=== PATIENT | female | born 1980 | race Caucasian/White ===

== ENCOUNTER 2022-06-14 13:43 | Emergency (ER) | payer OTHER, SELFPAY ==
--- NOTE | 2022-06-14 13:46 | ED.EAR ---
HPI - Ear Problem General Chief complaint: Ear Stated complaint: EARACHE Time Seen by Provider: 06/14/22 13:52 Source: patient and RN notes reviewed Mode of arrival: ambulatory Limitations: no limitations History of Present Illness HPI Narrative: 42-year-old female presents with concern for left ear pressure. She reports mild right ear pressure. She reports she had ear pain, the pain is improving but she still has a lot of pressure. She denies sinus congestion, pain, drainage, cough. She denies drainage from the ear. She denies fever, body aches, chills, sweats. She reports she tried Sudafed without relief Complaint: ear pain Related Data Home Medications Medication Instructions Recorded Confirmed dextroamphetamine-amphetamine ER 40 mg PO AC 06/14/22 06/14/22 20 mg 24hr capsule,extend release dextroamphetamine-amphetamine ER 30 mg PO DIRECTED 06/14/22 06/14/22 30 mg 24hr capsule,extend release Allergies Allergy/AdvReac Type Severity Reaction Status Date / Time No Known Allergies Allergy Verified 06/14/22 13:50 Review of Systems Review of Systems: CONSTITUTIONAL: Denies malaise, chills, sweats, or fever. EYES: Denies visual changes, redness, or discharge. ENT: Denies rhinorrhea, congestion, sinus pain, and sore throat. Reports bilateral ear pressure, worse on the left CARDIOVASCULAR: Denies chest pain, palpitations, or edema. RESPIRATORY: Denies cough. Denies dyspnea. GASTROINTESTINAL: Denies abdominal pain, nausea, vomiting, diarrhea SKIN: Denies rash or itching. MUSCULOSKELETAL: Denies myalgia. NEUROLOGIC: Denies headache. All systems reviewed & are unremarkable except as noted in HPI and below PMFSH Comments At time of signature, agree with nursing past medical, surgical, social and family history. There is no relevant family history pertinent to the presenting complaint Exam Narrative: GENERAL: Well-appearing, well-nourished, and in no acute distress. HEAD: Normocephalic EYES: PERRLA, conjunctivae clear ENT: Nares clear, turbinates edematous, clear discharge. Mucous membranes moist. TM pearly modi with dull light reflex bilaterally; no tragal tenderness. Oropharynx not erythematous without lesions. Tonsils not enlarged and without exudate, no drooling, no hoarseness, no trismus, uvula midline. NECK: Supple. No lymphadenopathy CHEST: Clear to auscultation, breath sounds equal. No wheezing, rhonchi, rales, or stridor. No respiratory distress, speaks in full sentences. HEART: Regular rate and rhythm. No murmur heard. SKIN: Warm, dry, no rash. NEURO: Alert and oriented x3. PSYCH: Normal mood and affect Course Course Emergency Course: Patient is aware of diagnosis, understands and agrees to treatment plan. Anticipatory guidance given. Patient agrees to follow-up as directed and is aware of reasons to seek care at the emergency department. Portions of this record may have been created with voice recognition software Level of Care: Express Care Visit Vital Signs Vital signs: Reviewed. Medical Decision Making MDM Narrative Medical decision making narrative: Differential diagnosis considered: Malhotra virus, strep pharyngitis, allergic rhinitis, upper respiratory tract infection, sinusitis, rhinosinusitis, nasopharyngitis. viral pharyngitis, otitis media, otitis externa, otitis effusion, cerumen impaction, foreign body. Exam findings show no acute concerns or changes; patient is non-toxic appearing and is in no distress. Patient is appropriate for outpatient treatment and follow-up. Critical Care Time Critical Care Time Critical Care Time: No Discharge Plan Discharge Clinical Impression: Fluid level behind tympanic membrane of left ear Patient Disposition: Home, Self-Care Condition: Stable Instructions: Fluid In The Ear (Serous Otitis Media) (ED) Additional Instructions: Take medications as prescribed Recommend antihistamine such as Benadryl at night time and Zyrtec or Allegr
[2022-06-14 13:52] VITALS: BP 111/70; PULSE 93; RESP 16; TEMP 36.4; O2SAT 100
== END 2022-06-14 14:05 | disposition home or self-care (01) ==
PROVIDERS: Emergency Provider Nurse Practitioner
DX: H73.892 Other specified disorders of tympanic membrane, left ear (principal)
CPT/HCPCS: 99213; G0463

== ENCOUNTER 2022-09-06 09:25 | Emergency (ER) | payer OTHER, SELFPAY ==
[2022-09-06 09:32] VITALS: BP 122/76; PULSE 115; RESP 20; TEMP 36.4; O2SAT 100
--- NOTE | 2022-09-06 09:51 | ED.GENADULT ---
HPI - General Adult General Chief complaint: Anxiety Stated complaint: ANXIETY Time Seen by Provider: 09/06/22 09:51 Source: patient Mode of arrival: ambulatory Limitations: no limitations History of Present Illness HPI narrative: 42 yo F presents with c/o feeling down and unable to cope with her everyday stresses . States this first started a few months ago. 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 Today she states she was unable to go to work due to being tearful. States her and kids are a good support systems at home but that she still just does not feel her normal self. Does not feel like eating and is having a hard time sleeping. States that she does not enjoy the things that she use to. Last suffered from depression at the age of 19. Thinks this is episodal and she will be able to get past it but would like to try to medication to help. Appt with her PCP was cancelled Friday due to weather. She denies SI/HI. all systems reviewed and negative except as noted above. Related Data Home Medications Medication Instructions Recorded Confirmed dextroamphetamine-amphetamine ER 40 mg PO AC 06/14/22 09/06/22 20 mg 24hr capsule,extend release dextroamphetamine-amphetamine ER 30 mg PO DIRECTED 06/14/22 09/06/22 30 mg 24hr capsule,extend release Allergies Allergy/AdvReac Type Severity Reaction Status Date / Time No Known Allergies Allergy Verified 09/06/22 09:39 Review of Systems Review of Systems: CONSTITUTIONAL: Denies fever, chills, or sweats. EYES: Denies visual changes, redness, or discharge. ENT: Denies rhinorrhea, congestion, sore throat, or otalgia. CARDIOVASCULAR: Denies chest pain, palpitations, or edema. RESPIRATORY: Denies cough or dyspnea. GASTROINTESTINAL: Denies abdominal pain, nausea, vomiting, or diarrhea. GENITOURINARY: Denies dysuria or hematuria. SKIN: Denies rash or itching. MUSCULOSKELETAL: Denies back pain, joint pain, or myalgia. NEUROLOGIC: Denies headache, numbness, or weakness. PSYCHIATRIC: reports depression All other systems reviewed are negative, except as documented in HPI. PMFSH Comments At time of signature, agree with nursing past medical, surgical, social and family history. There is no relevant family history pertinent to the presenting complaint. Exam Narrative: GENERAL: This is a well-nourished, well-developed patient, in no apparent distress. HEAD: normocephalic, atraumatic. EYES: PERRL. Sclera clear/white. Vision is grossly intact. EARS: External ears normal NOSE: External nose normal NECK: Neck supple, non-tender without lymphadenopathy, masses or thyromegaly. CARDIOVASCULAR: Regular rate and rhythm without murmurs, gallops, or rubs. RESPIRATORY: Clear to auscultation. Breath sounds equal bilaterally. No wheezes, rales, or rhonchi. SKIN: warm, Dry, intact with no suspicious lesions or rash, good texture and turgor. NEURO: awake, alert, and oriented to person, place and time. There were no obvious focal neurologic abnormalities. EXTREMITIES: No joint tenderness, effusion, or edema noted. Course Course Level of Care: Express Care Visit Vital Signs Vital signs: Vital Signs Temperature 36.4 C 09/06/22 09:32 Pulse Rate 115 H 09/06/22 09:32 Respiratory Rate 20 09/06/22 09:32 Blood Pressure 122/76 09/06/22 09:32 Pulse Oximetry 100 09/06/22 09:32 Temperature 36.4 C 09/06/22 09:32 Pulse Rate 115 H 09/06/22 09:32 Respiratory Rate 20 09/06/22 09:32 Blood Pressure 122/76 09/06/22 09:32 Pulse Oximetry 100 09/06/22 09:32 Reviewed Medical Decision Making MDM Narrative Medical decision making narrative: will start patient on prozac. explained to her that she needs to follow up with a PCP TORRIE. Gave her the referral line for [facility] PCPs. Patient is aware of diagnosis, understands and agrees to treatment plan. Anticipatory guidance given. Patient agrees to follow-up as directed and is aware of reas
== END 2022-09-06 10:06 | disposition home or self-care (01) ==
PROVIDERS: Emergency Provider Nurse Practitioner Family
DX: F32.A Depression, unspecified (principal); F90.9 Attention-deficit hyperactivity disorder, unspecified type
CPT/HCPCS: 99213; G0463

== ENCOUNTER 2024-01-26 15:40 | Outpatient (CLI) | payer OTHER, SELFPAY ==
[2024-01-26 15:57] LABS: Basophils Percent Auto 0.6 % (0.2-1.2); Eosinophils Absolute Auto 0.1 K/mm3 (0-0.3); Hematocrit 40.2 % (37.0-47.0); Hemoglobin 12.9 g/dL (12.0-15.0); Immature Granulocyte Absolute 0.01 K/mm3 (0.00-0.031); Immature Granulocyte Percent A 0.2 % (0-0.5); Lymphocytes Absolute Auto 1.14 K/mm3 (0.9-3.2); Lymphocytes Percent Auto 23.3 % (18.3-44.2); Mean Corpuscular HGB Conc 32.1 g/dl (32-36); Mean Corpuscular Hemoglobin 27.9 pg (26-34); Mean Corpuscular Volume 86.8 fl (80-100); Mean Platelet Volume 11.3 fl (7.4-10.4); Monocytes Absolute Auto 0.5 K/mm3 (0.1-0.6); Monocytes Percent Auto 10.2 % (2.6-8.5); Neutrophils Absolute Auto 3.2 K/mm3 (1.3-6.7); Neutrophils Percent Auto 64.7 % (45.5-73.1); Platelet Count Result 195 k/mm3 (150-375); Red Blood Count 4.63 M/mm3 (4.2-5.4); Red Cell Distribution Width 13.5 % (11.5-14.5); White Blood Count 4.9 K/mm3 (4.5-10.0)
[2024-01-26 17:08] LABS: Alanine Aminotransferase 10 U/L (6-35); Albumin Level 4.6 g/dL (3.5-5.1); Alkaline Phosphatase 55 U/L (38-126); Anion Gap 8 mmol/L (4-12); Aspartate Amino Transferase 22 U/L (14-36); Bilirubin,Total 0.5 mg/dL (0.2-1.3); Blood Urea Nitrogen 13 mg/dL (7-17); Carbon Dioxide 25 mmol/L (22-30); Chloride 106 mmol/L (98-107); Estimated Glomerular Filt Rate > 60; Glucose 93 mg/dL (65-110); Lactate Dehydrogenase 163 U/L (120-246); Potassium 3.7 mmol/L (3.4-5.0); Sodium 139 mmol/L (137-145)
[2024-01-26 17:19] LABS: Iron 28 ug/dL (37-170)
[2024-01-26 17:29] LABS: Percent Iron Saturation 6 % (20-50)
[2024-01-26 17:57] LABS: Ferritin 5.17 ng/mL (6.24-137)
[2024-01-26 18:13] LABS: Folic Acid 9.6 ng/mL (2.76->20)
[2024-01-29 03:03] LABS: Immunoglobulin A 96 mg/dL (47-310); TTG IGA AB <1.0 U/mL
[2024-01-29 14:24] LABS: Methylmalonic Acid 90 nmol/L (55-335)
[2024-01-30 13:47] LABS: Soluble Transferrin Receptor 2.02 mg/L (0.76-1.76)
== END 2024-01-26 15:41 | disposition home or self-care (01) ==
PROVIDERS: Nurse Practitioner Family; PCP Family Medicine; Visit Provider Internal Medicine Hematology & Oncology
DX: D50.0 Iron deficiency anemia secondary to blood loss (chronic) (principal)
CPT/HCPCS: 36415; 80053; 82607; 82728; 82746; 82784; 83540; 83550; 83615; 83921; 84238; 85025; 86364

== ENCOUNTER 2024-03-11 06:00 | Day surgery (SDC) | payer OTHER, SELFPAY ==
[2024-03-03 12:21] VITALS: BMI 26.9
[2024-03-04 12:17] VITALS: BMI 26.6
[2024-03-11 06:55] VITALS: BP 102/70; PULSE 67; RESP 15; TEMP 36.6; O2SAT 100
--- NOTE | 2024-03-11 07:31 | WPDHPUPDATE1 ---
History and Physical Update Update Date/Time: 03/11/24 07:31 History and Physical has been reviewed, including an updated exam of the patient. There are NO changes in the patient's condition. Risks, benefits, and alternatives have been discussed and questions answered. Patient agrees to proceed with procedure.
[2024-03-11] MEDS: LACTATED RINGERS 1,000 ML 150 ML IV CONT (08:04)
--- NOTE | 2024-03-11 08:04 | WPDANESEPPF ---
Anes - Initial Pre Proc Eval Procedure: Operation Date: 03/11/24 08:00 Proposed Procedures p Esophagogastroduodenoscopy - Khurram Barcenas MD s Diagnostic Colonoscopy - Khurram Barcenas MD Date/Time: 03/11/24 08:04 Surgeon: Khurram Barcenas MD Pre Op Diagnosis: Iron deficiency anemia. Non-Celiac gluten w/o Patient Data Age: 43 Gender: F Height: 1.57 m Weight: 65.9 kg Last Vital Signs Temp 36.6 C 03/11/24 06:55 Pulse 67 03/11/24 06:55 Resp 15 03/11/24 06:55 BP 102/70 03/11/24 06:55 Pulse Ox 100 03/11/24 06:55 O2 Del Method Room Air 03/11/24 06:55 Allergies Allergy/AdvReac Type Severity Reaction Status Date / Time potassium sorbate AdvReac Intermediate Blister Verified 03/11/24 06:53 gluten AdvReac Abdominal Verified 03/11/24 06:53 Pain Home Medications Medication Instructions Recorded Confirmed Type naproxen sodium 220 mg capsule 220 mg PO BID PRN Pain (Scale 09/22/23 03/11/24 History (Aleve) Score 1-3) tranexamic acid 650 mg tablet 650 mg PO TID 09/22/23 03/11/24 History dextroamphetamine-amphetamine ER 60 mg PO DIRECTED #90 caps 03/10/24 03/11/24 Rx 20 mg 24hr capsule,extend release Patient hx anesthesia problems: none Family hx anesthesia problems: none Results Review: All pre-operative results and documents have been reviewed as part of the pre-operative evaluation. [facility] Past Medical History Medical History Hx of LEEP (loop electrosurgical excision procedure) of cervix complicating 2018 Surgical History Surgical History Hx of tonsillectomy 2000 Social History Social History Smoking status: Never smoker Alcohol intake: current Drinks per week: 2 Substance use: never Substance use type: does not use Lack of Transportation: No Lack of Food: Never True Current Housing: I Have Housing Concerned About Future Housing: No Difficulty Paying Gas/Electric Bills: No Difficulty Paying for Meds: No Currently Unemployed: No Education: Master's Degree or Higher Difficulty w/ Childcare or Family Care: No Living arrangements: with family Occupation/Education: 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 Gender identity (if verbalized by the patient): Female Sexual Orientation (if Verbalized by the Patient): Straight or Heterosexual Spiritual care concerns: No Agree to blood products: Yes Anes - Eval Final PreProcedure Day of Procedure 03/11/24 08:04 Patient weight: overweight Heart: regular rate and rhythm Lungs: clear to auscultation Airway: Mallampati scale class III Neurological: alert and oriented Last oral intake: >/= 8 hours ASA classification: II Emergent: no Anesthetic plan: proceed Anesthesia type and monitoring: general GIVS and standard monitoring Results Review: All pre-operative results and documents have been reviewed as part of the pre-operative evaluation. Informed Consent: The patient's anesthetic plan and its attendant risks and benefits were discussed with the patient/family/POA. Questions were solicited and answers provided to the satisfaction of the patient/family/POA.
[2024-03-11 08:40] VITALS: BP 94/65; PULSE 80; RESP 18; O2SAT 100
[2024-03-11 08:50] VITALS: BP 104/63; PULSE 68; RESP 16; O2SAT 100
--- NOTE | 2024-03-11 08:50 | WPDANESPN ---
Anes - Prog Note Post-Op Date/Time: 03/11/24 08:50 Cardiovascular status: normal Respiratory status: normal Airway patency: baseline Mental status: baseline Post-Op hydration status: normal Vital Signs: Last Vital Signs Temp 36.6 C 03/11/24 06:55 Pulse 80 03/11/24 08:45 Resp 18 03/11/24 08:45 BP 94/65 L 03/11/24 08:45 Pulse Ox 100 03/11/24 08:45 O2 Del Method Room Air 03/11/24 08:45 Pain Score (VAS): 0 I/O: Intake & Output 03/10/24 03/11/24 03/11/24 23:59 07:59 15:59 Intake Total 300 Balance 300 Patient Feedback: Patient satisfied with anesthetic care.
[2024-03-11 09:00] VITALS: BP 100/68; PULSE 63; RESP 16; O2SAT 100
== END 2024-03-11 09:08 | disposition home or self-care (01) ==
PROVIDERS: PCP Family Medicine; Visit Provider Internal Medicine Gastroenterology
PROC: 0DJ08ZZ Inspection of Upper Intestinal Tract, Via Natural or Artificial Opening Endoscopic (ICD-10-PCS; CPT 43235; principal; 2024-03-11 08:00)
PROC: 0DJD8ZZ Inspection of Lower Intestinal Tract, Via Natural or Artificial Opening Endoscopic (ICD-10-PCS; CPT 45378; 2024-03-11 08:00)
DX: Z12.11 Encounter for screening for malignant neoplasm of colon (principal); K64.8 Other hemorrhoids; D50.9 Iron deficiency anemia, unspecified; R19.5 Other fecal abnormalities; R11.0 Nausea
CPT/HCPCS: 45378; 43239

== ENCOUNTER 2024-03-11 07:00 | Outpatient (NON) | payer OTHER, SELFPAY | END 2024-03-11 07:01 | disposition home or self-care (01) | LOC: ANHLAB 03-12 08:20 | PROVIDERS: PCP Family Medicine; Visit Provider Internal Medicine Gastroenterology | DX: R14.0 Abdominal distension (gaseous) (principal) | CPT/HCPCS: 88305 ==

== ENCOUNTER 2024-05-14 13:54 | Outpatient (CLI) | payer OTHER, SELFPAY ==
[2024-05-14 14:20] LABS: Basophils Percent Auto 0.7 % (0.2-1.2); Eosinophils Absolute Auto 0.1 K/mm3 (0-0.3); Eosinophils Percent Auto 0.9 % (0-4.4); Hematocrit 39.6 % (37.0-47.0); Hemoglobin 12.7 g/dL (12.0-15.0); Immature Granulocyte Absolute 0.02 K/mm3 (0.00-0.031); Immature Granulocyte Percent A 0.4 % (0-0.5); Lymphocytes Absolute Auto 1.49 K/mm3 (0.9-3.2); Lymphocytes Percent Auto 26.3 % (18.3-44.2); Mean Corpuscular HGB Conc 32.1 g/dl (32-36); Mean Corpuscular Hemoglobin 27.9 pg (26-34); Mean Platelet Volume 11.1 fl (7.4-10.4); Monocytes Absolute Auto 0.5 K/mm3 (0.1-0.6); Monocytes Percent Auto 9.4 % (2.6-8.5); Neutrophils Absolute Auto 3.5 K/mm3 (1.3-6.7); Neutrophils Percent Auto 62.3 % (45.5-73.1); Platelet Count Result 223 k/mm3 (150-375); Red Blood Count 4.55 M/mm3 (4.2-5.4); Red Cell Distribution Width 12.9 % (11.5-14.5); White Blood Count 5.7 K/mm3 (4.5-10.0)
[2024-05-14 14:50] LABS: Iron 43 ug/dL (37-170)
[2024-05-14 15:01] LABS: Percent Iron Saturation 10 % (20-50)
[2024-05-14 15:07] LABS: Alanine Aminotransferase 11 U/L (6-35); Albumin Level 4.5 g/dL (3.5-5.1); Alkaline Phosphatase 57 U/L (38-126); Anion Gap 6 mmol/L (4-12); Aspartate Amino Transferase 22 U/L (14-36); Bilirubin,Total 0.7 mg/dL (0.2-1.3); Blood Urea Nitrogen 10 mg/dL (7-17); Calcium 9.2 mg/dL (8.4-10.2); Carbon Dioxide 25 mmol/L (22-30); Chloride 103 mmol/L (98-107); Estimated Glomerular Filt Rate > 60; Glucose 105 mg/dL (65-110); Sodium 134 mmol/L (137-145)
[2024-05-14 15:22] LABS: Ferritin 5.93 ng/mL (6.24-137)
[2024-05-14 15:54] LABS: Folic Acid 5.1 ng/mL (2.76->20)
== END 2024-05-14 13:55 | disposition home or self-care (01) ==
LOC: ANHLAB 13:57
PROVIDERS: PCP Family Medicine; Visit Provider Internal Medicine Hematology & Oncology
DX: D50.0 Iron deficiency anemia secondary to blood loss (chronic) (principal)
CPT/HCPCS: 36415; 80053; 82607; 82728; 82746; 83540; 83550; 85025

== ENCOUNTER 2024-07-14 15:28 | Outpatient (CLI) | payer OTHER, SELFPAY ==
[2024-07-14 16:15] LABS: Hematocrit 39.9 % (37.0-47.0); Hemoglobin 12.7 g/dL (12.0-15.0); Mean Corpuscular HGB Conc 31.8 g/dl (32-36); Mean Corpuscular Hemoglobin 28.6 pg (26-34); Mean Corpuscular Volume 89.9 fl (80-100); Mean Platelet Volume 10.9 fl (7.4-10.4); Platelet Count Result 330 k/mm3 (150-375); Red Blood Count 4.44 M/mm3 (4.2-5.4); Red Cell Distribution Width 16.2 % (11.5-14.5)
== END 2024-07-14 15:29 | disposition home or self-care (01) ==
LOC: ANHLAB 15:29
PROVIDERS: PCP Family Medicine; Visit Provider Obstetrics & Gynecology
DX: N93.9 Abnormal uterine and vaginal bleeding, unspecified (principal)
CPT/HCPCS: 36415; 85027

== ENCOUNTER 2024-07-19 00:38 | Day surgery (SDC) | payer OTHER, SELFPAY ==
[2024-07-16 08:15] VITALS: BMI 25.6
--- NOTE | 2024-07-16 08:21 | PC.NURSE ---
Report to the Outpatient Waiting Room, entrance under the green pavilion located off [facility], at time _0700_ on date _[id number]_. Planned Procedure Time: _0900_.? Time changes happen often and if your time is changed the preop area will call you the afternoon before. - You and your visitor will be asked to self-screen and do not enter if you have any COVID symptoms. Please call surgeon if you need to reschedule. - A mask is optional within the hospital at this time. Patients may have clear liquids (water, carbonated beverages, clear teas, apple juice) until 3 hours prior to surgery with a maximum of 20 ounces. - No food from midnight until time of surgery and no smoking. This includes no chewing gum, candy or mints. Take only the following medications with a SIP of water on the morning of surgery: __None__ DO NOT STOP ANY OF YOUR OTHER PRESCRIPTION MEDICATIONS PRIOR TO SURGERY EXCEPT THE FOLLOWING Medications to discontinue per physician ____Patient says she will not take Naproxen until after surgery.___ Please no make-up, nail frisian, hairspray, perfume, deodorant, or body powder the day of surgery.? No jewelry (including any body piercings) or valuables the day of surgery, leave them at home.? Please take a shower or bath the night before, or the morning of, surgery with an antibacterial soap.? Wear comfortable, loose fitting clothing.? - Jewelry must be removed prior to entering the operating room.? Rings and piercings that are not removed may be cut off. - The hospital will not accept responsibility for valuables.? - Please leave all valuables, including medications, at home the day of surgery. If you are going home after surgery, a licensed trackless trolley driver must drive you home.? - NO public transportation without another adult if you receive anesthesia. - We recommend that an adult stay with you for 24 hours following discharge. - We also recommend that you do not drive, make important decision, drink alcoholic beverages, or take any drugs that were not prescribed by your health care provider for at least 24 hours after your discharge time. Follow any additional instructions given to you from your surgeon. Telephone instructions given to _Rosalba_and asked if any additional questions and then verbalized understanding. Patient advised to call surgeon office or pre surgery nurse liaison [phone] if any additional questions.
--- NOTE | 2024-07-19 07:28 | P.HPUP_ITS ---
History and Physical Update Update Date/Time: 07/19/24 07:28 44-year-old female with ultrasound revealing thickened endometrium. Therefore will proceed with hysteroscopy and tissue sampling in the form of D&C. Long- term likely hysterectomy pending results of today's studies. Assessment: 1. Menometrorrhagia 2. Dysmenorrhea 3. Endometrial hypertrophy Plan: 1. Hysteroscopy with D&C History and Physical has been reviewed, including an updated exam of the patient. There are NO changes in the patient's condition. Risks, benefits, and alternatives have been discussed and questions answered. Patient agrees to proceed with procedure.
[2024-07-19 08:00] VITALS: BP 99/48; PULSE 86; RESP 14; TEMP 36.5; O2SAT 100
[2024-07-19] MEDS: LACTATED RINGERS 1,000 ML 30 ML IV CONT (08:00)
[2024-07-19] MEDS: ACETAMINOPHEN 500 MG TABLET 1000 MG PO (08:00)
[2024-07-19 08:04] LABS: BEDSIDEPREGUCG Negative (Negative)
--- NOTE | 2024-07-19 08:13 | P.PNAN_ITS ---
Anes - Initial Pre Proc Eval Procedure: Operation Date: 07/19/24 09:00 Proposed Procedures p Hysteroscopy Dilation and Curettage - Pato Talbert MD Date/Time: 07/19/24 08:13 Surgeon: Pato Talbert MD Pre Op Diagnosis: Abnormal Uterine Bleeding Patient Data Age: 44 Gender: F Height: 1.57 m Weight: 63 kg Last Vital Signs Temp 36.5 C 07/19/24 08:00 Pulse 86 07/19/24 08:00 Resp 14 07/19/24 08:00 BP 99/48 L 07/19/24 08:00 Pulse Ox 100 07/19/24 08:00 O2 Del Method Room Air 07/19/24 08:00 Allergies Allergy/AdvReac Type Severity Reaction Status Date / Time potassium sorbate AdvReac Intermediate Blister Verified 07/19/24 08:04 gluten AdvReac Abdominal Verified 07/19/24 08:04 Pain Home Medications ?Medication ?Instructions ?Recorded ?Confirmed ?Type naproxen sodium 220 mg capsule 220 mg PO BID PRN Pain (Scale 09/22/23 07/16/24 History (Aleve) Score 1-3) dextroamphetamine-amphetamine ER 60 mg (3 x 20 mg) PO DIRECTED 06/24/24 07/16/24 Rx 20 mg 24hr capsule,extend release #90 caps Laboratory Tests 07/19/24 08:00 POC Urine HCG, Qual Negative (Negative) Patient hx anesthesia problems: none Family hx anesthesia problems: none Results Review: All pre-operative results and documents have been reviewed as part of the pre- operative evaluation. [facility] Past Medical History Medical History Iron deficiency anemia, unspecified IBS (irritable bowel syndrome) Irregular periods Hx of LEEP (loop electrosurgical excision procedure) of cervix complicating 2018 Surgical History Surgical History History of endoscopy (~03/2024) H/O colonoscopy (~03/2024) Hx of tonsillectomy 2000 Social History Social History Smoking status: Never smoker Second hand tobacco smoke exposure: No Alcohol intake: current Drinks per week: 2 Substance use: never Substance use type: does not use Do You Feel Safe in your Home?: Yes Lack of Transportation: No Lack of Food: Never True Current Housing: Decline to Answer Concerned About Future Housing: Decline to Answer Difficulty Paying Gas/Electric Bills: Decline to Answer Difficulty Paying for Meds: Decline to Answer Currently Unemployed: Decline to Answer Education: Decline to Answer Difficulty w/ Childcare or Family Care: Decline to Answer Living arrangements: with family Additional living arrangements comments: Occupation/Education: 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 Gender identity (if verbalized by the patient): Female Sexual Orientation (if Verbalized by the Patient): Straight or Heterosexual Spiritual care concerns: No Agree to blood products: Yes Anes - Eval Final PreProcedure Day of Procedure 07/19/24 08:13 Patient weight: normal Heart: regular rate and rhythm Lungs: clear to auscultation Airway: Mallampati scale class 1 Neurological: alert and oriented Last oral intake: >/= 8 hours ASA classification: II Emergent: no Anesthetic plan: proceed Anesthesia type and monitoring: general GIVS and standard monitoring Results Review: All pre-operative results and documents have been reviewed as part of the pre-o perative evaluation. Informed Consent: The patient's anesthetic plan and its attendant risks and benefits were discussed with the patient/family/POA. Questions were solicited and answers provided to the satisfaction of the patient/family/POA.
[2024-07-19 08:54] VITALS: BP 97/65; PULSE 57; RESP 14; O2SAT 100
--- NOTE | 2024-07-19 08:59 | P.OP_ITS ---
Procedure Note - Detailed Date of Procedure 07/19/24 Pre-op Diagnosis 1. Menometrorrhagia 2. Dysmenorrhea 3. Endometrial hypertrophy Post-op Diagnosis Same Procedure Performed 1. Hysteroscopy 2. Dilation and curettage Surgeon Pato Talbert MD Anesthesia MAC Findings No polyps or fibroids were noted, there was significant hypertrophy and tissue removed. Description of Procedure Patient prepped and draped in the usual manner for this procedure. Hysterosco pic exam revealed thickened tissue throughout without specific polyp or fibroid noted. Sharp curetting throughout the cavity revealed a moderate amount of tissue which was sent for pathologic diagnosis. There was no significant bleeding at the end the procedure and the patient was sent to the recovery room in stable condition. Estimated Blood Loss 10 Drains No Packing No Pathology Yes Complications No immediate complications Condition Stable Disposition PACU [facility] Billing Surgery - Charge Forward: Surgery Billing
[2024-07-19 09:03] VITALS: O2SAT 100
[2024-07-19 09:20] VITALS: BP 97/51; PULSE 63; RESP 14; O2SAT 100
[2024-07-19 09:50] VITALS: BP 97/58; PULSE 67; RESP 14
--- OUTSIDE RECORDS SUMMARY | 2024-07-24 09:40 | XMS_ITS | Encounter Summary ---
Author Organization [facility] Address [address] [place] [address] Care Team Providers Care Management Nurse Rn Name Role Phone Tracey Patel MD Primary Care Provider [phone] Encounter Details Date Type Department Care Team (Latest Contact Info) Description 02/22/2021 Travel Social History Tobacco Use Types Packs/Day Years Used Date Smoking Tobacco: Never Smokeless Tobacco: Never Alcohol Use Standard Drinks/Week Comments Yes 0 (1 standard drink = 0.6 oz pur e alcohol) socially Sex and Gender Information Value Date Recorded Sex Assigned at Not on file Gender Identity Not on file Sexual Orientation Not on file COVID-19 Exposure Response Date Recorded In the last month, have you been in contact with someone who was confirmed or suspected to have Coronavirus / COVID-19? No / Unsure 02/22/2021 2:24 PM CDT documented as of this encounter Plan of Treatment Not on file documented as of this encounter Visit Diagnoses Not on filedocumented in this encounter Care Teams Management Nurse Rn Relationship Specialty Start Date End Date Tracey Patel MD PCP - General Family Medicine 06/13/17 documented as of this encounter
--- OUTSIDE RECORDS SUMMARY | 2024-07-24 09:40 | XMS_ITS | Referral Summary ---
Author Organization [facility] Address [address] [place] [address] Care Team Providers Care Branch Office Manager Name Role Phone Tracey Patel MD Primary Care Provider Source Comments [facility],non-owned Affiliates and Associated Physician Practices is amultiple site organization consisting of ambulatory clinics and hospital sitesin [place], [place], [place] and [place]. This disclosure is being madepursuant to the Care Everywhere program and may not contain all information available regarding this patient. Last updated 18.[facility] Allergies No known active allergies Medications * Be aware that medications may not be up to date on this document. Alwaysverify current medications with the patient. Medication Sig Dispensed Refills Start Date End Date Status amphetamine-dextroam phetamine (ADDERALL) 10 MG tablet Take 1 (one) tablet by mouth daily with lunch 30 tablet 03/01/2021 Active amphetamine-dextroam phetamine XR 24hr (ADDERALL XR) 30 MG capsule Take 1 (one) capsule by mouth every morning 30 capsule 03/01/2021 Active Active Problems Problem Noted Date Diagnosed Date Attention deficit hyperactiv ity disorder (ADHD), predominantly inattentive type 04/16/2018 Left breast lump 07/09/2017 Resolved Problems Problem Noted Date Diagnosed Date Resolved Date Cyst of right ovary 06/17/2017 07/09/20 17 Immunizations Name Administration Dates Next Due INFLUENZA VACCINE, QUADR. (F LUZONE; FLULAVAL; FLUARIX; AFLURIA QUADRIVALENT; 6MO+), 0.5 ML (IIV4) 05/19/2020 Social History Tobacco Use Types Packs/Day Years Used Date Smoking Tobacco: Never Smokeless Tobacco: Never Alcohol Use Standard Drinks/Week Comments Yes 0 (1 standard drink = 0.6 oz pur e alcohol) socially Sex and Gender Information Value Date Recorded Sex Assigned at Not on file Gender Identity Not on file Sexual Orientation Not on file Last Filed Vital Signs Vital Sign Reading Time Taken Comments Blood Pressure 115/69 05/19/2020 10:58 AM CDT Pulse 71 05/19/2020 10:58 AM CDT Temperature 36.6 ??C (97.9 ??F) 05/19/2020 10:58 AM C DT Respiratory Rate - - Oxygen Saturation - - Inhaled Oxygen Concentration - - Weight 62.1 kg (137 lb) 05/19/2020 10:58 AM CDT Height 157.5 cm (5' 2 ) 05/19/2020 10:58 AM CDT Body Mass Index 25.06 05/19/2020 10:58 AM CDT Plan of Treatment Not on file Procedures Procedure Name Priority Date/Time Associated Diagnosis Comments MAMMO BILAT DIAGNOSTIC Routine 07/17/2017 10:10 AM HYDRAULIC PRESS OPERATOR Left breast lump PAP IG LB +HPV APTIMA REFLEX 16,18/45 Routine 07/09/2017 3:07 PM HYDRAULIC PRESS OPERATOR Well woman exam with routine gynecological exam Screening for HPV (human papillomavirus) COMPREHENSIVE METABOLIC PANEL Routine 06/17/2017 10:22 AM HYDRAULIC PRESS OPERATOR Annual physical exam LIPID PROFILE W TCHOL/HDL Routine 06/17/2017 10:22 AM HYDRAULIC PRESS OPERATOR Annual physical exam from Last 3 Months or Most Recently Relevant to Health Maintenance Results * MAMMO DIAG DIRECT DIGITAL IMAGE BILA G0202 (07/17/2017 10:10 AM HYDRAULIC PRESS OPERATOR) Anatomical Region Laterality Modality Bilateral Mammography 07/17/2017 11:1 7 AM HYDRAULIC PRESS OPERATOR Narrative 07/17/2017 11:24 AM HYDRAULIC PRESS OPERATOR DIGITAL BILATERAL DIAGNOSTIC MAMMOGRAMS WITH CAD CORRELATION AND 3D TOMOSYNTHESIS PREVIOUS EXAM DATE: None. Baseline. INDICATIONS: Palpable soft tissue fullness superior left breast reported by patient's physician. TECHNIQUE: Standard views right and left breast, MLO and CC with 3-D tomosynthesis and CAD correlation. 90 degree lateral view left breast with 3-D tomosynthesis and CAD correlation. TISSUE DENSITY: Heterogeneously dense. This may lower the sensitivity of mammography. ??Please correlate with clinical exam. FINDINGS: No suspicious mass, architectural distortion or clustered microcalcification identified. Ultrasound examination performed this morning shows two small cysts at the superior left breast. No suspicious solid abnormality. Results were discussed in detail with the patient at the time of the examination. ASSESSMENT: BI-RADS 2 - Benign findings. RECOMMENDATIONS: Screening mammogram age 40. Manage patient on clinical basis. The above findings should be correlated with physical examination. ??A relatively nonspecific study should not preclude additional evaluation if suspicious findings are present clinically. An [employer] Certified Facility. [facility] utilize [employer] as a reminder system to notify patients of their next recommended mammogram. Edited by Jennifer Stockton on 07/17/2017 11:23 AM Joyce Saldivar MD MAMMO ORDERABLES * (ABNORMAL) PAP IG LB +HPV APTIMA REFLEX 16,18/45 (07/09/2017 3:07 PM HYDRAULIC PRESS OPERATOR) Diagnosis (A) [facility] ACCOUNT BILL Comment: EPITHELIAL CELL ABNORMALITY. HIGH-GRADE SQUAMOUS INTRAEPITHELIAL LESION (HGSIL); MODERATE DYSPLASIA IS PRESENT. Human papillomavirus Aptima Positive( A) Negative [facility] ACCOUNT BILL Comment: This test detects fourteen high-risk HPV types (16/18/31/33/35/39/45/ 51/52/56/58/59/66/68) without differentiation. Specimen Adequacy [facility] ACCOUNT BILL Comment: Satisfactory for evaluation. ??Endocervical and/or squamous metaplastic cells (endocervical component) are present. Clinician Provided ICD10 [facility] ACCOUNT BILL Comment: Z01.419 Z11.51 N63.20 Performed by [facility] ACCOUNT BILL Comment:Yasemin Cesar Cytote chnologist (ASCP) Electronically Signed by [facility] ACCOUNT BILL Comment:Zaria Mathew MD, P athologist Comment . [facility] ACCOUNT BILL Pathologist Provided ICD10 [facility] ACCOUNT BILL Comment:R87.613 Note [facility] ACCOUNT BILL Comment: The Pap smear is a screening test designed to aid in the detection of premalignant and malignant conditions of the uterine cervix. ??It is not a diagnostic procedure and should not be used as the sole means of detecting cervical cancer. ??Both false-positive and false-negative reports do occur. ? . IGLBP CPT Code Automation [facility] ACCOUNT BILL Comment: This liquid based ThinPrep(R) pap test was screened with the use of an image guided system. PART OF UTERINE CERVIX / Unknown 07/09/2017 3:07 PM HYDRAULIC PRESS OPERATOR 07/09/2017 Narrative [facility] ACCOUNT BILL - 07/15/2017 5:10 PM HYDRAULIC PRESS OPERATOR Source.............Cervix LMP / Prev Treat...BJW=[id number] No. of containers..01 ThinPrep Vial Resulting Agency Comment [facility] [address] ??Jason AguiarVannesa [id number] Joyce Saldivar MD LAB - PATHOLOGY/CYTO LOGY ORDERABLES [facility] ACCOUNT BILL [address] [place] [address] * LIPID PROFILE W TCHOL/HDL (06/17/2017 10:22 AM HYDRAULIC PRESS OPERATOR) Cholesterol 185 <200 mg/dL [facility] ACCOUNT BILL Triglycerides 39 <150 mg/dL [facility] ACCOUNT BILL HDL Cholesterol 83 >40 mg/dL [facility] ACCOUNT BILL VLDL Calculated 8 <=30 mg/dL [facility] ACCOUNT BILL LDL Calculated 94 <130 mg/dL [facility] ACCOUNT BILL Comment:LDL/HDL RATIO BLOOD (SSM) 1.1 <5.0 Cholesterol/HDL Ratio 2.2 <4.5 [facility] ACCOUNT BILL Comment:FASTING Blood BLOOD SPECIMEN / Unknown 06/17/2017 10:22 AM HYDRAULIC PRESS OPERATOR 06/17/2017 Narrative Resulting Agency Comment [facility] Health [facility] [address] ??[place] [phone] Tracey Patel MD LAB - CHEMISTRY ORDE RABLES [facility] ACCOUNT BILL [address] [place] [address] * (ABNORMAL) COMPREHENSIVE METABOLIC PANEL (06/17/2017 10:22 AM HYDRAULIC PRESS OPERATOR) Glucose 79 74 - 106 mg/dL [facility] ACCOUNT BILL BUN 12 7 - 21 mg/dL [facility] ACCOUNT BILL Creatinine 0.58 0.50 - 1.30 mg/dL [facility] ACCOUNT BILL eGFR by MDRD >60 >60 mL/min/1.7 3m2 [facility] ACCOUNT BILL eGFR by MDRD >60 >60 mL/min/1.7 3m2 [facility] ACCOUNT BILL Sodium 139 136 - 145 mmol/L [facility] ACCOUNT BILL Potassium 4.0 3.5 - 5.1 mmol/L [facility] ACCOUNT BILL Chloride 105 98 - 107 mmol/L [facility] ACCOUNT BILL CO2 26 22 - 31 mmol/L [facility] ACCOUNT BILL Calcium 8.9 8.5 - 10.1 mg/dL [facility] ACCOUNT BILL Protein Total 7.4 6.4 - 8.2 gm/dL [facility] ACCOUNT BILL Albumin 4.4 3.4 - 5.0 gm/dL [facility] ACCOUNT BILL Bilirubin Total 0.7 0.2 - 1.0 mg/dL [facility] ACCOUNT BILL Alkaline Phosphatase 53 38 - 126 U/L [facility] ACCOUNT BILL AST 13 5 - 40 U/L [facility] ACCOUNT BILL ALT 12(L) 13 - 61 U/L [facility] ACCOUNT BILL Comment:FASTING Blood BLOOD SPECIMEN / Unknown 06/17/2017 10:22 AM HYDRAULIC PRESS OPERATOR 06/17/2017 Narrative Resulting Agency Comment [facility] Health [facility] [address] ??[place] [phone] Tracey Patel MD LAB - CHEMISTRY LEXX RAMIREZ [facility] ACCOUNT BILL [address] [place] [address] from Last 3 Months or Most Recently Relevant to Health Maintenance Care Teams Branch Office Manager Relationship Specialty Start Date End Date Tracey Patel MD PCP - General Family Medicine 06/13/17
--- OUTSIDE RECORDS SUMMARY | 2024-07-24 09:40 | XMS_ITS | Encounter Summary ---
Author Organization [facility] Address [address] [place] [address] Care Team Providers Care Deep Submergence Vehicle Operator Name Role Phone Tracey Patel MD Primary Care Provider [phone] Reason for Visit * Reason Onset Date Comments MEDICATION REFILL 06/01/2020 MEDICATION REFILL 08/24/2020 Encounter Details Date Type Department Care Team (Late st Contact Info) Description 06/01/2020 Refill [facility] Medical [facility] - Family Medicine [id number] [place] [address] [phone] Tracey Patel MD [address] [place] [address] [phone] MEDICATION REFILL; MEDICATION REFILL Social History Tobacco Use Types Packs/Day Years [...] have Coronavirus / COVID-19? No / Unsure 05/09/2020 11:22 AM CDT documented as of this encounter Miscellaneous Notes * Telephone Encounter - Tracey Patel MD - 06/01/2020 10:46 AM CDT Let her know the refill was sent in for the 10 mg dose. * Telephone Encounter - Janae Rodriguez - 06/01/2020 9:12 AM CDT Rosalba Jimenez No Known Allergies Requested Prescriptions Pending Prescriptions Disp Refills ??? amphetamine-dextroamphetamine (ADDERALL) 5 MG tablet 30 tablet 0 Sig: Take 1 tablet by mouth daily with lunch Last Refill: 05/19/2020 Last Office Visit: 05/19/2020 documented in this encounter Plan of Treatment Not on file documented as of this encounter Visit Diagnoses Not on filedocumented in this encounter Care Teams Deep Submergence Vehicle Operator Relationship Specialty Start Date End Date Tracey Patel MD PCP - General Family Medicine 06/13/17 documented as of this encounter
--- OUTSIDE RECORDS SUMMARY | 2024-07-24 09:40 | XMS_ITS | Encounter Summary ---
Author Organization [facility] Address [address] [place] [address] Care Team Providers Care Certified Executive Chef Name Role Phone Tracey Patel MD Primary Care Provider [phone] Reason for Visit * Reason Onset Date Comments MEDICATION REFILL 07/03/2020 Encounter Details Date Type Department Care Team (Late st Contact Info) Description 07/03/2020 Refill [facility] Medical [facility] - Family Medicine [id number] [place] [phone] Tracey Patel MD [address] [place] [phone] MEDICATION REFILL Social History Tobacco Use Types Packs/Day Years Used Date Smoking Tobacco: Never Smokeless Tobacco: Never Alcohol Use Standard Drinks/Week Comments Yes 0 (1 standard drink = 0.6 oz pur e alcohol) socially Sex and Gender Information Value Date Recorded Sex Assigned at Not on file Gender Identity Not on file Sexual Orientation Not on file documented as of this encounter Miscellaneous Notes * Telephone Encounter - Tracey Patel MD - 07/03/2020 8:49 PM CST Let her know her refill has been sent in. ALT WORKER * Telephone Encounter - Bere Martinez MA - 07/03/2020 9:42 AM CST Rosalba Jimenez No Known Allergies Requested Prescriptions Pending Prescriptions Disp Refills ??? amphetamine-dextroamphetamine (ADDERALL) 10 MG tablet 30 tablet 0 Sig: Take 1 tablet by mouth daily with lunch ??? amphetamine-dextroamphetamine XR 24hr (ADDERALL XR) 30 MG capsule 30 capsule 0 Sig: Take 1 capsule by mouth every morning Last Refill: 06/01/20 06/06/20 Last Office Visit: 05/19/2020 ALT WORKER documented in this encounter Plan of Treatment Not on file documented as of this encounter Visit Diagnoses Not on filedocumented in this encounter Care Teams Certified Executive Chef Relationship Specialty Start Date End Date Tracey Patel MD PCP - General Family Medicine 06/13/17 documented as of this encounter
--- OUTSIDE RECORDS SUMMARY | 2024-07-24 09:40 | XMS_ITS | Encounter Summary ---
Author Organization [facility] Address [address] [facility] [place] [address] Care Team Providers Care Perfumer Name Role Phone Tracey Patel MD Primary Care Provider [phone] Reason for Visit * Reason Comments Medication Check Encounter Details Date Type Department Care Team (Latest Contact Info) Description 05/19/2020 11:00 AM CDT Office Visit [facility] - Family Medicine [id number] [place] [phone] Tracey Patel MD [address] [place] [phone] Attention deficit hyperactivity disorder (ADHD), predominantly inattentive type (Primary Dx); Right lateral epicondylitis; Need for prophylactic vaccination and inoculation against influenza Social History Tobacco Use Types Packs/Day Years [...] AM CDT documented as of this encounter Last Filed Vital Signs Vital Sign Reading [...] Mass Index 25.06 05/19/2020 10:58 AM CDT documented in this encounter Progress Notes * Bere Martinez MA - 05/19/2020 1:21 PM CDT Patient received 0.5 ml of flu vaccine in the left deltoid * Tracey Patel MD - 05/19/2020 11:21 AM CDT Subjective Rosalba Jimenez is a 40 year old female here for: Follow-up of ADHD. She has been on Adderall for manyyears but feels she needs a higher dose now. 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 She thought it may be due to stress and anxiety as her tension issue started around October atthe time of the pandemic so she waited too long time before requesting a higher dose. Her anxiety level has improved significantly but she is still having difficulty focusing and staying organized. Also, she moved recently and was doing a lot of painting in the new house and now has a little bit of right elbow lateral discomfort. It has improved significantly and she is no longer painting. She just wanted to mention this. She is right-hand dominant. PHYSICAL EXAM: BP 115/69 Pulse 71 Temp 97.9 ??F (36.6 ??C) Ht 1.575 m (5' 2 ) Wt 62.1 kg (137 lb) LMP 06/23/2019 (Approximate) BMI 25.06 kg/m?? Wt Readings from Last 3 Encounters: 05/19/20 62.1 kg (137 lb) 06/28/19 56.9 kg (125 lb 6.4 oz) 02/02/19 56.1 kg (123 lb 9.6 oz) General appearance: alert, cooperative, pleasant, in no acute distress. Psych: Well dressed and groomed, good eye contact. Speech is logical and regular. Good insight and judgement. No evidence of hallucinations or delusions. Not suicidal and contracts for safety. She has only mild discomfort over the right lateral elbow but no swelling or deformity. Strength and sensation are normal. Recent Labs Component Name 06/17/17 1022 OCBLCAXT15BM 22.79* ASSESSMENT: 1. Attention deficit hyperactivity disorder (ADHD), predominantly inattentive type 2. Right lateral epicondylitis 3. Need for prophylactic vaccination and inoculation against influenza Plan Orders Placed This Encounter ??? FLU VACCINE QUAD IIV4 SPLIT PF IM ??? amphetamine-dextroamphetamine (ADDERALL) 5 MG tablet Sig: Take 1 tablet by mouth daily with lunch Dispense: 30 tablet Refill: 0 She will continue Adderall XR 30 mg every morning but will add immediate release Adderall 5 mg around lunchtime. She may increase this to 10 mg after 7 days if needed. She is advised to let me know if symptoms do not improve as expected so that we can adjust the medication further if needed. We discussed doing labs today but she would rather not unless absolutely necessary. Her last labs were 3 years ago and were normal other than low vitamin-D. I stressed the importance of taking a vitamin-D supplement of 1000 IU daily. She is advised to ice her elbow and may take an [id number]-[id number] anti- inflammatory such as Aleve oribuprofen and continue resting and let me know if symptoms do not improve over the next few weeks as expected. She voiced understanding and agreement with plan. She received flu vaccine today. documented in this encounter Plan of Treatment Not on file documented as of this encounter Visit Diagnoses Diagnosis Attention deficit hyperactivity disorder (ADHD), predominantly inattentive type- Primary Right lateral epicondylitis Lateral epicondylitis of elbow Need for prophylactic vaccination and inoculation against influenza documented in this encounter Care Teams Perfumer Relationship Specialty Start Date End Date Tracey Patel MD PCP - General Family Medicine 06/13/17 documented as of this encounter
--- OUTSIDE RECORDS SUMMARY | 2024-07-24 09:40 | XMS_ITS | Encounter Summary ---
Author Organization [facility] Address [facility] [place] [address] Care Team Providers Care Clinical Support Nurse Name Role Phone Tracey Patel MD Primary Care Provider [phone] Reason for Visit * Reason Onset Date Comments MEDICATION REFILL 01/06/2020 Encounter Details Date Type Department Care Team (Late st Contact Info) Description 01/06/2020 Refill [facility] Medical [facility] - Family Medicine [id number] [place] [phone] Tracey Patel MD [address] [place] [phone] MEDICATION REFILL Social History Tobacco Use [...] Telephone Encounter - Tracey Patel MD - 01/06/2020 8:52 AM CDT Let her know the refill has been sent in. * Telephone Encounter - Amanda Casillas - 01/06/2020 8:49 AM CDT Rosalba Jimenez No Known Allergies Requested Prescriptions Pending Prescriptions Disp Refills ??? amphetamine-dextroamphetamine XR 24hr (ADDERALL XR) 30 MG capsule 30 capsule 0 Sig: Take 1 capsule by mouth every morning Last Refill: 12/06/19 Last Office Visit: 06/28/19 documented in this encounter Plan of Treatment Not on file documented as of this encounter Visit Diagnoses Not on filedocumented in this encounter Care Teams Clinical Support Nurse Relationship Specialty Start Date End Date Tracey Patel MD PCP - General Family Medicine 06/13/17 documented as of this encounter
--- OUTSIDE RECORDS SUMMARY | 2024-07-24 09:40 | XMS_ITS | Encounter Summary ---
Author Organization [facility] Address [address] [place] [address] Care Team Providers Care Renal Case Manager Name Role Phone Tracey Patel MD Primary Care Provider [phone] Reason for Visit * Reason Onset Date Comments MEDICATION REFILL 09/29/2020 Encounter Details Date Type Department Care Team (Late st Contact Info) Description 09/29/2020 Refill [facility] - Family Medicine [id number] [place] [phone] Tracey Patel MD [address] [place] [phone] MEDICATION REFILL Social History Tobacco Use [...] encounter Miscellaneous Notes * Telephone Encounter - Arabella Davila - 09/29/2020 2:03 PM CST Patient notified of refill approval. KER STRAIGHTENER * Telephone Encounter - Tracey Patel MD - 09/29/2020 1:22 PM CST Let her know the refill has been sent in. KER STRAIGHTENER * Telephone Encounter - Anusha Hargrove - 09/29/2020 11:14 AM CST Rosalba Jimenez No Known Allergies Requested Prescriptions Pending Prescriptions Disp Refills ??? amphetamine-dextroamphetamine (ADDERALL) 10 MG tablet 30 tablet 0 Sig: Take 1 (one) tablet by mouth daily with lunch ??? amphetamine-dextroamphetamine XR 24hr (ADDERALL XR) 30 MG capsule 30 capsule 0 Sig: Take 1 (one) capsule by mouth every morning Last Refill: 08/30/20 Last Office Visit: 05/19/2020 KER STRAIGHTENER documented in this encounter Plan of Treatment Not on file documented as of this encounter Visit Diagnoses Not on filedocumented in this encounter Care Teams Renal Case Manager Relationship Specialty Start Date End Date Tracey Patel MD PCP - General Family Medicine 06/13/17 documented as of this encounter
--- OUTSIDE RECORDS SUMMARY | 2024-07-24 09:40 | XMS_ITS | Encounter Summary ---
Author Organization [facility] Address [address] [facility] [place] [address] Care Team Providers Care Irrigation Equipment Mechanic Name Role Phone Tracey Patel MD Primary Care Provider [phone] Reason for Visit * Reason Onset Date Comments MEDICATION REFILL 08/02/2020 MEDICATION REFILL 08/24/2020 Encounter Details Date Type Department Care Team (Late st Contact Info) Description 08/02/[address] [facility] Medical [facility] - Family Medicine [id number] [place] [phone] Tracey Patel MD [address] [place] [phone] MEDICATION REFILL; MEDICATION REFILL Social History Tobacco [...] Telephone Encounter - Tracey Patel MD - 08/03/2020 11:57 AM CST Let her know the refill has been sent in. BILITATION CASE COORDINATOR documented in this encounter Plan of Treatment Not on file documented as of this encounter Visit Diagnoses Not on filedocumented in this encounter Care Teams Irrigation Equipment Mechanic Relationship Specialty Start Date End Date Tracey Patel MD PCP - General Family Medicine 06/13/17 documented as of this encounter
--- OUTSIDE RECORDS SUMMARY | 2024-07-24 09:40 | XMS_ITS | Encounter Summary ---
Author Organization [facility] Address [address] [place] [address] [place] [address] Care Team Providers Care Gyroscopic Instrument Mechanic Name Role Phone Tracey Patel MD Primary Care Provider [phone] Reason for Visit * Reason Onset Date Comments MEDICATION REFILL 02/04/2020 Encounter Details Date Type Department Care Team (Late st Contact Info) Description 02/04/2020 Refill [facility] Medical [facility] - Family Medicine [id number] [place] [phone] Tracey Patel MD [address] [place] [phone] MEDICATION REFILL Social History Tobacco Use [...] Telephone Encounter - Tracey Patel MD - 02/08/2020 12:56 PM CDT Let her know the refill has been sent in. * Telephone Encounter - Danna Aguirre - 02/07/2020 9:01 AM CDT Rosalba Jimenez No Known Allergies Requested Prescriptions Pending Prescriptions Disp Refills ??? amphetamine-dextroamphetamine XR 24hr (ADDERALL XR) 30 MG capsule 30 capsule 0 Sig: Take 1 capsule by mouth every morning Last Refill: 01/06/2020 Last Office Visit: 06/28/2019 documented in this encounter Plan of Treatment Not on file documented as of this encounter Visit Diagnoses Not on filedocumented in this encounter Care Teams Gyroscopic Instrument Mechanic Relationship Specialty Start Date End Date Tracey Patel MD PCP - General Family Medicine 06/13/17 documented as of this encounter
--- OUTSIDE RECORDS SUMMARY | 2024-07-24 09:40 | XMS_ITS | Encounter Summary ---
Author Organization [facility] Address [address] [facility] [place] [address] Care Team Providers Care Cardiology Technician Name Role Phone Tracey Patel MD Primary Care Provider [phone] Encounter Details Date Type Department Care Team (Latest Contact Info) Description 05/09/2020 Travel Social History Tobacco Use Types Packs/Day [...] AM CDT documented as of this encounter Plan of Treatment Not on file documented as of this encounter Visit Diagnoses Not on filedocumented in this encounter Care Teams Cardiology Technician Relationship Specialty Start Date End Date Tracey Patel MD PCP - General Family Medicine 06/13/17 documented as of this encounter
--- OUTSIDE RECORDS SUMMARY | 2024-07-24 09:40 | XMS_ITS | Patient Health Summary ---
Author Organization [facility] [employer] Address [address] [place] [address] Care Team Providers Care Oracle Pl Sql Developer Name Role Phone Tracey Patel MD Primary Care Provider [phone] Note from [facility],non-owned Affiliates and Associated Physician Practices is amultiple site organization consisting of ambulatory clinics and hospital sitesin [place], [place], [place] and [place]. This disclosure is being madepursuant to the Care Everywhere program and may not contain all information available regarding this patient. Last updated 18.[facility] [employer] Allergies No known active allergies Medications * Be aware that medications may not be up to date on this document. Alwaysverify current medications with the patient. 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 (FLUZONE; FLULAVAL; FLUARIX; AFLURIA QUADRIVALENT; 6MO+), 0.5 ML (IIV4)(Given 05/19/2020) Social History Tobacco Use Types Packs/Day Years [...] Mass Index 25.06 05/19/2020 10:58 AM CDT Procedures * ALLERGEN FOOD VEGETABLE II PROFILE(Performed 02/02/2019) Performed for Food allergy * US BREAST LEFT LTD(Performed 07/17/2017) Performed for Left breast lump * MAMMO BILAT DIAGNOSTIC(Performed 07/17/2017) Performed for Left breast lump * PAP IG LB +HPV APTIMA REFLEX 16,18/45(Performed 07/09/2017) Performed for Well woman exam with routine gynecological exam, Screening for HPV (human papillomavirus) * US PELVIS W TRANSVAG NON OB(Performed 07/01/2017) Performed for Cyst of right ovary * VITAMIN D 25-HYDROXY(Performed 06/17/2017) Performed for Annual physical exam, Chronic bilateral low back pain without sciatica * TSH(Performed 06/17/2017) Performed for Annual physical exam * LIPID PROFILE W TCHOL/HDL(Performed 06/17/2017) Performed for Annual physical exam * COMPREHENSIVE METABOLIC PANEL(Performed 06/17/2017) Performed for Annual physical exam * CBC W AUTO DIFFERENTIAL(Performed 06/17/2017) Performed for Annual physical exam * RHEUMATOID FACTOR BLOOD QUANTITATIVE(Performed 06/17/2017) Performed for Chronic bilateral low back pain without sciatica, Polyarthralgia * C-REACTIVE PROTEIN(Performed 06/17/2017) Performed for Chronic bilateral low back pain without sciatica, Polyarthralgia * GEO BLOOD SCREEN W/REFLEX TITER(Performed 06/17/2017) Performed for Chronic bilateral low back pain without sciatica, Polyarthralgia * URINALYSIS - POINT OF CARE(Performed 06/17/2017) Performed for Annual physical exam, Chronic bilateral low back pain without sciatica Results * ALLERGEN FOOD VEGETABLE II PROFILE (02/02/2019 3:58 PM CDT) Class Description Blood [facility] INSURANCE BILL Comment: ?Levels of Specific IgE ? Class ??Description of Class ?----- ? < 0.10 ? 0 ? Negative ? 0.10 - ?0.31 ? 0/I ? Equivocal/Low ? 0.32 - ?0.55 ? I ? Low ? 0.56 - ?1.40 ? II ?Moderate ? 1.41 - ?3.90 ? III ? High ? 3.91 - ?? 19.00 ? IV ?Very High ?19.01 - ??100.00 ? V ? Very High ?>100.00 ?Very High Allergen Green Pea <0.10 Class 0 kU/L [facility] INSURANCE BILL Allergen Soybean <0.10 Class 0 kU/L [facility] INSURANCE BILL Allergen Tomato <0.10 Class 0 kU/L [facility] INSURANCE BILL Allergen Carrot <0.10 Class 0 kU/L [facility] INSURANCE BILL Allergen Potato White <0.10 Class 0 kU/L [facility] INSURANCE BILL Allergen Green Cullen <0.10 Class 0 kU/L [facility] INSURANCE BILL Allergen Onion <0.10 Class 0 kU/L [facility] INSURANCE BILL Allergen Kidney Cullen <0.10 Class 0 kU/L [facility] INSURANCE BILL Allergen Pumpkin <0.10 Class 0 kU/L [facility] INSURANCE BILL Blood BLOOD SPECIMEN / Unknown 02/02/2019 3:58 PM CDT 02/02/2019 Narrative [facility] INSURANCE BILL - 02/05/2019 1:06 PM CDT Test(s) [id number] Green Cullen; [id number] Kidney Cullen; [id number] Pumpkin were developed and had performance characteristics determined by [facility]. These tests have not been cleared or approved by the U.S. Food and Drug Administration. The FDA has determined that such clearance or approval is not necessary. These tests are used for clinical purposes. These should not be regarded as investigational or for research. Resulting Agency Comment Lab Testing performed at: [facility] [address] ??[facility] [phone] Tracey Patel MD LAB - SEROLOGY ORDER CARLOS ENRIQUE [facility] INSURANCE BILL [address] [place] [address] * US BREAST LEFT LTD (07/17/2017 10:29 AM CEMETERY LABORER) Anatomical Region Laterality Modality Breast Left Ultrasound 07/17/2017 10:5 2 AM CEMETERY LABORER Narrative 07/17/2017 10:54 AM CEMETERY LABORER Left breast ultrasound Indication for examination: Palpable soft tissue density superior left breast above the nipple reported by patient's physician. Ultrasound examination of the left breast is performed with transverse and longitudinal images with attention to the 12:00 superior aspect of the left breast as directed by the patient. Comparison is made with screening mammogram. There are 2 adjacent small, sonographically simple cyst at the 12:00 superior left breast approximately 7 cm from the nipple. These are in the area of clinical interest as described by the patient. These are not currently palpable to my physical examination. These are therefore of questionable clinical significance. No other cystic or solid soft tissue abnormality is identified in this area. There is relatively prominent fibroglandular parenchymal tissue in this area, extending toward the nipple. No suspicious appearing mass identified sonographically. Results were reviewed in detail with the patient at the time of examination. It should be noted that additional diagnostic measures, including biopsy, should not be delayed if there are clinically suspicious findings. ASSESSMENT: Benign finding, BI-RADS 2 Recommendation: Screening mammogram age 40 Manage patient on clinical basis Joyce Saldivar MD US ORDERABLES * MAMMO DIAG DIRECT DIGITAL IMAGE BILA [id number] (07/17/2017 10:10 AM CEMETERY LABORER) Anatomical Region Laterality Modality Bilateral Mammography 07/17/2017 11:1 7 AM CEMETERY LABORER Narrative 07/17/2017 11:24 AM CEMETERY LABORER DIGITAL BILATERAL DIAGNOSTIC MAMMOGRAMS WITH CAD CORRELATION [...] if suspicious findings are present clinically. An [employer] Certified Facility. [facility] Breast Centers utilize [employer] as a reminder system to notify patients of their next recommended mammogram. Edited by Jennifer Stockton on 07/17/2017 11:23 AM Joyce Saldivar MD MAMMO ORDERABLES * (ABNORMAL) PAP IG LB +HPV APTIMA REFLEX 16,18/45 (07/09/2017 3:07 PM CEMETERY LABORER) Diagnosis (A) [facility] ACCOUNT BILL Comment: EPITHELIAL [...] N63.20 Performed by [facility] ACCOUNT BILL Comment:Yasemin Cesar, Cytote chnologist (ASCP) Electronically Signed by [facility] [...] UTERINE CERVIX / Unknown 07/09/2017 3:07 PM CEMETERY LABORER 07/09/2017 Narrative [facility] ACCOUNT BILL - 07/15/2017 5:10 PM CEMETERY LABORER Source.............Cervix LMP / Prev Treat...HQG=[id number] No. of containers..01 ThinPrep Vial Resulting Agency Comment [facility] [address] [place] ??Jason GONZALEZ [phone] Joyce Saldivar MD LAB - PATHOLOGY/CYTO LOGY ORDERABLES [facility] ACCOUNT [place] [address] [place] [address] * US PELVIS WITH TRANSVAG NON OB (07/01/2017 10:57 AM CEMETERY LABORER) Anatomical Region Laterality Modality Pelvis Ultrasound 07/01/2017 11:0 6 AM CEMETERY LABORER Impressions 07/01/2017 11:12 AM CEMETERY LABORER RIGHT FOLLICLE CYSTS, OTHERWISE UNREMARKABLE. Edited by Jennifer Stockton on 07/01/2017 11:12 AM Narrative 07/01/2017 11:12 AM CEMETERY LABORER ULTRASOUND PELVIS TRANSABDOMINAL ULTRASOUND PELVIS TRANSVAGINAL ULTRASOUND DOPPLER PELVIC OVARIES WITH SPECTRAL ANALYSIS INDICATION: Pelvic pain. FINDINGS: Transabdominal transvaginal ultrasound shows the uterus to measure 8.65 x 3.50 x 4.96 cm. The endometrial canal measures 0.72 cm. Right ovary measures 3.38 x 2.17 x 1.99 cm and left ovary measures 3.18 x 2.09 x 1.77 cm. In the right ovary, follicle cysts are present. There is no free fluid. There is normal color flow and Doppler waveform to both ovaries. Procedure Note Narinder Freire MD - 07/01/2017 ULTRASOUND PELVIS TRANSABDOMINAL ULTRASOUND PELVIS TRANSVAGINAL ULTRASOUND DOPPLER PELVIC OVARIES WITH SPECTRAL ANALYSIS INDICATION: Pelvic pain. FINDINGS: Transabdominal transvaginal ultrasound shows the uterus to measure 8.65 x 3.50 x 4.96 cm. The endometrial canal measures 0.72 cm. Right ovary measures 3.38 x 2.17 x 1.99 cm and left ovary measures 3.18 x 2.09 x 1.77 cm. In the right ovary, follicle cysts are present. There is no free fluid. There is normal color flow and Doppler waveform to both ovaries. IMPRESSION RIGHT FOLLICLE CYSTS, OTHERWISE UNREMARKABLE. Edited by Jennifer Stockton on 07/01/2017 11:12 AM Tracey Patel MD US ORDERABLES * LIPID PROFILE W TCHOL/HDL (06/17/2017 10:22 AM CEMETERY LABORER) Cholesterol 185 <200 mg/dL [facility] ACCOUNT BILL Triglycerides 39 <150 mg/dL [facility] ACCOUNT BILL HDL Cholesterol 83 >40 mg/dL [facility] ACCOUNT BILL VLDL Calculated 8 <=30 mg/dL [facility] ACCOUNT BILL LDL Calculated 94 <130 mg/dL [facility] ACCOUNT BILL Comment:LDL/HDL RATIO BLOOD ([facility]) 1.1 <5.0 Cholesterol/HDL Ratio 2.2 <4.5 [facility] ACCOUNT BILL Comment:FASTING Blood BLOOD SPECIMEN / Unknown 06/17/2017 10:22 AM CEMETERY LABORER 06/17/2017 Narrative Resulting Agency Comment [facility] [id number] ??[facility] [phone] Tracey Patel MD LAB - CHEMISTRY LEXX RAMIREZ [facility] ACCOUNT BILL [address] [place] [address] * (ABNORMAL) VITAMIN D 25-HYDROXY (06/17/2017 10:22 AM CEMETERY LABORER) Pathologist [facility] Vitamin D, 25 Hydroxy 22.79(L) 30 - 100 ng/mL [facility] ACCOUNT BILL Comment: Vitamin D Status: ?Deficiency ? <20 ? ng/mL ?Insufficiency ?? 20-30 ??ng/mL ?Sufficiency ? 30-100 ng/mL ?Toxicity ? >100 ?ng/mL FASTING Blood BLOOD SPECIMEN / Unknown 06/17/2017 10:22 AM CEMETERY LABORER 06/17/2017 Narrative Resulting Agency Comment [facility] [address] [place] [address] ??[facility] [phone] Tracey Patel MD LAB - CHEMISTRY LEXX RAMIREZ [facility] ACCOUNT BILL [address] [place] [address] * (ABNORMAL) CBC W AUTO DIFFERENTIAL (06/17/2017 10:22 AM CEMETERY LABORER) WBC 4.1(L) 4.4 - 10.7 x10E9/L [facility] ACCOUNT BILL RBC 4.69 3.80 - 5.20 x10E12/L [facility] ACCOUNT BILL Hemoglobin 12.0 12.0 - 15.6 gm/dL [facility] ACCOUNT BILL Hematocrit 38.8 35.9 - 45.5 % [facility] ACCOUNT BILL MCV 82.7 80.7 - 98.3 fL [facility] ACCOUNT BILL MCH 25.6(L) 26.7 - 34.0 pg [facility] ACCOUNT BILL MCHC 30.9 30.8 - 35.9 gm/dL [facility] ACCOUNT BILL RDW 15.6(H) 12.1 - 14.9 % [facility] ACCOUNT BILL Platelet Count 213 153 - 416 x10E9/L [facility] ACCOUNT BILL Comment:MPV FL BLOOD (SSM) 1 2.4 fl 9.4-12.9 Granulocytes % 60.9 44.0 - 73.0 % [facility] ACCOUNT BILL Lymphocytes % 26.9 20.0 - 43.0 % [facility] ACCOUNT BILL Monocytes % 9.5 5.0 - 13.0 % [facility] ACCOUNT BILL Eosinophils % 1.2 0.0 - 6.0 % [facility] ACCOUNT BILL Basophils % 1.0 0.0 - 2.0 % [facility] ACCOUNT BILL Granulocytes Absolute 2.51 2.01 - 7.14 x10E9/L [facility] ACCOUNT BILL Lymphocytes Absolute 1.11 1.07 - 3.94 x10E9/L [facility] ACCOUNT BILL Monocytes Absolute 0.39 0.26 - 1.07 x10E9/L [facility] ACCOUNT BILL Eosinophils Absolute 0.05 0 - 0.47 x10E9/L [facility] ACCOUNT BILL Basophils Absolute 0.04 0 - 0.08 x10E9/L [facility] ACCOUNT BILL Immature Granulocytes 0.5 0 - 1 % [facility] ACCOUNT BILL Immature Granulocytes Absolute 0.02 0.00 - 0.06 x10E9/L [facility] ACCOUNT BILL nRBC 0 /100 WBC [facility] ACCOUNT BILL Comment:FASTING Blood BLOOD SPECIMEN / Unknown 06/17/2017 10:22 AM CEMETERY LABORER 06/17/2017 Narrative Resulting Agency Comment [facility] [id number] ??[place] [phone] Tracey Patel MD LAB - HEMATOLOGY ORD ERABLES [facility] ACCOUNT BILL [address] [place] [address] * (ABNORMAL) COMPREHENSIVE METABOLIC PANEL (06/17/2017 10:22 AM CEMETERY LABORER) Glucose 79 74 - 106 mg/dL [facility] [...] BLOOD SPECIMEN / Unknown 06/17/2017 10:22 AM CEMETERY LABORER 06/17/2017 Narrative Resulting Agency Comment [facility] [phone] ??[place] [phone] Tracey Patel MD LAB - CHEMISTRY ORDE RABLES Performing Organization Address City/[facility]/ZIP Co de Phone Number [facility] ACCOUNT BILL [address] [place] [address] * TSH (06/17/2017 10:22 AM CEMETERY LABORER) TSH 2.85 0.358 - 3.740 uIU/mL [facility] ACCOUNT BILL Comment:FASTING Blood BLOOD SPECIMEN / Unknown 06/17/2017 10:22 AM CEMETERY LABORER 06/17/2017 Narrative Resulting Agency Comment [facility] [address] ??[facility] [phone] Tracey Patel MD LAB - CHEMISTRY LEXX RAMIREZ Performing Organization Address [facility] Co de Phone Number [facility] ACCOUNT BILL [address] [place] [address] * RHEUMATOID FACTOR BLOOD QUANTITATIVE (06/17/2017 10:20 AM CEMETERY LABORER) Rheumatoid Factor <10 <15 IU/mL [facility] ACCOUNT BILL Comment:FASTING Blood BLOOD SPECIMEN / Unknown 06/17/2017 10:20 AM CEMETERY LABORER 06/17/2017 Narrative Resulting Agency Comment [address] ??[facility] [phone] Tracey Patel MD LAB - CHEMISTRY LEXX RAMIREZ Performing Organization Address [facility] Co de Phone Number [facility] ACCOUNT BILL [address] [place] [address] * C-REACTIVE PROTEIN (06/17/2017 10:20 AM CEMETERY LABORER) C-Reactive Protein <0.29 <0.30 mg/dL [facility] ACCOUNT BILL Comment:FASTING Blood BLOOD SPECIMEN / Unknown 06/17/2017 10:20 AM CEMETERY LABORER 06/17/2017 Narrative Resulting Agency Comment [facility] [address] ??[facility] [phone] Tracey Patel MD LAB - CHEMISTRY LEXX RAMIREZ [facility] ACCOUNT BILL [address] [place] [address] * GEO BLOOD SCREEN W/REFLEX TITER (06/17/2017 10:20 AM CEMETERY LABORER) GEO Negative Negative [facility] ACCOUNT BILL Comment:FASTING Blood BLOOD SPECIMEN / Unknown 06/17/2017 10:20 AM CEMETERY LABORER 06/17/2017 Narrative Resulting Agency Comment [facility] [address] [place] [address] ??[facility] [phone] Tracey Patel MD LAB - CHEMISTRY LEXX RAMIREZ [facility] ACCOUNT BILL [address] [place] [address] * URINALYSIS - POINT OF CARE (06/17/2017) Clarity UA POCT clear Color UA POCT yellow Leukocyte UA negative Negative Nitrite UA POCT negative Negative Urobilinogen UA 0.2 0.1 - 1.0 Protein UA POCT negative Negative pH UA 6.0 5.0 - 8.0 pH units Blood UA negative Negative Specific [place] UA POCT 1.010 1.002 - 1.030 Ketone UA negative Negative Bilirubin UA POCT negative Negative Glucose UA negative Negative Urine URINE / Unknown 06/17/2017 Tracey Patel MD LAB - POINT OF CARE ORDERABLES Care Teams Oracle Pl Sql Developer Relationship Specialty Start Date End Date Tracey Patel MD PCP - General Family Medicine 06/13/17
--- OUTSIDE RECORDS SUMMARY | 2024-07-24 09:40 | XMS_ITS | Encounter Summary ---
Author Organization [facility] Address [facility] [place] [address] Care Team Providers Care Cut Roll Machine Offbearer Name Role Phone Tracey Patel MD Primary Care Provider Reason for Visit * Reason Onset Date Comments MEDICATION REFILL 04/06/2020 Encounter Details Date Type Department Care Team (Late st Contact Info) Description 04/06/2020 Refill [facility] Medical [facility] - Family Medicine [id number] [place] [phone] Tracey Patel MD [address] [place] [phone] MEDICATION REFILL Social History Tobacco Use [...] Telephone Encounter - Tracey Patel MD - 04/06/2020 1:16 PM CDT Let her know her refill has been sent in. * Telephone Encounter - Amanda Casillas - 04/06/2020 8:39 AM CDT Rosalba Jiemnez No Known Allergies Requested Prescriptions Pending Prescriptions Disp Refills ??? amphetamine-dextroamphetamine XR 24hr (ADDERALL XR) 30 MG capsule 30 capsule 0 Sig: Take 1 capsule by mouth every morning Last Refill: 03/07/20 Last Office Visit: 06/28/19 documented in this encounter Plan of Treatment Not on file documented as of this encounter Visit Diagnoses Not on filedocumented in this encounter Care Teams Cut Roll Machine Offbearer Relationship Specialty Start Date End Date Tracey Patel MD PCP - General Family Medicine 06/13/17 documented as of this encounter
--- OUTSIDE RECORDS SUMMARY | 2024-07-24 09:40 | XMS_ITS | Encounter Summary ---
Author Organization [facility] Address [address] [facility] [place] [address] Care Team Providers Care Cream Hauler Name Role Phone Tracey Patel MD Primary Care Provider [phone] Reason for Visit * Reason Onset Date Comments MEDICATION REFILL 05/03/2020 Encounter Details Date Type Department Care Team (Late st Contact Info) Description 05/03/2020 Refill [facility] Medical [facility] - Family Medicine [id number] [place] [phone] Tracey Patel MD [address] [place] [phone] MEDICATION REFILL Social History Tobacco Use Types [...] encounter Miscellaneous Notes * Telephone Encounter - Anusha Hargrove - 05/09/2020 4:13 PM CDT Patient notified and verbalized understanding. * Telephone Encounter - Tracey Patel MD - 05/09/2020 2:32 PM CDT Sure. Let her know the refill has been sent in for her usual dose. * Telephone Encounter - Cindy Louis - 05/09/2020 11:23 AM CDT Made her appt for 05/19 but she wants to know if she can just get there the refill till her appt * Telephone Encounter - Tracey Patel MD - 05/04/2020 1:13 PM CDT In her [employer] message, she requested a dose increase. I need to see her before we can do this. We can do a video visit if she would like. * Telephone Encounter - Amanda Casillas - 05/03/2020 1:05 PM CDT Rosalba Jimenez No Known Allergies Requested Prescriptions Pending Prescriptions Disp Refills ??? amphetamine-dextroamphetamine XR 24hr (ADDERALL XR) 30 MG capsule 30 capsule 0 Sig: Take 1 capsule by mouth every morning Last Refill: 04/06/20 Last Office Visit: 06/28/19 documented in this encounter Plan of Treatment Not on file documented as of this encounter Visit Diagnoses Not on filedocumented in this encounter Care Teams Cream Hauler Relationship Specialty Start Date End Date Tracey Patel MD PCP - General Family Medicine 06/13/17 documented as of this encounter
--- OUTSIDE RECORDS SUMMARY | 2024-07-24 09:40 | XMS_ITS | Encounter Summary ---
Author Organization [facility] Address [address] [facility] [place] [address] Care Team Providers Care Patient Safety Officer Name Role Phone Tracey Patel MD Primary Care Provider [phone] Reason for Visit * Reason Onset Date Comments MEDICATION REFILL 08/30/2020 Encounter Details Date Type Department Care Team (Late st Contact Info) Description 08/30/2020 Refill [facility] Medical [facility] - Family Medicine [id number] [place] [phone] Tracey Patel MD [address] [place] [phone] MEDICATION REFILL Social History Tobacco Use [...] Telephone Encounter - Tracey Patel MD - 08/30/2020 2:29 PM CST Let her know the refill has been sent in. RAIL HELPER * Telephone Encounter - Silva Khoury - 08/30/2020 2:00 PM CST Rosalba Jimenez No Known Allergies Requested Prescriptions Pending Prescriptions Disp Refills ??? amphetamine-dextroamphetamine (ADDERALL) 10 MG tablet 30 tablet 0 Sig: Take 1 (one) tablet by mouth daily with lunch ??? amphetamine-dextroamphetamine XR 24hr (ADDERALL XR) 30 MG capsule 30 capsule 0 Sig: Take 1 (one) capsule by mouth every morning Last Refill: 08/03/20 Last Office Visit: 05/19/2020 RAIL HELPER documented in this encounter Plan of Treatment Not on file documented as of this encounter Visit Diagnoses Not on filedocumented in this encounter Care Teams Patient Safety Officer Relationship Specialty Start Date End Date Tracey Patel MD PCP - General Family Medicine 06/13/17 documented as of this encounter
--- OUTSIDE RECORDS SUMMARY | 2024-07-24 09:40 | XMS_ITS | Encounter Summary ---
Author Organization [facility] Address [address] [facility] [place] [address] Care Team Providers Care Data Services Developer Name Role Phone Tracey Patel MD Primary Care Provider [phone] Reason for Visit * Reason Onset Date Comments MEDICATION REFILL 06/06/2020 Encounter Details Date Type Department Care Team (Late st Contact Info) Description 06/06/2020 Refill [facility] Medical [facility] - Family Medicine [id number] [place] [phone] Tracey Patel MD [address] [place] [place] [phone] MEDICATION REFILL Social History Tobacco Use Types [...] Telephone Encounter - Tracey Patel MD - 06/06/2020 3:02 PM CST Let her know the refill has been sent in. CTOR OF LITIGATION * Telephone Encounter - Tracey Patel MD - 06/06/2020 12:38 PM CST There is no pharmacy selected. CTOR OF LITIGATION * Telephone Encounter - Anusha Hargrove - 06/06/2020 9:36 AM CST Rosalba Jimenez No Known Allergies Requested Prescriptions Pending Prescriptions Disp Refills ??? amphetamine-dextroamphetamine XR 24hr (ADDERALL XR) 30 MG capsule 30 capsule 0 Sig: Take 1 capsule by mouth every morning Last Refill: 06/01/20 Last Office Visit: 05/19/2020 CTOR OF LITIGATION documented in this encounter Plan of Treatment Not on file documented as of this encounter Visit Diagnoses Not on filedocumented in this encounter Care Teams Data Services Developer Relationship Specialty Start Date End Date Tracey Patel MD PCP - General Family Medicine 06/13/17 documented as of this encounter
--- OUTSIDE RECORDS SUMMARY | 2024-07-24 09:40 | XMS_ITS | Encounter Summary ---
Author Organization [facility] Address [address] [place] [address] Care Team Providers Care Sweet Potato Disintegrator Name Role Phone Tracey Patel MD Primary Care Provider [phone] Reason for Visit * Reason Onset Date Comments Appointment 02/22/2021 Encounter Details Date Type Department Care Team (Late st Contact Info) Description 02/22/2021 Telephone [facility] Medical [facility] - Family Medicine [id number] [place] [phone] Rachel Gutierrez MD [address] [facility] [address] [place] [address] Appointment Social History Tobacco Use Types Packs/Day Years [...] PM CDT documented as of this encounter Miscellaneous Notes * Telephone Encounter - Silva Haider MA - 02/22/2021 2:25 PM CDT Patient scheduled. * Telephone Encounter - Janna Gilmore - 02/22/2021 2:13 PM CDT Who is calling? self If other than self is caller listed on the HIPAA? N/A If caller is anyone other than listed above, where are they calling from? N/A What is the reason for call? Patient calling to schedule new patient appointment with Dr. Rachel Gutierrez. Expected Response from the Clinic? ( ex. Call back, etc..) Please contact patient to schedule appointment. documented in this encounter Plan of Treatment Not on file documented as of this encounter Visit Diagnoses Not on filedocumented in this encounter Care Teams Sweet Potato Disintegrator Relationship Specialty Start Date End Date Tracey Patel MD PCP - General Family Medicine 06/13/17 documented as of this encounter
--- OUTSIDE RECORDS SUMMARY | 2024-07-24 09:40 | XMS_ITS | Encounter Summary ---
Author Organization [facility] Address [address] [place] [address] Care Team Providers Care Side Gluer Name Role Phone Tracey Patel MD Primary Care Provider [phone] Reason for Visit * Reason Onset Date Comments MEDICATION REFILL 03/06/2020 Encounter Details Date Type Department Care Team (Late st Contact Info) Description 03/06/2020 Refill [facility] Medical [facility] - Family Medicine [id number] [place] [phone] Tracey Patel MD [address] [place] [phone] MEDICATION REFILL Social History Tobacco Use [...] Telephone Encounter - Tracey Patel MD - 03/07/2020 9:25 AM CDT Let her know the refill has been sent in. * Telephone Encounter - Janae Rodriguez - 03/07/2020 8:38 AM CDT Rosalba Jimenez No Known Allergies Requested Prescriptions Pending Prescriptions Disp Refills ??? amphetamine-dextroamphetamine XR 24hr (ADDERALL XR) 30 MG capsule 30 capsule 0 Sig: Take 1 capsule by mouth every morning Last Refill: 02/08/2020 Last Office Visit: 06/28/2019 documented in this encounter Plan of Treatment Not on file documented as of this encounter Visit Diagnoses Not on filedocumented in this encounter Care Teams Side Gluer Relationship Specialty Start Date End Date Tracey Patel MD PCP - General Family Medicine 06/13/17 documented as of this encounter
--- OUTSIDE RECORDS SUMMARY | 2024-07-24 09:40 | XMS_ITS | Clinical Summary ---
Author Organization [facility] Address [address] [place] [address] Care Team Providers Care Head Loft Worker Name Role Phone Tracey Patel MD Primary Care Provider [phone] Source Comments [facility],non-owned Affiliates and Associated Physician Practices is amultiple site organization consisting of ambulatory clinics and hospital sitesin [place], [place], [place] and [place]. This disclosure is being madepursuant to the Care Everywhere program and may not contain all information available regarding this patient. Last updated 18.[employer] Allergies No known active allergies Medications * [...] AFLURIA QUADRIVALENT; 6MO+), 0.5 ML (IIV4) 05/19/2020 Family History Medical History Relation Name Comments Cancer - Prostate Father Cancer - Skin, Melanoma Mother Cancer - Skin, Non Melanoma Mother Other Mother had hysterectom y due to menorrhagia Other Sister endometriosis Relation Name Status Comments Father Alive Mother Alive Sister Alive Social History Tobacco Use Types Packs/Day Years [...] 05/19/2020 10:58 AM CDT Plan of Treatment Health Maintenance Due Date Last Done Comments HIV SCREENING 1995 HEPATITIS C SCREENING 03/25/1998 DTAP/TDAP/TD VACCINES (1 - Tdap) 1999 HEPATITIS B VACCINE (1 of 3 - 19+ 3-dose series) 1999 MAMMOGRAM 07/17/2019 07/17/2017 SCREENING FOR DIABETES 06/17/2020 06/17/2017 LIPID TESTING 06/17/2022 06/17/2017 DEPRESSION SCREENING 08/04/2023 PAP with HPV 10/08/2023 10/07/2018 (Done Outside Per Report), 07/09/2017 COVID-19 VACCINE ( - 2023-2 5 season) 2024 INFLUENZA VACCINE (#1) 2024 05/19/2020 ZOSTER VACCINE (1 of 2) 2030 HIB VACCINE Aged Out No longer eligi ble based on patient's age to complete this topic HPV VACCINE Aged Out No longer eligi ble based on patient's age to complete this topic MENINGOCOCCAL VACCINE Aged Out No nolan logan eligible based on patient's age to complete this topic PNEUMOCOCCAL VACCINE Aged Out No long er eligible based on patient's age to complete this topic Procedures Procedure Name Priority Date/Time Associated Diagnosis Comments MAMMO BILAT DIAGNOSTIC Routine 07/17/2017 10:10 AM MACHINIST HELPER Left breast lump PAP IG LB +HPV APTIMA REFLEX 16,18/45 Routine 07/09/2017 3:07 PM MACHINIST HELPER Well woman exam with routine gynecological exam Screening for HPV (human papillomavirus) COMPREHENSIVE METABOLIC PANEL Routine 06/17/2017 10:22 AM MACHINIST HELPER Annual physical exam LIPID PROFILE W TCHOL/HDL Routine 06/17/2017 10:22 AM MACHINIST HELPER Annual physical exam from Last 3 Months or Most Recently Relevant to Health Maintenance Results * MAMMO DIAG DIRECT DIGITAL IMAGE BILA [id number] (07/17/2017 10:10 AM MACHINIST HELPER) Anatomical Region Laterality Modality Bilateral Mammography 07/17/2017 11:1 7 AM MACHINIST HELPER Narrative 07/17/2017 11:24 AM MACHINIST HELPER DIGITAL BILATERAL DIAGNOSTIC MAMMOGRAMS WITH CAD CORRELATION [...] if suspicious findings are present clinically. An [employer] Certified [employer]. [facility] utilize [employer] as a reminder system to notify patients of their next recommended mammogram. Edited by Jennifer Stockton on 07/17/2017 11:23 AM Joyce Saldivar MD MAMMO ORDERABLES * (ABNORMAL) PAP IG LB +HPV APTIMA REFLEX 16,18/45 (07/09/2017 3:07 PM MACHINIST HELPER) Diagnosis (A) [facility] ACCOUNT BILL Comment: EPITHELIAL [...] UTERINE CERVIX / Unknown 07/09/2017 3:07 PM MACHINIST HELPER 07/09/2017 Narrative [facility] ACCOUNT BILL - 07/15/2017 5:10 PM MACHINIST HELPER Source.............Cervix LMP / Prev Treat...[id number]=[id number] No. of containers..01 ThinPrep Vial Resulting Agency Comment [facility] Jason Marcio [facility] ??Jason GONZALEZ [phone] Joyce Saldivar MD LAB - PATHOLOGY/CYTO LOGY ORDERABLES [facility] ACCOUNT BILL [address] [place] [address] * LIPID PROFILE W TCHOL/HDL (06/17/2017 10:22 AM MACHINIST HELPER) Cholesterol 185 <200 mg/dL [facility] ACCOUNT BILL [...] BLOOD SPECIMEN / Unknown 06/17/2017 10:22 AM MACHINIST HELPER 06/17/2017 Narrative Resulting Agency Comment [facility] [place] [address] ??[place] [phone] Tracey Patel MD LAB - CHEMISTRY LEXX RAMIREZ Performing Organization Address [facility] Co de Phone Number [facility] ACCOUNT BILL [address] [place] [address] * (ABNORMAL) COMPREHENSIVE METABOLIC PANEL (06/17/2017 10:22 AM MACHINIST HELPER) Glucose 79 74 - 106 mg/dL [facility] [...] BLOOD SPECIMEN / Unknown 06/17/2017 10:22 AM MACHINIST HELPER 06/17/2017 Narrative Resulting Agency Comment [facility] [address] ??[facility] [phone] Tracey Patel MD LAB - [facility]Y [facility] Organization Address City/State/ZIP Co de Phone Number [facility] ACCOUNT BILL [address] [place] [address] from Last 3 Months or Most Recently Relevant to Health Maintenance Care Teams Head Loft Worker Relationship Specialty Start Date End Date Tracey Patel MD PCP - General Family Medicine 06/13/17
--- OUTSIDE RECORDS SUMMARY | 2024-07-24 09:40 | XMS_ITS | Encounter Summary ---
Author Organization [facility] Address [address] [facility] [place] [address] Care Team Providers Care Cadet Deck Name Role Phone Tracey Patel MD Primary Care Provider [phone] Reason for Visit * Reason Onset Date Comments MEDICATION REFILL 02/22/2021 MEDICATION REFILL 03/05/2021 Encounter Details Date Type Department Care Team (Late st Contact Info) Description 02/22/2021 Refill [facility] Medical [facility] - Family Medicine [address] [place] [phone] Tracey Patel MD [address] [place] [phone] MEDICATION REFILL; MEDICATION REFILL Social History Tobacco [...] encounter Miscellaneous Notes * Telephone Encounter - Luiz De Jesus MD - 03/01/2021 9:54 AM CDT I refilled both for 30 days as previous. I will not fill these medications again, if refills are needed they should be cleared through Dr Gutierrez/Syd. KT * Telephone Encounter - Danna Aguirre - 02/26/2021 9:57 AM CDT Patient said she was trying to find a new pcp. She is scheduled to see Syd on 04/05/2021. Patient said she will also be starting a new job and will need her medication to focus. * Telephone Encounter - Luiz De Jesus MD - 02/22/2021 4:05 PM CDT These have not been filled since October. Ask why he needs a refill at this time, and can the refill wait until he sees a new provider. KT * Telephone Encounter - Kerline Clark - 02/22/2021 2:43 PM CDT Rosalba Jimenez No Known Allergies Requested Prescriptions Pending Prescriptions Disp Refills ??? amphetamine-dextroamphetamine (ADDERALL) 10 MG tablet 30 tablet 0 Sig: Take 1 (one) tablet by mouth daily with lunch ??? amphetamine-dextroamphetamine XR 24hr (ADDERALL XR) 30 MG capsule 30 capsule 0 Sig: Take 1 (one) capsule by mouth every morning Last Refill: 10/31/2020 Last Office Visit: 05/19/2020 * Telephone Encounter - Janna Gilmore - 02/22/2021 2:17 PM CDT Orsalbaverenice Jimenez is in need of Her Requested Prescriptions Pending Prescriptions Disp Refills ??? amphetamine-dextroamphetamine (ADDERALL) 10 MG tablet 30 tablet 0 Sig: Take 1 (one) tablet by mouth daily with lunch ??? amphetamine-dextroamphetamine XR 24hr (ADDERALL XR) 30 MG capsule 30 capsule 0 Sig: Take 1 (one) capsule by mouth every morning Person calling for the refill: Self Last office visit 05/19/20 Next Appointment scheduled: Visit date not found Last Refill for this medication 10/31/20 Does patient have any new allergies since last office visit? No Was the pharmacy verified? Yes If this is a controlled substance was the Last 4 of SSN verified? YES PATIENT IS OUT OF MEDICATION. documented in this encounter Plan of Treatment Not on file documented as of this encounter Visit Diagnoses Not on filedocumented in this encounter Care Teams Cadet Deck Relationship Specialty Start Date End Date Tracey Patel MD PCP - General Family Medicine 06/13/17 documented as of this encounter
--- OUTSIDE RECORDS SUMMARY | 2024-07-24 09:40 | XMS_ITS | Encounter Summary ---
Author Organization [facility] Address [address] [facility] [place] [address] Care Team Providers Care Promotions Director Name Role Phone Tracey Patel MD Primary Care Provider [phone] Reason for Visit * Reason Onset Date Comments MEDICATION REFILL 02/08/2020 Encounter Details Date Type Department Care Team (Late st Contact Info) Description 02/08/2020 Refill [facility] Medical [facility] - Family Medicine [id number] [place] [phone] Tracey Patel MD [address] [place] [phone] MEDICATION REFILL Social History Tobacco Use [...] Patel MD - 02/08/2020 12:56 PM CDT This was already refilled in a different refill encounter. * Telephone Encounter - Amanda Casillas - 02/08/2020 9:09 AM CDT Rosalba Jimenez No Known Allergies Requested Prescriptions Pending Prescriptions Disp Refills ??? amphetamine-dextroamphetamine XR 24hr (ADDERALL XR) 30 MG capsule 30 capsule 0 Sig: Take 1 capsule by mouth every morning Last Refill: 01/06/20 Last Office Visit: 06/28/19 documented in this encounter Plan of Treatment Not on file documented as of this encounter Visit Diagnoses Not on filedocumented in this encounter Care Teams Promotions Director Relationship Specialty Start Date End Date Tracey Patel MD PCP - General Family Medicine 06/13/17 documented as of this encounter
--- OUTSIDE RECORDS SUMMARY | 2024-07-24 09:40 | XMS_ITS | Encounter Summary ---
Author Organization [facility] Address [address] [place] [address] Care Team Providers Care Special Diet Cook Name Role Phone Tracey Patel MD Primary Care Provider Reason for Visit * Reason Onset Date Comments MEDICATION REFILL 10/31/2020 Encounter Details Date Type Department Care Team (Late st Contact Info) Description 10/31/2020 Refill [facility] Medical [facility] - Family Medicine [id number] [place] [phone] Tracey Patel MD [address] [place] [phone] MEDICATION REFILL Social History Tobacco Use Types [...] encounter Miscellaneous Notes * Telephone Encounter - Amanda Casillas - 10/31/2020 10:49 AM CDT Pt notified * Telephone Encounter - Tracey Patel MD - 10/31/2020 10:48 AM CDT Let her know the refill has been sent in. * Telephone Encounter - Amanda Casillas - 10/31/2020 10:29 AM CDT Rosalba Jimenez No Known Allergies Requested Prescriptions Pending Prescriptions Disp Refills ??? amphetamine-dextroamphetamine (ADDERALL) 10 MG tablet 30 tablet 0 Sig: Take 1 (one) tablet by mouth daily with lunch ??? amphetamine-dextroamphetamine XR 24hr (ADDERALL XR) 30 MG capsule 30 capsule 0 Sig: Take 1 (one) capsule by mouth every morning Last Refill: 09/29/20 Last Office Visit: 05/19/2020 documented in this encounter Plan of Treatment Not on file documented as of this encounter Visit Diagnoses Not on filedocumented in this encounter Care Teams Special Diet Cook Relationship Specialty Start Date End Date Tracey Patel MD PCP - General Family Medicine 06/13/17 documented as of this encounter
--- OUTSIDE RECORDS SUMMARY | 2024-07-24 09:41 | XMS_ITS | Encounter Summary ---
Author Organization [facility] Address [address] [place] [address] [place] [address] Care Team Providers Care Gate Watch Name Role Phone Tracey Patel MD Primary Care Provider [phone] Reason for Visit * Reason Onset Date Comments MEDICATION REFILL 10/12/2019 Encounter Details Date Type Department Care Team (Late st Contact Info) Description 10/12/2019 Refill [facility] - Family Medicine [address] [place] [phone] Luiz De Jesus MD [address] [facility] [address] [place] [address] MEDICATION REFILL Social History Tobacco Use Types [...] * Telephone Encounter - Amanda Casillas - 10/12/2019 9:07 AM CDT Rosalba Jimenez No Known Allergies Requested Prescriptions Pending Prescriptions Disp Refills ??? amphetamine-dextroamphetamine XR 24hr (ADDERALL XR) 30 MG capsule 30 capsule 0 Sig: Take 1 capsule by mouth every morning Last Refill: 09/13/19 Last Office Visit: 06/28/19 documented in this encounter Plan of Treatment Not on file documented as of this encounter Visit Diagnoses Not on filedocumented in this encounter Care Teams Gate Watch Relationship Specialty Start Date End Date Tracey Patel MD PCP - General Family Medicine 06/13/17 documented as of this encounter
--- OUTSIDE RECORDS SUMMARY | 2024-07-24 09:41 | XMS_ITS | Encounter Summary ---
Author Organization [facility] Address [address] [facility] [place] [address] Care Team Providers Care Communication Signals Intelligence Name Role Phone Tracey Patel MD Primary Care Provider [phone] Reason for Visit * Reason Comments Lesions Mouth for about a month Mass in mouth for about a month Encounter Details Date Type Department Care Team (Late st Contact Info) Description 02/02/2019 3:30 PM CDT Office Visit [facility] Medical [facility] - Family Medicine [id number] [place] [phone] Tracey Patel MD [address] [place] [phone] Food allergy (Primary Dx); Oral lesion Social History Tobacco Use Types Packs/Day Years Used Date Smoking Tobacco: Never Smokeless Tobacco: Never Alcohol Use Standard Drinks/Week Comments Yes 0 (1 standard drink = 0.6 oz pur e alcohol) socially Sex and Gender Information Value Date Recorded Sex Assigned at Not on file Gender Identity Not on file Sexual Orientation Not on file documented as of this encounter Last Filed Vital Signs Vital Sign Reading Time Taken Comments Blood Pressure 100/64 02/02/2019 3:29 PM CDT Pulse 71 02/02/2019 3:29 PM CDT Temperature 36.7 ??C (98.1 ??F) 02/02/2019 3:29 PM CD T Respiratory Rate - - Oxygen Saturation - - Inhaled Oxygen Concentration - - Weight 56.1 kg (123 lb 9.6 oz) 02/02/2019 3:29 P M CDT Height 157.5 cm (5' 2 ) 02/02/2019 3:29 PM CDT Body Mass Index 22.61 02/02/2019 3:29 PM CDT documented in this encounter Progress Notes * Tracey Patel MD - 02/02/2019 9:46 PM CDT Subjective Rosalba Jimenez is a 38 year old female here for: A one-month history of intermittent burning in her tongue and swelling and sores in her tongue that seem to happen any time she eats tomatoes, potatoes,or peppers. She has never had problems with these foods before. A few times, she had to take Benadryl to help with her symptoms. While checking out the sores in her mouth, she noticed a hard swellingalong her right lower gumline that she is sure was not there before. She last saw her dentist about3 months ago for a routine dental exam that included panoramic x-rays. She denies fever, chills, myalgias, arthralgias, unexplained weight loss. She has no current sores in her tongue because she has been avoiding the problem foods. PHYSICAL EXAM: BP 100/64 Pulse 71 Temp 98.1 ??F (36.7 ??C) Wt 56.1 kg (123 lb 9.6 oz) LMP 01/23/2019 (Exact Date) BMI 22.61 kg/m2 FiO2: Wt Readings from Last 3 Encounters: 02/02/19 56.1 kg (123 lb 9.6 oz) 11/30/18 55 kg (121 lb 3.2 oz) 05/14/18 61.7 kg (136 lb) General appearance: alert, cooperative, pleasant, in no acute distress. ENT exam reveals - ENT exam normal, no neck nodes or sinus tenderness. Oropharyngeal exam - mucous membranes moist, pharynx normal without lesions. She has a firm bony protruberance on her right lower mandible along the lingular surface that is not tender. Neck: without thyromegaly or cervical lymphadenopathy. Heart: regular rhythm, normal S1 and S2, without murmurs, rubs or gallops. Lungs: breath sounds normal and symmetric; no rales or wheezes. Good air movement. Extremities: no clubbing, cyanosis or edema. ASSESSMENT: 1. Food allergy 2. Oral lesion Plan Orders Placed This Encounter ??? ALLERGEN FOOD VEGETABLE II PROFILE ??? AMB REFERRAL TO ALLERGY Standing Status: Future Standing Expiration Date: 02/02/2020 Referral Priority: Routine Referral Type: Evaluate & Treat Referral Reason: Specialty Services Required Referred to Provider: Annette Sheridan MD Requested Specialty: Allergy and Immunology Number of Visits Requested: 1 Will check food allergen profile and send e-mail with results. She is advised to avoid the foods that she has already noticed to trigger her symptoms until we get the test results back and I did advise her to see an bath solution maker as well for consultation. She was given a referral today. She will keep Benadryl on hand to take if needed. I discussed signs of acutely worsening symptoms and when it wouldbe appropriate to go to the emergency room instead. She is advised to make an appointment with her dentist regarding the bony lesion along her gumline and to ask for films to compare with the panoramic films she had about 3 months ago. If this is a new lesion, she will need to see a maxillofacial surgeon. She voiced understanding and agreement with plan. documented in this encounter Plan of Treatment Not on file documented as of this encounter Procedures Procedure Name Priority Date/Time Associated Diagnosis Comments ALLERGEN FOOD VEGETABLE II PROFILE Routine 02/02/2019 3:58 PM CDT Food allergy documented in this encounter Results * ALLERGEN FOOD VEGETABLE II PROFILE [...] BILL - 02/05/2019 1:06 PM CDT Test(s) [id number] Green Cullen; [id number] Kidney Cullen; [id number] Pumpkin were developed and had performance characteristics determined by [facility]. These tests have not been cleared or approved by the U.S. Food and Drug Administration. The FDA has determined that such clearance or approval is not necessary. These tests are used for clinical purposes. These should not be regarded as investigational or for research. Resulting Agency Comment Lab Testing performed at: [address] ??[facility] [id number] Tracey Patel MD LAB - SEROLOGY ORDER [facility] B[facility] [address] [place] [address] documented in this encounter Visit Diagnoses Diagnosis Food allergy- Primary Other adverse food reactions, not elsewhere classified Oral lesion Other and unspecified diseases of the oral soft tissues documented in this encounter Care Teams Communication Signals Intelligence Relationship Specialty Start Date End Date Tracey Patel MD PCP - General Family Medicine 06/13/17 documented as of this encounter
--- OUTSIDE RECORDS SUMMARY | 2024-07-24 09:41 | XMS_ITS | Encounter Summary ---
Author Organization [facility] Address [address] [place] [address] Care Team Providers Care Tractor Drill Operator Name Role Phone Roxanna Acosta MD Primary Care Provider [phone] Encounter Details Date Type Department Care Team (Late Contact Info) Description 03/23/2024 External Device Data [facility] ABSTRACTION Provider, Abstract NO ADDRESS ON FILE Social History Tobacco Use Types Packs/Day Years Used Date Smoking Tobacco: Never Smokeless Tobacco: Never Alcohol Use Standard Drinks/Week Comments Yes 0 (1 standard drink = 0.6 oz pur e alcohol) social Feeling Safe Answer Date Recorded Are you in a relationship wi th someone who hurts you emotionally and/or physically? No 06/16/2023 Food Insecurity Answer Date Recorded Social/Environmental Concerns No concerns Transportation Needs Answer Date Record ed Social/Environmental Concerns No concerns Housing Stability Answer Date Recorded Social/Environmental Concerns No concerns Utility Needs Answer Date Recorded Social/Environmental Concerns No concerns Sex and Gender Information Value Date Recorded Sex Assigned at Not on file Gender Identity Not on file Sexual Orientation Not on file documented as of this encounter Plan of Treatment Upcoming Encounters Date Type Department Care Team ([facility] Contact Info) Description 08/23/2024 11:15 AM THEATRE PROGRAM DIRECTOR Office Visit [facility] Oncology and Hematology - [place] [address] [place] [address] Michele Smith MD [address] [facility] [address] [place] [address] documented as of this encounter Visit Diagnoses Not on filedocumented in this encounter Care Teams Tractor Drill Operator Relationship Specialty Start Date End Date Roxanna Acosta MD PCP - General Family Practice 02/19/12 documented as of this encounter
--- OUTSIDE RECORDS SUMMARY | 2024-07-24 09:41 | XMS_ITS | Encounter Summary ---
Author Organization [facility] Address [address] [place] [address] Care Team Providers Care Electronic System Engineer Name Role Phone Tracey Patel MD Primary Care Provider [phone] Reason for Visit * Reason Comments Physical Encounter Details Date Type Department Care Team (Latest Contact Info) Description 06/28/2019 9:30 AM SUSTAINABILITY SPECIALIST Office Visit [facility] Medical [facility] - Family Medicine [id number] [place] [phone] Tracey Patel MD [address] [place] [phone] Annual physical exam (Primary Dx); Attention deficit hyperactivity disorder (ADHD), predominantly inattentive type Social History Tobacco Use Types Packs/Day Years [...] Sign Reading Time Taken Comments Blood Pressure 116/73 06/28/2019 9:40 AM SUSTAINABILITY SPECIALIST Pulse 108 06/28/2019 9:40 AM SUSTAINABILITY SPECIALIST Temperature 37 ??C (98.6 ??F) 06/28/2019 9:40 AM SUSTAINABILITY SPECIALIST Respiratory Rate - - Oxygen Saturation - - Inhaled Oxygen Concentration - - Weight 56.9 kg (125 lb 6.4 oz) 06/28/2019 9:40 A M SUSTAINABILITY SPECIALIST Height 157.5 cm (5' 2 ) 06/28/2019 9:40 AM SUSTAINABILITY SPECIALIST Body Mass Index 22.94 06/28/2019 9:40 AM SUSTAINABILITY SPECIALIST documented in this encounter Progress Notes * Tracey Patel MD - 06/28/2019 10:00 AM CST SUBJECTIVE: Rosalba Jimenez is a 39 year old female that presents for: Annual physical exam. Patient Active Problem List Diagnosis Date Noted ??? Attention deficit hyperactivity disorder (ADHD), predominantly inattentive type 04/16/2018 Priority: Not Prioritized ??? Left breast lump 07/09/2017 Priority: Not Prioritized There is no immunization history on file for this patient. Outpatient Medications Prior to Visit Medication Sig Dispense Refill ??? amphetamine-dextroamphetamine XR 24hr (ADDERALL XR) 30 MG capsule Take 1 capsule by mouth everymorning 30 capsule 0 ??? ibuprofen (MOTRIN) 600 MG tablet Take 600 mg by mouth every 6 hours as needed No facility-administered medications prior to visit. No past medical history on file. Family History Problem Relation Age of Onset ??? Other Mother had hysterectomy due to menorrhagia ??? Cancer - Skin, Non Melanoma Mother ??? Cancer - Skin, Melanoma Mother ??? Other Sister endometriosis ??? Cancer - Prostate Father Social History Socioeconomic History ??? Marital status: Spouse name: Not on file ??? Number of children: Not on file ??? Years of education: Not on file ??? Highest education level: Not on file Occupational History ??? Not on file Social Needs ??? Financial resource strain: Not on file ??? Food insecurity: Worry: Not on file Inability: Not on file ??? Transportation needs: Medical: Not on file Non-medical: Not on file Tobacco Use ??? Smoking status: Never Smoker ??? Smokeless tobacco: Never Used Substance and Sexual Activity ??? Alcohol use: Yes Comment: socially ??? Drug use: No ??? Sexual activity: Yes Partners: Male control/protection: Natural Family Planning Lifestyle ??? Physical activity: Days per week: Not on file Minutes per session: Not on file ??? Stress: Not on file Relationships ??? Social connections: Talks on phone: Not on file Gets together: Not on file Attends jainism service: Not on file Active member of club or organization: Not on file Attends meetings of clubs or organizations: Not on file Relationship status: Not on file ??? Intimate partner violence: Fear of current or ex partner: Not on file Emotionally abused: Not on file Physically abused: Not on file Forced sexual activity: Not on file Other Topics Concern ??? 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 Cervical LEEP 2018 ??? Tonsillectomy 2001 No Known Allergies REVIEW OF SYSTEMS: Constitutional: No unexplained fever, sweats. Eyes: Vision stable, no discomfort. Ears, nose, mouth, and throat: No mouth dryness, sores, hearing stable, no nasal discharge. Respiratory: No cough, dyspnea, wheezing, pleuritic pain. Cardiovascular: No exertional chest pain, palpitations, edema, claudication. Gastrointestinal: No bleeding, frequent reflux, dysphagia, change in bowels, pain. Genitourinary: No nocturia, dysuria, frequency, bleeding. Skin: No recent rashes, or pruritus. Breast: No masses, pain or nipple discharge. Menses: Regular menses, no abnormal bleeding. She is up to date on [employer] through her retail buyer. Hematologic/lymphatic: No history of anemia. No abnormal bleeding or bruising. Musculoskeletal: No painful joints, myalgia, swelling, weakness. Neurological: Stable gait, no numbness, tingling, syncope, dizziness. We recently increased her dose Adderall slightly and this has worked well for her. She denies any side effects. Behavioral/Psych: No sleep disturbance, memory changes, depression. Endocrine: No fatigue or weight change. ROS negative except as mentioned in ROS or in HPI OBJECTIVE: BP 116/73 Pulse 108 Temp 98.6 ??F (37 ??C) (Oral) Ht 1.575 m (5' 2 ) Wt 56.9 kg (125 lb 6.4 oz) LMP 06/23/2019 (Approximate) BMI 22.94 kg/m?? Wt Readings from Last 3 Encounters: 06/28/19 56.9 kg (125 lb 6.4 oz) 02/02/19 56.1 kg (123 lb 9.6 oz) 11/30/18 55 kg (121 lb 3.2 oz) General Appearance: alert, cooperative, no distress, oriented to person, place, and time, well appearing, thin Mental Status: alert, oriented to person, place, and time, normal mood, behavior, speech, dress, motor activity, and thought processes, affect appropriate to mood HEENT: ENT exam normal, no neck nodes or sinus tenderness. Eyes: LEDY, EOMI, fundi normal Neck: Neck - supple, no significant adenopathy, no thyromegaly. Skin: Normal visualized skin, no acute rashes or lesions Heart: regular rhythm, normal S1 and S2, without murmurs, gallops or rubs Lungs: clear to auscultation, no wheezes, rales or rhonchi, symmetric air entry Abdomen: soft without mass, non-tender, with normal bowel sounds Extremities: no clubbing, cyanosis or edema Neuro: alert, oriented, normal speech, no focal findings or movement disorder noted. Musculoskeletal: Normal no joint tenderness, deformity or swelling. ASSESSMENT: Annual physical exam Attention deficit hyperactivity disorder (ADHD), predominantly inattentive type PLAN: There are no discontinued medications. No orders of the defined types were placed in this encounter. Routine age-appropriate anticipatory guidance was given. She declined flu vaccine and Adacel today. She wants to check with her insurance on coverage and check on the ingredient as she recently found out she is allergic to soy. She was given a package insert on both of these vaccines so that she may check the ingredient list and may return for nurse visit for these vaccines if she decides to have them done. I discussed doing labs but she declined, stating her recently had labs with a physical and there was a lab charge and she does not want to do this. The only thing that was abnormal on her labs 2 years ago was a low vitamin-D level. She was given handout on vitamin-D deficiency and calcium and osteoporosis and advised to increase her dietary intake of calcium and vitamin-D. She is doing well with her current dose of Adderall and will continue this. She will let me know when she needs a refill. Follow up: one year, sooner if needed. She voiced understanding and agreement with plan. AINABILITY SPECIALIST * Anusha Hargrove - 06/28/2019 9:40 AM CST PHQ-2 : Little interest or pleasure in doing things: Not at all Feeling down, depressed, or hopeless: Not at all TOTAL POINT SCORE: 0 PHQ-9: Little interest or pleasure in doing things: Not at all Feeling down, depressed, or hopeless: Not at all AINABILITY SPECIALIST documented in this encounter Plan of Treatment Not on file documented as of this encounter Visit Diagnoses Diagnosis Annual physical exam- Primary Routine general medical examination at a health care facility Attention deficit hyperactivity disorder (ADHD), predominantly inattentive type documented in this encounter Care Teams Electronic System Engineer Relationship Specialty Start Date End Date Tracey Patel MD PCP - General Family Medicine 06/13/17 documented as of this encounter
--- OUTSIDE RECORDS SUMMARY | 2024-07-24 09:41 | XMS_ITS | Encounter Summary ---
Author Organization [facility] Address [address] [place] [address] Care Team Providers Care Physical Security Manager Name Role Phone Tracey Patel MD Primary Care Provider [phone] Reason for Visit * Reason Onset Date Comments Reschedule Appointment 11/20/2017 Encounter Details Date Type Department Care Team (Late st Contact Info) Description 11/20/2017 Telephone [facility] Medical [facility] - WEIGHT CLERK [id number] [place] [phone] Carlyn Morris Reschedule Appointment Social History Tobacco Use Types Packs/Day [...] encounter Miscellaneous Notes * Telephone Encounter - Carlyn Morris - 11/20/2017 4:25 PM CDT Called patient to reschedule canceled appointment for Colposcopy. Patient stated she went back to her old doctor and had procedure Colposcopy done. Informed patient will forward to Dr. Saldivar. documented in this encounter Plan of Treatment Not on file documented as of this encounter Visit Diagnoses Not on filedocumented in this encounter Care Teams Physical Security Manager Relationship Specialty Start Date End Date Tracey Patel MD PCP - General Family Medicine 06/13/17 documented as of this encounter
--- OUTSIDE RECORDS SUMMARY | 2024-07-24 09:41 | XMS_ITS | Encounter Summary ---
Author Organization [facility] Address [address] [facility] [place] [address] Care Team Providers Care Sports Betting Manager Name Role Phone Unavailable Primary Care Provider Unavailabl e Reason for Visit * Reason Onset Date Comments Question 06/12/2017 Encounter Details Date Type Department Care Team (Late st Contact Info) Description 06/12/2017 Telephone [facility] Medical [facility] - Family Medicine [id number] [place] [phone] Tracey Patel MD [address] [place] [phone] Question Social History Tobacco Use Types Packs/Day Years Used Date Smoking Tobacco: Never Assessed Sex and Gender Information Value Date Recorded Sex Assigned at Not on file Gender Identity Not on file Sexual Orientation Not on file documented as of this encounter Miscellaneous Notes * Telephone Encounter - Kathy Díaz MA - 06/12/2017 1:47 PM CLARITY DEVELOPER Patient scheduled. ITY DEVELOPER * Telephone Encounter - Tracey Patel MD - 06/12/2017 1:03 PM CST That's fine. ITY DEVELOPER * Telephone Encounter - Kathy Díaz MA - 06/12/2017 11:30 AM CLARITY DEVELOPER Patient is looking for a new PCP. Patient asking if Dr. Patel would take her as a new patient? Patient has [employer] insurance and her children see Dr. Sanchez. ITY DEVELOPER documented in this encounter Plan of Treatment Not on file documented as of this encounter Visit Diagnoses Not on filedocumented in this encounter
--- OUTSIDE RECORDS SUMMARY | 2024-07-24 09:41 | XMS_ITS | Encounter Summary ---
Author Organization [facility] Address [facility] [place] [address] Care Team Providers Care Bakery Machine Mechanic Name Role Phone Tracey Patel MD Primary Care Provider [phone] Reason for Visit * Reason Comments Congestion head Encounter Details Date Type Department Care Team (Latest Contact Info) Description 11/30/2018 2:30 PM CDT Office Visit [facility] - Family Medicine [id number] [place] [phone] Tracey Patel MD [address] [place] [phone] Acute sinusitis, recurrence not specified, unspecified location (Primary Dx); Attention deficit hyperactivity disorder (ADHD), [...] Sign Reading Time Taken Comments Blood Pressure 101/69 11/30/2018 2:31 PM CDT Pulse 74 11/30/2018 2:31 PM CDT Temperature 36.7 ??C (98.1 ??F) 11/30/2018 2:31 PM CD T Respiratory Rate - - Oxygen Saturation - - Inhaled Oxygen Concentration - - Weight 55 kg (121 lb 3.2 oz) 11/30/2018 2:31 PM CDT Height 157.5 cm (5' 2 ) 11/30/2018 2:31 PM CDT Body Mass Index 22.17 11/30/2018 2:31 PM CDT documented in this encounter Patient Instructions * Patient Instructions* Tracey Patel MD - 11/30/2018 3:16 PM CDT Images from the original note were not included. Sinusitis WHAT YOU NEED TO KNOW: What is sinusitis? Sinusitis is inflammation or infection of your sinuses. It is most often caused by a virus. Acute sinusitis may last up to 12 weeks. Chronic sinusitis lasts longer than 12 weeks. Recurrent sinusitis means you have 4 or more times in 1 year. What increases my risk for sinusitis? ?? Medical conditions, such as an upper respiratory infection, allergies, asthma, or cystic fibrosis ?? Dental infections or procedures, such as gum infections, tooth decay, or a root canal ?? Smoking ?? Abnormal sinus structure, such as nasal growths, swollen tonsils, or a deviated septum ?? A weak immune system, from diseases such as diabetes or HIV What are the signs and symptoms of sinusitis? ?? Fever ?? Pain, pressure, redness, or swelling around the forehead, cheeks, or eyes ?? Thick yellow or green discharge from your nose ?? Tenderness when you touch your face over your sinuses ?? Dry cough that happens mostly at night or when you lie down ?? Headache and face pain that is worse when you lean forward ?? Tooth pain, or pain when you chew How is sinusitis diagnosed? Your healthcare provider will examine you and ask about your symptoms. He or she will check inside your nose using a nasal speculum. This is a small tool used to open yournostrils. A sample of the mucus from your nose may show what germ is causing your infection. How is sinusitis treated? Your symptoms may go away on their own. Your healthcare provider may recommend watchful waiting for up to 10 days before starting antibiotics. You may need any of the following: ?? Acetaminophen decreases pain and fever. It is available without a doctor's order. Ask how much to take and how often to take it. Follow directions. Read the labels of all other medicines you are using to see if they also contain acetaminophen, or ask your doctor or pharmacist. Acetaminophen can cause liver damage if not taken correctly. Do not use more than 4 grams (4,000 milligrams) total of acetaminophen in one day. ?? NSAIDs , such as ibuprofen, help decrease swelling, pain, and fever. This medicine is available with or without a doctor's order. NSAIDs can cause stomach bleeding or kidney problems in certain people. If you take blood thinner medicine, always ask your healthcare provider if NSAIDs are safe foryou. Always read the medicine label and follow directions. ?? Nasal steroid sprays may help decrease inflammation in your nose and sinuses. ?? Decongestants help reduce swelling and drain mucus in the nose and sinuses. They may help you breathe easier. ?? Antihistamines help dry mucus in the nose and relieve sneezing. ?? Antibiotics help treat or prevent a bacterial infection. How can I manage my symptoms? ?? Rinse your sinuses. Use a sinus rinse device to rinse your nasal passages with a saline (salt water) solution or distilled water. Do not use tap water. This will help thin the mucus in your nose and rinse away pollen and dirt. It will also help reduce swelling so you can breathe normally. Ask your healthcare provider how often to do this. ?? Breathe in steam. Heat a bowl of water until you see steam. Lean over the bowl and make a tent over your head with a large towel. Breathe deeply for about 20 minutes. Be careful not to get too close to the steam or burn yourself. Do this 3 times a day. You can also breathe deeply when you take ahot shower. ?? Sleep with your head elevated. Place an extra pillow under your head before you go to sleep to help your sinuses drain. ?? Drink liquids as directed. Ask your healthcare provider how much liquid to drink each day and which liquids are best for you. Liquids will thin the mucus in your nose and help it drain. Avoid drinks that contain alcohol or caffeine. ?? Do not smoke, and avoid secondhand smoke. Nicotine and other chemicals in cigarettes and cigars can make your symptoms worse. Ask your healthcare provider for information if you currently smoke and need help to quit. E-cigarettes or smokeless tobacco still contain nicotine. Talk to your healthcare provider before you use these products. How can I help prevent the spread of germs that cause sinusitis? Wash your hands often with soap and water. Wash your hands after you use the bathroom, change a child's diaper, or sneeze. Wash your hands before you prepare or eat food. When should I seek immediate care? ?? Your eye and eyelid are red, swollen, and painful. ?? You cannot open your eye. ?? You have vision changes, such as double vision. ?? Your eyeball bulges out or you cannot move your eye. ?? You are more sleepy than normal, or you notice changes in your ability to think, move, or talk. ?? You have a stiff neck, a fever, or a bad headache. ?? You have swelling of your forehead or scalp. When should I contact my healthcare provider? ?? Your symptoms do not improve after 3 days. ?? Your symptoms do not go away after 10 days. ?? You have nausea and are vomiting. ?? Your nose is bleeding. ?? You have questions or concerns about your condition or care. CARE AGREEMENT: You have the right to help plan your care. Learn about your health condition and how it may be treated. Discuss treatment options with your healthcare providers to decide what care you want to receive. You always have the right to refuse treatment. The above information is an educational specialist only. It is not intended as medical advice for individual conditions or treatments. Talk to your doctor, nurse or pharmacist before following any medical regimen to see if it is safe and effective for you. ?? Copyright [employer] 2019 Information is for End User's use only and may not be sold, redistributed or otherwise used for commercial purposes. All illustrations and images included in CareNotes?? are the copyrighted property of [employer] or [employer] documented in this encounter Progress Notes * Tracey Patel MD - 11/30/2018 3:11 PM CDT SUBJECTIVE: Rosalba Jimenez is a 38 year old female who complains of congestion, sore throat, myalgias, headache, bilateral sinus pain and chills for about 5 days. She denies a history of productive cough and denies a history of asthma. Patient does not smoke cigarettes. Has tried sudafed and motrin with Some relief. Sick contacts: None known. Also, she wanted to discuss her ADHD. She has been taking Adderall XR 20 mg daily but feels this isno longer as helpful for her as it had been previously. She would like to try a slightly higher dose. She denies any side effects of this medication. She denies anxiety, heart palpitations, decreasedappetite, or insomnia. She works very long hours and feels the medication wears off too quickly. OBJECTIVE: BP 101/69 Pulse 74 Temp 98.1 ??F (36.7 ??C) (Oral) Wt 55 kg (121 lb 3.2 oz) LMP 11/20/2018 BMI 22.17 kg/m2 FiO2: She appears ill but no acute distress, clinically well-hydrated. Psych: Well dressed and groomed, good eye contact. Speech is logical and regular. Good insight and judgement. No evidence of hallucinations or delusions. Not suicidal and contracts for safety. Ears are normal bilaterally, nares are congested with clear drainage. Throat and posterior oropharynx are normal. Neck is supple and nontender. No anterior cervical lymphadenopathy. Sinuses are moderately tender to percussion. Heart is with regular rhythm. Lungs are clear, without wheezes or rales, good air movement. Skin is without acute rash. ASSESSMENT: Acute sinusitis, recurrence not specified, unspecified location Attention deficit hyperactivity disorder (ADHD), predominantly inattentive type PLAN: Symptomatic therapy suggested: push fluids, rest, use vaporizer or mist prn, use acetaminophen, ibuprofen, antihistamine-decongestant of choice, cough suppressant of choice prn, apply heat to sinusesprn and return office visit prn if symptoms persist or worsen. She is given Augmentin and a prednisone taper and instructed to take the entire course of both. Call or return to clinic if these symptoms worsen or fail to improve as anticipated or if any new symptoms arise. We can do a trial of a slightly higher dose of Adderall XR. She is given Adderall XR 25 mg daily but advised not to start the higher dose until she has finished the prednisone. She has enough left ofher previous dose to do this. She is advised to let me know if this does not adequately treat her symptoms. She voiced understanding and agreement with plan. Orders Placed This Encounter ??? amoxicillin-clavulanate (AUGMENTIN) 500-125 MG tablet Sig: Take 1 tablet by mouth 2 times daily with morning and evening meal for 10 days Dispense: 20 tablet Refill: 0 ??? predniSONE (DELTASONE) 20 MG tablet Sig: Take 1 tablet by mouth 2 times daily for 5 days Dispense: 10 tablet Refill: 0 ??? amphetamine-dextroamphetamine XR 24hr (ADDERALL XR) 25 MG capsule Sig: Take 1 capsule by mouth every morning Dispense: 30 capsule Refill: 0 documented in this encounter Plan of Treatment Not on file documented as of this encounter Visit Diagnoses Diagnosis Acute sinusitis, recurrence not specified, unspecified location- Primary Attention deficit hyperactivity disorder (ADHD), predominantly inattentive type documented in this encounter Care Teams Bakery Machine Mechanic Relationship Specialty Start Date End Date Tracey Patel MD PCP - General Family Medicine 06/13/17 documented as of this encounter
--- OUTSIDE RECORDS SUMMARY | 2024-07-24 09:41 | XMS_ITS | Encounter Summary ---
Author Organization [facility] Address [facility] [facility] [place] [address] Care Team Providers Care Fbi Profiler Name Role Phone Tracey Patel MD Primary Care Provider [phone] Reason for Visit * Reason Onset Date Comments MEDICATION REFILL 09/13/2019 Encounter Details Date Type Department Care Team (Late st Contact Info) Description 09/13/2019 Refill [facility] - Family Medicine [id number] [place] [phone] Tracey Patel MD [address] [place] [phone] MEDICATION REFILL Social History Tobacco Use [...] * Telephone Encounter - Amanda Casillas - 09/13/2019 2:59 PM CST Rosalba Jimenez No Known Allergies Requested Prescriptions Pending Prescriptions Disp Refills ??? amphetamine-dextroamphetamine XR 24hr (ADDERALL XR) 30 MG capsule 30 capsule 0 Sig: Take 1 capsule by mouth every morning Last Refill: 08/16/19 Last Office Visit: 06/28/2019 [employer] MARKET[employer] documented in this encounter Plan of Treatment Not on file documented as of this encounter Visit Diagnoses Not on filedocumented in this encounter Care Teams Fbi Profiler Relationship Specialty Start Date End Date Tracey Patel MD PCP - General Family Medicine 06/13/17 documented as of this encounter
--- OUTSIDE RECORDS SUMMARY | 2024-07-24 09:41 | XMS_ITS | Encounter Summary ---
Author Organization [facility] Address [address] [place] [address] Care Team Providers Care Willow Machine Operator Name Role Phone Roxanna Acosta MD Primary Care Provider Encounter Details Date Type Department Care Team (Late Contact Info) Description 02/24/2024 External Device Data STL ABSTRACTION Provider, Abstract [...] Upcoming Encounters Date Type Department Care Team ([facility] Contact Info) Description 08/23/2024 11:15 AM TELEPHONE MESSENGER Office Visit [facility] Oncology and Hematology - [place] [address] [facility] [address] [place] [address] Michele Smith MD [address] [facility] [address] [place] [address] documented as of this encounter Visit Diagnoses Not on filedocumented in this encounter Care Teams Willow Machine Operator Relationship Specialty Start Date End Date Roxanna Acosta MD PCP - General Family Practice 02/19/12 documented as of this encounter
--- OUTSIDE RECORDS SUMMARY | 2024-07-24 09:41 | XMS_ITS | Encounter Summary ---
Author Organization [facility] Address [facility] [facility] [place] [address] Care Team Providers Care Soft Iron Inspector Name Role Phone Tracey Patel MD Primary Care Provider [phone] Reason for Visit * Reason Comments Memorial Adviser Routine Exam Encounter Details Date Type Department Care Team (Latest Contact Info) Description 07/09/2017 2:30 PM WET TRIMMER Office Visit [facility] - PRODUCTION CONTROL EXPERT [id number] [facility] [address] [place] [address] [place] [address] [facility] [address] [place] [address] Well woman exam with routine gynecological exam (Primary Dx); Screening for HPV (human papillomavirus); Left breast lump Social History Tobacco Use Types Packs/Day Years [...] Sign Reading Time Taken Comments Blood Pressure 114/88 07/09/2017 2:44 PM WET TRIMMER Pulse - - Temperature - - Respiratory Rate - - Oxygen Saturation - - Inhaled Oxygen Concentration - - Weight 67 kg (147 lb 12.8 oz) 07/09/2017 2:44 PM WET TRIMMER Height 157.5 cm (5' 2 ) 07/09/2017 2:44 PM WET TRIMMER Body Mass Index 27.03 07/09/2017 2:44 PM WET TRIMMER documented in this encounter Progress Notes * Joyce Saldivar MD - 07/09/2017 2:48 PM CST Well Woman Yearly Exam (Premenopausal) HISTORY: Rosalba Jimenez is a 37 y.o. female, Patient's last menstrual period was 06/19/2017., here fora Well Woman exam. She reports no gynecologic complaints. Denies irregular bleeding, discharge, itching, burning, or pelvic pain. The patient is sexually active. When sexually active, single partner, contraception - natural family planning. The pt does participate in regular exercise, walks and does yoga. Menses: Current bleeding pattern: Regular monthly cycle without intermenstrual spotting. Periods last about 4 days. At the heaviest she has to change tampon every 2 hours. Clots: yes. Takes aleve starting first day of cycle through cycle, to control menstrual cramps. Pap history: Patient's last pap smear was 5 years ago -normal. She denies hx of abnormal pap smears. Breast history: Denies hx of breast biopsy No past medical history on file. Past Surgical History: Procedure Laterality Date ??? Tonsillectomy 2000 Social History Social History ??? Marital status: Spouse name: N/A ??? Number of children: N/A ??? Years of education: N/A Occupational History ??? Not on file. Social History Main Topics ??? Smoking status: Never Smoker ??? Smokeless tobacco: Never Used ??? Alcohol use Yes Comment: socially ??? Drug use: No ??? Sexual activity: Yes Partners: Male control/ protection: Natural Family Planning Other Topics Concern ??? 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 Other Mother had hysterectomy due to menorrhagia ??? Other Sister endometriosis Review of Systems Constitutional: No weight or appetite changes. Eyes: No double vision, dizziness, headache, or visual changes. EENT: No sore throat, coryza, cough, or neck stiffness. CV: No palpitations or chest pain. Able to walk one flight of steps. Respiratory: No shortness of breath. GI: No nausea, vomiting, diarrhea, constipation, hemoptysis, melena, or hematochezia. : No UTIs, frequency, urgency, pain, hematuria, vaginal dryness or vaginal discharge. MS: No weakness, imbalance, or pain. Skin: No rash, changing moles, or bruises. Neuro: No syncope or neurological changes. Psychiatric: No depression or suicidal ideation. No mood changes. Endocrine: No thyroid or diabetes problems. Hematologic: No bruising or bleeding disorders. Lymphatic: No lymph node enlargement. EXAMINATION BP 114/88 Ht 5' 2 Wt 147 lb 12.8 oz BMI 27.03 kg/m2 Body mass index is 27.03 kg/(m^2). NEURO: The patient is oriented x3. NAD. HEENT: Normocephalic, atraumatic. Extraocular muscles are intact. NECK: Supple and symmetrical, without any masses. Thyroid is normal without any masses or enlargement. Trachea is midline. RESP: Lungs are clear to auscultation and percussion, nonlabored CV: Heart with regular rate and rhythm. No murmurs, rubs, clicks, or gallops. BREASTS: Nontender. Notable was a palpable about 2x3cm moble firm mass located 11-12 o'clock on theleft breast about 2 cm above the nipple. No other masses, no discharge. No tissue texture changes or dimpling. The patient is counseled on breast self-exam. SKIN: No rashes, lesions, or ulcers. ABDOMEN: Soft. No masses or tenderness noted. There is no liver or spleen enlargement. No evidence of hernia. BACK: No tenderness, masses, or abnormalities noted. EXT: Nontender, nonedematous, full range of motion. There is no clubbing or cyanosis. LYMPHATIC: No supraclavicular, axillary or inguinal adenopathy. EGBUS: Without any lesions or abnormalities. Normal Bartholin's and Disputanta's. Vagina: Moist, pink rugae without any lesions. Well supported with no evidence of relaxation. Cervix: Enlarged multiparous cervix, without any lesions. A thin prep Pap smear was obtained without any difficulty. Uterus: Small, mobile, nontender. Well supported. Adnexa: Nontender without palpable masses. Urinary: Urethral meatus normal without palpable masses. Urethra without masses or tenderness. No suprapubic tenderness associated with bladder. Rectovaginal: Deferred. Vaginal Atrophy: no Pelvic Relaxation: No significant relaxation Discharge: normal and physiologic Clinical staff present for exam: yes ASSESSMENT ICD-10-CM 1. Well woman exam with routine gynecological exam Z01.419 PAP IG LB +HPV APTIMA REFLEX 16,18/45 2. Screening for HPV (human papillomavirus) Z11.51 PAP IG LB +HPV APTIMA REFLEX 16,18/45 3. Left breast lump N63.20 US BREAST LEFT COMPLETE Patient Active Problem List Diagnosis Date Noted ??? Cyst of right ovary 06/17/2017 Priority: Not Prioritized PLAN Rosalba Jimenez is a 37 y.o. . female, Patient's last menstrual period was 06/19/2017., here for a Well Woman exam 1. Preventative medicine: - Breast exam notable for left breast lump, see below. Normal pelvic exam. - A thin prep pap was performed with HPV co-testing of cervix. - Breast self exam reviewed, patient encouraged to perform monthly. - Routine Annual Mammograms recommended starting age 40. - 1200 mg Calcium and Vitamin D intake discussed daily. Bone health discussed. - Exercise 30-45 minutes three times weekly discussed. - Colonoscopy recommendations for screening starting age 50 was discussed. 2. Left breast lump - Discussed malignant and non malignant causes of breast lumps. We discussed the mobility of the lump is reassuring, I suspect fibrous or fibrocystic changes, however the lump still merits further evaluation. - Left breast u/s ordered for evaluation of lump Orders Placed This Encounter ??? US BREAST LEFT COMPLETE ??? PAP IG LB +HPV APTIMA REFLEX 16,18/45 See orders, medications, patient instructions. Joyce Saldivar MD TRIMMER documented in this encounter Plan of Treatment Not on file documented as of this encounter Procedures Procedure Name Priority Date/Time Associated Diagnosis Comments PAP IG LB +HPV APTIMA REFLEX 16,18/45 Routine 07/09/2017 3:07 PM WET TRIMMER Well woman exam with routine gynecological exam Screening for HPV (human papillomavirus) documented in this encounter Results * (ABNORMAL) PAP IG LB +HPV APTIMA REFLEX 16,18/45 (07/09/2017 3:07 PM WET TRIMMER) Diagnosis (A) [facility] ACCOUNT BILL Comment: EPITHELIAL [...] UTERINE CERVIX / Unknown 07/09/2017 3:07 PM WET TRIMMER 07/09/2017 Narrative [facility] ACCOUNT BILL - 07/15/2017 5:10 PM WET TRIMMER Source.............Cervix LMP / Prev Treat...IDP=[id number] No. of containers..01 ThinPrep Vial Resulting Agency Comment [facility] Jason [address] [place] [address] ??Jason GONZALEZ [id number] Joyce Saldivar MD LAB - PATHOLOGY/CYTO LOGY ORDERABLES [facility] ACCOUNT BILL [address] [address] documented in this encounter Visit Diagnoses Diagnosis Well woman exam with routine gynecological exam- Primary Routine gynecological examination Screening for HPV (human papillomavirus) Special screening examination for human papillomavirus (HPV) Left breast lump Lump or mass in breast documented in this encounter Care Teams Soft Iron Inspector Relationship Specialty Start Date End Date Tracey Patel MD PCP - General Family Medicine 06/13/17 documented as of this encounter
--- OUTSIDE RECORDS SUMMARY | 2024-07-24 09:41 | XMS_ITS | Encounter Summary ---
Author Organization [facility] Address [facility] [facility] [place] [address] Care Team Providers Care Medical Clinic Manager Name Role Phone Tracey Patel MD Primary Care Provider [phone] Reason for Visit * Reason Onset Date Comments MEDICATION REFILL 04/28/2019 Encounter Details Date Type Department Care Team (Late st Contact Info) Description 04/28/2019 Refill [facility] Medical [facility] - Family Medicine [id number] [place] [address] Tracey Patel MD [address] [place] [phone] MEDICATION REFILL Social History Tobacco Use [...] Telephone Encounter - Tracey Patel MD - 04/29/2019 8:49 AM CDT Let her know the refill has been sent in. * Telephone Encounter - Anusha Hargrove - 04/28/2019 3:14 PM CDT Rosalba Jimenez No Known Allergies Requested Prescriptions Pending Prescriptions Disp Refills ??? amphetamine-dextroamphetamine XR 24hr (ADDERALL XR) 25 MG capsule 30 capsule 0 Sig: Take 1 capsule by mouth every morning Last Refill: 03/25/2019 Last Office Visit: 02/02/2019 documented in this encounter Plan of Treatment Not on file documented as of this encounter Visit Diagnoses Not on filedocumented in this encounter Care Teams Medical Clinic Manager Relationship Specialty Start Date End Date Tracey Patel MD PCP - General Family Medicine 06/13/17 documented as of this encounter
--- OUTSIDE RECORDS SUMMARY | 2024-07-24 09:41 | XMS_ITS | Encounter Summary ---
Author Organization [facility] Address [facility] [place] [address] Care Team Providers Care Answering Service Agent Name Role Phone Tracey Patel MD Primary Care Provider [phone] Reason for Referral * Radiology Services (Routine) - Closed Specialty Diagnoses / Procedures Referred By Sana jarquin Referred To Contact Ultrasound Diagnoses Cyst of right ovary Procedures US PELVIS WITH TRANSVAG NON Tracey Coy MD [address] [place] [address] [facility] [address] [address] Referral ID Status Reason Start Date Expiration Date Visits Re quested Visits Authorized [id number] Closed 06/17/2017 12/14/2017 1 1 T MANAGER Reason for Visit * Radiology Services (Routine) - Closed Specialty Diagnoses / Procedures Referred By Contac t Referred To Contact Ultrasound Diagnoses Cyst of right ovary Procedures US PELVIS WITH TRANSVAG NON Tracey Coy MD [address] [place] [address] [facility] [address] [address] Referral ID Status Reason Start Date Expiration Date Visits Re quested Visits Authorized [id number] Closed 06/17/2017 12/14/2017 1 1 Encounter Details Date Type Department Care Team (Latest Contact Info) Description 07/01/2017 9:59 AM GRANT MANAGER - 07/01/2017 11:59 PM GRANT MANAGER Hospital Encounter [facility] - Ultrasound [address] [place] [address] Tracey Patel MD [address] [place] [address] [place] [address] Discharge Disposition: Home or Self Care Social History Tobacco Use Types Packs/Day Years Used Date Smoking Tobacco: Never Smokeless Tobacco: Never Alcohol Use Standard Drinks/Week Comments Yes 0 (1 standard drink = 0.6 oz pur e alcohol) socially Sex and Gender Information Value Date Recorded Sex Assigned at Not on file Gender Identity Not on file Sexual Orientation Not on file documented as of this encounter Medications at Time of Discharge Medication Sig Dispensed Refills Start Date End Date tiZANidine (ZANAFLEX) 4 MG tablet Take 1 tablet by mouth nightly as needed for Muscle Spasms 30 tablet 06/17/2017 05/14/2018 documented as of this encounter Progress Notes * Kathy Díaz MA - 07/01/2017 1:07 PM CST Patient notified and verbalized understanding. T MANAGER * Tracey Patel MD - 07/01/2017 12:28 PM CST Let her know that her ultrasound showed a benign-appearing cyst on her right ovary but was otherwise normal. She should definitely keep the appointment with her OBGYN that she already has scheduled. T MANAGER documented in this encounter Plan of Treatment Not on file documented as of this encounter Procedures Procedure Name Priority Date/Time Associated Diagnosis Comments US PELVIS W TRANSVAG NON OB Routine 07/01/2017 10:57 AM GRANT MANAGER Cyst of right ovary documented in this encounter Results * US PELVIS WITH TRANSVAG NON OB (07/01/2017 10:57 AM GRANT MANAGER) Anatomical Region Laterality Modality Pelvis Ultrasound 07/01/2017 11:0 6 AM GRANT MANAGER Impressions 07/01/2017 11:12 AM GRANT MANAGER RIGHT FOLLICLE CYSTS, OTHERWISE UNREMARKABLE. Edited by Jennifer Stockton on 07/01/2017 11:12 AM Narrative 07/01/2017 11:12 AM GRANT MANAGER ULTRASOUND PELVIS TRANSABDOMINAL ULTRASOUND PELVIS TRANSVAGINAL ULTRASOUND [...] 11:12 AM Tracey Patel MD US ORDERABLES documented in this encounter Visit Diagnoses Diagnosis Cyst of right ovary Other and unspecified ovarian cyst documented in this encounter Care Teams Answering Service Agent Relationship Specialty Start Date End Date Tracey Patel MD PCP - General Family Medicine 06/13/17 documented as of this encounter
--- OUTSIDE RECORDS SUMMARY | 2024-07-24 09:41 | XMS_ITS | Encounter Summary ---
Author Organization [facility] Address [address] [place] [address] Care Team Providers Care Finger Lift Operator Name Role Phone Roxanna Acosta MD Primary Care Provider Encounter Details Date Type Department Care Team (Late Contact Info) Description 04/13/2024 External Device Data STL ABSTRACTION Provider, Abstract [...] Upcoming Encounters Date Type Department Care Team ([facility] Contact Info) Description 08/23/2024 11:15 AM PRINTING BINDERY ASSISTANT Office Visit [facility] Oncology and Hematology - [place] [facility] [address] [place] [address] Michele Smith MD [address] [facility] [address] [place] [address] documented as of this encounter Visit Diagnoses Not on filedocumented in this encounter Care Teams Finger Lift Operator Relationship Specialty Start Date End Date Roxanna Acosta MD PCP - General Family Practice 02/19/12 documented as of this encounter
--- OUTSIDE RECORDS SUMMARY | 2024-07-24 09:41 | XMS_ITS | Encounter Summary ---
Author Organization [facility] Address [address] [facility] [place] [address] Care Team Providers Care Wood Fence Installer Name Role Phone Tracey Patel MD Primary Care Provider [phone] Reason for Visit * Reason Onset Date Comments Question 10/19/2019 Encounter Details Date Type Department Care Team (Late st Contact Info) Description 10/19/2019 Telephone [facility] - Family Medicine [id number] [place] [address] Tracey Patel MD [address] [place] [phone] Question Social History Tobacco Use Types [...] * Telephone Encounter - Amanda Casillas - 10/21/2019 3:55 PM CDT Left message to call office * Telephone Encounter - Kathy Díaz MA - 10/20/2019 3:49 PM CDT Left message for patient to return phone call. * Telephone Encounter - Castro Cullen DO - 10/19/2019 5:18 PM CDT If she is dyspnec, she has the criteria for aguayo If so. She must be seen somewhere, like urgent care. We can't just call in something. Not now. * Telephone Encounter - Anusha Hargrove - 10/19/2019 1:[address] Patel, ?? Last weekend I was sick with a fever, sore throat and headache. This lasted about three days and then I felt pretty good. Friday I felt like I was getting a fever and by the afternoon my temperature was 101.5. On Friday I felt feverish (but only a 99.5 temp). Now today I have a cough (but nothing is coming up), it feels like something is in my throat when I swallow, and I am fatigued. I normally don't ask for antibiotics, but I am wondering if I might need something. I prefer not to go the office, so if you can't determine anything without seeing me, I understand. ?? Thanks, Rosalba Jimenez documented in this encounter Plan of Treatment Not on file documented as of this encounter Visit Diagnoses Not on filedocumented in this encounter Care Teams Wood Fence Installer Relationship Specialty Start Date End Date Tracey Patel MD PCP - General Family Medicine 06/13/17 documented as of this encounter
--- OUTSIDE RECORDS SUMMARY | 2024-07-24 09:41 | XMS_ITS | Encounter Summary ---
Author Organization [facility] Address [address] [place] [address] Care Team Providers Care Balancer Scale Name Role Phone Roxanna Acosta MD Primary Care Provider [phone] Encounter Details Date Type Department Care Team (Late Contact Info) Description 03/24/2024 External Device Data STL ABSTRACTION Provider, Abstract [...] Upcoming Encounters Date Type Department Care Team ([facility] Contact Info) Description 08/23/2024 11:15 AM POURING CRANE OPERATOR Office Visit [facility] Oncology and Hematology - [place] [address] [facility] [address] [place] [address] Michele Smith MD [address] [facility] [address] [place] [address] documented as of this encounter Visit Diagnoses Not on filedocumented in this encounter Care Teams Balancer Scale Relationship Specialty Start Date End Date Roxanna Acosta MD PCP - General Family Practice 02/19/12 documented as of this encounter
--- OUTSIDE RECORDS SUMMARY | 2024-07-24 09:41 | XMS_ITS | Encounter Summary ---
Author Organization [facility] Address [address] [place] [address] Care Team Providers Care Embedded Developer Name Role Phone Roxanna Acosta MD Primary Care Provider [phone] Encounter Details Date Type Department Care Team (Late Contact Info) Description 05/17/2024 Orders Only [facility] Oncology and Hematology - Far[place]ad [address] [facility] [address] [place] [address] Michele Smith MD [address] [facility] [address] [place] [address] Social History Tobacco Use Types Packs/Day Years [...] Upcoming Encounters Date Type Department Care Team (Late Contact Info) Description 08/23/2024 11:15 AM TRANSMISSION SUPERVISOR Office Visit [facility] Oncology and Hematology - [place] [address] [facility] [address] [place] [address] Michele Smith MD [address] [facility] [address] [place] [address] documented as of this encounter Procedures Procedure Name Priority Date/Time Associated Diagnosis Comments COMPREHENSIVE METABOLIC PANEL Routine 05/14/2024 3:41 PM CDT CBC WITH DIFFERENTIAL Routine 05/14/2024 3:23 PM CDT documented in this encounter Results * COMPREHENSIVE METABOLIC PANEL (05/14/2024 3:41 PM CDT) Blood Michele Smith MD CHEMISTRY ORDERABLES * CBC WITH DIFFERENTIAL (05/14/2024 3:23 PM CDT) Blood Michele Smith MD HEMATOLOGY ORDERABLE S documented in this encounter Visit Diagnoses Not on filedocumented in this encounter Care Teams Embedded Developer Relationship Specialty Start Date End Date Roxanna Acosta MD PCP - General Family Practice 02/19/12 documented as of this encounter
--- OUTSIDE RECORDS SUMMARY | 2024-07-24 09:41 | XMS_ITS | Encounter Summary ---
Author Organization [facility] Address [facility] [facility] [place] [address] Care Team Providers Care Field Account Director Name Role Phone Tracey Patel MD Primary Care Provider [phone] Reason for Visit * Reason Onset Date Comments MEDICATION REFILL 11/03/2018 Encounter Details Date Type Department Care Team (Late st Contact Info) Description 11/03/2018 Refill [facility] Medical [facility] - Family Medicine [id number] [place] [phone] Tracey Patel MD [address] [place] [phone] MEDICATION REFILL Social History Tobacco Use [...] Miscellaneous Notes * Telephone Encounter - Tracey Ptael MD - 11/03/2018 10:19 AM CDT Let her know the refill has been sent in. * Telephone Encounter - Anusha Hargrove - 11/03/2018 9:47 AM CDT Rosalba Jimenez No Known Allergies Requested Prescriptions Pending Prescriptions Disp Refills ??? amphetamine-dextroamphetamine XR 24hr (ADDERALL XR) 20 MG capsule 30 capsule 0 Sig: Take 1 capsule by mouth every morning Earliest Fill Date: 11/03/18 Last Refill: 10/06/2018 Last Office Visit: 05/14/2018 * Telephone Encounter - Anusha Hargrove - 11/03/2018 9:18 AM CDTFrom: Rosalba Jimenez To: Tracey Patel MD Sent: 11/03/2018 6:50 AM CDT Subject: Medication Renewal Request Original authorizing provider: MD Rosalba Mckeon would like a refill of the following medications: amphetamine-dextroamphetamine XR 24hr (ADDERALL XR) 20 MG capsule [Tracey Patel MD] Preferred pharmacy: [facility] [address] [address] [phone] [facility] Comment: documented in this encounter Plan of Treatment Not on file documented as of this encounter Visit Diagnoses Not on filedocumented in this encounter Care Teams Field Account Director Relationship Specialty Start Date End Date Tracey Patel MD PCP - General Family Medicine 06/13/17 documented as of this encounter
--- OUTSIDE RECORDS SUMMARY | 2024-07-24 09:41 | XMS_ITS | Encounter Summary ---
Author Organization [facility] Address [address] [place] [address] Care Team Providers Care Hand Fretted Instrument Maker Name Role Phone Tracey Patel MD Primary Care Provider [phone] Reason for Visit * Reason Onset Date Comments MEDICATION REFILL 10/06/2018 Encounter Details Date Type Department Care Team (Late st Contact Info) Description 10/06/2018 Refill [facility] Medical [facility] - Family Medicine [id number] [place] [phone] Tracey Patel MD [address] [place] [phone] MEDICATION REFILL Social History Tobacco Use [...] Telephone Encounter - Tracey Patel MD - 10/06/2018 12:48 PM CST Let her know the refill has been sent in. E ANALYSIS COORDINATOR * Telephone Encounter - Anusha Hargrove - 10/06/2018 12:24 PM CST Rosalba Jimenez No Known Allergies Requested Prescriptions Pending Prescriptions Disp Refills ??? amphetamine-dextroamphetamine XR 24hr (ADDERALL XR) 20 MG capsule 30 capsule 0 Sig: Take 1 capsule by mouth every morning Earliest Fill Date: 10/06/18 Last Refill: 09/03/2018 Last Office Visit: 05/14/2018 E ANALYSIS COORDINATOR * Telephone Encounter - Anusha Hargrove - 10/06/2018 12:23 PM CSTFrom: Rosalba Jimenez To: Tracey Patel MD Sent: 10/06/2018 5:11 AM VALUE ANALYSIS COORDINATOR Subject: Medication Renewal Request Original authorizing provider: MD Rosalba Mckeon would like a refill of the following medications: amphetamine-dextroamphetamine XR 24hr (ADDERALL XR) 20 MG capsule [Tracey Patel MD] Preferred pharmacy: [facility] [id number] [place] [phone] [facility] Comment: E ANALYSIS COORDINATOR documented in this encounter Plan of Treatment Not on file documented as of this encounter Visit Diagnoses Not on filedocumented in this encounter Care Teams Hand Fretted Instrument Maker Relationship Specialty Start Date End Date Tracey Patel MD PCP - General Family Medicine 06/13/17 documented as of this encounter
--- OUTSIDE RECORDS SUMMARY | 2024-07-24 09:41 | XMS_ITS | Encounter Summary ---
Author Organization [facility] Address [address] [place] [address] Care Team Providers Care Coat Joiner Name Role Phone Roxanna Acosta MD Primary [...] Upcoming Encounters Date Type Department Care Team ([facility] Contact Info) Description 08/23/2024 11:15 AM CUSHION SEWER Office Visit [facility] Oncology and Hematology - [address] [facility] [address] [place] [address] Michele Smith MD [address] [facility] [address] [place] [address] documented as of this encounter Visit Diagnoses Not on filedocumented in this encounter Care Teams Coat Joiner Relationship Specialty Start Date End Date Roxanna Acosta MD PCP - General Family Practice 02/19/12 documented as of this encounter
--- OUTSIDE RECORDS SUMMARY | 2024-07-24 09:41 | XMS_ITS | Encounter Summary ---
Author Organization [facility] Address [address] [place] [address] Care Team Providers Care Photoengraving Etcher Name Role Phone Tracey Patel MD Primary Care Provider [phone] Reason for Visit * Reason Onset Date Comments MEDICATION REFILL 03/25/2019 Encounter Details Date Type Department Care Team (Late st Contact Info) Description 03/25/2019 Refill [facility] Medical [facility] - Family Medicine [id number] [place] [phone] Tracey Patel MD [address] [place] [phone] MEDICATION REFILL Social History Tobacco Use [...] * Telephone Encounter - Amanda Casillas - 03/25/2019 11:24 AM CDT Left message informing pt rx sent * Telephone Encounter - Tracey Patel MD - 03/25/2019 11:19 AM CDT Let her know the refill has been sent in. * Telephone Encounter - Kathy Díaz MA - 03/25/2019 8:34 AM CDT Rosalba Jimenez No Known Allergies Requested Prescriptions Pending Prescriptions Disp Refills ??? amphetamine-dextroamphetamine XR 24hr (ADDERALL XR) 25 MG capsule 30 capsule 0 Sig: Take 1 capsule by mouth every morning Last Refill: 02/24/19 Last Office Visit: 02/02/2019 documented in this encounter Plan of Treatment Not on file documented as of this encounter Visit Diagnoses Not on filedocumented in this encounter Care Teams Photoengraving Etcher Relationship Specialty Start Date End Date Tracey Patel MD PCP - General Family Medicine 06/13/17 documented as of this encounter
--- OUTSIDE RECORDS SUMMARY | 2024-07-24 09:41 | XMS_ITS | Encounter Summary ---
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 Message left to return call. If patient returns call please notify: Pap smear returned abnormal with high grade abnormal cells (HGSIL) and positive for the HPV virus. This result means we need to look more closely at the cervix with a procedure called colposcopy and take biopsies of any abnormal areas seen. Patient should take motrin before this visit. Please schedule patient for colposcopy with me. INSULATOR RUBBER documented in this encounter Plan of Treatment Not on file documented as of this encounter Visit Diagnoses Not on filedocumented in this encounter Care Teams Fox Farmer Relationship Specialty Start Date End Date Tracey Patel MD PCP - General Family Medicine 06/13/17 documented as of this encounter
--- OUTSIDE RECORDS SUMMARY | 2024-07-24 09:41 | XMS_ITS | Encounter Summary ---
Author Organization [facility] Address [address] [place] [address] Care Team Providers Care Autopsy Assistant Name Role Phone Camille Costello DO Primary Care Provi roxanne Reason for Visit * Reason Comments Insect Bite Pt complains of the following symptoms R eye pain, drainage, swelling, itchiness, and blurry vision for the past 2 days. Encounter Details Date Type Department Care Team ([facility] st Contact Info) Description 02/28/2024 10:15 AM CDT Office Visit [facility] at [address] [phone] Franc Otero NP [address] [place] [address] [address] [place] [address] Insect bite of right eyelid, initial encounter (Primary Dx); Wasp sting, accidental or unintentional, initial encounter Social History Tobacco Use Types Packs/Day Years Used Date Smoking Tobacco: Never Assessed Comments Unknown Sex and Gender Information Value Date Recorded Sex Assigned at Not on file Legal Sex 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 Gender Identity Not on file Sexual Orientation Not on file documented as of this encounter Last Filed Vital Signs Vital Sign Reading Time Taken Comments Blood Pressure 108/74 02/28/2024 10:14 AM CDT Pulse 63 02/28/2024 10:14 AM CDT Temperature 36.3 ??C (97.4 ??F) 02/28/2024 10:14 AM C DT Respiratory Rate 16 02/28/2024 10:14 AM CDT Oxygen Saturation 100% 02/28/2024 10:14 AM CDT Inhaled Oxygen Concentration - - Weight 67 kg (147 lb 11.2 oz) 02/28/2024 10:14 A M CDT Height 157.5 cm (5' 2 ) 02/28/2024 10:14 AM CDT Body Mass Index 27.01 02/28/2024 10:14 AM CDT documented in this encounter Patient Instructions * Attachments The following attachments cannot be sent through Care Everywhere. * Insect Bite or Sting (AfterCare(R) Instructions(ER/ED)) (Macedonian) documented in this encounter Ordered Prescriptions Prescription Sig Dispense Quantity Refills Last Filled Start Date End Date predniSONE (DELTASONE) 20 mg tabletIndications: Insect bite of right eyelid, initial encounter,Wasp sting, accidental or unintentional, initial encounter Take 2 tablets (40 mg) by mouth daily for 5 days Take with food 10 tablet 02/28/2024 4 documented in this encounter Progress Notes * Franc Otero, SHILPI - 02/28/2024 10:15 AM CDT Images from the original note were not included. Subjective/Objective Patient ID: Rosalba Jimenez is a 43 y.o. female. Chief Complaint Insect Bite (Pt complains of the following symptoms R eye pain, drainage, swelling, itchiness, and blurry vision for the past 2 days. /) Pt [facility] Insect Bite This is a new problem. Episode onset: 2 days ago. The problem occurs daily. The problem has been waxing and waning. Pertinent negatives include no headaches. Nothing aggravates the symptoms. She has tried NSAIDs for the symptoms. The treatment provided mild relief. Review of Systems Eyes: Negative for photophobia, pain, discharge, redness and visual disturbance. Neurological: Negative for headaches. All other systems reviewed and are negative. Physical Exam Vitals and nursing note reviewed. Constitutional: General: She is not in acute distress. Appearance: Normal appearance. Eyes: General: Lids are everted, no foreign bodies appreciated. Vision grossly intact. Gaze aligned appropriately. Extraocular Movements: Extraocular movements intact. Conjunctiva/sclera: Conjunctivae normal. Comments: Minimal edema to right upper eyelid. Patient denies any pain. States she does have itching to right upper eyelid. No erythema. No streaking. No drainage. Cardiovascular: Rate and Rhythm: Normal rate. Pulses: Normal pulses. Pulmonary: Effort: Pulmonary effort is normal. Skin: General: Skin is warm and dry. Capillary Refill: Capillary refill takes less than 2 seconds. Neurological: Mental Status: She is alert and oriented to person, place, and time. Vitals: 02/28/24 1014 BP: 108/74 Pulse: 63 Resp: 16 Temp: 36.3 ??C (97.4 ??F) SpO2: 100% Weight: 67 kg (147 lb 11.2 oz) Height: 157.5 cm (5' 2 ) No results found. No past medical history on file. There is no problem list on file for this patient. Current Outpatient Medications: dextroamphetamine-amphetamine XR (ADDERALL XR) 30 mg 24 hr capsule, Take 1 capsule (30 mg total) bymouth media producer before breakfast, Disp: , Rfl: ibuprofen (ADVIL,MOTRIN) 600 mg tablet, Take 1 tablet (600 mg total) by mouth every 6 (six) hours as needed, Disp: , Rfl: tranexamic acid (LYSTEDA) 650 mg tablet, Take 2 tablets (1,300 mg total) by mouth 3 (three) times aday, Disp: , Rfl: ferrous sulfate ER 324 mg (65 mg iron) EC tablet, Take 1 tablet (324 mg total) by mouth 2 (two) times a day (Patient not taking: Reported on 02/28/2024), Disp: , Rfl: predniSONE (DELTASONE) 20 mg tablet, Take 2 tablets (40 mg) by mouth daily for 5 days Take with food, Disp: 10 tablet, Rfl: 0 Allergies Allergen Reactions Benadryl Decongestant Other (See comments) Feel bad physically and mentally Social History Tobacco Use Smoking status: Not on file Smokeless tobacco: Not on file Substance and Sexual Activity Drug use: Not on file Sexual activity: Not on file Alcohol Use: Not on file No past surgical history on file. Assessment/Plan Diagnoses and all orders for this visit: Insect bite of right eyelid, initial encounter (Primary) - predniSONE (DELTASONE) 20 mg tablet; Take 2 tablets (40 mg) by mouth daily for 5 days Take with food Wasp sting, accidental or unintentional, initial encounter - predniSONE (DELTASONE) 20 mg tablet; Take 2 tablets (40 mg) by mouth daily for 5 days Take with food -patient advised to take Claritin twice daily until symptoms have resolved. Patient states she doesnot like to take Benadryl as she does not like the way it affects her. -monitor for new or worsening symptoms and follow-up as needed -advised patient if symptoms have completely resolved after 3 days of prednisone she may discontinue. But if symptoms remain she may take full 5 days as directed. Patient states understanding and agrees to plan of care. Patient Education: Prednisone Instructions Take this medication with food, preferably breakfast. If taken too late, this medication can cause sleeplessness. Common side effects include increased blood pressure, increased water and sodium retention, increased weight gain, mood changes, and increased blood sugar. Do not take NSAIDS while taking this medication. This includes aspirin, Aleve, Ibuprofen, Naproxen,Midol, Advil, or any medications containing Ibuprofen or aspirin. TAKE ANTACIDS 2 HOURS APART FROM PREDNISONE Go to the ER or call 911 if you experience new onset fevers, personality changes, chest pain, elevated blood pressure >160/90, uncontrollable blood sugars (in diabetics), stomach pain, severe generalized muscle pain, uncontrolled blood pressure, severe headaches, changes in vision, or seizures Risk and possible side effects of prednisone discussed with patient. Pt consents to treatment. Pt. Educated on how to take medication. Insect Bite or Sting WHAT YOU NEED TO KNOW: Most insect bites and stings are not dangerous and go away without treatment. Your symptoms may be mild, or you may develop anaphylaxis. Anaphylaxis is a sudden, life-threatening reaction that needs immediate treatment. Common examples of insects that bite or sting are bees, ticks, mosquitoes, spiders, and ants. Insect bites or stings can lead to diseases such as malaria, West Nile virus, Lyme disease, or [place] Spotted Fever. DISCHARGE INSTRUCTIONS: Call your local emergency number (911 in the ) for signs or symptoms of anaphylaxis, such as trouble breathing, swelling in your mouth or throat, or wheezing. You may also have itching, a rash, hives, or feel like you are going to faint. Return to the emergency department if: You are stung on your tongue or in your throat. A white area forms around the bite. You are sweating badly or have body pain. You think you were bitten or stung by a poisonous insect. Call your doctor if: You have a fever. The area becomes red, warm, tender, and swollen beyond the area of the bite or sting. You have questions or concerns about your condition or care. Medicines: You may need any of the following: Antihistamines decrease itching and rash. Epinephrine is used to treat severe allergic reactions such as anaphylaxis. Take your medicine as directed. Contact your healthcare provider if you think your medicine is not helping or if you have side effects. Tell your provider if you are allergic to any medicine. Keep a list of the medicines, vitamins, and herbs you take. Include the amounts, and when and why you take them. Bring the list or the pill bottles to follow-up visits. Carry your medicine list with you in case of an emergency. Steps to take for signs or symptoms of anaphylaxis: Immediately give 1 shot of epinephrine only into the outer thigh muscle. Leave the shot in place as directed. Your healthcare provider may recommend you leave it in place for up to 10 seconds before you remove it. This helps make sure all of the epinephrine is delivered. Call 911 and go to the emergency department, even if the shot improved symptoms. Do not drive yourself. Bring the used epinephrine shot with you. Safety precautions to take if you are at risk for anaphylaxis: Keep 2 shots of epinephrine with you at all times. You may need a second shot, because epinephrine only works for about 20 minutes and symptoms may return. Your healthcare provider can show you and family members how to give the shot. Check the expiration date every month and replace it before it expires. Create an action plan. Your healthcare provider can help you create a written plan that explains the allergy and an emergency plan to treat a reaction. The plan explains when to give a second epinephrine shot if symptoms return or do not improve after the first. Give copies of the action plan and emergency instructions to family members, work and school staff, and daycare providers. Show them howto give a shot of epinephrine. Carry medical alert identification. Wear medical alert jewelry or carry a card that says you have an insect allergy. Ask your healthcare provider where to get these items. If an insect bites or stings you: Remove the stinger. Scrape the stinger out with your fingernail, edge of a credit card, or a knife blade. Do not squeeze the wound. Gently wash the area with soap and water. Remove the tick. Ticks must be removed as soon as possible so you do not get diseases passed through tick bites. Ask your healthcare provider for more information on tick bites and how to remove ticks. Care for a bite or sting wound: Elevate (raise) the area above the level of your heart, if possible. Prop the area on pillows to keep it raised comfortably. Elevate the area for 10 to 20 minutes each hour or as directed by your healthcare provider. Use compresses. Soak a clean washcloth in cold water, wring it out, and put it on the bite or sting. Use the compress for 10 to 20 minutes each hour or as directed by your healthcare provider. After 24 to 48 hours, change to warm compresses. Apply a paste. Add water to baking soda to make a thick paste. Put the paste on the area for 5 minutes. Rinse gently to remove the paste. Prevent another insect bite or sting: Do not wear bright-colored or flower-print clothing when you plan to spend time outdoors. Do not use hairspray, perfumes, or aftershave. Do not leave food out. Empty any standing water and wash container with soap and water every 2 days. Put screens on all open windows and doors. Put insect repellent that contains DEET on skin that is showing when you go outside. Put insect repellent at the top of your boots, bottom of pant legs, and sleeve cuffs. Wear long sleeves, pants, and shoes. Use citronella candles outdoors to help keep mosquitoes away. Put a tick and flea collar on pets. Disposition Treatment plan including expectations, follow up, and return precautions discussed with patient/parent, verbalizes understanding. Medication dosage, use, and potential adverse reactions discussed with patient/parent. Advised to follow up with PCP if symptoms do not resolve as expected or sooner if condition worsens. Signs/symptoms warranting ER evaluation reviewed. Patient and/or guardian was given an opportunity to ask questions, questions answered. Franc Otero NP This office note has been partially dictated using [employer] software, and as a result portions of the record may have been created with this software. Occasional wrong-word or '[id number]' substitutions may have occurred due to the inherent limitations of voice recognition software. Read the chartcarefully and recognize, using context, where substitutions have occurred. documented in this encounter Plan of Treatment Not on file documented as of this encounter Visit Diagnoses Diagnosis Insect bite of right eyelid, initial encounter- Primary Wasp sting, accidental or unintentional, initial encounter documented in this encounter Historical Medications * This list may reflect changes made after this encounter. tranexamic acid (LYSTEDA) 650 mg tablet Take 2 tablets (1,300 mg total) by mouth 3 (three) times a day 12/08/2023 ibuprofen (ADVIL,MOTRIN) 600 mg tablet Take 1 tablet (600 mg total) by mouth every 6 (six) hours as needed 09/23/2017 ferrous sulfate ER 324 mg (65 mg iron) EC tablet Take 1 tablet (324 mg total) by mouth 2 (two) times a day 01/12/2024 added in this encounter Care Teams Autopsy Assistant Relationship Specialty Start Date End Date Camille Costello DO [address] [place] [id number] PCP - General Family Medicine 09/27/21 documented as of this encounter
--- OUTSIDE RECORDS SUMMARY | 2024-07-24 09:41 | XMS_ITS | Encounter Summary ---
Author Organization [facility] Address [address] [place] [address] Care Team Providers Care Conditioning Coach Name Role Phone Roxanna Acosta MD Primary Care Provider Encounter Details Date Type Department Care Team (Late Contact Info) Description 04/06/2024 External Device Data STL ABSTRACTION Provider, Abstract [...] Upcoming Encounters Date Type Department Care Team ([facility] Contact Info) Description 08/23/2024 11:15 AM DISTRICT REPRESENTATIVE Office Visit [facility] Oncology and Hematology - [address] [facility] [address] [place] [address] Michele Smith MD [address] [facility] [address] [place] [address] documented as of this encounter Visit Diagnoses Not on filedocumented in this encounter Care Teams Conditioning Coach Relationship Specialty Start Date End Date Roxanna Acosta MD PCP - General Family Practice 02/19/12 documented as of this encounter
--- OUTSIDE RECORDS SUMMARY | 2024-07-24 09:41 | XMS_ITS | Encounter Summary ---
Author Organization [facility] Address [address] [address] Care Team Providers Care Dry Color Mixer Name Role Phone Tracey Patel MD Primary Care Provider [phone] Reason for Referral * Radiology Services (Routine) - Closed Specialty Diagnoses / Procedures Referred By Contac t Referred To Contact Ultrasound Diagnoses Cyst of right ovary Procedures US PELVIS WITH TRANSVAG NON OB Tracey Patel MD [address] [place] [address] [facility] [address] [place] [id number] Referral ID Status Reason Start Date Expiration Date Visits Re quested Visits Authorized [id number] Closed 06/17/2017 12/14/2017 1 1 TIONAL PLACEMENT SPECIALIST Reason for Visit * Reason Comments Establish Care Physical Encounter Details Date Type Department Care Team (Latest Contact Info) Description 06/17/2017 9:30 AM VOCATIONAL PLACEMENT SPECIALIST Office Visit [facility] - Family Medicine [address] [place] [phone] Tracey Patel MD [address] [place] [address] Annual physical exam (Primary Dx); Chronic bilateral low back pain without sciatica; Polyarthralgia; Well woman exam with routine gynecological exam; Cyst of right ovary Social History Tobacco Use Types Packs/Day Years [...] Sign Reading Time Taken Comments Blood Pressure 115/73 06/17/2017 9:20 AM VOCATIONAL PLACEMENT SPECIALIST Pulse 84 06/17/2017 9:20 AM VOCATIONAL PLACEMENT SPECIALIST Temperature 36.8 ??C (98.3 ??F) 06/17/2017 9:20 AM CS T Respiratory Rate - - Oxygen Saturation - - Inhaled Oxygen Concentration - - Weight 68.6 kg (151 lb 3.2 oz) 06/17/2017 9:20 A M VOCATIONAL PLACEMENT SPECIALIST Height 157.5 cm (5' 2 ) 06/17/2017 9:20 AM VOCATIONAL PLACEMENT SPECIALIST Body Mass Index 27.65 06/17/2017 9:20 AM VOCATIONAL PLACEMENT SPECIALIST documented in this encounter Progress Notes * Kathy Díaz MA - 06/19/2017 1:27 PM CST Patient notified and verbalized understanding. TIONAL PLACEMENT SPECIALIST * Kathy Díaz MA - 06/19/2017 10:58 AM CST Left message for patient to return phone call. TIONAL PLACEMENT SPECIALIST * Tracey Patel MD - 06/19/2017 10:46 AM CST Let her know that her blood work all looked okay other than that her vitamin-D level is a little low. I recommend she take an [id number]-[id number] supplement of vitamin D3, 2000 IU daily to help boost her levels. Her tests for autoimmune disease were negative. I recommend she get the pelvic ultrasound as soon as possible as I agree with her that her back pain may be of a gynecologic origin. TIONAL PLACEMENT SPECIALIST * Tracey Patel MD - 06/17/2017 9:46 AM CST Images from the original note were not included. SUBJECTIVE: Rosalba Jimenez is a 37 y.o. female that presents for: Establishment of care with me for a physical. She has not seen a doctor in years. Her children see the car trimmer in the office here. Patient Active Problem List Diagnosis Date Noted ??? Cyst of right ovary 06/17/2017 Priority: Not Prioritized There is no immunization history on file for this patient. No outpatient prescriptions prior to visit. No facility-administered medications prior to visit. No past medical history on file. Family History Problem Relation Age of Onset ??? Other Mother had hysterectomy due to menorrhagia ??? Other Sister endometriosis Social History Social History ??? Marital status: [...] Surgical History: Procedure Laterality Date ??? Tonsillectomy 2001 No Known Allergies REVIEW [...] discharge. Menses: Regular menses, no abnormal bleeding. Uses natural family planning, youngest child is 8. Hematologic/lymphatic: No history of anemia. No abnormal bleeding or bruising. Musculoskeletal: No myalgia, swelling, weakness. She has had intermittent low back pain for about 5years, pain free in between episodes, no hx trauma, when pain occurs it is usually at night right before menses but has menses without pain at times. She'll get episodes of pain 9 out of 12 menstrualcycles. Pain is usually starts up to a week before cycle and will stop by the first day of menses. Had tried numerous OTC meds and Rx meds in the past with no relief. A previous PCP had tried PT withno improvement but she was pain free by the time she went to PT. She denies any radiation of pain or paresthesias or weakness. She denies loss of bowel or bladder control or saddle anesthesia with episodes. She denies postcoital bleeding or dyspareunia. She will occasionally get pains in her hips or shoulders but has not been too concerned about these pains. Neurological: Stable gait, no numbness, tingling, syncope, dizziness. Behavioral/Psych: No sleep disturbance, memory changes, depression. Endocrine: No fatigue or weight change. ROS negative except as mentioned in ROS or in HPI She did not recall having any imaging studies about her back but I found in Care Everywhere a lumbar x-ray and pelvic ultrasound from 5 years ago. XR LUMBAR SPINE 4+ VW02/19/2012 [employer]- [facility] and [facility]ASH Result Impression IMPRESSION:? Negative exam of the lumbar spine Result Narrative LUMBAR SPINE, five views HISTORY:?Back Pain FINDINGS:?The lumbar spine is normally aligned without evidence of subluxation.?The vertebral body heights are preserved.?No fractures and no evidence of spondylolysis are identified.? US PELVIS + TRANSVAG NON OB01/16/2012 [employer]- [facility] and [facility] Result Impression IMPRESSION: Complex cystic mass, right ovary. Prominent endometrial thickness is likely related to the stage of menstrual cycle. Result Narrative EXAM: TRANSABDOMINAL AND TRANSVAGINAL PELVIC ULTRASOUND, 01/16/2012 INDICATION: Pelvic pain and urinary frequency. FINDINGS: Transabdominally the uterus is anteverted and appears normal size at 9.9 x 4.3 x 5.8 cm. Endometrial thickness is prominent at 1.2 cm and shows some heterogeneity. Limited views of the ovaries demonstrate a right ovarian cyst at 5.6 cm. Transvaginal pelvic ultrasound shows endometrial thickness at 1.2 cm, without the heterogeneity seen on transabdominal ultrasound. There is no evidence of fluid, mass or polyp. The right ovary is enlarged and demonstrates a large complex cyst. The cyst measures 4.3 cm and shows several faint internal echoes and peripheral nodular tissue. Overall the right ovary measures 5.2 x 4.7 x 5.1 cm. The left ovary is normal. OBJECTIVE: BP 115/73 Pulse 84 Temp 98.3 ??F (Oral) Wt 68.6 kg (151 lb 3.2 oz) LMP 05/19/2017 (Approximate) BMI 27.65 kg/m2 FiO2: Wt Readings from Last 3 Encounters: 06/17/17 68.6 kg (151 lb 3.2 oz) General Appearance: alert, cooperative, no distress, oriented to person, place, and time, well appearing Mental Status: alert, oriented to person, place, [...] focal findings or movement disorder noted. Musculoskeletal: Lumbosacral spine area reveals mild-moderate tenderness and no spasm. Painful and reduced LS ROM noted. Straight leg raise is negative bilaterally. DTR's, motor strength and sensation normal, including heel and toe gait. Peripheral pulses are palpable. Hips and knees have full range of motion without pain. I am unable to reproduce her pain with exam. ASSESSMENT: Annual physical exam - Plan: CBC W AUTO DIFFERENTIAL, COMPREHENSIVE METABOLIC PANEL, LIPID PROFILE W TCHOL/HDL, TSH, VITAMIN D 25-HYDROXY, URINALYSIS - POINT OF CARE Chronic bilateral low back pain without sciatica - Plan: VITAMIN D 25-HYDROXY, URINALYSIS - POINT OF CARE, GEO BLOOD SCREEN W/REFLEX TITER, C-REACTIVE PROTEIN, RHEUMATOID FACTOR BLOOD QUANTITATIVE Polyarthralgia - Plan: GEO BLOOD SCREEN W/REFLEX TITER, C-REACTIVE PROTEIN, RHEUMATOID FACTOR BLOODQUANTITATIVE Well woman exam with routine gynecological exam - Plan: AMB REFERRAL TO OB-WOOD TANK BUILDER Cyst of right ovary - Plan: AMB REFERRAL TO OB-WOOD TANK BUILDER, US PELVIS WITH TRANSVAG NON OB PLAN: There are no discontinued medications. Orders Placed This Encounter ??? US PELVIS WITH TRANSVAG NON OB Standing Status: Future Standing Expiration Date: 06/18/2018 Order Specific Question: Is the patient ? Answer: No Order Specific Question: Exam to be performed? Answer: Per Radiologist protocol ??? CBC W AUTO DIFFERENTIAL ??? COMPREHENSIVE METABOLIC PANEL ??? LIPID PROFILE W TCHOL/HDL ??? TSH ??? VITAMIN D 25-HYDROXY ??? GEO BLOOD SCREEN W/REFLEX TITER ??? C-REACTIVE PROTEIN ??? RHEUMATOID FACTOR BLOOD QUANTITATIVE ??? AMB REFERRAL TO OB-WOOD TANK BUILDER Standing Status: Future Standing Expiration Date: 06/17/2018 Referral Priority: Routine Referral Type: Evaluate Referral Reason: Specialty Services Required Referred to Provider: Monie Yusuf, DO Number of Visits Requested: 1 ??? URINALYSIS - POINT OF CARE ??? tiZANidine (ZANAFLEX) 4 MG tablet Sig: Take 1 tablet by mouth nightly as needed for Muscle Spasms Dispense: 30 tablet Refill: 0 Routine age-appropriate anticipatory guidance was given. She declined flu shot today. She is advised to get a pelvic ultrasound. I saw in her medical records through Care everywhere that she had a complex right ovarian cyst. She did not recall this. She will get a pelvic ultrasound and will follow up with OBGYN. She is due to see OBGYN for well-woman exam regardless. Will check labs today and call with results. Will screen for autoimmune diseases. she denies severe dysmenorrhea but the timing of her back pain with menstrual cycle could be endometriosis or due to ovarian pathology. She is advised to discuss this with her OBGYN. In the meantime,we will do a trial of Zanaflex at night. She can take this as needed. She is cautioned of sedation with this. She may take ovmr-[id number] Tylenol and ibuprofen as well. I would hold off on imaging studies on her back at this time as she has no concerning neurologic symptoms and no history of trauma. Consider MRI of lumbar spine if no gynecologic cause of her back pain is found. Follow up: PRN She voiced understanding and agreement with plan. TIONAL PLACEMENT SPECIALIST * Anusha Hargrove - 06/17/2017 9:20 AM CST PHQ-2 : Little interest or pleasure in doing things: Not at all Feeling down, depressed, or hopeless: Not at all TOTAL POINT SCORE: 0 PHQ-9: Little interest or pleasure in doing things: Not at all Feeling down, depressed, or hopeless: Not at all TIONAL PLACEMENT SPECIALIST documented in this encounter Plan of Treatment Not on file documented as of this encounter Procedures Procedure Name Priority Date/Time Associated Diagnosis Comments LIPID PROFILE W TCHOL/HDL Routine 06/17/2017 10:22 AM VOCATIONAL PLACEMENT SPECIALIST Annual physical exam VITAMIN D 25-HYDROXY Routine 06/17/2017 10:22 AM VOCATIONAL PLACEMENT SPECIALIST Annual physical exam Chronic bilateral low back pain without sciatica CBC W AUTO DIFFERENTIAL Routine 06/17/2017 10:22 AM VOCATIONAL PLACEMENT SPECIALIST Annual physical exam COMPREHENSIVE METABOLIC PANEL Routine 06/17/2017 10:22 AM VOCATIONAL PLACEMENT SPECIALIST Annual physical exam TSH Routine 06/17/2017 10:22 AM VOCATIONAL PLACEMENT SPECIALIST Annual physical exam RHEUMATOID FACTOR BLOOD QUANTITATIVE Routine 06/17/2017 10:20 AM VOCATIONAL PLACEMENT SPECIALIST Chronic bilateral low back pain without sciatica Polyarthralgia C-REACTIVE PROTEIN Routine 06/17/2017 10 :20 AM VOCATIONAL PLACEMENT SPECIALIST Chronic bilateral low back pain without sciatica Polyarthralgia GEO BLOOD SCREEN W/REFLEX TITER Routine 06/17/2017 10:20 AM VOCATIONAL PLACEMENT SPECIALIST Chronic bilateral low back pain without sciatica Polyarthralgia URINALYSIS - POINT OF CARE Routine 06/17/2017 Annual physical exam Chronic bilateral low back pain without sciatica documented in this encounter Results * US PELVIS WITH TRANSVAG NON OB (07/01/2017 10:57 AM VOCATIONAL PLACEMENT SPECIALIST) Anatomical Region Laterality Modality Pelvis Ultrasound 07/01/2017 11:0 6 AM VOCATIONAL PLACEMENT SPECIALIST Impressions 07/01/2017 11:12 AM VOCATIONAL PLACEMENT SPECIALIST RIGHT FOLLICLE CYSTS, OTHERWISE UNREMARKABLE. Edited by Jennifer Stockton on 07/01/2017 11:12 AM Narrative 07/01/2017 11:12 AM VOCATIONAL PLACEMENT SPECIALIST ULTRASOUND PELVIS TRANSABDOMINAL ULTRASOUND PELVIS TRANSVAGINAL ULTRASOUND [...] AM Tracey Patel MD US ORDERABLES * (ABNORMAL) VITAMIN D 25-HYDROXY (06/17/2017 10:22 AM VOCATIONAL PLACEMENT SPECIALIST) Vitamin D, 25 Hydroxy 22.79(L) 30 - 100 ng/mL [facility] ACCOUNT BILL Comment: Vitamin D Status: ?Deficiency ? <20 ? ng/mL ?Insufficiency ?? 20-30 ??ng/mL ?Sufficiency ? 30-100 ng/mL ?Toxicity ? >100 ?ng/mL FASTING Blood BLOOD SPECIMEN / Unknown 06/17/2017 10:22 AM VOCATIONAL PLACEMENT SPECIALIST 06/17/2017 Narrative Resulting Agency Comment [address] ??[facility] [phone] Tracey Patel MD LAB - CHEMISTRY LEXX RAMIREZ Performing Organization Address City/[facility]/ZIP Co de Phone Number [facility] ACCOUNT BILL [address] [place] [address] * TSH (06/17/2017 10:22 AM VOCATIONAL PLACEMENT SPECIALIST) TSH 2.85 0.358 - 3.740 uIU/mL [facility] ACCOUNT BILL Comment:FASTING Blood BLOOD SPECIMEN / Unknown 06/17/2017 10:22 AM VOCATIONAL PLACEMENT SPECIALIST 06/17/2017 Narrative Resulting Agency Comment [facility] [address] ??[facility] [phone] Tracey Patel MD LAB - CHEMISTRY LEXX RAMIREZ Performing Organization Address City/[facility]/ZIP Co de Phone Number [facility] ACCOUNT BILL [address] [place] [address] * LIPID PROFILE W TCHOL/HDL (06/17/2017 10:22 AM VOCATIONAL PLACEMENT SPECIALIST) Cholesterol 185 <200 mg/dL [facility] ACCOUNT BILL Triglycerides 39 <150 mg/dL [facility] ACCOUNT BILL HDL Cholesterol 83 >40 mg/dL [facility] ACCOUNT BILL VLDL Calculated 8 <=30 mg/dL [facility] ACCOUNT BILL LDL Calculated 94 <130 mg/dL [facility] ACCOUNT BILL Comment:LDL/HDL RATIO BLOOD ([facility]) 1.1 <5.0 Cholesterol/HDL Ratio 2.2 <4.5 [facility] ACCOUNT BILL Comment:FASTING Blood BLOOD SPECIMEN / Unknown 06/17/2017 10:22 AM VOCATIONAL PLACEMENT SPECIALIST 06/17/2017 Narrative Resulting Agency Comment [facility] [address] ??[place] [phone] Tracey Patel MD LAB - CHEMISTRY LEXX RAMIREZ [facility] ACCOUNT BILL [address] [place] [address] * (ABNORMAL) COMPREHENSIVE METABOLIC PANEL (06/17/2017 10:22 AM VOCATIONAL PLACEMENT SPECIALIST) Glucose 79 74 - 106 mg/dL [facility] [...] BLOOD SPECIMEN / Unknown 06/17/2017 10:22 AM VOCATIONAL PLACEMENT SPECIALIST 06/17/2017 Narrative Resulting Agency Comment [facility] [address] ??[place] [phone] Tracey Patel MD LAB - CHEMISTRY LEXX RAMIREZ [facility] ACCOUNT BILL [address] [place] [address] * (ABNORMAL) CBC W AUTO DIFFERENTIAL (06/17/2017 10:22 AM VOCATIONAL PLACEMENT SPECIALIST) WBC 4.1(L) 4.4 - 10.7 x10E9/L [facility] [...] BLOOD SPECIMEN / Unknown 06/17/2017 10:22 AM VOCATIONAL PLACEMENT SPECIALIST 06/17/2017 Narrative Resulting Agency Comment [facility] [address] ??[place] [phone] Tracey Patel MD LAB - HEMATOLOGY ORD ERAJANNETTE [facility] ACCOUNT BILL [address] [place] [address] * RHEUMATOID FACTOR BLOOD QUANTITATIVE (06/17/2017 10:20 AM VOCATIONAL PLACEMENT SPECIALIST) Rheumatoid Factor <10 <15 IU/mL [facility] ACCOUNT BILL Comment:FASTING Blood BLOOD SPECIMEN / Unknown 06/17/2017 10:20 AM VOCATIONAL PLACEMENT SPECIALIST 06/17/2017 Narrative Resulting Agency Comment [address] ??[facility] [phone] Tracey Patel MD LAB - CHEMISTRY ORDOly RAMIREZ Performing Organization Address City/[facility]/ZIP Co de Phone Number [facility] ACCOUNT BILL [address] [place] [address] * C-REACTIVE PROTEIN (06/17/2017 10:20 AM VOCATIONAL PLACEMENT SPECIALIST) C-Reactive Protein <0.29 <0.30 mg/dL [facility] ACCOUNT BILL Comment:FASTING Blood BLOOD SPECIMEN / Unknown 06/17/2017 10:20 AM VOCATIONAL PLACEMENT SPECIALIST 06/17/2017 Narrative Resulting Agency Comment [facility] [address] ??[place] [phone] Tracey Patel MD LAB - CHEMISTRY LEXX RAMIREZ [facility] ACCOUNT BILL [address] [place] [address] * GEO BLOOD SCREEN W/REFLEX TITER (06/17/2017 10:20 AM VOCATIONAL PLACEMENT SPECIALIST) GEO Negative Negative [facility] ACCOUNT BILL Comment:FASTING Blood BLOOD SPECIMEN / Unknown 06/17/2017 10:20 AM VOCATIONAL PLACEMENT SPECIALIST 06/17/2017 Narrative Resulting Agency Comment [facility] [address] [facility] ??[facility] [phone] Tracey Patel MD LAB - CHEMISTRY LEXX RAMIREZ [facility] ACCOUNT [place]ILL [place] [address] * URINALYSIS - POINT OF CARE (06/17/2017) Clarity UA POCT clear Color UA POCT yellow Leukocyte UA negative Negative Nitrite UA POCT negative Negative Urobilinogen UA 0.2 0.1 - 1.0 Protein UA POCT negative Negative pH UA 6.0 5.0 - 8.0 pH units Blood UA negative Negative Specific [place] UA POCT 1.010 1.002 - 1.030 Ketone UA negative Negative Bilirubin UA POCT negative Negative Glucose UA negative Negative Urine URINE / Unknown 06/17/2017 Tracey Patel MD LAB - POINT OF CARE ORDERABLES documented in this encounter Visit Diagnoses Diagnosis Annual physical exam- Primary Routine general medical examination at a health care facility Chronic bilateral low back pain without sciatica Polyarthralgia Pain in joint, multiple sites Well woman exam with routine gynecological exam Routine gynecological examination Cyst of right ovary Other and unspecified ovarian cyst Cyst of right ovary Other and unspecified ovarian cyst documented in this encounter Care Teams Dry Color Mixer Relationship Specialty Start Date End Date Tracey Patel MD PCP - General Family Medicine 06/13/17 documented as of this encounter
--- OUTSIDE RECORDS SUMMARY | 2024-07-24 09:41 | XMS_ITS | Encounter Summary ---
Author Organization [facility] Address [address] [place] [address] Care Team Providers Care Compliance Review Officer Name Role Phone Tracey Patel MD Primary Care Provider [phone] Reason for Visit * Reason Onset Date Comments MEDICATION REFILL 05/05/2018 Encounter Details Date Type Department Care Team (Late st Contact Info) Description 05/05/2018 Refill [facility] Medical [facility] - Family Medicine [id number] [place] [phone] Tracey Patel MD [address] [place] [phone] MEDICATION REFILL Social History Tobacco Use Types [...] encounter Miscellaneous Notes * Telephone Encounter - Bere Martinez MA - 05/05/2018 3:57 PM CDT Patient informed * Telephone Encounter - Tracey Patel MD - 05/05/2018 11:15 AM CDT In that case, let her know that the refill has been sent in for the 20 mg dose, so she will take just 1 capsule daily of this dose. * Telephone Encounter - Abena Sanchez - 05/05/2018 9:21 AM CDT Call in from patient stating she has increased the medication to twice a day except on the weekends. Requested Prescriptions Pending Prescriptions Disp Refills ??? amphetamine-dextroamphetamine XR 24hr (ADDERALL XR) 10 MG capsule 30 capsule 0 Sig: Take 1 capsule by mouth every morning May increase to 2 caps daily after 1 week if needed. Last refill: 04/16/2018 Last OV: 04/16/2018 documented in this encounter Plan of Treatment Not on file documented as of this encounter Visit Diagnoses Not on filedocumented in this encounter Care Teams Compliance Review Officer Relationship Specialty Start Date End Date Tracey Patel MD PCP - General Family Medicine 06/13/17 documented as of this encounter
--- OUTSIDE RECORDS SUMMARY | 2024-07-24 09:41 | XMS_ITS | Encounter Summary ---
Author Organization [facility] Address [address] [facility] [place] [address] Care Team Providers Care Cupola Man Name Role Phone Tracey Patel MD Primary Care Provider [phone] Reason for Visit * Reason Onset Date Comments MEDICATION REFILL 01/27/2019 Encounter Details Date Type Department Care Team (Late st Contact Info) Description 01/27/2019 Refill [facility] Medical [facility] - Family Medicine [id number] [place] [phone] [place] [address] [place] [address] MEDICATION REFILL Social History Tobacco Use Types [...] Telephone Encounter - Tracey Patel MD - 01/27/2019 9:55 AM CDT Let her know the refill has been sent in. * Telephone Encounter - Silva Haider MA - 01/27/2019 8:48 AM CDT Rosalba Jimenez No Known Allergies Requested Prescriptions Pending Prescriptions Disp Refills ??? amphetamine-dextroamphetamine XR 24hr (ADDERALL XR) 25 MG capsule 30 capsule 0 Sig: Take 1 capsule by mouth every morning Earliest Fill Date: 01/27/19 Last Refill: 12-29-18 Last Office Visit: 11-30-18 documented in this encounter Plan of Treatment Not on file documented as of this encounter Visit Diagnoses Not on filedocumented in this encounter Care Teams Cupola Man Relationship Specialty Start Date End Date Tracey Patel MD PCP - General Family Medicine 06/13/17 documented as of this encounter
--- OUTSIDE RECORDS SUMMARY | 2024-07-24 09:41 | XMS_ITS | Encounter Summary ---
Author Organization [facility] Address [address] [facility] [place] [address] Care Team Providers Care Cardiology Tech Name Role Phone Tracey Patel MD Primary Care Provider [phone] Encounter Details Date Type Department Care Team (Late st Contact Info) Description 05/06/2019 Patient Message [facility] - Family Medicine [id number] [place] [phone] Tracey Patel MD [address] [place] [phone] referrals Social History Tobacco Use Types Packs/Day Years [...] * Telephone Encounter - Anusha Hargrove - 05/07/2019 8:28 AM CDT Sent patient referral information via my chart, referral information to the Primer Inserting Machine Adjuster [facility] [phone] [facility] [phone]. * Telephone Encounter - Tracey Patel MD - 05/06/2019 4:58 PM CDT There is referral to an instrument and controls technician and a referral to a maxillofacial surgeon on the printer. Please send her the contact information for the specialists. documented in this encounter Plan of Treatment Not on file documented as of this encounter Visit Diagnoses Diagnosis TMJ (temporomandibular joint disorder)- Primary Temporomandibular joint disorders, unspecified Food allergy Other adverse food reactions, not elsewhere classified documented in this encounter Care Teams Cardiology Tech Relationship Specialty Start Date End Date Tracey Patel MD PCP - General Family Medicine 06/13/17 documented as of this encounter
--- OUTSIDE RECORDS SUMMARY | 2024-07-24 09:41 | XMS_ITS | Encounter Summary ---
Author Organization [facility] Address [address] [place] [address] Care Team Providers Care Automotive Fuel Systems Converter Name Role Phone Tracey Patel MD Primary Care Provider [phone] Reason for Visit * Reason Onset Date Comments MEDICATION REFILL 07/16/2019 Encounter Details Date Type Department Care Team (Late st Contact Info) Description 07/16/2019 Refill [facility] Medical [facility] - Family Medicine [id number] [place] [phone] Tracey Patel MD [address] [place] [phone] MEDICATION REFILL Social History Tobacco Use [...] Telephone Encounter - Tracey Patel MD - 07/16/2019 12:51 PM CST Let her know the refill has been sent in. OGEOLOGIST * Telephone Encounter - Amanda Casillas - 07/16/2019 12:13 PM HYDROGEOLOGIST Rosalba Jimenez No Known Allergies Requested Prescriptions Pending Prescriptions Disp Refills ??? amphetamine-dextroamphetamine XR 24hr (ADDERALL XR) 30 MG capsule 30 capsule 0 Sig: Take 1 capsule by mouth every morning Last Refill: 06/11/19 Last Office Visit: 06/28/2019 OGEOLOGIST documented in this encounter Plan of Treatment Not on file documented as of this encounter Visit Diagnoses Not on filedocumented in this encounter Care Teams Automotive Fuel Systems Converter Relationship Specialty Start Date End Date Tracey Patel MD PCP - General Family Medicine 06/13/17 documented as of this encounter
--- OUTSIDE RECORDS SUMMARY | 2024-07-24 09:41 | XMS_ITS | Encounter Summary ---
Author Organization [facility] Address [address] [place] [address] Care Team Providers Care Mig Tig Welder Name Role Phone Roxanna Acosta MD Primary Care Provider Encounter Details Date Type Department Care Team (Late Contact Info) Description 03/16/2024 External Device Data STL ABSTRACTION Provider, Abstract [...] Upcoming Encounters Date Type Department Care Team ([facility] Contact Info) Description 08/23/2024 11:15 AM SLITTER CREASER SLOTTER HELPER Office Visit [facility] Oncology and Hematology - [place] [address] [place] [address] Michele Smith MD [address] [facility] [address] [place] [address] documented as of this encounter Visit Diagnoses Not on filedocumented in this encounter Care Teams Mig Tig Welder Relationship Specialty Start Date End Date Roxanna Acosta MD PCP - General Family Practice 02/19/12 documented as of this encounter
--- OUTSIDE RECORDS SUMMARY | 2024-07-24 09:41 | XMS_ITS | Clinical Summary ---
Author Organization [facility] Address [address] [place] [address] Phone Care Team Providers Care Business Banking Manager Name Role Phone Roxanna Acosta MD Primary Care Provider Allergies Active Allergy Reactions Criticality Noted Date Comments Benadryl Decongestant Other (See Comments) 01/03 Feel bad physically and mentally Medications Medication Sig Dispensed Refills Start Date End Date Status ibuprofen (MOTRIN) 600 mg tablet Take 1 Tablet (600 mg) by mouth every 6 hours as needed for Pain, Mild. 20 Tablet 09/23/2017 Active amphetamine-dextroamp hetamine (ADDERALL XR) 20 mg Extended Release 24 hour capsule Take 20 mg by mouth. 10/06/2018 Active tranexamic acid (LYSTEDA) 650 mg Tablet tablet Take 2 Tablets (1,300 mg) by mouth 3 times daily. 30 Tablet 3 12/08/2023 Active Active Problems Problem Noted Date Diagnosed Date RIN (iron deficiency anemia) 06/19/2023 AUB, anemia- PRBC, iron 06/16/2023 Acute blood loss anemia 06/16/2023 Status post LEEP (loop elect rosurgical excision procedure) of cervix 03/24/2018 HGSIL (high grade squamous i ntraepithelial lesion) on Pap smear of cervix 08/29/2017 S/P tonsillectomy 02/19/2012 Anxiety state, unspecified 11/03/2006 Resolved Problems Problem Noted Date Diagnosed Date Resolved Date Well woman exam with routine gynecological exam 03/05/2010 01/16/2012 Induction, O pos, GBS neg 08/16/2009 Acute serous otitis media 05/01/2006 Cellulitis and abscess of trunk 12/09/2005 01/16/2012 Encounters Date Type Department Care Team Description 05/18/2024 Orders Only [facility] Oncology and Hematology - [address] [place] [address] Michele Smith MD 05/17/2024 10:00 AM CDT Office Visit [facility] Oncology and Hematology - [address] [place] [address] Michele Smith MD Iron deficiency anemia due to chronic blood loss (Primary Dx) 05/17/2024 Orders Only [facility] Oncology and Hematology - [address] [place] [address] Michele Smith MD 05/14/2024 Orders Only [facility] Oncology and Hematology - [address] [place] [address] Michele Smith MD Iron deficiency anemia due to chronic blood loss (Primary Dx) 05/11/2024 External Device Data STL ABSTRACTION Provider, Abstract 04/27/2024 External Device Data STL ABSTRACTION Provider, Abstract from Last 3 Months Immunizations Name Administration Dates Next Due INFLUENZA VACCINE QUADRIVALENT 6 MOS UP PF IM Family History Medical History Relation Name Comments No Known Problems Brother 3 brothers No Known Problems Child 1 No Known Problems Child 2 No Known Problems Child 3 No Known Problems Child 4 Prostate Cancer Father Melanoma Mother No Known Problems Sister 6 sisters Relation Name Status Comments Brother 3 brothers Alive Child 1 Alive Child 2 Alive Child 3 Alive Child 4 Alive Father Alive Mother Alive Sister 6 sisters Alive Social History Tobacco Use Types Packs/Day Years Used Date Smoking Tobacco: Never Smokeless Tobacco: Never Tobacco Cessation:Counseling Given: Not Answered Alcohol Use Standard Drinks/Week Comments Yes 0 [...] Sign Reading Time Taken Comments Blood Pressure 109/70 05/17/2024 10:02 AM CDT Pulse 84 05/17/2024 10:02 AM CDT Temperature 36.8 ??C (98.2 ??F) 05/17/2024 10:02 AM C DT Respiratory Rate 16 05/17/2024 10:02 AM CDT Oxygen Saturation 98% 05/17/2024 10:02 AM CDT Inhaled Oxygen Concentration - - Weight 66.2 kg (146 lb) 05/17/2024 10:02 AM CDT Height 157.5 cm (5' 2 ) 01/26/2024 2:44 PM CDT Body Mass Index 26.7 01/26/2024 2:44 PM CDT Plan of Treatment Upcoming Encounters Date Type Department Care Team (Late st Contact Info) Description 08/23/2024 11:15 AM CURB SETTER HELPER Office Visit [facility] Oncology and Hematology [facility] [address] [place] [address] [facility] [address] [place] [address] Michele Smith MD [address] [facility] [address] [place] [address] Health Maintenance Due Date Last Done Comments Pre-Diabetes and Diabetes Screening 1980 DTAP/TDAP/TD VACCINES (1 - Tdap) 1999 HEPATITIS B VACCINES (1 of 3 - 19+ 3-dose series) 1999 BREAST CANCER SCREENING 2020 07/17/2017 INFLUENZA VACCINE (#1) 2024 06/17/2023, 2019 CERVICAL CANCER SCREENING 03/04/20252021, 11/10/2020, 09/29/2019, Additional history exists HPV VACCINES Aged Out No longer eligi ble based on patient's age to complete this topic PNEUMOCOCCAL VACCINE 0-64 YEARS Aged Out No longer eligible based on patient's age to complete this topic Procedures Procedure Name Priority Date/Time Associated Diagnosis Comments COMPREHENSIVE METABOLIC PANEL Routine 05/14/2024 3:41 PM CDT CBC WITH DIFFERENTIAL Routine 05/14/2024 3:23 PM CDT COMPREHENSIVE METABOLIC PANEL Routine 05/14/2024 10:00 AM CDT CERV/VAG CYTO AGE BASED SCREEN PAP Routine 11/10/2020 1:42 PM CDT Well woman exam with routine gynecological exam from Last 3 Months or Most Recently Relevant to Health Maintenance Results * COMPREHENSIVE METABOLIC PANEL (05/14/2024 3:41 PM CDT) Only the most recent of2 resultswithin the time period is included. Blood Michele Smith MD CHEMISTRY ORDERABLES * CBC WITH DIFFERENTIAL (05/14/2024 3:23 PM CDT) Blood Michele Smith MD HEMATOLOGY ORDERABLE S * CERV/VAG CYTO AGE BASED SCREEN PAP (11/10/2020 1:42 PM CDT) COMMENT (PAP): SEE COMMENT 2:34 PM CDT [facility] Comment: This order for age-based cervical cancer and STI screening follows ACOG guidelines(PB 168, 140, NHS028). See individual assays for performing site location. CLINICAL INFORMATION Information not provided 11/16/2020 2:34 PM CDT [facility] LAST MENSTRUAL PERIOD INFORMATION NOT PROVIDED 11/16/2020 2:34 PM CDT [facility] PREV PAP: INFORMATION NOT PROVIDED 11/16/2020 2:34 PM CDT [facility] PREV BX: INFORMATION NOT PROVIDED 11/16/2020 2:34 PM CDT [facility] SOURCE Endocervix 11/16/2020 2:34 PM CDT [facility] ADEQUACY: SEE COMMENT 11/16/2020 2:34 PM CDT [facility] Comment: Satisfactory for evaluation. Endocervical/transformation zone component present. Age and/or menstrual status not provided PAP INTERP Negative for intraepithelial lesion or malignancy. 11/16/2020 2:34 PM CDT [facility] COMMENT This Pap test has been evaluated with computer assisted technology. 11/16/2020 2:34 PM CDT [facility] ROENTGENOLOGIST: SEE COMMENT 2020 2:34 PM CDT [facility] Comment: ASHLEY, CT(ASCP) CT Screening location: [facility] [address] [place] [address] REVIEW ROENTGENOLOGIST: SEE COMMENT 11/16/2020 2:34 PM CDT [facility] Comment: KMS, CT(ASCP) CT Screening location: [place] [address] Administration JUANY Bowser [facility] EXPLANATORY NOTE SEE COMMENT 2:34 PM CDT [facility]FERENCE [facility] Comment: EXPLANATORY NOTE: The Pap is a screening test for cervical cancer. It is not a diagnostic test and is subject to false negative and false positive results. It is most reliable when a satisfactory sample, regularly obtained, is submitted with relevant clinical findings and history, and when the Pap result is evaluated along with historic and current clinical information. HPV E6/E7 Not Detected Not Detected 11/16/2020 2:34 PM CDT [facility] Comment: Methodology: Senior Mechanical Development Engineer-Mediated Amplification This assay detects E6/E7 viral messenger RNA (mRNA) from 14 high-risk HPV types (16,18,31,33,35,39,45,51,52,56,58,59,66,68). The analytical performance characteristics of this assay have been determined by [employer]. The modifications have not been cleared or approved by the FDA. This assay has been validated pursuant to the CLIA regulations and is used for clinical purposes. For additional information, please refer to http://[email or web address]/faq/XAY770t3 (This link if provided for information/ educational purposes only.) Genital SWAB OF ENDOCERVIX / Unknown Collection / Unknown 11/10/2020 1:42 PM CDT 11/10/2020 9:41 PM CDT Narrative [facility] - 11/16/2020 2:34 PM CDT Performing Organization Information: ?Site ID: [id number] ?Name: [facility] ?Address: [address] [address] ?Director: Robby Steven D.O., MPH ?Site ID: ?Name: [facility] ?Address: [facility] [place] [address] ?Director: Parth Herrera Enrique Mckinney MD PATHOLOGY/CYTOLOGY O RDERAJANNETTE [facility] [phone] from Last 3 Months or Most Recently Relevant to Health Maintenance Advance Directives For more information, please contact: [phone] * Full Code (Latest Code Status on File) Date Activated Date Inactivated Comments 06/16/2023 8:53 PM 06/17/2023 3:38 PM * Full Code Date Activated Date Inactivated Comments 03/24/2018 7:50 AM 03/24/2018 12:19 PM * Full Code Date Activated Date Inactivated Comments 09/23/2017 9:31 AM 09/23/2017 2:10 PM * Full Code Date Activated Date Inactivated Comments 08/16/2009 7:12 AM 08/18/2009 1:11 PM * Full Code Date Activated Date Inactivated Comments 08/15/2009 11:26 PM 08/16/2009 7:12 AM Care Teams Business Banking Manager Relationship Specialty Start Date End Date Roxanna Acosta MD PCP - General Family Practice 02/19/12
--- OUTSIDE RECORDS SUMMARY | 2024-07-24 09:41 | XMS_ITS | Encounter Summary ---
Author Organization [facility] Address [address] [place] [address] Care Team Providers Care Training Professional Name Role Phone Roxanna Acosta MD Primary [...] Encounters Date Type Department Care Team ([facility] Contact Info) Description 08/23/2024 11:15 AM MANAGER SERVICING Office Visit [facility] Oncology and Hematology - [place] [address] [place] [address] Michele Smith MD [address] [facility] [address] [place] [address] documented as of this encounter Visit Diagnoses Not on filedocumented in this encounter Care Teams Training Professional Relationship Specialty Start Date End Date Roxanna Acosta MD PCP - General Family Practice 02/19/12 documented as of this encounter
--- OUTSIDE RECORDS SUMMARY | 2024-07-24 09:41 | XMS_ITS | Encounter Summary ---
Author Organization [facility] Address [address] [facility] [place] [address] Care Team Providers Care Sebd Teacher Name Role Phone Tracey Patel MD Primary Care Provider [phone] Reason for Visit * Reason Comments Attention Problem Encounter Details Date Type Department Care Team (Latest Contact Info) Description 04/16/2018 1:15 PM CDT Office Visit [facility] - Family Medicine [id number] [place] [phone] Tracey Patel MD [address] [place] [phone] Attention deficit hyperactivity disorder (ADHD), predominantly inattentive type (Primary Dx) Social History Tobacco Use Types Packs/Day Years [...] Sign Reading Time Taken Comments Blood Pressure 107/71 04/16/2018 1:20 PM CDT Pulse 77 04/16/2018 1:20 PM CDT Temperature 37.2 ??C (98.9 ??F) 04/16/2018 1:20 PM CD T Respiratory Rate - - Oxygen Saturation - - Inhaled Oxygen Concentration - - Weight 64.6 kg (142 lb 6.4 oz) 04/16/2018 1:20 P M CDT Height 157.5 cm (5' 2 ) 04/16/2018 1:20 PM CDT Body Mass Index 26.05 04/16/2018 1:20 PM CDT documented in this encounter Patient Instructions * Patient Instructions* Tracey Patel MD - 04/16/2018 1:55 PM CDT ADHD in Adults WHAT YOU NEED TO KNOW: What is attention deficit hyperactivity disorder (ADHD)? ADHD is a condition that affects behavior.You may be overactive and have a short attention span. ADHD interferes with how you function in your daily activities at work, school, or home. ADHD may also cause you to have problems getting along with other people. What increases my risk for ADHD? ADHD usually starts during childhood and may continue into adulthood. The following may increase your risk for ADHD: ?? Being born prematurely, or being male ?? A family history of ADHD ?? Cigarette, alcohol, or illegal drug use by your mother when she was with you ?? Other learning or memory problems, depression, Tourette syndrome, or another condition that affects how you think ?? Exposure to toxic chemicals, such as lead in paint ?? A head injury What are the signs and symptoms of ADHD? ADHD has 2 main types, based on signs and symptoms. You may have a combination of the 2 main types. A combination is the most common type of ADHD. You may do any of the following: ?? Inattention: ?? Get easily distracted or have a hard time focusing ?? Avoid tasks that need full attention ?? Not follow or easily forget instructions or directions ?? Not listen, or drift away when spoken to ?? Make careless mistakes or lose things ?? Have problems organizing tasks or chores and managing time ?? Hyperactivity and impulsivity: ?? Become easily bored and not finish tasks ?? Talk a lot, interrupt, or intrude into conversations or games ?? Change schools or jobs often ?? Feel stressed, nervous, or worried much of the time ?? Have problems doing quiet activities or sitting still ?? Have an addictive behavior such as use of alcohol or illegal drugs, shopping, eating, or workingtoo much ?? Have more energy than seems normal How is ADHD diagnosed? Healthcare providers use a guide to diagnose ADHD. The symptoms must be present for at least 6 months and not be caused by other problems. These symptoms must be severe enough to cause problems in 2 or more settings. These setting include those at home, work, or school. Some symptoms must be present since you were a child. ADHD is usually diagnosed during childhood. You mayhave had some behavior or concentration problems that were mild as a child but harder to control asan adult. Tell your healthcare provider about any symptoms you had as a child or new or worsening symptoms as an adult. These details can help your healthcare provider create a treatment plan to help you. How is ADHD treated? The goal of treatment is to help you learn how to control your behavior. A combination of therapy and medication is usually most effective for treating ADHD. You may need any of the following: ?? Behavior therapy is used to help you learn to control your actions and improve your behavior. This is done by teaching you how to change your behavior by looking at the results of your actions. ?? Psychotherapy is also called talk therapy. You may have one-on-one visits with a therapist or with others in a group setting. ?? Stimulants help you pay attention, concentrate better, and manage your energy. ?? Antidepressants help decrease or prevent depression or anxiety. It can also be used to treat other behavior problems. What can I do to manage ADHD? ?? Reduce stress. Stress may make your ADHD worse. Ask about ways to calm your body and mind. Thesemay include deep breathing, muscle relaxation, music, and biofeedback. Talk to someone about thingsthat upset you. ?? Learn more about ADHD. The more you know about ADHD, the better you will be able to help yourself. Read books, work with your therapist, and find the support of other people with ADHD. ?? Do not drink alcohol. Alcohol may make your symptoms worse. ?? Create a regular sleep schedule. Sleep can decrease your symptoms. Try to go to bed and wake up at the same times each day. Do not watch TV, use the computer, or play video games before bed. Electronic devices can make it hard for you to sleep or to stay asleep. ?? Eat a variety of healthy foods. Healthy foods can help increase your concentration and make you feel calmer. Healthy foods include fruits, vegetables, low-fat dairy products, lean meats, fish, whole-grain breads, and cooked beans. Ask your healthcare provider if you need to be on a special diet. Call 911 if: ?? You feel like hurting yourself or someone else. When should I seek immediate care? ?? You have a seizure. ?? You have trouble breathing, chest pains, or a fast heartbeat. When should I contact my healthcare provider? ?? You feel you cannot cope at home, work, or school. ?? You have new symptoms since the last time you visited your healthcare provider. ?? Your symptoms are getting worse. ?? You have questions or concerns about your condition or care. CARE AGREEMENT: You have the right to help plan your care. Learn about your health condition and how it may be treated. Discuss treatment options with your caregivers to decide what care you want to receive. You always have the right to refuse treatment. The above information is an health aid only. It is not intended as medical advice for individual conditions or treatments. Talk to your doctor, nurse or pharmacist before following any medical regimen to see if it is safe and effective for you. ?? 2017 [employer] Information is for End User's use only and may not be sold, redistributed or otherwise used for commercial purposes. All illustrations and images included in CareNotes?? are the copyrighted property of [employer] to transform cities, [employer]. or [employer]. documented in this encounter Progress Notes * Tracey Patel MD - 04/17/2018 9:25 AM CDT Subjective Rosalba Jimenez is a 38 y.o. female here for: Evaluation of possible adult ADHD. She states that she has always had difficulty concentrating even in elementary school but was still able to get adequate grades. 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 Her oldest children are now in eighth grade and she is having a much harder time keeping up with their schoolwork and keeping them on task as well as herself. Three of her 4 children have been diagnosed with ADHD and are on medication. She will often have to read her homework several times before she can retain enough information in order to teach them. She has no problem with the younger children as they are still doing a lot of hands on activity and crafts. She denies depression or anxiety. She denies alcohol or illicit druguse. She denies any chance of . She denies headaches, vision changes, history of head injury. She denies any long-term memory problems. PHYSICAL EXAM: BP 107/71 Pulse 77 Temp 98.9 ??F (37.2 ??C) (Oral) Wt 64.6 kg (142 lb 6.4 oz) LMP 03/27/2018 BMI 26.05 kg/m2 FiO2: Wt Readings from Last 3 Encounters: 04/16/18 64.6 kg (142 lb 6.4 oz) 07/09/17 67 kg (147 lb 12.8 oz) 06/17/17 68.6 kg (151 lb 3.2 oz) General appearance: alert, cooperative, pleasant, in no acute distress. Psych: Well dressed and groomed, good eye contact. Speech is logical and regular. Good insight and judgement. No evidence of hallucinations or delusions. Not suicidal and contracts for safety. Neck: without thyromegaly or cervical lymphadenopathy. Heart: regular rhythm, normal S1 and S2, without murmurs, rubs or gallops. Lungs: breath sounds normal and symmetric; no rales or wheezes. Good air movement. Extremities: no clubbing, cyanosis or edema. She filled out an adult ADHD self report scale in the office today. This was scanned into her chartand the results are highly suggestive of adult ADHD. Assessment 1. Attention deficit hyperactivity disorder (ADHD), predominantly inattentive type Plan Orders Placed This Encounter ??? amphetamine-dextroamphetamine XR 24hr (ADDERALL XR) 10 MG capsule Sig: Take 1 capsule by mouth every morning May increase to 2 caps daily after 1 week if needed. Dispense: 30 capsule Refill: 0 Her adult ADHD self-report Scale was highly suggestive of adult ADHD. Her symptoms are affecting her life significantly in the sense that she cannot home school her children adequately and cannot stay organized enough to run her household due to the increased book work necessary for teaching her children. I discussed having her see a psychologist for definitive diagnosis, but she declined, citingcost and time. It is reasonable to a trial of a stimulant to see if this would adequately improve her symptoms. She would like to try this. She is given Adderall XR 10 mg every morning. I discussed the new medication's dosage and administration, potential risks and benefits and side effect profile, and when to call or follow up sooner. She may increase to 20 mg after 1 week if needed. She is advised to follow up in 1 month for a blood pressure check and to see how she does with this medication.I stressed that she should not become while on this medication. She is currently using condoms for contraception and does not desire other form of contraception at this time. She declined flu shot today. She voiced understanding and agreement with plan. documented in this encounter Plan of Treatment Not on file documented as of this encounter Visit Diagnoses Diagnosis Attention deficit hyperactivity disorder (ADHD), predominantly inattentive type- Primary documented in this encounter Care Teams Sebd Teacher Relationship Specialty Start Date End Date Tracey Patel MD PCP - General Family Medicine 06/13/17 documented as of this encounter
--- OUTSIDE RECORDS SUMMARY | 2024-07-24 09:41 | XMS_ITS | Encounter Summary ---
Author Organization [facility] Address [facility] [place] [address] Care Team Providers Care Upholstery Handler Name Role Phone Tracey Patel MD Primary Care Provider [phone] Reason for Visit * Radiology Services (Routine) - Closed Specialty Diagnoses / Procedures Referred By Sana t Referred To Contact Diagnoses Left breast lump Procedures US BREAST LEFT LTD [place] [address] [place] [address] [facility] [address] [place] [address] Referral ID Status Reason Start Date Expiration Date Visits Re quested Visits Authorized [id number] Closed 07/09/2017 01/05/2018 1 1 Encounter Details Date Type Department Care Team (Latest Contact Info) Description 07/17/2017 10:08 AM HVAC TECHNICIAN RESIDENTIAL - 07/17/2017 11:59 PM [facility] Hospital Encounter [facility] Health Imaging Services - Ultrasound [address] [address] [place] [address] [place] [address] Discharge Disposition: Home or Self Care Social [...] 06/17/2017 05/14/2018 documented as of this encounter Plan of Treatment Not on file documented as of this encounter Procedures Procedure Name Priority Date/Time Associated Diagnosis Comments US BREAST LEFT LTD Routine 07/17/2017 10 :29 AM HVAC TECHNICIAN RESIDENTIAL Left breast lump documented in this encounter Results * US BREAST LEFT LTD (07/17/2017 10:29 AM HVAC TECHNICIAN RESIDENTIAL) Anatomical Region Laterality Modality Breast Left Ultrasound 07/17/2017 10:5 2 AM HVAC TECHNICIAN RESIDENTIAL Narrative 07/17/2017 10:54 AM HVAC TECHNICIAN RESIDENTIAL Left breast ultrasound Indication for examination: Palpable [...] clinical basis Joyce Saldivar MD US ORDERABLES documented in this encounter Visit Diagnoses Diagnosis Left breast lump Lump or mass in breast documented in this encounter Care Teams Upholstery Handler Relationship Specialty Start Date End Date Tracey Patel MD PCP - General Family Medicine 06/13/17 documented as of this encounter
--- OUTSIDE RECORDS SUMMARY | 2024-07-24 09:41 | XMS_ITS | Encounter Summary ---
Author Organization [facility] Address [address] [facility] [address] [place] [address] Care Team Providers Care Installation Helper Name Role Phone Camille Costello Primary Care Provi roxanne Reason for Referral * Diagnostic Imaging (Routine) - Closed Specialty Diagnoses / Procedures Referred By Sana t Referred To Contact Diagnoses Right foot pain Procedures XR Foot Right 3+ Vw Mari Gonsales NP [address] [address] Phone: tel: [facility] Referral ID Status Reason Start Date Expiration Date Visits Re quested Visits Authorized [id number] Closed 09/27/2021 10/27/2022 1 1 N RESOURCES TALENT MANAGER Reason for Visit * Reason Comments Fall Right foot Encounter Details Date Type Department Care Team (Late st Contact Info) Description 09/27/2021 10:45 AM HUMAN RESOURCES TALENT MANAGER Office Visit [facility] [address] [address] Mari Gonsales NP [address] [address] Sprain of right foot, initial encounter (Primary Dx) Social History Tobacco Use Types Packs/Day Years Used Date Smoking Tobacco: Never Assessed Comments Unknown Sex and Gender Information Value Date Recorded Sex Assigned at Not on file Legal Sex Female 7:01 PM HUMAN RESOURCES TALENT MANAGER Gender Identity Not on file Sexual Orientation Not on file documented as of this encounter Last Filed Vital Signs Vital Sign Reading Time Taken Comments Blood Pressure 121/78 09/27/2021 10:15 AM HUMAN RESOURCES TALENT MANAGER Pulse 110 09/27/2021 10:15 AM HUMAN RESOURCES TALENT MANAGER Temperature 36.8 ??C (98.3 ??F) 09/27/2021 10:[address] Respiratory Rate 12 09/27/2021 10:15 AM HUMAN RESOURCES TALENT MANAGER Oxygen Saturation 100% 09/27/2021 10:15 AM HUMAN RESOURCES TALENT MANAGER Inhaled Oxygen Concentration - - Weight 60.3 kg (133 lb) 09/27/2021 10:15 AM HUMAN RESOURCES TALENT MANAGER Height 157.5 cm (5' 2 ) 09/27/2021 10:15 AM HUMAN RESOURCES TALENT MANAGER Body Mass Index 24.33 09/27/2021 10:15 AM HUMAN RESOURCES TALENT MANAGER documented in this encounter Patient Instructions * Patient Instructions* Mari Gonsales, COMPUTER METEOROLOGIST - 09/27/2021 10:45 AM HUMAN RESOURCES TALENT MANAGER -Continue ibuprofen and tylenol as needed for swelling and pain. -Ice to foot for swelling and pain. Rise up on pillows for swelling -May apply wrap to foot for comfort. -If symptoms continue, follow up with PCP, orthopedics or ER as needed Patient Education Foot Sprain REAL TIME TRADER: A foot sprain is caused by a stretched or torn ligament in the foot or toe. Ligaments are tough tissues that connect bones. A foot sprain usually occurs during sports when your moves in a twist motion and your foot stays in place. Common symptoms include the following: ?? Bruising or changes in skin color ?? Inability to put weight on your foot ?? Pain, tenderness, and swelling Seek care immediately if: ?? You have numbness or tingling below the injury, such as in your toes. ?? The skin on your injured foot is blue or pale. ?? You have increased pain, even after you take pain medicine. Contact your healthcare provider if: ?? You have new weakness in your foot. ?? You have new or increased swelling in your foot. ?? You have new or increased stiffness when you move your injured foot. ?? You have questions or concerns about your condition or care. Treatment for a foot sprain may include the following: ?? A support device , such as a brace, cast, or splint. These devices limit movement and protect further injury. ?? NSAIDs , such as ibuprofen, help decrease swelling, pain, and fever. This medicine is available with or without a doctor's order. NSAIDs can cause stomach bleeding or kidney problems in certain people. If you take blood thinner medicine, always ask if NSAIDs are safe for you. Always read the medicine label and follow directions. Do not give these medicines to children under 6 months of age without direction from your child's healthcare provider. Care for a foot sprain: ?? Rest to limit movement in your sprained foot for the first 2 to 3 days. Use crutches as directedto take weight off your foot while it heals. ?? Apply ice on your foot for 15 to 20 minutes every hour or as directed. Use an ice pack, or put crushed ice in a plastic bag. Cover it with a towel. Ice helps prevent tissue damage and decreases swelling and pain. ?? Compress your foot as directed with tape or an elastic bandage to support your foot. You may need a splint on your foot for support if your sprain is severe. Wear your splint for as many days as directed. ?? Elevate your foot above the level of your heart as often as you can. This will help decrease swelling and pain. Prop your foot on pillows or blankets to keep it elevated comfortably. ?? Exercise your foot as directed to improve your strength and help decrease stiffness. The exercises and physical therapy can help restore strength and increase the range of motion in your foot. Askyour healthcare provider when you can return to your normal activities or play sports. Prevent another foot sprain: ?? Warm up and stretch before you exercise. ?? Do not exercise when you feel pain or are tired. ?? Wear equipment to protect yourself when you play sports. Follow up with your healthcare provider as directed: Write down your questions so you remember to ask them during your visits. ?? 2017 FullContact Information is for End User's use only and may not be sold, redistributed or otherwise used for commercial purposes. All illustrations and images included in CareNotes?? are the copyrighted property of [employer] or [employer]. The above information is an institutional aide only. It is not intended as medical advice for individual conditions or treatments. Talk to your doctor, nurse or pharmacist before following any medical regimen to see if it is safe and effective for you. N RESOURCES TALENT MANAGER N RESOURCES TALENT MANAGER documented in this encounter Progress Notes * Mari Gonsales NP - 09/27/2021 10:45 AM CST Images from the original note were not included. Subjective/Objective Patient ID: Rosalba Jimenez is a 41 y.o. female. Chief Complaint Fall (Right foot) Patient presents to the clinic with reports of right foot pain after falling yesterday. Patient reports that she was walking down stairs and when she got to the 2nd to the last stair that it broke and she fell forward. She does not remember her foot get in stock reports that all happened so fast. She had instant pain and swelling to her right foot. She has taken ibuprofen for her pain and tried to apply ice but the ice made it hurt more. She has been using crutches at home because when she walks it makes that pain worse. She also reports having an ortho boot at home but it hurt too much to put on. Denies loss of sensation, numbness, and tingling. Foot is bruised. Review of Systems Constitutional: Negative for fever. Respiratory: Negative for cough. Cardiovascular: Negative for chest pain. Musculoskeletal: Positive for arthralgias (right foot), gait problem (due to pain) and joint swelling (right foot). Neurological: Negative for headaches. Physical Exam Eyes: Conjunctiva/sclera: Conjunctivae normal. Cardiovascular: Rate and Rhythm: Normal rate. Pulmonary: Effort: Pulmonary effort is normal. Musculoskeletal: Right foot: Decreased range of motion (painful). Swelling (top of right foot) and tenderness (with deep palpation) present. No deformity, bunion, foot drop or laceration. Normal pulse. Left foot: Normal. Skin: General: Skin is warm and dry. Neurological: Mental Status: She is alert. Psychiatric: Mood and Affect: Mood normal. Vitals: 09/27/21 1015 BP: 121/78 BP Location: Left arm Patient Position: Sitting Pulse: 110 Resp: 12 Temp: 36.8 ??C (98.3 ??F) TempSrc: Oral SpO2: 100% Weight: 60.3 kg (133 lb) Height: 157.5 cm (5' 2 ) Assessment/Plan -Continue ibuprofen and tylenol as needed for swelling and pain. -Ice to foot for swelling and pain. Rise up on pillows for swelling -May apply wrap to foot for comfort. -If symptoms continue, follow up with PCP, orthopedics or ER as needed Diagnoses and all orders for this visit: Sprain of right foot, initial encounter (Primary) - XR Foot Right 3+ Vw; Future XRAY IMPRESSION: No acute bony abnormality. Patient Education: Foot Sprain REAL TIME TRADER: A foot sprain is caused by a stretched or torn ligament in the foot or toe. Ligaments are tough tissues that connect bones. A foot sprain usually occurs during sports when your moves in a twist motion and your foot stays in place. Common symptoms include the following: ?? Bruising or changes in skin color ?? Inability to put weight on your foot ?? Pain, tenderness, and swelling Seek care immediately if: ?? You have numbness or tingling below the injury, such as in your toes. ?? The skin on your injured foot is blue or pale. ?? You have increased pain, even after you take pain medicine. Contact your healthcare provider if: ?? You have new weakness in your foot. ?? You have new or increased swelling in your foot. ?? You have new or increased stiffness when you move your injured foot. ?? You have questions or concerns about your condition or care. Treatment for a foot sprain may include the following: ?? A support device , such as a brace, cast, or splint. These devices limit movement and protect further injury. ?? NSAIDs , such as ibuprofen, help decrease swelling, pain, and fever. This medicine is available with or without a doctor's order. NSAIDs can cause stomach bleeding or kidney problems in certain people. If you take blood thinner medicine, always ask if NSAIDs are safe for you. Always read the medicine label and follow directions. Do not give these medicines to children under 6 months of age without direction from your child's healthcare provider. Care for a foot sprain: ?? Rest to limit movement in your sprained foot for the first 2 to 3 days. Use crutches as directedto take weight off your foot while it heals. ?? Apply ice on your foot for 15 to 20 minutes every hour or as directed. Use an ice pack, or put crushed ice in a plastic bag. Cover it with a towel. Ice helps prevent tissue damage and decreases swelling and pain. ?? Compress your foot as directed with tape or an elastic bandage to support your foot. You may need a splint on your foot for support if your sprain is severe. Wear your splint for as many days as directed. ?? Elevate your foot above the level of your heart as often as you can. This will help decrease swelling and pain. Prop your foot on pillows or blankets to keep it elevated comfortably. ?? Exercise your foot as directed to improve your strength and help decrease stiffness. The exercises and physical therapy can help restore strength and increase the range of motion in your foot. Askyour healthcare provider when you can return to your normal activities or play sports. Prevent another foot sprain: ?? Warm up and stretch before you exercise. ?? Do not exercise when you feel pain or are tired. ?? Wear equipment to protect yourself when you play sports. Follow up with your healthcare provider as directed: Write down your questions so you remember to ask them during your visits. ?? 2017 FullContact Information is for End User's use only and may not be sold, redistributed or otherwise used for commercial purposes. All illustrations and images included in CareNotes?? are the copyrighted property of [employer]. or [employer]. The above information is an institutional aide only. It is not intended as medical advice for individual conditions or treatments. Talk to your doctor, nurse or pharmacist before following any medical regimen to see if it is safe and effective for you. Disposition ??? Treatment plan including expectations, follow up, and return precautions discussed with patient/parent, verbalizes understanding. ??? Medication dosage, use, and potential adverse reactions discussed with patient/parent. ??? Advised to follow up with PCP if symptoms do not resolve as expected or sooner if condition worsens. ??? Signs/symptoms warranting ER evaluation reviewed. ??? Patient and/or guardian was given an opportunity to ask questions, questions answered. Mari Gonsales NP 09/27/21 11:08 AM Cosigned by Castro Amador MD at 09/27/2021 9:14 PM HUMAN RESOURCES TALENT MANAGER N RESOURCES TALENT MANAGER N RESOURCES TALENT MANAGER N RESOURCES TALENT MANAGER documented in this encounter Plan of Treatment Not on file documented as of this encounter Results * XR Foot Right 3+ Vw (09/27/2021 10:38 AM HUMAN RESOURCES TALENT MANAGER) Anatomical Region Laterality Modality Lower Extremities, Foot Right Digital Radiography 09/27/2021 10:5 2 AM HUMAN RESOURCES TALENT MANAGER Narrative 09/27/2021 10:55 AM HUMAN RESOURCES TALENT MANAGER EXAM DESCRIPTION: ?XR FOOT RIGHT 3 OR MORE VIEWS REASON FOR STUDY: ?? pain ?? Pt fell on steps 1 Day ago, Dorsal foot pain ?? TECHNIQUE: ?? AP, lateral and oblique ??radiographic views acquired of the right foot. COMPARISON: ?? None FINDINGS: BONES/JOINTS: ?? No acute fracture, malalignment or osseous abnormalities. ?? Joint spaces are maintained. SOFT TISSUES: ?? Dorsal soft tissue swelling is noted. OTHER: ?? Small heel spurs are present. IMPRESSION: ?? 1. ?? No acute bony abnormality. THIS IS AN ELECTRONICALLY VERIFIED FINAL REPORT 09/27/2021 10:55 AM - Electronically signed by ??Emmett Min M.D. D: ??09/27/2021 10:55 AM T: Report ID: [id number] Reading Location: ??[id number] Procedure Note Emmett Min MD - 09/27/2021 EXAM DESCRIPTION: XR FOOT RIGHT 3 OR MORE VIEWS REASON FOR STUDY: pain Pt fell on steps 1 Day ago, Dorsal foot pain TECHNIQUE: AP, lateral and oblique radiographic views acquired of theright foot. COMPARISON: None FINDINGS: BONES/JOINTS: No acute fracture, malalignment or osseous abnormalities. Joint spaces are maintained. SOFT TISSUES: Dorsal soft tissue swelling is noted. OTHER: Small heel spurs are present. IMPRESSION: 1. No acute bony abnormality. THIS IS AN ELECTRONICALLY VERIFIED FINAL REPORT 09/27/2021 10:55 AM - Electronically signed by Emmett Min M.D. SS T: Report ID: [id number] Reading Location: [id number] Mari Gonsales COMPUTER METEOROLOGIST IMG XR PROCEDURES Final Result documented in this encounter Visit Diagnoses Diagnosis Sprain of right foot, initial encounter- Primary Right foot pain Pain in soft tissues of limb documented in this encounter Historical Medications * This list may reflect changes made after this encounter. dextroamphetamin e-amphetamine XR (ADDERALL XR) 30 mg 24 hr capsule Take 1 capsule (30 mg total) by mouth bow tacker before breakfast 03/01/2021 added in this encounter Care Teams Installation Helper Relationship Specialty Start Date End Date Camille Costello DO [address] [place] [address] PCP - General Family Medicine 09/27/21 documented as of this encounter
--- OUTSIDE RECORDS SUMMARY | 2024-07-24 09:41 | XMS_ITS | Encounter Summary ---
Author Organization [facility] Address [address] [place] [address] Care Team Providers Care Purchasing Manager Name Role Phone Roxanna Acosta MD Primary Care Provider Reason for Visit * Reason Comments Follow Up Encounter Details Date Type Department Care Team (Late st Contact Info) Description 05/17/2024 10:00 AM CDT Office Visit [facility] Oncology and Hematology - [place] [address] [facility] [address] [place] [address] Michele Smith MD [address] [facility] [address] [place] [address] Iron deficiency anemia due to chronic blood loss (Primary Dx) Social History Tobacco Use Types [...] (146 lb) 05/17/2024 10:02 AM CDT Height - - Body Mass Index 26.7 01/26/2024 2:44 PM CDT documented in this encounter Progress Notes * Michele Smith MD - 05/17/2024 11:33 AM CDT HEMATOLOGY / ONCOLOGY PROGRESS NOTE Patient Identification: Name: Rosalba Jimenez Age: 44 y.o. Sex: female : 1980 DIAGNOSIS Iron deficiency anemia CURRENT TREATMENT Patient is intolerant to oral iron TREATMENT HISTORY Iron infusion on February 04, 2024 SUBJECTIVE Patient came into the office for follow-up visit. She felt much better after the iron infusion but now slowly feeling tired and fatigue again. She denies any chest pain and shortness of breath. She has been having heavy menstrual bleeding. No other new complaints. Review of system Constitutional: Patient did not mention fevers, sweats, complain of tiredness and fatigue HEENT: Patient did not mention sinus congestion, hearing or vision problems Respiratory: Patient did not mention cough, dyspnea, wheeze Cardiovascular: Patient did not mention chest pain, exertional chest pressure/discomfort, nausea, syncope, shortness of breath GI: Patient did not mention constipation, diarrhea, dsyphagia, reflux symptoms, vomiting, melena : Patient did not mention dysuria, frequency, incontinence, urgency Integumentary system: no lymphadenopathy, sweats, flushing Musculoskeletal: Patient not mention: myalgia, arthralgia Neurological: Patient did not mention blurry or disturbed vision, numbness/weakness, dizziness Skin: No lumps, bumps or rashes. Objective: Vital signs in last 24 hours: As per nursing note Exam: General appearance: alert, cooperative, no distress, appears stated age Head: normocephalic, without obvious abnormality, atraumatic Eyes: conjunctivae/corneas clear, EOM's intact Ears: normal external ear canals AU Nose: Nares normal. Septum midline. Mucosa normal. No drainage or sinus tenderness Throat: Lips, mucosa, and tongue normal. Teeth and gums normal Neck: supple, symmetrical, trachea midline. Lungs: clear to auscultation bilaterally Heart: regular rate and rhythm, S1, S2 normal, no murmur, click, rub or gallop Abdomen: soft, non-tender. Bowel sounds normal. No masses, No organomegaly Extremities: extremities normal, atraumatic, no cyanosis or edema Skin: Skin color, texture, turgor normal. No rashes or lesions Lymph nodes: No lymphadenopathy Neuro: No obvious focal deficit PATH LABS Labs from May 14 showed hemoglobin 12.7 creatinine 0.6 vitamin B12 976 iron 43 saturation 10 ferritin 5.9 @IMAGEIMP@ Assessment: Plan: Patient Active Problem List Diagnosis Date Noted RIN (iron deficiency anemia) 06/19/2023 AUB, anemia- PRBC, iron 06/16/2023 Acute blood loss anemia 06/16/2023 Status post LEEP (loop electrosurgical excision procedure) of cervix 03/24/2018 HGSIL (high grade squamous intraepithelial lesion) on Pap smear of cervix 08/29/2017 S/P tonsillectomy 02/19/2012 Anxiety state, unspecified 11/03/2006 Iron deficiency anemia secondary to heavy menstrual bleeding. Patient is intolerant to oral iron. Patient received iron infusion on February 04, 2024. Labs noted. Patient is more iron deficient and feeling quite symptomatic with tiredness and fatigue. Will proceed with another round of iron infusion. Heavy menstrual bleeding. I have strongly recommended to discuss with her drapery cutter regarding menstrual cessation options. ADHD. Patient is on Adderall. Follow-up in 3 months. ? TOBACCO COUNSELING She is not a tobacco/nicotine user. 05/17/2024 Michele Smith MD documented in this encounter Plan of Treatment Upcoming Encounters Date Type Department Care Team (Late st Contact Info) Description 08/23/2024 11:15 AM RIVER BOAT CAPTAIN Office Visit [facility] Oncology and Hematology - [place] [address] [facility] [place] [address] [place] [address] Michele Smith MD [address] [facility] [address] [place] [address] Scheduled Orders Name Type Priority Associated Diagnoses Orde r Schedule CBC WITHOUT DIFFERENTIAL Lab Stat Iron deficiency anemia due to chronic blood loss Expected: 08/09/2024, Expires: 05/17/2025 FERRITIN Lab Routine Iron deficiency anemia due to chronic blood loss Expected: 08/09/2024, Expires: 05/17/2025 IRON, TIBC, AND PERCENT SATURATION Lab Routine Iron deficiency anemia due to chronic blood loss Expected: 08/09/2024, Expires: 05/17/2025 documented as of this encounter Visit Diagnoses Diagnosis Iron deficiency anemia due to chronic blood loss- Primary Iron deficiency anemia secondary to blood loss (chronic) documented in this encounter Care Teams Purchasing Manager Relationship Specialty Start Date End Date Roxanna Acosta MD PCP - General Family Practice 02/19/12 documented as of this encounter
--- OUTSIDE RECORDS SUMMARY | 2024-07-24 09:41 | XMS_ITS | Encounter Summary ---
Author Organization [facility] Address [address] [place] [address] Care Team Providers Care Med Asst Name Role Phone Roxanna Acosta MD Primary Care Provider [phone] Encounter Details Date Type Department Care Team (Late Contact Info) Description 03/09/2024 External Device Data STL ABSTRACTION Provider, Abstract [...] Upcoming Encounters Date Type Department Care Team ([facility] Contact Info) Description 08/23/2024 11:15 AM PATTERN CLERK Office Visit [facility] Oncology and Hematology - [place] [address] [facility] [address] [place] [address] Michele Smith MD [address] [facility] [address] [place] [address] documented as of this encounter Visit Diagnoses Not on filedocumented in this encounter Care Teams Med Asst Relationship Specialty Start Date End Date Roxanna Acosta MD PCP - General Family Practice 02/19/12 documented as of this encounter
--- OUTSIDE RECORDS SUMMARY | 2024-07-24 09:41 | XMS_ITS | Encounter Summary ---
Author Organization [facility] Address [address] [facility] [place] [address] Care Team Providers Care Garage Construction Equipment Mechanic Name Role Phone Tracey Patel MD Primary Care Provider [phone] Reason for Visit * Reason Onset Date Comments MEDICATION REFILL 06/03/2018 Encounter Details Date Type Department Care Team (Late st Contact Info) Description 06/03/2018 Refill [facility] Medical [facility] - Family Medicine [id number] [place] [phone] Tracey Patel MD [address] [place] [phone] MEDICATION REFILL Social History Tobacco Use [...] Telephone Encounter - Tracey Patel MD - 06/03/2018 12:48 PM CDT Let her know that her refill has been sent in. * Telephone Encounter - Germaine Pascual - 06/03/2018 9:06 AM CDT Rosalbaverenice Jimenez is in need of Her Requested Prescriptions Pending Prescriptions Disp Refills ??? amphetamine-dextroamphetamine XR 24hr (ADDERALL XR) 20 MG capsule 30 capsule 0 Sig: Take 1 capsule by mouth every morning Person calling for the refill: Patient Last office visit 05/14/2018 Next Appointment scheduled: Visit date not found Last Refill for this medication 05/05/2018 Does patient have any new allergies since last office visit? No Was the pharmacy verified? Yes If this is a controlled substance was the Last 4 of SSN verified? NOT APPLICABLE (If unable to verify last 4 of SSN transfer to the clinic for further review) Please forward to: [facility] [id number] [id number] [facility] documented in this encounter Plan of Treatment Not on file documented as of this encounter Visit Diagnoses Not on filedocumented in this encounter Care Teams Garage Construction Equipment Mechanic Relationship Specialty Start Date End Date Tracey Patel MD PCP - General Family Medicine 06/13/17 documented as of this encounter
--- OUTSIDE RECORDS SUMMARY | 2024-07-24 09:41 | XMS_ITS | Encounter Summary ---
Author Organization [facility] Address [address] [facility] [place] [address] Care Team Providers Care Certified Nursing Assistant Name Role Phone Tracey Patel MD Primary Care Provider [phone] Reason for Visit * Reason Onset Date Comments MEDICATION REFILL 08/03/2018 Encounter Details Date Type Department Care Team (Late st Contact Info) Description 08/03/2018 Refill [facility] Medical [facility] - Family Medicine [id number] [place] [phone] Tracey Patel MD [address] [place] [phone] MEDICATION REFILL Social History Tobacco Use Types [...] * Telephone Encounter - Anusha Hargrove - 08/03/2018 10:32 AM CST Rosalba Jimenez No Known Allergies Requested Prescriptions Pending Prescriptions Disp Refills ??? amphetamine-dextroamphetamine XR 24hr (ADDERALL XR) 20 MG capsule 30 capsule 0 Sig: Take 1 capsule by mouth every morning Earliest Fill Date: 08/03/18 Last Refill: 07/03/2018 Last Office Visit: 05/14/2018 TING MANAGER * Telephone Encounter - Anusha Hargrove - 08/03/2018 10:32 AM CSTFrom: Rosalba Jimenez To: Tracey Patel MD Sent: 08/03/2018 10:13 AM PRINTING MANAGER Subject: Medication Renewal Request Original authorizing provider: MD Rosalba Mckeon would like a refill of the following medications: amphetamine-dextroamphetamine XR 24hr (ADDERALL XR) 20 MG capsule [Tracey Patel MD] Preferred pharmacy: [facility] [id number] [place] [phone] [facility] RAFFAELE Comment: TING MANAGER documented in this encounter Plan of Treatment Not on file documented as of this encounter Visit Diagnoses Not on filedocumented in this encounter Care Teams Certified Nursing Assistant Relationship Specialty Start Date End Date Tracey Patel MD PCP - General Family Medicine 06/13/17 documented as of this encounter
--- OUTSIDE RECORDS SUMMARY | 2024-07-24 09:41 | XMS_ITS | Encounter Summary ---
Author Organization [facility] Address [address] [facility] [place] [address] Care Team Providers Care Unattended Ground Sensor Specialist Name Role Phone Tracey Patel MD Primary Care Provider [phone] Reason for Visit * Reason Comments Refill Request Encounter Details Date Type Department Care Team (Late st Contact Info) Description 06/14/2018 Refill [facility] Medical [facility] - Family Medicine [id number] [place] [phone] Tracey Patel MD [address] [place] [phone] Refill Request Social History Tobacco Use Types Packs/Day Years [...] Telephone Encounter - Bere Martinez MA - 06/15/2018 8:41 AM CST Requested Prescriptions Pending Prescriptions Disp Refills ??? tiZANidine (ZANAFLEX) 4 MG tablet [Pharmacy Med Name: TIZANIDINE 4MG TABLETS] 30 tablet 0 Sig: TAKE 1 TABLET BY MOUTH EVERY EVENING NEEDED FOR MUSCLE SPASMS Last ov 05/14/2018 Last refill 05/14/18 LITIES LOCATOR documented in this encounter Plan of Treatment Not on file documented as of this encounter Visit Diagnoses Not on filedocumented in this encounter Care Teams Unattended Ground Sensor Specialist Relationship Specialty Start Date End Date Tracey Patel MD PCP - General Family Medicine 06/13/17 documented as of this encounter
--- OUTSIDE RECORDS SUMMARY | 2024-07-24 09:41 | XMS_ITS | Encounter Summary ---
Author Organization [facility] Address [facility] [facility] [place] [address] Care Team Providers Care Feather Boner Name Role Phone Tracey Patel MD Primary Care Provider [phone] Reason for Visit * Reason Onset Date Comments MEDICATION REFILL 12/29/2018 Encounter Details Date Type Department Care Team (Late st Contact Info) Description 12/29/[address] [facility] Medical [facility] - Family Medicine [id number] [place] [phone] Tracey Patel MD [address] [place] [phone] MEDICATION REFILL Social History Tobacco Use [...] Telephone Encounter - Kathy Díaz MA - 12/29/2018 9:04 AM CDT Rosalba Jimenez No Known Allergies Requested Prescriptions Pending Prescriptions Disp Refills ??? amphetamine-dextroamphetamine XR 24hr (ADDERALL XR) 25 MG capsule 30 capsule 0 Sig: Take 1 capsule by mouth every morning Earliest Fill Date: 12/29/18 Last Refill: 11/30/18 Last Office Visit: 11/30/2018 documented in this encounter Plan of Treatment Not on file documented as of this encounter Visit Diagnoses Not on filedocumented in this encounter Care Teams Feather Boner Relationship Specialty Start Date End Date Tracey Patel MD PCP - General Family Medicine 06/13/17 documented as of this encounter
--- OUTSIDE RECORDS SUMMARY | 2024-07-24 09:41 | XMS_ITS | Encounter Summary ---
Author Organization [facility] Address [address] [place] [address] Care Team Providers Care Head Of Sales And Marketing Name Role Phone Tracey Patel MD Primary Care Provider [phone] Reason for Visit * Reason Onset Date Comments MEDICATION REFILL 07/03/2018 Encounter Details Date Type Department Care Team (Late st Contact Info) Description 07/03/2018 Refill [facility] Medical [facility] - Family Medicine [id number] [place] [phone] Tracey Patel MD [address] [place] [phone] MEDICATION REFILL Social History Tobacco Use [...] Telephone Encounter - Tracey Patel MD - 07/03/2018 3:50 PM CST Let her know her refill has been sent in. MACY DELIVERY DRIVER * Telephone Encounter - Anusha Hargrove - 07/03/2018 3:47 PM CST Rosalba Jimenez No Known Allergies Requested Prescriptions Pending Prescriptions Disp Refills ??? amphetamine-dextroamphetamine XR 24hr (ADDERALL XR) 20 MG capsule 30 capsule 0 Sig: Take 1 capsule by mouth every morning Earliest Fill Date: 07/03/18 Last Refill: 06/03/2018 Last Office Visit: 05/14/2018 MACY DELIVERY DRIVER * Telephone Encounter - Anusha Hargrove - 07/03/2018 3:08 PM CSTFrom: Rosalba Jimenez To: Tracey Patel MD Sent: 07/03/2018 1:17 PM PHARMACY DELIVERY DRIVER Subject: Medication Renewal Request Original authorizing provider: MD Rosalba Mckeon would like a refill of the following medications: amphetamine-dextroamphetamine XR 24hr (ADDERALL XR) 20 MG capsule [Tracey Patel MD] Preferred pharmacy: [facility] [id number] [place] [phone] [facility] & RAFFAELE Comment: MACY DELIVERY DRIVER documented in this encounter Plan of Treatment Not on file documented as of this encounter Visit Diagnoses Not on filedocumented in this encounter Care Teams Head Of Sales And Marketing Relationship Specialty Start Date End Date Tracey Patel MD PCP - General Family Medicine 06/13/17 documented as of this encounter
--- OUTSIDE RECORDS SUMMARY | 2024-07-24 09:41 | XMS_ITS | Clinical Summary ---
Author Organization [facility] [address] [facility] Address [address] [place] [phone] Care Team Providers Care Tugboat Pilot Name Role Phone Camille Costello Primary Care Provi roxanne Allergies Active Allergy Reactions Criticality Noted Date Comments Benadryl Decongestant Other (See comments) Low 01/03 Feel bad physically and mentally Medications dextroamphetami ne-amphetamine XR (ADDERALL XR) 30 mg 24 hr capsule Take 1 capsule (30 mg total) by mouth catastrophe claims supervisor before breakfast 1 Active ferrous sulfate ER 324 mg (65 mg iron) EC tablet Take 1 tablet (324 mg total) by mouth 2 (two) times a day 4 Active ibuprofen (ADVIL,MOTRIN) 600 mg tablet Take 1 tablet (600 mg total) by mouth every 6 (six) hours as needed 8 Active tranexamic acid (LYSTEDA) 650 mg tablet Take 2 tablets (1,300 mg total) by mouth 3 (three) times a day 4 Active Active Problems No known active problems Social History Tobacco Use Types Packs/Day Years Used Date Smoking Tobacco: Never Assessed Comments Unknown Sex and Gender Information Value Date Recorded Sex Assigned at Not on file Legal Sex Female 7:01 PM MELTING OPERATOR Gender Identity Not on file Sexual Orientation Not on file Obstetrics History Last Filed Vital Signs Vital Sign Reading [...] Mass Index 27.01 02/28/2024 10:14 AM CDT Plan of Treatment Health Maintenance Due Date Last Done Comments Breast Cancer Screening-Mammogram 1980 Cervical Cancer Screening 1980 Depression Screening 1980 Hepatitis C Screening 1980 Varicella Vaccines (1 of 2 - 13+ 2-dose series) 1993 Hepatitis B Screening 1998 Regular Well Visit/Exam 18-64 1998 Covid-19 Vaccine (4 - 2023-2 5 season) 2024 06/10/2021, 11/26/2020, 10/28/2020 Influenza Vaccine (#1) 2024 , 05/19/2020 DTaP/Tdap/Td Vaccine (2 - Td or Tdap) 03/01/2031 03/01/2021 HPV Vaccines Aged Out No longer eligi ble based on patient's age to complete this topic Pneumococcal vaccine <65 Aged Out No longer eligible based on patient's age to complete this topic Insurance [facility]PPO Address: [facility] [address] [place] [address] [facility] Care Teams Tugboat Pilot Relationship Specialty Start Date End Date Camille Costello DO [address] [place] [address] PCP - General Family Medicine 09/27/21
--- OUTSIDE RECORDS SUMMARY | 2024-07-24 09:41 | XMS_ITS | Encounter Summary ---
Author Organization [facility] Address [address] [facility] [place] [address] Care Team Providers Care Marketing Pr Intern Name Role Phone Tracey Patel MD Primary Care Provider [phone] Reason for Visit * Reason Onset Date Comments MEDICATION REFILL 12/06/2019 Encounter Details Date Type Department Care Team (Late st Contact Info) Description 12/06/2019 Refill [facility] - Family Medicine [id number] [place] [phone] [place] [address] [place] [address] MEDICATION REFILL Social History Tobacco [...] Telephone Encounter - Silva Haider MA - 12/06/2019 4:11 PM CDT Called patient and message given. * Telephone Encounter - Tracey Patel MD - 12/06/2019 2:02 PM CDT Let her know the prescription has been sent in. Bere, please do not forget to add the date of last refill. This is especially important on controlled substances. * Telephone Encounter - Bere Martinez MA - 12/06/2019 12:46 PM CDT Rosalba Jimenez No Known Allergies Requested Prescriptions Pending Prescriptions Disp Refills ??? amphetamine-dextroamphetamine XR 24hr (ADDERALL XR) 30 MG capsule 30 capsule 0 Sig: Take 1 capsule by mouth every morning Last Office Visit: 06/28/19 documented in this encounter Plan of Treatment Not on file documented as of this encounter Visit Diagnoses Not on filedocumented in this encounter Care Teams Marketing Pr Intern Relationship Specialty Start Date End Date Tracey Patel MD PCP - General Family Medicine 06/13/17 documented as of this encounter
--- OUTSIDE RECORDS SUMMARY | 2024-07-24 09:41 | XMS_ITS | Encounter Summary ---
Author Organization [facility] Address [address] [place] [address] Care Team Providers Care Legal Project Manager Name Role Phone Roxanna Acosta MD Primary Care Provider Encounter Details Date Type Department Care Team (Late Contact Info) Description 05/18/2024 Orders Only [facility] Oncology and Hematology - [place] [address] [facility] [address] [place] [address] Michele Smith MD [address] [facility] [address] [place] [address] Social History Tobacco Use Types [...] (Late Contact Info) Description 08/23/2024 11:15 AM BRUSH MATERIAL PREPARER Office Visit [facility] Oncology and Hematology - [place] [address] [facility] [place] [address] [place] [address] Michele Smith MD [address] [facility] [address] [place] [address] documented as of this encounter Procedures Procedure Name Priority Date/Time Associated Diagnosis Comments COMPREHENSIVE METABOLIC PANEL Routine 05/14/2024 10:00 AM CDT documented in this encounter Results * COMPREHENSIVE METABOLIC PANEL (05/14/2024 10:00 AM CDT) Blood Michele Smith MD CHEMISTRY ORDERABLES documented in this encounter Visit Diagnoses Not on filedocumented in this encounter Care Teams Legal Project Manager Relationship Specialty Start Date End Date Roxanna Acosta MD PCP - General Family Practice 02/19/12 documented as of this encounter
--- OUTSIDE RECORDS SUMMARY | 2024-07-24 09:41 | XMS_ITS | Encounter Summary ---
Author Organization [facility] Address [address] [place] [address] Care Team Providers Care Oil Distributor Tender Name Role Phone Roxanna Acosta MD Primary [...] Upcoming Encounters Date Type Department Care Team ([facility] Contact Info) Description 08/23/2024 11:15 AM RENAL DIALYSIS RN Office Visit [facility] Oncology and Hematology - [place] [address] [facility] [address] [place] [address] Michele Smith MD [address] [facility] [address] [place] [address] documented as of this encounter Visit Diagnoses Not on filedocumented in this encounter Care Teams Oil Distributor Tender Relationship Specialty Start Date End Date Roxanna Acosta MD PCP - General Family Practice 02/19/12 documented as of this encounter
--- OUTSIDE RECORDS SUMMARY | 2024-07-24 09:41 | XMS_ITS | Encounter Summary ---
Author Organization [facility] Address [address] [place] [address] Care Team Providers Care Linen Supply Load Builder Name Role Phone Roxanna Acosta MD Primary Care Provider Encounter Details Date Type Department Care Team (Late Contact Info) Description 05/11/2024 External Device Data STL ABSTRACTION Provider, [...] Upcoming Encounters Date Type Department Care Team ([facility] Contact Info) Description 08/23/2024 11:15 AM MECHANICAL APPLICATIONS ENGINEER Office Visit [facility] Oncology and Hematology - [place] [address] [facility] [address] [place] [address] Michele Smith MD [address] [facility] [address] [place] [address] documented as of this encounter Visit Diagnoses Not on filedocumented in this encounter Care Teams Linen Supply Load Builder Relationship Specialty Start Date End Date Roxanna Acosta MD PCP - General Family Practice 02/19/12 documented as of this encounter
--- OUTSIDE RECORDS SUMMARY | 2024-07-24 09:41 | XMS_ITS | Encounter Summary ---
Author Organization [facility] Address [address] [facility] [place] [address] Care Team Providers Care Steno Pool Supervisor Name Role Phone Tracey Patel MD Primary Care Provider [phone] Reason for Visit * Reason Onset Date Comments Results 07/16/2017 Encounter Details Date Type Department Care Team (Late st Contact Info) Description 07/16/2017 Telephone [facility] - HEALTH AND PHYSICAL EDUCATION PROFESSOR [address] [facility] [address] [place] [address] [place] [address] [facility] [address] [place] [phone] Results Social History Tobacco Use Types [...] encounter Miscellaneous Notes * Telephone Encounter - Wanda Hernandez RN - 07/16/2017 3:15 PM CST Pt notified of pap results and need for colpo. Appt scheduled. Information mailed to her. GER LAUNDRY documented in this encounter Plan of Treatment Not on file documented as of this encounter Visit Diagnoses Not on filedocumented in this encounter Care Teams Steno Pool Supervisor Relationship Specialty Start Date End Date Tracey Patel MD PCP - General Family Medicine 06/13/17 documented as of this encounter
--- OUTSIDE RECORDS SUMMARY | 2024-07-24 09:41 | XMS_ITS | Encounter Summary ---
Author Organization [facility] Address [address] [place] [address] Care Team Providers Care Reprographics Technician Name Role Phone Tracey Patel MD Primary Care Provider [phone] Reason for Visit * Reason Onset Date Comments MEDICATION REFILL 05/26/2019 Encounter Details Date Type Department Care Team (Late st Contact Info) Description 05/26/2019 Refill [facility] Medical [facility] - Family Medicine [id number] [place] [phone] Tracey Patel MD [address] [place] [phone] MEDICATION REFILL Social History Tobacco Use [...] Telephone Encounter - Tracey Patel MD - 05/26/2019 9:45 AM CDT Let her know the refill has been sent in. * Telephone Encounter - Kathy Díaz MA - 05/26/2019 9:35 AM CDT Rosalba Jimenez No Known Allergies Requested Prescriptions Pending Prescriptions Disp Refills ??? amphetamine-dextroamphetamine XR 24hr (ADDERALL XR) 25 MG capsule 30 capsule 0 Sig: Take 1 capsule by mouth every morning Last Refill: 04/29/19 Last Office Visit: 02/02/2019 documented in this encounter Plan of Treatment Not on file documented as of this encounter Visit Diagnoses Not on filedocumented in this encounter Care Teams Reprographics Technician Relationship Specialty Start Date End Date Tracey Patel MD PCP - General Family Medicine 06/13/17 documented as of this encounter
--- OUTSIDE RECORDS SUMMARY | 2024-07-24 09:41 | XMS_ITS | Encounter Summary ---
Author Organization [facility] Address [address] [facility] [place] [address] Care Team Providers Care Porter Head Name Role Phone Tracey Patel MD Primary Care Provider [phone] Reason for Visit * Reason Onset Date Comments MEDICATION REFILL 09/03/2018 Encounter Details Date Type Department Care Team (Late st Contact Info) Description 09/03/2018 Refill [facility] - Family Medicine [id number] [place] [phone] [place] [address] [place] [address] MEDICATION REFILL Social History Tobacco [...] Telephone Encounter - Tracey Patel MD - 09/03/2018 9:42 AM CST Let her know the refill has been sent in. RAM MANAGEMENT INTERN * Telephone Encounter - Silva Haider MA - 09/03/2018 7:49 AM CST Rosalba Jimenez No Known Allergies Requested Prescriptions Pending Prescriptions Disp Refills ??? amphetamine-dextroamphetamine XR 24hr (ADDERALL XR) 20 MG capsule 30 capsule 0 Sig: Take 1 capsule by mouth every morning Earliest Fill Date: 09/03/18 Last Refill: 07-24-18 Last Office Visit: 05-14-18 RAM MANAGEMENT INTERN documented in this encounter Plan of Treatment Not on file documented as of this encounter Visit Diagnoses Not on filedocumented in this encounter Care Teams Porter Head Relationship Specialty Start Date End Date Tracey Patel MD PCP - General Family Medicine 06/13/17 documented as of this encounter
--- OUTSIDE RECORDS SUMMARY | 2024-07-24 09:41 | XMS_ITS | Encounter Summary ---
Author Organization [facility] Address [address] [facility] [place] [address] Care Team Providers Care Skidway Worker Name Role Phone Tracey Patel MD Primary Care Provider [phone] Encounter Details Date Type Department Care Team (Late st Contact Info) Description 04/16/2018 [facility] DEPT Tracey Patel MD [address] [place] [phone] Social History Tobacco Use Types Packs/Day Years [...] on filedocumented in this encounter Care Teams Skidway Worker Relationship Specialty Start Date End Date Tracey Patel MD PCP - General Family Medicine 06/13/17 documented as of this encounter
--- OUTSIDE RECORDS SUMMARY | 2024-07-24 09:41 | XMS_ITS | Encounter Summary ---
Author Organization [facility] Address [address] [place] [address] Care Team Providers Care President Financial Institution Name Role Phone Roxanna Acosta MD Primary Care Provider Encounter Details Date Type Department Care Team (Late Contact Info) Description 04/27/2024 External Device Data STL ABSTRACTION Provider, [...] Encounters Date Type Department Care Team ([facility] Contact Info) Description 08/23/2024 11:15 AM FINAL RAIL CUTTER Office Visit [facility] Oncology and Hematology - [place] [address] [facility] [address] [place] [address] Michele Smith MD [address] [facility] [address] [place] [address] documented as of this encounter Visit Diagnoses Not on filedocumented in this encounter Care Teams President Financial Institution Relationship Specialty Start Date End Date Roxanna Acosta MD PCP - General Family Practice 02/19/12 documented as of this encounter
--- OUTSIDE RECORDS SUMMARY | 2024-07-24 09:41 | XMS_ITS | Encounter Summary ---
Author Organization [facility] Address [address] [place] [address] Care Team Providers Care Configuration Management Advisor Name Role Phone Tracey Patel MD Primary Care Provider [phone] Reason for Visit * Reason Comments Physical Encounter Details Date Type Department Care Team (Latest Contact Info) Description 05/14/2018 1:45 PM CDT Office Visit [facility] - Family Medicine [id number] [place] [phone] Tracey Patel MD [address] [place] [phone] Annual physical exam (Primary Dx); Attention deficit [...] Sign Reading Time Taken Comments Blood Pressure 106/72 05/14/2018 1:43 PM CDT Pulse 76 05/14/2018 1:43 PM CDT Temperature - - Respiratory Rate - - Oxygen Saturation - - Inhaled Oxygen Concentration - - Weight 61.7 kg (136 lb) 05/14/2018 1:43 PM CDT Height 157.5 cm (5' 2 ) 05/14/2018 1:43 PM CDT Body Mass Index 24.87 05/14/2018 1:43 PM CDT documented in this encounter Progress Notes * Tracey Patel MD - 05/14/2018 2:16 PM CDT SUBJECTIVE: Rosalba Jimenez is a 38 y.o. female that presents for: Annual physical exam. Patient Active Problem List Diagnosis Date Noted ??? Attention deficit hyperactivity disorder (ADHD), predominantly inattentive type 04/16/2018 Priority: Not Prioritized ??? Left breast lump 07/09/2017 Priority: Not Prioritized There is no immunization history on file for this patient. Outpatient Medications Prior to Visit Medication Sig Dispense Refill ??? amphetamine-dextroamphetamine XR 24hr (ADDERALL XR) 20 MG capsule Take 1 capsule by mouth everymorning 30 capsule 0 ??? ibuprofen (MOTRIN) 600 MG tablet Take 600 mg by mouth every 6 hours as needed ??? naproxen sodium (ALEVE) 220 MG tablet Take 220 mg by mouth every 4 hours as needed ??? tiZANidine (ZANAFLEX) 4 MG tablet Take 1 tablet by mouth nightly as needed for Muscle Spasms 30tablet 0 No facility-administered medications prior to visit. No past medical history on file. Family History Problem Relation Age of Onset ??? Other Mother had hysterectomy due to menorrhagia ??? Cancer - Skin, Non Melanoma Mother ??? Other Sister endometriosis ??? Cancer - Prostate Father Social History Social History ??? Marital status: [...] History: Procedure Laterality Date ??? Cervical LEEP 2017 ??? Tonsillectomy 2001 No Known Allergies REVIEW [...] Regular menses, no abnormal bleeding. She is up-to-date on seeing her OBGYN for well-woman exam. Hematologic/lymphatic: No history of anemia. No abnormal bleeding or bruising. Musculoskeletal: No painful joints, myalgia, swelling, weakness. Neurological: Stable gait, no numbness, tingling, syncope, dizziness. Behavioral/Psych: No sleep disturbance, memory changes, depression. She feels the Adderall XR 20 mghas worked very well for her. She had some initial jittery symptoms when she went from 10 mg to 20 mg but she has gotten used to this and denies any side effects. She denies any insomnia or heart palpitations. She has lost weight since I saw her last but states that she has been working very hard to lose weight. Endocrine: No fatigue. Weight loss as above. ROS negative except as mentioned in ROS or in HPI OBJECTIVE: BP 106/72 Pulse 76 Wt 61.7 kg (136 lb) BMI 24.87 kg/m2 FiO2: Wt Readings from Last 3 Encounters: 05/14/18 61.7 kg (136 lb) 04/16/18 64.6 kg (142 lb 6.4 oz) 07/09/17 67 kg (147 lb 12.8 oz) General Appearance: alert, cooperative, no distress, [...] hyperactivity disorder (ADHD), predominantly inattentive type PLAN: Medications Discontinued During This Encounter Medication Reason ??? tiZANidine (ZANAFLEX) 4 MG tablet Reorder Orders Placed This Encounter ??? tiZANidine (ZANAFLEX) 4 MG tablet Sig: Take 1 tablet by mouth nightly as needed for Muscle Spasms Dispense: 30 tablet Refill: 0 Routine age-appropriate anticipatory guidance was given. She declined flu vaccine today. She appears to be doing very well with Adderall and will continue current dose. She is advised to let me know when she needs a refill. I did refill the Zanaflex per her request. She uses this very rarely for intermittent low back pain. She is cautioned of sedation with this. Follow up: one year, sooner PRN She voiced understanding and agreement with plan. documented in this encounter Plan of Treatment Not on file documented as of this encounter Visit Diagnoses Diagnosis Annual physical exam- Primary Routine general medical examination at a health care facility Attention deficit hyperactivity disorder (ADHD), predominantly inattentive type documented in this encounter Care Teams Configuration Management Advisor Relationship Specialty Start Date End Date Tracey Patel MD PCP - General Family Medicine 06/13/17 documented as of this encounter
--- OUTSIDE RECORDS SUMMARY | 2024-07-24 09:41 | XMS_ITS | Referral Summary ---
Author Organization [facility] [place] Address [address] [place] [phone] Care Team Providers Care Painter Spring Name Role Phone Camille Costello DO Primary Care Provi roxanne Allergies Active Allergy Reactions Criticality Noted Date Comments Benadryl Decongestant Other (See comments) Low 01/03 Feel bad physically and mentally Medications dextroamphetami ne-amphetamine XR (ADDERALL XR) 30 mg 24 hr capsule Take 1 capsule (30 mg total) by mouth customer solutions architect before breakfast 1 Active ferrous sulfate ER [...] on file Legal Sex Female 7:01 PM FIELD COIL WINDER Gender Identity Not on file Sexual Orientation [...] 02/28/2024 10:14 AM CDT Plan of Treatment Not on file Insurance CHOICE PLUS Care Teams Painter Spring Relationship Specialty Start Date End Date Camille Costello DO [address] [place], [place] [phone] PCP - General Family Medicine 09/27/21
--- OUTSIDE RECORDS SUMMARY | 2024-07-24 09:41 | XMS_ITS | Encounter Summary ---
Author Organization [facility] Address [address] [facility] [place] [address] Care Team Providers Care Dining Room Manager Name Role Phone Tracey Patel MD Primary Care Provider [phone] Reason for Visit * Reason Onset Date Comments MEDICATION REFILL 08/16/2019 Encounter Details Date Type Department Care Team (Late st Contact Info) Description 08/16/2019 Refill [facility] - Family Medicine [id number] [place] [phone] Tracey Patel MD [address] [place] [phone] MEDICATION REFILL Social History Tobacco Use [...] Telephone Encounter - Tracey Patel MD - 08/16/2019 9:02 AM CST Let her know the refill has been sent in. BER HELPER * Telephone Encounter - Janae Rodriguez - 08/16/2019 8:40 AM CST Rosalba Jimenez No Known Allergies Requested Prescriptions Pending Prescriptions Disp Refills ??? amphetamine-dextroamphetamine XR 24hr (ADDERALL XR) 30 MG capsule 30 capsule 0 Sig: Take 1 capsule by mouth every morning Last Refill: 07/16/2019 Last Office Visit: 06/28/2019 BER HELPER documented in this encounter Plan of Treatment Not on file documented as of this encounter Visit Diagnoses Not on filedocumented in this encounter Care Teams Dining Room Manager Relationship Specialty Start Date End Date Tracey Patel MD PCP - General Family Medicine 06/13/17 documented as of this encounter
--- OUTSIDE RECORDS SUMMARY | 2024-07-24 09:41 | XMS_ITS | Encounter Summary ---
Author Organization [facility] Address [address] [facility] [place] [address] Care Team Providers Care Leather Stretcher Name Role Phone Tracey Patel MD Primary Care Provider [phone] Reason for Visit * Reason Onset Date Comments MEDICATION REFILL 09/04/2018 Encounter Details Date Type Department Care Team (Late st Contact Info) Description 09/04/2018 Refill [facility] Medical [facility] - Family Medicine [id number] [place] [phone] Tracey Patel MD [address] [place] [phone] MEDICATION REFILL Social History Tobacco Use [...] Telephone Encounter - Kathy Díaz MA - 09/08/2018 2:50 PM MARKET SUPERINTENDENT Medication required a prior authorization. Medication has been approved. Pharmacy and patient notified. ET SUPERINTENDENT * Telephone Encounter - Tracey Patel MD - 09/04/2018 3:11 PM CST Look at the refill history. It looks like this somehow got sent to Dr. Cullen instead of me yesterdayand he okayed the refill. Double check with the pharmacy to make sure the refill was sent in. ET SUPERINTENDENT * Telephone Encounter - Bere Martinez MA - 09/04/2018 2:35 PM CST Rosalba Jimenez No Known Allergies Requested Prescriptions Pending Prescriptions Disp Refills ??? amphetamine-dextroamphetamine XR 24hr (ADDERALL XR) 20 MG capsule 30 capsule 0 Sig: Take 1 capsule by mouth every morning Last Office Visit: 05/14/2018 ET SUPERINTENDENT * Telephone Encounter - Tracey Patel MD - 09/04/2018 2:17 PM CST Nothing is requested on here. What needed refilled? ET SUPERINTENDENT * Telephone Encounter - Silva Haider MA - 09/04/2018 2:04 PM CST Rosalba Jimenez No Known Allergies Requested Prescriptions No prescriptions requested or ordered in this encounter Last Refill: 09-03-18 Last Office Visit: 05/14/2018 ET SUPERINTENDENT documented in this encounter Plan of Treatment Not on file documented as of this encounter Visit Diagnoses Not on filedocumented in this encounter Care Teams Leather Stretcher Relationship Specialty Start Date End Date Tracey Patel MD PCP - General Family Medicine 06/13/17 documented as of this encounter
--- OUTSIDE RECORDS SUMMARY | 2024-07-24 09:41 | XMS_ITS | Encounter Summary ---
Author Organization [facility] Address [facility] [facility] [place] [address] Care Team Providers Care Nub Card Tender Name Role Phone Tracey Patel MD Primary Care Provider [phone] Reason for Visit * Reason Onset Date Comments MEDICATION REFILL 02/24/2019 Encounter Details Date Type Department Care Team (Late st Contact Info) Description 02/24/2019 Refill [facility] Medical [facility] - Family Medicine [id number] [place] [phone] Tracey Patel MD [address] [place] [phone] MEDICATION REFILL Social History Tobacco Use [...] Telephone Encounter - Tracey Patel MD - 02/24/2019 10:26 AM CDT Let her know her refill has been sent in. * Telephone Encounter - Anusha Hargrove - 02/24/2019 8:34 AM CDT Rosalba Jimenez No Known Allergies Requested Prescriptions Pending Prescriptions Disp Refills ??? amphetamine-dextroamphetamine XR 24hr (ADDERALL XR) 25 MG capsule 30 capsule 0 Sig: Take 1 capsule by mouth every morning Earliest Fill Date: 02/24/19 Last Refill: 01/27/2019 Last Office Visit: 02/02/2019 * Telephone Encounter - Anusha Hargrove - 02/24/2019 8:34 AM CDTFrom: Rosalba Jimenez To: Tracey Patel MD Sent: 02/24/2019 5:40 AM CDT Subject: Medication Renewal Request Original authorizing provider: MD Rosalba Mckeon would like a refill of the following medications: amphetamine-dextroamphetamine XR 24hr (ADDERALL XR) 25 MG capsule [Tracey Patel MD] Preferred pharmacy: [id number] [phone] [facility] Comment: documented in this encounter Plan of Treatment Not on file documented as of this encounter Visit Diagnoses Not on filedocumented in this encounter Care Teams Nub Card Tender Relationship Specialty Start Date End Date Tracey Patel MD PCP - General Family Medicine 06/13/17 documented as of this encounter
--- OUTSIDE RECORDS SUMMARY | 2024-07-24 09:41 | XMS_ITS | Encounter Summary ---
Author Organization [facility] Address [facility] [facility] [place] [address] Care Team Providers Care Rrts Name Role Phone Tracey Patel MD Primary Care Provider [phone] Reason for Visit * Reason Onset Date Comments MEDICATION REFILL 11/08/2019 Encounter Details Date Type Department Care Team (Late st Contact Info) Description 11/08/2019 Refill [facility] - Family Medicine [id number] [place] [phone] [place] [address] [place] [phone] MEDICATION REFILL Social History Tobacco Use Types [...] encounter Miscellaneous Notes * Telephone Encounter - Janae Rodriguez - 11/08/2019 10:32 AM CDT Rosalba Jimenez No Known Allergies Requested Prescriptions Pending Prescriptions Disp Refills ??? amphetamine-dextroamphetamine XR 24hr (ADDERALL XR) 30 MG capsule 30 capsule 0 Sig: Take 1 capsule by mouth every morning Last Refill: 10/12/2019 Last Office Visit: 06/28/2019 documented in this encounter Plan of Treatment Not on file documented as of this encounter Visit Diagnoses Not on filedocumented in this encounter Care Teams Rrts Relationship Specialty Start Date End Date Tracey Patel MD PCP - General Family Medicine 06/13/17 documented as of this encounter
--- OUTSIDE RECORDS SUMMARY | 2024-07-24 09:41 | XMS_ITS | Encounter Summary ---
Author Organization [facility] Address [address] [facility] [address] [place] [id number] Care Team Providers Care Bankruptcy Assistant Name Role Phone Camille Costello Primary Care Provi roxanne Reason for Visit * Diagnostic Imaging (Routine) - Closed Specialty Diagnoses / Procedures Referred By Sana t Referred To Contact Diagnoses Right foot pain Procedures XR Foot Right 3+ Vw Mari Gonsales NP [address] [place] [phone] Phone: tel: [facility] Referral ID Status Reason Start Date Expiration Date Visits Re quested Visits Authorized [id number] Closed 09/27/2021 10/27/2022 1 1 Encounter Details Date Type Department Care Team (Latest Contact Info) Description 09/27/2021 10:30 AM CURRICULUM WRITER Ancillary Procedure [facility] Medical [facility] Imaging at [address] [phone] Right foot pain Social History Tobacco Use Types Packs/Day Years Used Date Smoking Tobacco: Never Assessed Comments Unknown Sex and Gender Information Value Date Recorded Sex Assigned at Not on file Legal Sex Female 7:01 PM CURRICULUM WRITER Gender Identity Not on file Sexual Orientation Not on file documented as of this encounter Plan of Treatment Not on file documented as of this encounter Procedures Procedure Name Priority Date/Time Associated Diagnosis Comments XR FOOT RIGHT 3 OR MORE VIEWS Schedule TORRIE, Read TORRIE (Appt Today, Awaiting Results) 09/27/2021 10:38 AM CURRICULUM WRITER Right foot pain documented in this encounter Results * XR Foot Right 3+ Vw (09/27/2021 10:38 AM CURRICULUM WRITER) Anatomical Region Laterality Modality Lower Extremities, Foot Right Digital Radiography 09/27/2021 10:5 2 AM CURRICULUM WRITER Narrative 09/27/2021 10:55 AM CURRICULUM WRITER EXAM DESCRIPTION: ?XR FOOT RIGHT 3 OR [...] - Electronically signed by ??Emmett Min M.D. SS D: ??09/27/2021 10:55 AM T: Report ID: [id number] Reading Location: ??[id number] Procedure Note Emmett Min MD - 09/27/2021 [...] Emmett Min M.D. SS T: Report ID: [id number] Reading Location: [id number] Mari Gonsales TUBE MILL OPERATOR IMG XR PROCEDURES Final Result documented in this encounter Visit Diagnoses Diagnosis Right foot pain Pain in soft tissues of limb documented in this encounter Care Teams Bankruptcy Assistant Relationship Specialty [place] [address] [place] [phone] PCP - General Family Medicine 09/27/21 documented as of this encounter
--- OUTSIDE RECORDS SUMMARY | 2024-07-24 09:41 | XMS_ITS | Encounter Summary ---
Author Organization [facility] [employer] [facility] Address [address] [place] [address] Care Team Providers Care Mortgage Loan Funder Name Role Phone Roxanna Acosta MD Primary Care Provider Encounter Details Date Type Department Care Team (Late st Contact Info) Description 05/14/2024 Orders Only [facility] Oncology and Hematology - [place] [address] [facility] [address] [place] [address] Michele Smith MD [address] [facility] [address] [place] [address] Iron deficiency anemia due to [...] st Contact Info) Description 08/23/2024 11:15 AM MECHANICAL MANUFACTURING ENGINEER Office Visit [facility] Oncology and Hematology - [place] [address] [facility] [address] [place] [address] Michele Smith MD [address] [facility] [address] [place] [address] Scheduled Orders Name Type Priority Associated Diagnoses Orde r Schedule COMPREHENSIVE METABOLIC PANEL Lab Routine Iron deficiency anemia due to chronic blood loss Expected: 05/14/2024, Expires: 05/14/2025 CBC WITH DIFFERENTIAL Lab Routine Iron deficiency anemia due to chronic blood loss Expected: 05/14/2024, Expires: 05/14/2025 IRON, TIBC, AND PERCENT SATURATION Lab Routine Iron deficiency anemia due to chronic blood loss Expected: 05/14/2024, Expires: 05/14/2025 FERRITIN Lab Routine Iron deficiency anemia due to chronic blood loss Expected: 05/14/2024, Expires: 05/14/2025 VITAMIN B12 AND FOLATE Lab Routine Iron deficiency anemia due to chronic blood loss Expected: 05/14/2024, Expires: 05/14/2025 documented as of this encounter Visit Diagnoses Diagnosis Iron deficiency anemia due to chronic blood loss- Primary Iron deficiency anemia secondary to blood loss (chronic) documented in this encounter Care Teams Mortgage Loan Funder Relationship Specialty Start Date End Date Roxanna Acosta MD PCP - General Family Practice 02/19/12 documented as of this encounter
--- OUTSIDE RECORDS SUMMARY | 2024-07-24 09:41 | XMS_ITS | Encounter Summary ---
Author Organization [facility] Address [address] [facility] [place] [address] Care Team Providers Care Theater Company Producer Name Role Phone Tracey Patel MD Primary Care Provider [phone] Reason for Referral * Radiology Services (Routine) - Closed Specialty Diagnoses / Procedures Referred By Contac t Referred To Contact Diagnoses Left breast lump Procedures MAMMO DIAG DIRECT DIGITAL IMAGE MONICA [id number] [place] [address] [place] [address] Referral ID Status Reason Start Date Expiration Date Visits Re quested Visits Authorized [id number] Closed 07/16/2017 01/12/2018 1 1 TS STATISTICIAN Reason for Visit * Radiology Services (Routine) - Closed Specialty Diagnoses / Procedures Referred By Contac t Referred To Contact Diagnoses Left breast lump Procedures MAMMO DIAG DIRECT DIGITAL IMAGE MONICA [id number] [place] [address] [place] [phone] Referral ID Status Reason Start Date Expiration Date Visits Re quested Visits Authorized [id number] Closed 07/16/2017 01/12/2018 1 1 Encounter Details Date Type Department Care Team (Latest Contact Info) Description 07/17/2017 9:48 AM SPORTS STATISTICIAN - 07/17/2017 10:07 AM SPORTS STATISTICIAN Hospital Encounter [facility] Breast Care [address] [facility] [address] [place], [place] [phone] [place] [address] [place] [address] Discharge Disposition: Home or Self [...] MAMMO BILAT DIAGNOSTIC Routine 07/17/2017 10:10 AM SPORTS STATISTICIAN Left breast lump documented in this encounter Results * MAMMO DIAG DIRECT DIGITAL IMAGE BILA G0202 (07/17/2017 10:10 AM SPORTS STATISTICIAN) Anatomical Region Laterality Modality Bilateral Mammography 07/17/2017 11:1 7 AM SPORTS STATISTICIAN Narrative 07/17/2017 11:24 AM SPORTS STATISTICIAN DIGITAL BILATERAL DIAGNOSTIC MAMMOGRAMS WITH CAD CORRELATION [...] if suspicious findings are present clinically. An [employer] Certified Facility. [facility] utilize EPIC as a reminder system to notify patients of their next recommended mammogram. Edited by Jennifer Stockton on 07/17/2017 11:23 AM Joyce Saldivar MD MAMMO ORDERABLES documented in this encounter Visit Diagnoses Diagnosis Left breast lump Lump or mass in breast documented in this encounter Care Teams Theater Company Producer Relationship Specialty Start Date End Date Tracey Patel MD PCP - General Family Medicine 06/13/17 documented as of this encounter
--- OUTSIDE RECORDS SUMMARY | 2024-07-24 09:42 | XMS_ITS | Encounter Summary ---
Author Organization [facility] Address [address] [place] [address] Care Team Providers Care Embryology Teacher Name Role Phone Roxanna Acosta MD Primary Care Provider Encounter Details Date Type Department Care Team (Late Contact Info) Description 12/16/2023 External Device Data STL ABSTRACTION Provider, Abstract [...] Upcoming Encounters Date Type Department Care Team ([facility] Contact Info) Description 08/23/2024 11:15 AM SANDER SETTER Office Visit [facility] Oncology and Hematology - [place] [address] [facility] [address] [place] [address] Michele Smith MD [address] [facility] [address] [place] [address] documented as of this encounter Visit Diagnoses Not on filedocumented in this encounter Care Teams Embryology Teacher Relationship Specialty Start Date End Date Roxanna Acosta MD PCP - General Family Practice 02/19/12 documented as of this encounter
--- OUTSIDE RECORDS SUMMARY | 2024-07-24 09:42 | XMS_ITS | Encounter Summary ---
Author Organization [facility] Address [address] [place] [address] Care Team Providers Care Sweet Goods Machine Operator Name Role Phone Roxanna Acosta MD Primary Care Provider Reason for Visit * Reason Comments Well Woman Exam Encounter Details Date Type Department Care Team (Latest Contact Info) Description 01/28/2018 1:30 PM CDT Office Visit [facility] EXTERIOR DESIGNER - [address] [place] [address] Enrique Mckinney MD [address] [place] [address] [place] [phone] HGSIL (high grade squamous intraepithelial lesion) on Pap smear of cervix (Primary Dx) Social History Tobacco Use Types Packs/Day Years Used Date Smoking Tobacco: Never Smokeless Tobacco: Never Alcohol Use Standard Drinks/Week Comments No 0 (1 standard drink = 0.6 oz pur e alcohol) Sex and Gender Information Value Date Recorded Sex Assigned at Not on file Gender Identity Not on file Sexual Orientation Not on file documented as of this encounter Last Filed Vital Signs Vital Sign Reading Time Taken Comments Blood Pressure 110/68 01/28/2018 1:25 PM CDT Pulse - - Temperature - - Respiratory Rate - - Oxygen Saturation - - Inhaled Oxygen Concentration - - Weight 64.9 kg (143 lb) 01/28/2018 1:25 PM CDT Height 157.5 cm (5' 2 ) 01/28/2018 1:25 PM CDT Body Mass Index 26.16 01/28/2018 1:25 PM CDT documented in this encounter Progress Notes * Enrique Mckinney MD - 01/28/2018 1:35 PM CDT History of Present Illness Rosalba Jimenez is a 37 y.o. female, presenting for repeat pap. Had HGSIL. Current symptoms none. Onset of symptoms was gradual, and has been completely resolved. She does not complain of burning with urination. She denies genital lesions at this time. Sexual history reviewed with the patient. STD Exposure: denies knowledge of risky exposure Previous history of STD HPV. The patient is HIV negative. Contraception: none. Patient Active Problem List Diagnosis Date Noted ??? HGSIL (high grade squamous intraepithelial lesion) on Pap smear of cervix 08/29/2017 ??? S/P tonsillectomy 02/19/2012 ??? Anxiety state, unspecified 11/03/2006 Current Outpatient Prescriptions on File Prior to Visit Medication Sig Dispense Refill ??? ibuprofen (MOTRIN) 600 mg tablet Take 1 Tablet (600 mg) by mouth every 6 hours as needed for Pain, Mild. 20 Tablet 0 No current facility-administered medications on file prior to visit. Allergies Allergen Reactions ??? No Known Allergies Past Medical History: Diagnosis Date ??? Patient denies relevant medical history Past Surgical History: Procedure Laterality Date ??? HX TONSILLECTOMY ??? [place] CONIZATION CERVIX,LOOP ELECTRD N/A 09/23/2017 LOCAL CERVICAL CONE LEEP performed by Enrique Mckinney MD at [facility] ??? TONSILLECTOMY Family History Problem Relation Age of Onset ??? Healthy Father ??? Healthy Mother ??? Cancer Mother Social History Substance Use Topics ??? Smoking status: Never Smoker ??? Smokeless tobacco: Never Used ??? Alcohol use No Review of Systems Gastrointestinal: negative. Genitourinary:negative. Physical Exam BP 110/68 Ht 5' 2 (1.575 m) Wt 64.9 kg (143 lb) LMP 01/24/2018 ? No BMI 26.16 kg/m?? General: alert, in no distress Heart: normal rate, regular rhythm, normal S1, S2, no murmurs, rubs, clicks or gallops. Lungs: Chest: clear to auscultation, no wheezes, rales or rhonchi, symmetric air entry. Abdomen: soft, non-tender, without masses or organomegaly Pelvic: Vulva: Bartholin's, Urethra, Leighton's normal Vagina: normal mucosa Cervix: multiparous appearance, no bleeding following Pap Uterus: normal shape and consistency Adnexa: No mass, fullness, tenderness Assessment Encounter Diagnoses Code Name Primary? R87.613 HGSIL (high grade squamous intraepithelial lesion) on Pap smear of cervix Yes Plan Orders Placed This Encounter ??? CERV/VAG CYTOPATH, THIN PREP PRESSER AND BLOCKER KNITTED GOODS W/RFLX HPV documented in this encounter Plan of Treatment Upcoming Encounters Date Type Department Care Team (Late st Contact Info) Description 08/23/2024 11:15 AM MANAGER RESPIRATORY Office Visit [facility] Oncology and Hematology [facility] [address] [facility] [address] [place] [address] Michele Smith MD [address] [facility] [address] [place] [address] documented as of this encounter Procedures Procedure Name Priority Date/Time Associated Diagnosis Comments CERV/VAG CYTO SCREEN PAP RLFX HPV Routine 01/28/2018 1:34 PM CDT HGSIL (high grade squamous intraepithelial lesion) on Pap smear of cervix documented in this encounter Results * (ABNORMAL) CERV/VAG CYTO SCREEN PAP RLFX HPV (01/28/2018 1:34 PM CDT) Pathologist [facility] CLINICAL INFORMATION SCREENING 02/03/2018 11:58 AM CDT [facility] LAST MENSTRUAL PERIOD SEE COMMENT 02/03/2018 11:58 AM CDT [facility] Comment:INFORMATION NOT PROV IDED PREV PAP: SEE COMMENT 02/03/2018 11:58 AM CDT [facility] Comment:INFORMATION NOT PROV IDED PREV BX: SEE COMMENT 02/03/2018 11:58 AM CDT [facility] Comment:INFORMATION NOT PROV IDED SOURCE Endocervix 02/03/2018 11:58 AM CDT [facility] ADEQUACY: SEE COMMENT 02/03/2018 11:58 AM CDT [facility] Comment: Satisfactory for evaluation. Endocervical/transformation zone component present. Age and/or menstrual status not provided GENERAL CATEGORIZATION: SEE COMMENT(A) 02/03/2018 11:58 AM CDT [facility] Comment:EPITHELIAL CELL ABNO RMALITY PAP INTERP SEE COMMENT(A) 02/03/2018 11:58 AM CDT [facility] Comment:High Grade Squamous Intraepithelial Lesion (HSIL) COMMENT SEE COMMENT 02/03/2018 11:58 AM CDT [facility] Comment: This Pap test has been evaluated with computer assisted technology. To assist in maintaining the highest degree of accuracy and correlation between cytologic and histologic findings, please forward follow-up data for subsequent biopsies performed by any other non-[facility] laboratory. Suggest clinical correlation and follow-up as clinically appropriate PIPE COVERER AND INSULATOR: SEE COMMENT 2017 11:58 AM CDT [facility] Comment: MEF, CT(ASCP) CT screening location: [place] [address] [address] [place] [address] PATHOLOGIST SEE COMMENT 02/03/2018 11:58 AM CDT [facility] Comment: Barak Shepherd M.D., Board Certified in Anatomic Pathology and Cytopathology. (electronic signature) EXPLANATORY NOTE SEE COMMENT 018 11:58 AM CDT [facility] Comment: EXPLANATORY NOTE: The Pap is a screening test for cervical cancer. It is not a diagnostic test and is subject to false negative and false positive results. It is most reliable when a satisfactory sample, regularly obtained, is submitted with relevant clinical findings and history, and when the Pap result is evaluated along with historic and current clinical information. Genital SWAB OF ENDOCERVIX / Unknown Collection / Unknown 01/28/2018 1:34 PM CDT 01/28/2018 8:32 PM CDT Narrative [facility] - 02/03/2018 11:58 AM CDT Performing Organization Information: ?Site ID: [id number] ?Name: [employer] ?Address: [facility] hospital Administration [place]ite[place] [id number] ?Director: Parth Herrera Enrique Mckinney MD PATHOLOGY/CYTOLOGY O RDERABLES [facility] documented in this encounter Visit Diagnoses Diagnosis HGSIL (high grade squamous intraepithelial lesion) on Pap smear of cervix- Primary documented in this encounter Care Teams Sweet Goods Machine Operator Relationship Specialty Start Date End Date Roxanna Acosta MD PCP - General Family Practice 02/19/12 documented as of this encounter
--- OUTSIDE RECORDS SUMMARY | 2024-07-24 09:42 | XMS_ITS | Encounter Summary ---
Author Organization [facility] Address [address] [place] [address] Care Team Providers Care Enterer Name Role Phone Roxanna Acosta MD Primary Care Provider Encounter Details Date Type Department Care Team (Late Contact Info) Description 08/12/2023 External Device Data STL ABSTRACTION Provider, Abstract [...] Upcoming Encounters Date Type Department Care Team ([facility] Contact Info) Description 08/23/2024 11:15 AM RING STRIKER Office Visit [facility] Oncology and Hematology - [place] [address] [place] [address] Michele Smith MD [address] [facility] [address] [place] [address] documented as of this encounter Visit Diagnoses Not on filedocumented in this encounter Care Teams Enterer Relationship Specialty Start Date End Date Roxanna Acosta MD PCP - General Family Practice 02/19/12 documented as of this encounter
--- OUTSIDE RECORDS SUMMARY | 2024-07-24 09:42 | XMS_ITS | Encounter Summary ---
Author Organization [facility] Address [address] [place] [address] Care Team Providers Care Head Up Operator Helper Name Role Phone Roxanna Acosta MD Primary Care Provider [phone] Reason for Visit * Reason Onset Date Comments Medication Refill 12/06/2023 Encounter Details Date Type Department Care Team (Late st Contact Info) Description 12/06/2023 Refill [facility] BRANCH SPECIALIST - Medical [address] [address] Enrique Mckinney MD [address] [address] Social History Tobacco Use Types Packs/Day Years [...] encounter Miscellaneous Notes * Telephone Encounter - Camilla Malcolm - 12/08/2023 9:20 AM CDT Outcome: The requested medication has been approved and will be sent electronically to the patient's pharmacy on file. (APT Adherence: Q 6MTH or Q 12MTH) Appt scheduled: No Recent Visits Date Type Provider Dept 06/12/23 Office Visit Enrique Mckinney MD [facility] Deputy Jailer Dil[place] Phyllis S[address] Showing recent visits within past 540 days with a meds authorizing provider and meeting all other requirements Future Appointments No visits were found meeting these conditions. Showing future appointments within next 150 days with a meds authorizing provider and meeting all other requirements Medication being requested: Requested Prescriptions Pending Prescriptions Disp Refills tranexamic acid 650 mg tablet (LYSTEDA) 30 Tablet 3 Sig: Take 2 Tablets (1,300 mg) by mouth 3 times daily. There is no refill protocol information for this order Last Refill Date: 06/12/23 # of Days: 30 # of Refills: 3 Thyroid medications- Q12MTH OV and TSH Lab Results Component Value Date/Time TSH 2.20 06/12/2023 11:18 AM Cholesterol medications- Q12MTH OV and Lipid No results found for: CHOLTOT , HDL , LDLCALC , LDLDIRECT , TRIGLYCERIDE DM medications- Q6MTH OV and A1C, MICROALBUMIN LAB Q12MTH HTN medications- Q6MTH OV Lab Results Component Value Date/Time GLUCOSE 100 (H) 06/16/2023 04:03 PM Lab(s) Needed: No Patient call back number: Pharmacy Retail/Mail Order: [id number] - [place], [place] - [address] [facility] [address]) [address] documented in this encounter Plan of Treatment Upcoming Encounters Date Type Department Care Team (Late st Contact Info) Description 08/23/2024 11:15 AM JAVA APPLICATION DEVELOPER Office Visit [facility] Oncology and Hematology - [place] [address] [place] [address] Michele Smith MD [address] [facility] [address] [place] [address] documented as of this encounter Visit Diagnoses Not on filedocumented in this encounter Care Teams Head Up Operator Helper Relationship Specialty Start Date End Date Roxanna Acosta MD PCP - General Family Practice 02/19/12 documented as of this encounter
--- OUTSIDE RECORDS SUMMARY | 2024-07-24 09:42 | XMS_ITS | Encounter Summary ---
Author Organization [facility] Address [address] [place] [address] Care Team Providers Care Shoe Stainer Name Role Phone Roxanna Acosta MD Primary Care Provider [phone] Encounter Details Date Type Department Care Team (Late Contact Info) Description 12/02/2023 External Device Data STL ABSTRACTION Provider, Abstract [...] Upcoming Encounters Date Type Department Care Team ([facility] Contact Info) Description 08/23/2024 11:15 AM TUTOR COORDINATOR Office Visit [facility] Oncology and Hematology - [place] [address] [address] [place] [address] Michele Smith MD [address] [facility] [address] [place] [address] documented as of this encounter Visit Diagnoses Not on filedocumented in this encounter Care Teams Shoe Stainer Relationship Specialty Start Date End Date Roxanna Acosta MD PCP - General Family Practice 02/19/12 documented as of this encounter
--- OUTSIDE RECORDS SUMMARY | 2024-07-24 09:42 | XMS_ITS | Encounter Summary ---
Author Organization [facility] Address [address] [facility] Attn: [place] [address] Care Team Providers Care Wire Bender Name Role Phone Roxanna Acosta MD Primary Care Provider Encounter Details Date Type Department Care Team (Latest Contact Info) Description 06/16/2023 Travel Social History Tobacco Use Types Packs/Day [...] st Contact Info) Description 08/23/2024 11:15 AM SCRIPT MANAGER Office Visit [facility] Oncology and Hematology - [place] [address] [facility] [address] [facility] [address] [place] [address] Michele Smith MD [address] [facility] [address] [place] [address] documented as of this encounter Visit Diagnoses Not on filedocumented in this encounter Care Teams Wire Bender Relationship Specialty Start Date End Date Roxanna Acosta MD PCP - General Family Practice 02/19/12 documented as of this encounter
--- OUTSIDE RECORDS SUMMARY | 2024-07-24 09:42 | XMS_ITS | Encounter Summary ---
Author Organization [facility] Address [address] [place] [address] Care Team Providers Care Flower Shop Laborer/Designer Name Role Phone Roxanna Acosta MD Primary Care Provider Encounter Details Date Type Department Care Team (Late Contact Info) Description 09/30/2023 External Device Data STL ABSTRACTION Provider, Abstract [...] Upcoming Encounters Date Type Department Care Team ([facility] Contact Info) Description 08/23/2024 11:15 AM MERCHANDISE DELIVERER Office Visit [facility] Oncology and Hematology - [place] [address] [facility] [address] [place] [address] Michele Smith MD [address] [facility] [address] [place] [address] documented as of this encounter Visit Diagnoses Not on filedocumented in this encounter Care Teams Flower Shop Laborer/Designer Relationship Specialty Start Date End Date Roxanna Acosta MD PCP - General Family Practice 02/19/12 documented as of this encounter
--- OUTSIDE RECORDS SUMMARY | 2024-07-24 09:42 | XMS_ITS | Encounter Summary ---
Author Organization [facility] Address [address] [place] [address] Care Team Providers Care Hydraulic Spinner Name Role Phone Roxanna Acosta MD Primary Care Provider [phone] Reason for Visit * Auth/Cert (Routine) Specialty Diagnoses / Procedures Referred By Contac t Referred To Contact Procedures AR CONIZATION CERVIX,LOOP ELECTRD Referral ID Status Reason Start Date Expiration Date Visits Re quested Visits Authorized [id number] 02/12/2018 03/15/2019 1 1 Encounter Details Date Type Department Care Team (Late st Contact Info) Description 03/24/2018 8:10 AM CDT - 03/24/2018 9:10 AM CDT Surgery [facility] Operating Room [address] [place] [address] Enrique Mckinney MD [address] [facility] [address] [place] [address] LOCAL CERVICAL CONE LEEP Surgery Details Date/Time Status Location OR Service Patient Class Case Class Case Type Trauma Case? 03/24/2018 8:10 AM Posted [facility] OR MAIN MP2-O Gynecology Surgical OP/Extended Care Elective No Panel 1 Procedure LRB Anes Op Region Wound Class Comments LOCAL CERVICAL CONE LEEP N/A General Cervix Clean Contaminated-II BMI 26 Surgeon Surgeon Role Service Panel Enrique Mckinney MD Primary Gynecology 1 Case Notes [facility]--PP--CPT [id number] documented in this encounter Social History Tobacco Use Types Packs/Day Years Used Date Smoking Tobacco: Never Smokeless Tobacco: Never Alcohol Use Standard Drinks/Week Comments Yes 0 (1 standard drink = 0.6 oz pur e alcohol) social Sex and Gender Information Value Date Recorded Sex Assigned at Not on file Gender Identity Not on file Sexual Orientation Not on file documented as of this encounter Last Filed Vital Signs Vital Sign Reading Time Taken Comments Blood Pressure 101/65 03/24/2018 9:05 AM CDT Pulse 78 03/24/2018 7:37 AM CDT Temperature 36.3 ??C (97.4 ??F) 03/24/2018 8:45 AM CD T Respiratory Rate 24 03/24/2018 9:05 AM CDT Oxygen Saturation 100% 03/24/2018 9:05 AM CDT Inhaled Oxygen Concentration - - Weight 63 kg (139 lb) 03/24/2018 7:37 AM CDT Height 157.5 cm (5' 2 ) 03/24/2018 7:37 AM CDT Body Mass Index 25.42 03/24/2018 7:37 AM CDT documented in this encounter Discharge Instructions * Attachments The following attachments cannot be sent through Care Everywhere. * LEEP (Loop Electrosurgical Excision Procedure): Post-op (Sami) documented in this encounter Medications at Time of Discharge Medication Sig Dispensed Refills Start Date End Date ibuprofen (MOTRIN) 600 mg tablet Take 1 Tablet (600 mg) by mouth every 6 hours as needed for Pain, Mild. 20 Tablet 09/23/2017 ibuprofen (MOTRIN) 600 mg tablet Take 1 Tablet (600 mg) by mouth every 6 hours as needed for Pain, Mild. 30 Tablet 03/24/2018 06/12/2023 documented as of this encounter H&P Notes * Maximus Lundberg MD - 03/24/2018 7:15 AM CDT WIRE FENCE BUILDER History & Physical CC: LEEP HPI: Rosalba Jimenez is a 37 y.o. who presents for LEEP for HSIL s/p LEEP with TRUMAN 3 at margins in September,. She denies nausea, vomiting, diarrhea, dysuria or hematuria.?? Her primary Retail Service Specialist is Enrique Mckinney MD. ROS: As above. Denies chest pain, shortness of breath, headache, or vision symptoms. OB Hx: OB History Para Term AB Living 6 4 4 2 4 SAB TAB Ectopic Multiple Live Births 2 1 # Outcome Date GA Lbr Fran/2nd Weight Sex Delivery Anes PTL Lv 6 Term 08/16/09 40w0d 02:04 / 00:05 3430 g (7 lb 9 oz) M Vag-Spont Local N ABIODUN Comments: No observed anomalies 5 Term 10/25/07 2948 g (6 lb 8 oz) M Vag-Spont None 4 SAB 2006 3 SAB 2006 2 Term 11/2005 3402 g (7 lb 8 oz) M Vag-Spont None 1 Term 11/2004 F Vag-Spont None PMHx: Past Medical History: Diagnosis Date ??? Patient denies relevant medical history PSHx: Past Surgical History: Procedure Laterality Date ??? HX TONSILLECTOMY ??? AR CONIZATION CERVIX,LOOP ELECTRD N/A 09/23/2017 LOCAL CERVICAL CONE LEEP performed by Enrique Mckinney MD at [facility] ??? TONSILLECTOMY FHx: Negative for breast, colon, or ovarian cancer. Negative for bleeding disorders or genetic tendencies. SHx: denies tobacco, alcohol, or illicit drug use Medications: No current facility-administered medications on file prior to encounter. Current Outpatient Prescriptions on File Prior to Encounter Medication Sig Dispense Refill ??? ibuprofen (MOTRIN) 600 mg tablet Take 1 Tablet (600 mg) by mouth every 6 hours as needed for Pain, Mild. 20 Tablet 0 Allergies Allergen Reactions ??? No Known Allergies Physical Exam: Vitals: 03/04/18 1532 03/24/18 0737 BP: 95/65 BP Location: Left arm Patient Position (BP): Sitting Pulse: 78 Resp: 16 Temp: 97.6 ??F (36.4 ??C) TempSrc: Temporal SpO2: 100% Weight: 63 kg (139 lb) 63 kg (139 lb) Height: 5' 2 (1.575 m) 5' 2 (1.575 m) General: well-developed, well-nourished female in NAD HEENT: normocephalic, atraumatic, moist mucus membranes Heart: acyanotic Lungs: non-labored breathing Abdomen: soft, nontender, no rebound or guarding Extremities: no clubbing, cyanosis, or edema. No calf tenderness No results found for this visit on 03/24/18 (from the past 24 hour(s)). Assessment/Plan: 37 y.o. female who presents for LEEP 1. The risks, benefits, and alternatives of the operation have been discussed with the patient. Shevoices understanding and agreement with the plan to proceed with LEEP. She is feeling well and has no questions or concerns at this time. Maximus Lundberg MD OBGYN PGY1 Pager [phone] 03/24/18 8:03 AM documented in this encounter OR Notes * Zuleyma-OP - Celina Washburn RN - 03/24/2018 9:37 AM CDT 0937 C/o Abdominal cramping and vaginal burning, rates it a 7/10. Food given. Urinated and states burning has decreased. Percocet 5/325 mg po given. 1010 Patient states pain much better. Abdomen soft/ minimal pain/ no vaginal drainage noted. Instructions reviewed w/ patient and spouse, states understanding. Tolerated fluids/ food. D/c per protocol. * Operative Report - Enrique Mckinney MD - 03/24/2018 8:43 AM CDT Operative Report : [facility] Patient: Rosalba Jimenez / 37 y.o. / female : 1980 Date: 03/24/2018 [facility]: [id number] Procedure: LEEP Date of Surgery: 03/24/2018 Pre-operative Diagnosis: TRUMAN III Post-operative Diagnosis: same Surgeon: Enrique Mckinney MD Ceramics Teacher: Diamond COBIAN Anesthesia: General anesthesia with LMA, local 10 cc 1/4 sensorcaine with epi EBL: Minimal Specimen sent to pathology: Transformation zone of the cervix Indications: TRUMAN 3. Risks of the procedure were explained to the patient including bleeding requiring blood transfusion, infection, injury to surrounding organs, anesthetic risks, DVT/PE, , etc.Questions were answered and the patient freely consented. Findings: Schiller non staining 10-1 of T-zone Description of Procedure: The patient was taken to the operating room with IVFs running. She was then given a general anesthetic without difficulty. She was then placed in the dorsal lithotomy position, using Kam stirrups. A time-out procedure was performed and all members of the OR team agreed on the patient and plan. A coated bivalve speculum was placed in the vagina with a smoke evacuator attached. Lugol's solution was then applied to the cervix and surrounding vaginal tissue. Cervical dyplasia was noted with decreased uptake of iodine at the 10-1 o'clock position. A 20 x 12 mm loop electrode was then used to remove the high grade lesion & surrounding transformation zone. A second top hat pass was then perfomed using a top hat. The LEEP bed was made hemostatic with a 5mm ball cautery followed by monsel's paste. Hemostatis was noted. Patient tolerated the procedure well. Sponge, lap, needle, and instrument counts were correct X2. The patient was taken out of the dorsal lithotomy position and awakened from anesthesia. She was then taken to the recovery room in stable condition. Disposition: Discharge to home when meets criteria Enrique Mckinney MD * Zuleyma-OP - Jennifer Lopez RN - 03/24/2018 8:30 AM CDT No prep completed due to visualization required for the LEEP procedure documented in this encounter Plan of Treatment Upcoming Encounters Date Type Department Care Team (Late st Contact Info) Description 08/23/2024 11:15 AM GOLD BLOWER Office Visit [facility] Oncology and Hematology - [place] [address] [place] [address] Michele Smith MD [address] [facility] [address] [place] [address] documented as of this encounter Procedures Procedure Name Priority Date/Time Associated Diagnosis Comments PATHOLOGY Pathology 03/24/2018 8:34 AM CDT POC HEMOGLOBIN Routine 03/24/2018 7:47 AM CDT RETIRED LOCAL CERVICAL CONE LEEP 03/24/2018 7:45 AM CDT HGSIL Case Notes [facility]--PP--CPT [id number] POC , URINE Routine 03/24/2018 7:38 AM CDT documented in this encounter Results * PATHOLOGY (03/24/2018 8:34 AM CDT) Pathologist [facility] CASE REPORT Surgical Pathology Report ? Case: [id number] ? Authorizing Provider: ??Enrique Mckinney MD ? Collected: ? 03/24/2018 08:34 AM ? Ordering Location: ? [facility] ?Received: ?03/24/2018 10:20 AM ? Operating Room ? Pathologist: ? Stephy Mcneil MD ? Specimens: ?? A) - Cervix, cervix stitich at 12 o'clock ? B) - Endocervix ? 8 3:59 PM T [facility] FINAL DIAGNOSIS Cervix, LEEP: - Transformation zone mucosa with high grade squamous intraepithelial lesion (TRUMAN 2-3). - Margins negative for HSIL. - Negative for invasive carcinoma. Endocervix, LEEP: - Benign endocervical mucosa. See comment. 8 3:59 PM [facility] IMEN DESCRIPTION (A) Cervix, stitch at 12 o'clock; (B) endocervix. 8 3:59 PM [facility] OPERATIVE PROCEDURE Local cervical cone LEEP, BMI 26. 8 3:59 PM T [facility] CLINICAL DIAGNOSIS High-grade squamous intraepithelial lesion. 8 3:59 PM [facility] GROSS DESCRIPTION The specimens are received in two containers labeled Rosalba Jimenez. Part A is additionally labeled cervix, stitch at 12 o'clock and consists of two pieces of pink cervical tissue that are sutured together. One of the pieces has a single suture along one side, indicating the 12 o'clock position. The larger, 12 o'clock piece is 3.8 x 1.9 x 1 cm. The smaller, 6 o'clock piece is 3 x 1.7 x 0.9 cm. The endocervical margins are inked blue and the remainder of the tissue black. There is also an unoriented piece of pink tissue in the container that is 1.9 x 1.5 x 0.4 cm. The unoriented piece is inked half blue and half black. The oriented pieces are radially sectioned and entirely submitted as follows: A1 and A2-12 o'clock to 3 o'clock; A3 and A4-3 o'clock to 6 o'clock; A5-6 o'clock to 9 o'clock; A6 and A7-9 o'clock to 12 o'clock. The unoriented piece is serially sectioned and entirely submitted in cassette A8. Part B is additionally labeled endocervix and consists of a single piece of unoriented pink tissue that is 2.5 x 0.2 to 1.3 x 0.6 cm. One half of the specimen is inked blue and the other half black. The tissue is serially sectioned and entirely submitted in cassettes B1 and B2. MICHAEL/laxmi 3:59 PM CDT [facility] MICROSCOPIC DESCRIPTION Received are slides labeled [id number] and Rosalba Jimenez. The patient's history of HSIL on a preceding LEEP ([id number]) and subsequent Pap test demonstrating HSIL (January 2018) is noted. Sections of the cervical LEEP (part A) show high grade squamous intraepithelial lesion (TRUMAN 2-3). p16 immunohistochemistry is performed to elucidate the relationship of HSIL to the inked margin and is negative (block A5). Florid squamous metaplasia is confirmed by negative p16 immunostains (blocks A6 and A7). The endocervical LEEP consists of benign endocervical mucosa. 3:59 PM CDT [facility] COMMENT Special stain and/or immunohistochemical results are interpreted with controls that demonstrate appropriate staining reactions. Note on use of immunocytochemistry reagents: This test was developed and its performance characteristic determined by [facility], Department of Laboratory Medicine. It has not been cleared or approved by the U.S. Food and Drug Administration. The FDA has determined that such clearance or approval is not necessary. The test is used for clinical purpose. It should not be regarded as investigational or for research. This laboratory is certified to perform high complexity testing. Case types starting with WS, WF, WB and WH are performed by [address], [address]. All other case types are performed by [place] [address] [facility] [place], [address]. 08/23/201 8 3:59 PM CDT [facility] Tissue CERVIX UTERI STRUCTURE / Unknown Collection / Unknown 03/24/2018 8:34 AM CDT 03/24/2018 10:20 AM CDT Tissue specimen (specimen) SWAB OF ENDOCERVIX / Unknown 03/24/2018 8:34 AM CDT 03/24/2018 10:20 AM CDT Enrique Mckinney MD PATHOLOGY/CYTOLOGY O RDERABLES Performing Organization Address City/[facility]/ZIP Co de Phone Number [facility] CLIA# [id number] [address] [place] [address] * (ABNORMAL) POC HEMOGLOBIN (03/24/2018 7:47 AM CDT) HEMOGLOBIN POC 11.4(L) 11.8 - 14.8 g/dL 03/24/2018 10:42 AM CDT [facility] Blood, capillary 03/24/2018 7:47 AM CDT 03/24/2018 10:42 AM CDT Enrique Mckinney MD POINT OF CARE TESTIN Josafat Performing Organization Address [facility] Co de Phone Number [facility] CLIA# [id number] [address] [place] [address] * POC , URINE (03/24/2018 7:38 AM CDT) HCG QUAL URINE Negative Negative 03/24/2018 10:31 AM CDT [facility] Urine 03/24/2018 7:38 AM CDT 03/24/2018 10:30 AM CDT Enrique Mckinney MD POINT OF CARE TESTSHUN G Performing Organization Address [facility]/ZIP Co de Phone Number [facility] CLIA# [id number] [address] [place] [address] documented in this encounter Visit Diagnoses Not on filedocumented in this encounter Administered Medications Inactive Administered Medications - up to 3 most recent administrations Medication Order MAR Action Action Date Dose Rate Site bupivacaine-EPINEPHrin e (PF) (SENSORCAINE MPF WITH EPI) 0.25 %-1:200,000 injection INTRA-PROCEDURE PRN, Starting on Fri03/24/18 at 0830, Until Fri03/24/18 at 0842, Routine, Intra-op Given 03/24/2018 8:30 AM CDT 10 mL Operative Site ferric subsulfate (ASTRINGYN) topical solution INTRA-PROCEDURE PRN, Starting on Fri03/24/18 at 0831, Until Fri03/24/18 at 0842, Routine, Intra-op Given 03/24/2018 8:31 AM CDT 5 mL Operative Site lactated Ringers solution IV, at 150 mL/hr, CONTINUOUS, Starting on Fri03/24/18 at 0800, Until Fri03/24/18 at 1219, Routine New Bag 03/24/2018 7:50 AM CDT 150 mL/hr morphine injection 4 mg 4 mg, IV, POST-PROCEDURE Q 5 MINUTES PRN, 2 doses, Starting on Fri03/24/18 at 0932, Until Fri03/24/18 at 1219, Pain, Break-Through, Pain, Mild, Pain, Moderate, Pain, Severe, Routine, Post-op Phase II oxyCODONE-acetaminophe n (PERCOCET) 5-325 mg per tablet 1 Tablet 1 Tablet, Oral, EVERY 4 HOURS PRN, 1 dose, Starting on Fri03/24/18 at 0927, Until Fri03/24/18 at 0937, Pain, Moderate, Routine Given 03/24/2018 9:37 AM CDT 1 Tablet potassium iodide (LUGOLS) 5 % solution INTRA-PROCEDURE PRN, Starting on Fri03/24/18 at 0831, Until Fri03/24/18 at 0842, Routine, Intra-op Given 03/24/2018 8:31 AM CDT 5 mL Operative Site documented in this encounter Active and Recently Administered Medications Times are shown in CDT. Scheduled Medication Order 03/22/2018 03/23/2018 03/24/2018 bupivacaine-EPINEPHrine (SENSORCAINE-EPINEPHRINE) 0.25 %-1:200,000 injection 75 mg 75 mg (30 mL), Infiltration, ONE TIME ONLY, 1 dose, On Fri03/24/18 at 0800, Routine, Intra-op 0800 (Due) ferric subsulfate (MONSEL'S) topical sloution 8 mL Topical, ONE TIME ONLY, 1 dose, On Fri03/24/18 at 0800, Routine, Intra-op 0800 (Due) potassium iodide (LUGOLS) 5 % solution 0.1 mL 0.1 mL (16 mg), Oral, ONE TIME ONLY, 1 dose, On Fri03/24/18 at 0800, Routine, Intra-op 0800 (Due) Continuous Medication Order 03/22/2018 03/23/2018 03/24/2018 lactated Ringers solution IV, at 150 mL/hr, CONTINUOUS, Starting on Fri03/24/18 at 0800, Until Fri03/24/18 at 1219, Routine 0750 (New Bag - Prov ider: Tracey Noonan RN)0841 (Fluid Volume - Provider: YFN Robin) PRN Medication Order 03/22/2018 03/23/2018 03/24/2018 bupivacaine-EPINEPHrine (PF) (SENSORCAINE MPF WITH EPI) 0.25 %-1:200,000 injection (CANCELED) INTRA-PROCEDURE PRN, Starting on Fri03/24/18 at 0830, Until Fri03/24/18 at 0842, Routine, Intra-op 0830 (Given - Provid er: Maximus Lundberg MD) ferric subsulfate (ASTRINGYN) topical solution (CANCELED) INTRA-PROCEDURE PRN, Starting on Fri03/24/18 at 0831, Until Fri03/24/18 at 0842, Routine, Intra-op 0831 (Given - Provid er: Maximus Lundberg MD) morphine injection 4 mg 4 mg, IV, POST-PROCEDURE Q 5 MINUTES PRN, 2 doses, Starting on Fri03/24/18 at 0932, Until Fri03/24/18 at 1219, Pain, Break-Through, Pain, Mild, Pain, Moderate, Pain, Severe, Routine, Post-op Phase II oxyCODONE-acetaminophen (PERCOCET) 5-325 mg per tablet 1 Tablet (COMPLETED) 1 Tablet, Oral, EVERY 4 HOURS PRN, 1 dose, Starting on Fri03/24/18 at 0927, Until Fri03/24/18 at 0937, Pain, Moderate, Routine 0937 (Given - Provid er: Celina Washburn RN) potassium iodide (LUGOLS) 5 % solution (CANCELED) INTRA-PROCEDURE PRN, Starting on Fri03/24/18 at 0831, Until Fri03/24/18 at 0842, Routine, Intra-op 0831 (Given - Provid er: Maximus Lundberg MD) documented in this encounter Care Teams Hydraulic Spinner Relationship Specialty Start Date End Date Roxanna Acosta MD PCP - General Family Practice 02/19/12 documented as of this encounter
--- OUTSIDE RECORDS SUMMARY | 2024-07-24 09:42 | XMS_ITS | Encounter Summary ---
Author Organization [facility] Address [address] [place] [address] Care Team Providers Care Membership Correspondent Name Role Phone Roxanna Acosta MD Primary Care Provider [phone] Encounter Details Date Type Department Care Team (Late Contact Info) Description 09/22/2023 External Device Data STL ABSTRACTION Provider, Abstract [...] Encounters Date Type Department Care Team ([facility] Contact Info) Description 08/23/2024 11:15 AM EXERCISE SCIENCE INTERNSHIP Office Visit [facility] Oncology and Hematology - [place] [address] [facility] [address] [facility] [place] [address] Michele Smith MD [address] [facility] [address] [place] [address] documented as of this encounter Visit Diagnoses Not on filedocumented in this encounter Care Teams Membership Correspondent Relationship Specialty Start Date End Date Roxanna Acosta MD PCP - General Family Practice 02/19/12 documented as of this encounter
--- OUTSIDE RECORDS SUMMARY | 2024-07-24 09:42 | XMS_ITS | Encounter Summary ---
Author Organization [facility] Address [address] [place] [address] Care Team Providers Care Typewriter Aligner Name Role Phone Roxanna Acosta MD Primary Care Provider Encounter Details Date Type Department Care Team (Late Contact Info) Description 01/20/2024 External Device Data STL ABSTRACTION Provider, Abstract [...] Upcoming Encounters Date Type Department Care Team ([facility] Contact Info) Description 08/23/2024 11:15 AM TEXTILE CHEMIST Office Visit [facility] Oncology and Hematology - [place] [facility] [facility] [address] [place] [address] Michele Smith MD [address] [facility] [address] [place] [address] documented as of this encounter Visit Diagnoses Not on filedocumented in this encounter Care Teams Typewriter Aligner Relationship Specialty Start Date End Date Roxanna Acosta MD PCP - General Family Practice 02/19/12 documented as of this encounter
--- OUTSIDE RECORDS SUMMARY | 2024-07-24 09:42 | XMS_ITS | Encounter Summary ---
Author Organization [facility] Address [address] [place] [address] Care Team Providers Care Dry House Wheeler Name Role Phone Roxanna Acosta MD Primary Care Provider [phone] Reason for Visit * Reason Onset Date Comments Needs Form Or Letter Filled Out 06/18/2023 Encounter Details Date Type Department Care Team (Late st Contact Info) Description 06/18/2023 Telephone [facility] Women's Health Clinical Support [address] [place] [address] Bin Keen RN Needs Form Or Letter Filled Out Social History Tobacco Use Types Packs/Day Years [...] encounter Miscellaneous Notes * Telephone Encounter - Bin Keen RN - 06/18/2023 9:34 AM NETWORK DESIGNER Received call from Rosalba- she was in the hospital 06/16-06/17 for vaginal bleeding requiring blood transfusion- seen by [facility]. She is needing a return to work letter stating she is cleared. Letter provided and faxed to [phone] ORK DESIGNER documented in this encounter Plan of Treatment Upcoming Encounters Date Type Department Care Team (Late st Contact Info) Description 08/23/2024 11:15 AM NETWORK DESIGNER Office Visit [facility] Oncology and Hematology - [place] [facility] [address] [place] [address] Michele Smith MD [address] [facility] [address] [place] [address] documented as of this encounter Visit Diagnoses Not on filedocumented in this encounter Care Teams Dry House Wheeler Relationship Specialty Start Date End Date Roxanna Acosta MD PCP - General Family Practice 02/19/12 documented as of this encounter
--- OUTSIDE RECORDS SUMMARY | 2024-07-24 09:42 | XMS_ITS | Encounter Summary ---
Author Organization [facility] Address [address] [place] [address] Care Team Providers Care Stuffed Casing Tier Name Role Phone Roxanna Acosta MD Primary Care Provider Encounter Details Date Type Department Care Team (Late Contact Info) Description 11/07/2023 External Device Data STL ABSTRACTION Provider, Abstract [...] Upcoming Encounters Date Type Department Care Team ([facility] Contact Info) Description 08/23/2024 11:15 AM PIPE FINISHING SUPERVISOR Office Visit [facility] Oncology and Hematology - [place] [facility] [address] [place] [address] Michele Smith MD [address] [facility] [address] [place] [address] documented as of this encounter Visit Diagnoses Not on filedocumented in this encounter Care Teams Stuffed Casing Tier Relationship Specialty Start Date End Date Roxanna Acosta MD PCP - General Family Practice 02/19/12 documented as of this encounter
--- OUTSIDE RECORDS SUMMARY | 2024-07-24 09:42 | XMS_ITS | Encounter Summary ---
Author Organization [facility] Address [address] [place] [address] Care Team Providers Care Warehouse Associate Driver Name Role Phone Roxanna Acosta MD Primary Care Provider Encounter Details Date Type Department Care Team (Late st Contact Info) Description 06/13/2023 Orders Only [facility] COMMUNITY AFFAIRS MANAGER - [address] [place] [address] Enrique Mckinney MD [address] [facility] [address] [facility] [place] [address] Acute blood loss anemia (Primary Dx) Social History Tobacco Use Types [...] st Contact Info) Description 08/23/2024 11:15 AM COLLAR CUTTER Office Visit [facility] Oncology and Hematology - [place] [address] [facility] [address] [place] [address] Michele Smith MD [address] [facility] [address] [place] [address] documented as of this encounter Procedures Procedure Name Priority Date/Time Associated Diagnosis Comments IRON, TIBC, AND PERCENT SATURATION Routine 06/13/2023 2:02 PM COLLAR CUTTER Acute blood loss anemia FERRITIN Routine 06/13/2023 2:02 PM COLLAR CUTTER Acute blood loss anemia documented in this encounter Results * (ABNORMAL) FERRITIN (06/13/2023 2:02 PM COLLAR CUTTER) FERRITIN 1(L) 16 - 232 ng/mL [facility] Comment: FASTING:NO FASTING: NO Test Performed at: [facility] [address] [place], [place] ??[address] Parth Herrera MD Blood 06/13/2023 2:02 PM COLLAR CUTTER 06/13/2023 2:03 PM COLLAR CUTTER Enrique Mckinney MD CHEMISTRY ORDERABLES [facility] [phone] [facility] [address] [place] [address] * (ABNORMAL) IRON, TIBC, AND PERCENT SATURATION (06/13/2023 2:02 PM COLLAR CUTTER) IRON 11(L) 40 - 190 mcg/dL [facility] TIBC 529(H) 250 - 450 mcg/dL (calc) [facility] IRON % SATURATION 2(L) 16 - 45 % (calc) [facility] Comment: FASTING:NO FASTING: NO ?[facility] ?[address] ?[place] ?[id number] Blood 06/13/2023 2:0 2 PM COLLAR CUTTER 06/13/2023 2:03 PM COLLAR CUTTER Enrique Mckinney MD CHEMISTRY ORDERABLES [facility] [phone] [employer] [facility] [address] [place] [address] documented in this encounter Visit Diagnoses Diagnosis Acute blood loss anemia- Primary Acute posthemorrhagic anemia documented in this encounter Care Teams Warehouse Associate Driver Relationship Specialty Start Date End Date Roxanna Acosta MD PCP - General Family Practice 02/19/12 documented as of this encounter
--- OUTSIDE RECORDS SUMMARY | 2024-07-24 09:42 | XMS_ITS | Encounter Summary ---
Author Organization [facility] Address [address] [place] [address] Care Team Providers Care Diesel Service Technician Name Role Phone Roxanna Acosta MD Primary Care Provider Encounter Details Date Type Department Care Team (Late Contact Info) Description 08/07/2023 External Device Data STL ABSTRACTION Provider, Abstract [...] Upcoming Encounters Date Type Department Care Team ([facility] Contact Info) Description 08/23/2024 11:15 AM DEFENSIVE SECONDARY COACH Office Visit [facility] Oncology and Hematology - [place] [address] [facility] [address] [place] [address] Michele Smith MD [address] [facility] [address] [place] [address] documented as of this encounter Visit Diagnoses Not on filedocumented in this encounter Care Teams Diesel Service Technician Relationship Specialty Start Date End Date Roxanna Acosta MD PCP - General Family Practice 02/19/12 documented as of this encounter
--- OUTSIDE RECORDS SUMMARY | 2024-07-24 09:42 | XMS_ITS | Encounter Summary ---
Author Organization [facility] Address [address] [place] [address] Care Team Providers Care Hands Hanger Name Role Phone Roxanna Acosta MD Primary Care Provider Reason for Visit * Outpatient Services (Routine) - Closed Specialty Diagnoses / Procedures Referred By Contac t Referred To Contact Oncology Diagnoses Iron deficiency anemia, unspecified Procedures INFUSION THERAPY [place] IRON SUCROSE INJECTION Venofer Enrique Mckinney MD [address] [address] [facility] 2nd Floor [address] [place] [address] Referral ID Status Reason Start Date Expiration Date Visits Re quested Visits Authorized [id number] Closed 06/14/2023 07/28/2023 3 3 Encounter Details Date Type Department Care Team (Latest Contact Info) Description 06/25/2023 12:57 PM ROOF MECHANIC - 06/25/2023 11:59 PM ROOF MECHANIC Hospital Encounter [facility] 2nd Fl [address] [place] [address] Enrique Mckinney MD [address] [address] Discharge Disposition: Home or Self Care Social [...] Sign Reading Time Taken Comments Blood Pressure 101/60 06/25/2023 1:02 PM ROOF MECHANIC Pulse 68 06/25/2023 1:02 PM ROOF MECHANIC Temperature 36.6 ??C (97.8 ??F) 06/25/2023 1:02 PM CS T Respiratory Rate 16 06/25/2023 1:02 PM ROOF MECHANIC Oxygen Saturation - - Inhaled Oxygen Concentration - - Weight - - Height - - Body Mass Index - - documented in this encounter Medications at Time of Discharge Medication Sig Dispensed Refills Start Date End Date amphetamine-dextroamphe tamine (ADDERALL XR) 20 mg Extended Release 24 hour capsule Take 20 mg by mouth. 10/06/2018 ibuprofen (MOTRIN) 600 mg tablet Take 1 Tablet (600 mg) by mouth every 6 hours as needed for Pain, Mild. 20 Tablet 09/23/2017 tranexamic acid (LYSTEDA) 650 mg Tablet tablet Take 2 Tablets (1,300 mg) by mouth 3 times daily. 30 Tablet 3 06/12/2023 12/06/2023 documented as of this encounter Progress Notes * Ramya Montgomery, ROMEO - 06/25/2023 1:00 PM CST Rosalba Jimenez admitted to [facility] for Venofer. Tolerated infusion without difficulty and monitored for 30 minutes post infusion. Denies any hypersensitivity reactions. Prior to administration, reviewed with patient/family potential side effects and the method of administration. Instruct ed patient/family to notify physician or go to ED if there are any changes in condition, verbalizedunderstanding. Discharged home. MECHANIC documented in this encounter Plan of Treatment Upcoming Encounters Date Type Department Care Team (Late st Contact Info) Description 08/23/2024 11:15 AM ROOF MECHANIC Office Visit [facility] Oncology and Hematology - [place] [address] [facility] [address] [place] [address] Michele Smith MD [address] [facility] [address] [place] [address] documented as of this encounter Visit Diagnoses Not on filedocumented in this encounter Administered Medications Inactive Administered Medications - up to 3 most recent administrations Medication Order MAR Action Action Date Dose Rate Site iron sucrose (VENOFER) 300 mg in sodium chloride 0.9% 250 mL IVPB 300 mg, IV, ONE TIME ONLY, 1 dose, On Fri06/25/23 at 1300, Routine New Bag 06/25/2023 1:19 PM ROOF MECHANIC 300 mg 200 mL/hr sodium chloride 0.9% infusion IV, at 30 mL/hr, CONTINUOUS, Starting on Fri06/25/23 at 1300, Until Gilda 06/26/23 at 0230, Routine New Bag 06/25/2023 1:08 PM ROOF MECHANIC 30 mL/hr documented in this encounter Care Teams Hands Hanger Relationship Specialty Start Date End Date Roxanna Acosta MD PCP - General Family Practice 02/19/12 documented as of this encounter
--- OUTSIDE RECORDS SUMMARY | 2024-07-24 09:42 | XMS_ITS | Encounter Summary ---
Author Organization [facility] Address [address] [place] [address] Care Team Providers Care Automation And Controls Instructor Name Role Phone Roxanna Acosta MD Primary Care Provider Reason for Referral * Radiology Services (Routine) - Closed Specialty Diagnoses / Procedures Referred By Sana t Referred To Contact Obstetrics and Gynecology Diagnoses Abnormal uterine bleeding (AUB) Procedures US PELVIC TRANSVAGINAL US PELVIS + TRANSVAG NON OB CHG US PELVIC NONOBSTETRIC REAL-TIME IMAGE COMPLETE CHG US TRANSVAGINAL Enrique Miles MD [address] [place] [address] [facility] [employer] [place] [id number] [place] [address] Referral ID Status Reason Start Date Expiration Date Visits Re quested Visits Authorized [id number] Closed 06/12/2023 07/12/2024 1 1 ARATION SUPERVISOR FREEZING Reason for Visit * Reason Comments Other bleeding a couple mo nths and go over USBack cramps Encounter Details Date Type Department Care Team (Late st Contact Info) Description 06/12/2023 10:30 AM PREPARATION SUPERVISOR FREEZING Office Visit [facility] WATER SERVER - Medical [place] [address] [place] [address] [address] [address] Enrique Miles MD [address] [facility] [address] [place] [phone] Abnormal uterine bleeding (AUB) (Primary Dx) Social History Tobacco Use Types [...] Sign Reading Time Taken Comments Blood Pressure 108/73 06/12/2023 10:19 AM PREPARATION SUPERVISOR FREEZING Pulse - - Temperature - - Respiratory Rate - - Oxygen Saturation - - Inhaled Oxygen Concentration - - Weight 62.1 kg (137 lb) 06/12/2023 10:19 AM PREPARATION SUPERVISOR FREEZING Height 157.5 cm (5' 2 ) 06/12/2023 10:19 AM PREPARATION SUPERVISOR FREEZING Body Mass Index 25.06 06/12/2023 10:19 AM PREPARATION SUPERVISOR FREEZING documented in this encounter Progress Notes * Enrique Miles MD - 06/12/2023 11:30 AM CST Chief Complaint: Chief Complaint Patient presents with Other bleeding a couple months and go over US Back cramps HPI: Ashok Nails is a 43 y.o. year old female presenting with the above complaint. This is a new problem. Symptom has been present for 3 month(s). Menstrual bleeding is regular and HEAVY. Non menstrual bleeding is dysfunctional uterine bleeding. Bleeding problem has worsened. Past therapies have included nothing. Current Outpatient Medications: tranexamic acid (LYSTEDA) 650 mg Tablet tablet, Take 2 Tablets (1,300 mg) by mouth 3 times daily., Disp: 30 Tablet, Rfl: 3 amphetamine-dextroamphetamine (ADDERALL XR) 20 mg Extended Release 24 hour capsule, Take 20 mg by mouth., Disp: , Rfl: ibuprofen (MOTRIN) 600 mg tablet, Take 1 Tablet (600 mg) by mouth every 6 hours as needed for Pain,Mild., Disp: 20 Tablet, Rfl: 0 [DISCONTINUED] ibuprofen (MOTRIN) 600 mg tablet, Take 1 Tablet (600 mg) by mouth every 6 hours as needed for Pain, Mild., Disp: 30 Tablet, Rfl: 0 Review of Systems: Constitutional: fatigue Respiratory: negative Cardiac: negative GI: negative for reflux, abdominal pain, change in bowel habits, or black or bloody stools : as above Social: Social History Tobacco Use Smoking Status Never Smokeless Tobacco Never , Social History Substance and Sexual Activity Alcohol Use Yes Comment: social , Social History Substance and Sexual Activity Drug Use No Physical Exam: Blood pressure 108/73, height 5' 2 (1.575 m), weight 62.1 kg (137 lb), last menstrual period 03/24/2023, not currently . General appearance: alert, fatigued, mild distress, pale Head: Normocephalic, without obvious abnormality Eyes: negative Abdomen: soft, non-tender; bowel sounds normal; no masses, no organomegaly Pelvic: adnexae not palpable, cervix normal in appearance, external genitalia normal, no adnexal masses or tenderness, no bladder tenderness, no cervical motion tenderness, uterus normal size, shape,and consistency, vagina normal without discharge Skin: Skin color, texture, turgor normal. No rashes or lesions Neurologic: Grossly normal A/P: ICD-10-CM ICD-9-CM 1. Abnormal uterine bleeding (AUB) N93.9 626.9 CBC WITH DIFFERENTIAL US PELVIS + TRANSVAG NON OB TSH T4 FREE BIOPSY ENDOMETRIAL PATHOLOGY CBC WITH DIFFERENTIAL TSH T4 FREE : Await labs, emb. Lysteda for now. Following orders placed: Orders Placed This Encounter BIOPSY ENDOMETRIAL US PELVIS + TRANSVAG NON OB CBC WITH DIFFERENTIAL TSH T4 FREE tranexamic acid (LYSTEDA) 650 mg Tablet tablet Old records reviewed:yes Lab tests ordered/reviewed: yes Radiology ordered/reviewed: yes Review of Specimen: no All questions answered. Patient agrees with the plan. Follow up instructions given ARATION SUPERVISOR FREEZING documented in this encounter Procedure Notes * Enrique Miles MD - 06/12/2023 10:58 AM CSTAssociated Order(s): BIOPSY ENDOMETRIAL Procedure(s): OK ENDOMETRIAL BX W/WO ENDOCERVIX BX W/O DILAT SPX Pre-Procedure Diagnose(s): Abnormal uterine bleeding (AUB) ENDOMETRIAL BIOPSY PROGRESS NOTE: Consent obtained from patient. Cervix swabbed with Betadine. Tenaculum applied. OS finder utilized. Pipelle inserted a total of 3 passes. Endometrial biopsy performed and the uterus sounded to 8 cm. A heavy amount of tissue obtained using the pipelle curette. Tenaculum removed. Siteshemostatic with pressure. Patient tolerated the procedure well with mild cramping. IMAGING: PELVIC ULTRASOUND LABS: POC UPT PATIENT INSTRUCTIONS: Post procedure instructions given. FOLLOW-UP: Will call patient with results. ARATION SUPERVISOR FREEZING documented in this encounter Plan of Treatment Upcoming Encounters Date Type Department Care Team (Late st Contact Info) Description 08/23/2024 11:15 AM PREPARATION SUPERVISOR FREEZING Office Visit [facility] Oncology and Hematology [facility] [address] [facility] [address] [place] [address] Michele Smith MD [address] [facility] [address] [place] [address] documented as of this encounter Procedures Procedure Name Priority Date/Time Associated Diagnosis Comments PATHOLOGY Routine 06/12/2023 3:14 PM PREPARATION SUPERVISOR FREEZING Abnormal uterine bleeding (AUB) CBC WITH DIFFERENTIAL Routine 06/12/2023 11:18 AM PREPARATION SUPERVISOR FREEZING Abnormal uterine bleeding (AUB) TSH Routine 06/12/2023 11:18 AM PREPARATION SUPERVISOR FREEZING Abnormal uterine bleeding (AUB) T4 FREE Routine 06/12/2023 11:18 AM PREPARATION SUPERVISOR FREEZING Abnormal uterine bleeding (AUB) OK ENDOMETRIAL BX W/WO ENDOCERVIX BX W/O DILAT SPX Routine 06/12/2023 10:58 AM PREPARATION SUPERVISOR FREEZING Abnormal uterine bleeding (AUB) documented in this encounter Results * US PELVIC TRANSVAGINAL (07/02/2023 9:53 AM PREPARATION SUPERVISOR FREEZING) Anatomical Region Laterality Modality Pelvis Ultrasound 07/02/2023 9:31 AM PREPARATION SUPERVISOR FREEZING [facility] 07/02/2023 5:37 PM [facility] PELVIC ULTRASOUND ----- Pat. Name: ASHOK NAILS Study Date: 07/02/2023 9:31am Pat. NO: [id number] Referring ??MD: ENRIQUE MILES Site: [facility] Key Punch Teacher: Мария Gallardo RDMS : 1980 Age: 43 ----- INDICATION ----- Dysfunctional Uterine Bleeding (DUB) CODING ----- Diagnoses ? N93.8: Other specified abnormal uterine and vaginal bleeding Procedures ?72729: Ultrasound non OB transvaginal METHOD ----- RESEARCH ENGINEER MARINE EQUIPMENT Transvaginal US Examination UTERUS ----- Long 87 mm x ap 57 mm x tr 59 mm. Vol 155.5 cm?? Position: midline , anteverted Malformations: none Myometrium: unremarkable, contour is smooth Endometrium: thickened. Endometrial thickness, total 23.7 mm Cervix details: contains cystic lesions identified suggesting superficial Nabothian cysts RIGHT OVARY ----- Enlarged ( >= 10 ml). Outline: Smooth contours. Size 36 mm x 23 mm x 26 mm. Vol 11.0 cm?? Cyst(s) ? Size 22 mm x 18 mm x 19 mm. Mean 19.4 mm. Vol 3.787 cm??. complex cyst with peripheral vascularity LEFT OVARY ----- is appropriately sized. Outline: Smooth contours. Size 33 mm x 20 mm x 18 mm. Vol 6.2 cm?? CUL DE SAC ----- Imaging of the cul-de-sac is unremarkable. No free fluid is seen IMPRESSION ----- Uterus is midline , anteverted and measures 87 x 57 x 59 mm Myometrium appears unremarkable, contour is smooth The endometrium measures 23.7 mm Cervix contains cystic lesions identified suggesting superficial Nabothian cysts Right Ovary Enlarged ( >= 10 ml). It contains a 19.4 mm complex cyst. Left Ovary is appropriately sized. Posterior cul de sac: No free fluid is seen Procedure Note Enrique Miles MD - 07/02/2023 [facility] PELVIC ULTRASOUND ----- Pat. Name:Debbie NAILS Date:07/02/2023 9:31am Pat. NO: [id number] MD:ENRIQUE MILES [facility]Мария Gallardo RDMS :1980Age:43 ----- INDICATION ----- Dysfunctional Uterine Bleeding (DUB) CODING ----- Diagnoses N93.8: Other specified abnormal uterine andvaginal bleeding Procedures 68688: Ultrasound non OB transvaginal METHOD ----- RESEARCH ENGINEER MARINE EQUIPMENT Transvaginal US Examination UTERUS ----- Long 87 mm x ap 57 mm x tr 59 mm. Vol 155.5 cm?? Position: midline , anteverted Malformations: none Myometrium: unremarkable, contour is smooth Endometrium: thickened. Endometrial thickness, total 23.7 mm Cervix details: contains cystic lesions identified suggesting superficial Nabothian cysts RIGHT OVARY ----- Enlarged ( >= 10 ml). Outline: Smooth contours. Size 36 mm x 23 mm x 26mm. Vol 11.0 cm?? Cyst(s) Size 22 mm x 18 mm x 19 mm. Mean 19.4 mm. Vol3.787 cm??. complex cyst with peripheral vascularity LEFT OVARY ----- is appropriately sized. Outline: Smooth contours. Size 33 mm x 20 mm x 18 mm. Vol 6.2 cm?? CUL DE SAC ----- Imaging of the cul-de-sac is unremarkable. No free fluid is seen IMPRESSION ----- Uterus is midline , anteverted and measures 87 x 57 x 59 mm Myometrium appears unremarkable, contour is smooth The endometrium measures 23.7 mm Cervix contains cystic lesions identified suggesting superficial Nabothiancysts Right Ovary Enlarged ( >= 10 ml). It contains a 19.4 mm complex cyst. Left Ovary is appropriately sized. Posterior cul de sac: No free fluid is seen Enrique Miles MD US ORDERABLES * PATHOLOGY (06/12/2023 3:14 PM PREPARATION SUPERVISOR FREEZING) CASE REPORT Surgical Pathology Report ? Case: [id number] ? Authorizing Provider: ??Enrique Miles MD ? Collected: ? 06/12/2023 03:14 PM ? Ordering Location: ? [facility] WATER SERVER ??Received: ?06/16/2023 01:33 PM ? - [facility] [id number] ? Pathologist: ? Christelle Moscoso MD ? Specimen: ?Endometrium ? 3 2:33 PM [facility] FINAL DIAGNOSIS Endometrium, biopsy: -Proliferative pattern with stromal breakdown. -No evidence of hyperplasia or malignancy. 3 2:33 PM [facility] S DESCRIPTION Received in one container labeled Ashok Nails and endometrium is a 3.0 x 3.0 x 0.3 cm aggregate of red-henderson tissue and blood clot which is filtered into a mesh bag and entirely submitted in cassette A1. Per the specimen problem report: Specimen container was originally received with no source. The source was confirmed to be endometrium . [facility] 3 2:33 PM [facility] MICROSCOPIC DESCRIPTION The slides are labeled [id number] and Ashok Nails. Sections of endometrial biopsy reveal proliferative pattern endometrium with stromal breakdown. There is no evidence of hyperplasia or malignancy. 3 2:33 PM [facility] OPERATIVE PROCEDURE EMB 3 2:33 PM [facility] CLINICAL INFORMATION Abnormal Uterine bleeding 3 2:33 PM [facility] COMMENT Special stain, immunohistochemical, and/or in situ hybridization results are interpreted with controls that demonstrate appropriate staining reactions. Note on use of immunohistochemistry reagents and in situ hybridization probes: These tests were developed and their performance characteristics determined by [facility], Department of Laboratory Medicine. It has not been cleared or approved by the U.S. Food and Drug Administration. The FDA has determined that such clearance or approval is not necessary. The test is used for clinical purposes. It should not be regarded as investigational or for research. This laboratory is certified to perform high complexity testing. Frozen section/operating room consultation, gross examination and dissection, and case sign out may have been performed in part or completely in the following laboratories: [facility], CLIA #[id number] [address] [place] [address] [facility], CLIA #[id number] [address] [place] [address] [facility], CLIA #[id number] [address] [place] [address] This report was created with the [employer] voice-activated dictation system. Inherent to this system is the possibility of syntax, grammar, punctuation and other errors that could impact the interpretation of the report. If there are interpretative questions about aspects of this report, please contact the performing pathologist. 3 2:33 PM [facility] Tissue ENDOMETRIAL STRUCTURE / Unknown Collection / Unknown 06/12/2023 3:14 PM PREPARATION SUPERVISOR FREEZING 06/16/2023 1:33 PM PREPARATION SUPERVISOR FREEZING Enrique Miles MD PATHOLOGY/CYTOLOGY O RDERABLES Performing Organization Address [facility] Co de Phone Number [facility] CLIA# [id number] [address] [place] [id number] * T4 FREE (06/12/2023 11:18 AM PREPARATION SUPERVISOR FREEZING) T4 FREE 1.0 0.8 - 1.8 ng/dL [facility] [employer] Comment: Test Performed at: [employer] ??[id number] Parth Herrera MD Blood 06/12/2023 11:1 8 AM PREPARATION SUPERVISOR FREEZING 06/12/2023 11:19 AM PREPARATION SUPERVISOR FREEZING Enrique Miles MD CHEMISTRY ORDERABLES Performing Organization Address [facility] de Phone Number [facility] [phone] [facility] Hospital[facility] [address] * TSH (06/12/2023 11:18 AM PREPARATION SUPERVISOR FREEZING) TSH 2.20 mIU/L [facility] Comment: ?Reference Range ?> or = 20 Years ??0.40-4.50 ? Ranges ?First trimester ?0.26-2.66 ?Second trimester ?? 0.55-2.73 ?Third trimester ?0.43-2.91 Test Performed at: [facility] [address] [place] ??[id number] Parth Herrera Blood 06/12/2023 11:1 8 AM PREPARATION SUPERVISOR FREEZING 06/12/2023 11:19 AM PREPARATION SUPERVISOR FREEZING Enrique Miles MD CHEMISTRY ORDERABLES [facility] [phone] [facility] [address] [phone] * (ABNORMAL) CBC WITH DIFFERENTIAL (06/12/2023 11:18 AM PREPARATION SUPERVISOR FREEZING) WBC 4.4 3.8 - 10.8 Thousand/ uL [facility] RBC 3.93 3.80 - 5.10 Million/u L [facility] HEMOGLOBIN 6.2(L) 11.7 - 15.5 g/dL [facility] Comment: Verified by repeat analysis. HEMATOCRIT 24.2(L) 35.0 - 45.0 % [facility] MCV 61.6(L) 80.0 - 100.0 fL [facility] MCH 15.8(L) 27.0 - 33.0 pg [facility] MCHC 25.6(L) 32.0 - 36.0 g/dL [facility] RDW 18.8(H) 11.0 - 15.0 % [facility] PLATELETS 316 140 - 400 Thousand/ uL [facility] MPV 7.5 - 12.5 fL [facility] Comment: Due to platelet or RBC variability in size or shape the result cannot be reported accurately. NEUTROPHIL ABSOLUTE 3,080 1,500 - 7,800 cells/uL [facility] LYMPHOCYTE ABSOLUTE 1,012 850 - 3,900 cells/uL [facility] MONOCYTE ABSOLUTE 264 200 - 950 cells/uL [facility] EOSINOPHIL ABSOLUTE 44 15 - 500 cells/uL [facility] BASOPHILS ABSOLUTE 0 0 - 200 cells/uL [facility] NEUTROPHIL 70 % [facility] LYMPHOCYTES 23 % [facility] MONOCYTE 6 % [facility] EOSINOPHILS 1 % [facility] BASOPHILS 0 % [facility] COMMENT HEMATOLOGY [facility] Comment: The smear has been manually reviewed and the manual differential has been reported. Microcytosis 2 + Polychromasia 1 + Schistocytes 1 + Review of the peripheral smear reveals adequate numbers of platelets. Test Performed at: [place] [address] [place] ??[id number] Parth Herrera Blood 06/12/2023 11:1 8 AM PREPARATION SUPERVISOR FREEZING 06/12/2023 11:19 AM PREPARATION SUPERVISOR FREEZING Enrique Miles MD HEMATOLOGY ORDERABLE S [facility] [phone] [place] [address] [place] [id number] * [place] ENDOMETRIAL BX W/WO ENDOCERVIX BX W/O DILAT SPX (06/12/2023 10:58 AM PREPARATION SUPERVISOR FREEZING) Narrative [facility] - 06/12/2023 10:58 AM PREPARATION SUPERVISOR FREEZING Enrique Miles MD ? 06/12/2023 11:32 AM ENDOMETRIAL BIOPSY PROGRESS NOTE: ??Consent obtained from patient. ??Cervix swabbed with Betadine. ??Tenaculum applied. ??OS finder utilized. ??Pipelle inserted a total of 3 passes. ??Endometrial biopsy performed and the uterus sounded to 8 cm. ??A heavy amount of ??tissue obtained using the pipelle curette. ??Tenaculum removed. ??Sites hemostatic with pressure. ??Patient tolerated the procedure well with mild cramping. ?? IMAGING: ??PELVIC ULTRASOUND LABS: ??POC UPT PATIENT INSTRUCTIONS: ??Post procedure instructions given. ?? FOLLOW-UP: ?? Will call patient with results. ?? Enrique Miles MD PROCEDURE/MINOR SURG ICAL ORDERABLES [facility] CLIA# [id number] [address] [place] [address] documented in this encounter Visit Diagnoses Diagnosis Abnormal uterine bleeding (AUB)- Primary Abnormal uterine bleeding (AUB) documented in this encounter Care Teams Automation And Controls Instructor Relationship Specialty Start Date End Date Roxanna Acosta MD PCP - General Family Practice 02/19/12 documented as of this encounter
--- OUTSIDE RECORDS SUMMARY | 2024-07-24 09:42 | XMS_ITS | Encounter Summary ---
Author Organization [facility] Address [address] [place] [address] Care Team Providers Care Museum Host/Hostess Name Role Phone Roxanna Acosta MD Primary Care Provider [phone] Reason for Visit * Reason Onset Date Comments Results 10/05/2019 Encounter Details Date Type Department Care Team (Late Contact Info) Description 10/05/2019 Telephone [facility] HISTOLOGY SUPERVISOR - Medical [address] [address] Enrique Mckinney MD [address] [place] [phone] Results Social History Tobacco Use Types Packs/Day [...] encounter Miscellaneous Notes * Telephone Encounter - Enrique Mckinney MD - 10/05/2019 1:28 PM CST Called to notify pt of normal pap. Pt appreciative. INSTRUCTOR documented in this encounter Plan of Treatment Upcoming Encounters Date Type Department Care Team (Late st Contact Info) Description 08/23/2024 11:15 AM ESOL INSTRUCTOR Office Visit [facility] Oncology and Hematology - [place] [address] [facility] [address] [place] [address] Michele Smith MD [address] [facility] [address] [place] [address] documented as of this encounter Visit Diagnoses Not on filedocumented in this encounter Care Teams Museum Host/Hostess Relationship Specialty Start Date End Date Roxanna Acosta MD PCP - General Family Practice 02/19/12 documented as of this encounter
--- OUTSIDE RECORDS SUMMARY | 2024-07-24 09:42 | XMS_ITS | Encounter Summary ---
Author Organization [facility] Address [address] [place] [address] Care Team Providers Care Cash Applications Representative Name Role Phone Roxanna Acosta MD Primary Care Provider [phone] Reason for Visit * Reason Onset Date Comments Results 06/16/2023 Encounter Details Date Type Department Care Team (Late st Contact Info) Description 06/16/2023 Telephone [facility] Women's Health Clinical Support [address] [place] [address] Ran Rm, RN Results Social History Tobacco Use Types Packs/Day [...] encounter Miscellaneous Notes * Telephone Encounter - Ran Rm RN - 06/16/2023 1:10 PM CST Called pt to follow up regarding results and recommendations for blood transfusion. Pt c/o SOB and dizziness w/ activity. Advised pt per provider recommendation to go to ED for blood transfusion 2 Units. Pt voiced understanding and will have spouse drive her to ED. J2EE ANDROID DEVELOPER documented in this encounter Plan of Treatment Upcoming Encounters Date Type Department Care Team (Late st Contact Info) Description 08/23/2024 11:15 AM J2EE ANDROID DEVELOPER Office Visit [facility] Oncology and Hematology - [place] [address] [facility] [address] [place] [address] [place] [address] Michele Smith MD [address] [facility] [address] [place] [address] documented as of this encounter Visit Diagnoses Not on filedocumented in this encounter Care Teams Cash Applications Representative Relationship Specialty Start Date End Date Roxanna Acosta MD PCP - General Family Practice 02/19/12 documented as of this encounter
--- OUTSIDE RECORDS SUMMARY | 2024-07-24 09:42 | XMS_ITS | Encounter Summary ---
Author Organization [facility] Address [address] [place] [address] Care Team Providers Care Watcher Automat [employer] Name Role Phone Roxanna Acosta MD Primary Care Provider Reason for Visit * Reason Onset Date Comments Results 03/27/2018 Encounter Details Date Type Department Care Team (Late st Contact Info) Description 03/27/2018 Telephone [facility] CERTIFIED [place] - Medical [address] [address] Enrique Mckinney MD [address] [place] [address] Results Social History Tobacco Use Types [...] encounter Miscellaneous Notes * Telephone Encounter - Halle Chung - 03/27/2018 10:58 AM CDT Patient called office back. She was notified of results. Next appt 04/08/18. * Telephone Encounter - Halle Chung - 03/27/2018 10:40 AM CDT I have attempted without success to contact this patient by phone to discuss lab results. Message left for patient to return my call. * Telephone Encounter - Halle Chung - 03/27/2018 10:38 AM CDT ----- Message from Enrique Mckinney MD sent at 03/26/2018 5:34 PM CDT ----- LEEP showed HGSIL. No cancer! Margins NEGATIVE this time!!! documented in this encounter Plan of Treatment Upcoming Encounters Date Type Department Care Team (Late st Contact Info) Description 08/23/2024 11:15 AM CLASSIFIER OPERATOR Office Visit [facility] Oncology and Hematology [facility] [address] [place] [address] [facility] [address] [place] [phone] Michele Smith MD [address] [facility] [address] [place] [address] documented as of this encounter Visit Diagnoses Not on filedocumented in this encounter Care Teams Watcher Automat [employer] Relationship Specialty Start Date End Date Roxanna Acosta MD PCP - General Family Practice 02/19/12 documented as of this encounter
--- OUTSIDE RECORDS SUMMARY | 2024-07-24 09:42 | XMS_ITS | Encounter Summary ---
Author Organization [facility] Address [address] [place] [address] Care Team Providers Care Knitter Helper Name Role Phone Roxanna Acosta MD Primary Care Provider Reason for Visit * Auth/Cert (Routine) Specialty Diagnoses / Procedures Referred By Contac t Referred To Contact Procedures PA CONIZATION CERVIX,LOOP ELECTRD Referral ID Status Reason Start Date Expiration Date Visits Re quested Visits Authorized [id number] 02/12/2018 03/15/2019 1 1 Encounter Details Date Type Department Care Team (Late st Contact Info) Description 03/24/2018 8:17 AM CDT Anesthesia Event [facility] Operating Room [address] [place] [address] Jennifer Lincoln MD [address] [place] [address] Anesthesia Record Procedure Summary Procedure Name Responsible Anesthesiologist Anesthesia Start Time Anesthesia Stop Time LOCAL CERVICAL CONE LEEP (Cervix) Jennifer Lincoln MD 03/24/18 0817 03/24/18 0846 Events Date Time Event Comment 03/24/2018 0758 0807 AN Equip Check Anesthesia eq uipment and materials checked in accordance with local policy. 0817 An Start 0817 An Start Data 0819 Pre-Induction Immediate pre- induction anesthetic assessment performed. Vital signs as noted on graphic. 0819 Quick Note Auxiliary O2 fl owmeter at 4 L/min entire case 0820 An Induction 0823 Anesthesia Ready 0828 an param now Injection of 0. 25% sensorcaine with epinephrine 0841 an stop data 0845 Hand-off to Receiving Clinic gabriella Post-Anesthetic transfer of care report elements to appropriate post-anesthesia recovery environment completed in accordance with procedure. 0846 An Stop Meds Name Total fentaNYL (SUBLIMAZE) PF 50??mcg/mL injec tion 50 mcg lidocaine (XYLOCAINE) 2% syringe 40 mg propofol (DIPRIVAN) 10??mg/mL injection 220 mg propofol (DIPRIVAN) 10??mg/mL injection 75.72 mg ondansetron (ZOFRAN ODT) tablet 4 mg dexamethasone (DECADRON) 4 mg/mL injecti on 4 mg ketorolac (TORADOL) 30??mg/mL injection 30 mg lactated Ringers solution 400 mL * Agents Name Sevoflurane % Sevoflurane O2 N2O Inspired N2O O2 * Blood No blood administrations on file. Lines, Drains, and Airways Type Details Placement Removal Peripheral IV Pre-Hospital Start: No; Orientation: Right; Location: Hand; Device: Angiocath; Gauge: 20 gauge; Needle Length: 1 in length; Insertion Attempts: 1; Patient Tolerance: tolerated well 03/24/18 0749 by Tracey Kincaid RN 03/24/18 0952 by Celina Washburn, RN Supraglottic Airway Type: nasal cannula; Confirmation: satisfactory chest rise, SAO2, end tidal CO2 03/24/18 0819 by Haily Lawson AA-C 03/24/18 221 by PROVIDER, DISCHARGE PATIENT Adult Incision 03/24/18; 0835; surg ical incision; vagina; 03/24/18; 2219 03/24/18 0835 by Jennifer Lopez, ROMEO 03/24/182218 by PROVIDER, DISCHARGE PATIENT documented in this encounter Social History Tobacco [...] on file documented as of this encounter OR Notes * Anesthesia Postprocedure Evaluation - Jennifer Lincoln MD - 03/24/2018 9:04 AM CDT Post Anesthesia Evaluation Vitals: BP (!) 94/56 Pulse 78 Temp 36.3 ??C (Temporal) Resp 18 Ht 5' 2 (1.575 m) Wt 63 kg (139 lb) LMP 02/24/2018 SpO2 99% BMI 25.42 kg/m?? Pain Rating: Phase II Postanesthesia Evaluation Including [facility] Modified Jermain Score Patient seen and evaluated: [facility] Modified Jermain Score: Score: 20 (03/24/18901) COMMENTS: No apparent Anesthesia related complications RESPIRATORY FUNCTION: Respiration: able to breath and cough freely (03/24/18901) [2=able to breathe and cough freely, 1=dyspnea, limited breathing or tachypnea, 0=apnea or mechanicventilator] O2 Saturation: able to maintain O2 saturation greater than 92% on room air (03/24/18901) [2=able to maintain O2 saturation greater than 92% on room air, 1=needs O2 inhalation to maintain O2 saturation greater than 90%, 0=O2 saturation less than 90% even with O2 supplement] Resp: 18 (03/24/18854)SpO2: 99 % (03/24/18854) CARDIOVASCULAR FUNCTION: Heart Rate: 63 bpm (03/24/18854) BP: (!) 94/56 (03/24/18854) Circulation: BP within 20% of preanesthetic level (03/24/18901) [2=BP within 20% of preanesthetic level, 1=BP within 20-49% of preanesthetic level, 0=BP within 50%of preanesthetic level] MENTAL STATUS, NEURO, ACTIVITY: PATIENT PARTICIPATION IN EVALUATIONyes Consciousness: fully awake (03/24/18901) [2=fully awake, 1=arousable on calling, 0=not responding] Activity: able to move 4 extremities voluntarily or on command (03/24/18901) [2=able to move 4 extremities voluntarily or on command, 1=able to move 2 extremities voluntarily or on command, 0=unable to move extremities voluntarily or on command] Ambulation: able to stand up and walk straight, on ordered bedrest, or performing at patient's prior level of function (08/21/18 0902) [2=able to stand up and walk straight, on ordered bedrest, or performing at patient's prior level of function, 1=vertigo when erect, 0=dizziness when supine] TEMPERATURE: Temp: 36.3 ??C (03/24/18 0845) PAIN: Presence of Pain: complains of pain/discomfort (03/24/18 0737) Pain: pain free (03/24/18901) [2=pain free, 1=pain handled by oral medication, 0=pain requiring parenteral medication] NAUSEA AND VOMITING: no nausea and no vomiting Fasting/Feeding: able to drink fluids, ice chips or NPO (03/24/18901) [2=able to drink fluids, ice chips or NPO, 1=nauseated, 0=nausea and vomiting] POSTOPERATIVE HYDRATION: well hydrated Intake/Output Summary (Last 24 hours) at 03/24/18903 Last data filed at 03/24/18 08 Gross per 24 hour Intake 400 ml Output 0 ml Net 400 ml Urine Output: has voided, adequate urine output per device, or not applicable (03/24/18901) [2=has voided, adequate urine output per device, or not applicable, 1=unable to void but comfortable, 0=unable to void and uncomfortable] WOUND: Dressing: dry and clean or not applicable (03/24/18901) [2=dry and clean or not applicable, 1=wet, marked and not increasing, 0=growing area of wetness] Jennifer Lincoln MD 03/24/2018 9:04 AM Jennifer Lincoln MD * Anesthesia Handoff - Haily Lawson AA-C - 03/24/2018 8:45 AM CDT Post-Anesthetic transfer of care report elements to appropriate post-anesthesia recovery environment completed in accordance with procedure. I completed my handoff to the receiving nurse during which we: 1. Identified the patient 2. Identified the responsible provider 3. Reviewed the pertinent medical history 4. Discussed the surgical course 5. Reviewed intra-op anesthesia management and issues during anesthesia 6. Set expectations for post-procedure period 7. Allowed opportunity for questions and acknowledgement of understanding. Vital Signs: BP: 107/61 (03/24/2018 8:45 AM) Pulse: 78 (03/24/2018 7:37 AM) Heart Rate: 94 bpm (03/24/2018 8:45 AM) Temp: 36.3 ??C (03/24/2018 8:45 AM) Resp: 15 (03/24/2018 8:45 AM) SpO2: 98 % (03/24/2018 8:45 AM) 8:46 AM YFN Robin * Anesthesia Preprocedure Evaluation - Jennifer Lincoln MD - 03/24/2018 7:52 AM CDT Relevant Problems No relevant active problems Anesthesia Evaluation Patient summary reviewed and Nursing notes reviewed Airway Mallampati: II TM distance: >3 FB Neck ROM: full Dental - normal exam Pulmonary - negative ROS and normal exam (-) asthma, recent URI Cardiovascular - negative ROS and normal exam Exercise tolerance: good Neuro/Psych - negative ROS GI/Hepatic/Renal - negative ROS (-) GERD Endo/Other - negative ROS Abdominal - normal exam Anesthesia History No history of anesthetic complications. Anesthesia Plan ASA 1 MAC N/A induction NPO status > 8 hours Anesthetic plan and risks discussed with Patient and Spouse. Use of blood products: consented to blood products. Plan discussed with Nurse Blade Changer. Post-op Pain Control Plan to use Block and Per surgeon for post-op pain control. Plan for postoperative opioid use Smoking Compliance Patient did not smoke on day of surgery documented in this encounter Miscellaneous Notes * Addendum Note - Jennifer Lincoln MD - 03/24/2018 9:33 AM CDT Addendum created 03/24/18932 by Jennifer Lincoln MD Order list changed documented in this encounter Plan of Treatment Upcoming Encounters Date Type Department Care Team (Late st Contact Info) Description 08/23/2024 11:15 AM WALLBOARD WORKER Office Visit [facility] Oncology and Hematology - [address] [place] [address] Michele Smith MD [address] [place] [address] documented as of this encounter Visit Diagnoses Not on filedocumented in this encounter Administered Medications Inactive Administered Medications - up to 3 most recent administrations Medication Order MAR Action Action Date Dose Rate Site dexamethasone (DECADRON) injection INTRA-PROCEDURE PRN, Starting on Fri03/24/18 at 0826, Until Fri03/24/18 at 0847, Routine, Anesthesia Intra-op Given 03/24/2018 8:26 AM CDT 4 mg fentaNYL PF (SUBLIMAZE) 50 mcg/mL injection INTRA-PROCEDURE PRN, Starting on Fri03/24/18 at 0819, Until Fri03/24/18 at 0847, Pain (See admin instructions), Routine, Anesthesia Intra-op Given 03/24/2018 8:25 AM CDT 25 mcg Given 03/24/2018 8:19 AM CDT 25 mcg ketorolac (TORADOL) injection INTRA-PROCEDURE PRN, Starting on Fri03/24/18 at 0835, Until Fri03/24/18 at 0847, Routine, Anesthesia Intra-op Given 03/24/2018 8:35 AM CDT 30 mg lidocaine (XYLOCAINE) 60 mg/3 mL (2 %) syringe INTRA-PROCEDURE PRN, Starting on Fri03/24/18 at 0820, Until Fri03/24/18 at 0847, Routine, Anesthesia Intra-op Given 03/24/2018 8:20 AM CDT 40 mg ondansetron (ZOFRAN ODT) tablet INTRA-PROCEDURE PRN, Starting on Fri03/24/18 at 0812, Until Fri03/24/18 at 0847, Nausea/Emesis, Routine, Anesthesia Intra-op Given 03/24/2018 8:12 AM CDT 4 mg propofol (DIPRIVAN) injection INTRA-PROCEDURE CONTINUOUS PRN, Starting on Fri03/24/18 at 0823, Until Fri03/24/18 at 0847, Anesthesia Intra-op New Bag 03/24/2018 8:23 AM CDT 100 mcg/kg/min 37.86 mL/hr propofol (DIPRIVAN) injection INTRA-PROCEDURE PRN, Starting on Fri03/24/18 at 0820, Until Fri03/24/18 at 0847, Anesthesia Intra-op Given 03/24/2018 8:29 AM CDT 30 mg Given 03/24/2018 8:28 AM CDT 40 mg Given 03/24/2018 8:22 AM CDT 30 mg documented in this encounter Care Teams Knitter Helper Relationship Specialty Start Date End Date Roxanna Acosta MD PCP - General Family Practice 02/19/12 documented as of this encounter
--- OUTSIDE RECORDS SUMMARY | 2024-07-24 09:42 | XMS_ITS | Encounter Summary ---
Author Organization [facility] Address [address] [place] [address] Care Team Providers Care Sloop Captain Name Role Phone Roxanna Acosta MD Primary Care Provider Reason for Visit * Reason Onset Date Comments Surgery 02/09/2018 Encounter Details Date Type Department Care Team (Late st Contact Info) Description 02/09/2018 Telephone [facility] CITY LIBRARY DIRECTOR - Medical [address] [address] Enrique Mckinney MD [address] [place] [address] Surgery Social History Tobacco Use Types Packs/Day Years [...] encounter Miscellaneous Notes * Telephone Encounter - Sherice Kee - 02/12/2018 2:13 PM CDT Tried reaching pt, lmor confirming procedure details. Letter mailed to pt. Pt to call the office with any questions/concerns and if letter is not received. 02/12/18 210p KU * Telephone Encounter - Sherice Kee - 02/10/2018 3:23 PM CDT Sp with pt, reviewed procedure and discussed possible dates to schedule; tentatively to schedule on03/24/18; will set up the case and call her back with confirmation; questions answered; pt verbalized understanding. 02/10/18 320p KU * Telephone Encounter - Sherice Kee - 02/09/2018 8:22 AM CDT PROVIDER: MERVAT PROVIDER OFFICE LOCATION: : 1980 PROCEDURE/CODE: LEEP 37941 DX/CODE: HGSIL R87.613 PROCEDURE LOCATION: CASE #: PROCEDURE DATE/TIME: LENGTH OF CASE: OUTPT/SDA/23HR GENERAL/LOCAL MAC/IV SED INSURANCE COMPANY: [facility] ID # / GROUP #: [id number] INSURANCE PHONE #: [phone] PRECERT: JOI'Adriana -- APPROVAL # [id number] SP WITH: MATTHEW Maurice DATE/TIME: 02/12 BENEFITS: ACTIVE SP WITH: DATE/TIME: 02/12 IN EPIC: [ X] CALENDAR: [X ] DOC NOTIFIED: [ X] LETTER MAILED: [ X] SPREADSHEET: [ ] PT NOTIFIED: [X ] ORDERS FAXED: [X ] REFERRAL ADDED: [ X] BMI: 26 (65kg; 143lb) POST OP: 04/08 @ 110p OR RISKS (param all that apply): DELIA [ ] ISOLATION [ ] LATEX ALLERGY [ ] MALIGNANT HYPERTHERMIA [ ] * Telephone Encounter - Sherice Kee - 02/09/2018 8:15 AM CDT -----Message from Enrique Mckinney MD----- hgsil on pap. Hx of hgsil. Needs repeat LEEP documented in this encounter Plan of Treatment Upcoming Encounters Date Type Department Care Team (Late st Contact Info) Description 08/23/2024 11:15 AM COAL TRIMMER MACHINE OPERATOR Office Visit [facility] Oncology and Hematology - [address] [facility] [address] [place] [address] Michele Smith MD [address] [facility] [address] [place] [address] documented as of this encounter Visit Diagnoses Not on filedocumented in this encounter Care Teams Sloop Captain Relationship Specialty Start Date End Date Roxanna Acosta MD PCP - General Family Practice 02/19/12 documented as of this encounter
--- OUTSIDE RECORDS SUMMARY | 2024-07-24 09:42 | XMS_ITS | Encounter Summary ---
Author Organization [facility] Address [address] [place] [address] Care Team Providers Care Chief Fishery Division Name Role Phone Roxanna Acosta MD Primary Care Provider [phone] Reason for Visit * Reason Comments Well Woman Exam Encounter Details Date Type Department Care Team (Latest Contact Info) Description 09/29/2019 1:10 PM LIVESTOCK HANDLER Office Visit [facility] CHARGER OPERATOR HELPER - [address] [place] [address] Enrique Mckinney MD [address] [place] [address] [place] [address] Well woman exam with routine gynecological exam (Primary Dx); Breast cancer screening by mammogram Social History Tobacco Use Types Packs/Day Years [...] Sign Reading Time Taken Comments Blood Pressure 124/74 09/29/2019 1:17 PM LIVESTOCK HANDLER Pulse - - Temperature - - Respiratory Rate - - Oxygen Saturation - - Inhaled Oxygen Concentration - - Weight 60.3 kg (133 lb) 09/29/2019 1:17 PM LIVESTOCK HANDLER Height 157.5 cm (5' 2 ) 09/29/2019 1:17 PM LIVESTOCK HANDLER Body Mass Index 24.33 09/29/2019 1:17 PM LIVESTOCK HANDLER documented in this encounter Progress Notes * Enrique Mckinney MD - 09/29/2019 1:29 PM CST SUBJECTIVE: 39 y.o. female for annual routine Pap and checkup. Patient's last menstrual period was 09/25/2019. Patient Active Problem List Diagnosis Date Noted ??? Status post LEEP (loop electrosurgical excision procedure) of cervix 03/24/2018 ??? HGSIL (high grade squamous intraepithelial lesion) on Pap smear of cervix 08/29/2017 ??? S/P tonsillectomy 02/19/2012 ??? Anxiety state, unspecified 11/03/2006 Current Outpatient Medications on File Prior to Visit Medication Sig Dispense Refill ??? amphetamine-dextroamphetamine (ADDERALL XR) 20 mg Extended Release 24 hour capsule Take 20 mg by mouth. ??? ibuprofen (MOTRIN) 600 mg tablet Take 1 Tablet (600 mg) by mouth every 6 hours as needed for Pain, Mild. 30 Tablet 0 ??? ibuprofen (MOTRIN) 600 mg tablet Take 1 Tablet (600 mg) by mouth every 6 hours as needed for Pain, Mild. 20 Tablet 0 No current facility-administered medications on file prior to visit. Allergies Allergen Reactions ??? No Known Allergies Past Medical History: Diagnosis Date ??? Patient denies relevant medical history Past Surgical History: Procedure Laterality Date ??? HX TONSILLECTOMY ??? CO CONIZATION CERVIX,LOOP ELECTRD N/A 09/23/2017 LOCAL CERVICAL CONE LEEP performed by Enrique Mckinney MD at [facility] OR [facility] ??? CO CONIZATION CERVIX,LOOP ELECTRD N/A 03/24/2018 LOCAL CERVICAL CONE LEEP performed by Enrique cMkinney MD at [facility] OR [facility] ??? TONSILLECTOMY Family History Problem Relation Name Age of Onset ??? Healthy Father ??? Healthy Mother ??? Cancer Mother Social History Tobacco Use ??? Smoking status: Never Smoker ??? Smokeless tobacco: Never Used Substance Use Topics ??? Alcohol use: Yes Comment: social ROS: Feeling well. No dyspnea or chest pain on exertion. No abdominal pain, change in bowel habits,black or bloody stools. No urinary tract symptoms. SALES REPRESENTATIVE MEATS ROS: normal menses, no abnormal bleeding, pelvic pain or discharge, no breast pain or new or enlarging lumps on self exam. No neurological complaints. Denies incont. OBJECTIVE: The patient appears well, alert, oriented x 3, in no distress. BP 124/74 Ht 5' 2 (1.575 m) Wt 60.3 kg (133 lb) LMP 09/25/2019 No BMI 24.33 kg/m?? ENT normal. Neck supple. No adenopathy or thyromegaly. LEDY. Lungs are clear, good air entry, no wheezes, rhonchi or rales. S1 and S2 normal, no murmurs, regular rate and rhythm. Abdomen soft without tenderness, guarding, mass or organomegaly. Extremities show no edema, normal peripheral pulses. Neurological is normal, no focal findings. BREAST EXAM: breasts appear normal, no suspicious masses, no skin or nipple changes or axillary nodes PELVIC EXAM: normal external genitalia, vulva, vagina, cervix, uterus and adnexa ASSESSMENT: well woman Hx HGSIL PLAN: mammogram pap smear counseled on breast self exam, mammography screening, family planning choices and adequate intake of calcium and vitamin D return annually or prn STOCK HANDLER documented in this encounter Plan of Treatment Upcoming Encounters Date Type Department Care Team (Late st Contact Info) Description 08/23/2024 11:15 AM LIVESTOCK HANDLER Office Visit [facility] Oncology and Hematology - [address] [facility] [address] [place] [address] Michele Smith MD [address] [facility] [address] [place] [address] documented as of this encounter Procedures Procedure Name Priority Date/Time Associated Diagnosis Comments CERV/VAG CYTO AGE BASED SCREEN PAP Routine 09/29/2019 1:04 PM LIVESTOCK HANDLER Well woman exam with routine gynecological exam documented in this encounter Results * CERV/VAG CYTO AGE BASED SCREEN PAP (09/29/2019 1:04 PM LIVESTOCK HANDLER) COMMENT (PAP): SEE COMMENT 0 12:00 PM LIVESTOCK HANDLER [facility] Comment: This order for age-based cervical cancer and STI screening follows ACOG guidelines(PB 168, 140, TTB803). See individual assays for performing site location. CLINICAL INFORMATION Information not provided 10/05/2019 12:00 PM LIVESTOCK HANDLER [facility] LAST MENSTRUAL PERIOD Information not provided 10/05/2019 12:00 PM LIVESTOCK HANDLER [facility] PREV PAP: Information not provided 10/05/2019 12:00 PM LIVESTOCK HANDLER [facility] PREV BX: Information not provided 10/05/2019 12:00 PM LIVESTOCK HANDLER [facility] SOURCE Endocervix 10/05/2019 12:00 PM LIVESTOCK HANDLER [facility] ADEQUACY: SEE COMMENT 10/05/2019 12:00 PM LIVESTOCK HANDLER [facility] Comment: Satisfactory for evaluation. Endocervical/transformation zone component present. PAP INTERP Negative for intraepithelial lesion or malignancy. 10/05/2019 12:00 PM LIVESTOCK HANDLER [facility] COMMENT This Pap test has been evaluated with computer assisted technology. 10/05/2019 12:00 PM LIVESTOCK HANDLER [facility] OUTSIDE INSTALLATION MACHINIST: SEE COMMENT 2019 12:00 PM LIVESTOCK HANDLER [facility] Comment: LVA, CT(ASCP) CT screening location: [place] [address] [address] JUANY Bowser [address] REVIEW OUTSIDE INSTALLATION MACHINIST: SEE COMMENT 10/05/2019 12:00 PM LIVESTOCK HANDLER [facility] Comment: DDS, CT(ASCP) CT screening location: [place] [address] Administration JUANY Bowser [facility] EXPLANATORY NOTE SEE COMMENT 020 12:00 PM LIVESTOCK HANDLER [facility] Comment: EXPLANATORY NOTE: The [...] information. HPV E6/E7 Not Detected Not Detected 10/05/2019 12:00 PM LIVESTOCK HANDLER [facility] Comment: This test was performed using the APTIMA HPV Assay ([employer] This assay detects E6/E7 viral messenger RNA (mRNA) from 14 high-risk HPV types (16,18,31,33,35,39,45,51,52,56,58,59,66,68). The analytical performance characteristics of this assay have been determined by [employer]. The modifications have not been cleared or approved by the FDA. This assay has been validated pursuant to the CLIA regulations and is used for clinical purposes. Genital SWAB OF ENDOCERVIX / Unknown Collection / Unknown 09/29/2019 1:04 PM LIVESTOCK HANDLER 09/29/2019 8:03 PM LIVESTOCK HANDLER Narrative [facility] - 10/05/2019 12:00 PM LIVESTOCK HANDLER Performing Organization Information: ?Site ID: [id number] ?Name: [email or web address] ?Address: [address] [place] [id number] ?Director: Robby Steven D.O., BONG ?Site ID: [id number] ?Name: [email or web address] ?Address: [facility] [place] [address] ?Director: Parth Herrera Enrique Mckinney MD PATHOLOGY/CYTOLOGY O AVIVA [facility] [phone] documented in this encounter Visit Diagnoses Diagnosis Well woman exam with routine gynecological exam- Primary Routine gynecological examination Breast cancer screening by mammogram documented in this encounter Care Teams Chief Fishery Division Relationship Specialty Start Date End Date Roxanna Acosta MD PCP - General Family Practice 02/19/12 documented as of this encounter
--- OUTSIDE RECORDS SUMMARY | 2024-07-24 09:42 | XMS_ITS | Encounter Summary ---
Author Organization [facility] Address [address] [place] [address] Care Team Providers Care Beading Installer Name Role Phone Roxanna Acosta MD Primary Care Provider Reason for Visit * Auth/Cert (Routine) Specialty Diagnoses / Procedures Referred By Contac t Referred To Contact Procedures [place] CONIZATION CERVIX,LOOP ELECTRD Referral ID Status Reason Start Date Expiration Date Visits Re quested Visits Authorized [id number] 02/12/2018 03/15/2019 1 1 Encounter Details Date Type Department Care Team (Latest Contact Info) Description 03/24/2018 7:07 AM CDT - 03/24/2018 10:10 AM CDT Hospital Encounter [facility] Pending Sale To [facility] [address] [place] [address] Enrique Mckinney MD [address] [facility] [address] [place] [address] HGSIL (high grade squamous intraepithelial lesion) on Pap smear of cervix Discharge Disposition: Home or Self Care Social [...] Sign Reading Time Taken Comments Blood Pressure 99/67 03/24/2018 9:50 AM CDT Pulse 78 03/24/2018 7:37 AM CDT Temperature 36.8 ??C (98.3 ??F) 03/24/2018 9:50 AM CD T Respiratory Rate 15 03/24/2018 9:50 AM CDT Oxygen Saturation 100% 03/24/2018 9:50 AM CDT Inhaled Oxygen Concentration - - Weight 63 kg (139 lb) 03/24/2018 7:37 AM CDT Height 157.5 cm (5' 2 ) 03/24/2018 7:37 AM CDT Body Mass Index 25.42 03/24/2018 7:37 AM CDT documented in this encounter Discharge Instructions * Attachments The following attachments cannot be sent through Care Everywhere. * LEEP (Loop Electrosurgical Excision Procedure): Post-op (Puerto Rican) documented in this encounter Medications at Time [...] Lundberg MD - 03/24/2018 7:15 AM CDT BUILDING CONSTRUCTION FOREMAN History & Physical CC: LEEP HPI: Rosalba Jimenez is a 37 y.o. who presents for LEEP for HSIL s/p LEEP with TRUMAN 3 at margins in September,. She denies nausea, vomiting, diarrhea, dysuria or hematuria.?? Her primary Edgerman is Enrique Mckinney MD. ROS: As above. [...] lb 8 oz) M Vag-Spont None 4 2006 3 2006 2 Term 11/2005 3402 g (7 lb 8 oz) M Vag-Spont None 1 Term 11/2004 F Vag-Spont None PMHx: Past Medical History: Diagnosis Date ??? Patient denies relevant medical history PSHx: Past Surgical History: Procedure Laterality Date ??? HX TONSILLECTOMY ??? [place] CONIZATION CERVIX,LOOP ELECTRD N/A 09/23/2017 LOCAL CERVICAL CONE LEEP performed by Enrique Mckinney MD at [facility] ??? TONSILLECTOMY FHx: Negative for breast, colon, [...] time. Maximus Lundberg MD OBGYN PGY1 Pager [phone] 03/24/18 8:03 AM documented in this encounter [...] 03/24/2018 8:43 AM CDT Operative Report : [facility] Patient: Rosalba Aldridge Jimenez / 37 y.o. / female : 1980 Date: 03/24/2018 CSN: [id number] Procedure: LEEP Date of Surgery: 03/24/2018 Pre-operative Diagnosis: TRUMAN III Post-operative Diagnosis: same Surgeon: Enrique Mckinney MD Stocking Inspector: Diamond COBIAN Anesthesia: General anesthesia with LMA, [...] st Contact Info) Description 08/23/2024 11:15 AM RADAR TESTER Office Visit [facility] Oncology and Hematology - [place] [address] [facility] [address] [place] [address] Michele Smith MD [address] [facility] [address] [place] [address] documented as of this encounter Procedures Procedure Name Priority Date/Time Associated Diagnosis Comments PATHOLOGY Pathology 03/24/2018 8:34 AM CDT POC HEMOGLOBIN Routine 03/24/2018 7:47 AM CDT RETIRED LOCAL CERVICAL CONE LEEP 03/24/2018 7:45 AM CDT HGSIL Case Notes [facility]--PP--CPT 66870 POC , URINE Routine 03/24/2018 7:38 AM CDT documented in this encounter Results * PATHOLOGY (03/24/2018 8:34 AM CDT) CASE REPORT Surgical Pathology Report ? Case: [id number] ? Authorizing Provider: ??Enrique Mckinney MD ? Collected: ? 03/24/2018 08:34 AM ? Ordering Location: ? [facility] ?Received: ?03/24/2018 10:20 AM ? Operating Room ? Pathologist: ? Stephy Mcneil MD ? Specimens: ?? A) - Cervix, cervix stitich at 12 o'clock ? B) - Endocervix ? 8 3:59 PM [facility] FINAL DIAGNOSIS Cervix, LEEP: - Transformation zone mucosa with high grade squamous intraepithelial lesion (TRUMAN 2-3). - Margins negative for HSIL. - Negative for invasive carcinoma. Endocervix, LEEP: - Benign endocervical mucosa. See comment. 3:59 PM [facility] IMEN DESCRIPTION (A) Cervix, stitch at 12 o'clock; (B) endocervix. 3:59 PM [facility] OPERATIVE PROCEDURE Local cervical cone LEEP, BMI 26. 3:59 PM [facility] CLINICAL DIAGNOSIS High-grade squamous intraepithelial lesion. 3:59 PM [facility] GROSS DESCRIPTION The specimens are received in [...] submitted in cassettes B1 and B2. MICHAEL/laxmi 8 3:59 PM CDT [facility] MICROSCOPIC DESCRIPTION Received are slides labeled [id number] and Rosalba Jimenez. The patient's history of HSIL on a preceding LEEP ([id number]) and subsequent Pap test demonstrating HSIL (January [...] endocervical LEEP consists of benign endocervical mucosa. 8 3:59 PM CDT [facility] COMMENT Special stain and/or immunohistochemical results are interpreted with controls that demonstrate appropriate staining reactions. Note on use of immunocytochemistry reagents: This test was developed and its performance characteristic determined by [facility], Department of Laboratory Medicine. It has [...] WF, WB and WH are performed by [address], [address]. All other case types are performed by [address] [facility], [address]. 8 3:59 PM CDT [facility] Tissue CERVIX UTERI STRUCTURE / Unknown Collection / Unknown 03/24/2018 8:34 AM CDT 03/24/2018 10:20 AM CDT Tissue specimen (specimen) SWAB OF ENDOCERVIX / Unknown 03/24/2018 8:34 AM CDT 03/24/2018 10:20 AM CDT Enrique Mckinney MD PATHOLOGY/CYTOLOGY O RDERABLES Performing Organization Address [facility] [place]/ZIP Co de Phone Number [facility]# [id number] [address] [place] [address] * (ABNORMAL) POC HEMOGLOBIN (03/24/2018 7:47 AM CDT) HEMOGLOBIN POC 11.4(L) 11.8 - 14.8 g/dL 03/24/2018 10:42 AM CDT [facility] Blood, capillary 03/24/2018 7:47 AM CDT 03/24/2018 10:42 AM CDT Enrique Mckinney MD POINT OF CARE TESTIN G Performing Organization Address [facility] [place] Co de Phone Number [facility]# [id number] [address] [place] [address] * POC , URINE (03/24/2018 7:38 AM CDT) HCG QUAL URINE Negative Negative 03/24/2018 10:31 AM CDT [facility] Urine 03/24/2018 7:38 AM CDT 03/24/2018 10:30 AM CDT Enrique Mckinney MD POINT OF CARE TESTIN Josafat Performing Organization Address [facility] Co de Phone Number [facility] CLIA# [id number] [address] [place] [address] documented in this encounter Visit Diagnoses Diagnosis HGSIL (high grade squamous intraepithelial lesion) on Pap smear of cervix Status post LEEP (loop electrosurgical excision procedure) of cervix Other postprocedural status documented in this encounter Administered Medications Inactive Administered Medications - up to 3 most recent administrations Medication Order MAR Action Action Date Dose Rate Site lactated Ringers solution IV, at 150 mL/hr, CONTINUOUS, Starting on Fri03/24/18 at 0800, Until Fri03/24/18 at 1219, Routine New Bag 03/24/2018 7:50 AM CDT 150 mL /hr morphine injection 4 mg 4 mg, IV, [...] Given 03/24/2018 9:37 AM CDT 1 Tablet documented in this encounter Active and Recently [...] MD) documented in this encounter Care Teams Beading Installer Relationship Specialty Start Date End Date Roxanna Acosta MD PCP - General Family Practice 02/19/12 documented as of this encounter
--- OUTSIDE RECORDS SUMMARY | 2024-07-24 09:42 | XMS_ITS | Encounter Summary ---
Author Organization [facility] Address [address] [place] [address] Care Team Providers Care Lifestyle Director Name Role Phone Roxanna Acosta MD Primary Care Provider [phone] Encounter Details Date Type Department Care Team (Late Contact Info) Description 11/25/2023 External Device Data STL ABSTRACTION Provider, Abstract [...] Upcoming Encounters Date Type Department Care Team ([facility] Contact Info) Description 08/23/2024 11:15 AM PIECE MARKER SMALL ARMS Office Visit [facility] Oncology and Hematology - [place] [address] [facility] [address] [facility] [address] [place] [address] Michele Smith MD [address] [facility] [address] [place] [address] documented as of this encounter Visit Diagnoses Not on filedocumented in this encounter Care Teams Lifestyle Director Relationship Specialty Start Date End Date Roxanna Acosta MD PCP - General Family Practice 02/19/12 documented as of this encounter
--- OUTSIDE RECORDS SUMMARY | 2024-07-24 09:42 | XMS_ITS | Encounter Summary ---
Author Organization [facility] Address [address] [place] [address] Care Team Providers Care Manufacture Specialist Name Role Phone Roxanna Acosta MD Primary Care Provider Encounter Details Date Type Department Care Team (Late Contact Info) Description 09/19/2023 External Device Data STL ABSTRACTION Provider, Abstract [...] Upcoming Encounters Date Type Department Care Team ([facility] Contact Info) Description 08/23/2024 11:15 AM GROUNDSKEEPER SUPERVISOR Office Visit [facility] Oncology and Hematology - [place] [address] [facility] [address] [address] [place] [address] Michele Smith MD [address] [facility] [address] [place] [address] documented as of this encounter Visit Diagnoses Not on filedocumented in this encounter Care Teams Manufacture Specialist Relationship Specialty Start Date End Date Roxanna Acosta MD PCP - General Family Practice 02/19/12 documented as of this encounter
--- OUTSIDE RECORDS SUMMARY | 2024-07-24 09:42 | XMS_ITS | Encounter Summary ---
Author Organization [facility] Address [address] [place] [address] Care Team Providers Care Cinder Pitman Name Role Phone Roxanna Acosta MD Primary Care Provider Encounter Details Date Type Department Care Team (Late Contact Info) Description 02/03/2024 External Device Data STL ABSTRACTION Provider, Abstract [...] Health Contact Info) Description 08/23/2024 11:15 AM STAYING MACHINE OPERATOR Office Visit [facility] Oncology and Hematology - [place] [address] [facility] [address] [place] [address] Michele Smith MD [address] [facility] [address] [place] [address] documented as of this encounter Visit Diagnoses Not on filedocumented in this encounter Care Teams Cinder Pitman Relationship Specialty Start Date End Date Roxanna Acosta MD PCP - General Family Practice 02/19/12 documented as of this encounter
--- OUTSIDE RECORDS SUMMARY | 2024-07-24 09:42 | XMS_ITS | Encounter Summary ---
Author Organization [facility] Address [address] [place] [address] Care Team Providers Care Public Health Policy Analyst Name Role Phone Roxanna Acosta MD Primary Care Provider Reason for Visit * Reason Comments Well Woman Exam Encounter Details Date Type Department Care Team (Latest Contact Info) Description 11/10/2020 1:10 PM CDT Office Visit [facility] DATA BASE DESIGN ANALYST - [address] [address] Enrique Mckinney MD [address] [place] [address] [place] [phone] Well woman exam with routine gynecological exam (Primary Dx); Visit for screening mammogram Social History Tobacco Use Types Packs/Day [...] have Coronavirus / COVID-19? No / Unsure 11/10/2020 12:48 PM CDT documented as of this encounter Last Filed Vital Signs Vital Sign Reading Time Taken Comments Blood Pressure 116/70 11/10/2020 1:11 PM CDT Pulse - - Temperature - - Respiratory Rate - - Oxygen Saturation - - Inhaled Oxygen Concentration - - Weight 62.6 kg (138 lb) 11/10/2020 1:11 PM CDT Height 157.5 cm (5' 2 ) 11/10/2020 1:11 PM CDT Body Mass Index 25.24 11/10/2020 1:11 PM CDT documented in this encounter Progress Notes * Enrique Mckinney MD - 11/10/2020 1:34 PM CDT SUBJECTIVE: 40 y.o. female for annual routine Pap and checkup. Patient's last menstrual period was 11/06/2020. Patient Active Problem List Diagnosis Date Noted [...] Procedure Laterality Date ??? HX TONSILLECTOMY ??? [place] CONIZATION CERVIX,LOOP ELECTRD N/A 09/23/2017 LOCAL CERVICAL CONE LEEP performed by Enrique Mckinney MD at [facility] ??? [place] CONIZATION CERVIX,LOOP ELECTRD N/A 03/24/2018 LOCAL CERVICAL CONE LEEP performed by Enrique Mckinney MD at [facility] OR [facility] ??? TONSILLECTOMY Family History Problem Relation Name [...] or bloody stools. No urinary tract symptoms. TRACK RIDER ROS: normal menses, no abnormal bleeding, pelvic pain or discharge, no breast pain or new or enlarging lumps on self exam. No neurological complaints. Denies incont. Non smoker. OBJECTIVE: The patient appears well, alert, oriented x 3, in no distress. BP 116/70 Ht 5' 2 (1.575 m) Wt 62.6 kg (138 lb) LMP 11/06/2020 No BMI 25.24 kg/m?? ENT normal. Neck supple. No adenopathy [...] uterus and adnexa ASSESSMENT: well woman Hx TRUMAN 3 PLAN: mammogram pap smear counseled on breast self exam, mammography screening and adequate intake of calcium and vitamin D return annually or prn documented in this encounter Plan of Treatment Upcoming Encounters Date Type Department Care Team (Late st Contact Info) Description 08/23/2024 11:15 AM CONTROL INTEGRATION ENGINEER Office Visit [facility] Oncology and Hematology - [place] [address] [facility] [address] [place] [address] Michele Smith MD [address] [facility] [address] [place] [address] documented as of this encounter [...] STI screening follows ACOG guidelines(PB 168, 140, RYA340). See individual assays for performing site location. [...] ADEQUACY: SEE COMMENT 11/16/2020 2:34 PM CDT [facility] Comment: Satisfactory for evaluation. Endocervical/transformation zone component present. Age and/or menstrual status not provided PAP INTERP Negative for intraepithelial lesion or malignancy. 11/16/2020 2:34 PM CDT [facility] COMMENT This Pap test has been evaluated with computer assisted technology. 11/16/2020 2:34 PM CDT [facility] MECHANICAL RELIABILITY ENGINEER: SEE COMMENT 2020 2:34 PM CDT [facility] Comment: ASHLEY, CT(ASCP) CT Screening location: [facility] Administration JUANY Bowser [facility] REVIEW MECHANICAL RELIABILITY ENGINEER: SEE COMMENT 11/16/2020 2:34 PM CDT [facility] Comment: TONEY, CT(ASCP) CT Screening location: [place] [address] Administration JUANY Bowser [facility] EXPLANATORY NOTE SEE COMMENT 021 2:34 PM CDT [facility] Comment: EXPLANATORY NOTE: The Pap is a [...] Detected Not Detected 11/16/2020 2:34 PM CDT [facility] Comment: Methodology: Pig Machine Operator Helper-Mediated Amplification This assay detects E6/E7 viral messenger RNA (mRNA) from 14 high-risk HPV types (16,18,31,33,35,39,45,51,52,56,58,59,66,68). The analytical performance characteristics of this assay have been determined by [facility]. The modifications have not been cleared or approved by the FDA. This assay has been validated pursuant to the CLIA regulations and is used for clinical purposes. For additional information, please refer to http://education.[employer]/faq/EGO450r8 (This link if provided for information/ educational purposes only.) Genital SWAB OF ENDOCERVIX / Unknown Collection / Unknown 11/10/2020 1:42 PM CDT 11/10/2020 9:41 PM CDT Narrative [facility] - 11/16/2020 2:34 PM CDT Performing Organization Information: ?Site ID: [place] ?Name: [facility] ?Address: [facility] [place] [address] ?Director: Robby Steven D.O., MPH ?Site ID: ?Name: [facility] ?Address: [facility] [place] [address] ?Director: Parth Herrera Enrique Mckinney MD PATHOLOGY/CYTOLOGY O RDERABLES [facility] [phone] documented in this encounter Visit Diagnoses Diagnosis Well woman exam with routine gynecological exam- Primary Routine gynecological examination Visit for screening mammogram Other screening mammogram documented in this encounter Care Teams Public Health Policy Analyst Relationship Specialty Start Date End Date Roxanna Acosta MD PCP - General Family Practice 02/19/12 documented as of this encounter
--- OUTSIDE RECORDS SUMMARY | 2024-07-24 09:42 | XMS_ITS | Encounter Summary ---
Author Organization [facility] Address [address] [place] [address] Care Team Providers Care Curtain Stitcher Name Role Phone Roxanna Acosta MD Primary Care Provider Encounter Details Date Type Department Care Team (Latest Contact Info) Description 06/12/2023 10:00 AM STRADDLE BUG DRIVER Ancillary Procedure [facility] PACKAGING LINE ATTENDANT - [facility] [place] [facility] [address] [facility] [address] [address] Abnormal uterine bleeding (AUB) Social History Tobacco Use Types Packs/Day Years [...] st Contact Info) Description 08/23/2024 11:15 AM STRADDLE BUG DRIVER Office Visit [facility] Oncology and Hematology - [place] [address] [place] [address] Michele Smith MD [address] [facility] [address] [place] [address] documented as of this encounter Procedures Procedure Name Priority Date/Time Associated Diagnosis Comments US PELVIC TRANSVAGINAL Routine 06/12/2023 9:51 AM STRADDLE BUG DRIVER Abnormal uterine bleeding (AUB) documented in this encounter Results * US PELVIC TRANSVAGINAL (06/12/2023 9:51 AM [facility]) Anatomical Region Laterality Modality Pelvis Ultrasound 06/12/2023 9:42 AM STRADDLE BUG DRIVER Narrative 06/12/2023 10:47 AM [facility] PELVIC ULTRASOUND ----- Pat. Name: ASHOK JIMENEZ Study Date: 06/12/2023 9:42am Pat. NO: [id number] Referring ??MD: LYNDSAY MILES Site: [address] Mannequin Mounter: Abena Govea RDMS : 1980 Age: 43 ----- INDICATION ----- Dysfunctional Uterine Bleeding (DUB) CODING ----- Diagnoses ? N93.8: Other specified abnormal uterine and vaginal bleeding Procedures ?91405: Ultrasound non OB transvaginal METHOD ----- LAUNDRY PRESSER Transvaginal US Examination UTERUS ----- Long 79 mm x ap 45 mm x tr 55 mm. Vol 101.3 cm?? The uterus is normal sized, anteverted and empty. Endometrium: Appears irregularly thickened. Endometrial thickness, total 13.1 mm RIGHT OVARY ----- appears normal in size, shape, structure and morphology. Size 18 mm x 23 mm x 25 mm. Vol 5.4 cm?? LEFT OVARY ----- Enlarged (>= 10 mL). Size 39 mm x 27 mm x 25 mm. Vol 13.9 cm?? Cyst(s) ? Size 29 mm x 15 mm x 22 mm. Mean 22.1 mm. Vol 5.101 cm??. Simple CUL DE SAC ----- No free fluid is seen IMPRESSION ----- Uterus is anteverted and measures 79 x 45 x 55 mm Myometrium appears homogeneous Appears irregularly thickened. The endometrium measures 13.1 mm Right Ovary appears normal in size, shape, structure and morphology. Left Ovary Enlarged (>= 10 mL). It contains a 22.1 mm simple cyst. Posterior cul de sac: No free fluid is seen Procedure Note Lyndsay Miles MD - 06/12/2023 [facility] PELVIC ULTRASOUND ----- Pat. Name:Debbie JIMENEZ Date:06/12/2023 9:42am Pat. NO: [id number] MD:LYNDSAY MILES [address]:Abena Govea RDMS :1980Age:43 ----- INDICATION ----- Dysfunctional Uterine Bleeding (DUB) CODING ----- Diagnoses N93.8: Other specified abnormal uterine andvaginal bleeding Procedures 47915: Ultrasound non OB transvaginal METHOD ----- LAUNDRY PRESSER Transvaginal US Examination UTERUS ----- Long 79 mm x ap 45 mm x tr 55 mm. Vol 101.3 cm?? The uterus is normal sized, anteverted and empty. Endometrium: Appears irregularly thickened. Endometrial thickness, total 13.1 mm RIGHT OVARY ----- appears normal in size, shape, structure and morphology. Size 18 mm x 23 mm x 25 mm. Vol 5.4 cm?? LEFT OVARY ----- Enlarged (>= 10 mL). Size 39 mm x 27 mm x 25 mm. Vol 13.9 cm?? Cyst(s) Size 29 mm x 15 mm x 22 mm. Mean 22.1 mm. Vol5.101 cm??. Simple CUL DE SAC ----- No free fluid is seen IMPRESSION ----- Uterus is anteverted and measures 79 x 45 x 55 mm Myometrium appears homogeneous Appears irregularly thickened. The endometrium measures 13.1 mm Right Ovary appears normal in size, shape, structure and morphology. Left Ovary Enlarged (>= 10 mL). It contains a 22.1 mm simple cyst. Posterior cul de sac: No free fluid is seen Lyndsay Miles MD US ORDERABLES documented in this encounter Visit Diagnoses Diagnosis Abnormal uterine bleeding (AUB) documented in this encounter Care Teams Curtain Stitcher Relationship Specialty Start Date End Date Roxanna Acosta MD PCP - General Family Practice 02/19/12 documented as of this encounter
--- OUTSIDE RECORDS SUMMARY | 2024-07-24 09:42 | XMS_ITS | Encounter Summary ---
Author Organization [facility] Address [address] [place] [address] Care Team Providers Care Nuclear Power Reactor Operator Name Role Phone Roxanna Acosta MD Primary Care Provider Encounter Details Date Type Department Care Team (Late Contact Info) Description 10/03/2023 External Device Data STL ABSTRACTION Provider, Abstract [...] Upcoming Encounters Date Type Department Care Team ([facility] Contact Info) Description 08/23/2024 11:15 AM CHAR FILTER OPERATOR Office Visit [facility] Oncology and Hematology - [place] [address] [place] [address] Michele Smith MD [address] [facility] [address] [place] [address] documented as of this encounter Visit Diagnoses Not on filedocumented in this encounter Care Teams Nuclear Power Reactor Operator Relationship Specialty Start Date End Date Roxanna Acosta MD PCP - General Family Practice 02/19/12 documented as of this encounter
--- OUTSIDE RECORDS SUMMARY | 2024-07-24 09:42 | XMS_ITS | Encounter Summary ---
Author Organization [facility] Address [address] [place] [address] Care Team Providers Care Director Occupational Name Role Phone Roxanna Acosta MD Primary Care Provider Reason for Visit * Reason Comments Repeat Pap Smear 03/21 LEEP pathology benign Encounter Details Date Type Department Care Team (Late st Contact Info) Description 10/07/2018 1:00 PM VICE PRESIDENT BUSINESS & CORPORATE DEVELOPMENT Office Visit [facility] PONY CYLINDER PRESS OPERATOR - [address] [place] [phone] Enrique Miles MD [address] [place] [address] [place] [phone] HGSIL on Pap smear of cervix (Primary Dx) [...] Sign Reading Time Taken Comments Blood Pressure 108/72 10/07/2018 1:01 PM VICE PRESIDENT BUSINESS & CORPORATE DEVELOPMENT Pulse - - Temperature - - Respiratory Rate - - Oxygen Saturation - - Inhaled Oxygen Concentration - - Weight 54.4 kg (120 lb) 10/07/2018 1:01 PM VICE PRESIDENT BUSINESS & CORPORATE DEVELOPMENT Height 157.5 cm (5' 2 ) 10/07/2018 1:01 PM VICE PRESIDENT BUSINESS & CORPORATE DEVELOPMENT Body Mass Index 21.95 10/07/2018 1:01 PM VICE PRESIDENT BUSINESS & CORPORATE DEVELOPMENT documented in this encounter Progress Notes * Enrique Miles MD - 10/07/2018 1:23 PM CST SUBJECTIVE: 38 y.o. female for annual routine Pap and checkup. Patient's last menstrual period was 09/23/2018 (exact date). Patient Active Problem List Diagnosis Date Noted [...] LOCAL CERVICAL CONE LEEP performed by Enrique Miles MD at [facility] ??? [place] CONIZATION CERVIX,LOOP ELECTRD N/A 03/24/2018 LOCAL CERVICAL CONE LEEP performed by Enrique Miles MD at [facility] ??? TONSILLECTOMY Family History Problem Relation Age of Onset ??? Healthy Father ??? Healthy Mother ??? Cancer Mother Social History Substance Use Topics ??? Smoking status: Never Smoker ??? Smokeless tobacco: Never Used ??? Alcohol use Yes Comment: social ROS: Feeling well. No dyspnea or chest pain on exertion. No abdominal pain, change in bowel habits,black or bloody stools. No urinary tract symptoms. OUTSOLE MOLDER ROS: normal menses, no abnormal bleeding, pelvic pain or discharge, no breast pain or new or enlarging lumps on self exam. No neurological complaints. OBJECTIVE: The patient appears well, alert, oriented x 3, in no distress. BP 108/72 (BP Location: Right arm, Patient Position (BP): Sitting, BP Cuff Size: Adult) Ht 5' 2 (1.575 m) Wt 54.4 kg (120 lb) LMP 09/23/2018 (Exact Date) ? No BMI 21.95 kg/m?? ENT normal. Neck supple. No adenopathy [...] uterus and adnexa ASSESSMENT: well woman Hx of HGSIL PLAN: mammogram pap smear counseled on breast self exam, mammography screening, menopause, osteoporosis and adequate intake of calcium and vitamin D return annually or prn PRESIDENT BUSINESS & CORPORATE DEVELOPMENT * Enrique Miles MD - 10/07/2018 1:16 PM CST PRESIDENT BUSINESS & CORPORATE DEVELOPMENT documented in this encounter Miscellaneous Notes * Addendum Note - Enrique Miles MD - 10/07/2018 1:23 PM CSTAddended by: ENRIQUE MILES on: 10/07/2018 01:23 PM Modules accepted: Level of Service, SmartSet PRESIDENT BUSINESS & CORPORATE DEVELOPMENT documented in this encounter Plan of Treatment Upcoming Encounters Date Type Department Care Team (Late st Contact Info) Description 08/23/2024 11:15 AM VICE PRESIDENT BUSINESS & CORPORATE DEVELOPMENT Office Visit [facility] Oncology and Hematology - [place] [address] Tash[address]ancini [address] [address] Michele Smith MD [address] [facility] [employer] [address] [place] [phone] documented as of this encounter Procedures Procedure Name Priority Date/Time Associated Diagnosis Comments CERV/VAG CYTO AGE BASED SCREEN PAP Routine 10/07/2018 2:25 PM VICE PRESIDENT BUSINESS & CORPORATE DEVELOPMENT HGSIL on Pap smear of cervix documented in this encounter Results * (ABNORMAL) CERV/VAG CYTO AGE BASED SCREEN PAP (10/07/2018 2:25 PM VICE PRESIDENT BUSINESS & CORPORATE DEVELOPMENT) COMMENT (PAP): SEE COMMENT 11:01 AM CDT [facility] Comment: This order for age-based cervical cancer and STI screening follows ACOG guidelines(PB 168, 140, KWO809). See individual assays for performing site location. CLINICAL INFORMATION Routine exam 10/14/2018 11:01 AM CDT [facility] LAST MENSTRUAL PERIOD 09/23/18 10/14/2018 11:01 AM CDT [facility] PREV PAP: 01/28/18 HSIL 10/14/2018 11:01 AM CDT [facility] PREV BX: INFORMATION NOT PROVIDED 10/14/2018 11:01 AM CDT [facility] SOURCE Endocervix 10/14/2018 11:01 AM CDT [facility] ADEQUACY: SEE COMMENT 10/14/2018 11:01 AM CDT [facility] Comment:Satisfactory for shani luation. Endocervical/transformation zone component absent. GENERAL CATEGORIZATION: EPITHELIAL CELL ABNORMALITY(A) 10/14/2018 11:01 AM CDT [facility] PAP INTERP Atypical Squamous Cells of Undetermined Significance (ASC-US)(A) 10/14/2018 11:01 AM CDT [facility] COMMENT SEE COMMENT 10/14/2018 11:01 AM CDT [facility] Comment: This Pap test has been evaluated with computer assisted technology. Suggest clinical correlation and follow-up as clinically appropriate RETAIL PROPERTY MANAGER: LAYNE ASHLEY(ASCP) 10/02 11:01 AM CDT [facility] PATHOLOGIST SEE COMMENT 10/14/2018 11:01 AM CDT [facility] Comment: Ganesh Butcher M.D., Board Certified in Anatomic Pathology and Cytopathology. (electronic signature) EXPLANATORY NOTE SEE COMMENT 019 11:01 AM CDT [facility] Comment: EXPLANATORY [...] information. HPV E6/E7 Not Detected Not Detected 10/14/2018 11:01 AM CDT [facility] Comment: This test was performed using the APTIMA HPV Assay ([employer] This assay detects E6/E7 viral messenger RNA (mRNA) from 14 high-risk HPV types (16,18,31,33,35,39,45,51,52,56,58,59,66,68). The analytical performance characteristics of this assay have been determined by [employer]. The modifications have not been cleared or approved by the FDA. This assay has been validated pursuant to the CLIA regulations and is used for clinical purposes. Genital SWAB OF ENDOCERVIX / Unknown Collection / Unknown 10/07/2018 2:25 PM VICE PRESIDENT BUSINESS & CORPORATE DEVELOPMENT 10/07/2018 9:00 PM VICE PRESIDENT BUSINESS & CORPORATE DEVELOPMENT Narrative [facility] - 10/14/2018 11:01 AM CDT Performing Organization Information: ?Site ID: [place] ?Name[facility] ?Address: [address] [place] [address] ?Director: Robby Steven D.O., MPH ?Site ID: [place] ?[facility] ?Address: [address] [place] [address] ?Director: Parth Herrera Enrique Miles MD PATHOLOGY/CYTOLOGY O AVIVA [facility] [phone] documented in this encounter Visit Diagnoses Diagnosis HGSIL on Pap smear of cervix- Primary documented in this encounter Care Teams Director Occupational Relationship Specialty Start Date End Date Roxanna Acosta MD PCP - General Family Practice 02/19/12 documented as of this encounter
--- OUTSIDE RECORDS SUMMARY | 2024-07-24 09:42 | XMS_ITS | Encounter Summary ---
Author Organization [facility] Address [address] [place] [address] Care Team Providers Care Harvest Contractor Name Role Phone Roxanna Acosta MD Primary Care Provider Reason for Visit * Reason Onset Date Comments Results 10/27/2018 Encounter Details Date Type Department Care Team (Late st Contact Info) Description 10/27/2018 Telephone [facility] ANALYSIS SPECIALIST - Medical [address] [phone] Enrique Mckinney MD [address] [place] [phone] Results Social History Tobacco Use Types [...] * Telephone Encounter - Halle Chung - 10/27/2018 11:01 AM CDT Patient notified of results. * Telephone Encounter - Halle Chung - 10/27/2018 10:58 AM CDT ----- Message from Enrique Mckinney MD sent at 10/14/2018 4:54 PM CDT ----- Ascus pap, NEG HR HPV. Pap one year. Hx of hgsil. Reassure no worries--its like a normal! documented in this encounter Plan of Treatment Upcoming Encounters Date Type Department Care Team (Late st Contact Info) Description 08/23/2024 11:15 AM TELETYPE MECHANIC Office Visit [facility] Oncology and Hematology - [place] [address] [facility] [address] [place] [address] Michele Smith MD [address] [facility] [address] [place] [address] documented as of this encounter Visit Diagnoses Not on filedocumented in this encounter Care Teams Harvest Contractor Relationship Specialty Start Date End Date Roxanna Acosta MD PCP - General Family Practice 02/19/12 documented as of this encounter
--- OUTSIDE RECORDS SUMMARY | 2024-07-24 09:42 | XMS_ITS | Encounter Summary ---
Author Organization [facility] Address [address] [place] [address] Care Team Providers Care Insulator Apprentice Name Role Phone Roxanna Acosta MD Primary Care Provider Reason for Visit * Reason Comments Establish Care Skin check - concern ing moles on back Encounter Details Date Type Department Care Team (Late st Contact Info) Description 01/27/2018 9:45 AM CDT Office Visit [facility] DERMATOLOGY [address] [place] [address] Castro Hammer, NORM [address] [place] [address] Multiple benign nevi (Primary Dx) Social History Tobacco Use Types [...] Sign Reading Time Taken Comments Blood Pressure 114/70 01/27/2018 9:47 AM CDT Pulse - - Temperature - - Respiratory Rate - - Oxygen Saturation - - Inhaled Oxygen Concentration - - Weight 63 kg (139 lb) 01/27/2018 9:47 AM CDT Height 157.5 cm (5' 2 ) 01/27/2018 9:47 AM CDT Body Mass Index 25.42 01/27/2018 9:47 AM CDT documented in this encounter Progress Notes * Castro Hammer PA - 01/27/2018 9:46 AM CDT Dermatology Outpatient History and Physical Castro Hammer PA-C 01/27/2018 9:51 AM Patient Name: Rosalba Jimenez 1980 Primary Care Physician: Roxanna Acosta MD Date of Service: 01/27/2018 Chief Complaint Patient presents with ??? Establish Care Skin check - concerning moles on back HPI: Patient is 37 y.o. female who is seen in consultation for skin check. Patient has no personal history of skin cancer but her mother had skin cancer on her face. Patient does use sunscreen. Past Medical History: Diagnosis Date ??? Patient denies relevant medical history Past Surgical History: Procedure Laterality Date ??? HX TONSILLECTOMY ??? [place] CONIZATION CERVIX,LOOP ELECTRD N/A 09/23/2017 LOCAL CERVICAL CONE LEEP performed by Enrique Mckinney MD at [facility] ??? TONSILLECTOMY Current Medications: Current Outpatient Prescriptions Medication Sig Dispense Refill ??? ibuprofen (MOTRIN) 600 mg tablet Take 1 Tablet (600 mg) by mouth every 6 hours as needed for Pain, Mild. 20 Tablet 0 No current facility-administered medications for this visit. Medication Allergies: Allergies Allergen Reactions ??? No Known Allergies Family History Problem Relation Age of Onset ??? Healthy Father ??? Healthy Mother ??? Cancer Mother Social History Substance Use Topics ??? Smoking status: Never Smoker ??? Smokeless tobacco: Never Used ??? Alcohol use No Problem List Patient Active Problem List Diagnosis Date Noted ??? HGSIL (high grade squamous intraepithelial lesion) on Pap smear of cervix 08/29/2017 ??? S/P tonsillectomy 02/19/2012 ??? Anxiety state, unspecified 11/03/2006 Review of Systems: General ROS: negative for weight changes, fever Dermatological ROS: negative for skin rashes or unusual skin lesions Psychological ROS: negative for anxiety or depressive symptoms Physical Examination: BP 114/70 Ht 5' 2 (1.575 m) Wt 63 kg (139 lb) BMI 25.42 kg/m?? General Appearance: Garcia skin type II, Well-appearing, not in apparent distress Mood Pleasant, alert and oriented Scalp: Within normal limits Face: Light brown papule left side of forehead Neck: Within normal limits Chest: Within normal limits Abdomen: Within normal limits Back: Scattered brown homogeneous papules and macules on upper back. Upper extremities: Within normal limits Lower extremities: Within normal limits Digits and nails: Within normal limits Assessment and Plan: 1. Nevi, forehead and upper back. All clinically benign ABCDE of melanoma reviewed Sun protection Return to clinic 1 year Thank you for allowing me to participate in the evaluation and care of your patient and the family.I appreciate your thoughtful referrals. Please do not hesitate to contact me if there are any questions or concerns. Castro Hammer PA-C Dermatology [facility] (tel) (fax) documented in this encounter Plan of Treatment Upcoming Encounters Date Type Department Care Team (Late st Contact Info) Description 08/23/2024 11:15 AM GLAZING SUPERINTENDENT Office Visit [facility] Oncology and Hematology - [place] [address] [place] [address] [place] [phone] Michele Smith MD [address] [facility] [address] [place] [address] documented as of this encounter Visit Diagnoses Diagnosis Multiple benign nevi- Primary Benign neoplasm of skin, site unspecified documented in this encounter Care Teams Insulator Apprentice Relationship Specialty Start Date End Date Roxanna Acosta MD PCP - General Family Practice 02/19/12 documented as of this encounter
--- OUTSIDE RECORDS SUMMARY | 2024-07-24 09:42 | XMS_ITS | Encounter Summary ---
Author Organization [facility] Address [address] [place] [address] Care Team Providers Care Brass Cutter Name Role Phone Roxanna Acosta MD Primary Care Provider Reason for Visit * Reason Onset Date Comments General 12/03/2018 Encounter Details Date Type Department Care Team (Late Contact Info) Description 12/03/2018 Patient Outreach [facility] WORK ORDER DETAILER - Medical [address] [phone] Enrique Mckinney MD [address] [place] [phone] General Social History Tobacco Use Types Packs/Day Years [...] encounter Miscellaneous Notes * Telephone Encounter - Latonya Gregory - 12/03/2018 9:31 AM CDT RECALL LETTER SENT TO REMIND PATIENT IT IS TIME FOR A WELL WOMAN APPOINTMENT. documented in this encounter Plan of Treatment Upcoming Encounters Date Type Department Care Team (Late Contact Info) Description 08/23/2024 11:15 AM DOOR TO DOOR SELLING DISTRIBUTOR Office Visit [facility] Oncology and Hematology - [place] [address] [facility] [address] [place] [address] Michele Smith MD [address] [facility] [address] [place] [address] documented as of this encounter Visit Diagnoses Not on filedocumented in this encounter Care Teams Brass Cutter Relationship Specialty Start Date End Date Roxanna Acosta MD PCP - General Family Practice 02/19/12 documented as of this encounter
--- OUTSIDE RECORDS SUMMARY | 2024-07-24 09:42 | XMS_ITS | Encounter Summary ---
Author Organization [facility] Address [address] [place] [address] Care Team Providers Care Rail Express Clerk Name Role Phone Roxanna Acosta MD Primary Care Provider Reason for Visit * Radiology Services (Routine) - Closed Specialty Diagnoses / Procedures Referred By Sana t Referred To Contact Obstetrics and Gynecology Diagnoses Abnormal uterine bleeding (AUB) Procedures US PELVIC TRANSVAGINAL US PELVIS + TRANSVAG NON OB CHG US PELVIC NONOBSTETRIC REAL-TIME IMAGE COMPLETE CHG US TRANSVAGINAL Lyndsay Miles MD [address] [place] [phone] [facility] Afternoon Babysitter [address] [address] Referral ID Status Reason Start Date Expiration Date Visits Re quested Visits Authorized [id number] Closed 06/12/2023 07/12/2024 1 1 Encounter Details Date Type Department Care Team (Latest Contact Info) Description 07/02/2023 9:30 AM DYSLEXIA TEACHER Ancillary Procedure [facility] MORNING NEWS PRODUCER - [facility] [address] [facility] [address] [place] [address] Lyndsay Miles MD [address] [phone] Abnormal uterine bleeding (AUB) Social History [...] st Contact Info) Description 08/23/2024 11:15 AM DYSLEXIA TEACHER Office Visit [facility] Oncology and Hematology [facility] [address] [place] [address] [address] [place] [phone] Michele Smith MD [address] [facility] [address] [place] [address] documented as of this encounter Procedures Procedure Name Priority Date/Time Associated Diagnosis Comments US PELVIC TRANSVAGINAL Routine 07/02/2023 9:53 AM DYSLEXIA TEACHER Abnormal uterine bleeding (AUB) documented in this encounter Results * US PELVIC TRANSVAGINAL (07/02/2023 9:53 AM DYSLEXIA TEACHER) Anatomical Region Laterality Modality Pelvis Ultrasound 07/02/2023 9:31 AM DYSLEXIA TEACHER Narrative 07/02/2023 5:37 PM DYSLEXIA TEACHER CLINIC PELVIC ULTRASOUND ----- Pat. Name: ASHOK JIMENEZ Study Date: 07/02/2023 9:31am Pat. NO: [id number] Referring ??MD: LYNDSAY MILES Site: [facility] Retail Reset Merchandiser: Мария Gallardo RDMS : 1980 Age: 43 ----- INDICATION ----- Dysfunctional Uterine Bleeding (DUB) CODING ----- Diagnoses ? N93.8: Other specified abnormal uterine and vaginal bleeding Procedures ?27451: Ultrasound non OB transvaginal METHOD ----- INTERNAL MEDICINE PHYSICIAN ASSISTANT Transvaginal US Examination UTERUS ----- Long 87 [...] seen Procedure Note Lyndsay Miles MD - 07/02/2023 CLINIC PELVIC ULTRASOUND ----- Pat. Name:Debbie JIMENEZ Date:07/02/2023 9:31am Pat. NO: [id number] MD:LYNDSAY MILES [facility]:Мария Gallardo RDMS :1980Age:43 ----- INDICATION ----- Dysfunctional Uterine Bleeding (DUB) CODING ----- Diagnoses N93.8: Other specified abnormal uterine andvaginal bleeding Procedures 73497: Ultrasound non OB transvaginal METHOD ----- INTERNAL MEDICINE PHYSICIAN ASSISTANT Transvaginal US Examination UTERUS ----- Long 87 [...] (AUB) documented in this encounter Care Teams Rail Express Clerk Relationship Specialty Start Date End Date Roxanna Acosta MD PCP - General Family Practice 02/19/12 documented as of this encounter
--- OUTSIDE RECORDS SUMMARY | 2024-07-24 09:42 | XMS_ITS | Encounter Summary ---
Author Organization [facility] Address [address] [place] [address] Care Team Providers Care Station Gateman Name Role Phone Roxanna Acosta MD Primary Care Provider Reason for Visit * Reason Comments Post-op Visit Encounter Details Date Type Department Care Team (Latest Contact Info) Description 04/08/2018 1:10 PM CDT Office Visit [facility] BOND MANAGER - [address] [place] [address] Enrique Mckinney MD [address] [place] [address] [place] [phone] HGSIL (high grade squamous intraepithelial lesion) on Pap smear of cervix (Primary Dx); Postoperative examination Social History Tobacco Use Types Packs/Day Years [...] Sign Reading Time Taken Comments Blood Pressure 116/68 04/08/2018 1:04 PM CDT Pulse - - Temperature - - Respiratory Rate - - Oxygen Saturation - - Inhaled Oxygen Concentration - - Weight 65.3 kg (144 lb) 04/08/2018 1:04 PM CDT Height 157.5 cm (5' 2 ) 04/08/2018 1:04 PM CDT Body Mass Index 26.34 04/08/2018 1:04 PM CDT documented in this encounter Progress Notes * Enrique Mckinney MD - 04/08/2018 1:17 PM CDT Subjective: Rosalba Jimenez is a 38 y.o. female who underwent LEEP on 03/24/2018. Hospital discharge date: same Since discharge/last visit, she has been staying at home. Activity: normal activities of daily living. Pain level: none/minimal. Sleep: sleeping well Appetite: normal Bowel Habits: returned to normal Visits to ER? no Readmissions? no Visit to Primary Care Physician? no Objective: Physical Exam: BP 116/68 Ht 5' 2 (1.575 m) Wt 65.3 kg (144 lb) LMP 02/24/2018 BMI 26.34 kg/m?? General appearance: alert, in no distress Wound examination: healing appropriately. Discussed safety. Recheck in 6 month(s). Path TRUMAN 2-3 margins CLEAR. Assessment: HGSIL S/p LEEP Plan: Wound care discussed. Diet as tolerated. PAP 6 months Return to care of primary physician. documented in this encounter Plan of Treatment Upcoming Encounters Date Type Department Care Team (Late st Contact Info) Description 08/23/2024 11:15 AM CHRISTMAS TREE FARM CREW BOSS Office Visit [facility] Oncology and Hematology - [place] [address] [facility] [address] [place] [address] Michele Smith MD [address] [facility] [address] [place] [address] documented as of this encounter Visit Diagnoses Diagnosis HGSIL (high grade squamous intraepithelial lesion) on Pap smear of cervix- Primary Postoperative examination Follow-up examination, following unspecified surgery documented in this encounter Care Teams Station Gateman Relationship Specialty Start Date End Date Roxanna Acosta MD PCP - General Family Practice 02/19/12 documented as of this encounter
--- OUTSIDE RECORDS SUMMARY | 2024-07-24 09:42 | XMS_ITS | Encounter Summary ---
Author Organization [facility] Address [address] [place] [address] Care Team Providers Care Appraiser Boats And Marine Name Role Phone Roxanna Acosta MD Primary Care Provider Encounter Details Date Type Department Care Team (Late Contact Info) Description 09/25/2023 External Device Data STL ABSTRACTION Provider, Abstract [...] Upcoming Encounters Date Type Department Care Team ([facility] Contact Info) Description 08/23/2024 11:15 AM NEON LIGHT INSTALLER Office Visit [facility] Oncology and Hematology - [place] [address] [facility] [address] [place] [address] Michele Smith MD [address] [facility] [address] [place] [address] documented as of this encounter Visit Diagnoses Not on filedocumented in this encounter Care Teams Appraiser Boats And Marine Relationship Specialty Start Date End Date Roxanna Acosta MD PCP - General Family Practice 02/19/12 documented as of this encounter
--- OUTSIDE RECORDS SUMMARY | 2024-07-24 09:42 | XMS_ITS | Encounter Summary ---
Author Organization [facility] Address [address] [place] [address] Care Team Providers Care Case Maker Name Role Phone Roxanna Acosta MD Primary Care Provider Reason for Visit * Reason Comments Post-op Visit leep Encounter Details Date Type Department Care Team (Latest Contact Info) Description 10/10/2017 11:10 AM FIBERGLASS AUTO BODY REPAIRER Office Visit [facility] RN ON SITE - [address] [address] Enrique Mckinney MD [address] [place] [address] [place] [address] HGSIL (high grade squamous intraepithelial lesion) [...] Sign Reading Time Taken Comments Blood Pressure 104/70 10/10/2017 11:01 AM FIBERGLASS AUTO BODY REPAIRER Pulse - - Temperature - - Respiratory Rate - - Oxygen Saturation - - Inhaled Oxygen Concentration - - Weight 58.5 kg (129 lb) 10/10/2017 11:01 AM FIBERGLASS AUTO BODY REPAIRER Height 157.5 cm (5' 2 ) 10/10/2017 11:01 AM FIBERGLASS AUTO BODY REPAIRER Body Mass Index 23.59 10/10/2017 11:01 AM FIBERGLASS AUTO BODY REPAIRER documented in this encounter Progress Notes * Enrique Mckinney MD - 10/10/2017 11:23 AM CST Subjective: Rosalba Jimenez is a 37 y.o. female who underwent LEEP on 09/23/2017. Hospital discharge date: same Since discharge/last visit, she has been staying at home. Activity: normal activities of daily living. Pain level: none/minimal. Sleep: sleeping well Appetite: normal Bowel Habits: returned to normal Visits to ER? no Readmissions? no Visit to Primary Care Physician? no Objective: Physical Exam: BP 104/70 Ht 5' 2 (1.575 m) Wt 58.5 kg (129 lb) BMI 23.59 kg/m?? General appearance: alert, in no distress Wound examination: healing appropriately. Discussed scaring. Discussed activity. Discussed safety.. Path: HGSIL endocervical pos Assessment: HGSIL Plan: Wound care discussed. Diet as tolerated. Pap with ECC in 4 months Return to care of primary physician. RGLASS AUTO BODY REPAIRER documented in this encounter Plan of Treatment Upcoming Encounters Date Type Department Care Team (Late st Contact Info) Description 08/23/2024 11:15 AM FIBERGLASS AUTO BODY REPAIRER Office Visit [facility] Oncology and Hematology [facility] [address] [facility] [address] [place] [address] Michele Smith MD [address] [facility] [address] [place] [address] documented as of this encounter Visit Diagnoses Diagnosis HGSIL (high grade squamous intraepithelial lesion) on Pap smear of cervix- Primary documented in this encounter Care Teams Case Maker Relationship Specialty Start Date End Date Roxanna Acosta MD PCP - General Family Practice 02/19/12 documented as of this encounter
--- OUTSIDE RECORDS SUMMARY | 2024-07-24 09:42 | XMS_ITS | Encounter Summary ---
Author Organization [facility] Address [address] [place] [address] Care Team Providers Care Self Pay Representative Name Role Phone Roxanna Acosta MD Primary Care Provider Reason for Visit * Auth/Cert (Routine) Specialty Diagnoses / Procedures Referred By Sana t Referred To Contact Oncology Enrique Mckinney MD [address] [address] [facility] Infusion Center 2nd Floor [address] [place] [address] Referral ID Status Reason Start Date Expiration Date Visits Re quested Visits Authorized [id number] 1 1 Encounter Details Date Type Department Care Team (Latest Contact Info) Description 07/02/2023 1:20 PM DIRECTOR OF CLINICAL SERVICES - 07/02/2023 11:59 PM [facility] Hospital Encounter [facility] Infusion Center 2nd Fl [address] [place] [address] Enrique Mckinney MD [address] [address] Infusion Chair 7, 2nd Floor [place] Discharge Disposition: Home or Self Care Social [...] Sign Reading Time Taken Comments Blood Pressure - - Pulse - - Temperature 36.6 ??C (97.9 ??F) 07/02/2023 2:02 PM CS T Respiratory Rate 18 07/02/2023 2:02 PM DIRECTOR OF CLINICAL SERVICES Oxygen Saturation - - Inhaled Oxygen Concentration [...] as of this encounter Progress Notes * Aby Easley RN - 07/02/2023 1:30 PM CST Rosalba Jimenez admitted to [facility] for Venofer. Tolerated infusion without difficulty and monitored for 30 minutes post infusion. Denies any hypersensitivity reactions. Prior to administration, reviewed with patient/family potential side effects and the method of administration. Instruct ed patient/family to notify physician or go to ED if there are any changes in condition, verbalizedunderstanding. Discharged home. CTOR OF CLINICAL SERVICES documented in this encounter Plan of Treatment Upcoming Encounters Date Type Department Care Team (Late st Contact Info) Description 08/23/2024 11:15 AM DIRECTOR OF CLINICAL SERVICES Office Visit [facility] Oncology and Hematology - [place] [address] [facility] [address] [place] [address] Michele Smith MD [address] [facility] [address] [place] [address] documented as of this encounter Visit Diagnoses Not on filedocumented in this encounter Administered Medications Inactive Administered Medications - up to 3 most recent administrations Medication Order MAR Action Action Date Dose Rate Site iron sucrose (VENOFER) 300 mg in sodium chloride 0.9% 250 mL IVPB 300 mg, IV, ONE TIME ONLY, 1 dose, On Fri07/02/23 at 1330, Routine Rate Verify 07/02/2023 2:09 PM DIRECTOR OF CLINICAL SERVICES 200 mL/hr New Bag 07/02/2023 2:09 PM DIRECTOR OF CLINICAL SERVICES 300 mg 200 mL/hr documented in this encounter Care Teams Self Pay Representative Relationship Specialty Start Date End Date Roxanna Acosta MD PCP - General Family Practice 02/19/12 documented as of this encounter
--- OUTSIDE RECORDS SUMMARY | 2024-07-24 09:42 | XMS_ITS | Encounter Summary ---
Author Organization [facility] Address [address] [place] [address] Care Team Providers Care Forepart Laster Name Role Phone Roxanna Acosta MD Primary Care Provider Reason for Referral * Eval and Treat (Routine) - Closed Specialty Diagnoses / Procedures Referred By Sana jarquin Referred To Contact Gastroenterology Diagnoses Iron deficiency anemia due to chronic blood loss Procedures [place] OFFICE/OUTPATIENT ESTABLISHED MOD MDM 30 MIN [place] OFFICE/OUTPATIENT NEW MODERATE MDM 45 MINUTES Raissa Diaz FNP [address] [address] Camilo Siu MD [address] [place] [address] Referral ID Status Reason Start Date Expiration Date V isits Requested Visits Authorized [id number] Closed ST[facility] CTS 01/26/2024 01/25/2025 1 1 Reason for Visit * Reason Comments Anemia Encounter Details Date Type Department Care Team (Late st Contact Info) Description 01/26/2024 2:30 PM CDT Office Visit [facility] Oncology and Hematology - [place] [address] [place] [address] Raissa Diaz FNP [address] [phone] Iron deficiency anemia due to chronic blood [...] Sign Reading Time Taken Comments Blood Pressure 136/73 01/26/2024 2:44 PM CDT Pulse 77 01/26/2024 2:44 PM CDT Temperature 36.6 ??C (97.9 ??F) 01/26/2024 2:44 PM CD T Respiratory Rate 14 01/26/2024 2:44 PM CDT Oxygen Saturation 99% 01/26/2024 2:44 PM CDT Inhaled Oxygen Concentration - - Weight 65.2 kg (143 lb 12.8 oz) 01/26/2024 2:44 PM CDT Height 157.5 cm (5' 2 ) 01/26/2024 2:44 PM CDT Body Mass Index 26.3 01/26/2024 2:44 PM CDT documented in this encounter Progress Notes * Raissa Diaz, NIKITA - 01/26/2024 3:44 PM CDT Hematology / Oncology Consult Note Requesting Physician: Roxanna Acosta MD Primary Care Physician: Roxanna Acosta MD Problem List Patient Active Problem List Diagnosis Code Anxiety state, unspecified F41.1 S/P tonsillectomy Z90.89 HGSIL (high grade squamous intraepithelial lesion) on Pap smear of cervix R87.613 Status post LEEP (loop electrosurgical excision procedure) of cervix Z98.890 AUB, anemia- PRBC, iron N92.1 Acute blood loss anemia D62 RIN (iron deficiency anemia) D50.9 Previous Treatment ? Measurable Disease ? Reason for Visit: Rosalba Jimenez is a 43 y.o. female who was referred for consultation for iron deficiency anemia History of Present Illness: Rosalba Jimenez is a 43 y.o. female with a past medical history of ADHD consulted for RIN. She reportsIDA since May when she had heavy menstrual bleeding. She was given iron infusions as well as PRBC. She states her periods are normal now as she takes Lysteda intermittently. She is unable to tolerate iron supplements d/t increased stomach upset as well as generalized pain. She has reported new c onstipation / diarrhea w/ blood in her stool. She is supposed to be tested for celiac disease soon.She eats a regular diet. She denies any history of kidney disease. She reports her family taking iron as well. Reports fatigue, SOB, dizziness, and memory loss. Past Medical History Past Medical History: Diagnosis Date Attention deficit disorder with hyperactivity Depression Surgical History Past Surgical History: Procedure Laterality Date HX TONSILLECTOMY [place] CONIZATION CERVIX W/WO D&C RPR ELTRD EXC N/A 09/23/2017 LOCAL CERVICAL CONE LEEP performed by Enrique Mckinney MD at [facility] NJ CONIZATION CERVIX W/WO D&C RPR ELTRD EXC N/A 03/24/2018 LOCAL CERVICAL CONE LEEP performed by Enrique Mckinney MD at [facility] TONSILLECTOMY Medications Current Outpatient Medications Medication Sig Dispense Refill tranexamic acid (LYSTEDA) 650 mg Tablet tablet Take 2 Tablets (1,300 mg) by mouth 3 times daily. 30Tablet 3 amphetamine-dextroamphetamine (ADDERALL XR) 20 mg Extended Release 24 hour capsule Take 20 mg by mouth. ibuprofen (MOTRIN) 600 mg tablet Take 1 Tablet (600 mg) by mouth every 6 hours as needed for Pain, Mild. 20 Tablet 0 No current facility-administered medications for this visit. Allergies Allergies Allergen Reactions Benadryl Decongestant Other (See Comments) Feel bad physically and mentally Immunizations: Immunization History Administered Date(s) Administered INFLUENZA VACCINE QUADRIVALENT 6 MOS UP PF IM 06/17/2023 Family History: Family History Problem Relation Name Age of Onset Prostate Cancer Father Melanoma Mother No Known Problems Brother 3 brothers No Known Problems Sister 6 sisters No Known Problems Child No Known Problems Child No Known Problems Child No Known Problems Child Social History: Social History Tobacco Use Smoking status: Never Smokeless tobacco: Never Substance Use Topics Alcohol use: Yes Comment: social Tobacco Counseling: She is not a tobacco/nicotine user. Review of Systems All systems reviewed & are unremarkable except as noted in HPI and above Physical Exam Vitals reviewed. Constitutional: General: She is awake. Appearance: Normal appearance. She is normal weight. HENT: Head: Normocephalic and atraumatic. Mouth/Throat: Mouth: Mucous membranes are moist. Pharynx: Oropharynx is clear. Eyes: Pupils: Pupils are equal, round, and reactive to light. Cardiovascular: Rate and Rhythm: Normal rate and regular rhythm. Pulses: Normal pulses. Heart sounds: Normal heart sounds. Pulmonary: Effort: Pulmonary effort is normal. Breath sounds: Normal breath sounds. Abdominal: General: Abdomen is flat. Bowel sounds are normal. Palpations: Abdomen is soft. There is no hepatomegaly or splenomegaly. Musculoskeletal: General: Normal range of motion. Cervical back: Normal range of motion. Skin: General: Skin is warm and dry. Neurological: General: No focal deficit present. Mental Status: She is alert and oriented to person, place, and time. ? Labs: 01/01/24 WBC 5.0, Hgb 12.5, Hct 39, Plt 200, Iron 32 % sat 7 Ferritin 5 Pathology ? Imaging & Other Studies Performance Status? Assessment / Plan: Iron Deficiency Anemia Patient reports 8 months of RIN s/p iron infusion and PRBCS. She is intolerant to oral iron. I havediscussed the differential diagnoses of anemia likely being due to blood loss, nutritional deficiencies, malabsorption, and the possibility of underlying bone marrow disorders. I have discussed trialing multivitamin w/ iron. I will repeat CBC, CMP, iron studies, B12, ferritin, STR, and MMA. Iron infusion ordered by PCP and receiving it . I will also order GI consult for RIN and constipation/diarrhea ADHD Patient is on Adderall Follow up in 4 months VALERIE Ferreira, 01/26/2024 3:44 PM Hematology Oncology Nurse Practitioner [facility] On the day of this visit, I spent 43 minutes providing care to this patient including Preparing to see the patient, Obtaining and/or reviewing separately obtained history, Counseling and educating the patient/family/caregiver, Ordering medications, tests or procedures, Documenting clinical information in the medical record, and Referring and communication with other health field care advocate (notseparately reported) This patient's plan of care has been reviewed and approved by collaborating physician, Dr. Michele Smith. If you have any questions regarding this hematology or oncology evaluation, feel free to contact us for further assistance. Thank you for allowing us to be a part of this patient's care. CC: Roxanna Acosta MD documented in this encounter Plan of Treatment Upcoming Encounters Date Type Department Care Team (Late st Contact Info) Description 08/23/2024 11:15 AM CANDLEMAKER Office Visit [facility] Oncology and Hematology [facility] [address] [place] [address] [place] [phone] [place] [address] [place] [address] [address] [place] [address] Scheduled Orders Name Type Priority Associated Diagnoses Orde r Schedule CBC WITH DIFFERENTIAL Lab Routine Iron deficiency anemia due to chronic blood loss Expected: 01/26/2024, Expires: 01/25/2025 COMPREHENSIVE METABOLIC PANEL Lab Routine Iron deficiency anemia due to chronic blood loss Expected: 01/26/2024, Expires: 01/25/2025 FERRITIN Lab Routine Iron deficiency anemia due to chronic blood loss Expected: 01/26/2024, Expires: 01/25/2025 IRON, TIBC, AND PERCENT SATURATION Lab Routine Iron deficiency anemia due to chronic blood loss Expected: 01/26/2024, Expires: 01/25/2025 TRANSFERRIN RECEPTOR TFR SOLUBLE Lab Routine Iron deficiency anemia due to chronic blood loss Expected: 01/26/2024, Expires: 01/25/2025 METHYLMALONIC ACID Lab Routine Iron deficiency anemia due to chronic blood loss Expected: 01/26/2024, Expires: 01/25/2025 VITAMIN B12 AND FOLATE Lab Routine Iron deficiency anemia due to chronic blood loss Expected: 01/26/2024, Expires: 01/25/2025 LACTATE DEHYDROGENASE Lab Routine Iron deficiency anemia due to chronic blood loss Expected: 01/26/2024, Expires: 01/25/2025 Scheduled Referrals Name Type Priority Associated Diagnoses Order Schedule AMB REFERRAL TO GASTROENTEROLOGY Outpatient Referral Routine Iron deficiency anemia due to chronic blood loss Ordered: 01/26/2024 documented as of this encounter Visit Diagnoses Diagnosis Iron deficiency anemia due to chronic blood loss- Primary Iron deficiency anemia secondary to blood loss (chronic) documented in this encounter Care Teams Forepart Laster Relationship Specialty Start Date End Date Roxanna Acosta MD PCP - General Family Practice 02/19/12 documented as of this encounter
--- OUTSIDE RECORDS SUMMARY | 2024-07-24 09:42 | XMS_ITS | Encounter Summary ---
Author Organization [facility] Address [address] [place] [address] Care Team Providers Care Engineering Patternmaker Name Role Phone Roxanna Acosta MD Primary Care Provider Reason for Referral * Outpatient Services (Routine) - Closed Specialty Diagnoses / Procedures Referred By Contac t Referred To Contact Oncology Diagnoses Iron deficiency anemia, unspecified Procedures INFUSION THERAPY ID IRON SUCROSE INJECTION Venofer Enrique Mckinney MD [address] [address] [facility] 2nd Floor [address] [place] [address] Referral ID Status Reason Start Date Expiration Date Visits Re quested Visits Authorized [id number] Closed 06/14/2023 07/28/2023 3 3 CUTTING MACHINE OPERATOR Encounter Details Date Type Department Care Team (Late st Contact Info) Description 06/14/2023 Orders Only [facility] COMPUTER TYPESETTER - [address] [facility] [address] [place] [address] Enrique Mckinney MD [address] [address] Acute blood loss anemia (Primary Dx) [...] st Contact Info) Description 08/23/2024 11:15 AM DIE CUTTING MACHINE OPERATOR Office Visit [facility] Oncology and Hematology - [place] [address] [facility] 200 [place] [address] Michele Smith MD [address] [facility] [address] [place] [address] documented as of this encounter Visit Diagnoses Diagnosis Acute blood loss anemia- Primary Acute posthemorrhagic anemia documented in this encounter Care Teams Engineering Patternmaker Relationship Specialty Start Date End Date Roxanna Acosta MD PCP - General Family Practice 02/19/12 documented as of this encounter
--- OUTSIDE RECORDS SUMMARY | 2024-07-24 09:42 | XMS_ITS | Encounter Summary ---
Author Organization [facility] Address [address] [facility] Attn: [place] [address] Care Team Providers Care Chicken Dresser Name Role Phone Roxanna Acosta MD Primary Care Provider Encounter Details Date Type Department Care Team (Latest Contact Info) Description 11/10/2020 Travel Social History Tobacco Use Types Packs/Day [...] st Contact Info) Description 08/23/2024 11:15 AM GREY INSPECTOR Office Visit [facility] Oncology and Hematology - [place] [address] [facility] [address] [place] [address] Michele Smith MD [address] [facility] [address] [place] [address] documented as of this encounter Visit Diagnoses Not on filedocumented in this encounter Care Teams Chicken Dresser Relationship Specialty Start Date End Date Roxanna Acosta MD PCP - General Family Practice 02/19/12 documented as of this encounter
--- OUTSIDE RECORDS SUMMARY | 2024-07-24 09:42 | XMS_ITS | Encounter Summary ---
Author Organization [facility] Address [address] [place] [address] Care Team Providers Care Occup Therapist Name Role Phone Roxanna Acosta MD Primary Care Provider Reason for Visit * Reason Onset Date Comments Abnormal Lab Results 02/06/2018 HGSIL Encounter Details Date Type Department Care Team (Late st Contact Info) Description 02/06/2018 Telephone [facility] ROTARY DRIER FEEDER - Medical [address] [address] Enrique Mckinney MD [address] [address] Abnormal Lab Results (HGSIL) Social History Tobacco Use Types Packs/Day Years [...] encounter Miscellaneous Notes * Telephone Encounter - Wero Boles - 02/09/2018 1:19 PM CDT This has been doned by [facility]. Will close this encounter. * Telephone Encounter - Wero Boles - 02/06/2018 12:07 PM CDT Spoke to pt and informed her of the results, and recommendations. Pt has had LEEP before, and does not need explanation. Aware the [facility] will call her next week to schedule. Pt verbalizes an understanding. * Telephone Encounter - Wero Boles - 02/06/2018 12:06 PM CDT ----- Message from Enrique Mckinney MD sent at 02/05/2018 5:09 PM CDT ----- hgsil on pap. Hx of hgsil. Needs repeat LEEP documented in this encounter Plan of Treatment Upcoming Encounters Date Type Department Care Team (Late st Contact Info) Description 08/23/2024 11:15 AM CNC MILLING MACHINIST Office Visit [facility] Oncology and Hematology - [place] 2[address] [facility] [address] [place] [phone] Michele Smith MD [address] [facility] [address] [place] [address] documented as of this encounter Visit Diagnoses Not on filedocumented in this encounter Care Teams Occup Therapist Relationship Specialty Start Date End Date Roxanna Acosta MD PCP - General Family Practice 02/19/12 documented as of this encounter
--- OUTSIDE RECORDS SUMMARY | 2024-07-24 09:42 | XMS_ITS | Encounter Summary ---
Author Organization [facility] Address [address] [place] [address] Care Team Providers Care Right Of Way Cutter Name Role Phone Roxanna Acosta MD Primary Care Provider Reason for Visit * Auth/Cert (Routine) Specialty Diagnoses / Procedures Referred By Sana t Referred To Contact Oncology Enrique Mckinney MD [address] [address] [facility] Infusion Center 2nd Floor [address] [place] [address] Referral ID Status Reason Start Date Expiration Date Visits Re quested Visits Authorized [id number] 1 1 Encounter Details Date Type Department Care Team (Latest Contact Info) Description 07/09/2023 1:00 PM MILKING WORKER - 07/09/2023 11:59 PM [facility] Hospital Encounter [facility] Infusion Center 2nd Fl [address] [place] [address] Enrique Mckinney MD [address] [address] Infusion Chair 5, 2nd Floor [place] Discharge Disposition: Home or [...] Sign Reading Time Taken Comments Blood Pressure 113/89 07/09/2023 1:37 PM MILKING WORKER Pulse 91 07/09/2023 1:37 PM MILKING WORKER Temperature - - Respiratory Rate 16 07/09/2023 1:37 PM MILKING WORKER Oxygen Saturation - - Inhaled Oxygen Concentration [...] as of this encounter Progress Notes * Mirian Venegas RN - 07/09/2023 1:30 PM CST Rosalba Jimenez admitted to [facility] for Venofer. Tolerated infusion without difficulty and monitored for 30 minutes post infusion. Denies any hypersensitivity reactions. Prior to administration, reviewed with patient/family potential side effects and the method of administration. Instruct ed patient/family to notify physician or go to ED if there are any changes in condition, verbalizedunderstanding. Discharged home. ING WORKER documented in this encounter Plan of Treatment Upcoming Encounters Date Type Department Care Team (Late st Contact Info) Description 08/23/2024 11:15 AM MILKING WORKER Office Visit [facility] Oncology and Hematology - [place] [address] [facility] [address] [place] [address] Michele Smith MD [address] [facility] [address] [place] [address] documented as of this encounter Visit Diagnoses Not on filedocumented in this encounter Administered Medications Inactive Administered Medications - up to 3 most recent administrations Medication Order MAR Action Action Date Dose Rate Site iron sucrose (VENOFER) 300 mg in sodium chloride 0.9% 250 mL IVPB 300 mg, IV, ONE TIME ONLY, 1 dose, On Fri07/09/23 at 1330, Routine New Bag 07/09/2023 1:40 PM MILKING WORKER 300 mg 200 mL/hr sodium chloride 0.9% infusion IV, at 0-500 mL/hr, CONTINUOUS, Starting on Fri07/09/23 at 1330, Until Gilda 07/10/23 at 0228, Routine New Bag 07/09/2023 1:38 PM MILKING WORKER 30 mL/ hr documented in this encounter Care Teams Right Of Way Cutter Relationship Specialty Start Date End Date Roxanna Acosta MD PCP - General Family Practice 02/19/12 documented as of this encounter
--- OUTSIDE RECORDS SUMMARY | 2024-07-24 09:42 | XMS_ITS | Encounter Summary ---
Author Organization [facility] Address [address] [place] [address] Care Team Providers Care Construction Driller Name Role Phone Roxanna Acosta MD Primary Care Provider [phone] Encounter Details Date Type Department Care Team (Late Contact Info) Description 01/29/2018 Abstract [facility] DERMATOLOGY [address] [place] [address] Castro Hammer, NORM [address] [place] [address] Social History Tobacco Use Types Packs/Day Years [...] (Late Contact Info) Description 08/23/2024 11:15 AM DIRECTOR PATIENT ACCOUNTING Office Visit [facility] Oncology and Hematology - [address] [place] [address] Michele Smith MD [address] [facility] [address] [place] [address] documented as of this encounter Visit Diagnoses Not on filedocumented in this encounter Care Teams Construction Driller Relationship Specialty Start Date End Date Roxanna Acosta MD PCP - General Family Practice 02/19/12 documented as of this encounter
--- OUTSIDE RECORDS SUMMARY | 2024-07-24 09:42 | XMS_ITS | Encounter Summary ---
Author Organization [facility] Address [address] [place] [address] Care Team Providers Care Blocking Machine Operator Name Role Phone Roxanna Acosta MD Primary Care Provider [phone] Encounter Details Date Type Department Care Team (Late Contact Info) Description 10/09/2023 External Device Data STL ABSTRACTION Provider, Abstract [...] Care Team ([facility] Contact Info) Description 08/23/2024 11:15 AM DEMOGRAPHER Office Visit [facility] Oncology and Hematology - [address] [facility] [address] [place] [address] Michele Smith MD [address] [facility] [address] [place] [address] documented as of this encounter Visit Diagnoses Not on filedocumented in this encounter Care Teams Blocking Machine Operator Relationship Specialty Start Date End Date Roxanna Acosta MD PCP - General Family Practice 02/19/12 documented as of this encounter
--- OUTSIDE RECORDS SUMMARY | 2024-07-24 09:42 | XMS_ITS | Encounter Summary ---
Author Organization [facility] Address [address] [place] [address] Care Team Providers Care Director Of Education Name Role Phone Roxanna Acosta MD Primary Care Provider Encounter Details Date Type Department Care Team (Late Contact Info) Description 01/13/2024 External Device Data STL ABSTRACTION Provider, Abstract [...] Upcoming Encounters Date Type Department Care Team ([facility] Contact Info) Description 08/23/2024 11:15 AM RUBY ON RAILS ENGINEER Office Visit [facility] Oncology and Hematology - [address] [facility] [address] [place] [address] Michele Smith MD [address] [facility] [address] [place] [address] documented as of this encounter Visit Diagnoses Not on filedocumented in this encounter Care Teams Director Of Education Relationship Specialty Start Date End Date Roxanna Acosta MD PCP - General Family Practice 02/19/12 documented as of this encounter
--- OUTSIDE RECORDS SUMMARY | 2024-07-24 09:42 | XMS_ITS | Encounter Summary ---
Author Organization [facility] Address [address] [place] [address] Care Team Providers Care Managed Care Manager Name Role Phone Roxanna Acosta MD [...] Encounters Date Type Department Care Team ([facility] Contact Info) Description 08/23/2024 11:15 AM STITCHER OPERATOR Office Visit [facility] Oncology and Hematology - [address] [facility] [address] [place] [address] Michele Smith MD [address] [facility] [address] [place] [address] documented as of this encounter Visit Diagnoses Not on filedocumented in this encounter Care Teams Managed Care Manager Relationship Specialty Start Date End Date Roxanna Acosta MD PCP - General Family Practice 02/19/12 documented as of this encounter
--- OUTSIDE RECORDS SUMMARY | 2024-07-24 09:42 | XMS_ITS | Encounter Summary ---
Author Organization [facility] Address [address] [place] [address] Care Team Providers Care Photonics Technician Name Role Phone Roxanna Acosta MD Primary Care Provider Encounter Details Date Type Department Care Team (Late Contact Info) Description 02/02/2024 Orders Only [facility] Oncology and Hematology - [address] [facility] [address] [place] [address] Raissa Diaz, NIKITA [address] [facility] [address] [place] [address] Social History Tobacco Use Types Packs/Day Years [...] st Contact Info) Description 08/23/2024 11:15 AM PROFESSIONAL WRESTLER Office Visit [facility] Oncology and Hematology - [address] [facility] [address] [place] [address] Michele Smith MD [address] [facility] [address] [place] [address] documented as of this encounter Procedures Procedure Name Priority Date/Time Associated Diagnosis Comments METHYLMALONIC ACID Routine 01/26/2024 10:04 AM CDT documented in this encounter Results * METHYLMALONIC ACID (01/26/2024 10:04 AM CDT) Blood Raissa Diaz DIRECTOR OF ENGINEERING CHEMISTRY ORDERABLES documented in this encounter Visit Diagnoses Not on filedocumented in this encounter Care Teams Photonics Technician Relationship Specialty Start Date End Date Roxanna Acosta MD PCP - General Family Practice 02/19/12 documented as of this encounter
--- OUTSIDE RECORDS SUMMARY | 2024-07-24 09:42 | XMS_ITS | Encounter Summary ---
Author Organization [facility] Address [address] [place] [address] Care Team Providers Care Ornamental Metal Erector Apprentice Name Role Phone Roxanna Acosta MD [...] Upcoming Encounters Date Type Department Care Team ([facility] Contact Info) Description 08/23/2024 11:15 AM MANAGER INTRANET Office Visit [facility] Oncology and Hematology - [address] [facility] [address] [place] [address] Michele Smith MD [address] [facility] [address] [place] [address] documented as of this encounter Visit Diagnoses Not on filedocumented in this encounter Care Teams Ornamental Metal Erector Apprentice Relationship Specialty Start Date End Date Roxanna Acosta MD PCP - General Family Practice 02/19/12 documented as of this encounter
--- OUTSIDE RECORDS SUMMARY | 2024-07-24 09:42 | XMS_ITS | Encounter Summary ---
Author Organization [facility] Address [address] [place] [address] Care Team Providers Care Portable Track Line Marker Name Role Phone Roxanna Acosta MD Primary Care Provider [phone] Reason for Visit * Reason Comments Vaginal Bleeding Pt reports having bl eeding that has been going on for a few months but started getting heavier over the last several weeks. Pt then started having SOB and dizziness. Pt had endometrial biopsy and bloodwork done on 06/12. Pt was called today and instructed to come in for blood transfusion, Hgb 6.2. * Auth/Cert (Routine) Specialty Diagnoses / Procedures Referred By Sana jarquin Referred To Contact Emergency Medicine [facility] Emergency Dept [address] [place] [address] Referral ID Status Reason Start Date Expiration Date Visits Re quested Visits Authorized [id number] 1 1 Encounter Details Date Type Department Care Team (Latest Contact Info) Description 06/16/2023 3:48 PM PROFESSIONAL NURSING ASSISTANT - 06/17/2023 1:20 PM PROFESSIONAL NURSING ASSISTANT Hospital Encounter [facility] [address] [place] [address] Autumn Rios MD [address] [place] [address] Byron Goetz MD [address] [facility] [place] [address] Enrique Mckinney MD [address] [address] Menorrhagia with irregular cycle Discharge Disposition: Home or Self Care Social [...] Sign Reading Time Taken Comments Blood Pressure 104/55 06/17/2023 12:01 PM PROFESSIONAL NURSING ASSISTANT Pulse 78 06/17/2023 12:01 PM PROFESSIONAL NURSING ASSISTANT Temperature 37.2 ??C (98.9 ??F) 06/17/2023 12:[address] Respiratory Rate 20 06/17/2023 12:01 PM PROFESSIONAL NURSING ASSISTANT Oxygen Saturation 100% 06/17/2023 12:01 PM PROFESSIONAL NURSING ASSISTANT Inhaled Oxygen Concentration - - Weight 59 kg (130 lb) 06/16/2023 3:34 PM PROFESSIONAL NURSING ASSISTANT Height 157.5 cm (5' 2 ) 06/16/2023 3:34 PM PROFESSIONAL NURSING ASSISTANT Body Mass Index 23.78 06/16/2023 3:34 PM PROFESSIONAL NURSING ASSISTANT documented in this encounter Discharge Summaries * Enrique Mckinney MD - 06/17/2023 11:46 AM CST Discharge Summary Patient: Rosalba Jimenez / 43 y.o. / female : 1980 Admit date: 06/16/2023 Discharge date: 06/17/2023 Attending Physician: Enrique Mckinney MD Principal and Secondary Diagnoses 1. Acute blood loss anemia Principal and Secondary Procedures 1. Blood transfusion of 2 units PRBC's, Venofer infusion x 1 2. Hospital care Pertinent History & Physical See H&P. Hospital Course See H&P for admission indications & procedure. The patient did well. Her anemia symptoms improved dramatically. She voided spontaneously. Her diet was as tolerated. She ambulated without difficulty. She was discharged home in stable condition on hospital day #2. Discharge Labs Lab Results Component Value Date ABORH O Positive 04/21/2009 ABOGROUP O 06/16/2023 Immunization History Administered Date(s) Administered INFLUENZA VACCINE QUADRIVALENT 6 MOS UP PF IM 06/17/2023 Discharge Condition: stable. Disposition She is discharged to home. See discharge instructions. She'll follow up in the office as indicated. Discharge Medications Medication List CONTINUE taking these medications amphetamine-dextroamphetamine 20 mg Extended Release 24 hour capsule Commonly known as: ADDERALL XR Take 20 mg by mouth. Refills: 0 ibuprofen 600 mg tablet Commonly known as: MOTRIN Take 1 Tablet (600 mg) by mouth every 6 hours as needed for Pain, Mild. Signed by: Dr. Enrique Mckinney MD Quantity: 20 Tablet Refills: 0 tranexamic acid 650 mg Tablet tablet Commonly known as: LYSTEDA Take 2 Tablets (1,300 mg) by mouth 3 times daily. Signed by: Dr. Enrique Mckinney MD Quantity: 30 Tablet Refills: 3 ESSIONAL NURSING ASSISTANT documented in this encounter Medications at Time [...] as of this encounter Progress Notes * Radha Mora RN - 06/17/2023 1:22 PM CST Patient discharged with instructions. No prescriptions given. ESSIONAL NURSING ASSISTANT * Enrique Mckinney MD - 06/17/2023 11:45 AM CST Hgb 9.2 Stable for discharge. ESSIONAL NURSING ASSISTANT * Enrique Mckinney MD - 06/17/2023 7:56 AM CST [facility] Rounding Note Subjective: Patient doing well this morning, feels much improved following 2 units of blood. Also received 1 dose of venofer. No complaints or acute events overnight. Objective: Vitals: 06/17/23 0157 06/17/23 0222 06/17/23 0241 06/17/23 0513 BP: (!) 92/53 (!) 91/48 (!) 93/55 108/58 BP Location: Right arm Right arm Right arm Right arm Patient Position (BP): Sitting Sitting Sitting Sitting Pulse: 73 75 67 71 Resp: 16 16 14 16 Temp: 97.9 ??F (36.6 ??C) 97.1 ??F (36.2 ??C) 97.9 ??F (36.6 ??C) 97.6 ??F (36.4 ??C) TempSrc: Oral Oral Oral Oral SpO2: 100% 100% 100% 100% Weight: Height: Gen: NAD, resting comfortably HEENT: NCAT Abd: Soft, nontender, nondistended Ext: No calf tenderness Labs: Recent Labs 06/16/23 1603 WBC 7.4 HGB 6.2* HCT 23.4* PLT 352* NA 135* K 3.5 CL 100 CO2 24 BUN 9 CREAT 0.59 GLUCOSE 100* ALT 9 AST 14 Post-transfusion CBC scheduled for 9 am Assessment/Plan: 43 y.o. female with the following: Abnormal uterine bleeding RIN - Patient initially presenting with lightheadedness and SOB in a setting of known anemia secondary to heavy vaginal bleeding and thickened endometrial lining - VSS - Ddx includes fibroids, polyp, hyperplasia, malignancy, adenomyosis - Hgb 6.2 > 2 u pRBC - s/p 1x venofer - EMB pathology from 06/12/2023 still pending - Currently taking Lysteda 1300mg TID with significant improvement in VB, continue inpatient - Pending EMB results could potentially consider hysteroscopy D&C in the future, plan for scheduling outpatient follow up with Dr. Mckinney Pending CBC results, anticipate DC later today Pain control: tyl Diet: Gen Georgiana Otoole MD BRINE PROCESS OPERATOR PGY-1 Pager: [phone] Pt seen and examined. Agree with plan and disposition. Await labs. Home later. Instructions given. ESSIONAL NURSING ASSISTANT * Chris Wen RN - 06/16/2023 8:50 PM CST UNDRESS and ASSESS for ALL ADMISSIONS and TRANSFERS On Admission On Transfer When off unit for greater than 2 hours Remove all existing dressings and devices and assess ENTIRE SKIN SURFACE (unless instructed by provider). upon transfer to Location(unit/floor)[facility] Jayden Score: 1 Undress and Assess performed by bedside coworker Chris Wen, RN and bedside coworker Katherine Milton RN 2 Does the patient have any skin breakdown? No Add an LDA for any wound for non-blanching pink/red or purple areas. Assess all high risk areas: heels, ankles, knees, hips, sacrum, coccyx, ischium, gluteal, occiput, spine and all skin folds Consult wound care services for all new pressure-related injuries If yes, location(s) and description of breakdown: N/A Photograph wound, if applicable. 3 Is a specialty support surface in place? No If yes, which one?: N/A (examples: Low air loss air mattress, Roho, etc...) Patients with impaired mobility, bariatric, malnourished, existing pressure injury, are high considerations for specialty support surface. 4 Is the patient a paraplegic/quadriplegic? No If yes AND if stable spine immediately place on specialty surface and consult wound care services. If unstable spine or new spinal injury, defer to provider before specialty surface use. 5 Is a director biomedical engineering present? no If yes, which one?: N/A Remove device/brace/splint to check skin underneath, obtain provider order if necessary. 6 Does the patient have a wound VAC (negative pressure wound therapy)? No If yes, please consult wound care services and switch VAC device to hospital VAC, if compatible. 7 Does the patient have an ostomy? No If yes, please consult wound care/ostomy services. (Add comment to consult if ostomy is problematic for patient.) 9 Was the Skin Prevention/ Pressure Injury Pathway initiated and appropriate interventions selected? No Use for prevention of skin issues due to friction, shear, pressure, mobility or moisture issues. 10 Was the Skin Care Treatment: Pressure Injury/Lower Extremity Ulcer Pathway initiated, and appropriate interventions selected? No Use for conditions such as: existing pressure injuries, yeast, deeptissue injury, incontinence associated dermatitis, lower extremity ulcers, and skin tears. 11 Wound care consult/ostomy care consult was not initiated. Belongings: RACHELLE Skin Care Injury Prevention and Treatment Protocol [facility] Approved by: [facility] - Medical Executive Committee Approval Date: 07/18/2022 ORDERS ARE ENTERED ???PER PROTOCOL?? Enter the protocol in the patient???s electronic health record using smartphrase: .woundcarepathwayprotocol or through initiating the smartphrase .UNDRESSASSESSSTL [[id number]] Nursing Orders: When a patient age 18 years or older has: a documented Jayden score of 18 or less or a Jayden sub score of 2 or 1, or a documented condition on the problem list of: diabetes, malnutrition or cachectic, paralysis, spinal cord disorder/injuries or muscle/neurological disease, THEN, the RN will order the Skin Care/Pressure Injury Prevention Pathway and initiate all appropriate interventions as per the Jayden Risk Assessment Algorithm. When a patient age 18 years or older has a wound requiring treatment, the RN and Wound Care Nurses may order the Skin Care/Pressure Ulcer/Lower Extremity Ulcer Treatment Pathway and use appropriate treatments found in the Nursing Algorithm. The Wound Care Nurse may also order treatments found in the Wound Care Algorithm. ESSIONAL NURSING ASSISTANT documented in this encounter H&P Notes * Camilla Ferreira MD - 06/16/2023 7:26 PM CST [facility] History & Physical CC: heavy vaginal bleeding and back/abdominal cramping Subjective: Rosalba Jimenez is a 43 y.o. female who presents to the ED complaining of heavy vaginal bleeding that started 3 months ago. States that previously her periods were regular, but over the last few months the bleeding has increased. Has only gone 3-7 days without bleeding before it starts again. Changing a pad every 1-2 hours. Was seen in the clinic 4 days ago, and was started on Lysteda, which she states has helped the bleeding significantly. Hemoglobin was low at that time. Since then, she has been feeling more lightheaded, nauseous, SOB and palpitations. She denies fevers, chills, abdominal pain, vomiting, chest pain, dysuria, hematuria, urinary urgency or frequency, constipation or diarrhea. Per chart review: Her primary Personal Health Coach is Faye. Patient evaluated in clinic on 06/12/2023 for increased vaginal bleeding over the last 3 months. EMB completed at that time (results still pending).Lysteda 1300mg TID prescribed. Hemoglobin 6.2, iron 11, TIBC 529, iron % saturation 2 and ferritin 1 at that time. Recommended to come in for an iron transfusion, this was not completed. ROS: As above. OB Hx: OB History Para Term AB Living 6 4 4 2 4 SAB IAB Ectopic Multiple Live Births 2 1 # [...] None 1 Term 11/2004 F Vag-Spont None [facility] Hx: - Menarche: 15 y.o. - Menstrual cycle: every 5 weeks with heavy flow, - Denies hx of STDs - Contraception: none currently - Menopause: denies menopausal symptoms, unsure on family history of when menopause occurred PMHx: Past Medical History: Diagnosis Date Patient denies relevant medical history PSHx: Past Surgical History: Procedure Laterality Date HX TONSILLECTOMY IN CONIZATION CERVIX W/WO D&C RPR ELTRD EXC N/A 09/23/2017 LOCAL CERVICAL CONE LEEP performed by Enrique Mckinney MD at [facility] OR [facility] IN CONIZATION CERVIX W/WO D&C RPR ELTRD EXC N/A 03/24/2018 LOCAL CERVICAL CONE LEEP performed by Enrique Mckinney MD at [facility] OR [facility] TONSILLECTOMY FHx: Negative for blood clots or bleeding disorders. Negative for breast, colon, or ovarian cancer. SHx: Denies tobacco, alcohol, or illicit drug use. Medications: No current facility-administered medications on file prior to encounter. Current Outpatient Medications on File Prior to Encounter Medication Sig Dispense Refill tranexamic acid (LYSTEDA) [...] Mild. 20 Tablet 0 Allergies Allergen Reactions No Known Allergies Objective: Vitals: 06/16/23 1534 06/16/23 1747 BP: 117/75 108/67 BP Location: Right arm Right arm Patient Position (BP): Sitting Sitting Pulse: 82 81 Resp: 18 18 Temp: 97.4 ??F (36.3 ??C) 98.6 ??F (37 ??C) TempSrc: Oral Oral SpO2: 100% 100% Weight: 59 kg (130 lb) Height: 5' 2 (1.575 m) Physical Exam: General: well-developed, well-nourished female in NAD HEENT: normocephalic, atraumatic, moist mucus membranes Heart: acyanotic Lungs: non labored breathing Abdomen: soft, nontender to palpation, no rebound or guarding, no masses Extremities: no clubbing, cyanosis, edema, or calf tenderness. Back: no CVA tenderness : External genitalia appear normal. Vaginal vault with small amount (~5cc) dark blood present, nolarge clots. Cervix appears normal, small amount of dark red blood within the cervical os. No active bleeding present. Labs: CBC: - WBC 7.4 - Hgb 6.2 - Hct 23.4 - Plt 352 CMP: - Na 135 - K 3.5 - Ca 9.3 - Cr 0.59 - AST/ALT 14/9 POC hCG: negative Imaging: US Pelvic Transvaginal 06/12/2023: Uterus is anteverted and measures 79 x 45 x 55 mm. Myometrium appears homogeneous. Appears irregularly thickened. The endometrium measures 13.1 mm. Right Ovary appears normal in size, shape, structure and morphology. Left Ovary Enlarged (>= 10 mL). It contains a 22.1 mm simple cyst. Posterior cul de sac: No free fluid is seen Assessment/Plan: 43 y.o. female with the following: Abnormal uterine bleeding Abdominal/back cramping RIN - Lightheadedness and SOB in a setting of known anemia secondary to heavy vaginal bleeding and thickened endometrial lining - VSS, not tachycardic or hypotensive - PE with small amount of dark red blood present, without signs of active bleeding - Ddx includes fibroids, polyp, hyperplasia, malignancy, adenomyosis - Continues to remain anemic, hgb 6.2, which is stable from 4 days ago - Previous iron studies indicative of RIN - EMB pathology from 06/12/2023 still pending - Admission for further management - Currently taking Lysteda 1300mg TID, continue inpatient - 2U PRBC ordered per ED - Repeat CBC post-transfusion - Will consider iron transfusion inpatient post blood transfusion - Given Lysteda has improved bleeding, no indication at this time for urgent intervention - Pending EMB results could potentially consider hysteroscopy D&C in the future, plan for scheduling outpatient follow up with Dr. Mckinney Pain control: tyl & ibuprofen PRN Diet: General DVT ppx: SCDs, ambulate Discussed with Dr. Gallegos who is in agreement. Camilla Ferreira MD BRINE PROCESS OPERATOR PGY-1 Pager: [phone] ESSIONAL NURSING ASSISTANT documented in this encounter ED Notes * Olinda Gallegos RN - 06/16/2023 7:54 PM CST Chief Complaint Patient presents with Vaginal Bleeding Pt reports having bleeding that has been going on for a few months but started getting heavier overthe last several weeks. Pt then started having SOB and dizziness. Pt had endometrial biopsy and bloodwork done on 06/12. Pt was called today and instructed to come in for blood transfusion, Hgb 6.2. This RN agrees with this triage note. Pt placed on continuous cardiac monitoring, NIBP, and pulse ox. Pt denies any further needs at thistime. Pt is A&Ox4 and does not appear to be in acute distress. Call light within reach. Will continue to assess. ESSIONAL NURSING ASSISTANT * Olinda Gallegos RN - 06/16/2023 7:41 PM CST Pt educated on the risks and benefits of a blood transfusion. Informed consent obtained at this time ESSIONAL NURSING ASSISTANT * Autumn Rios MD - 06/16/2023 3:49 PM CST PHYSICIAN IN TRIAGE NOTE: The patient was seen in my role as a physician in triage. In short, the patient presented with anemia and in need of blood transfusion. Patient has had heavy vaginal bleeding and now with Hb 6.2. Sent in by [facility] for transfusion. Limited exam in triage shows pale, slightly short of breath. Plan- CBC, CMP and type and screen ordered. The patient will be moved to ED when a room is available. Autumn Rios MD ESSIONAL NURSING ASSISTANT * yBron Goetz MD - 06/16/2023 3:23 PM CST HISTORY OF PRESENT ILLNESS Rosalba Jimenez, a 43 y.o. female presents to the ED with a Chief Complaint of Vaginal Bleeding Subjective 43 y/o female hx of BENITO who presents to the ED with vaginal bleeding over the last few months that has increased in severity over the last few days with associated SOB and dizziness. The patent was seen by Dr. Mckinney (BRINE PROCESS OPERATOR) who did an endometrial biopsy on 06/12. The followingday (06/13) the patient received a call informing her the results showed an Hgb 6.2. The patient was advised to present to the ED for a blood transfusion at this time. However, the patient stated they waited to present to the ED today because of the weekend. Here in the ED the patient states her vaginal bleeding has improved from last week but she still changes her pad every 4 to 5 hours. Patient is experiencing nausea with movement, dizziness, and shortness of breath. She has pain in her back and hips at night. Patient denies any fever or abdominal pain. The patient has no other acute concerns at this time and she denies any new or recent medicationchanges. Physician(s): Roxanna Acosta MD History provided by: The patient, medical records and the spouse () Arrived by: Private vehicle Arrived from: Home REVIEW OF SYSTEMS Review of Systems Constitutional: Negative for chills, fatigue and fever. HENT: Negative for congestion and sore throat. Eyes: Negative for pain. Respiratory: Positive for shortness of breath. Negative for cough and stridor. Cardiovascular: Negative for chest pain. Gastrointestinal: Positive for nausea. Negative for abdominal pain, diarrhea and vomiting. Genitourinary: Positive for vaginal bleeding. Negative for dysuria. Musculoskeletal: Positive for arthralgias and back pain. Negative for joint swelling and neck pain. Pain in hips Skin: Negative for rash and wound. Neurological: Positive for light-headedness. Negative for dizziness, syncope, weakness and headaches. Psychiatric/Behavioral: Negative for behavioral problems, confusion and suicidal ideas. PAST MEDICAL HISTORY REVIEWED MEDICAL: Patient has a past medical history of Patient denies relevant medical history. She has no past medical history of History of complications due to general anesthesia, Latex sensitivity, MRSA (methicillin resistant Staphylococcus aureus), Obstructive sleep apnea, or Post-operative nausea and vomiting. SURGICAL: Patient has a past surgical history that includes tonsillectomy; tonsillectomy; pr conization cervix w/wo d&c rpr eltrd exc (N/A, 09/23/2017); and pr conization cervix w/wo d&c rpr eltrd exc (N/A, 03/24/2018). FAMILY: Patient's family history includes Cancer in her mother; Healthy in her father and mother. SOCIAL: reports that she has never smoked. She has never used smokeless tobacco. She reports current alcohol use. She reports being sexually active and has had partner(s) who are male. She reports using the following method of control/protection: None. She reports that she does not use drugs. History Feeding: Breast Fed Social History Other Topics Concern Not on file ALLERGIES No known allergies HOME MEDICATIONS Patient's Home Medications Current Home Medications AMPHETAMINE-DEXTROAMPHETAMINE (ADDERALL XR) 20 MG EXTENDED RELEASE 24 HOUR CAPSULE IBUPROFEN (MOTRIN) 600 MG TABLET TRANEXAMIC ACID (LYSTEDA) 650 MG TABLET TABLET Medications Modified during this Encounter No medications on file Medications Discontinued during this Encounter No medications on file Objective PHYSICAL EXAM INITIAL VS BP: 117/75 (06/16/23 153), Heart Rate: 82 bpm (06/16/231533), Resp: 18 (06/16/231533), Pulse: 82(06/16/231533), Temp: 97.4 ??F (36.3 ??C) (06/16/231533), Temp src: Oral (06/16/231533), SpO2: 100 % (06/16/231533), Height: 5' 2 (157.5 cm) (06/16/231533), Weight: 59 kg (130 lb) (06/16/231533), BMI (Calculated): 23.77 (06/16/231533) Patient's last menstrual period was 03/24/2023 (approximate). Physical Exam Vitals and nursing note reviewed. HENT: Head: Normocephalic and atraumatic. Eyes: Conjunctiva/sclera: Conjunctivae normal. Pupils: Pupils are equal, round, and reactive to light. Cardiovascular: Rate and Rhythm: Normal rate and regular rhythm. Heart sounds: Normal heart sounds. Pulmonary: Effort: Pulmonary effort is normal. Breath sounds: Normal breath sounds. Abdominal: General: Bowel sounds are normal. There is no distension. Palpations: Abdomen is soft. Tenderness: There is no abdominal tenderness. Musculoskeletal: General: Normal range of motion. Cervical back: Normal range of motion and neck supple. Skin: General: Skin is warm and dry. Findings: No erythema. Neurological: Mental Status: She is alert and oriented to person, place, and time. GCS: GCS eye subscore is 4. GCS verbal subscore is 5. GCS motor subscore is 6. Cranial Nerves: Cranial nerves 2-12 are intact. Sensory: Sensation is intact. Motor: Motor function is intact. Coordination: Coordination is intact. Gait: Gait is intact. Psychiatric: Behavior: Behavior normal. DIAGNOSTICS LAB: CBC WITH DIFFERENTIAL - Abnormal Result Value WBC 7.4 RBC 3.83 (*) HEMOGLOBIN 6.2 (*) HEMATOCRIT 23.4 (*) MCV 61.1 (*) MCH 16.2 (*) MCHC <27.0 (*) RDW 21.9 (*) RDW-STDEV 44.3 PLATELETS 352 (*) MPV 10.4 NEUTROPHILS 76 LYMPHOCYTES 18 MONOCYTES 5 EOSINOPHILS 0 BASOPHILS 1 IMMATURE GRANULOCYTES 0 NEUTROPHIL ABSOLUTE 5.64 LYMPHOCYTE ABSOLUTE 1.29 MONOCYTE ABSOLUTE 0.36 EOSINOPHIL ABSOLUTE 0.01 BASOPHILS ABSOLUTE 0.05 IMMATURE GRANULOCYTES ABSOLUTE 0.03 COMPREHENSIVE METABOLIC PANEL - Abnormal SODIUM 135 (*) POTASSIUM 3.5 CHLORIDE 100 CO2 24 CALCIUM 9.3 BUN 9 CREATININE 0.59 GLUCOSE 100 (*) TOTAL PROTEIN 7.2 ALBUMIN 4.9 BILIRUBIN TOTAL 0.3 ALKALINE PHOSPHATASE 57 AST 14 ALT 9 GFR >60 ANION GAP 11 POC , URINE - Normal HCG QUAL URINE Negative MANUAL DIFFERENTIAL PLATELET EST. Consistent w Count ANISOCYTOSIS 2+ POIKILOCYTES 1+ MICROCYTES 2+ HYPOCHROMIA 2+ TARGET CELLS 1+ OVALOCYTES 1+ EXTRA TUBE EXTRA TUBE (URINE CONTAINER) POC , URINE TYPE AND SCREEN ABO GROUP O RH (D) TYPE Positive ANTIBODY SCREEN Negative VERIFICATION BLOOD GROUP PREPARE RED BLOOD CELLS RADIOLOGY: No orders to display PROCEDURES Procedures MEDICAL DECISION MAKING AND PLAN OF CARE --On initial evaluation, saw and examined the patient. Discussed plan for consulting BRINE PROCESS OPERATOR. Patient understands and agrees with the plan. 7:12 PM: Discussed with Dr. Gallegos for Dr. Mckinney (BRINE PROCESS OPERATOR), advised to give the patient a blood transfusion. 7:24 PM: Discussed with the BRINE PROCESS OPERATOR resident, they will come see the patient here in the ED. ED provider and ED nurse verbally discussed patient plan of care at this time. Medical Decision Making Summary: 43 y/o female presents to the ED with ongoing vaginal bleeding for the last several monthsthat has increased in severity over the last few days. The patient was found to be anemic with a hemoglobin of 6. The patient will be admitted for a blood transfusion. Differential diagnosis includes, but is not limited to, anemia, dysfunction uterine bleeding, , or dehydration. By virtue of history and physical, some of these diagnoses can be excluded. Imaging was interpreted by me and notable for n/a. Non-ED notes reviewed: reviewed prior records Additional information obtained from independent historian, Spouse, present at bedside. The following social determinants of health potentially complicated the patient's course and were considered in my plan of care: None Amount and/or Complexity of Data Reviewed Independent Historian: spouse Details: External Data Reviewed: notes. Labs: ordered. Decision-making details documented in ED Course. Risk Decision regarding hospitalization. MDM Consults: BRINE PROCESS OPERATOR . New Prescriptions for this Encounter LAST VS BP: 108/67 (06/16/231746), Heart Rate: 81 bpm (06/16/231746), Resp: 18 (06/16/231746), Pulse: 81(06/16/231746), Temp: 98.6 ??F (37 ??C) (06/16/231746), Temp src: Oral (06/16/231746), SpO2: 100% (06/16/231746) CLINICAL IMPRESSION Final diagnoses: [D62] Acute blood loss anemia [N93.8] DUB (dysfunctional uterine bleeding) DISPOSITION, EDUCATION AND MEDICATION RECONCILIATION Medications reconciled. See after visit summary for patient education on discharged patients. ED Disposition ED Disposition Admit Condition Stable User Byron Goetz MD Date/Time FriJun 16, 2023 7:16 PM Comment -- ATTESTATION STATEMENTS This note has been prepared by Steve Mcleod and Alma Cintron acting as a scribe for Dr. Byron Goetz on 06/16/2023 at 7:27 PM. The scribe's documentation has been prepared under my direction and personally reviewed by me, Dr. Byron Goetz, in its entirety on 06/16/23 at 7:44 PM. I confirm that the note above accurately reflects all work, treatment, procedures, and medical decision making performed by me. ESSIONAL NURSING ASSISTANT documented in this encounter Miscellaneous Notes * Care Plan - Halle Chery LMSW - 06/17/2023 8:43 AM CST Clinical documentation reviewed. Comprehensive Discharge Planning Risk Assessment was completed. Documentation Related to CDPA score CDPA Documentation Ambulation: independent Transferring: independent Toileting: independent Bathing: independent Dressing: independent Eating: independent Communication: understands/communicates w/o difficulty Weight-Bearing Status: no weight-bearing restrictions Living Arrangements: Lives with spouse/significant other Total Score of 9 or below does not identify immediate needs for discharge. CDPA Risk Score Total Score: 0 Criteria that do not apply: Self-reported walking limitation Disability Age Prior Living Status Please place consult if needs for discharge are identified. Care Management will continue to follow for discharge planning. ALFREDO Posey, CONSULTING SOLUTION MANAGER Inpatient Financial Aid Manager [facility] [phone] Problem: Discharge Planning Goal: Identify discharge needs upon admission and through discharge Description: Outcome: Progressing ESSIONAL NURSING ASSISTANT * Care Plan - Chris Wen RN - 06/17/2023 5:06 AM CST Patient tolerating a regular diet. Patient denied pain throughout the duration of the shift. Patient voiding spontaneously. Independent. Ambulating. Patient rested quietly in between care. Denies concerns and has no further questions. Personal belongings and call light are within reach. ESSIONAL NURSING ASSISTANT documented in this encounter Plan of Treatment Upcoming Encounters Date Type Department Care Team (Late st Contact Info) Description 08/23/2024 11:15 AM PROFESSIONAL NURSING ASSISTANT Office Visit [facility] Oncology and Hematology - [place] [address] [place] [address] Michele Smith MD [address] [facility] [address] [place] [address] documented as of this encounter Procedures Procedure Name Priority Date/Time Associated Diagnosis Comments DIFFERENTIAL, MANUAL Timed Study 06/17/2023 10:59 AM PROFESSIONAL NURSING ASSISTANT CBC WITH DIFFERENTIAL Timed Study 06/17/2023 10:59 AM PROFESSIONAL NURSING ASSISTANT TRANSFUSE PACKED RED BLOOD CELLS Routine 06/17/2023 2:23 AM PROFESSIONAL NURSING ASSISTANT PREPARE RED BLOOD CELLS Routine 06/16/2023 11:47 PM PROFESSIONAL NURSING ASSISTANT TRANSFUSE PACKED RED BLOOD CELLS Routine 06/16/2023 10:55 PM PROFESSIONAL NURSING ASSISTANT VERIFICATION BLOOD GROUP Stat 06/16/2023 7:05 PM PROFESSIONAL NURSING ASSISTANT Encounter for blood typing PREPARE RED BLOOD CELLS Stat 06/16/2023 7:01 PM PROFESSIONAL NURSING ASSISTANT POC , URINE Stat 06/16/2023 5:47 PM PROFESSIONAL NURSING ASSISTANT EXTRA TUBE Stat 06/16/2023 5:42 PM PROFESSIONAL NURSING ASSISTANT EXTRA TUBE (URINE CONTAINER) Stat 06/16/2023 5:42 PM PROFESSIONAL NURSING ASSISTANT DIFFERENTIAL, MANUAL Stat 06/16/2023 4:03 PM PROFESSIONAL NURSING ASSISTANT CBC WITH DIFFERENTIAL Stat 06/16/2023 4:03 PM PROFESSIONAL NURSING ASSISTANT TYPE AND SCREEN Stat 06/16/2023 4:03 PM PROFESSIONAL NURSING ASSISTANT COMPREHENSIVE METABOLIC PANEL Stat 06/16/2023 4:03 PM PROFESSIONAL NURSING ASSISTANT documented in this encounter Results * MANUAL DIFFERENTIAL (06/17/2023 10:59 AM PROFESSIONAL NURSING ASSISTANT) PLATELET EST. Consistent w Count 06/17/2023 12:04 PM PROFESSIONAL NURSING ASSISTANT [facility] ANISOCYTOSIS 1+ /hpf 06/17/2023 12:04 PM PROFESSIONAL NURSING ASSISTANT [facility] POIKILOCYTES 1+ /hpf 06/17/2023 12:04 PM PROFESSIONAL NURSING ASSISTANT [facility] MICROCYTES 1+ /hpf 06/17/2023 12:04 PM PROFESSIONAL NURSING ASSISTANT [facility] POLYCHROMASIA 1+ /hpf 06/17/2023 12:04 PM PROFESSIONAL NURSING ASSISTANT [facility] HYPOCHROMIA 1+ /hpf 06/17/2023 12:04 PM [facility] SCHISTOCYTES 1+ /hpf 06/17/2023 12:04 PM [facility] ACANTHOCYTES 1+ /hpf 06/17/2023 12:04 PM [facility] Blood Venipuncture / Unknown 06/17/2023 10:59 AM PROFESSIONAL NURSING ASSISTANT 06/17/2023 11:02 AM PROFESSIONAL NURSING ASSISTANT Enrique Mckinney MD HEMATOLOGY ORDERABLE S COM [facility] [employer] SERVICES - [facility] CLIA# [id number] [address] [facility] [place] [address] * (ABNORMAL) CBC WITH DIFFERENTIAL (06/17/2023 10:59 AM PROFESSIONAL NURSING ASSISTANT) WBC 5.8 4.0 - 9.8 K/uL 06/17/2023 11:28 AM [facility] [employer] SERVICES - . [facility] RBC 4.75 3.90 - 4.90 M/uL 06/17/2023 11:28 AM [facility] [employer] [facility]. [facility] HEMOGLOBIN 9.2(L) 11.8 - 14.8 g/dL 06/17/2023 11:28 AM [facility] - [facility] [place] Comment:Significant change f rom prior result, correlate clinically and redraw if necessary. HEMATOCRIT 32.3(L) 35.5 - 44.0 % 06/17/2023 11:28 AM [facility] [employer] LABORATORY SERVICES [facility]. [facility] MCV 68.0(L) 82.0 - 99.0 fL 06/17/2023 11:28 AM PROFESSIONAL NURSING ASSISTANT [employer] LABORATORY SERVICES [facility]. [facility] MCH 19.4(L) 27.2 - 32.6 pg 06/17/2023 11:28 AM [facility] [employer] SERVICES [facility]. [facility] MCHC 28.5(L) 31.5 - 35.5 g/dL 06/17/2023 11:28 AM [facility] [employer] SERVICES [facility]. [facility] RDW 25.2(H) 11.5 - 14.5 % 06/17/2023 11:28 AM [employer] [facility] RDW-STDEV 59.2(H) 37.1 - 48.7 fL 06/17/2023 11:28 AM [facility] [employer] LAB[facility]ATORY [facility] PLATELETS 314 140 - 350 K/uL 06/17/2023 11:28 AM [employer] [facility] MPV 10.1 9.3 - 12.4 fL 06/17/2023 11:28 AM [employer] [facility] - [facility] NEUTROPHILS 80 % 06/17/2023 11:28 AM [employer] [facility] LYMPHOCYTES 11 % 06/17/2023 11:28 AM [employer] [facility] MONOCYTES 7 % 06/17/2023 11:28 AM PROFESSIONAL NURSING ASSISTANT [employer] [facility] - [facility] EOSINOPHILS 1 % 06/17/2023 11:28 AM [employer] [facility] BASOPHILS 1 % 06/17/2023 11:28 AM [facility] IMMATURE GRANULOCYTES 1 % 06/17/2023 11:28 AM [employer] [facility] - . [facility] Comment:IG (Immature Granulo cyte) count includes Metamyelocytes, Myelocytes, and Promyelocytes NEUTROPHIL ABSOLUTE 4.64 1.90 - 7.00 K/uL 06/17/2023 11:28 AM [employer] SERVICES - . [facility] LYMPHOCYTE ABSOLUTE 0.66(L) 0.70 - 4.50 K/uL 06/17/2023 11:28 AM [employer] [facility] MONOCYTE ABSOLUTE 0.40 0.10 - 1.30 K/uL 06/17/2023 11:28 AM [employer] [facility] EOSINOPHIL ABSOLUTE 0.04 0.00 - 0.70 K/uL 06/17/2023 11:28 AM [employer] [facility] BASOPHILS ABSOLUTE 0.04 0.00 - 0.20 K/uL 06/17/2023 11:28 AM [employer] - . [facility] IMMATURE GRANULOCYTES ABSOLUTE 0.03 0.00 - 0.03 K/uL 06/17/2023 11:28 AM [employer] SERVICES - . [facility] Blood Venipuncture / Unknown 06/17/2023 10:59 AM PROFESSIONAL NURSING ASSISTANT 06/17/2023 11:02 AM PROFESSIONAL NURSING ASSISTANT Enrique Mckinney MD HEMATOLOGY ORDERABLE S [facility] LABORATORY SERVICES - [facility] CLIA# [id number] [address] [place] [address] * TRANSFUSE RED BLOOD CELLS (06/17/2023 5:13 AM PROFESSIONAL NURSING ASSISTANT) Enrique Mckinney MD BLOOD TRANSFUSION OR DERABLES * TRANSFUSE RED BLOOD CELLS (06/17/2023 5:13 AM PROFESSIONAL NURSING ASSISTANT) Enrique cMkinney MD BLOOD TRANSFUSION OR DERABLES * TRANSFUSE RED BLOOD CELLS (06/17/2023 2:28 AM PROFESSIONAL NURSING ASSISTANT) Byron Goetz MD BLOOD TRANSFUSION OR DERABLES * TRANSFUSE RED BLOOD CELLS (06/17/2023 2:28 AM PROFESSIONAL NURSING ASSISTANT) Byron Goetz MD BLOOD TRANSFUSION OR DERABLES * PREPARE RED BLOOD CELLS (06/16/2023 11:47 PM PROFESSIONAL NURSING ASSISTANT) [facility] COMPONENT TYPE [id number] [facility]ORY [facility] COMPONENT IDENTIFICATION [id number] [facility] -- [facility] UNIT ABO O [facility] LABORATORY SERVICES -- [facility] UNIT RH POS [facility] LABORATORY SERVICES -- [facility] CROSSMATCH Compatible [facility]ORY [facility] -- [facility] COMPONENT STATUS Transfused [facility] -- [facility] COMPONENT EXPIRATION DATE/TIME [id number] [facility] LAB[facility]ORY SERVICES -- [facility] COMPONENT CODING SYSTEM 5100 [facility] LABORATORY SERVICES -- [facility] VOLUME, BLOOD PRODUCT 350 [facility] LABORATORY SERVICES -- [facility] Other, specify 06/16/2023 11 :47 PM PROFESSIONAL NURSING ASSISTANT Enrique Mckinney MD LAB TRANSFUSION ORDE JAMES [facility]ATORY SERVICES -- [facility] CLIA# [id number] [address] [place] [address] * VERIFICATION BLOOD GROUP (06/16/2023 7:05 PM PROFESSIONAL NURSING ASSISTANT) ABO GROUP O 06/16/2023 9:27 PM PROFESSIONAL NURSING ASSISTANT [facility] LABORATORY SERVICES -- [facility] RH (D) TYPE Positive 06/16/2023 9:27 PM PROFESSIONAL NURSING ASSISTANT [facility] LABORATORY SERVICES -- [facility] Blood Venipuncture / Unknown 06/16/2023 7:05 PM PROFESSIONAL NURSING ASSISTANT 06/16/2023 7:31 PM PROFESSIONAL NURSING ASSISTANT Stephy James MD BLOOD BANK SB HUGHES [facility] LABORATORY SERVICES -- [facility] CLIA# [id number] [address] [place] [address] * PREPARE RED BLOOD CELLS (06/16/2023 7:01 PM PROFESSIONAL NURSING ASSISTANT) COMPONENT TYPE [id number] [facility] LABORATORY SERVICES -- [facility] COMPONENT IDENTIFICATION [id number] [facility] LABORATORY SERVICES -- [facility] UNIT ABO O [facility] LABORATORY SERVICES -- [facility] RH POS [facility] LABORATORY SERVICES -- [facility] CROSSMATCH Compatible [facility] LABORATORY SERVICES -- [facility] COMPONENT STATUS Transfused [facility] LABORATORY SERVICES -- .[facility] COMPONENT EXPIRATION DATE/TIME [facility] LABORATORY SERVICES -- [facility] COMPONENT CODING SYSTEM 5100 [facility] LABORATORY SERVICES -- .[facility] VOLUME, BLOOD PRODUCT 350 [facility] LABORATORY SERVICES -- [facility] Other, specify 06/16/2023 7: 01 PM PROFESSIONAL NURSING ASSISTANT Byron Goetz MD LAB TRANSFUSION LEXX RAMIREZ [facility] LABORATORY SERVICES -- [facility] CLIA# [id number] [address] [place] [address] * POC , URINE (06/16/2023 5:47 PM PROFESSIONAL NURSING ASSISTANT) Pathologist [facility] HCG QUAL URINE Negative Negative 06/16/2023 5:47 PM PROFESSIONAL NURSING ASSISTANT [facility] LABORATORY SERVICES [facility] Urine 06/16/2023 5:47 PM PROFESSIONAL NURSING ASSISTANT 06/16/2023 5:54 PM PROFESSIONAL NURSING ASSISTANT Narrative [facility] LABORATORY SERVICES - [facility] - 06/16/2023 5:47 PM PROFESSIONAL NURSING ASSISTANT Positive : Result is greater than or equal to 25 mIU/mL ? Negative: ??Result is less than 25 mIU/mL Invalid: Result is borderline or indeterminate,send to lab for serum test methodology. Autumn Rios MD POINT OF CARE TESTIN G [facility] LABORATORY [facility]# [id number] [address] [place] [address] * EXTRA TUBE (URINE CONTAINER) (06/16/2023 5:42 PM PROFESSIONAL NURSING ASSISTANT) Urine URINE SPECIMEN OBTAINED BY CLEAN CATCH PROCEDURE / Unknown Collection / Unknown 06/16/2023 5:42 PM PROFESSIONAL NURSING ASSISTANT 06/16/2023 5:50 PM PROFESSIONAL NURSING ASSISTANT Protocol [facility] Emergency URINE ORDERA BLES Performing Organization Address City/[facility]/ZIP Co de Phone Number [facility] LABORATORY [facility]# [id number] [address] [place] [address] * MANUAL DIFFERENTIAL (06/16/2023 4:03 PM PROFESSIONAL NURSING ASSISTANT) Pathologist [facility] PLATELET EST. Consistent w Count 06/16/2023 5:46 PM PROFESSIONAL NURSING ASSISTANT [facility] LABORATORY SERVICES - . [facility] ANISOCYTOSIS 2+ /hpf 06/16/2023 5:46 PM PROFESSIONAL NURSING ASSISTANT [facility] LABORATORY SERVICES - . [facility] POIKILOCYTES 1+ /hpf 06/16/2023 5:46 PM PROFESSIONAL NURSING ASSISTANT [facility] LABORATORY SERVICES - . [facility] MICROCYTES 2+ /hpf 06/16/2023 5:46 PM PROFESSIONAL NURSING ASSISTANT [facility] LABORATORY SERVICES - [facility] HYPOCHROMIA 2+ /hpf 06/16/2023 5:46 PM PROFESSIONAL NURSING ASSISTANT [employer] LABORATORY SERVICES - [facility] TARGET CELLS 1+ /hpf 06/16/2023 5:46 PM [facility] [employer] LABORATORY SERVICES - [facility] OVALOCYTES 1+ /hpf 06/16/2023 5:46 PM [facility] [employer] LAB[facility]ATORY SERVICES [facility] Blood Venipuncture / Unknown 06/16/2023 4:03 PM PROFESSIONAL NURSING ASSISTANT 06/16/2023 4:15 PM PROFESSIONAL NURSING ASSISTANT Autumn Rios MD HEMATOLOGY ORDERABLE S COM [employer] LABORATORY SERVICES - [facility] CLIA# [id number] [address] [facility] [place] [address] * (ABNORMAL) COMPREHENSIVE METABOLIC PANEL (06/16/2023 4:03 PM PROFESSIONAL NURSING ASSISTANT) SODIUM 135(L) 136 - 145 mmol/L 06/16/2023 5:02 PM [facility] [employer] LABORATORY SERVICES - [facility] [place] POTASSIUM 3.5 3.5 - 5.0 mmol/L 06/16/2023 5:02 PM [facility] [employer] LAB[facility]ATORY SERVICES [facility] CHLORIDE 100 98 - 107 mmol/L 06/16/2023 5:02 PM [facility] [employer] LAB[facility]ATORY SERVICES [facility] CO2 24 22 - 29 mmol/L 06/16/2023 5:02 PM [facility] [employer] LAB[facility]ATORY SERVICES [facility] CALCIUM 9.3 8.6 - 10.2 mg/dL 06/16/2023 5:02 PM [facility] [employer] LAB[facility]ATORY SERVICES [facility] BUN 9 6 - 20 mg/dL 06/16/2023 5:02 PM [facility] [employer] LAB[facility]ATORY SERVICES - [facility] CREATININE 0.59 0.51 - 0.95 mg/dL 06/16/2023 5:02 PM [facility] [employer] LAB[facility]ATORY SERVICES - [facility] GLUCOSE 100(H) 74 - 99 mg/dL 06/16/2023 5:02 PM [facility] [employer] LABORATORY SERVICES - [facility] TOTAL PROTEIN 7.2 6.7 - 8.6 g/dL 06/16/2023 5:02 PM PROFESSIONAL NURSING ASSISTANT [employer] LABORATORY SERVICES - [facility] ALBUMIN 4.9 3.5 - 5.2 g/dL 06/16/2023 5:02 PM [facility] BILIRUBIN TOTAL 0.3 0.3 - 1.2 mg/dL 06/16/2023 5:02 PM [facility] ALKALINE PHOSPHATASE 57 35 - 104 U/L 06/16/2023 5:02 PM [facility] AST 14 <33 U/L 06/16/2023 5:02 PM [facility] - [facility] ALT 9 <34 U/L 06/16/2023 5:02 PM [facility] GFR >60 >=60 mL/min/1.7 3 sq meter 06/16/2023 5:02 PM [facility] Comment:eGFR calculated with 2020 CKD-EPI equation. Vegetarian diet, extremely high or low muscle mass, and may affect results. Cystatin C with Glomerular Filtration Rate is a suitable alternative for these patients. ANION GAP 11 8 - 16 mmol/L 06/16/2023 5:02 PM [facility] Blood Venipuncture / Unknown 06/16/2023 4:03 PM PROFESSIONAL NURSING ASSISTANT 06/16/2023 4:15 PM [facility] - [facility] - 06/16/2023 5:02 PM PROFESSIONAL NURSING ASSISTANT Samples containing indocyanine green cause interferences on Total and/or Direct Bilirubin and must not be measured. Autumn Rios MD CHEMISTRY ORDERABLES [facility]# [id number] [facility] [place] [address] * TYPE AND SCREEN (06/16/2023 4:03 PM PROFESSIONAL NURSING ASSISTANT) ABO GROUP O 06/16/2023 5:38 PM [facility] [employer] [facility] RH (D) TYPE Positive 06/16/2023 5:38 PM [facility] [employer] [facility] ANTIBODY SCREEN Negative 06/16/2023 5:38 PM [facility] [employer] [facility] Blood Venipuncture / Unknown 06/16/2023 4:03 PM PROFESSIONAL NURSING ASSISTANT 06/16/2023 4:15 PM PROFESSIONAL NURSING ASSISTANT Autumn Rios MD BLOOD BANK ORDERABLE S [facility] LABORATORY SERVICES -- [facility] CLIA# [id number] [address] [place] [address] * (ABNORMAL) CBC WITH DIFFERENTIAL (06/16/2023 4:03 PM PROFESSIONAL NURSING ASSISTANT) Pathologist [facility] WBC 7.4 4.0 - 9.8 K/uL 06/16/2023 4:58 PM [facility] [employer] [facility] RBC 3.83(L) 3.90 - 4.90 M/uL 06/16/2023 4:58 PM [facility] [employer] [facility] HEMOGLOBIN 6.2(LL) 11.8 - 14.8 g/dL 06/16/2023 4:58 PM [facility] [employer] LABORATORY [facility] Comment:Verified by repeat a nalysis. HEMATOCRIT 23.4(L) 35.5 - 44.0 % 06/16/2023 4:58 PM [facility] [employer] LABORATORY [facility] MCV 61.1(L) 82.0 - 99.0 fL 06/16/2023 4:58 PM [facility] MCH 16.2(L) 27.2 - 32.6 pg 06/16/2023 4:58 PM [facility] MCHC <27.0(L) 31.5 - 35.5 g/dL 06/16/2023 4:58 PM PROFESSIONAL NURSING ASSISTANT [facility] RDW 21.9(H) 11.5 - 14.5 % 06/16/2023 4:58 PM PROFESSIONAL NURSING ASSISTANT [employer] [facility] RDW-STDEV 44.3 37.1 - 48.7 fL 06/16/2023 4:58 PM [facility] PLATELETS 352(H) 140 - 350 K/uL 06/16/2023 4:58 PM [facility] [employer] [facility] MPV 10.4 9.3 - 12.4 fL 06/16/2023 4:58 PM PROFESSIONAL NURSING ASSISTANT [facility] LABORATORY SERVICES [facility] NEUTROPHILS 76 % 06/16/2023 4:58 PM PROFESSIONAL NURSING ASSISTANT [facility] LAB[facility]ATORY SERVICES [facility] LYMPHOCYTES 18 % 06/16/2023 4:58 PM PROFESSIONAL NURSING ASSISTANT [facility] LAB[facility]ATORY SERVICES [facility] MONOCYTES 5 % 06/16/2023 4:58 PM PROFESSIONAL NURSING ASSISTANT [facility] LAB[facility]ATORY SERVICES - [facility] EOSINOPHILS 0 % 06/16/2023 4:58 PM PROFESSIONAL NURSING ASSISTANT [facility] LAB[facility]ATORY SERVICES [facility] BASOPHILS 1 % 06/16/2023 4:58 PM PROFESSIONAL NURSING ASSISTANT [facility] LAB[facility]ATORY SERVICES - [facility] IMMATURE GRANULOCYTES 0 % 06/16/2023 4:58 PM PROFESSIONAL NURSING ASSISTANT [facility] LABORATORY SERVICES - [facility] NEUTROPHIL ABSOLUTE 5.64 1.90 - 7.00 K/uL 06/16/2023 4:58 PM PROFESSIONAL NURSING ASSISTANT [facility] LABORATORY SERVICES - [facility] LYMPHOCYTE ABSOLUTE 1.29 0.70 - 4.50 K/uL 06/16/2023 4:58 PM PROFESSIONAL NURSING ASSISTANT [facility] LAB[facility]ATORY SERVICES - [facility] MONOCYTE ABSOLUTE 0.36 0.10 - 1.30 K/uL 06/16/2023 4:58 PM PROFESSIONAL NURSING ASSISTANT [facility] LABORATORY SERVICES - [facility] EOSINOPHIL ABSOLUTE 0.01 0.00 - 0.70 K/uL 06/16/2023 4:58 PM PROFESSIONAL NURSING ASSISTANT [facility] LABORATORY SERVICES - [facility] BASOPHILS ABSOLUTE 0.05 0.00 - 0.20 K/uL 06/16/2023 4:58 PM PROFESSIONAL NURSING ASSISTANT [facility] LABORATORY SERVICES - [facility] IMMATURE GRANULOCYTES ABSOLUTE 0.03 0.00 - 0.03 K/uL 06/16/2023 4:58 PM PROFESSIONAL NURSING ASSISTANT [facility] LABORATORY [facility] Blood Venipuncture / Unknown 06/16/2023 4:03 PM PROFESSIONAL NURSING ASSISTANT 06/16/2023 4:15 PM PROFESSIONAL NURSING ASSISTANT Autumn Rios MD HEMATOLOGY ORDERABLE S [facility] LABORATORY SERVICES - [facility] CLIA# [id number] [facility] [place] [address] documented in this encounter Visit Diagnoses Diagnosis AUB, anemia- PRBC, iron- Primary Excessive or frequent menstruation Encounter for blood typing Acute blood loss anemia Acute posthemorrhagic anemia DUB (dysfunctional uterine bleeding) Other disorder of menstruation and other abnormal bleeding from female genital tract Acute blood loss anemia Acute posthemorrhagic anemia documented in this encounter Administered Medications Inactive Administered Medications - up to 3 most recent administrations Medication Order MAR Action Action Date Dose Rate Site acetaminophen (TYLENOL) tablet 650 mg 650 mg, Oral, EVERY 6 HOURS PRN, Starting on Fri06/16/23 at 2051, Until Fri06/17/23 at 1528, Other (See Comment), See admin instructions, Routine ibuprofen (MOTRIN) tablet 400 mg 400 mg, Oral, EVERY 6 HOURS PRN, Starting on Fri06/16/23 at 2051, Until Fri06/17/23 at 1528, Pain, For pain secondary to inflammation, Routine iron sucrose (VENOFER) 100 mg iron/5 mL injection 200 mg 200 mg, IV, ONE TIME ONLY, 1 dose, On Fri06/17/23 at 0300, Routine Given 06/17/2023 3:31 AM PROFESSIONAL NURSING [employer]ISTANT 200 mg metoclopramide (REGLAN) 5 mg/mL injection 10 mg 10 mg, IV, EVERY 6 HOURS PRN, Starting on Fri06/16/23 at 205, Until Fri06/17/23 at 1528, Nausea/Emesis, Routine naloxone (NARCAN) 0.4 mg/mL injection 0.1 mg 0.1 mg, IV, SEE ADMIN INSTRUCTIONS, Starting on Fri06/16/23 at 205, Until Fri06/17/23 at 1528, Routine ondansetron (ZOFRAN ODT) tablet 4 mg 4 mg, Oral, EVERY 6 HOURS PRN, Starting on Fri06/16/23 at 205, Until Fri06/17/23 at 1528, Nausea/Emesis, Routine ondansetron (ZOFRAN) 4 mg/2 mL injection 4 mg 4 mg, IV, EVERY 6 HOURS PRN, Starting on Fri06/16/23 at 205, Until Fri06/17/23 at 1528, Nausea/Emesis, Routine polysaccharide iron complex (FERREX 150,IFEREX 150) capsule 150 mg 150 mg, Oral, DAILY, First dose on Fri06/17/23 at 1300, Until Discontinued, Routine Given 06/17/2023 1:20 PM PROFESSIONAL NURSING ASSISTANT 150 mg tranexamic acid (LYSTEDA) tablet 1,300 mg 1,300 mg, Oral, THREE TIMES DAILY, First dose on Fri06/16/23 at 2100, Until Discontinued, Routine, Previous Med: tranexamic acid (LYSTEDA) 650 mg Tablet tablet - Orig Sig - Take 2 Tablets (1,300 mg) by mouth 3 times daily. Given 06/17/2023 12:34 PM PROFESSIONAL NURSING ASSISTANT 1,300 mg Given 06/17/2023 8:22 AM PROFESSIONAL NURSING ASSISTANT 1,300 mg Given 06/16/2023 10:08 PM PROFESSIONAL NURSING ASSISTANT 1,300 mg documented in this encounter Active and Recently Administered Medications Times are shown in PROFESSIONAL NURSING ASSISTANT. Scheduled Medication Order 06/15/2023 06/16/2023 06/17/2023 iron sucrose (VENOFER) 100 mg iron/5 mL injection 200 mg (COMPLETED) 200 mg, IV, ONE TIME ONLY, 1 dose, On Fri06/17/23 at 0300, Routine 0331 (Given - Provid er: Chris Wen RN) naloxone (NARCAN) 0.4 mg/mL injection 0.1 mg 0.1 mg, IV, SEE ADMIN INSTRUCTIONS, Starting on Fri06/16/23 at 2051, Until Fri06/17/23 at 1528, Routine polysaccharide iron complex (FERREX 150,IFEREX 150) capsule 150 mg 150 mg, Oral, DAILY, First dose on Fri06/17/23 at 1300, Until Discontinued, Routine 1320 (Given - Provid er: Radha Mora RN) tranexamic acid (LYSTEDA) tablet 1,300 mg 1,300 mg, Oral, THREE TIMES DAILY, First dose on Fri06/16/23 at 2100, Until Discontinued, Routine, Previous Med: tranexamic acid (LYSTEDA) 650 mg Tablet tablet - Orig Sig - Take 2 Tablets (1,300 mg) by mouth 3 times daily. 2207 (Given - Provider: Chris Wen RN) 0822 (Given - Provider: Radha Mora, ROMEO)1234 (Given - Provider: Radha Mora RN) PRN Medication Order 06/15/2023 06/16/2023 06/17/2023 acetaminophen (TYLENOL) tablet 650 mg 650 mg, Oral, EVERY 6 HOURS PRN, Starting on Fri06/16/23 at 2052, Until Fri06/17/23 at 1528, Other (See Comment), See admin instructions, Routine ibuprofen (MOTRIN) tablet 400 mg 400 mg, Oral, EVERY 6 HOURS PRN, Starting on Fri06/16/23 at 2052, Until Fri06/17/23 at 1528, Pain, For pain secondary to inflammation, Routine metoclopramide (REGLAN) 5 mg/mL injection 10 mg 10 mg, IV, EVERY 6 HOURS PRN, Starting on Fri06/16/23 at 2052, Until Fri06/17/23 at 1528, Nausea/Emesis, Routine ondansetron (ZOFRAN ODT) tablet 4 mg 4 mg, Oral, EVERY 6 HOURS PRN, Starting on Fri06/16/23 at 205, Until Fri06/17/23 at 1528, Nausea/Emesis, Routine ondansetron (ZOFRAN) 4 mg/2 mL injection 4 mg 4 mg, IV, EVERY 6 HOURS PRN, Starting on Fri06/16/23 at 205, Until Fri06/17/23 at 1528, Nausea/Emesis, Routine documented in this encounter Care Teams Portable Track Line Marker Relationship Specialty Start Date End Date Roxanna Acosta MD PCP - General Family Practice 02/19/12 documented as of this encounter
--- OUTSIDE RECORDS SUMMARY | 2024-07-24 09:42 | XMS_ITS | Encounter Summary ---
Author Organization [facility] Address [address] [place] [address] Care Team Providers Care Director Supply Chain Name Role Phone Roxanna Acosta MD Primary Care Provider Reason for Visit * Reason Onset Date Comments Pathology Question 06/16/2023 Encounter Details Date Type Department Care Team (Late st Contact Info) Description 06/16/2023 Telephone [facility] Women's Health Clinical Support [address] [place] [address] Ciara Mcwilliams, RN Pathology Question Social History Tobacco Use Types Packs/Day [...] encounter Miscellaneous Notes * Telephone Encounter - Ciara Mcwilliams RN - 06/16/2023 2:06 PM CST Call received from [facility] wanting to verify source of specimen from 06/12/23. Informed lab specimen is from endometrium. RNET DEVELOPER documented in this encounter Plan of Treatment Upcoming Encounters Date Type Department Care Team (Late st Contact Info) Description 08/23/2024 11:15 AM INTERNET DEVELOPER Office Visit [facility] Oncology and Hematology - [place] [address] [facility] [address] [place] [address] Michele Smith MD [address] [facility] [address] [place] [address] documented as of this encounter Visit Diagnoses Not on filedocumented in this encounter Care Teams Director Supply Chain Relationship Specialty Start Date End Date Roxanna Acosta MD PCP - General Family Practice 02/19/12 documented as of this encounter
--- OUTSIDE RECORDS SUMMARY | 2024-07-24 09:42 | XMS_ITS | Encounter Summary ---
Author Organization [facility] Address [address] [place] [address] Care Team Providers Care System Administration Manager Name Role Phone Roxanna Acosta MD Primary Care Provider Encounter Details Date Type Department Care Team (Late Contact Info) Description 10/17/2023 External Device Data STL ABSTRACTION Provider, Abstract [...] Upcoming Encounters Date Type Department Care Team ([facility] [address] Contact Info) Description 08/23/2024 11:15 AM MED AIDE Office Visit [facility] Oncology and Hematology - [place] [address] [facility] [address] [place] [address] Michele Smith MD [address] [facility] [address] [place] [address] documented as of this encounter Visit Diagnoses Not on filedocumented in this encounter Care Teams System Administration Manager Relationship Specialty Start Date End Date Roxanna Acosta MD PCP - General Family Practice 02/19/12 documented as of this encounter
--- OUTSIDE RECORDS SUMMARY | 2024-07-24 09:42 | XMS_ITS | Encounter Summary ---
Author Organization [facility] Address [address] [facility] Attn: [place] [address] Care Team Providers Care Armorer Technician Name Role Phone Roxanna Acosta MD Primary Care Provider [phone] Encounter Details Date Type Department Care Team (Latest Contact Info) Description 09/29/2019 Travel Social History Tobacco Use Types Packs/Day [...] st Contact Info) Description 08/23/2024 11:15 AM CHEMICAL PROCESS ANALYST Office Visit [facility] Oncology and Hematology - [place] [address] [facility] [address] [place] [address] Michele Smith MD [address] [facility] [address] [place] [address] documented as of this encounter Visit Diagnoses Not on filedocumented in this encounter Care Teams Armorer Technician Relationship Specialty Start Date End Date Roxanna Acosta MD PCP - General Family Practice 02/19/12 documented as of this encounter
--- OUTSIDE RECORDS SUMMARY | 2024-07-24 09:42 | XMS_ITS | Encounter Summary ---
Author Organization [facility] Address [address] [place] [address] Care Team Providers Care Barrel Inspector Tight Name Role Phone Roxanna Acosta MD Primary Care Provider [phone] Encounter Details Date Type Department Care Team (Late Contact Info) Description 01/27/2024 Orders Only [facility] Oncology and Hematology - [place] [address] [facility] [address] [place] [address] Raissa Diaz, NIKITA [address] [facility] [address] [place] [address] Social History Tobacco Use Types [...] st Contact Info) Description 08/23/2024 11:15 AM REGIONAL PRODUCTION MANAGER Office Visit [facility] Oncology and Hematology - [place] [address] [facility] [address] [place] [address] Michele Smith MD [address] [facility] [address] [place] [address] documented as of this encounter Procedures Procedure Name Priority Date/Time Associated Diagnosis Comments IRON LEVEL Routine 01/26/2024 11:14 AM CDT CBC WITH DIFFERENTIAL Routine 01/26/2024 9:08 AM CDT documented in this encounter Results * IRON LEVEL (01/26/2024 11:14 AM CDT) Blood Raissa Tomac PIANO BENCH ASSEMBLER CHEMISTRY ORDERABLES * CBC WITH DIFFERENTIAL (01/26/2024 9:08 AM CDT) Blood Raissa Tomac PIANO BENCH ASSEMBLER HEMATOLOGY ORDERABLE S documented in this encounter Visit Diagnoses Not on filedocumented in this encounter Care Teams Barrel Inspector Tight Relationship Specialty Start Date End Date Roxanna Acosta MD PCP - General Family Practice 02/19/12 documented as of this encounter
--- OUTSIDE RECORDS SUMMARY | 2024-07-24 09:42 | XMS_ITS | Encounter Summary ---
Author Organization [facility] Address [address] [place] [address] Care Team Providers Care Civil Engineering Project Manager Name Role Phone Roxanna Acosta [...] Upcoming Encounters Date Type Department Care Team ([facility] Contact Info) Description 08/23/2024 11:15 AM AERODYNAMICIST Office Visit [facility] Oncology and Hematology - [place] [address] [facility] [address] [place] [address] Michele Smith MD [address] [facility] [address] [place] [address] documented as of this encounter Visit Diagnoses Not on filedocumented in this encounter Care Teams Civil Engineering Project Manager Relationship Specialty Start Date End Date Roxanna Acosta MD PCP - General Family Practice 02/19/12 documented as of this encounter
--- OUTSIDE RECORDS SUMMARY | 2024-07-24 09:43 | XMS_ITS | Encounter Summary ---
Author Organization [facility] Address [address] [place] [address] Care Team Providers Care Area Field Worker Name Role Phone Roxanna Acosta MD Primary Care Provider Reason for Visit * Auth/Cert (Routine) Specialty Diagnoses / Procedures Referred By Contac t Referred To Contact Procedures NC CONIZATION CERVIX,LOOP ELECTRD Referral ID Status Reason Start Date Expiration Date Visits Re quested Visits Authorized [id number] 09/09/2017 10/10/2018 1 1 Encounter Details Date Type Department Care Team (Late st Contact Info) Description 09/23/2017 10:57 AM SCALE TESTER Anesthesia Event [facility] Operating Room [address] [place] [address] Charlie Freeman MD [address] [place] [address] Anesthesia Record Procedure Summary Procedure Name Responsible Anesthesiologist Anesthesia Start Time Anesthesia Stop Time LOCAL CERVICAL CONE LEEP (Cervix) Charlie Freeman MD 09/23/17 1057 09/23/17 1122 Events Date Time Event Comment 09/23/2017 0954 1016 AN Equip Check Anesthesia eq uipment and materials checked in accordance with local policy. 1057 An Start 1057 An Start Data 1057 Pre-Induction Immediate pre- induction anesthetic assessment performed. Vital signs as noted on graphic. 1059 An Induction 1100 Anesthesia Ready 1106 Quick Note Paracervical bl ock placed by surgeon 1120 an stop data 1122 An Stop Meds Name Total fentaNYL (SUBLIMAZE) PF 50??mcg/mL injec tion 50 mcg lidocaine (XYLOCAINE) 2% syringe 60 mg propofol (DIPRIVAN) 10??mg/mL injection 250 mg ketorolac (TORADOL) 30??mg/mL injection 50 mg ondansetron (ZOFRAN) 4??mg/2 mL injectio n 4 mg lactated Ringers solution 500 mL * Agents Name Sevoflurane % Sevoflurane O2 N2O Inspired N2O O2 * Blood No blood administrations on file. Lines, Drains, and Airways Type Details Placement Removal Peripheral IV Pre-Hospital Start: No; Orientation: Right; Location: Hand; Device: Angiocath; Gauge: 20 gauge; Needle Length: 1.25 in length; Insertion Attempts: 1; Patient Tolerance: tolerated well; Removal Indication: no longer indicated; Removal Interventions: pressure dressing 09/23/17 0953 by Jennifer Lopez RN 09/23/17 1148 by Irina Lozano RN Adult Incision 09/23/17; 1025; surg ical incision; vagina; 09/24/17; 0010 09/23/17 1025 by Anusha Carlos RN 09/24/17 0010 by PROVIDER, DISCHARGE PATIENT Supraglottic Airway Type: nasal cannula; Confirmation: satisfactory chest rise, SAO2, end tidal CO2 09/23/17 1058 by Monie Iraheta CRNA 09/23/17 1116 by Monie Iraheta CRNA documented in this encounter Social History Tobacco [...] OR Notes * Anesthesia Postprocedure Evaluation - Charlie Freeman MD - 09/23/2017 11:37 AM CST Phase II Postanesthesia Evaluation Including [facility] Modified Jermain Score Patient seen and evaluated: Lazaroy Modified Jermain Score: Score: 20 (09/23/17943) COMMENTS: No apparent Anesthesia related complications RESPIRATORY FUNCTION: Respiration: able to breath and cough freely (09/23/17943) [2=able to breathe and cough freely, 1=dyspnea, limited breathing or tachypnea, 0=apnea or mechanicventilator] O2 Saturation: able to maintain O2 saturation greater than 92% on room air (09/23/17943) [2=able to maintain O2 saturation greater than 92% on room air, 1=needs O2 inhalation to maintain O2 saturation greater than 90%, 0=O2 saturation less than 90% even with O2 supplement] Resp: 12 (09/23/171128)SpO2: 95 % (09/23/171128) CARDIOVASCULAR FUNCTION: BP: (!) 110/91 (09/23/171128) Circulation: BP within 20% of preanesthetic level (09/23/17943) [2=BP within 20% of preanesthetic level, 1=BP within 20-49% of preanesthetic level, 0=BP within 50%of preanesthetic level] MENTAL STATUS, NEURO, ACTIVITY: PATIENT PARTICIPATION IN EVALUATIONyes Consciousness: fully awake (09/23/17943) [2=fully awake, 1=arousable on calling, 0=not responding] Activity: able to move 4 extremities voluntarily or on command (09/23/17943) [2=able to move 4 extremities voluntarily or on command, 1=able to move 2 extremities voluntarily or on command, 0=unable to move extremities voluntarily or on command] Ambulation: able to stand up and walk straight, on ordered bedrest, or performing at patient's prior level of function (09/23/17943) [2=able to stand up and walk straight, on ordered bedrest, or performing at patient's prior level of function, 1=vertigo when erect, 0=dizziness when supine] TEMPERATURE: Temp: 36.8 ??C (09/23/171121) PAIN: Pain: pain free (09/23/17943) [2=pain free, 1=pain handled by oral medication, 0=pain requiring parenteral medication] NAUSEA AND VOMITING: no nausea and no vomiting Fasting/Feeding: able to drink fluids, ice chips or NPO (09/23/17943) [2=able to drink fluids, ice chips or NPO, 1=nauseated, 0=nausea and vomiting] POSTOPERATIVE HYDRATION: well hydrated Intake/Output Summary (Last 24 hours) at 09/23/17 1137 Last data filed at 09/23/17 1115 Gross per 24 hour Intake 500 ml Output 0 ml Net 500 ml Urine Output: has voided, adequate urine output per device, or not applicable (09/23/17943) [2=has voided, adequate urine output per device, or not applicable, 1=unable to void but comfortable, 0=unable to void and uncomfortable] WOUND: Dressing: dry and clean or not applicable (09/23/17943) [2=dry and clean or not applicable, 1=wet, marked and not increasing, 0=growing area of wetness] Charlie Freeman MD 09/23/2017 11:37 AM Post Anesthesia Evaluation Vitals: BP (!) 110/91 (Patient Position (BP): Sitting) Pulse 80 Temp 36.8 ??C Resp 12 Ht 5'2 (1.575 m) Wt 65.8 kg (145 lb) LMP 08/24/2017 SpO2 95% BMI 26.52 kg/m?? Pain Rating: Nausea/Vomiting: no nausea and no vomiting Post-Op hydration: well hydrated Respiratory function: no respiratory symptoms Airway patency: normal Cardiovascular function: Normal - Regular rate and rhythm Mental status, LOC: 0=alert; keenly responsive Patient participated in evaluation: yes Unanticipated Events: no Charlie Freeman MD E TESTER * Anesthesia Handoff - Monie Iraheta CRNA - 09/23/2017 11:22 AM CST Post-Anesthetic transfer of care report elements to [...] and acknowledgement of understanding. Vital Signs: BP: 115/69 (09/23/2017 11:22 AM) Pulse: 98 (09/23/2017 11:22 AM) Temp: 36.8 ??C (09/23/2017 11:22 AM) Resp: 14 (09/23/2017 11:22 AM) SpO2: 96 % (09/23/2017 11:22 AM) 11:26 AM Monie Iraheta CRNA E TESTER * Anesthesia Preprocedure Evaluation - Charlie Freeman MD - 09/22/2017 5:56 PM CST Relevant Problems No active problems are marked relevant to this note. Anesthesia Evaluation Patient summary reviewed and Nursing notes reviewed Airway Mallampati: I TM distance: >3 FB Neck ROM: full Dental - normal exam Pulmonary - normal exam breath sounds clear to auscultation (-) pneumonia, COPD, asthma, shortness of breath, recent URI, sleep apnea Cardiovascular - normal exam Exercise tolerance: good (-) hypertension, valvular problems/murmurs, past MA, CAD, CABG/stent, dysrhythmias, CHF, HOPKINS Rhythm: regular Rate: normal Neuro/Psych - negative ROS (-) neuromuscular disease, TIA, CVA GI/Hepatic/Renal (-) hiatal hernia, GERD, liver disease, renal disease Endo/Other (-) diabetes mellitus, hypothyroidism Abdominal Anesthesia History No history of anesthetic complications, no history of difficult intubation, no history of malignanthyperthermia, no history of PONV and no pseudocholinesterase deficiency. Anesthesia Plan ASA 2 General Intravenous induction Mask airway maintenance NPO status > 6 hours Anesthetic plan and risks discussed with Patient. Plan discussed with Surgeon, Nurse Analysis Manager and Other. Post-op Pain Control Plan to use IV or IM medication for post-op pain control. Smoking Compliance Patient did not smoke on day of surgery E TESTER documented in this encounter Plan of Treatment Upcoming Encounters Date Type Department Care Team (Late st Contact Info) Description 08/23/2024 11:15 AM SCALE TESTER Office Visit [facility] Oncology and Hematology - [place] [address] [facility] [address] [place] [address] Michele Smith MD [facility] [address] [place] [address] documented as of this encounter Visit Diagnoses Not on filedocumented in this encounter Administered Medications Inactive Administered Medications - up to 3 most recent administrations Medication Order MAR Action Action Date Dose Rate Site fentaNYL PF (SUBLIMAZE) 50 mcg/mL injection INTRA-PROCEDURE PRN, Starting on Fri09/23/17 at 1059, Until Fri09/23/17 at 1126, Pain (See admin instructions), Routine, Anesthesia Intra-op Given 09/23/2017 10:59 AM SCALE TESTER 50 mcg ketorolac (TORADOL) injection INTRA-PROCEDURE PRN, Starting on Fri09/23/17 at 1102, Until Fri09/23/17 at 1126, Routine, Anesthesia Intra-op Given 09/23/2017 11:11 AM SCALE TESTER 20 mg Given 09/23/2017 11:02 AM SCALE TESTER 30 mg lidocaine (XYLOCAINE) 60 mg/3 mL (2 %) syringe INTRA-PROCEDURE PRN, Starting on Fri09/23/17 at 1059, Until Fri09/23/17 at 1126, Routine, Anesthesia Intra-op Given 09/23/2017 10:59 AM SCALE TESTER 60 mg ondansetron (ZOFRAN) 4 mg/2 mL injection INTRA-PROCEDURE PRN, Starting on Fri09/23/17 at 1102, Until Fri09/23/17 at 1126, Nausea/Emesis, Routine, Anesthesia Intra-op Given 09/23/2017 11:02 AM SCALE TESTER 4 mg propofol (DIPRIVAN) injection INTRA-PROCEDURE PRN, Starting on Fri09/23/17 at 1059, Until Fri09/23/17 at 1126, Anesthesia Intra-op Given 09/23/2017 11:09 AM SCALE TESTER 30 mg Given 09/23/2017 11:05 AM SCALE TESTER 50 mg Given 09/23/2017 11:02 AM SCALE TESTER 50 mg documented in this encounter Care Teams Area Field Worker Relationship Specialty Start Date End Date Roxanna Acosta MD PCP - General Family Practice 02/19/12 documented as of this encounter
--- OUTSIDE RECORDS SUMMARY | 2024-07-24 09:43 | XMS_ITS | Encounter Summary ---
Author Organization [facility] Address [address] [place] [address] Care Team Providers Care Recoater Name Role Phone Roxanna Acosta MD Primary Care Provider Encounter Details Date Type Department Care Team (Late st Contact Info) Description 07/29/2007 Outpatient Historical [facility] Enrique Mckinney MD [address] [address] Social History Tobacco Use Types Packs/Day Years Used Date Smoking Tobacco: Never Assessed Sex and Gender Information Value Date Recorded Sex Assigned at Not on file Gender Identity Not on file Sexual Orientation Not on file documented as of this encounter Plan of Treatment Upcoming Encounters Date Type Department Care Team (Late Contact Info) Description 08/23/2024 11:15 AM CAPONIZER Office Visit [facility] Oncology and Hematology - [place] [address] [place] [address] [address] [place] [address] Michele Smith MD [address] [facility] [address] [place] [address] documented as of this encounter Procedures Procedure Name Priority Date/Time Associated Diagnosis Comments URINALYSIS WITH REFLEX CULTURE Routine 07/29/2007 12:18 PM CAPONIZER URINALYSIS W/REFLEX MICROSCOPIC Routine 07/29/2007 12:18 PM CAPONIZER documented in this encounter Results * URINALYSIS (07/29/2007 12:18 PM CAPONIZER) COLOR UA Pale Yellow INTERFAC E SYSTEM CLARITY UA Clear Clear INTERFACE SYSTEM SPECIFIC GRAVITY UA 1.003 1.001 - 1.035 INTERFACE SYSTEM PH UA 6.5 5.0 - 8.0 INTERFACE SYSTEM LEUKOCYTE ESTERASE UA Negative Negative INTERFACE SYSTEM NITRITE UA Negative Negative INTERFACE SYSTEM PROTEIN UA Negative Negative INTERFACE SYSTEM GLUCOSE UA Negative Negative INTERFACE SYSTEM KETONES UA Negative Negative INTERFACE SYSTEM UROBILINOGEN UA <1 <=1 mg/dL INTE RFACE SYSTEM BILIRUBIN UA Negative Negative INTERFA CE SYSTEM BLOOD UA Negative Negative INTERFACE SYSTEM 07/29/2007 12:1 8 PM CAPONIZER Enrique Mckinney MD URINE ORDERABLES Performing Organization Address [facility] Phone Number INTERFACE SYSTEM Refer to clinic/hospital department * URINALYSIS WITH REFLEX CULTURE (07/29/2007 12:18 PM CAPONIZER) URINE CULTURE ORDER Not indicated INTERFACE SYSTEM Comment: Criteria for a reflex culture include one or more of the following: ??Abn ormal nitrite, leukocyte esterase, WBCs or RBCs. ??Lack of qualifying criteria does not exclude the possiblity of a urinary tract infection. ??Dilute urine, drug interference, etc. may decrease the sensitivity of the criteria analytes. 07/29/2007 12:1 8 PM CAPONIZER Enrique Mckinney MD URINE ORDERABLES Performing Organization Address [facility] Phone Number INTERFACE SYSTEM Refer to clinic/hospital department documented in this encounter Visit Diagnoses Not on filedocumented in this encounter Care Teams Recoater Relationship Specialty Start Date End Date Roxanna Acosta MD PCP - General Family Practice 02/19/12 documented as of this encounter
--- OUTSIDE RECORDS SUMMARY | 2024-07-24 09:43 | XMS_ITS | Encounter Summary ---
Author Organization [facility] Address [address] [place] [address] Care Team Providers Care Advanced Practice Professional Name Role Phone Roxanna Acosta MD Primary Care Provider Encounter Details Date Type Department Care Team (Latest Contact Info) Description 08/17/2007 Outpatient Historical [facility] Naveed Means MD [address] [facility] [address] [place] [address] Other Specified Complication, Antepartum Social History Tobacco Use Types Packs/Day Years Used Date Smoking Tobacco: Never Assessed Sex and Gender Information Value Date Recorded Sex Assigned at Not on file Gender Identity Not on file Sexual Orientation Not on file documented as of this encounter Plan of Treatment Upcoming Encounters Date Type Department Care Team (Late st Contact Info) Description 08/23/2024 11:15 AM STORE LOSS PREVENTION MANAGER Office Visit [facility] Oncology and Hematology - [place] [address] [facility] [address] [place] [address] Michele Smith MD [address] [facility] [address] [place] [address] documented as of this encounter Visit Diagnoses Diagnosis Other specified complication, antepartum(826.83) Other specified complication, antepartum documented in this encounter Care Teams Advanced Practice Professional Relationship Specialty Start Date End Date Roxanna Acosta MD PCP - General Family Practice 02/19/12 documented as of this encounter
--- OUTSIDE RECORDS SUMMARY | 2024-07-24 09:43 | XMS_ITS | Encounter Summary ---
Author Organization [facility] Address [address] [place] [address] Care Team Providers Care Sql Server Developer Name Role Phone Marly Jordan MD Primary Care Provider [phone] Encounter Details Date Type Department Care Team (Late Contact Info) Description 01/16/2012 Abstract [facility] Primary Care - [facility] [address] [facility] [address] [place] [address] Marly Jordan MD [address] [facility] [address] [place] [address] Social History Tobacco Use Types Packs/Day Years [...] st Contact Info) Description 08/23/2024 11:15 AM MOBILE DISC JOCKEY Office Visit [facility] Oncology and Hematology - [place] [address] [facility] [address] [place] [address] Michele Smith MD [address] [facility] [address] [place] [address] documented as of this encounter Visit Diagnoses Not on filedocumented in this encounter Care Teams Sql Server Developer Relationship Specialty Start Date End Date Marly Jordan MD [address] [place] [address] PCP - General Internal Medicine 01/15/12 02/18/12 documented as of this encounter
--- OUTSIDE RECORDS SUMMARY | 2024-07-24 09:43 | XMS_ITS | Encounter Summary ---
Author Organization [facility] Address [address] [place] [address] Care Team Providers Care Snuff Packing Machine Operator Name Role Phone Barak Greenberg MD Primary Care Provider [phone] Reason for Visit * Reason Comments Ultrasound Encounter Details Date Type Department Care Team (Late Contact Info) Description 01/05/2009 2:00 PM CDT Office Visit [facility] STAMPING DIE TRY OUT WORKER - [facility] [place] [address] [facility] [address] [address] Bridget Harvey Unspecified Screening (Primary Dx) Social History Tobacco Use Types Packs/Day Years Used Date Smoking Tobacco: Never Alcohol Use Standard Drinks/Week Comments No 0 (1 standard drink = 0.6 oz pur e alcohol) Sex and Gender Information Value Date Recorded Sex Assigned at Not on file Gender Identity Not on file Sexual Orientation Not on file documented as of this encounter Progress Notes * Bridget Harvey - 01/05/2009 1:51 PM CDT Patient seen in office today and Ultrasound exam performed. documented in this encounter Plan of Treatment Upcoming Encounters Date Type Department Care Team (Late Contact Info) Description 08/23/2024 11:15 AM WEIGHT TRAINER Office Visit [facility] Oncology and Hematology - [place] [address] [place] [address] [address] [place] [address] Michele Smith MD [address] [facility] [address] [place] [address] documented as of this encounter Procedures Procedure Name Priority Date/Time Associated Diagnosis Comments US OB TRANSVAGINAL Routine 01/05/2009 Unspecified Screening documented in this encounter Results * US OB TRANSVAGINAL (01/05/2009) Anatomical Region Laterality Modality Pelvis Other Impressions 01/05/2009 Rosalba Jimenez is a 28 y.o. female presenting for an Ultrasound. Reason for Ultrasound exam: ??Viability/hx of miscarriage Intrauterine : ??present Gestational Sac: present Heart Motion: 188 Single fetus with CRL: 2.08 cm Gestational age this ultrasound: 8w3d EDC by this ultrasound: 08/12/2009 Comments: ??Repeat 3 months Bridget Wes US ORDERABLES documented in this encounter Visit Diagnoses Diagnosis Unspecified screening- Primary documented in this encounter Care Teams Snuff Packing Machine Operator Relationship Specialty Start Date End Date Barak Greenberg MD [address] [facility] [address] [place] [id number] PCP - General 02/17/04 01/14/12 documented as of this encounter
--- OUTSIDE RECORDS SUMMARY | 2024-07-24 09:43 | XMS_ITS | Encounter Summary ---
Author Organization [employer] Address [address] [place] [address] Care Team Providers Care Chemical Process Engineer Name Role Phone Roxanna Acosta MD Primary Care Provider [phone] Reason for Visit * Outpatient Services (Routine) - Closed Specialty Diagnoses / Procedures Referred By Sana t Referred To Contact Physical Therapy Diagnoses Back pain Procedures PT EVAL AND TREAT Roxanna Acosta MD [address] [place] [address] [facility] [place] [address] [facility] [address] [place] [address] Referral ID Status Reason Start Date Expiration Date Visits Re quested Visits Authorized [id number] Closed 02/20/2012 08/03/2012 60 60 Encounter Details Date Type Department Care Team (Late st Contact Info) Description 02/28/2012 7:30 AM CDT - 02/28/2012 11:59 PM CDT Hospital Encounter [facility] [place] [address] [facility] [address] [place] [address] Roxanna Acosta MD [address] [place] [address] Meryl Graves, Physical Therapist Discharge Disposition: Home or Self Care Social [...] as of this encounter Progress Notes * Meryl Hoffman Physical Therapist - 03/05/2012 1:32 PM CDT Images from the original note were not included. Physical Therapy Daily Documentation Patient: Rosalba Jimenez Date: 03/05/2012 Date of : 1980 Physician: Roxanna Acosta MD Diagnosis: back pain Cancelled scheduled treatment this date. Meryl Graves [facility] [address] [place] [address] * Meryl Hoffman Physical Therapist - 02/28/2012 7:32 AM CDT Images from the original note were not included. Physical Therapy Daily Documentation Patient: Rosalba Jimenez Date: 02/28/2012 Date of : 1980 Physician: Roxanna Acosta MD Diagnosis: back pain Reason for Therapy: back pain Precautions: None per prescription Next MD Appointment: PRN PN Due: 03/27/12 Script Visits: by script expires 05/22/12 Insurance Visits: by 08/03/12 Summary List: Unchanged Time In: 7:32 a.m. Time Out: 8:32 a.m. Total Timed Treatment: 29 minutes Total Treatment Time: 29 minutes SUBJECTIVE Pain Level Pre-Treatment: 0/10 Pt states she feels therapy so far has been helping. Had a burning pain in low back while driving to PT, however. OBJECTIVE 1) Therapeutic Exercise: Review HEP edu self MET for shotgun technique Pt edu at car on ergnomics, lumbar roll, pushing through L foot on floor board at stoplights HEP Advanced (see handouts)- current: supine LTR to L with upper trunk rotation to R; added 02/28/12: self MET shotgun technique 3) Manual Therapy: Gr II-III central and (R) lateral PA mobs L2-L5 2) Modalities to Address: pain and range of motion US: Continuous 1 MHz, 1.6 W/cm2, 8 minutes, to L3 paraspinals, in supine Objective Measures: L mallolus lower; L ASIS and PSIS lower; sitting trunk ROM: L3 appearing in neutral with trunk flex and ext AROM (pt states she didn't have pain with these motions like previous. ASSESSMENT Pain Level Post-Treatment: 0/10 Progress Towards Goals: Ongoing STG's (Time Frame: 2 weeks) 03/10/12 1. Pt will consistently perform HEP without increase in symptoms. 2. Pt will demo neutral SIJ alignment at start of session. 3. Pt will tolerate trunk ext with mild increased symptoms. LTG's (Time Frame: 4 weeks) 03/24/12 1. Pt will have 10 point decrease in Oswestry functional outcome questionnaire score (denoting improved function). 2. Pt will report 50% reduction in sleep disturbance. 3. Pt will tolerate standing to wash dishes with pain <2/10 in back. 4. Pt will demo neutral lumbar alignment at start of session. Impression: Pt appears to be in neutral spinal alignment, but SIJ mis-aligned again. Overall decrease in pain level. PLAN Continue skilled therapy for back pain. SUZIE Rondon [facility] [address] [place] [address] documented in this encounter Plan of Treatment Upcoming Encounters Date Type Department Care Team (Late st Contact Info) Description 08/23/2024 11:15 AM BACK TUFTER Office Visit [facility] Oncology and Hematology - [place] [address] [place] [address] Michele Smith MD [address] [facility] [address] [place] [address] documented as of this encounter Visit Diagnoses Not on filedocumented in this encounter Care Teams Chemical Process Engineer Relationship Specialty Start Date End Date Roxanna Acosta MD PCP - General Family Practice 02/19/12 documented as of this encounter
--- OUTSIDE RECORDS SUMMARY | 2024-07-24 09:43 | XMS_ITS | Encounter Summary ---
Author Organization [facility] Address [address] [place] [address] Care Team Providers Care Digital Engineer Name Role Phone Roxanna Acosta MD Primary Care Provider [phone] Reason for Visit * Reason Onset Date Comments Medication Refill 02/19/2012 Encounter Details Date Type Department Care Team (Late st Contact Info) Description 02/19/2012 Telephone [facility] REPAIRER HELPER - [address] [address] Enrique Mckinney MD [address] [place] [address] [place] [address] Medication Refill Social History Tobacco Use Types Packs/Day Years [...] Telephone Encounter - Enrique Mckinney MD - 02/19/2012 10:54 AM CDT Spoke with pain. Pt in tears. Finding herself taking more pain meds than before---back sxs getting worse and made worse with cycle. Concern something else going on, since sxs worsening and not improving. Will have pt see family medtoday. * Telephone Encounter - Kim Reese - 02/19/2012 10:50 AM CDT Pt is calling asking for another refill of Percocet. AB documented in this encounter Plan of Treatment Upcoming Encounters Date Type Department Care Team (Late st Contact Info) Description 08/23/2024 11:15 AM MAILING MACHINE HELPER Office Visit [facility] Oncology and Hematology - [place] [address] [facility] [address] [place] [address] Michele Smith MD [address] [facility] [address] [place] [address] documented as of this encounter Visit Diagnoses Not on filedocumented in this encounter Care Teams Digital Engineer Relationship Specialty Start Date End Date Roxanna Acosta MD PCP - General Family Practice 02/19/12 documented as of this encounter
--- OUTSIDE RECORDS SUMMARY | 2024-07-24 09:43 | XMS_ITS | Encounter Summary ---
Author Organization [facility] Address [address] [place] [address] Care Team Providers Care Veneer Gluer Name Role Phone Roxanna Acosta MD Primary Care Provider Reason for Visit * Auth/Cert (Routine) Specialty Diagnoses / Procedures Referred By Contac t Referred To Contact Procedures OH CONIZATION CERVIX,LOOP ELECTRD Referral ID Status Reason Start Date Expiration Date Visits Re quested Visits Authorized [id number] 09/09/2017 10/10/2018 1 1 Encounter Details Date Type Department Care Team (Late st Contact Info) Description 09/23/2017 11:00 AM [facility] - 09/23/2017 12:00 PM [facility] Surgery [facility] Operating Room [address] [place] [address] Enrique Mckinney MD [address] [facility] [address] [place] [address] LOCAL CERVICAL CONE LEEP Surgery Details Date/Time Status Location OR Service Patient Class Case Class Case Type Trauma Case? 09/23/2017 11:00 AM Posted [facility] OR MAIN MP2-O Gynecology Surgical OP/Extended Care Elective No Panel 1 Procedure LRB Anes Op Region Wound Class Comments LOCAL CERVICAL CONE LEEP N/A General Cervix Clean Contaminated-II Surgeon Surgeon Role Service Panel Enrique Mckinney MD Primary Gynecology 1 Case Notes [facility], AUTH# [id number], CPT 44736 documented in this encounter Social History Tobacco [...] Sign Reading Time Taken Comments Blood Pressure 115/61 09/23/2017 11:45 AM [facility] Pulse 89 09/23/2017 11:45 AM [facility] Temperature 36.8 ??C (98.2 ??F) 09/23/2017 11:[address] Respiratory Rate 16 09/23/2017 11:45 AM [facility]OR [facility]YE[facility]ASS Oxygen Saturation 96% 09/23/2017 11:45 AM INSPECTOR [facility]YEGLASS Inhaled Oxygen Concentration - - Weight 65.8 kg (145 lb) 09/23/2017 9:44 AM [facility] Height 157.5 cm (5' 2 ) 09/23/2017 9:44 AM INSPECTOR [facility]YEGLASS Body Mass Index 26.52 09/23/2017 9:44 AM INSPECT[facility]YE[facility]ASS documented in this encounter Discharge Instructions * Attachments The following attachments cannot be sent through Care Everywhere. * LEEP (Loop Electrosurgical Excision Procedure): Post-op (Romansh) documented in this encounter Medications at Time of Discharge Medication Sig Dispensed Refills Start Date End Date ibuprofen (MOTRIN) 600 mg tablet Take 1 Tablet (600 mg) by mouth every 6 hours as needed for Pain, Mild. 20 Tablet 09/23/2017 documented as of this encounter H&P Notes * Enrique Mckinney MD - 09/23/2017 10:57 AM CST Preoperative History & Physical CC: HPI: Rosalba Jimenez is a 37 y.o. 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 Denies back pain, leg swelling. Denies early satiety. ROS: As above. Denies nausea, vomiting, chest pain, shortness of breath, headache, vision symptoms,changes in bowel or bladder, or unintended changes in weight. Past Medical History: Diagnosis Date ??? Patient denies relevant medical history Past Surgical History: Procedure Laterality Date ??? HX TONSILLECTOMY ??? TONSILLECTOMY Social History Social History ??? Marital status: Spouse name: N/A ??? Number of children: N/A ??? Years of education: N/A Occupational History ??? Not Employed Social History Main Topics ??? Smoking status: Never Smoker ??? Smokeless tobacco: Never Used ??? Alcohol use No ??? Drug use: No ??? Sexual activity: Yes Partners: Male Other Topics Concern ??? Not on file Social History Narrative ??? No narrative on file Family History Problem Relation Age of Onset ??? Healthy Father ??? Healthy Mother No current facility-administered medications on file prior to encounter. Current Outpatient Prescriptions on File Prior to Encounter Medication Sig Dispense Refill ??? cyclobenzaprine (FLEXERIL) 10 mg Oral tablet Take 1 Tab by mouth nightly as needed for Spasm. 30 Tab 0 Allergies Allergen Reactions ??? No Known Allergies Physical Exam: BP 115/63 (BP Location: Left arm, Patient Position (BP): Sitting) Pulse 98 Temp 98.5 ??F (36.9 ??C) (Temporal) Resp 16 Ht 5' 2 (1.575 m) Wt 65.8 kg (145 lb) LMP 08/24/2017 SpO2 99% BMI 26.52 kg/m?? General: Well-developed, well-nourished female in NAD HEENT: Normocephalic, atraumatic Neck: Supple, no adenopathy Heart: acyanotic Lungs: unlabored respirations Abdomen: Soft, NT, ND Pelvic: deferred to OR Extremities: No clubbing, cyanosis, or edema ASSESSMENT: 37 y.o. female with HGSIL PLAN: LEEP The risks, benefits, and alternatives of surgery were discussed with the patient, including the risk of bleeding, infection, injury to bowel, bladder, or other pelvic organs, risk of anesthesia, riskof DVT or PE. The patient expressed understanding and wishes to proceed with surgery. [facility] documented in this encounter OR Notes * Operative Report - Enrique Mckinney MD - 09/23/2017 7:52 PM CST [place], [place] [address] Operative Report CSN: [id number] DATE OF SERVICE: 09/23/2017 SURGEON Enrique Mckinney MD PREOPERATIVE DIAGNOSIS TRUMAN 3. POSTOPERATIVE DIAGNOSIS TRUMAN 3. OPERATION NAME LEEP. ANESTHESIA MAC and local 10 mL of 0.5% Sensorcaine with epinephrine. EBL Minimal. COMPLICATIONS None. SPECIMEN Segment of ecto and endocervix. DISPOSITION Stable. DESCRIPTION OF PROCEDURE Risks, benefits, alternatives discussed. Informed consent was obtained. The patient understood the risks of surgery which include, but was not limited to, bleeding, infection, injury to the vagina, failure of procedure to diagnose and/or treat the patient's condition. All patient's questions were answered to her satisfaction. She was taken to the operating room where anesthesia was obtained without difficulty. She was placed in the dorsal lithotomy position, prepped and draped in the usual sterile fashion. Insulated speculum was placed in the patient's vagina where the cervix was visualized. Lugol solution was applied to the cervix with the areas of nonstaining were noted. Using a 20 x 12 loop electrode, a segment of the posterior cervix was made. A second pass with the loop was made on the anterior segment of the cervix. Hemostasis was noted. Using the ball as cautery, the base of the cervix was fulgurated in addition to the border. Monsel's was applied to the cervix. The procedure was terminated. The speculum was removed. The patient was taken out of the lithotomy position, awakened from anesthesia and brought to recovery in stable condition. JLP:MEDSara DID: [id number] Dictated by: Enrique Mckinney MD [facility] * Zuleyma-OP - Irina Lozano RN - 09/23/2017 11:49 AM CST Discharge: Reviewed AVS with patient. Verbalizes understanding. Tolerating PO fluids without difficulty. No complaints of nausea. Vital signs stable. Dr. Mckinney here and talking with patient. Patient discharged in stable condition [facility] documented in this encounter Plan of Treatment Upcoming Encounters Date Type Department Care Team (Late st Contact Info) Description 08/23/2024 11:15 AM INSPECTOR EYEGLASS Office Visit [facility] Oncology and Hematology [facility] [address] [place] [address] Michele Smith MD [address] [facility] [address] [place] [address] documented as of this encounter Procedures Procedure Name Priority Date/Time Associated Diagnosis Comments PATHOLOGY Pathology 09/23/2017 11:22 AM INS[facility]ASS RETIRED LOCAL CERVICAL CONE LEEP 09/23/2017 10:36 AM INSPECT[facility]YEGLASS HGSIL, TRUMAN 3 Case Notes [facility], AUTH# [id number], CPT 44616 POC HEMOGLOBIN Routine 09/23/2017 9:52 AM INSPECTOR [facility]ASS POC , URINE Routine 09/23/2017 9:39 AM [facility] documented in this encounter Results * PATHOLOGY (09/23/2017 11:22 AM INSPECTOR EYEGLASS) CASE REPORT Surgical Pathology Report ? Case: [id number] ? Authorizing Provider: ??Enrique Mckinney MD ? Collected: ? 09/23/2017 11:22 AM ? Ordering Location: ? [facility] Ambulatory Surgery ?? Received: ?09/23/2017 02:03 PM ? [facility] [place] ? Pathologist: ? Nini Bernal MD ? Specimen: ?Cervix, stitch at 12:00 ? 09/25/2017 2:17 PM [facility] FINAL DIAGNOSIS Cervix, loop electrosurgical excision procedure: - High-grade squamous intraepithelial lesion (TRUMAN 3, severe dysplasia). - Tumor is present at endocervical margin (see description). 09/25/2017 2:17 PM [facility] IMEN DESCRIPTION Cervix stitch at 12 o'clock. 09/25/2017 2:17 PM [facility] OPERATIVE PROCEDURE Local cervical cone LEEP. 09/25/2017 2:17 PM [facility] CLINICAL DIAGNOSIS High-grade squamous intraepithelial lesion, TRUMAN III. 09/25/2017 2:17 PM [facility] GROSS DESCRIPTION The specimen is received in a single container labeled Rosalba Jimenez, cervix stitch at 12 o'clock, and consists of a single piece of pink cervical tissue that is 3 x 2.9 x 0.9 cm. There is a central, 1.4-cm oval os. There is a single suture at the 12 o'clock position. The specimen is opened at the 3 o'clock position. There is a distinct endocervical margin. The endocervical margin is inked blue and the remainder of the tissue black. The radially sectioned and entirely submitted as follows: A1 and A2-12 o'clock to 3 o'clock; A3 and A4-3 o'clock to 6 o'clock; A5-6 o'clock to 9 o'clock;A6-9 o'clock to 12 o'clock. MICHAEL/awildak 09/25/2017 2:17 PM [facility] MICROSCOPIC DESCRIPTION The slides are labeled [id number] and Rosalba Jimenez. Sections from the LEEP specimen shows severe squamous dysplasia that extends to the endocervical margin. It also focally involves endocervical glands. There is no unequivocal glandular dysplasia. 09/25/2017 2:17 PM [facility]ASS [facility] COMMENT Special stain and/or immunohistochemical results are interpreted with controls that demonstrate appropriate staining reactions. Note on use of immunocytochemistry reagents: This test was developed and its performance characteristic determined by [facility], Department of Laboratory Medicine. It has [...] WF, WB and WH are performed by [address], [address]. All other case types are performed by [address], [address]. 09/25/2017 2:17 PM [facility]GLASS [facility] Tissue CERVIX UTERI STRUCTURE / Unknown Collection / Unknown 09/23/2017 11:22 AM [facility] 09/23/2017 2:03 PM [facility] Enrique Mckinney MD PATHOLOGY/CYTOLOGY O DAVIDSONERAJANNETTE Performing Organization Address City/State/[facility] Co de Phone Number [facility] CLIA# [id number] [address] [facility] [place] [address] * POC HEMOGLOBIN (09/23/2017 9:52 AM INSPECT[facility]GLASS) HEMOGLOBIN POC 12.1 11.8 - 14.8 g/dL 09/23/2017 10:55 AM [facility]ASS [facility] Blood, capillary 09/23/2017 9:52 AM [facility]ASS 09/23/2017 10:55 AM [facility]ASS Enrique Mckinney MD POINT OF CARE JUAN PABLOSHUN Josafat Performing Organization Address [facility]/ZIP Co de Phone Number [facility]# [id number] [address] [place] [address] * POC , URINE (09/23/2017 9:39 AM INSPECTOR [facility]GLASS) HCG QUAL URINE Negative Negative 09/23/2017 10:55 AM INSPECTOR [facility]GLASS [facility] Urine 09/23/2017 9:39 AM [facility]ASS 09/23/2017 10:55 AM [facility]ASS Enrique Mckinney MD POINT OF CARE SI[place] Maurice Performing Organization Address [facility] Co de Phone Number [facility] [employer] [facility]# [id number] [address] [place] [address] documented in this encounter Visit Diagnoses Not on filedocumented in this encounter Administered Medications Inactive Administered Medications - up to 3 most recent administrations Medication Order MAR Action Action Date Dose Rate Site acetaminophen (TYLENOL) tablet 1,000 mg 1,000 mg, Oral, PRE-PROCEDURE ONCE, 1 dose, Starting on Fri09/23/17 at 0931, Until Fri09/23/17 at 1027, Routine, Pre-op Given 09/23/2017 10:27 AM [facility] 1,000 mg bupivacaine-EPINEPHrin e (SENSORCAINE-EPINEPHRI NE) 0.25 %-1:200,000 injection INTRA-PROCEDURE PRN, Starting on Fri09/23/17 at 1106, Until Fri09/23/17 at 1121, Routine, Intra-op Given 09/23/2017 11:06 AM [facility]GLASS 10 mL ferric subsulfate (ASTRINGYN) topical solution INTRA-PROCEDURE PRN, Starting on Fri09/23/17 at 1109, Until Fri09/23/17 at 1121, Routine, Intra-op Given 09/23/2017 11:09 AM [facility]ASS 1 mL Operative Site lactated Ringers solution IV, at 150 mL/hr, CONTINUOUS, Starting on Fri09/23/17 at 0945, Until Fri09/23/17 at 1410, Routine New Bag 09/23/2017 9:45 AM [facility]GLASS 150 mL/hr potassium iodide (LUGOLS) 5 % solution 0.1 mL 0.1 mL (16 mg), Topical, INTRA-PROCEDURE ONCE, 1 dose, Starting on 09/23/17 at 0932, Until Fri09/23/17 at 1107, Routine, Intra-op Given 09/23/2017 11:07 AM INS[facility]OR [facility]GLASS 1 mL Operative Site documented in this encounter Active and Recently Administered Medications Times are shown in [facility]. Scheduled Medication Order 09/21/2017 09/22/2017 09/23/2017 acetaminophen (TYLENOL) tablet 1,000 mg (COMPLETED) 1,000 mg, Oral, PRE-PROCEDURE ONCE, 1 dose, Starting on Fri09/23/17 at 0931, Until Fri09/23/17 at 1027, Routine, Pre-op 1027 (Given - Provid er: Jennifer Lopez RN) bupivacaine-EPINEPHrine (SENSORCAINE-EPINEPHRINE) 0.25 %-1:200,000 injection 75 mg 75 mg (30 mL), Infiltration, ONE TIME ONLY, 1 dose, On e 09/23/17 at 0945, Routine 0945 (Due) ferric subsulfate (MONSEL'S) topical sloution 8 mL Topical, ONE TIME ONLY, 1 dose, On 09/23/17 at 0945, Routine 0945 (Due) potassium iodide (LUGOLS) 5 % solution 0.1 mL (COMPLETED) 0.1 mL (16 mg), Topical, INTRA-PROCEDURE ONCE, 1 dose, Starting on Fri09/23/17 at 0932, Until 09/23/17 at 1107, Routine, Intra-op 1107 (Given - Provid er: Enrique Mckinney MD) Continuous Medication Order 09/21/2017 09/22/2017 09/23/2017 lactated Ringers solution IV, at 150 mL/hr, CONTINUOUS, Starting on 09/23/17 at 0945, Until Fri09/23/17 at 1410, Routine 0945 (New Bag - Prov ider: Jennifer Lopez RN)1115 (Fluid Volume - Provider: Monie Iraheta CRNA) PRN Medication Order 09/21/2017 09/22/2017 09/23/2017 bupivacaine-EPINEPHrine (SENSORCAINE-EPINEPHRINE) 0.25 %-1:200,000 injection (CANCELED) INTRA-PROCEDURE PRN, Starting on Fri09/23/17 at 1106, Until Fri09/23/17 at 1121, Routine, Intra-op 1106 (Given - Provid er: Enrique Mckinney MD) ferric subsulfate (ASTRINGYN) topical solution (CANCELED) INTRA-PROCEDURE PRN, Starting on Fri09/23/17 at 1109, Until Fri09/23/17 at 1121, Routine, Intra-op 1109 (Given - Provid er: Enrique Mckinney MD) documented in this encounter Care Teams Veneer Gluer Relationship Specialty Start Date End Date Roxanna Acotsa MD PCP - General Family Practice 02/19/12 documented as of this encounter
--- OUTSIDE RECORDS SUMMARY | 2024-07-24 09:43 | XMS_ITS | Encounter Summary ---
Author Organization [facility] Address [address] [place] [address] Care Team Providers Care Center Customer Service Associate Name Role Phone Roxanna Acosta MD Primary Care Provider Reason for Visit * Reason Onset Date Comments Results 02/20/2012 Encounter Details Date Type Department Care Team (Late st Contact Info) Description 02/20/2012 Telephone [facility] Primary Care - [address] [place] [phone] Roxanna Acosta MD [address] [place] [address] Results Social History Tobacco Use Types Packs/Day [...] encounter Miscellaneous Notes * Telephone Encounter - Meg Iyer - 02/20/2012 9:07 AM CDT Patient informed and expressed understanding. * Telephone Encounter - Meg Iyer - 02/20/2012 9:05 AM CDT Message copied by MEG SWANN on FriFeb 20, 2012 9:05 AM ------ Message from: ROXANNA ACOSTA Created: FriFeb 19, 2012 8:04 PM Xray normal , will need to start PT and continue limited pain med, will add flexeril for nightly use to reduce percocet use. Schedule f/u in 2-4 weeks after starting PT if not improved will need evalfor MRI back. Advise avoid use with alcohol, driving and operating dangerous machinery documented in this encounter Plan of Treatment Upcoming Encounters Date Type Department Care Team (Late st Contact Info) Description 08/23/2024 11:15 AM RN LIAISON Office Visit [facility] Oncology and Hematology - [place] [address] [facility] [address] [place] [address] Michele Smith MD [address] [facility] [address] [place] [address] documented as of this encounter Visit Diagnoses Diagnosis Back pain- Primary Backache, unspecified documented in this encounter Care Teams Center Customer Service Associate Relationship Specialty Start Date End Date Roxanna Acosta MD PCP - General Family Practice 02/19/12 documented as of this encounter
--- OUTSIDE RECORDS SUMMARY | 2024-07-24 09:43 | XMS_ITS | Encounter Summary ---
Author Organization [facility] Address [address] [place] [address] Care Team Providers Care Truck Safety Inspector Name Role Phone Barak Greenberg MD Primary Care Provider [phone] Encounter Details Date Type Department Care Team (Latest Contact Info) Description 04/21/2009 4:10 PM CDT - 04/21/2009 11:59 PM CDT Hospital Encounter [facility] Laboratory Services [address] [place] [address] Enrique Mckinney MD [address] [place] [address] Discharge Disposition: Home or Self Care Social History Tobacco Use Types Packs/Day Years Used Date Smoking Tobacco: Never Alcohol Use Standard Drinks/Week Comments No 0 (1 standard drink = 0.6 oz pur e alcohol) Comments Yes Sex and Gender Information Value Date Recorded Sex Assigned at Not on file Gender Identity Not on file Sexual Orientation Not on file documented as of this encounter Plan of Treatment Upcoming Encounters Date Type Department Care Team (Late st Contact Info) Description 08/23/2024 11:15 AM MANAGER OF HEALTH Office Visit [facility] Oncology and Hematology - [place] [address] [facility] [address] [place] [address] Michele Smith MD [address] [facility] [address] [place] [address] documented as of this encounter Procedures Procedure Name Priority Date/Time Associated Diagnosis Comments HIV DETECTION W/REFLX CONFIRMATION Routine 04/21/2009 4:15 PM CDT TSH REFLEXIVE Routine 04/21/2009 4:15 PM CDT State, Incidental HEPATITIS B SURFACE ANTIGEN Routine 04/21/2009 4:15 PM CDT RUBELLA IGG Routine 04/21/2009 4:15 PM CDT CBC WITH DIFFERENTIAL Routine 04/21/2009 4:15 PM CDT RPR Routine 04/21/2009 4:15 PM CDT OBSTETRIC PANEL Routine 04/21/2009 4:15 PM CDT State, Incidental URINE CULTURE Routine 04/21/2009 4:15 PM CDT State, Incidental BLOOD BANK ANTIBODY SCREEN Routine 04/21/2009 4:06 PM CDT TYPE AND SCREEN, Routine 04/21/2009 12:00 AM CDT documented in this encounter Results * (ABNORMAL) CBC WITH DIFFERENTIAL (04/21/2009 4:15 PM CDT) MCH 30.5 27.2 - 32.6 pg [facility] MPV 12.2 9.3 - 12.4 fL [facility] HEMATOCRIT 36.1 35.5 - 44.0 % [facility] RDW-STDEV 44.1 37.1 - 48.7 fL [facility] RBC 4.06 3.90 - 4.90 M/uL [facility] MCHC 34.3 31.5 - 35.5 % [facility] MCV 88.9 82.0 - 99.0 fL [facility] PLATELETS 152 140 - 350 K/uL [facility] HEMOGLOBIN 12.4 11.8 - 14.8 g/dL [facility] RDW 13.6 11.5 - 14.5 % [facility] WBC 5.9 4.0 - 9.8 K/uL [facility] BASOPHILS 0 0 - 2 % [facility] BASOPHILS ABSOLUTE 0.01 0.00 - 0.20 K/uL [facility] MONOCYTES 7 3 - 13 % [facility] MONOCYTE ABSOLUTE 0.40 0.10 - 1.30 K/uL [facility] NEUTROPHILS 72(H) 45 - 70 % [facility] NEUTROPHIL ABSOLUTE 4.23 1.90 - 7.00 K/uL [facility] EOSINOPHILS 1 0 - 7 % [facility] EOSINOPHIL ABSOLUTE 0.05 0.00 - 0.70 K/uL [facility] LYMPHOCYTES 21 16 - 45 % [facility] LYMPHOCYTE ABSOLUTE 1.21 0.70 - 4.50 K/uL [facility] Blood specimen (specimen) 04/21/2009 4:15 PM CDT 04/21/2009 7:34 PM CDT Enrique Mckinney MD HEMATOLOGY ORDERABLE S [facility] CLIA# [id number] [address] [place] [address] * HIV ANTIBODY W/REFLX CONFIRMATION (04/21/2009 4:15 PM CDT) HIV-1 AND 2 ABS NON-REACTI VE NON-REACT BREEZY [facility] Comment: A Nonreactive HIV-1/2 antibody result does not exclude HIV infection since the time frame for seroconversion is variable. If acute HIV infection is suspected, antibody retesting and nucleic acid amplification (HIV DNA/RNA) testing is recommended. ? Lab test performed by: [facility] [id number] [address] MARGOTH CANTRELL MDEffective January 05, 2007, HIV 1/2 Antibody Screen with Reflexed Confirmation has replaced HIV-1 Antibody Screen. HIV-1 Antibody Screen is no longer offered due to lack of available kits from the strategic marketing associate. Blood specimen (specimen) 04/21/2009 4:15 PM CDT 04/21/2009 7:34 PM CDT Enrique Mckinney MD CHEMISTRY ORDERABLES Performing Organization Address [facility] Co de Phone Number [facility] CLIA# [id number] [address] [facility] [place] [address] * HEPATITIS B SURFACE ANTIGEN (04/21/2009 4:15 PM CDT) Pathologist [facility] [place] HEPATITIS B SURFACE AG NON-REACTI VE NON-REACT BREEZY [facility] Comment: ? Lab test performed by: [facility] [address] [address] MARGOTH CANTRELL MD Blood specimen (specimen) 04/21/2009 4:15 PM CDT 04/21/2009 7:34 PM CDT Enrique Mckinney MD CHEMISTRY ORDERABLES Performing Organization Address [facility] Co de Phone Number [facility] CLIA# [id number] [address] [facility] [place] [address] * RUBELLA IGG (04/21/2009 4:15 PM CDT) Pathologist [facility] [place] RUBELLA IGG 2.50 Index [facility] Comment: INDEX ? INTERPRETATION ------ ? < OR = 0.90 ?NEGATIVE 0.91 - 1.09 ?EQUIVOCAL > OR = 1.10 ?POSITIVE THE PRESENCE OF RUBELLA IGG ANTIBODY SUGGESTS IMMUNIZATION OR PAST OR CURRENT INFECTION WITH RUBELLA VIRUS. ? Lab test performed by: [facility] [address] [place] [address] MARGOTH CANTRELL MD Blood specimen (specimen) 04/21/2009 4:15 PM CDT 04/21/2009 7:34 PM CDT Enrique Mckinney MD CHEMISTRY ORDERABLES Performing Organization Address [facility] de Phone Number [facility] CLIA# [id number] [address] [facility] [place] [place] [address] * RPR (04/21/2009 4:15 PM CDT) RPR NON-REACTI VE NON-REACT BREEZY [facility] Comment: ? Lab test performed by: [facility] [address] [address] MARGOTH CANTRELL MD Blood specimen (specimen) 04/21/2009 4:15 PM CDT 04/21/2009 7:34 PM CDT Enrique Mckinney MD CHEMISTRY ORDERABLES Performing Organization Address [facility] de Phone Number [facility] CLIA# [id number] [address] [place] [address] * URINE CULTURE (04/21/2009 4:15 PM CDT) PRELIMINARY REPORT Pending [facility] FINAL REPORT No growth 24 hours [facility] URINE SPECIMEN OBTAINED BY CLEAN CATCH PROCEDURE / Unknown 04/21/2009 4:15 PM CDT 04/21/2009 7:49 PM CDT Enrique Mckinney MD MICROBIOLOGY - GENER AL ORDERABLES Performing Organization Address City/[facility]/ZIP Co de Phone Number [facility] CLIA# [id number] [address] [place] [address] * TSH REFLEXIVE (04/21/2009 4:15 PM CDT) TSH 2.19 0.27 - 4.20 uU/mL [facility] Blood specimen (specimen) 04/21/2009 4:15 PM CDT 04/21/2009 7:34 PM CDT Enrique Mckinney MD CHEMISTRY ORDERABLES Performing Organization Address [facility] Co de Phone Number [facility] CLIA# [id number] [address] [place] [address] * OBSTETRIC PANEL (04/21/2009 4:15 PM CDT) COMMENT See Additional Orderables [facility] Blood specimen (specimen) 04/21/2009 4:15 PM CDT 04/21/2009 7:34 PM CDT Enrique Mckinney MD CHEMISTRY ORDERABLES Performing Organization Address City/[facility]/ZIP Co de Phone Number [facility] CLIA# [id number] [address] [place] [address] * ANTIBODY SCREEN (04/21/2009 4:06 PM CDT) ANTIBODY SCREEN Negative [facility] 04/21/2009 4:06 PM CDT Enrique Mckinney MD BLOOD BANK ORDERABLE S INTERFACE SYSTEM Refer to clinic/hospital department [facility] CLIA# [id number] [address] [place] [address] * TYPE AND SCREEN, (04/21/2009 12:00 AM CDT) HISTORY CHECK History Checked [facility] ABO/RH TYPE O Positive [facility] Blood specimen (specimen) 04/21/2009 Enrique Mckinney MD BLOOD BANK ORDERABLE S INTERFACE SYSTEM Refer to clinic/hospital department [facility] CLIA# [id number] [address] [place] [address] documented in this encounter Visit Diagnoses Diagnosis state, incidental documented in this encounter Care Teams Truck Safety Inspector Relationship Specialty Start Date End Date Barak Greenberg MD [address] [facility] [address] [place] [address] PCP - General 02/17/04 01/14/12 documented as of this encounter
--- OUTSIDE RECORDS SUMMARY | 2024-07-24 09:43 | XMS_ITS | Encounter Summary ---
Author Organization [facility] Address [address] [place] [address] Care Team Providers Care Mental Health Aide Name Role Phone Barak Greenberg MD Primary Care Provider [phone] Reason for Referral * (Routine) - Closed Specialty Diagnoses / Procedures Referred By Contac t Referred To Contact Diagnoses state, incidental Procedures US OB 14+ WKS SINGLE GEST [facility] Bit Gatherer [place] [address] [address] Referral ID Status Reason Start Date Expiration Date Visits Re quested Visits Authorized [id number] Closed 03/30/2009 09/26/2009 1 1 Reason for Visit * Reason Comments Ultrasound Encounter Details Date Type Department Care Team (Late Contact Info) Description 03/30/2009 3:00 PM CDT Office Visit [facility] LEASING REPRESENTATIVE - Medical [place] [address] [address] Bridget [place] State, Incidental (Primary Dx) Social History Tobacco Use Types [...] encounter Progress Notes * Bridget [place] - 03/30/2009 4:11 PM CDT Patient seen in office today and Ultrasound exam performed. documented in this encounter Plan of Treatment Upcoming Encounters Date Type Department Care Team (Late st Contact Info) Description 08/23/2024 11:15 AM PEANUT SALTER Office Visit [facility] Oncology and Hematology - [place] [address] [facility] [address] [place] [address] Michele Smith MD [address] [facility] [address] [place] [address] documented as of this encounter Procedures Procedure Name Priority Date/Time Associated Diagnosis Comments US OB 14+ WKS SINGLE GEST Routine 03/30/2009 State, Incidental documented in this encounter Results * US OB 14+ WKS SINGLE GEST (03/30/2009) Anatomical Region Laterality Modality Pelvis Other Impressions 03/30/2009 Rosalba Jimenez is a 29 y.o. female who presents for mid trimester ultrasound. IMPRESSION: Today's ultrasound reveals ??single fetus in the vertex presentation. Placenta is located anteriorly. ??A male gender is suspected. ??The face, heart, spine, stomach, kidneys, bladder were all imaged. ??The heartbeat measured 144. ??The amniotic fluid volume is 17.6cm. There are no obvious markers of aneuploidy. ??Ultrasound would validate and EDC of 08/11/2009. Repeat as indicated. Clinical correlation is recommended. Enrique Mckinney MD US ORDERABLES documented in this encounter Visit Diagnoses Diagnosis state, incidental- Primary documented in this encounter Care Teams Mental Health Aide Relationship Specialty Start Date End Date Barak Greenberg MD [address] [facility] [address] [place] [address] PCP - General 02/17/04 01/14/12 documented as of this encounter
--- OUTSIDE RECORDS SUMMARY | 2024-07-24 09:43 | XMS_ITS | Encounter Summary ---
Author Organization [facility] Address [address] [place] [address] Care Team Providers Care Investment Broker Name Role Phone Marly Jordan MD Primary Care Provider [phone] Reason for Visit * Reason Onset Date Comments Medication Refill 02/07/2012 Encounter Details Date Type Department Care Team (Late st Contact Info) Description 02/07/2012 Refill [facility] FILLING HAULER - [address] [address] Enrique Mckinney MD [address] [place] [address] [place] [phone] Low back pain (Primary Dx) Social History Tobacco Use Types [...] encounter Miscellaneous Notes * Telephone Encounter - Kim Reese - 02/07/2012 1:13 PM CDT Pt is asking for refill of Percocet. Wants the original dose that Dr. Jordan gave her. Percocet 5-325 mg printed and pt will orange picker machine operator at [facility] office. AB documented in this encounter Plan of Treatment Upcoming Encounters Date Type Department Care Team (Late st Contact Info) Description 08/23/2024 11:15 AM UTILITIES AND MAINTENANCE SUPERVISOR Office Visit [facility] Oncology and Hematology - [place] [address] [facility] [address] [place] [address] Michele Smith MD [address] [facility] [address] [place] [address] documented as of this encounter Visit Diagnoses Diagnosis Low back pain- Primary Lumbago documented in this encounter Care Teams Investment Broker Relationship Specialty Start Date End Date Marly Jordan MD [address] [facility] [address] [place] [address] PCP - General Internal Medicine 01/15/12 02/18/12 documented as of this encounter
--- OUTSIDE RECORDS SUMMARY | 2024-07-24 09:43 | XMS_ITS | Encounter Summary ---
Author Organization [facility] Address [address] [place] [address] Care Team Providers Care Customer Development Manager Name Role Phone Roxanna Acosta MD Primary Care Provider [phone] Reason for Visit * Reason Comments Abnormal Pap Smear Encounter Details Date Type Department Care Team (Latest Contact Info) Description 08/29/2017 1:10 PM BEEF SPLITTER Office Visit [facility] BANDOLEER PACKER - [address] [place] [address] Enrique Mckinney MD [address] [place] [address] [place] [phone] Negative test (Primary Dx); HGSIL (high grade squamous intraepithelial lesion) on Pap smear of cervix Social History Tobacco Use Types Packs/Day Years [...] Pressure - - Pulse - - Temperature - - Respiratory Rate - - Oxygen Saturation - - Inhaled Oxygen Concentration - - Weight 59 kg (130 lb) 08/29/2017 1:15 PM BEEF SPLITTER Height 157.5 cm (5' 2 ) 08/29/2017 1:15 PM BEEF SPLITTER Body Mass Index 23.78 08/29/2017 1:15 PM BEEF SPLITTER documented in this encounter Progress Notes * Enrique Mckinney MD - 08/29/2017 3:31 PM CST colpo for HGSIL. Will need LEEP SPLITTER documented in this encounter Procedure Notes * Enrique Mckinney MD - 08/29/2017 3:34 PM CSTAssociated Order(s): COLPOSCOPY Procedure(s): CA COLPOSCOPY CERVIX BX CERVIX & ENDOCRV CURRETAGE Pre-Procedure Diagnose(s): HGSIL (high grade squamous intraepithelial lesion) on Pap smear of cervix Rosalba Jimenez is a 37 y.o. presenting for a colposcopy. Pt had an abnormal pap smear on 07/2017. Colposcopy was performed of the cervix and vagina. Pap smear was not obtained. Cervix was cleansed with acetic acid. The colposcopy is adequate, there is acetowhite epithelium noted at 2 o'clock. There is mosaicism from 6-9. Biopsy was taken of the cervix at 2,8 12 with ecc. Monsel's paste was applied to provide for hemostasis. Pt tolerated the procedure well. She was allowed to recover in the procedure room, and then to leave. SPLITTER documented in this encounter Miscellaneous Notes * Addendum Note - Chaya Carter - 08/29/2017 1:10 PM CSTAddended by: CHAYA CARTER on: 08/29/2017 03:39 PM Modules accepted: Orders SPLITTER documented in this encounter Plan of Treatment Upcoming Encounters Date Type Department Care Team (Late st Contact Info) Description 08/23/2024 11:15 AM BEEF SPLITTER Office Visit [facility] Oncology and Hematology - [place] [address] [facility] [address] [place] [address] Michele Smith MD [address] [facility] [address] [place] [address] documented as of this encounter Procedures Procedure Name Priority Date/Time Associated Diagnosis Comments POC , URINE Routine 08/29/2017 3:38 PM BEEF SPLITTER Negative test CA COLPOSCOPY CERVIX BX CERVIX & ENDOCRV CURRETAGE Routine 08/29/2017 3:34 PM BEEF SPLITTER HGSIL (high grade squamous intraepithelial lesion) on Pap smear of cervix TISSUE, 2 SPECIMENS Routine 08/29/2017 9:03 AM BEEF SPLITTER PATHOLOGY Routine 08/29/2017 9:03 AM BEEF SPLITTER HGSIL (high grade squamous intraepithelial lesion) on Pap smear of cervix documented in this encounter Results * POC , URINE (08/29/2017 3:38 PM BEEF SPLITTER) HCG QUAL URINE Negative Negative [facility] INTERNAL KIT QC Pass Pass [facility] KIT LOT NUMBER POC [id number] [facility] KIT EXPIRATION DATE POC 01/31/2019 [facility] Urine 08/29/2017 3:38 PM BEEF SPLITTER Enrique Mckinney MD POINT OF CARE TESTIN G [facility] CLIA# [id number] [address] [place] [address] * CA COLPOSCOPY CERVIX BX CERVIX & ENDOCRV CURRETAGE (08/29/2017 3:34 PM BEEF SPLITTER) [facility]ative [facility] - [place] - 08/29/2017 3:34 PM BEEF SPLITTER Enrique Mckinney MD ? 08/29/2017 ??3:36 PM Rosalba Jimenez is a 37 y.o. presenting for a colposcopy. Pt had an abnormal pap smear on 07/2017. Colposcopy was performed of the cervix and vagina. ?? Pap smear was not obtained. Cervix was cleansed with acetic acid. ??The colposcopy is adequate, there is acetowhite epithelium noted at 2 o'clock. There is mosaicism from 6-9. Biopsy was taken of the cervix at 2,8 12 with ecc. ??Monsel's paste was applied to provide for hemostasis. Pt tolerated the procedure well. She was allowed to recover in the procedure room, and then to leave. Enrique Mckinney MD PROCEDURE/MINOR SURG ICAL ORDERABLES KEVIN BANDOLEER PACKER [facility] [place] CLIA# [id number] [address] [facility] [address] [address] * TISSUE, 2 SPECIMENS (08/29/2017 9:03 AM BEEF SPLITTER) PATH A SOURCE [facility] Comment:Cervix, biopsies: PATH A GROSS DESCR Q [facility] Comment: Received in formalin and verified with 2 identifiers. A. ?? cervix BX is 3 henderson tissues ranging in size from 0.4 x 0.2 x 0.1 cm to 0.4 x 0.3 x 0.1 cm submitted in cassette A. B. ?? ECC is a 0.6 x 0.3 x 0.1 cm collection of mucoid material and possible tissue fragments. The specimen may not survive processing. ?? Submitted in cassette B. ?? DJ ??Gross exam(s) performed at: [facility] ??[id number] [facility] [address] ??Zoology Teacher: PARTH HERRERA MD PATH A DIAGNOSIS QUE [facility] Comment: - High grade squamous intraepithelial lesion, severe dysplasia (TRUMAN 3). PATH B SOURCE [facility] Comment:Endocervix, curettag e: PATH B DIAGNOSIS [facility] Comment: - High grade squamous intraepithelial lesion, severe dysplasia (TRUMAN 3). PATH B COMMENT [facility] Comment: Neither biopsy has features diagnostic of stromal invasion. Test Performed at: [place] [address] [place], [place] ??[address] Parth Herrera MD 08/29/2017 9:03 AM BEEF SPLITTER Enrique Mckinney MD PATHOLOGY/CYTOLOGY O RDERABLES Performing Organization Address [facility] Co de Phone Number [employer] [facility] [address] [place] [address] * PATHOLOGY (08/29/2017 9:03 AM BEEF SPLITTER) CLINICAL INFORMATION [facility] Comment:HGSIL on Pap smear PATHOLOGIST [facility] Comment: Baltazar Haas M.D., Board Certified in Anatomic Pathology and Cytopathology. (electronic signature) Test Performed at: [facility] [address] [place], [place] ??[address] Parth Herrera MD Tissue 08/29/2017 9:03 AM BEEF SPLITTER Enrique Mckinney MD PATHOLOGY/CYTOLOGY O RDERAJANNETTE Performing Organization Address [facility] Co de Phone Number [employer] [facility] [address] [place] [address] documented in this encounter Visit Diagnoses Diagnosis Negative test- Primary examination or test, negative result HGSIL (high grade squamous intraepithelial lesion) on Pap smear of cervix documented in this encounter Care Teams Customer Development Manager Relationship Specialty Start Date End Date Roxanna Acosta MD PCP - General Family Practice 02/19/12 documented as of this encounter
--- OUTSIDE RECORDS SUMMARY | 2024-07-24 09:43 | XMS_ITS | Encounter Summary ---
Author Organization [facility] Address [address] [place] [address] Care Team Providers Care Swimming Pool Serviceperson Name Role Phone Barak Greenberg MD Primary Care Provider [phone] Reason for Visit * Reason Comments Routine Visit Encounter Details Date Type Department Care Team (Latest Contact Info) Description 08/09/2009 3:10 PM SUPERVISOR SAMPLE visit [facility] DATA OPERATIONS MANAGER - [address] [address] Enrique Mckinney MD [address] [place] [address] [place] [phone] State, Incidental (Primary Dx) Social History Tobacco [...] Sign Reading Time Taken Comments Blood Pressure 126/70 08/09/2009 3:16 PM SUPERVISOR SAMPLE Pulse - - Temperature - - Respiratory Rate - - Oxygen Saturation - - Inhaled Oxygen Concentration - - Weight 82.6 kg (182 lb) 08/09/2009 3:16 PM SUPERVISOR SAMPLE Height - - Body Mass Index 33.29 01/05/2009 1:10 PM CDT documented in this encounter Progress Notes * Enrique Mckinney MD - 08/09/2009 3:32 PM CST BADW. occ ctx. Denies bleeding, leaking. GBS neg. Labor precautions. Tylenol cold ok. Labor precautions. RVISOR SAMPLE documented in this encounter Plan of Treatment Upcoming Encounters Date Type Department Care Team (Late st Contact Info) Description 08/23/2024 11:15 AM SUPERVISOR SAMPLE Office Visit [facility] Oncology and Hematology - [place] [address] [facility] [address] [place] [address] Michele Smith MD [address] [facility] [address] [place] [address] documented as of this encounter Visit Diagnoses Diagnosis state, incidental- Primary documented in this encounter Care Teams Swimming Pool Serviceperson Relationship Specialty Start Date End Date Barak Greenberg MD [address] [facility] [address] [place] [address] PCP - General 02/17/04 01/14/12 documented as of this encounter
--- OUTSIDE RECORDS SUMMARY | 2024-07-24 09:43 | XMS_ITS | Encounter Summary ---
Author Organization [facility] Address [address] [place] [address] Care Team Providers Care Pe Manager Name Role Phone Marly Jordan MD Primary Care Provider [phone] Reason for Referral * Outpatient Services (Routine) - Closed Specialty Diagnoses / Procedures Referred By Sana jarquin Referred To Contact Diagnoses Pelvic pain in female Procedures US PELVIS + TRANSVAG NON OB Ashley Philippe, Epifanio Damon MD [address] [place] [address] Referral ID Status Reason Start Date Expiration Date Visits Re quested Visits Authorized [id number] Closed 01/15/2012 01/14/2013 1 1 Reason for Visit * Reason Comments Abdominal Pain c/o back pain that b miguelito several weeks ago-now c/o pain to lower abd-reports increased urination-+nausea-also reports headache * Auth/Cert (Routine) - Closed Specialty Diagnoses / Procedures Referred By Sana jarquin Referred To Contact Emergency Medicine [facility] Emergency Dept [address] [place] [address] Referral ID Status Reason Start Date Expiration Date Visits Re quested Visits Authorized [id number] Closed 1 1 Encounter Details Date Type Department Care Team (Late st Contact Info) Description 01/15/2012 5:10 PM CDT - 01/15/2012 7:19 PM CDT Emergency [facility] Emergency Department [address] [place] [address] Epifanio Ramirez Jr., MD [address] [place] [address] Pelvic pain in female Discharge Disposition: Home or Self Care Social [...] Sign Reading Time Taken Comments Blood Pressure 100/65 01/15/2012 7:15 PM CDT Pulse 80 01/15/2012 7:15 PM CDT Temperature 36.9 ??C (98.4 ??F) 01/15/2012 5:03 PM CD T Respiratory Rate 16 01/15/2012 7:15 PM CDT Oxygen Saturation 99% 01/15/2012 7:15 PM CDT Inhaled Oxygen Concentration - - Weight 58.1 kg (128 lb) 01/15/2012 2:06 PM CDT Height - - Body Mass Index 23.41 08/15/2009 11:15 PM PACKAGE CRIMPER documented in this encounter Discharge Instructions * Discharge Instructions* Epifanio Ramirez MD - 01/15/2012 7:04 PM CDT The Emergency Department physician has arranged for you to have the following tests performed tomorrow morning: Ultrasound ? RUQ/Gallbladder Ultrasound (Abdominal Limited) ???Pelvic Ultrasound Diagnosis: ED Physician Signature: Call results to physician listed below: Primary Physician: ?? Call [phone] after 7 a.m. (Friday through Friday) to schedule a mutually agreeable time for your exam. This study is usually done in the morning. ?? The Admitting Department is open Friday through Friday from 5 a.m.- 8 p.m. and Friday 7 a.m. -3:30 p.m. Please register at the Admitting Department located on the ground floor of the [facility]. Please remember to call prior to arriving at the medical center to ensure timeliness of your test and respiratory technician availability. ?? Please remember that your test will be done as promptly as possible. You may have a slight wait as you are being worked into an existing schedule. ?? Please bring this form with you as it provides the appropriate documentation. ?? You must NOT eat or drink anything after midnight (NO BREAKFAST) the night prior to your examination. * Attachments The following attachments cannot be sent through Care Everywhere. * PELVIC PAIN: AFTER YOUR VISIT (POLISH) documented in this encounter Medications at Time of Discharge Medication Sig Dispensed Refills Start Date End Date oxyCODONE-acetaminophen (PERCOCET) 5-325 mg Oral tablet Take 1 Tab by mouth every 4 hours as needed for Pain, Moderate. 15 Tab None 01/15/2012 01/16/2012 documented as of this encounter ED Notes * Tracey Davis RN - 01/15/2012 7:15 PM CDT Patient discharged to home viaambulatory with steady gait with family. Patient states feeling better. Discharge information and education provided to patient. Questions answered, understanding of discharge instruction verbalized. Printed copy given. * Tracey Davis RN - 01/15/2012 6:[address] Ramirez to bedside to discuss results and plan of care. Will continue to monitor. * Tracey Davis RN - 01/15/2012 6:40 PM CDT Pt c/o 05/13 LUCERO, Dr Ramirez made aware, order for morphine received (see MAR). Patient/family has been informed about benefits and any potential clinically significant side effects or other concerns regarding the administration of the drug they have just been given. Pt resting on stretcher with lights off, no active distress, breathing even/unlabored, skin PWD. Will continue to monitor * Tracye Davis RN - 01/15/2012 6:36 PM CDT Morphine administered for back pain as charted in MAR. Patient/family has been informed about benefits and any potential clinically significant side effects or other concerns regarding the administration of the drug they have just been given. Will continue to monitor. * Epifanio Ramirez MD - 01/15/2012 5:30 PM CDT HISTORY OF PRESENT ILLNESS Rosalba Jimenez, a 31 y.o. female presents to the ED with a Chief Complaint of Abdominal Pain HPI Comments: Pt reports pain in back and lower bad for a few weeks. She has urinary frequency. Patient is a 31 y.o. female presenting with abdominal pain. The history is provided by the patient. Abdominal Pain The primary symptoms of the illness include abdominal pain, nausea and dysuria. The primary symptoms of the illness do not include fever, shortness of breath, vomiting or diarrhea. Episode onset: 2-3weeeks. The onset of the illness was gradual. Symptoms associated with the illness do not include chills, constipation or back pain. REVIEW OF SYSTEMS Review of Systems Constitutional: Negative for fever and chills. HENT: Negative for sore throat and trouble swallowing. Eyes: Negative for pain and visual disturbance. Respiratory: Negative for chest tightness and shortness of breath. Cardiovascular: Negative for chest pain and palpitations. Gastrointestinal: Positive for nausea and abdominal pain. Negative for vomiting, diarrhea, constipation and blood in stool. Genitourinary: Positive for dysuria. Negative for difficulty urinating. Musculoskeletal: Negative for myalgias and back pain. Neurological: Negative for dizziness, syncope, weakness and light-headedness. Hematological: Negative for adenopathy. Does not bruise/bleed easily. Psychiatric/Behavioral: Negative for dysphoric mood. The patient is not nervous/anxious. PAST MEDICAL HISTORY REVIEWED Past Medical History Diagnosis Date ??? Patient denies relevant medical history Past Surgical History Procedure Date ??? Tonsillectomy Family History Problem Relation Age of Onset ??? Healthy Father ??? Healthy Mother Social History Other Topics Concern ??? Not on file History Social History Main Topics ??? Smoking status: Never Smoker ??? Smokeless tobacco: Not on file ??? Alcohol Use: No ??? Drug Use: No ??? Sexually Active: Yes -- Male partner(s) Patient Active Problem List Diagnoses Date Noted ??? Well Woman Exam with Routine Gynecological Exam 03/05/2010 ??? Induction, O pos, GBS neg 08/16/2009 ??? Anxiety State, Unspecified 11/03/2006 ??? Acute Serous Otitis Media 05/01/2006 ??? Cellulitis and Abscess of Trunk 12/09/2005 ALLERGIES No known allergies HOME MEDICATIONS Patient's Home Medications New Prescriptions for this Encounter OXYCODONE-ACETAMINOPHEN (PERCOCET) 5-325 MG ORAL TABLET Take 1 Tab by mouth every 4 hours as neededfor Pain, Moderate. Current Home Medications IBUPROFEN (MOTRIN) 600 MG ORAL TABLET Take 1 Tab by mouth every 6 hours as needed for Pain. OXYCODONE-ACETAMINOPHEN (PERCOCET) 5-325 MG ORAL TABLET Take 1 Tab by mouth every 4 hours as neededfor Pain. For Pain Scale 4-6 VIT #[id number] PO Take by mouth. Medications Modified during this Encounter Medications Discontinued during this Encounter PHYSICAL EXAM Initial Vitals BP 01/15/12 1406 119/75 mmHg Pulse 01/15/12 1406 89 Resp 01/15/12 1406 16 Temp 01/15/12 1406 97.9 ??F (36.6 ??C) Temp src 01/15/12 1406 Oral SpO2 01/15/12 1406 100 % Physical Exam Nursing note and vitals reviewed. Constitutional: She is oriented to person, place, and time. She appears well- developed and well-nourished. No distress. HENT: Head: Normocephalic and atraumatic. Mouth/Throat: Oropharynx is clear and moist. Eyes: EOM are normal. Pupils are equal, round, and reactive to light. No scleral icterus. Neck: Normal range of motion. Neck supple. No JVD present. Cardiovascular: Normal rate, regular rhythm, normal heart sounds and intact distal pulses. Pulmonary/Chest: Effort normal and breath sounds normal. No stridor. Abdominal: Soft. Bowel sounds are normal. There is no tenderness. There is no rebound and no guarding. Neurological: She is alert and oriented to person, place, and time. She has normal strength. Skin: Skin is warm and dry. No rash noted. Psychiatric: She has a normal mood and affect. Her behavior is normal. DIAGNOSTICS LAB: Results for orders placed during the hospital encounter of 01/15/12 (from the past 24 hour(s)) URINALYSIS WITH REFLEX CULTURE Component Value Range URINE CULTURE ORDER Not indicated HCG QUALITATIVE, URINE Component Value Range HCG QUAL URINE Negative Negative SPECIFIC GRAVITY UA 1.001 1.001 - 1.035 HCG QUAL URINE COMMENT See Below. URINALYSIS Component Value Range COLOR UA Colorless CLARITY UA Clear Clear SPECIFIC GRAVITY UA 1.001 1.001 - 1.035 PH UA 6.5 5.0 - 8.0 LEUKOCYTE ESTERASE UA Negative Negative NITRITE UA Negative Negative PROTEIN UA Negative Negative GLUCOSE UA Negative Negative KETONES UA Negative Negative UROBILINOGEN UA <1 <=1 (mg/dL) BILIRUBIN UA Negative Negative BLOOD UA Negative Negative CBC WITH DIFFERENTIAL Component Value Range WBC 5.7 4.0 - 9.8 (K/uL) RBC 4.41 3.90 - 4.90 (M/uL) HEMOGLOBIN 11.2 (*) 11.8 - 14.8 (g/dL) HEMATOCRIT 35.6 35.5 - 44.0 (%) MCV 80.7 (*) 82.0 - 99.0 (fL) MCH 25.4 (*) 27.2 - 32.6 (pg) MCHC 31.5 31.5 - 35.5 (%) PLATELETS 172 140 - 350 (K/uL) MPV 11.8 9.3 - 12.4 (fL) RDW 14.2 11.5 - 14.5 (%) RDW-STDEV 41.5 37.1 - 48.7 (fL) NEUTROPHILS 67 45 - 70 (%) LYMPHOCYTES 25 16 - 45 (%) MONOCYTES 7 3 - 13 (%) EOSINOPHILS 1 0 - 7 (%) BASOPHILS 0 0 - 2 (%) NEUTROPHIL ABSOLUTE 3.77 1.90 - 7.00 (K/uL) LYMPHOCYTE ABSOLUTE 1.43 0.70 - 4.50 (K/uL) MONOCYTE ABSOLUTE 0.41 0.10 - 1.30 (K/uL) EOSINOPHIL ABSOLUTE 0.04 0.00 - 0.70 (K/uL) BASOPHILS ABSOLUTE 0.01 0.00 - 0.20 (K/uL) COMPREHENSIVE METABOLIC PANEL Component Value Range SODIUM 139 135 - 145 (mmol/L) POTASSIUM 3.5 3.5 - 4.9 (mmol/L) CHLORIDE 106 96 - 108 (mmol/L) CO2 23 22 - 30 (mmol/L) CALCIUM 9.2 8.6 - 10.2 (mg/dL) BUN 7 6 - 20 (mg/dL) CREATININE 0.58 0.51 - 0.95 (mg/dL) GLUCOSE 95 65 - 99 (mg/dL) TOTAL PROTEIN 7.1 6.3 - 8.6 (g/dL) ALBUMIN 4.6 3.4 - 4.8 (g/dL) BILIRUBIN TOTAL 0.5 0.2 - 1.0 (mg/dL) ALKALINE PHOSPHATASE 39 35 - 104 (U/L) AST 17 12 - 32 (U/L) ALT 10 0 - 31 (U/L) GFR, >60 >=60 (mL/min/1.7 sq meter) GFR >60 >=60 (mL/min/1.7 sq meter) C-REACTIVE PROTEIN Component Value Range CRP <0.1 0.0 - 0.8 (mg/dL) RADIOLOGY: EKG: PROCEDURES Procedures REEVALUATION MEDICAL DECISION MAKING AND PLAN OF CARE . New Prescriptions for this Encounter OXYCODONE-ACETAMINOPHEN (PERCOCET) 5-325 MG ORAL TABLET Take 1 Tab by mouth every 4 hours as neededfor Pain, Moderate. Last vitals BP 103/66 Pulse 83 Temp(Src) 98.4 ??F (36.9 ??C) (Oral) Resp 18 Wt 58.06 kg SpO2 98% ? Yes Coding Pt feeling better with meds. Do not see need for ct at this time given sx and labs. Will set up forpelvic us tomorrow and pt has follow up with Nikki CLINICAL IMPRESSION Encounter Diagnoses Code Name Primary? 625.9 Pelvic pain in female CASE DISCUSSED PATIENT COUNSELING Diagnostics reviewed and questions answered. Diagnosis, treatment options and plan of care discussed with understanding verbalized. DISPOSITION, EDUCATION AND MEDICATION RECONCILIATION Medications reconciled. See after visit summary for patient education on discharged patients. * Tracey Davis RN - 01/15/2012 5:23 PM CDT Agree with triage summary note. Pt to ED with c/o lower back pain onset several weeks ago, now radiating around to bilateral lower abdomen for past few days. +Nausea, no vomiting. +Increased urination, states pain is worse when bladder is full. Denies fevers/chills, denies bowel symptoms. Pt statespain is constant, varies in intensity. +Intermittent LUCERO. Currently resting on stretcher, call lightwithin reach and at bedside. A&Ox4, no active distress, breathing even/unlabored, skin PWD. Denies further needs at present time, will continue to monitor. documented in this encounter Miscellaneous Notes * Patient Instructions - Stl Scanning, Him - 01/16/2012 10:53 AM CDT documented in this encounter Plan of Treatment Upcoming Encounters Date Type Department Care Team (Late st Contact Info) Description 08/23/2024 11:15 AM PACKAGE CRIMPER Office Visit [facility] Oncology and Hematology - [place] [address] [place] [address] Michele Smith MD [address] [place] [address] documented as of this encounter Procedures Procedure Name Priority Date/Time Associated Diagnosis Comments CBC WITH DIFFERENTIAL Stat 01/15/2012 5:40 PM CDT C-REACTIVE PROTEIN Stat 01/15/2012 5: 40 PM CDT COMPREHENSIVE METABOLIC PANEL Stat 01/15/2012 5:40 PM CDT URINALYSIS WITH REFLEX CULTURE Stat 01/15/2012 2:24 PM CDT URINALYSIS W/REFLEX MICROSCOPIC Stat 01/15/2012 2:24 PM CDT HCG QUALITATIVE, URINE Stat 2 2:24 PM CDT documented in this encounter Results * US PELVIS + TRANSVAG NON OB (01/16/2012 1:44 PM CDT) Anatomical Region Laterality Modality Pelvis Ultrasound 01/16/2012 1:18 PM CDT Impressions 01/17/2012 7:41 AM CDT IMPRESSION: Complex cystic mass, right ovary. Prominent endometrial thickness is likely related to the stage of menstrual cycle. Narrative 01/17/2012 7:41 AM CDT EXAM: TRANSABDOMINAL AND TRANSVAGINAL PELVIC ULTRASOUND, 01/16/2012 [...] 5.1 cm. The left ovary is normal. Procedure Note Srinivasa Dumont - 01/17/2012 EXAM: TRANSABDOMINAL AND TRANSVAGINAL PELVIC ULTRASOUND, 01/16/2012 [...] 5.1 cm. The left ovary is normal. IMPRESSION IMPRESSION: Complex cystic mass, right ovary. Prominent endometrial thickness is likely related to the stage of menstrual cycle. Epifanio Ramirez Jr., MD US ORDERABLES * C-REACTIVE PROTEIN (01/15/2012 5:40 PM CDT) Pathologist [facility] CRP <0.1 0.0 - 0.8 mg/dL [facility] Blood specimen (specimen) 01/15/2012 5:40 PM CDT 01/15/2012 5:44 PM CDT Epifanio Ramirez Jr., MD CHEMISTRY ORDERABL ES [facility]# [id number] [address] [facility] [place] [address] [id number] * COMPREHENSIVE METABOLIC PANEL (01/15/2012 5:40 PM CDT) Pathologist [facility] SODIUM 139 135 - 145 mmol/L [facility] POTASSIUM 3.5 3.5 - 4.9 mmol/L [facility] CHLORIDE 106 96 - 108 mmol/L [facility] CO2 23 22 - 30 mmol/L [facility] CALCIUM 9.2 8.6 - 10.2 mg/dL [facility] BUN 7 6 - 20 mg/dL [facility] CREATININE 0.58 0.51 - 0.95 mg/dL [facility] GLUCOSE 95 65 - 99 mg/dL [facility] TOTAL PROTEIN 7.1 6.3 - 8.6 g/dL [facility] ALBUMIN 4.6 3.4 - 4.8 g/dL [facility] BILIRUBIN TOTAL 0.5 0.2 - 1.0 mg/dL [facility] ALKALINE PHOSPHATASE 39 35 - 104 U/L [facility] AST 17 12 - 32 U/L [facility] ALT 10 0 - 31 U/L [facility] GFR, >60 >=60 mL/min/1. 7 sq meter [facility] GFR >60 >=60 mL/min/1. 7 sq meter [facility] Comment: GFR is calculated using the IDMS-Traceable Modification of Diet in Renal Disease (MDRD) Study formula and is only valid for patients 18 years or older. Further interpretative information is available in the Laboratory Services Policy Manual on the [facility] Intranet at: [email or web address]/ Blood specimen (specimen) 01/15/2012 5:40 PM CDT 01/15/2012 5:44 PM CDT Epifanio Ramirez Jr., MD CHEMISTRY ORDERABL ES [facility] [id number] [address] [place] [address] * (ABNORMAL) CBC WITH DIFFERENTIAL (01/15/2012 5:40 PM CDT) WBC 5.7 4.0 - 9.8 K/uL [facility] RBC 4.41 3.90 - 4.90 M/uL [facility] HEMOGLOBIN 11.2(L) 11.8 - 14.8 g/dL [facility] HEMATOCRIT 35.6 35.5 - 44.0 % [facility] MCV 80.7(L) 82.0 - 99.0 fL [facility] - [facility] MCH 25.4(L) 27.2 - 32.6 pg [facility] MCHC 31.5 31.5 - 35.5 % [facility] PLATELETS 172 140 - 350 K/uL [facility] MPV 11.8 9.3 - 12.4 fL [facility] RDW 14.2 11.5 - 14.5 % [facility] RDW-STDEV 41.5 37.1 - 48.7 fL [facility] NEUTROPHILS 67 45 - 70 % [facility] LYMPHOCYTES 25 16 - 45 % [facility] - [facility] MONOCYTES 7 3 - 13 % [facility] - [facility] EOSINOPHILS 1 0 - 7 % [facility] BASOPHILS 0 0 - 2 % [facility] NEUTROPHIL ABSOLUTE 3.77 1.90 - 7.00 K/uL [facility] LYMPHOCYTE ABSOLUTE 1.43 0.70 - 4.50 K/uL [facility] MONOCYTE ABSOLUTE 0.41 0.10 - 1.30 K/uL [facility] EOSINOPHIL ABSOLUTE 0.04 0.00 - 0.70 K/uL [facility] BASOPHILS ABSOLUTE 0.01 0.00 - 0.20 K/uL [facility] Blood specimen (specimen) 01/15/2012 5:40 PM CDT 01/15/2012 5:44 PM CDT Epifanio Ramirez Jr., MD HEMATOLOGY ORDERAB LES [facility] [id number] [address] [facility] [facility] [place] [address] * URINALYSIS (01/15/2012 2:24 PM CDT) COLOR UA Colorless [facility] - [facility] CLARITY UA Clear Clear [facility] - [facility] SPECIFIC GRAVITY UA 1.001 1.001 - 1.035 [facility] - [facility] PH UA 6.5 5.0 - 8.0 [facility] LEUKOCYTE ESTERASE UA Negative Negative [facility] NITRITE UA Negative Negative [facility] . [facility] PROTEIN UA Negative Negative [facility] - . [facility] GLUCOSE UA Negative Negative [facility] - . [facility] KETONES UA Negative Negative [facility] UROBILINOGEN UA <1 <=1 mg/dL [facility] - [facility] BILIRUBIN UA Negative Negative [facility] - [facility] BLOOD UA Negative Negative [facility] - [facility] 01/15/2012 2:24 PM CDT 01/15/2012 2:35 PM CDT Comment:URINE VOIDED Protocol [facility] Ida COBIAN URINE ORDERA BLES Performing Organization Address City/[facility] Co de Phone Number [facility] [employer] [facility]# [id number] [address] [place] [address] [place] [address] * HCG QUALITATIVE, URINE (01/15/2012 2:24 PM CDT) HCG QUAL URINE Negative Negative [facility] - [facility] SPECIFIC GRAVITY UA 1.001 1.001 - 1.035 [facility] - [facility] HCG QUAL URINE COMMENT See Below. [facility] - [facility] Comment:Urine resu lts may be falsely negative due to low specific gravity. Urine specimen (specimen) 01/15/2012 2:24 PM CDT 01/15/2012 2:35 PM CDT Comment:URINE Epifanio Ramirez Jr., MD URINE ORDERABLES Performing Organization Address City/State/[facility] de Phone Number [facility] [id number] [address] [place] [address] * URINALYSIS WITH REFLEX CULTURE (01/15/2012 2:24 PM CDT) URINE CULTURE ORDER Not indicated [facility] Comment: Criteria for a reflex culture include one or more of the following: ??Abnormal nitrite, leukocyte esterase, WBCs or RBCs. ??Lack of qualifying criteria does not exclude the possiblity of a urinary tract infection. ??Dilute urine, drug interference, etc. may decrease the sensitivity of the criteria analytes. Urine, clean catch 01/15/2012 2:24 PM CDT 01/15/2012 2:35 PM CDT Comment:URINE VOIDED Epifanio Ramirez Jr., MD URINE ORDERABLES Performing Organization Address [facility] de Phone Number [facility]# [id number] [address] [place] [address] documented in this encounter Visit Diagnoses Diagnosis Pelvic pain in female Unspecified symptom associated with female genital organs Pelvic pain in female Unspecified symptom associated with female genital organs documented in this encounter Administered Medications Inactive Administered Medications - up to 3 most recent administrations Medication Order MAR Action Action Date Dose Rate Site ketorolac (TORADOL) injection 30 mg 30 mg, IV, ONE TIME ONLY, 1 dose, On Fri01/15/12 at 1730, Stat Given 01/15/2012 5:36 PM CDT 30 mg morphine 5 mg/mL injection 2 mg 2 mg, IV, ONE TIME ONLY, 1 dose, On Fri01/15/12 at 1830, Routine Given 01/15/2012 6:36 PM CDT 2 mg documented in this encounter Active and Recently Administered Medications Times are shown in CDT. Scheduled Medication Order 01/13/2012 01/14/2012 01/15/2012 ketorolac (TORADOL) injection 30 mg (COMPLETED) 30 mg, IV, ONE TIME ONLY, 1 dose, On Fri01/15/12 at 1730, Stat 1736 (Given - Provid er: Tracey Davis RN) morphine 5 mg/mL injection 2 mg (COMPLETED) 2 mg, IV, ONE TIME ONLY, 1 dose, On Fri01/15/12 at 1830, Routine 1836 (Given - Provid er: Tracey Davis RN) documented in this encounter Care Teams Pe Manager Relationship Specialty Start Date End Date Marly Jordan MD [address] [place] [address] PCP - General Internal Medicine 01/15/12 02/18/12 documented as of this encounter
--- OUTSIDE RECORDS SUMMARY | 2024-07-24 09:43 | XMS_ITS | Encounter Summary ---
Author Organization [facility] Address [address] [place] [address] Care Team Providers Care Hedge Fund Trader Name Role Phone Roxanna Acosta MD Primary Care Provider [phone] Encounter Details Date Type Department Care Team (Late Contact Info) Description 09/11/2007 Outpatient Historical [facility] FIRE MARSHAL REFINERY - [address] [place] [address] Enrique Mckinney MD [address] [facility] [address] [place] [address] Social History Tobacco Use Types Packs/Day Years Used Date Smoking Tobacco: Never Assessed Sex and Gender Information Value Date Recorded Sex Assigned at Not on file Gender Identity Not on file Sexual Orientation Not on file documented as of this encounter Plan of Treatment Upcoming Encounters Date Type Department Care Team (Late Contact Info) Description 08/23/2024 11:15 AM LEAF STRIPPER Office Visit [facility] Oncology and Hematology - [place] [address] [facility] [address] [place] [address] Michele Smith MD 2[address] [facility] [address] [place] [address] documented as of this encounter Visit Diagnoses Not on filedocumented in this encounter Care Teams Hedge Fund Trader Relationship Specialty Start Date End Date Roxanna Acosta MD PCP - General Family Practice 02/19/12 documented as of this encounter
--- OUTSIDE RECORDS SUMMARY | 2024-07-24 09:43 | XMS_ITS | Encounter Summary ---
Author Organization [facility] Address [address] [place] [address] Care Team Providers Care Resource Manager Forester Name Role Phone Barak Greenberg MD Primary Care Provider [phone] Reason for Visit * Reason Onset Date Comments Scheduled Induction 08/14/2009 Encounter Details Date Type Department Care Team (Late st Contact Info) Description 08/14/2009 Telephone [facility] LIFE EDUCATOR - Medical [address] [address] Enrique Mckinney MD [address] [address] Scheduled Induction Social History Tobacco Use Types Packs/Day Years [...] encounter Miscellaneous Notes * Telephone Encounter - Vianey Hairston - 08/14/2009 3:21 PM CST Per Danika in L&D, pt's MIL is scheduled for tomorrow, 08/15/2009--2nd evening; sp with pt--notified of MIL and reviewed instructions. analysis faxed to l&d. MERVAT notified. 08/14/09 3:15pm JR E SCENE SPECIALIST documented in this encounter Plan of Treatment Upcoming Encounters Date Type Department Care Team (Late st Contact Info) Description 08/23/2024 11:15 AM CRIME SCENE SPECIALIST Office Visit [facility] Oncology and Hematology - [place] [address] [facility] 200 [place] [address] Michele Smith MD 2[address] [facility] [address] [place] [address] documented as of this encounter Visit Diagnoses Not on filedocumented in this encounter Care Teams Resource Manager Forester Relationship Specialty Start Date End Date Barak Greenberg MD [address] [facility] [address] [place] [address] PCP - General 02/17/04 01/14/12 documented as of this encounter
--- OUTSIDE RECORDS SUMMARY | 2024-07-24 09:43 | XMS_ITS | Encounter Summary ---
Author Organization [facility] Address [address] [place] [address] Care Team Providers Care Cellar Pumper Name Role Phone Roxanna Acosta MD Primary Care Provider Encounter Details Date Type Department Care Team (Latest Contact Info) Description 01/05/2009 Outpatient Historical [facility], [address] Enrique Mckinney MD [address] [place] [address] Routine Gynecological Examination Social History Tobacco Use Types Packs/Day Years [...] st Contact Info) Description 08/23/2024 11:15 AM BULK SEALER OPERATOR Office Visit [facility] Oncology and Hematology - [place] [address] [facility] 200 [place] [address] Michele Smith MD 2[address] [facility] [address] [place] [address] documented as of this encounter Visit Diagnoses Diagnosis Routine gynecological examination documented in this encounter Care Teams Cellar Pumper Relationship Specialty Start Date End Date Roxanna Acosta MD PCP - General Family Practice 02/19/12 documented as of this encounter
--- OUTSIDE RECORDS SUMMARY | 2024-07-24 09:43 | XMS_ITS | Encounter Summary ---
Author Organization [employer] Address [address] [place] [address] Care Team Providers Care Model And Mold Maker Plaster Name Role Phone Roxanna Acosta MD Primary Care Provider Reason for Visit * Outpatient Services (Routine) - Closed Specialty Diagnoses / Procedures Referred By Sana t Referred To Contact Physical Therapy Diagnoses Back pain Procedures PT EVAL AND TREAT Roxanna Acosta MD [address] [place] [address] [facility] [place] [address] [facility] [address] [place] [address] Referral ID Status Reason Start Date Expiration Date Visits Re quested Visits Authorized [id number] Closed 02/20/2012 08/03/2012 60 60 Encounter Details Date Type Department Care Team (Late st Contact Info) Description 02/25/2012 11:17 AM CDT - 02/25/2012 11:59 PM CDT Hospital Encounter [facility] [place] [address] [facility] [address] [place] [address] Roxanna Acosta MD [address] [place] [address] Mreyl Graves, Physical Therapist Discharge Disposition: Home or [...] of this encounter Progress Notes * Meryl Hoffman, Physical Therapist - 02/25/2012 11:37 AM CDT Images from the original note were not included. Physical Therapy Initial Evaluation Patient: Rosalba Jimenez Date: 02/25/2012 Date of : 1980 Physician: Roxanna Acosta MD Diagnosis: back pain Onset Date: 6 weeks ago Reason for Therapy: back pain Precautions: None per prescription Next MD Appointment: MELIZA MORRIS Due: 03/27/12 Script Visits: by script expires 05/22/12 Insurance Visits: by 08/03/12 Time In: 11:35 a.m. Time Out: 12:35 p.m. Total Timed Treatment: 28 minutes Total Treatment Time: 60 minutes SUBJECTIVE History of Injury: Pt states she has always had back pain the day before starting period. In past 6weeks, she has noted an intensifying back pain that worsened during period. She denies an incident that brought on pain. Went to see OB, who dismissed that this was related to cycle. PCP prescribed muscle relaxer and pain med. Pt states muscle relaxer helps her sleep better. Doesn't take a lot of meds due to being a mother of 4. 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 Prior Pain Level: 0/10 Diagnostic Testing: x-rays (-) Past Medical History Diagnosis Date ??? Patient denies relevant medical history Past Surgical History Procedure Date ??? Tonsillectomy ??? Hx tonsillectomy Allergies Allergen Reactions ??? No Known Allergies Current Outpatient Prescriptions on File Prior to Encounter Medication Sig Dispense Refill ??? oxyCODONE-acetaminophen (PERCOCET) 5-325 mg Oral tablet Take 1 Tab by mouth every 8 hours as needed for Pain, Moderate. 30 Tab 0 ??? cyclobenzaprine (FLEXERIL) 10 mg Oral tablet Take 1 Tab by mouth nightly as needed for Spasm. 30 Tab 0 Pain: Best - 0/10 Worst - 10/10 Currently - 0/10 Description/Location: low back in spine and radiates out from spine Alleviating Factors: percocet and muscle relaxer Aggravating Factors: pain at night Functional Limitations: sleep disturbance (wakes ~ every 2 hrs), pain with prolonged sitting, sitting up straight, pain with prolonged driving, pain standing and doing dishes Functional Outcomes Survey: Oswestry Score = 26% Patient Goal: get rid of back pain OBJECTIVE Appearance: slender petite female in no apparent distress; pt changing positions frequently, crossing legs frequently Posture: sitting in waiting room in chair: with B legs maximally ER and wrapped around contralateral pelvis, sitting on 1 foot with back flexed and rotated slightly Gait: unremarkable Trunk ROM Comments Flexion WNLs Mild increased low back pain at end range Extension Min dec* Increased back pain Right Left Side Bending Min dec* WNLs Increased back pain with R SB; mild back pain at end range on L Rotation WNLs WNLs Strength Comments Right Left Hip Flexion 4+/5 4+/5 Hip Extension 4/5 3/5 Hip Abduction 5/5* 4/5* * = pain (back) Knee Extension 5/5 5/5 Knee Flexion 5/5 5/5 Flexibility: Hamstring Length - (B) min dec. Piriformis Length - (B) WNLs. Hip Flexor Length - (B) WNLs. Prone Knee Flexion - (B) WNLs. Manual Exam: L Special Tests: Straight Leg Raise - (-). JOSÉ MIGUEL (-), passive hip flexion to 90 with IR and add (-), prone knee bend (-); increased back pain with side-lying passive hip abd (B) Treatment: Initial eval, MET L anterior innom, MET FRS(L) - then MET FRS (R) @ L3, US: Continuous 1MHz, 1.6 W/cm2, 8 minutes, to L3 paraspinals, in side-lying edu HEP HEP Initiated (see handouts): L PSIS elevated, L ASIS lower (compared to R); FRS (R) @ L3 (noted inext) Patient demonstrated full competency of HEP and was without questions. Response to Treatment: pt's pelvis realigned after anter innom MET, but no decrease in symptoms with trunk ROM; pt having high pain with 1st FRS MET, then after switching to 2nd MET: less pain, but continued symptoms with MET. Fuentes US well ASSESSMENT Pain Level Post-Treatment: 09/13 Rehab Diagnosis: back pain Rehab Potential: Good with active participation in plan of care. Patient Problems: ROM limitations, strength limitations, pain and knowledge deficit Impression: Pt presents with R rotated lumbar vertebra. Unable to effect change with MET today, butmay loosen with AROM trunk L rotation and continued manual therapy attempts. GOALS: The following goals were developed in conjunction with the patient. STG's (Time Frame: 2 weeks) 03/10/12 Pt will consistently perform HEP without increase in symptoms. Pt will demo neutral SIJ alignment at start of session. Pt will tolerate trunk ext with mild increased symptoms. LTG's (Time Frame: 4 weeks) 03/24/12 Pt will have 10 point decrease in Oswestry functional outcome questionnaire score (denoting improved function). Pt will report 50% reduction in sleep disturbance. Pt will tolerate standing to wash dishes with pain <2/10 in back. Pt will demo neutral lumbar alignment at start of session. PLAN Patient to be seen 2 times per week for 4 weeks for the following skilled therapeutic interventionsto address limitations in ADL's and function: HEP Instruction, Strengthening, Flexibility, Manual Therapy, Core Stabilization, Posture/Body Mechanics Education, Mechanical Traction and Modalities Thank you for this referral. Meryl Graves, [facility] [address] [place] [address] documented in this encounter Plan of Treatment Upcoming Encounters Date Type Department Care Team (Late st Contact Info) Description 08/23/2024 11:15 AM BAGGING MACHINE OPERATOR Office Visit [facility] Oncology and Hematology - [place] [address] [place] [address] Michele Smith MD 2[address] [facility] [address] [place] [address] documented as of this encounter Visit Diagnoses Not on filedocumented in this encounter Care Teams Model And Mold Maker Plaster Relationship Specialty Start Date End Date Roxanna Acosta MD PCP - General Family Practice 02/19/12 documented as of this encounter
--- OUTSIDE RECORDS SUMMARY | 2024-07-24 09:43 | XMS_ITS | Encounter Summary ---
Author Organization [facility] Address [address] [place] [address] Care Team Providers Care Melter Supervisor Oxygen Furnace Name Role Phone Marly Jordan MD Primary Care Provider [phone] Reason for Visit * Reason Comments Back Pain abd pain Encounter Details Date Type Department Care Team (Late st Contact Info) Description 01/17/2012 10:00 AM CDT Office Visit [facility] VACUUM APPLICATOR OPERATOR - [address] [address] Enrique Mckinney MD [address] [place] [address] [place] [address] Back pain; Other and unspecified ovarian cyst Social History Tobacco Use Types Packs/Day Years [...] Sign Reading Time Taken Comments Blood Pressure 122/66 01/17/2012 9:53 AM CDT Pulse - - Temperature - - Respiratory Rate - - Oxygen Saturation - - Inhaled Oxygen Concentration - - Weight 59 kg (130 lb) 01/17/2012 9:53 AM CDT Height 157.5 cm (5' 2 ) 01/17/2012 9:53 AM CDT Body Mass Index 23.78 01/17/2012 9:53 AM CDT documented in this encounter Progress Notes * Enrique Mckinney MD - 01/17/2012 1:01 PM CDT Subjective: Rosalba Jimenez is a 31 y.o. female who presents for initial evaluation of low back problems. Symptomshave been present for a few days and include pain in low back and lower pelvis (aching, tight band in character; 7/10 in severity). Initial inciting event: none. Symptoms are worst: all day. Alleviating factors identifiable by patient are sitting, medication (narc/nsaids). Exacerbating factors identifiable by patient are running, bending backwards and MENSES. Treatments so far initiated by patient: none, pain meds Previous lower back problems: none. Previous workup: none. Previous treatments: none. Current Functional Limitations: 1. How long can patient sit? indef 2. How long can patient stand? indef 3. How long can patient walk? Able to exercise 4. How much weight can patient lift? 30 lbs 5. How long have activities been limited to this degree? Few days 'Red Flags' for Fracture: 1. Recent history of major trauma: no 2. Minor trauma or strenuous lifting in older or potentially osteoporotic patient: no 3. History of chronic corticosteroid therapy: no ???Red Flags' for Neoplasm or Infection: 1. Age over 50 or under 20: no 2. History of cancer, servando. breast, lung, prostate: no 3. Recent fever/chills: no 4. Recent unexplained weight loss: no 5. Recent bacterial infection: no 6. IV drug use: no 7. Immunosuppression (from meds, HIV, etc.): no 8. Pain worse when supine or at night: no ???Red Flags' Cauda Equina Syndrome: 1. Complaint of saddle anesthesia: no 2. Recent onset of bladder dysfunction, servando. retention: no 3. Severe or progressive LE neurologic deficit: no Patient Active Problem List Diagnoses Date Noted ??? Anxiety State, Unspecified 11/03/2006 Allergies Allergen Reactions ??? No Known Allergies Past Medical History Diagnosis Date ??? Patient denies relevant medical history Past Surgical History Procedure Date ??? Tonsillectomy ??? Hx tonsillectomy Family History Problem Relation Age of Onset ??? Healthy Father ??? Healthy Mother History Substance Use Topics ??? Smoking status: Never Smoker ??? Smokeless tobacco: Never Used ??? Alcohol Use: No Review of Systems Constitutional: negative Gastrointestinal: negative Genitourinary:positive for frequency and nocturia Musculoskeletal:negative Neurological: negative Objective: BP 122/66 Ht 5' 2 (1.575 m) Wt 130 lb (58.968 kg) BMI 23.78 kg/m2 LMP 12/24/2011 General: alert, in no distress Body habitus: not obese Gait: normal Visible deformity? no Leg muscle asymmetry? no Tender spinous processes? no Tender back or buttock? no Left Right Pain with piriformis stretch no no Strength Testing: Quadriceps (L4) 5/5 5/5 Hamstrings (L5 and S1) 5/5 5/5 Ankle dorsiflexion (L4 and L5) 5/5 5/5 Ankle plantarflexion (S1) 5/5 5/5 Great toe dorsiflexion (L4 and L5) 5/5 5/5 Toe flexors (S1) 5/5 5/5 Reflexes: Ankle jerk (S1): Knee jerk (L4): Sensory Exam (Light Touch): Medial foot (L4): Mid-dorsal foot (L5): Lateral foot (S1): Straight Leg Raise Testing: Degrees raised: 90 90 Symptoms Evoked? no no Assessment: nonspecific acute low back pain Ovarian cyst Plan: 1. Patient Education (???YES??? indicates topic was discussed): The vast majority of patients with acute low back problems, including those with symptoms in the lower extremities, spontaneously recover activity tolerance within one month. yes In the absence of signs of dangerous conditions, there is no need for special imaging studies, which will show significant abnormalities in around 30% of normal people anyway. Yes, other than pelvic USN Proper lifting technique will help speed recovery and avoid recurrences (hold objects close to bodywhile lifting them; avoid twisting, bending, or reaching while lifting). yes Aerobic conditioning with walking, stationary biking, swimming, or light jogging may help prevent debilitation from activity and can usually be started within the first two weeks of sx. May increase symptoms slightly at first. Yes--cont to stay active 2. Reduction in activity (recc'd max 2-4d for pts severely limited by sx): no 3. Exercise: Aerobic: yes - Trunk strengthening (recc'd only after 2 weeks or more): no Advised to contact us if prescribed exercise seems to exacerbate sx: no 4. Manipulation (most effective in first month of sx): no 5. Medications: Acetaminophen: yes - prn NSAIDs: yes - prn Muscle relaxants no Opioid analgesics: thru ER 6. Further Workup Plain x-rays of lumbosacral spine (this or CT recc'd if red flags for spinal fracture or neoplasm):no CT or MRI of lumbosacral spine (recc'd if red flags for spinal fracture and > 10d or multiple sites of pain; or if cauda equina, tumor, or infection strongly suspected): no CBC, ESR, and urinalysis (recc'd if red flags for neoplasm/infection): yes and ordered thru ER Immediate orthopedic or neurosurgical consultation (recc'd if red flags for cauda equina syndrome):no 7. Follow up: Return visit in 2 month(s) for WWE/PAP/repeat USN Arrange additional treatment or follow up at that time. Unsure if cyst related to pain. Declines ocp's, surg at this time. Expectant management for now. Report worsening sxs documented in this encounter Plan of Treatment Upcoming Encounters Date Type Department Care Team (Late st Contact Info) Description 08/23/2024 11:15 AM MANAGER DOCUMENT Office Visit [facility] Oncology and Hematology - [place] [address] [facility] 200 [place] [address] Michele Smith MD [address] [facility] [address] [place] [address] documented as of this encounter Visit Diagnoses Diagnosis Back pain Backache, unspecified Other and unspecified ovarian cyst documented in this encounter Care Teams Melter Supervisor Oxygen Furnace Relationship Specialty Start Date End Date Marly Jordan MD [address] [facility] [address] [place] [address] PCP - General Internal Medicine 01/15/12 02/18/12 documented as of this encounter
--- OUTSIDE RECORDS SUMMARY | 2024-07-24 09:43 | XMS_ITS | Encounter Summary ---
Author Organization [facility] Address [address] [place] [address] Care Team Providers Care Proposal Engineer Name Role Phone Marly Jordan MD Primary Care Provider [phone] Reason for Visit * Reason Onset Date Comments Results 01/17/2012 Encounter Details Date Type Department Care Team (Late st Contact Info) Description 01/17/2012 Telephone [facility] - [facility] [address] [facility] [address] [place] [address] Marly Jordan MD [address] [facility] [address] [place] [address] Results Social History Tobacco Use Types Packs/Day [...] Miscellaneous Notes * Telephone Encounter - Bere Handy - 01/17/2012 10:23 AM CDT Patient came to office, got these results from obgyn, states they will follow her care on this * Telephone Encounter - Cindy Duran - 01/17/2012 10:05 AM CDT VM full Left office# for pt to call * Telephone Encounter - Marly Jordan MD - 01/17/2012 9:57 AM CDT Cystic mass on the right ovary - she needs to have follow up with her PLASTER MOLDER - is she still in pain? * Telephone Encounter - Kim Patel - 01/17/2012 9:37 AM CDT Calling for US results. documented in this encounter Plan of Treatment Upcoming Encounters Date Type Department Care Team (Late st Contact Info) Description 08/23/2024 11:15 AM THERAPIST'S ASSISTANT Office Visit [facility] Oncology and Hematology - [place] 2[address] [facility] [address] [place] [phone] Michele Smith MD [address] [facility] [address] [place] [address] documented as of this encounter Visit Diagnoses Not on filedocumented in this encounter Care Teams Proposal Engineer Relationship Specialty Start Date End Date Marly Jordan MD [address] [place] [address] PCP - General Internal Medicine 01/15/12 02/18/12 documented as of this encounter
--- OUTSIDE RECORDS SUMMARY | 2024-07-24 09:43 | XMS_ITS | Encounter Summary ---
Author Organization [facility] Address [address] [place] [address] Care Team Providers Care Leather Goods I Assembler Name Role Phone Barak Greenberg MD Primary Care Provider [phone] Reason for Visit * Reason Onset Date Comments Results 03/06/2010 Encounter Details Date Type Department Care Team (Late st Contact Info) Description 03/06/2010 Telephone [facility] ENTREPRENEURSHIP PROGRAM DIRECTOR - Medical [address] [address] Enrique Mckinney MD [address] [place] [address] Results Social History Tobacco Use Types [...] encounter Miscellaneous Notes * Telephone Encounter - Beatrice Way - 03/06/2010 9:43 AM CDT Pt aware. Tg * Telephone Encounter - Kim Reese - 03/06/2010 9:31 AM CDT Pt's phone states that mailbox is full. AB * Telephone Encounter - Enrique Mckinney MD - 03/06/2010 5:49 AM CDT hcg is neg. Please call. documented in this encounter Plan of Treatment Upcoming Encounters Date Type Department Care Team (Late st Contact Info) Description 08/23/2024 11:15 AM MASH FILTER OPERATOR Office Visit [facility] Oncology and Hematology [facility] [address] [facility] [address] [place] [address] Michele Smith MD 2[address] [facility] [address] [place] [address] documented as of this encounter Visit Diagnoses Not on filedocumented in this encounter Care Teams Leather Goods I Assembler Relationship Specialty Start Date End Date Barak Greenberg MD [address] [facility] [address] [place] [address] PCP - General 02/17/04 01/14/12 documented as of this encounter
--- OUTSIDE RECORDS SUMMARY | 2024-07-24 09:43 | XMS_ITS | Encounter Summary ---
Author Organization [facility] Address [address] [place] [address] Care Team Providers Care Hat Body Sorter Name Role Phone Marly Jordan MD Primary Care Provider [phone] Reason for Visit * Reason Onset Date Comments Medication Refill 01/20/2012 Encounter Details Date Type Department Care Team (Late Contact Info) Description 01/20/2012 Refill [facility] ENDOCRINOLOGIST - Medical [address] [address] Enrique Mckinney MD [address] [place] [address] Social History Tobacco Use Types Packs/Day [...] encounter Miscellaneous Notes * Telephone Encounter - Shila Springer - 01/20/2012 11:16 AM CDT Pt will picking machine operator at [facility] office. documented in this encounter Plan of Treatment Upcoming Encounters Date Type Department Care Team (Late st Contact Info) Description 08/23/2024 11:15 AM LASER PRINTING OPERATOR Office Visit [facility] Oncology and Hematology - [place] [address] [facility] [address] [place] [address] Michele Smith MD [address] [facility] [address] [place] [address] documented as of this encounter Visit Diagnoses Not on filedocumented in this encounter Care Teams Hat Body Sorter Relationship Specialty Start Date End Date Marly Jordan MD [address] [facility] [address] [place] [address] PCP - General Internal Medicine 01/15/12 02/18/12 documented as of this encounter
--- OUTSIDE RECORDS SUMMARY | 2024-07-24 09:43 | XMS_ITS | Encounter Summary ---
Author Organization [facility] Address [address] [place] [address] Care Team Providers Care Mash Preparatory Operator Name Role Phone Roxanna Acosta MD Primary Care Provider [phone] Reason for Visit * Reason Onset Date Comments Results 09/02/2017 Encounter Details Date Type Department Care Team (Late st Contact Info) Description 09/02/2017 Telephone [facility] HAND TUFTER - Medical [address] [address] Enrique Mckinney MD [address] [place] [phone] Results Social History Tobacco Use Types [...] Telephone Encounter - Enrique Mckinney MD - 09/02/2017 4:06 PM CST SURGERY SCHEDULING REQUEST OFFICE LOCATION: (please indicate in which office the patient is usually seen) TORREZ PROCEDURE: LEEP DIAGNOSIS: HGSIL/TRUMAN 3 PREFERRED LOCATION: [facility] PREFERRED DATE: @ PT REQUEST TIME NEEDED: 30 min TOTAL TIME OUT OF OFFICE: ANESTHESIA: (please indicate all that apply) LOCAL and MAC PLEASE SPECIFY: SURGICAL OP/EXTENDED CARE (23HR) HEALTH RISK: ANY OTHER INFORMATION: (indicate EDC for OB patients) ET ROW MARKER * Telephone Encounter - Enrique Mckinney MD - 09/02/2017 4:05 PM CST Spoke with pt. Aware of colpo bx's. TRUMAN 3. Will need LEEP. Pt aware ET ROW MARKER documented in this encounter Plan of Treatment Upcoming Encounters Date Type Department Care Team (Late st Contact Info) Description 08/23/2024 11:15 AM EYELET ROW MARKER Office Visit [facility] Oncology and Hematology - [place] [address] [facility] [address] [place] [phone] Michele Smith MD [address] [facility] [address] [place] [address] documented as of this encounter Visit Diagnoses Not on filedocumented in this encounter Care Teams Mash Preparatory Operator Relationship Specialty Start Date End Date Roxanna Acosta MD PCP - General Family Practice 02/19/12 documented as of this encounter
--- OUTSIDE RECORDS SUMMARY | 2024-07-24 09:43 | XMS_ITS | Encounter Summary ---
Author Organization [facility] Address [address] [place] [address] Care Team Providers Care Kiln Drawer Name Role Phone Roxanna Acosta MD Primary Care Provider Reason for Visit * Reason Comments Back Pain Encounter Details Date Type Department Care Team (Late st Contact Info) Description 02/19/2012 3:50 PM CDT Office Visit [facility] Primary Care [address] [place] [phone] Roxanna Acosta MD [address] [place] [address] S/P tonsillectomy; Low back pain Social History Tobacco Use Types Packs/Day [...] Sign Reading Time Taken Comments Blood Pressure 106/70 02/19/2012 3:45 PM CDT Pulse 80 02/19/2012 3:45 PM CDT Temperature 37.2 ??C (99 ??F) 02/19/2012 3:45 PM CDT Respiratory Rate - - Oxygen Saturation - - Inhaled Oxygen Concentration - - Weight 58.6 kg (129 lb 1.6 oz) 02/19/2012 3:45 P M CDT Height 157.5 cm (5' 2 ) 02/19/2012 3:45 PM CDT Body Mass Index 23.61 02/19/2012 3:45 PM CDT documented in this encounter Progress Notes * Roxanna Acosta MD - 02/19/2012 4:12 PM CDT HISTORY OF PRESENT ILLNESS Rosalba Jimenez, a 31 y.o. female. Back Pain This is a new problem. The current episode started more than 1 week ago (She states for the past month worsening back pain. She has gone to the ER for this and had u/s which showed a cyst. She has been f/u with AGRICULTURAL SYSTEMS SPECIALIST and not imrpoved. 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 No injury or trauma.). The problem occurs constantly. The problem has been gradually worsening. The pain is present in the lumbar spine (across lower back). The pain is at a severity of 7/10 (during the night a 10 . She states screams in pain). The pain is moderate. The pain is the same all the time. Pertinent negatives include no chest pain, no fever, no numbness, no abdominal pain, no perianal numbness, no bladder incontinence, no dysuria, no pelvic pain, no leg pain, no paresthesias, no paresis, no tingling and no weakness. Treatments tried: percocet. The treatment provided moderate relief. She states pain severe throughout the night and she feels worse in the am. The worse the pain the more frequent she urinates. She urinates 5-6 x a night. No blood in urine. No fevers. No urinary or bowel incontinence. Pain in lower back and gradually builds throughout the day. No xrays or therapy. She is a G 5P4. She states no relief with alieve or tylenol . FMHX Father: Arthritis at 70, no sibling problems. REVIEW OF SYSTEMS Review of Systems Constitutional: Positive for activity change. Negative for fever, chills and fatigue. Respiratory: Negative for cough, chest tightness and shortness of breath. Cardiovascular: Negative for chest pain, palpitations and leg swelling. Gastrointestinal: Negative for abdominal pain. Genitourinary: Negative for bladder incontinence, dysuria and pelvic pain. Musculoskeletal: Positive for back pain. Negative for myalgias, joint swelling, arthralgias and gait problem. Neurological: Negative for tingling, weakness, numbness and paresthesias. PHYSICAL EXAM BP 106/70 Pulse 80 Temp 99 ??F (37.2 ??C) Ht 5' 2 (1.575 m) Wt 129 lb 1.6 oz (58.559 kg) BMI 23.61 kg/m2 Physical Exam Vitals reviewed. Constitutional: She is oriented to person, place, and time. She appears well- developed and well-nourished. No distress. HENT: Mouth/Throat: Oropharynx is clear and moist. Neck: Normal range of motion. Neck supple. No thyromegaly present. Cardiovascular: Normal rate, regular rhythm, normal heart sounds and intact distal pulses. No murmur heard. Pulmonary/Chest: Effort normal and breath sounds normal. No respiratory distress. Abdominal: Soft. Bowel sounds are normal. There is no tenderness. Musculoskeletal: Lumbar back: She exhibits tenderness and pain. She exhibits normal range of motion and normal pulse. Lymphadenopathy: She has no cervical adenopathy. Neurological: She is alert and oriented to person, place, and time. She has normal strength. No sensory deficit. Coordination and gait normal. Reflex Scores: Patellar reflexes are 2+ on the right side and 2+ on the left side. Achilles reflexes are 2+ on the right side and 2+ on the left side. Negative straight leg test b/l. ASSESSMENT and PLAN: 1. S/P tonsillectomy (V45.89) 2. Low back pain (724.2) oxyCODONE-acetaminophen (PERCOCET) 5-325 mg Oral tablet, XR LUMBAR SPINE 4+ VW Worsening back pain chronic >6 weeks. Will check xray. Will f/u with radiology interpretation and inform patient. WArm compress, ROM exercises. Limited refill on percocet advised motrin q8hrs reserve percocet for pain not relieved. Pending xray results. PT eval and treatment.. D/W pt side effects, usage and efficacy of meds. Advised avoid use with alcohol, driving and operating dangerous machinery documented in this encounter Plan of Treatment Upcoming Encounters Date Type Department Care Team (Late st Contact Info) Description 08/23/2024 11:15 AM IMPROVEMENT NURSE Office Visit [facility] Oncology and Hematology - [place] [address] [facility] [place] [address] [place] [address] Michele Smith MD [address] [facility] [address] [place] [address] documented as of this encounter Results * XR LUMBAR SPINE 4+ VW (02/19/2012 4:34 PM CDT) Anatomical Region Laterality Modality Spine Computed Radiogr aphy 02/19/2012 4:27 PM CDT Impressions 02/19/2012 4:42 PM CDT IMPRESSION: ?? Negative exam of the lumbar spine Narrative 02/19/2012 4:42 PM CDT LUMBAR SPINE, five views HISTORY: ??Back Pain FINDINGS: ??The lumbar spine is normally aligned without evidence of subluxation. ??The vertebral body heights are preserved. ??No fractures and no evidence of spondylolysis are identified. ?? Procedure Note Zaria Elliott MD - 02/19/2012 LUMBAR SPINE, five views HISTORY: Back Pain FINDINGS: The lumbar spine is normally aligned without evidence of subluxation. The vertebral body heights are preserved. No fractures and no evidence of spondylolysis are identified. IMPRESSION IMPRESSION: Negative exam of the lumbar spine Roxanna Acosta MD DIAGNOSTIC IMAGING O RDERABLES documented in this encounter Visit Diagnoses Diagnosis S/P tonsillectomy Other postprocedural status Low back pain Lumbago Low back pain Lumbago documented in this encounter Care Teams Kiln Drawer Relationship Specialty Start Date End Date Roxanna Acosta MD PCP - General Family Practice 02/19/12 documented as of this encounter
--- OUTSIDE RECORDS SUMMARY | 2024-07-24 09:43 | XMS_ITS | Encounter Summary ---
Author Organization [facility] Address [address] [place] [address] Care Team Providers Care Through Operator Name Role Phone Roxanna Acosta MD Primary Care Provider [phone] Reason for Visit * Reason Onset Date Comments Results 09/29/2017 Encounter Details Date Type Department Care Team (Late st Contact Info) Description 09/29/2017 Telephone [facility] EDUCATION PROGRAM ASSOCIATE - Medical [address] [address] Enrique Mckinney MD [address] [place] [phone] Results Social History Tobacco Use Types [...] * Telephone Encounter - Halle Chung - 09/29/2017 9:29 AM CST Patient notified. Next appt 10/10/17. NOMETER REPAIRER * Telephone Encounter - Halle Chung - 09/29/2017 9:25 AM CST ----- Message from Enrique Mckinney MD sent at 09/26/2017 3:58 PM CHRONOMETER REPAIRER ----- genesis 3 on LEEP. No cancer. Please call NOMETER REPAIRER documented in this encounter Plan of Treatment Upcoming Encounters Date Type Department Care Team (Late st Contact Info) Description 08/23/2024 11:15 AM CHRONOMETER REPAIRER Office Visit [facility] Oncology and Hematology - [place]ad [address] [facility] [address] [place] [address] Michele Smith MD [address] [facility] [address] [place] [address] documented as of this encounter Visit Diagnoses Not on filedocumented in this encounter Care Teams Through Operator Relationship Specialty Start Date End Date Roxanna Acosta MD PCP - General Family Practice 02/19/12 documented as of this encounter
--- OUTSIDE RECORDS SUMMARY | 2024-07-24 09:43 | XMS_ITS | Encounter Summary ---
Author Organization [facility] Address [address] [place] [address] Care Team Providers Care Tv Production Assistant Name Role Phone Barak Greenberg MD Primary Care Provider [phone] Reason for Visit * Reason Comments Routine Visit Encounter Details Date Type Department Care Team (Latest Contact Info) Description 08/14/2009 2:00 PM PLANNING CONSULTANT visit [facility] SADDLE TREE STITCHER - Medical [address] [address] Enrique Mckinney MD [address] [place] [phone] State, Incidental (Primary Dx) Social History [...] Sign Reading Time Taken Comments Blood Pressure 128/80 08/14/2009 2:43 PM PLANNING CONSULTANT Pulse - - Temperature - - Respiratory Rate - - Oxygen Saturation - - Inhaled Oxygen Concentration - - Weight 81.6 kg (180 lb) 08/14/2009 2:43 PM PLANNING CONSULTANT Height - - Body Mass Index 32.92 01/05/2009 1:10 PM CDT documented in this encounter Progress Notes * Enrique Mckinney MD - 08/14/2009 3:07 PM CST BADW. occ ctx. Denies bleeding, leaking. Induce this week. NING CONSULTANT documented in this encounter Plan of Treatment Upcoming Encounters Date Type Department Care Team (Late st Contact Info) Description 08/23/2024 11:15 AM PLANNING CONSULTANT Office Visit [facility] Oncology and Hematology - Farzad [address] [facility] [address] [place] [address] Michele Smith MD [address] [facility] [address] [place] [address] documented as of this encounter Visit Diagnoses Diagnosis state, incidental- Primary documented in this encounter Care Teams Tv Production Assistant Relationship Specialty Start Date End Date Barak Greenberg MD [address] [facility] [address] [place] [address] PCP - General 02/17/04 01/14/12 documented as of this encounter
--- OUTSIDE RECORDS SUMMARY | 2024-07-24 09:43 | XMS_ITS | Encounter Summary ---
Author Organization [facility] Address [address] [place] [address] Care Team Providers Care Last Sawyer Name Role Phone Roxanna Acosta MD Primary Care Provider Reason for Visit * Reason Onset Date Comments Surgery 09/03/2017 Encounter Details Date Type Department Care Team (Late st Contact Info) Description 09/03/2017 Telephone [facility] PRIVATE HOUSEHOLD WORKER - Medical [address] [address] Enrique Mckinney MD [address] [place] [phone] Surgery Social History Tobacco Use Types [...] * Telephone Encounter - Sherice Kee - 09/09/2017 9:56 AM CST Sp with pt, confirmed procedure details. Letter mailed to pt, verified address. Pt to call the office with any questions/concerns and if letter is not received; questions answered; pt verbalized understanding. 09/09/17 955A KU CONTROL SERVICE REPRESENTATIVE * Telephone Encounter - Sherice Kee - 09/08/2017 10:40 AM CST Sp with pt, reviewed procedure and discussed possible dates to schedule; tentatively to schedule on09/23/17; will set up the case and call her back with confirmation; questions answered; pt verbalized understanding. 09/08/17 1040a KU CONTROL SERVICE REPRESENTATIVE * Telephone Encounter - Sherice Kee - 09/03/2017 9:12 AM CST PROVIDER: MERVAT PROVIDER PROVIDER LOCATION: : 1980 PROCEDURE LOCATION: [facility] CASE #: [id number] PROCEDURE DATE / TIME: 09/23 @ 1100a INSURANCE COMPANY: [facility] ID # / GROUP #: [id number] INSURANCE PHONE #: [phone] PRECERT: JASWINDER -- APPROVAL # [id number] SP WITH: KATHLEEN DATE/TIME: 09/03 BENEFITS: ACTIVE SP WITH: DATE/TIME: 09/03 IN EPIC: [X ] CALENDAR: [ X] DOC NOTIFIED: [X ] LETTER MAILED: [ X] SPREADSHEET: [ ] PT NOTIFIED: [ X] ORDERS FAXED: [ X] REFERRAL ADDED: [X ] BMI: 24 (59kg; 130lb) POST OP: 10/10 @ 1110a OR RISKS (param all that apply): DELIA [ ] ISOLATION [ ] LATEX ALLERGY [ ] MALIGNANT HYPERTHERMIA [ ] SURGERY SCHEDULING REQUEST OFFICE LOCATION: (please indicate in which office the patient is usually seen) LORE PROCEDURE: LEEP [address] DIAGNOSIS: HGSIL/TRUMAN 3 R87.613; D06.9 PREFERRED LOCATION: [facility] PREFERRED DATE: @ PT REQUEST TIME NEEDED: 30 min TOTAL TIME OUT OF OFFICE: ANESTHESIA: (please indicate all that apply) LOCAL and MAC PLEASE SPECIFY: SURGICAL OP/EXTENDED CARE (23HR)?? HEALTH RISK: ANY OTHER INFORMATION: (indicate EDC for OB patients) CONTROL SERVICE REPRESENTATIVE documented in this encounter Plan of Treatment Upcoming Encounters Date Type Department Care Team (Late st Contact Info) Description 08/23/2024 11:15 AM PEST CONTROL SERVICE REPRESENTATIVE Office Visit [facility] Oncology and Hematology - Farzad [address] [facility] [address] [place] [address] Michele Smith MD [address] [facility] [address] [place] [address] documented as of this encounter Visit Diagnoses Not on filedocumented in this encounter Care Teams Last Sawyer Relationship Specialty Start Date End Date Roxanna Acosta MD PCP - General Family Practice 02/19/12 documented as of this encounter
--- OUTSIDE RECORDS SUMMARY | 2024-07-24 09:43 | XMS_ITS | Encounter Summary ---
Author Organization [facility] Address [address] [place] [address] Care Team Providers Care Digging Machine Operator Name Role Phone Barak Greenberg MD Primary Care Provider [phone] Reason for Visit * Reason Onset Date Comments Question 08/15/2009 Encounter Details Date Type Department Care Team (Late st Contact Info) Description 08/15/2009 Telephone [facility] ITALIAN TEACHER - Medical [address] [address] Enrique Mckinney MD [address] [place] [phone] Question Social History Tobacco Use Types Packs/Day [...] Telephone Encounter - Enrique Mckinney MD - 08/15/2009 11:10 AM CST Question about induction answered. MEL TENDER * Telephone Encounter - Erin Nichole - 08/15/2009 10:48 AM CST Patient calling, has questions about induction tonight, patient declines to ask questions of triagenbobbi or Brianna, would like callback from Dr. CROWELL only. Patient states she will be available at call back number all day. MEL TENDER documented in this encounter Plan of Treatment Upcoming Encounters Date Type Department Care Team (Late st Contact Info) Description 08/23/2024 11:15 AM TROMMEL TENDER Office Visit [facility] Oncology and Hematology - Farzad [address] [facility] [address] [place] [address] Michele Smith MD [address] [facility] [address] [place] [address] documented as of this encounter Visit Diagnoses Not on filedocumented in this encounter Care Teams Digging Machine Operator Relationship Specialty Start Date End Date Barak Greenberg MD [address] [facility] [address] [place] [address] PCP - General 02/17/04 01/14/12 documented as of this encounter
--- OUTSIDE RECORDS SUMMARY | 2024-07-24 09:43 | XMS_ITS | Encounter Summary ---
Author Organization [facility] Address [address] [place] [address] Care Team Providers Care Coal Or Ore Controller Name Role Phone Roxanna Acosta MD Primary Care Provider Encounter Details Date Type Department Care Team (Latest Contact Info) Description 10/05/2007 Outpatient Historical [facility], [address] Epifanio Jones MD NO ADDRESS ON FILE Supervision of Other Normal Social History Tobacco Use Types Packs/Day Years Used Date Smoking Tobacco: Never Assessed Sex and Gender Information Value Date Recorded Sex Assigned at Not on file Gender Identity Not on file Sexual Orientation Not on file documented as of this encounter Plan of Treatment Upcoming Encounters Date Type Department Care Team (Late st Contact Info) Description 08/23/2024 11:15 AM BOILER REPAIRMAN Office Visit [facility] Oncology and Hematology - Farzad [address] [facility] [address] [place] [address] Michele Smith MD [address] [facility] [address] [place] [address] documented as of this encounter Procedures Procedure Name Priority Date/Time Associated Diagnosis Comments (BROTH-ENRICHED) GROUP B STREP DETECTION Routine 10/05/2007 5:22 PM BOILER REPAIRMAN documented in this encounter Results * STREPTOCOCCUS GROUP B CULTURE (10/05/2007 5:22 PM BOILER REPAIRMAN) PRELIMINARY REPORT Pending INTERFACE SYSTEM FINAL REPORT No Streptococcus Group B isolated. INTERFACE SYSTEM Vaginal 10/05/2007 5:22 PM BOILER REPAIRMAN 10/05/2007 5:26 PM BOILER REPAIRMAN Epifanio Jones MD MICROBIOLOGY - GENER AL ORDERABLES INTERFACE SYSTEM Refer to clinic/hospital department documented in this encounter Visit Diagnoses Diagnosis Supervision of other normal documented in this encounter Care Teams Coal Or Ore Controller Relationship Specialty Start Date End Date Roxanna Acosta MD PCP - General Family Practice 02/19/12 documented as of this encounter
--- OUTSIDE RECORDS SUMMARY | 2024-07-24 09:43 | XMS_ITS | Encounter Summary ---
Author Organization [facility] Address [address] [place] [address] Care Team Providers Care Surgical Rn Name Role Phone Roxanna Acosta MD Primary Care Provider Reason for Visit * Auth/Cert (Routine) Specialty Diagnoses / Procedures Referred By Contac t Referred To Contact Procedures CT CONIZATION CERVIX,LOOP ELECTRD Referral ID Status Reason Start Date Expiration Date Visits Re quested Visits Authorized [id number] 09/09/2017 10/10/2018 1 1 Encounter Details Date Type Department Care Team (Latest Contact Info) Description 09/23/2017 9:23 AM DUST BOX WORKER - 09/23/2017 12:10 PM [facility] Hospital Encounter [facility] Ambulatory Surgery Ctr S [facility] [address] [place] [address] Enrique Mckinney MD [address] [facility] [address] [place] [address] Discharge Disposition: Home or Self Care [...] Comments Blood Pressure 115/61 09/23/2017 11:45 AM DUST BOX WORKER Pulse 89 09/23/2017 11:45 AM DUST BOX WORKER Temperature 36.8 ??C (98.2 ??F) 09/23/2017 11:[address] Respiratory Rate 16 09/23/2017 11:45 AM DUST BOX WORKER Oxygen Saturation 96% 09/23/2017 11:45 AM DUST BOX WORKER Inhaled Oxygen Concentration - - Weight 65.8 kg (145 lb) 09/23/2017 9:44 AM DUST BOX WORKER Height 157.5 cm (5' 2 ) 09/23/2017 9:44 AM DUST BOX WORKER Body Mass Index 26.52 09/23/2017 9:44 AM DUST BOX WORKER documented in this encounter Discharge Instructions * Attachments The following attachments cannot be sent through Care Everywhere. * LEEP (Loop Electrosurgical Excision Procedure): Post-op (Palestinian) documented in this encounter Medications at Time [...] understanding and wishes to proceed with surgery. BOX WORKER documented in this encounter OR Notes * Operative Report - Enrique Mckinney MD - 09/23/2017 7:52 PM CST [place], [place] [address] Operative Report CSN: [id number] DATE OF SERVICE: 09/23/2017 SURGEON Enrique Mckinney [...] and brought to recovery in stable condition. JLP:MEDQ DID: [id number] Dictated by: Enrique Mckinney MD BOX WORKER * Zuleyma-OP - Irina Lozano RN - 09/23/2017 11:49 AM CST Discharge: Reviewed AVS with patient. Verbalizes understanding. Tolerating PO fluids without difficulty. No complaints of nausea. Vital signs stable. Dr. Mckinney here and talking with patient. Patient discharged in stable condition BOX WORKER documented in this encounter Plan of Treatment Upcoming Encounters Date Type Department Care Team (Late st Contact Info) Description 08/23/2024 11:15 AM DUST BOX WORKER Office Visit [facility] Oncology and Hematology - [place] [address] [facility] [address] [place] [address] Michele Smith MD [address] [facility] [address] [place] [address] documented as of this encounter Procedures Procedure Name Priority Date/Time Associated Diagnosis Comments PATHOLOGY Pathology 09/23/2017 11:22 AM DUST BOX WORKER RETIRED LOCAL CERVICAL CONE LEEP 09/23/2017 10:36 AM DUST BOX WORKER HGSIL, TRUMAN 3 Case Notes [facility], AUTH# [id number], CPT 44972 POC HEMOGLOBIN Routine 09/23/2017 9:52 AM DUST BOX WORKER POC , URINE Routine 09/23/2017 9:39 AM DUST BOX WORKER documented in this encounter Results * PATHOLOGY (09/23/2017 11:22 AM DUST BOX WORKER) CASE REPORT Surgical Pathology Report ? Case: [id number] ? Authorizing Provider: ??Enrique Mckinney MD ? Collected: ? 09/23/2017 11:22 AM ? Ordering Location: ? [facility] ?? Received: ?09/23/2017 02:03 PM ? Ctr [facility] [place] ? Pathologist: ? Nini Bernal MD ? Specimen: ?Cervix, stitch at 12:00 ? 09/25/2017 2:17 PM [facility] FINAL DIAGNOSIS Cervix, loop electrosurgical excision procedure: - High-grade squamous intraepithelial lesion (TRUMAN 3, severe dysplasia). - Tumor is present at endocervical margin (see description). 09/25/2017 2:17 PM [facility] IMEN DESCRIPTION Cervix stitch at 12 o'clock. 09/25/2017 2:17 PM [facility] OPERATIVE PROCEDURE Local cervical cone LEEP. 09/25/2017 2:17 PM [facility] CLINICAL DIAGNOSIS High-grade squamous intraepithelial lesion, TRUMAN III. 09/25/2017 2:17 PM [facility] GROSS DESCRIPTION The specimen is received in [...] to 9 o'clock;A6-9 o'clock to 12 o'clock. [facility]/radha 09/25/2017 2:17 PM [facility] MICROSCOPIC DESCRIPTION The slides are labeled [id number] and Rosalba Jimenez. Sections from the LEEP specimen shows severe squamous dysplasia that extends to the endocervical margin. It also focally involves endocervical glands. There is no unequivocal glandular dysplasia. 09/25/2017 2:17 PM [facility] COMMENT Special stain and/or immunohistochemical results are interpreted with controls that demonstrate appropriate staining reactions. Note on use of immunocytochemistry reagents: This test was developed and its performance characteristic determined by [facility], Department of Laboratory Medicine. [...] WF, WB and WH are performed by [address], [address]. All other case types are performed by [facility] [address] [facility], [address]. 09/25/2017 2:17 PM DUST BOX WORKER [facility] Tissue CERVIX UTERI STRUCTURE / Unknown Collection / Unknown 09/23/2017 11:22 AM DUST BOX WORKER 09/23/2017 2:03 PM DUST BOX WORKER Enrique Mckinney MD PATHOLOGY/CYTOLOGY O RDERABLES Performing Organization Address City/[facility]/ZIP Co de Phone Number [facility] CLIA# [id number] [address] [facility] [place] [address] * POC HEMOGLOBIN (09/23/2017 9:52 AM DUST BOX WORKER) HEMOGLOBIN POC 12.1 11.8 - 14.8 g/dL 09/23/2017 10:55 AM DUST BOX WORKER [facility] Blood, capillary 09/23/2017 9:52 AM DUST BOX WORKER 09/23/2017 10:55 AM DUST BOX WORKER Enrique Mckinney MD POINT OF CARE TESTIN G Performing Organization Address [facility]/ZIP Co de Phone Number [facility] CLIA# [id number] [address] [facility] [place] [address] * POC , URINE (09/23/2017 9:39 AM DUST BOX WORKER) HCG QUAL URINE Negative Negative 09/23/2017 10:55 AM DUST BOX WORKER [facility] Urine 09/23/2017 9:39 AM DUST BOX WORKER 09/23/2017 10:55 AM DUST BOX WORKER Enrique Mckinney MD POINT OF CARE [place] [facility] CLIA# [id number] [address] [place] [address] documented in this encounter Visit Diagnoses Not on filedocumented in this encounter Administered Medications Inactive Administered Medications - up to 3 most recent administrations Medication Order MAR Action Action Date Dose Rate Site acetaminophen (TYLENOL) tablet 1,000 mg 1,000 mg, Oral, PRE-PROCEDURE ONCE, 1 dose, Starting on Fri09/23/17 at 0931, Until Fri09/23/17 at 1027, Routine, Pre-op Given 09/23/2017 10:27 AM DUST BOX WORKER 1,000 mg lactated Ringers solution IV, at 150 mL/hr, CONTINUOUS, Starting on Fri09/23/17 at 0945, Until e 09/23/17 at 1410, Routine New Bag 09/23/2017 9:45 AM DUST BOX WORKER 150 mL /hr documented in this encounter Active and Recently Administered Medications Times are shown in DUST BOX WORKER. Scheduled Medication Order 09/21/2017 09/22/2017 09/23/2017 acetaminophen (TYLENOL) tablet 1,000 mg (COMPLETED) 1,000 mg, Oral, PRE-PROCEDURE ONCE, 1 dose, Starting on Fri09/23/17 at 0931, Until e 09/23/17 at 1027, Routine, Pre-op 1027 (Given - Provid er: Jennifer Lopez RN) bupivacaine-EPINEPHrine (SENSORCAINE-EPINEPHRINE) 0.25 %-1:200,000 injection 75 mg 75 mg (30 mL), Infiltration, ONE TIME ONLY, 1 dose, On 09/23/17 at 0945, Routine 0945 (Due) ferric subsulfate (MONSEL'S) topical sloution 8 mL Topical, ONE TIME ONLY, 1 dose, On e 09/23/17 at 0945, Routine 0945 (Due) potassium iodide (LUGOLS) 5 % solution 0.1 mL (COMPLETED) 0.1 mL (16 mg), Topical, INTRA-PROCEDURE ONCE, 1 dose, Starting on Fri09/23/17 at 0932, Until Fri09/23/17 at 1107, Routine, Intra-op 1107 (Given - [...] MD) documented in this encounter Care Teams Surgical Rn Relationship Specialty Start Date End Date Roxanna Acosta MD PCP - General Family Practice 02/19/12 documented as of this encounter
--- OUTSIDE RECORDS SUMMARY | 2024-07-24 09:43 | XMS_ITS | Encounter Summary ---
Author Organization [facility] Address [address] [place] [address] Care Team Providers Care Kardex Clerk Name Role Phone Roxanna Acosta MD Primary Care Provider Encounter Details Date Type Department Care Team (Late Contact Info) Description 09/08/2007 Outpatient Historical [facility] PREDATORY ANIMAL EXTERMINATOR - [address] [place] [address] Enrique Mckinney MD [address] [facility] [address] [place] [address] Social History Tobacco Use Types Packs/Day Years Used Date Smoking Tobacco: Never Assessed Sex and Gender Information Value Date Recorded Sex Assigned at Not on file Gender Identity Not on file Sexual Orientation Not on file documented as of this encounter Plan of Treatment Upcoming Encounters Date Type Department Care Team (Late Contact Info) Description 08/23/2024 11:15 AM ELECTRIC LOCOMOTIVE CRANE OPERATOR Office Visit [facility] Oncology and Hematology - [place] [address] [facility] [address] [place] [address] Michele Smith MD [address] [facility] [address] [place] [address] documented as of this encounter Visit Diagnoses Not on filedocumented in this encounter Care Teams Kardex Clerk Relationship Specialty Start Date End Date Roxanna Acosta MD PCP - General Family Practice 02/19/12 documented as of this encounter
--- OUTSIDE RECORDS SUMMARY | 2024-07-24 09:43 | XMS_ITS | Encounter Summary ---
Author Organization [facility] Address [address] [place] [address] Care Team Providers Care Molder Closed Molds Name Role Phone Roxanna Acosta MD Primary Care Provider [phone] Encounter Details Date Type Department Care Team (Late st Contact Info) Description 05/19/2012 Chart Note [facility] Services [address] [place] [address] Kyleigh Davis, Physical Therapist Social History Tobacco Use Types Packs/Day Years Used Date Smoking Tobacco: Never Smokeless Tobacco: Never Alcohol Use Standard Drinks/Week Comments No 0 (1 standard drink = 0.6 oz pur e alcohol) Sex and Gender Information Value Date Recorded Sex Assigned at Not on file Gender Identity Not on file Sexual Orientation Not on file documented as of this encounter Progress Notes * Kyleigh Davis, Physical Therapist - 05/19/2012 3:57 PM CDT Images from the original note were not included. Physical Therapy Discharge Summary Patient: Rosalba Jimenez Date: 05/19/2012 Date of : 1980 Physician: Roxanna Acosta Diagnosis: back pain Rosalba Jimenez was seen from 02/25/12 to 03/06/12 for a total of 3 visits with 2 cancellations and 0 no shows. This patient did not return for further therapy visits following the last session noted above, therefore a complete re-evaluation of status was not completed. Treatments consisted of: HEP Instruction, Posture/Body Mechanics and Neuromuscular Re-Education Therapeutic Exercise to increase Strength, ROM and Stablization. Manual Treatments - Joint Mobilization Modalities - Ultrasound Objective Measurements: see initial evaluation on 02/25/12 The patient discharged from therapy secondary to noncompliance. Please contact me if you have any questions. Thank you for this referral. Kyleigh Davis [facility] Therapy Services [address] [place] [address]. [address] [place] [id number] documented in this encounter Plan of Treatment Upcoming Encounters Date Type Department Care Team (Late st Contact Info) Description 08/23/2024 11:15 AM HOT BRAIDER Office Visit [facility] Oncology and Hematology - [place] [address] [facility] [address] [place] [address] Michele Smith MD [address] [facility] [address] [place] [address] documented as of this encounter Visit Diagnoses Not on filedocumented in this encounter Care Teams Molder Closed Molds Relationship Specialty Start Date End Date Roxanna Acosta MD PCP - General Family Practice 02/19/12 documented as of this encounter
--- OUTSIDE RECORDS SUMMARY | 2024-07-24 09:43 | XMS_ITS | Encounter Summary ---
Author Organization [facility] Address [address] [place] [address] Care Team Providers Care Lapel Padder Name Role Phone Barak Greenberg MD Primary Care Provider [phone] Reason for Visit * Reason Onset Date Comments Erroneous encounter-disregard 03/06/2010 Encounter Details Date Type Department Care Team (Late Contact Info) Description 03/06/2010 Telephone [facility] PIT BOSS - [address] [place] [address] Enrique Mckinney MD [address] [facility] [address] [place] [address] Erroneous encounter-disregard Social History Tobacco Use Types Packs/Day Years [...] (Late Contact Info) Description 08/23/2024 11:15 AM SUPERVISOR STOCK RANCH Office Visit [facility] Oncology and Hematology - [place] [address] [facility] [address] [place] [address] Michele Smith MD [address] [facility] [address] [place] [address] documented as of this encounter Visit Diagnoses Not on filedocumented in this encounter Care Teams Lapel Padder Relationship Specialty Start Date End Date Barak Greenberg MD [address] [address] PCP - General 02/17/04 01/14/12 documented as of this encounter
--- OUTSIDE RECORDS SUMMARY | 2024-07-24 09:43 | XMS_ITS | Encounter Summary ---
Author Organization [facility] Address [address] [place] [address] Care Team Providers Care Senior Production Manager Name Role Phone Barak Greenberg MD Primary Care Provider [phone] Encounter Details Date Type Department Care Team (Latest Contact Info) Description 07/20/2009 3:30 PM BANKING CENTER MANAGER - 07/20/2009 11:[address] [facility] Hospital Encounter [facility] Laboratory Support Services S [facility] [address] [place] [address] Enrique Mckinney MD [address] [facility] Suite [facility] [address] Discharge Disposition: Home or Self Care [...] st Contact Info) Description 08/23/2024 11:15 AM BANKING CENTER MANAGER Office Visit [facility] Oncology and Hematology - [place] [address] [facility] [address] [place] [address] Michele Smith MD [address] [facility] [address] [place] [address] documented as of this encounter Procedures Procedure Name Priority Date/Time Associated Diagnosis Comments (BROTH-ENRICHED) GROUP B STREP DETECTION Routine 07/20/2009 12:00 PM BANKING CENTER MANAGER Supervision of Other Normal documented in this encounter Results * STREPTOCOCCUS GROUP B CULTURE (07/20/2009 12:00 PM BANKING CENTER MANAGER) PRELIMINARY REPORT Pending [facility] FINAL REPORT No Streptococcus Group B isolated. [facility] Vaginal 07/20/2009 12:0 0 PM BANKING CENTER MANAGER 07/20/2009 8:37 PM BANKING CENTER MANAGER Enrique Mckinney MD MICROBIOLOGY - GENER AL ORDERABLES [facility] CLIA# [id number] [address] [place] [address] documented in this encounter Visit Diagnoses Diagnosis Supervision of other normal documented in this encounter Care Teams Senior Production Manager Relationship Specialty Start Date End Date Barak Greenberg MD [address] [facility] [address] [place] [address] PCP - General 02/17/04 01/14/12 documented as of this encounter
--- OUTSIDE RECORDS SUMMARY | 2024-07-24 09:43 | XMS_ITS | Encounter Summary ---
Author Organization [facility] Address [address] [place] [address] Care Team Providers Care Scrap Sorter Name Role Phone Roxanna Acosta MD Primary Care Provider Encounter Details Date Type Department Care Team (Latest Contact Info) Description 02/19/2012 4:25 PM CDT - 02/19/2012 11:59 PM CDT Hospital Encounter [facility] [address] [facility] [address] [place] [address] Roxanna Acosta MD [address] [place] [address] Discharge Disposition: Home or Self Care Social [...] as of this encounter Miscellaneous Notes * Scanned Form - Stl Scanning, Him - 02/26/2012 1:27 PM CDT documented in this encounter Plan of Treatment Upcoming Encounters Date Type Department Care Team (Late st Contact Info) Description 08/23/2024 11:15 AM SYRUP MIXER HELPER Office Visit [facility] Oncology and Hematology - [place] [address] [place] [address] Michele Smith MD [address] [facility] [address] [place] [address] documented as of this encounter Procedures Procedure Name Priority Date/Time Associated Diagnosis Comments XR LUMBAR SPINE 4+ VW Routine 02/19/2012 4:34 PM CDT Low back pain documented in this encounter Results * XR LUMBAR SPINE [...] documented in this encounter Visit Diagnoses Diagnosis Low back pain Lumbago documented in this encounter Care Teams Scrap Sorter Relationship Specialty Start Date End Date Roxanna Acosta MD PCP - General Family Practice 02/19/12 documented as of this encounter
--- OUTSIDE RECORDS SUMMARY | 2024-07-24 09:43 | XMS_ITS | Encounter Summary ---
Author Organization [facility] Address [address] [place] [address] Care Team Providers Care Dairy Scientist Name Role Phone Barak Greenberg MD Primary Care Provider [phone] Reason for Visit * Reason Comments Routine Visit Encounter Details Date Type Department Care Team (Latest Contact Info) Description 05/19/2009 11:20 AM CDT visit [facility] MANAGER LEADERSHIP DEVELOPMENT - [address] [address] Enriuqe Mckinney MD [address] [place] [address] Supervision of Other Normal (Primary Dx) Social History Tobacco Use Types [...] Sign Reading Time Taken Comments Blood Pressure 124/66 05/19/2009 11:44 AM CDT Pulse - - Temperature - - Respiratory Rate - - Oxygen Saturation - - Inhaled Oxygen Concentration - - Weight 75.3 kg (166 lb) 05/19/2009 11:44 AM CDT Height - - Body Mass Index 30.36 01/05/2009 1:10 PM CDT documented in this encounter Progress Notes * Enrique Mckinney MD - 05/19/2009 12:13 PM CDT BADW. Denies bleeding,leaking, cramping. Needs glucola. Needs flu shot. Increase water. documented in this encounter Plan of Treatment Upcoming Encounters Date Type Department Care Team (Late st Contact Info) Description 08/23/2024 11:15 AM HAND LACER Office Visit [facility] Oncology and Hematology - [place] [address] [facility] [address] [place] [address] Michele Smith MD [address] [facility] [address] [place] [address] documented as of this encounter Visit Diagnoses Diagnosis Supervision of other normal - Primary documented in this encounter Care Teams Dairy Scientist Relationship Specialty Start Date End Date Barak Greenberg MD [address] [facility] [address] [place] [address] PCP - General 02/17/04 01/14/12 documented as of this encounter
--- OUTSIDE RECORDS SUMMARY | 2024-07-24 09:43 | XMS_ITS | Encounter Summary ---
Author Organization [facility] Address [address] [place] [address] Care Team Providers Care Data Librarian Name Role Phone Barak Greenberg MD Primary Care Provider [phone] Encounter Details Date Type Department Care Team (Latest Contact Info) Description 03/05/2010 5:09 PM CDT - 03/05/2010 11:59 PM CDT Hospital Encounter [facility] Laboratory Support Services S [facility] [address] [place] [address] Enrique Mckinney MD [address] [address] Routine gynecological examination Discharge Disposition: Home or Self Care Social [...] st Contact Info) Description 08/23/2024 11:15 AM PULP MAKING PLANT OPERATOR Office Visit [facility] Oncology and Hematology - Farzad [address] [facility] [address] [place] [address] Michele Smith MD [address] [facility] [address] [place] [address] documented as of this encounter Procedures Procedure Name Priority Date/Time Associated Diagnosis Comments CERV/VAG CYTOPATH, SUREPATH W/RFLX HPV Routine 03/05/2010 3:28 PM CDT Routine Gynecological Examination documented in this encounter Results * CERV/VAG CYTOPATH, SUREPATH W/RFLX HPV (03/05/2010 3:28 PM CDT) CLINICAL INFORMATION HEALTHY [facility] PAP INTERP Negative for intraepithelial lesion or malignancy. [facility] [place] Measurer Pap Comment Based on the cytology result, reflex High Risk HPV DNA testing was not performed. [facility] ADEQUACY: Satisfactory for evaluation. Endocervical/trans formation zone component present. Age and/or menstrual status not provided [facility] SOURCE Endocervix [facility] PREV PAP: INFORMATION NOT PROVIDED [facility] CYTOTECHNOLOGI ST: [facility], CT(ASCP) [facility] Comment: ? Lab test performed by: [facility] [address] [address] ALLIE CARTER DO LAST MENSTRUAL PERIOD INFORMATION NOT PROVIDED [facility] PREV BX: INFORMATION NOT PROVIDED [facility] REPORT STATUS FINAL [facility] Endocervical 03/05/2010 3:28 PM CDT 03/05/2010 6:34 PM CDT Comment:ENDOCERVICAL Enrique Mckinney MD PATHOLOGY/CYTOLOGY O RDERABLES [facility] CLIA# [id number] [address] [facility] [place] [address] documented in this encounter Visit Diagnoses Diagnosis Routine gynecological examination documented in this encounter Care Teams Data Librarian Relationship Specialty Start Date End Date Barak Greenberg MD [address] [facility] [address] [place] [address] PCP - General 02/17/04 01/14/12 documented as of this encounter
--- OUTSIDE RECORDS SUMMARY | 2024-07-24 09:43 | XMS_ITS | Encounter Summary ---
Author Organization [facility] Address [address] [place] [address] Care Team Providers Care Research Aide Name Role Phone Roxanna Acosta MD Primary Care Provider [phone] Encounter Details Date Type Department Care Team (Late Contact Info) Description 08/13/2007 Outpatient Historical [facility] FREELANCE PHOTOGRAPHER - Medical [address] [address] Enrique Mckinney MD [address] [address] Social History Tobacco Use Types Packs/Day Years Used Date Smoking Tobacco: Never Assessed Sex and Gender Information Value Date Recorded Sex Assigned at Not on file Gender Identity Not on file Sexual Orientation Not on file documented as of this encounter Plan of Treatment Upcoming Encounters Date Type Department Care Team (Late Contact Info) Description 08/23/2024 11:15 AM TRAFFIC ASSISTANT Office Visit [facility] Oncology and Hematology - [place] [address] [facility] [address] [place] [address] Michele Smith MD [address] [facility] [address] [place] [address] documented as of this encounter Visit Diagnoses Not on filedocumented in this encounter Care Teams Research Aide Relationship Specialty Start Date End Date Roxanna Acosta MD PCP - General Family Practice 02/19/12 documented as of this encounter
--- OUTSIDE RECORDS SUMMARY | 2024-07-24 09:43 | XMS_ITS | Encounter Summary ---
Author Organization [facility] Address [address] [place] [address] Care Team Providers Care Ethics Manager Name Role Phone Marly Jordan MD Primary Care Provider [phone] Reason for Visit * Reason Onset Date Comments Medication Refill 01/20/2012 Encounter Details Date Type Department Care Team (Late st Contact Info) Description 01/20/2012 Refill [facility] LICENSED ACUPUNCTURIST - [address] [address] Enrique Mckinney MD [address] [place] [phone] Social History Tobacco Use Types Packs/Day [...] encounter Miscellaneous Notes * Telephone Encounter - Bill Palmer - 01/20/2012 11:10 AM CDTAddended by: BILL PALMER on: 01/20/2012 11:10 AM Modules accepted: Orders * Telephone Encounter - Enrique Mckinney MD - 01/20/2012 11:01 AM CDT Ok to refill * Telephone Encounter - Bill Palmer - 01/20/2012 10:54 AM CDT Pt would like you to refill Percocet and Bentyl. Please RX is this is okay. TG documented in this encounter Plan of Treatment Upcoming Encounters Date Type Department Care Team (Late st Contact Info) Description 08/23/2024 11:15 AM BISQUE GRADER Office Visit [facility] Oncology and Hematology - [place] [address] [facility] [address] [place] [address] Michele Smith MD [address] [facility] [address] [place] [address] documented as of this encounter Visit Diagnoses Not on filedocumented in this encounter Care Teams Ethics Manager Relationship Specialty Start Date End Date Marly Jordan MD [address] [facility] [address] [place] [address] PCP - General Internal Medicine 01/15/12 02/18/12 documented as of this encounter
--- OUTSIDE RECORDS SUMMARY | 2024-07-24 09:43 | XMS_ITS | Encounter Summary ---
Author Organization [facility] Address [address] [place] [address] Care Team Providers Care Tuft Machine Operator Name Role Phone Barak Greenberg MD Primary Care Provider [phone] Reason for Visit * Reason Comments Unspecified Complications Of Encounter Details Date Type Department Care Team (Latest Contact Info) Description 03/01/2009 3:50 PM CDT visit [facility] SAILMAKER - [address] [address] Enrique Mckinney MD [address] [place] [phone] State, Incidental (Primary Dx) Social History [...] Sign Reading Time Taken Comments Blood Pressure 118/70 03/01/2009 4:04 PM CDT Pulse - - Temperature - - Respiratory Rate - - Oxygen Saturation - - Inhaled Oxygen Concentration - - Weight 68.9 kg (152 lb) 03/01/2009 4:04 PM CDT Height - - Body Mass Index 27.8 01/05/2009 1:10 PM CDT documented in this encounter Progress Notes * Enrique Mckinney MD - 03/01/2009 4:25 PM CDT occ gas pain. Denies ctx,bleeding, discharge. +FM documented in this encounter Plan of Treatment Upcoming Encounters Date Type Department Care Team (Late st Contact Info) Description 08/23/2024 11:15 AM SCREW MACHINE SET UP OPERATOR TOOL Office Visit [facility] Oncology and Hematology - [place] [address] [facility] [address] [place] [address] Michele Smith MD [address] [facility] [address] [place] [address] documented as of this encounter Results * URINE CULTURE (04/21/2009 4:15 PM CDT) PRELIMINARY REPORT Pending [facility] FINAL REPORT No growth [address] [facility] URINE SPECIMEN OBTAINED BY CLEAN CATCH PROCEDURE / Unknown 04/21/2009 4:15 PM CDT 04/21/2009 7:49 PM CDT Enrique Mckinney MD MICROBIOLOGY - GENER AL ORDERABLES Performing Organization Address City/[facility]/ZIP Co de Phone Number [facility] CLIA# [id number] [address] [place] [address] * TSH REFLEXIVE (04/21/2009 4:15 PM CDT) TSH 2.19 0.27 - 4.20 uU/mL [facility] Blood specimen (specimen) 04/21/2009 4:15 PM CDT 04/21/2009 7:34 PM CDT Enrique Mckinney MD CHEMISTRY ORDERABLES [facility] CLIA# [id number] [address] [place] [address] * OBSTETRIC PANEL (04/21/2009 4:15 PM CDT) COMMENT See Additional Orderables [facility] Blood specimen (specimen) 04/21/2009 4:15 PM CDT 04/21/2009 7:34 PM CDT Enrique Mckinney MD CHEMISTRY ORDERABLES [facility] CLIA# [id number] [address] [place] [address] documented in this encounter Visit Diagnoses Diagnosis state, incidental- Primary documented in this encounter Care Teams Tuft Machine Operator Relationship Specialty Start Date End Date Barak Greenberg MD [address] [facility] [address] [place] [id number] PCP - General 02/17/04 01/14/12 documented as of this encounter
--- OUTSIDE RECORDS SUMMARY | 2024-07-24 09:43 | XMS_ITS | Encounter Summary ---
Author Organization [facility] Address [address] [place] [address] Care Team Providers Care Video Producer Name Role Phone Roxanna Acosta MD Primary Care Provider Encounter Details Date Type Department Care Team (Late Contact Info) Description 07/20/2007 Outpatient Historical [facility] Maternal and Ground [address] [place] [phone] Naveed Means MD [address] [facility] [address] [place] [address] Social History Tobacco Use Types Packs/Day Years Used Date Smoking Tobacco: Never Assessed Sex and Gender Information Value Date Recorded Sex Assigned at Not on file Gender Identity Not on file Sexual Orientation Not on file documented as of this encounter Plan of Treatment Upcoming Encounters Date Type Department Care Team (Late Contact Info) Description 08/23/2024 11:15 AM MEDICARE INSURANCE SPECIALIST Office Visit [facility] Oncology and Hematology - [place] [address] [facility] [address] [place] [address] Michele Smith MD [address] [facility] [address] [place] [address] documented as of this encounter Visit Diagnoses Not on filedocumented in this encounter Care Teams Video Producer Relationship Specialty Start Date End Date Roxanna Acosta MD PCP - General Family Practice 02/19/12 documented as of this encounter
--- OUTSIDE RECORDS SUMMARY | 2024-07-24 09:43 | XMS_ITS | Encounter Summary ---
Author Organization [facility] Address [address] [place] [address] Care Team Providers Care Bobbin Presser Name Role Phone Barak Greenberg MD Primary Care Provider [phone] Reason for Visit * Auth/Cert - Closed Specialty Diagnoses / Procedures Referred By Contac t Referred To Contact Obstetrics Diagnoses [facility] Mother Baby [address]c [address] [place] [address] Referral ID Status Reason Start Date Expiration Date Visits Re quested Visits Authorized [id number] Closed 08/16/2009 02/12/2010 1 Encounter Details Date Type Department Care Team (Latest Contact Info) Description 08/15/2009 10:53 PM RESIDENTIAL PROPERTY CONSULTANT - 08/18/2009 11:11 AM [facility] Hospital Encounter [facility] Mother/Baby [address] [place] [address] Enrique Miles MD [address] [address] Discharge Disposition: Home or Self [...] Sign Reading Time Taken Comments Blood Pressure 110/66 08/18/2009 8:30 AM RESIDENTIAL PROPERTY CONSULTANT Pulse 80 08/18/2009 8:30 AM RESIDENTIAL PROPERTY CONSULTANT Temperature 36.3 ??C (97.4 ??F) 08/18/2009 8:30 AM CS T Respiratory Rate 16 08/18/2009 8:30 AM RESIDENTIAL PROPERTY CONSULTANT Oxygen Saturation - - Inhaled Oxygen Concentration - - Weight 81.6 kg (180 lb) 08/15/2009 11:15 PM RESIDENTIAL PROPERTY CONSULTANT Height 157.5 cm (5' 2 ) 08/15/2009 11:15 PM RESIDENTIAL PROPERTY CONSULTANT Body Mass Index 32.92 08/15/2009 11:15 PM RESIDENTIAL PROPERTY CONSULTANT documented in this encounter Discharge Instructions * Discharge Instructions* Rocio Amezquita, ROMEO - 08/18/2009 8:03 AM RESIDENTIAL PROPERTY CONSULTANT FOLLOW-UP Call your doctor to schedule a 6 week appointment. Prescriptions given? No ACTIVITY/EXERCISE Recovery is a progressive process. It may take 6 to 8 weeks to return to pre- activity levels. Take time to rest each day. Limit visitors for the first few weeks. If you smoke you are advised to quit. Avoid second-hand smoke exposure and do not let people smoke in your home. Ask your health care provider for advice if you need assistance to stop smoking. EPISIOTOMY/STITCHES The stitches are absorbable and do not need to be removed. Rinse area with warm water after going to the bathroom. Gently dry perineal area from front to back. Change perineal pads frequently. You may use a plastic sitz bath kit or sit in a tub of 6 to 8 inches of warm water for 30 minutes 1 to 3 times per day. You may apply Tucks when you change your pad. BREAST CARE Wear a well fitting support bra, day and night. IF : ?? Wash breasts with warm water only during your daily shower Do not wash breast before or after each feeding as this may cause dry, cracked nipples For sore nipples, apply colostrum or breast milk to promote healing. Purified lanolin may also be applied to nipple and cover with breast pad. Lanolin does not need to be washed off prior to next feeding. If breasts are engorged, regularly remove milk from the breasts every 1 1/2 - 3 hours (via or use of a hospital grade pump). For additional comfort, apply cold compresses for 10 - 15 minutes as needed. If using breast pads, change with each feeding For advice call: Refer to phone number in booklet. IF BOTTLE FEEDING ?? Avoid breast stimulation, such as showers and pumping breasts. ?? If breasts are painful and engorged, apply ice packs for 15 - 20 minutes to the breasts or underthe arms. VAGINAL DISCHARGE Bleeding diminishes in amount each day. The color will change from red to pink to yellow-white. Thedischarge may last 2 - 5 weeks. It may increase and become bright red with activity but rest shouldrelieve this. Do not douche or use tampons. HEMORRHOIDS If they appear in or at the time of delivery, they will slowly disappear. Use of Tucks, sitz baths, or local medication will give relief. Avoid constipation. ABDOMINAL CRAMPS After- pains may be felt when . Talk with your doctor about pain medication. MENSTRUATION You may start to menstruate in 6 - 10 weeks if you are not or within 6 months if you are . The first two periods are often irregular and may be very heavy with clots. It may take a few months to establish a regular cycle and it may be somewhat different in length from before . SEXUAL INTERCOURSE You may resume intercourse after approximately four weeks or when the perineal area is not tender and vaginal bleeding has subsided. control measures should be used when you resume sexual intercourse. SIGNS/SYMPTOMS TO REPORT Call your doctor if you have any of the following: ?? Fever higher than 100 degrees or chills Fainting Frequency or burning with urination Heavy (more than 1 pad per hour), prolonged or foul smelling vaginal bleeding or discharge Swelling, redness, tenderness in breasts Swelling, redness, tenderness in legs Severe mood swings Thoughts of harming yourself or your baby DENTIAL PROPERTY CONSULTANT documented in this encounter Progress Notes * Rocio Amezquita, ROMEO - 08/18/2009 10:52 AM CST Ashok Nails will be discharged via wheelchair to home. Ashok Nails is accompanied by spouse and will be transported via private vehicle. DENTIAL PROPERTY CONSULTANT * Rocio Amezquita RN - 08/18/2009 8:49 AM CST Dc teaching done, rx's given, states understands. Sitz given w/ instruc's , hemorroid more swollen today, has cream, tucks, reviewed basic care. DENTIAL PROPERTY CONSULTANT * Enrique Miles MD - 08/18/2009 6:11 AM CST Ambulating. Voiding. Tolerating diet. Cough better. Good pain control Afebrile abd soft Fundus firm Ext neg melissa's Home today Instructions given DENTIAL PROPERTY CONSULTANT * Rocio Amezquita RN - 08/17/2009 2:00 PM CST States cough is better, and therefore so is pain control. DENTIAL PROPERTY CONSULTANT * Rocio Amezquita RN - 08/17/2009 9:57 AM CST Noted productive cough, states mucous is yellow/green and thick. C/o abd and perineum pain w/ coughing. Having coughing 'spell' now. Hot tea w/ honey, and broth prn. enc'd hot liqs, states understands. Dr Phyllis Dougherty called to notify. DENTIAL PROPERTY CONSULTANT documented in this encounter H&P Notes * Jennifer Wood MD - 08/16/2009 12:44 AM CST Obstetric Admission H&P 08/16/09 12:44 AM HPI: Ashok Nails is a 29 y.o. female with 40w2d weeks gestation based on ultrasound who is being admitted for induction of labor. Pt reports she plans to deliver natural and states she didn't want to go into labor at home. Otherwise patient reports no complaints and states she is feeling regular contractions. She denies vaginal bleeding or leaking of fluid. Good movement. 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 Pt also denies any cervical procedures. Previous Deliveries: Lefty- female born at term in November 2004, wt 8.5lbs, 4 hrs of labor, no forceps/vacuum required. Kofi- male born at term in November 2005, wt. 7.5lbs, 4 hrs of labor, no forceps/vacuum required Wild- male born at term in October 2007, wt. 6.5 lbs, 4 hrs of labor, no forceps/vacuum required. Pt reports all babies were born natural (without anesthetic) and were all uncomplicated. Medical History: Past Medical History Diagnosis Date ??? Patient denies relevant medical history Surgeries: Past Surgical History Procedure Date ??? Tonsillectomy Medications: Prescriptions prior to admission Medication Sig Dispense Refill ??? VIT #[id number] PO Take by mouth. Allergies: No known allergies Family History: Family History Problem Relation ??? Healthy Father ??? Healthy Mother Social History: Pt denies any tobacco, alcohol or illicit drug use during this . Pt is and has 3 other children. Review of Systems No fever, SOB, chest pain, vision changes, LUCERO, dysuria, nausea/vomiting or other GI complaints. Exam: Filed Vitals: 08/15/2009 11:15 PM BP: 117/72 Pulse: 72 Temp: 96.8 ??F (36 ??C) TempSrc: Oral Resp: 20 Height: 5' 2 (1.575 m) Weight: 180 lb (81.647 kg) General: Alert, no distress Lungs: Clear to auscultation bilaterally Heart: Regular rate and rhythm, no murmur Abdomen: Soft, gravid, non-tender; Estimated weight: 7.5 lbs Ext: Edema Trace SVE: 5 cm Presentation: cephalic heart tracins/ moderate variability/ accelerations present, decelerations absent [place]: q 6 min Lab Review GBS: Negative per patient- RN will confirm. ABO/RH TYPE Date Value Range Status 04/21/09 12:00 AM O Positive - (no units) Final RUBELLA IGG (Index) Date Value 04/21/09 4:15 PM 2.50 Lab Results Component Value Date/Time ??? WBC 5.9 04/21/09 4:15 PM ??? HEMOGLOBIN 12.4 04/21/09 4:15 PM ??? HEMATOCRIT 36.1 04/21/09 4:15 PM ??? PLATELETS 152 04/21/09 4:15 PM ??? MCV 88.9 04/21/09 4:15 PM Assessment: 29 y.o. 40w2d weeks gestation. Plan: 1) Admit to L&D. Anticipate vaginal delivery., Continue present management. and See orders. 2) status reassuring - Category 1 tracing 3) PNL: GBS Negative per patient- RN will confirm 4) RN discussed with attending. Addison John, [facility] R1 Addendum: Agree with above. Ashok Nails is a 29 y.o. female at 40w2d for MIL. Cervix favorable. Augment with pitocin. .Jennifer Wood MD DENTIAL PROPERTY CONSULTANT documented in this encounter Miscellaneous Notes * Scanned Form - Stl Scanning, Provider - 08/21/2009 11:08 AM RESIDENTIAL PROPERTY CONSULTANT * Scanned Form - Stl Scanning, Provider - 08/21/2009 11:08 AM RESIDENTIAL PROPERTY CONSULTANT * Delivery - Stl Scanning, Provider - 08/21/2009 11:08 AM RESIDENTIAL PROPERTY CONSULTANT * Assessment & Plan Note - Stl Scanning, Provider - 08/21/2009 11:08 AM RESIDENTIAL PROPERTY CONSULTANT * Patient Instructions - Stl Scanning, Provider - 08/21/2009 11:08 AM RESIDENTIAL PROPERTY CONSULTANT * Care Plan - Florida Marinelli RN - 08/16/2009 6:14 AM CST SLCBB ID NMDP ID Reviewed by/Date: [place] [facility] [phone] [facility] [address] [place], [place] [address] LABOR AND DELIVERY DATA Mother's Name: Ashok Nails Mother's Date of : 1980 Mother's Address: [address] [place] [id number] Auto Striper/Certified Nurse Computator: Raquel Miles Identity of donor above confirmed by verifying two identifiers (name, birthdate): yes Name of person who collected maternal samples of blood:Florida Marinelli RN Person completing labor and delivery data and confirming donor identification: Florida Marinelli RN Were any abnormal or remarkable findings detected on mother's physical assessment: no If yes, please comment: none Information: EGA: 40w2d Estimated Date of Delivery: 08/14/09 Labor: yes If Yes, Length of Labor: Not Applicable Hours 2 Labor Induced: yes Intrapartum Events: Other (Comment) (terminal meconium) Blood Transfusion in Labor: no Membrane Rupture Date: 08/16/09 Membrane Rupture Time: 422 Amniotic Fluid Color: clear Odor: normal Delivery Date : 08/16/09 Delivery Time : 438 Number of Infants Delivered: 1 (CORD BLOOD COLLECTIONS ARE FOR [facility]AS BIRTHS ONLY) Patient Temp in the past 72 hrs: Temp 08/16/09 0450 98.2 ??F (36.8 ??C) 08/16/09 0237 98.6 ??F (37 ??C) 08/15/09 2315 96.8 ??F (36 ??C) MATERNAL LAB DATA Maternal labs if manually entered by nursing: Blood Type: O RH: Positive Rubella Status: Non-immune Group B Strep Culture: Negative VDRL/RPR: Non-reactive (HIV neg) HbsAg: Negative Maternal labs from integrated physician practice or if drawn during patient hospitalization ( No results found for this basename displays if no data exists) Lab Results Component Value Date/Time ??? ABO/RH TYPE O Positive 04/21/09 12:00 AM ??? RUBELLA IGG 2.50 04/21/09 4:15 PM ??? RPR NON-REACTIVE 04/21/09 4:15 PM Lab Results Component Value Date/Time ??? HEPATITIS B SURFACE AG NON-REACTIVE 04/21/09 4:15 PM ??? HIV-1 AND 2 ABS NON-REACTIVE 04/21/09 4:15 PM ??? RUBELLA IGG 2.50 04/21/09 4:15 PM MATERNAL MEDICATIONS CURRENT HOSPITALIZATION Medications lactated ringers solution ( IV New Bag 08/16/09 0005) butorphanol (STADOL) injection 1 mg (not administered) metoclopramide (REGLAN) injection 10 mg (not administered) ondansetron (ZOFRAN) 4 mg/2 mL injection 4 mg (not administered) oxytocin (PITOCIN) 30 units in lactated ringers 500 mL infusion 1 danny- units/min (4 danny-units/min IV Rate Change 08/16/09 0200) OXYTOCIN IN LACTATED RINGERS 20 UNIT/1,000 ML IV (not administered) MEPIVACAINE 1 % INJECTION (not administered) oxycodone-acetaminophen (PERCOCET) 5-325 mg per tablet 1 Tab (2 Tab Oral Given 08/16/09 0540) ibuprofen (MOTRIN) tablet 600 mg (600 mg Oral Given 08/16/09 0548) INFORMATION Ethnicity of the Camanche: White Information for the patient's : Amy Nails [[id number]] Type of Delivery: Spontaneous Vaginal Delivery Weight: 7 lb 9 oz (3.43 kg) Temp: 98 ??F (36.7 ??C) 5 Minute Score: 9 Anomalies: No observed anomalies Meconium Below Vocal Cords? : No Comments: THE FOLLOWING ITEMS ARE ENCLOSED IN THE COLLECTION BOX (Right Click automatically sticks all items) labor and delivery data sheet and medical history questionnaire (if not sent in) DENTIAL PROPERTY CONSULTANT * Delivery - Jennifer Wood MD - 08/16/2009 5:13 AM CST Note Date of Procedure: 08/16/2009 Procedure: normal spontaneous vaginal delivery Incisions/Lacerations: 2nd degree perineal repaired with 3-0 Vicryl in standard fashion Primary OB: Enrique Miles MD Delivering OB: same Pcas: Jennifer Wood MD Anesthesia: Polocaine local Pt Identification: 29 y.o. at 40w2d complications: none Labor: augmented Labor complications: none Findings: Living , terminal meconium. Position: occiput anterior Information for the patient's : Amy Nails [[id number]] Delivery Time: 0439 Information for the patient's : Amy Nails [[id number]] 1 Minute Score: 8 5 Minute Score: 9 Information for the patient's : Amy Nails [[id number]] Weight: 7 lb 9 oz (3.43 kg) Nuchal cord: X 1 Placenta removed: Spontaneous. Retroplacental clot identified. Sent for pathology. Estimated Blood Loss: 300 mL Specimens: cord blood, cord blood donation and placenta Delivery complications: none Commentary: Mother and baby entered recovery in stable condition. Jennifer Wood MD DENTIAL PROPERTY CONSULTANT documented in this encounter Plan of Treatment Upcoming Encounters Date Type Department Care Team (Late st Contact Info) Description 08/23/2024 11:15 AM RESIDENTIAL PROPERTY CONSULTANT Office Visit [facility] Oncology and Hematology - [place] [address] [facility] [address] [place] [address] Michele Smith MD [address] [facility] [address] [place] [address] documented as of this encounter Procedures Procedure Name Priority Date/Time Associated Diagnosis Comments PATHOLOGY Routine 08/16/2009 3:22 PM RESIDENTIAL PROPERTY CONSULTANT documented in this encounter Results * PATHOLOGY (08/16/2009 3:22 PM RESIDENTIAL PROPERTY CONSULTANT) SURGICAL PATHOLOGY ?[facility] ?[address] ? [place], [place] ??[address] ? Patient: ??ASHOK NAILS ? : ??1980 ? Procedure Date: ??08/16/2009 ? Accession Date: ??08/16/2009 ? Case No: ??[id number] ? Ordering Dr: ??ENRIQUE MILES ? Case type SW is performed by [facility], [place], [place]; ? all other case types are performed by [facility] [place], [place], ? [place] ?SURGICAL PATHOLOGY & NON-GYNECOLOGIC CYTOPATHOLOGY REPORT ? DIAGNOSIS ? PLACENTA, VAGINAL DELIVERY: ? - INTERVILLOUS THROMBI, TWO. ? - LARGE FOR GESTATIONAL AGE. ? Specimen Description: ? Placenta. ? Operative Procedure: ? Spontaneous vaginal delivery. ? Patient Information/Histor y/Diagnosis: ? 40-2/7 weeks; retroplacental clot. ? Gross: ? Received in a single container labeled ??Ashok Nails, placenta and ? additionally designated ??no micro orders is a 20 x 18.5-cm macias ? placenta which ranges in thickness from 2.7 to 4 cm. The placenta has a ? trimmed weight of 551 g. The three-vessel, normally-torsed umbilical cord ? is 54 cm in length x 1.2 cm in diameter. The umbilical cord inserts ? eccentrically 5 cm from the closest placental margin. The membranes ? are greenberg-henderson and translucent with the point of rupture 12.5 cm from the ? margin. The surface is blue-greenberg and glistening and is remarkable for ? subchorionic fibrin deposition involving approximately 10% of the plate. ? The maternal surface is intact and complete. There is no evidence of ? adherent blood clot. A 118-g, 11 x 10 x 2.5-cm aggregate of homogeneous, ? glistening red-brown blood clot is loose within the container. The clot has ? a homogeneous, glistening red-brown cut surface. No tissue is embedded ? within the clot, and there is no evidence of lamination. Sectioning ? exhibits two areas of yellow-red induration, together occupying less than ? 2% of the total placental parenchyma. The largest area of induration is 3.3 ? cm in greatest dimension. The remainder of the placenta is soft, red-brown, ? and unremarkable. Tube Drawing Supervisor sections are submitted in cassettes as ? follows: A1-cord and membrane roll; A2 and A3-placental lesions; A4 and A5- ? unremarkable placenta; A6-loose blood clot. ? KLA/PHC 08.17.2009 08:44 am ? Microscopic: ? The slides are labeled Ashok Nails, and [id number]. ? The umbilical cord has three vessels. The membranes are free of ? significant acute inflammation. The chorionic villi have a third-trimester ? appearance. The two areas of induration noted grossly are both intervillous ? thrombi. No discrete infarcts are identified. There are areas of ? subchorionic fibrin deposition which were noted grossly. No vascular ? thrombi are identified. The separate blood clot in the container consists ? of recent blood clot which is of uncertain clinical significance. ? The placental weight of 551 g is just above the 90th percentile for a 40- ? 2/7-week gestation. ? JCL/LKP 08.18.2009 07:00 pm ? Staging Form: ? No. ? ELECTRONIC SIGNATURE FOR ROSAS TRIPATHI M.D.- 08/20/09 11:30 pm [facility] 08/16/2009 3:22 PM RESIDENTIAL PROPERTY CONSULTANT Enrique Miles MD PATHOLOGY/CYTOLOGY O RDERABLES [facility] CLIA# [id number] [address] [facility] [place] [address] documented in this encounter Visit Diagnoses Diagnosis Induction, O pos, GBS neg Unspecified indication for care or intervention related to labor and delivery, unspecified as to episode of care documented in this encounter Administered Medications Inactive Administered Medications - up to 3 most recent administrations Medication Order MAR Action Action Date Dose Rate Site guaifenesin SR (MUCINEX) tablet 600 mg 600 mg, Oral, EVERY 12 HOURS (BlD), First dose on Gilda 08/17/09 at 1015, Until Discontinued, Routine Given 08/18/2009 8:45 AM RESIDENTIAL PROPERTY CONSULTANT 600 mg Given 08/17/2009 9:37 PM RESIDENTIAL PROPERTY CONSULTANT 600 mg Given 08/17/2009 12:42 PM RESIDENTIAL PROPERTY CONSULTANT 600 mg hydrocortisone (ANUSOL-HC) 2.5 % rectal cream Rectal, TWO TIMES DAILY PRN, Starting on Fri08/16/09 at 0712, Until Fri08/18/09 at 1311, Hemorrhoids, Routine Given 08/18/2009 2:20 AM RESIDENTIAL PROPERTY CONSULTANT ibuprofen (MOTRIN) tablet 600 mg 600 mg, Oral, EVERY 6 HOURS PRN, Starting on Fri08/16/09 at 0534, Until Fri08/18/09 at 1311, Pain, Routine Given 08/18/2009 6:41 AM RESIDENTIAL PROPERTY CONSULTANT 600 mg Given 08/18/2009 12:00 AM RESIDENTIAL PROPERTY CONSULTANT 600 mg Given 08/17/2009 6:17 PM RESIDENTIAL PROPERTY CONSULTANT 600 mg lactated ringers solution IV, at 125 mL/hr, CONTINUOUS, Starting on Fri08/15/09 at 2330, Until Fri08/16/09 at 0712, Routine New Bag 08/16/2009 12:05 AM RESIDENTIAL PROPERTY CONSULTANT 125 mL/hr modified lanolin (LANSINOH) topical ointment Topical, SEE ADMIN INSTRUCTIONS, Starting on Fri08/16/09 at 0712, Until Fri08/18/09 at 1311, Routine Given 08/16/2009 8:57 PM RESIDENTIAL PROPERTY CONSULTANT Other (Comment) oxycodone-acetaminophen (PERCOCET) 10-325 mg per tablet 1 Tab 1 Tablet, Oral, EVERY 4 HOURS PRN, Starting on Fri08/16/09 at 0712, Until Fri08/18/09 at 1311, Pain, Severe, For Pain Scale 7-10, Routine Given 08/18/2009 6:42 AM RESIDENTIAL PROPERTY CONSULTANT 1 Tablet Given 08/18/2009 2:20 AM RESIDENTIAL PROPERTY CONSULTANT 1 Tablet Given 08/17/2009 10:23 PM RESIDENTIAL PROPERTY CONSULTANT 1 Tablet oxycodone-acetaminophen (PERCOCET) 5-325 mg per tablet 1 Tab 1 Tablet, Oral, EVERY 4 HOURS PRN, Starting on Fri08/16/09 at 0534, Until Fri08/18/09 at 1311, Pain, Moderate, For Pain Scale 4-6, Routine Given 08/16/2009 5:40 AM RESIDENTIAL PROPERTY CONSULTANT 2 Tablets OXYCODONE-ACETAMINOPHEN 5 MG-325 MG TAB 1 dose, Starting on Fri08/16/09 at 0538, Until Fri08/16/09 at 0540, Created by cabinet override pull oxytocin (PITOCIN) 30 units in lactated ringers 500 mL infusion 1 danny-units/min 1 danny-units/min (rounded to 1 mL/hr), IV, TITRATE, Starting on Fri08/15/09 at 2330, Until Fri08/16/09 at 0712, Routine Rate Change 08/16/2009 2:00 AM RESIDENTIAL PROPERTY CONSULTANT 4 danny-units/min 4 mL/hr Rate Change 08/16/2009 1:00 AM RESIDENTIAL PROPERTY CONSULTANT 2 danny-units/min 2 mL/ hr New Bag 08/16/2009 12:26 AM RESIDENTIAL PROPERTY CONSULTANT 1 danny-units/min 1 mL/ hr phenol-menthol (CEPASTAT) 14.5 mg lozenge 1 Lozenge 1 Lozenge, Mouth/Throat, EVERY 2 HOURS PRN, Starting on Fri08/17/09 at 1012, Until Fri08/18/09 at 1311, Sore Throat, Routine Given 08/18/2009 8:45 AM RESIDENTIAL PROPERTY CONSULTANT 1 Lozenge Given 08/17/2009 9:37 PM RESIDENTIAL PROPERTY CONSULTANT 1 Lozenge Given 08/17/2009 8:15 PM RESIDENTIAL PROPERTY CONSULTANT 1 Lozenge vit-iron fumarate-fa (BAKARI ) 28-0.8 mg per tablet 1 Tab 1 Tablet, Oral, DAILY, First dose on Fri08/16/09 at 0900, Until Discontinued, Routine Given 08/18/2009 8:45 AM RESIDENTIAL PROPERTY CONSULTANT 1 Tablet Given 08/17/2009 9:50 AM RESIDENTIAL PROPERTY CONSULTANT 1 Tablet Given 08/16/2009 11:54 AM RESIDENTIAL PROPERTY CONSULTANT 1 Tablet sennosides-docusate sodium (SENNA-S) 8.6-50 mg per tablet 1 Tab 1 Tablet, Oral, TWO TIMES DAILY, First dose on Fri08/16/09 at 0900, Until Discontinued, Routine Given 08/18/2009 8:45 AM RESIDENTIAL PROPERTY CONSULTANT 1 Tablet Given 08/17/2009 9:37 PM RESIDENTIAL PROPERTY CONSULTANT 1 Tablet Given 08/17/2009 9:51 AM RESIDENTIAL PROPERTY CONSULTANT 1 Tablet documented in this encounter Active and Recently Administered Medications Times are shown in RESIDENTIAL PROPERTY CONSULTANT. Scheduled Medication Order 08/16/2009 08/17/2009 08/18/2009 guaifenesin SR (MUCINEX) tablet 600 mg (CANCELED) 600 mg, Oral, EVERY 12 HOURS (BlD), First dose on Gilda 08/17/09 at 1015, Until Discontinued, Routine 1242 (Given - Provider: Rocio Amezquita RN)213 (Given - Provider: Raiza Ibarra, ROMEO) 0845 (Given - Provider: Rocio Amezquita, ROMEO) modified lanolin (LANSINOH) topical ointment (CANCELED) Topical, SEE ADMIN INSTRUCTIONS, Starting on Fri08/16/09 at 0712, Until Fri08/18/09 at 1311, Routine 2056 (Given - Provider: Raiza Ibarra RN - Comment: breasts) vit-iron fumarate-fa (BAKARI ) 28-0.8 mg per tablet 1 Tab (CANCELED) 1 Tablet, Oral, DAILY, First dose on Fri08/16/09 at 0900, Until Discontinued, Routine 1154 (Given - Provider: Viviana Byrd RN) 0950 (Given - Provider: Rocio Amezquita RN) 0845 (Given - Provider: Rocio Amezquita, ROMEO) sennosides-docusate sodium (SENNA-S) 8.6-50 mg per tablet 1 Tab (CANCELED) 1 Tablet, Oral, TWO TIMES DAILY, First dose on Fri08/16/09 at 0900, Until Discontinued, Routine 0821 (Given - Provider: Viviana Byrd RN)2057 (Given - Provider: Raiza Ibarra, ROMEO) 0951 (Given - Provider: Rocio Amezquita, ROMEO)213 (Given - Provider: Raiza Ibarra, ROMEO) 0845 (Given - Provider: Rocio Amezquita, ROMEO) Continuous Medication Order 08/16/2009 08/17/2009 08/18/2009 lactated ringers solution (CANCELED) IV, at 125 mL/hr, CONTINUOUS, Starting on Fri08/15/09 at 2330, Until Fri08/16/09 at 0712, Routine 0005 (New Bag - Provider: Florida Marinelli RN) oxytocin (PITOCIN) 30 units in lactated ringers 500 mL infusion 1 danny-units/min (CANCELED) 1 danny-units/min (rounded to 1 mL/hr), IV, TITRATE, Starting on Fri08/15/09 at 2330, Until Fri08/16/09 at 0712, Routine 0026 (New Bag - Provider: Florida Marinelli RN)0100 (Rate Change - Provider: Florida Marinelli RN)0200 (Rate Change - Provider: Florida Marinelli RN) PRN Medication Order 08/16/2009 08/17/2009 08/18/2009 hydrocortisone (ANUSOL-HC) 2.5 % rectal cream (CANCELED) Rectal, TWO TIMES DAILY PRN, Starting on Fri08/16/09 at 0712, Until Fri08/18/09 at 1311, Hemorrhoids, Routine 0220 (Given - Provider: Julio César Akins RN) ibuprofen (MOTRIN) tablet 600 mg 600 mg, Oral, EVERY 6 HOURS PRN, Starting on Fri08/16/09 at 0534, Until Fri08/18/09 at 1311, Pain, Routine 0548 (Given - Provider: Florida Marinelli RN)1150 (Given - Provider: Viviana Byrd RN)1745 (Given - Provider: Keya Gongora RN)2346 (Given - Provider: Raiza Ibarra RN) 0554 (Given - Provider: Raiza Ibarra RN)1242 (Given - Provider: Rocio Amezquita RN)1817 (Given - Provider: Rocio Amezquita RN) 0000 (Given - Provider: Raiza Ibarra RN)0641 (Given - Provider: Raiza Ibarra, ROMEO) oxycodone-acetaminophe n (PERCOCET) 10-325 mg per tablet 1 Tab (CANCELED) 1 Tablet, Oral, EVERY 4 HOURS PRN, Starting on Fri08/16/09 at 0712, Until Fri08/18/09 at 1311, Pain, Severe, For Pain Scale 7-10, Routine 0820 (Given - Provider: Viviana Byrd RN)1257 (Given - Provider: Viviana Byrd ROMEO)1704 (Given - Provider: Keya Gongora, RN)205 (Given - Provider: Raiza Ibarra, ROMEO) 0139 (Given - Provider: Raiza Ibarra RN)0554 (Given - Provider: Raiza Ibarra, ROMEO)0955 (Given - Provider: Rocio Amezquita, ROMEO)1418 (Given - Provider: Rocio Amezquita, ROMEO)181 (Given - Provider: Rocio Amezquita RN)2223 (Given - Provider: Raiza Ibarra RN) 0220 (Given - Provider: Julio César Akins, ROMEO)0642 (Given - Provider: Raiza Ibarra RN) oxycodone-acetaminophe n (PERCOCET) 5-325 mg per tablet 1 Tab 1 Tablet, Oral, EVERY 4 HOURS PRN, Starting on 08/16/09 at 0534, Until Fri08/18/09 at 1311, Pain, Moderate, For Pain Scale 4-6, Routine 0540 (Given - Provider: Florida Marinelli RN) phenol-menthol (CEPASTAT) 14.5 mg lozenge 1 Lozenge (CANCELED) 1 Lozenge, Mouth/Throat, EVERY 2 HOURS PRN, Starting on Gilda 08/17/09 at 1012, Until Fri08/18/09 at 1311, Sore Throat, Routine 1242 (Given - Provider: Rocio Amezquita RN)1418 (Given - Provider: Rocio Amezquita RN)181 (Given - Provider: Rocio Amezquita RN)2014 (Given - Provider: Raiza Ibarra RN)213 (Given - Provider: Raiza Ibarra, ROMEO) 0845 (Given - Provider: Rocio Amezquita, ROMEO) documented in this encounter Care Teams Bobbin Presser Relationship Specialty Start Date End Date Barak Greenberg MD [address] [address] PCP - General 02/17/04 01/14/12 documented as of this encounter
--- OUTSIDE RECORDS SUMMARY | 2024-07-24 09:43 | XMS_ITS | Encounter Summary ---
Author Organization [facility] Address [address] [place] [address] Care Team Providers Care Manager Stylist Name Role Phone Barak Greenberg MD Primary Care Provider [phone] Reason for Visit * Reason Comments Well Woman Exam Encounter Details Date Type Department Care Team (Latest Contact Info) Description 03/05/2010 2:10 PM CDT Initial [facility] LICENSED SALES ASSISTANT - Medical [address] [address] Enrique Mckinney MD [address] [address] Examination or Test, Negative Result (Primary Dx); Menstrual Disorder NEC; Routine Gynecological Examination Social History Tobacco Use [...] Sign Reading Time Taken Comments Blood Pressure 112/68 03/05/2010 2:17 PM CDT Pulse - - Temperature - - Respiratory Rate - - Oxygen Saturation - - Inhaled Oxygen Concentration - - Weight 57.2 kg (126 lb) 03/05/2010 2:17 PM CDT Height - - Body Mass Index 23.05 08/15/2009 11:15 PM CAPACITY PLANNING ANALYST documented in this encounter Plan of Treatment Upcoming Encounters Date Type Department Care Team (Late st Contact Info) Description 08/23/2024 11:15 AM CAPACITY PLANNING ANALYST Office Visit [facility] Oncology and Hematology - Farzad [address] [place] [address] Michele Smith MD [address] [facility] [address] [place] [address] documented as of this encounter Procedures Procedure Name Priority Date/Time Associated Diagnosis Comments POC , URINE Routine 03/05/2010 2:24 PM CDT Examination or Test, Negative Result documented in this encounter Results * HCG QUANTITATIVE, BLOOD (03/05/2010 3:35 PM CDT) HCG QUANT, BLOOD <5 0 - 5 mIU/mL [facility] Comment: Result of 5 - 25 mIU/mL is indeterminant for , repeat of test recommemded in 48 hours. Reference Range: Gestational Age: 3 ??Weeks ?5.8 - 71.2 ?mIU/mL 4 ??Weeks ?9.5 - 750 ? mIU/mL 5 ??Weeks ?217 - 6324 ?mIU/mL 6 ??Weeks ?158 - 31,795 ?mIU/mL 7 ??Weeks ? 3697 - 163,563 ?? mIU/mL 8 ??Weeks ? 32,065 - 149,571 ?? mIU/mL 9 ??Weeks ? 63,803 - 151,410 ?? mIU/mL 10 Weeks ? 46,509 - 186,977 ?? mIU/mL 12 Weeks ? 27,832 - 210,612 ?? mIU/mL 14 Weeks ? 13,950 - 62,530 ?mIU/mL 15 Weeks ? 12,039 - 70,971 ?mIU/mL 16 Weeks ? 9040 - 56,451 ?mIU/mL 17 Weeks ? 8175 - 55,868 ?mIU/mL 18 Weeks ? 8099 - 58,176 ?mIU/mL Heterophile antibodies and other interfering substances in the serum of some patients may cause a false-positive result in this assay. ??Before making a diagnosis of malignancy or etopic ,the result of this test should be confirmed with a urine HCG test and correlated with other clinical evidence. Blood specimen (specimen) 03/05/2010 3:35 PM CDT 03/05/2010 6:13 PM CDT Enrique Mckinney MD CHEMISTRY ORDERABLES [facility] CLIA# [id number] [address] [facility] [address] [place] [place] [address] * CERV/VAG CYTOPATH, SUREPATH W/RFLX HPV (03/05/2010 3:28 PM CDT) Pathologist [facility] CLINICAL INFORMATION HEALTHY [facility] PAP INTERP Negative for intraepithelial lesion or malignancy. [facility] Separator Tender Pap Comment Based on the cytology result, reflex High Risk HPV DNA testing was not performed. [facility] ADEQUACY: Satisfactory for evaluation. Endocervical/trans formation zone component present. Age and/or menstrual status not provided [facility] SOURCE Endocervix [facility] PREV PAP: INFORMATION NOT PROVIDED [facility] CYTOTECHNOLOGI ST: [facility], CT(ASCP) [facility] Comment: ? Lab test performed by: [employer] [facility] [address] [place] [address] ALLIE CARTER DO LAST MENSTRUAL PERIOD INFORMATION NOT PROVIDED [facility] PREV BX: INFORMATION NOT PROVIDED [facility] REPORT STATUS FINAL [facility] Endocervical 03/05/2010 3:28 PM CDT 03/05/2010 6:34 PM CDT Comment:ENDOCERVICAL Enrique Mckinney MD PATHOLOGY/CYTOLOGY O RDERAJANNETTE Performing Organization Address City/[facility] Co de Phone Number [facility] CLIA# [id number] [address] [place] [address] * POC , URINE (03/05/2010 2:24 PM CDT) HCG QUAL URINE NEG [facility] , URINE POC neg [facility] SPECIFIC GRAVITY UA 1.001 - 1.035 [facility] HCG QUAL URINE COMMENT [facility] Urine specimen (specimen) 03/05/2010 2:24 PM CDT Enrique Mckinney MD POINT OF CARE TESTIN G Performing Organization Address City/[facility] Co de Phone Number [facility] documented in this encounter Visit Diagnoses Diagnosis examination or test, negative result- Primary Other disorder of menstruation and other abnormal bleeding from female genital tract Routine gynecological examination Other disorder of menstruation and other abnormal bleeding from female genital tract documented in this encounter Care Teams Manager Stylist Relationship Specialty Start Date End Date Barak Greenberg MD [address]1 [facility] [address] [place] [address] PCP - General 02/17/04 01/14/12 documented as of this encounter
--- OUTSIDE RECORDS SUMMARY | 2024-07-24 09:43 | XMS_ITS | Encounter Summary ---
Author Organization [facility] Address [address] [place] [address] Care Team Providers Care Care Process Manager Name Role Phone Barak Greenberg MD Primary Care Provider [phone] Encounter Details Date Type Department Care Team (Latest Contact Info) Description 03/05/2010 3:28 PM CDT - 03/05/2010 11:59 PM CDT Hospital Encounter [facility] [address] [place] [address] Enrique Mckinney MD [address] [place] [address] Discharge Disposition: Home or Self Care [...] st Contact Info) Description 08/23/2024 11:15 AM CARD FIXER Office Visit [facility] Oncology and Hematology - Farzad [address] [facility] [address] [place] [address] Michele Smith MD [address] [facility] [address] [place] [address] (work) documented as of this encounter Procedures Procedure Name Priority Date/Time Associated Diagnosis Comments HCG QUANTITATIVE, BLOOD Routine 03/05/2010 3:35 PM CDT Menstrual Disorder NEC documented in this encounter Results * HCG QUANTITATIVE, BLOOD (03/05/2010 3:35 PM CDT) HCG QUANT, BLOOD <5 0 - 5 mIU/mL [facility] Comment: Result of 5 - 25 mIU/mL is indeterminant for , repeat of test recommemded in 48 hours. Reference Range: Gestational Age: 3 ??Weeks ?5.8 - 71.2 ?mIU/mL 4 ??Weeks ?9.5 - 750 ? mIU/mL 5 ??Weeks ?217 - 2062 ?mIU/mL 6 ??Weeks ?158 - 31,795 ?mIU/mL [...] 9040 - 56,451 ?mIU/mL 17 Weeks ? 1356 - 12,868 ?mIU/mL 18 Weeks ? 8099 - 58,176 [...] PM CDT Enrique Mckinney MD CHEMISTRY ORDERABLES [facility] CLIA# [id number] [address] [place] [address] documented in this encounter Visit Diagnoses Diagnosis Other disorder of menstruation and other abnormal bleeding from female genital tract documented in this encounter Care Teams Care Process Manager Relationship Specialty Start Date End Date Barak Greenberg MD [address] [facility] [address] [place] [address] PCP - General 02/17/04 01/14/12 documented as of this encounter
--- OUTSIDE RECORDS SUMMARY | 2024-07-24 09:43 | XMS_ITS | Encounter Summary ---
Author Organization [facility] Address [address] [place] [address] Care Team Providers Care Photography Intern Name Role Phone Barak Greenberg MD Primary Care Provider [phone] Reason for Visit * Reason Comments Routine Visit Encounter Details Date Type Department Care Team (Latest Contact Info) Description 03/30/2009 3:40 PM CDT visit [facility] SEARCH DEVELOPER - Medical [address] [address] Enrique Mckinney MD [address] [place] [address] State, Incidental (Primary Dx) Social History [...] Sign Reading Time Taken Comments Blood Pressure 120/68 03/30/2009 4:10 PM CDT Pulse - - Temperature - - Respiratory Rate - - Oxygen Saturation - - Inhaled Oxygen Concentration - - Weight 73 kg (161 lb) 03/30/2009 4:10 PM CDT Height - - Body Mass Index 29.45 01/05/2009 1:10 PM CDT documented in this encounter Progress Notes * Enrique Mckinney MD - 03/30/2009 4:32 PM CDT BADW. Forgot to do blood work. Denies quad screen. USN ok--boy. documented in this encounter Plan of Treatment Upcoming Encounters Date Type Department Care Team (Late st Contact Info) Description 08/23/2024 11:15 AM SOLVENT PROCESS EXTRACTOR OPERATOR Office Visit [facility] Oncology and Hematology - Farzad [address] [facility] [address] [place] [address] Michele Smith MD [address] [facility] [address] [place] [address] documented as of this encounter Visit Diagnoses Diagnosis state, incidental- Primary documented in this encounter Care Teams Photography Intern Relationship Specialty Start Date End Date Barak Greenberg MD [address] [facility] [address] [place] [address] PCP - General 02/17/04 01/14/12 documented as of this encounter
--- OUTSIDE RECORDS SUMMARY | 2024-07-24 09:43 | XMS_ITS | Encounter Summary ---
Author Organization [facility] Address [address] [place] [address] Care Team Providers Care Lube Technician Name Role Phone Roxanna Acosta MD Primary Care Provider Encounter Details Date Type Department Care Team (Late Contact Info) Description 10/25/2007 Inpatient Historical [facility] Enrique Mckinney MD [address] [address] Normal Delivery Social History Tobacco Use Types Packs/Day Years Used Date Smoking Tobacco: Never Assessed Sex and Gender Information Value Date Recorded Sex Assigned at Not on file Gender Identity Not on file Sexual Orientation Not on file documented as of this encounter Plan of Treatment Upcoming Encounters Date Type Department Care Team (Late Contact Info) Description 08/23/2024 11:15 AM JANITOR CUSTODIAN Office Visit [facility] Oncology and Hematology - Far[place]ad [address] [place] [address] [facility] [address] [place] [address] Michele Smith MD [address] [facility] [address] [place] [address] documented as of this encounter Procedures Procedure Name Priority Date/Time Associated Diagnosis Comments URINALYSIS W/REFLEX MICROSCOPIC Stat 10/25/2007 6:26 PM CDT documented in this encounter Results * URINALYSIS (10/25/2007 6:26 PM CDT) WBC UA Invalid Result 0 - 5 [facility] CLARITY UA Invalid Result Clear [facility] PROTEIN UA Invalid Result Negative [facility] EPITHELIAL CELLS, URINE Invalid Result [facility] BILIRUBIN UA Invalid Result Negative [facility] LEUKOCYTE ESTERASE UA Invalid Result Negative [facility] RBC UA Invalid Result 0 - 4 /HPF [facility] SPECIFIC GRAVITY UA Invalid Result 1.001 - 1.035 [facility] GLUCOSE UA Invalid Result Negative [facility] BLOOD UA Invalid Result Negative [facility] TRANSITIONAL EPI Invalid Result [facility] COLOR UA Invalid Result [facility] Comment: Lab was notified by Laura 10/25/07 7:35 PM that specimen was mislabeled. ??Patient's account has been credited. NITRITE UA Invalid Result Negative [facility] UROBILINOGEN UA Invalid Result <1 [facility] BACTERIA UA Invalid Result None Seen [facility] PH UA Invalid Result 5.0 - 8.0 [facility] KETONES UA Invalid Result Negative [facility] 10/25/2007 6:26 PM CDT 10/25/2007 6:30 PM CDT Enrique Mckinney MD URINE ORDERABLES [facility] [address] [place] [address] documented in this encounter Visit Diagnoses Diagnosis Normal delivery documented in this encounter Care Teams Lube Technician Relationship Specialty Start Date End Date Roxanna Acosta MD PCP - General Family Practice 02/19/12 documented as of this encounter
--- OUTSIDE RECORDS SUMMARY | 2024-07-24 09:43 | XMS_ITS | Encounter Summary ---
Author Organization [facility] Address [address] [place] [address] Care Team Providers Care Operations Mgr Name Role Phone Barak Greenberg MD Primary Care Provider [phone] Reason for Visit * Reason Onset Date Comments Medication Refill 05/22/2009 Encounter Details Date Type Department Care Team (Late Contact Info) Description 05/22/2009 Refill [facility] MIDDLEWARE SYSTEMS ARCHITECT - Medical [address] [address] Enrique Mckinney MD [address] [address] Social History Tobacco Use Types [...] (Late Contact Info) Description 08/23/2024 11:15 AM FIRE ASSISTANT Office Visit [facility] Oncology and Hematology - Farzad [address] [facility] [address] [place] [address] Michele Smith MD [address] [facility] [address] [place] [address] documented as of this encounter Visit Diagnoses Not on filedocumented in this encounter Care Teams Operations Mgr Relationship Specialty Start Date End Date Barak Greenberg MD [address] [address] PCP - General 02/17/04 01/14/12 documented as of this encounter
--- OUTSIDE RECORDS SUMMARY | 2024-07-24 09:43 | XMS_ITS | Encounter Summary ---
Author Organization [facility] Address [address] [place] [address] Care Team Providers Care Amusement Ride Operator Name Role Phone Barak Greenberg MD Primary Care Provider [phone] Reason for Visit * Reason Comments Routine Visit Encounter Details Date Type Department Care Team (Latest Contact Info) Description 07/20/2009 11:40 AM ENTERER visit [facility] PRODUCT RESPONSIBILITY LIAISON - Medical [address] [address] Enrique Mckinney MD [address] [place] [address] Supervision of Other Normal (Primary Dx) [...] Sign Reading Time Taken Comments Blood Pressure 122/72 07/20/2009 12:00 PM ENTERER Pulse - - Temperature - - Respiratory Rate - - Oxygen Saturation - - Inhaled Oxygen Concentration - - Weight 81.6 kg (180 lb) 07/20/2009 12:00 PM ENTERER Height - - Body Mass Index 32.92 01/05/2009 1:10 PM CDT documented in this encounter Progress Notes * Enriqeu Mckinney MD - 07/20/2009 12:22 PM CST BADW. Denies bleeding. occ ctx. GBS today. Labor precautions RER documented in this encounter Plan of Treatment Upcoming Encounters Date Type Department Care Team (Late st Contact Info) Description 08/23/2024 11:15 AM ENTERER Office Visit [facility] Oncology and Hematology - Farzad [address] [facility] [address] [place] [address] Michele Smith MD [address] [facility] [address] [place] [address] documented as of this encounter Results * STREPTOCOCCUS GROUP B CULTURE (07/20/2009 12:00 PM ENTERER) PRELIMINARY REPORT Pending [facility] FINAL REPORT No Streptococcus Group B isolated. [facility] Vaginal 07/20/2009 12:0 0 PM ENTERER 07/20/2009 8:37 PM ENTERER Enrique Mckinney MD MICROBIOLOGY - GENER AL ORDERABLES [facility] CLIA# [id number] [address] [place] [address] documented in this encounter Visit Diagnoses Diagnosis Supervision of other normal - Primary documented in this encounter Care Teams Amusement Ride Operator Relationship Specialty Start Date End Date Barak Greenberg MD [address] [facility] [address] [place] [id number] PCP - General 02/17/04 01/14/12 documented as of this encounter
--- OUTSIDE RECORDS SUMMARY | 2024-07-24 09:43 | XMS_ITS | Encounter Summary ---
Author Organization [facility] Address [address] [place] [address] Care Team Providers Care Silk Screen Painter Name Role Phone Roxanna Acosta MD Primary Care Provider Encounter Details Date Type Department Care Team (Late Contact Info) Description 10/05/2007 Outpatient Historical [facility] MAINTENANCE MECHANIC ELEVATORS - Medical [place] [facility] [address] [facility] [address] [address] Epifanio Jones MD NO ADDRESS ON FILE Social History Tobacco Use Types Packs/Day Years Used Date Smoking Tobacco: Never Assessed Sex and Gender Information Value Date Recorded Sex Assigned at Not on file Gender Identity Not on file Sexual Orientation Not on file documented as of this encounter Plan of Treatment Upcoming Encounters Date Type Department Care Team (Late Contact Info) Description 08/23/2024 11:15 AM MEDICAL ILLUSTRATOR Office Visit [facility] Oncology and Hematology - Farzad [address] [facility] [address] [place] [address] Michele Smith MD [address] [facility] [address] [place] [address] documented as of this encounter Visit Diagnoses Not on filedocumented in this encounter Care Teams Silk Screen Painter Relationship Specialty Start Date End Date Roxanna Acosta MD PCP - General Family Practice 02/19/12 documented as of this encounter
--- OUTSIDE RECORDS SUMMARY | 2024-07-24 09:43 | XMS_ITS | Encounter Summary ---
Author Organization [facility] Address [address] [place] [address] Care Team Providers Care Pharmacy Resident Name Role Phone Roxanna Acosta MD Primary Care Provider Reason for Visit * Outpatient Services (Routine) - Closed Specialty Diagnoses / Procedures Referred By Sana t Referred To Contact Physical Therapy Diagnoses Back pain Procedures PT EVAL AND TREAT Roxanna Acosta MD [address] [place] [address] [facility] [address] [facility] [address] [place] [address] Referral ID Status Reason Start Date Expiration Date Visits Re quested Visits Authorized [id number] Closed 02/20/2012 08/03/2012 60 60 Encounter Details Date Type Department Care Team (Late st Contact Info) Description 03/06/2012 2:50 PM CDT - 03/06/2012 11:59 PM CDT Hospital Encounter [facility] [address] [facility] [address] [place] [address] Roxanna Acosta MD [address] [place] [address] Meryl Graves, Physical Therapist Discharge [...] Notes * Meryl Hoffman, Physical Therapist - 03/06/2012 3:07 PM CDT Images from the original note were not included. Physical Therapy Daily Documentation Patient: Rosalba Jimenez Date: 03/06/2012 Date of : 1980 Physician: Roxanna Acosta MD Diagnosis: back pain Reason for Therapy: back pain Precautions: None per prescription Next MD Appointment: PRN PN Due: 03/27/12 Script Visits: by script expires 05/22/12 Insurance Visits: by 08/03/12 Summary List: Unchanged Time In: 3:04 p.m. Time Out: 3:28 p.m. Total Timed Treatment: 24 minutes Total Treatment Time: 24 minutes SUBJECTIVE Pain Level Pre-Treatment: 0/10 Pt states she is much improved with symptoms and has been catching herself crossing her legs and trying to stop. States she only had symptoms at night and while riding in car to [employer]. OBJECTIVE 1) Therapeutic Exercise: edu to perform self MET while supine rather than sitting edu on sleep position: on side with pillow between knees and towel roll under lumbar spine Prone press ups x 10 HEP Advanced (see handouts)- current: supine LTR to L with upper trunk rotation to R, self MET shotgun technique; added 03/06/12: Prone press ups 2) Manual Therapy: MET shotgun technique 3) Modalities to Address: pain and range of motion US: Continuous 1 MHz, 1.6 W/cm2, 8 minutes, to L3 paraspinals, in supine Objective Measures: L ASIS lower, PSIS higher (aligned after MET); Lumbar spine aligned ASSESSMENT Pain Level Post-Treatment: 0/10 Progress Towards [...] lumbar alignment at start of session. Impression: Initially with prone press ups pt having increase back pain, but relieved after ~ 3 reps. Appears to be doing well with treatments. PLAN Continue skilled therapy for back pain. SUZIE Rondon [facility] [address] [place] [address] documented in this encounter Plan of Treatment Upcoming Encounters Date Type Department Care Team (Late st Contact Info) Description 08/23/2024 11:15 AM BUSINESS SERVICES SPECIALIST SALES Office Visit [facility] Oncology and Hematology - Farzad [address] [facility] [address] [place] [address] Michele Smith MD [address] [facility] [address] [place] [address] documented as of this encounter Visit Diagnoses Not on filedocumented in this encounter Care Teams Pharmacy Resident Relationship Specialty Start Date End Date Roxanna Acosta MD PCP - General Family Practice 02/19/12 documented as of this encounter
--- OUTSIDE RECORDS SUMMARY | 2024-07-24 09:43 | XMS_ITS | Encounter Summary ---
Author Organization Address [address] [place] [address] Care Team Providers Care Inorganic Chemist Name Role Phone Barak Greenberg MD Primary Care Provider [phone] Reason for Visit * Reason Comments Well Woman Exam Encounter Details Date Type Department Care Team (Latest Contact Info) Description 01/05/2009 1:00 PM CDT Office Visit [facility] ARM MAKER - Medical [address] [address] Enrique Mckinney MD [address] [address] Routine Gynecological Examination (Primary Dx) Social History Tobacco Use Types [...] Sign Reading Time Taken Comments Blood Pressure 126/68 01/05/2009 1:10 PM CDT Pulse - - Temperature - - Respiratory Rate - - Oxygen Saturation - - Inhaled Oxygen Concentration - - Weight 69.4 kg (153 lb) 01/05/2009 1:10 PM CDT Height 157.5 cm (5' 2 ) 01/05/2009 1:10 PM CDT Body Mass Index 27.98 01/05/2009 1:10 PM CDT documented in this encounter Progress Notes * Enrique Mckinney MD - 01/05/2009 1:36 PM CDT SUBJECTIVE: 28 y.o. female for annual routine Pap and checkup. Patient's last menstrual period was 11/05/2008. Patient Active Problem List Diagnoses Date Noted Anxiety State, Unspecified [300.00] 11/03/2006 Acute Serous Otitis Media [381.01] 05/01/2006 Cellulitis and Abscess of Trunk [682.2] 12/09/2005 Past Medical History Diagnosis Date ??? Patient denies relevant medical history Past Surgical History Procedure Date ??? Tonsillectomy ROS: Feeling well. No dyspnea or chest pain on exertion. No abdominal pain, change in bowel habits,black or bloody stools. No urinary tract symptoms. STORE CONSULTANT ROS: normal menses, no abnormal bleeding, pelvic pain or discharge, no breast pain or new or enlarging lumps on self exam. No neurological complaints. OBJECTIVE: The patient appears well, alert, oriented x 3, in no distress. BP 126/68 Ht 5' 2 (1.575 m) Wt 153 lb (69.4 kg) LMP 11/05/2008 ENT normal. Neck supple. No adenopathy or [...] cervix, uterus and adnexa ASSESSMENT: well woman PLAN: pap smear counseled on breast self exam, family planning choices and adequate intake of calcium and vitamin D return annually or prn usn for dating with amanda documented in this encounter Plan of Treatment Upcoming Encounters Date Type Department Care Team (Late st Contact Info) Description 08/23/2024 11:15 AM HOSPICE CARE CONSULTANT Office Visit [facility] Oncology and Hematology - Far[place] 2[address] [facility] [address] [place] [address] Michele Smith MD 2228 [facility] [address] [place] [address] documented as of this encounter Procedures Procedure Name Priority Date/Time Associated Diagnosis Comments CERV/VAG CYTOPATH, SUREPATH FOCAL POINT Routine 01/05/2009 7:05 PM CDT Routine Gynecological Examination documented in this encounter Results * CERV/VAG CYTOPATH, SUREPATH FOCAL POINT (01/05/2009 7:05 PM CDT) SOURCE [facility] LAST MENSTRUAL PERIOD See Result Comment [facility] Comment:Information not prov ided REPORT STATUS [facility]AL [facility] CLINICAL INFORMATION HEALTHY [facility] FOOD AND DRUG INSPECTOR: See Result Comment [facility] Comment: BAB, CT(ASCP) ? Lab test performed by: [facility] [address] [address] MARGOTH CANTRELL MD ADEQUACY: See Result Comment [facility] Comment: Satisfactory for evaluation. Endocervical/transformation zone component present. Age and/or menstrual status not provided PREV BX: See Result Comment [facility] Comment:Information not prov ided PAP INTERP See Result Comment [facility] Comment:Negative for intraep ithelial lesion or malignancy. Aircraft Structural Design Engineer Pap Comment See Result Comment [facility] Comment: This Pap test has been evaluated with computer assisted technology. PREV PAP: See Result Comment [facility] Comment:Information not prov ided 01/05/2009 7:05 PM CDT 01/05/2009 7:11 PM CDT Enrique Mckinney MD PATHOLOGY/CYTOLOGY O RDERABLES INTERFACE SYSTEM Refer to clinic/hospital department [facility] CLIA# [id number] [address] [place] [address] documented in this encounter Visit Diagnoses Diagnosis Routine gynecological examination- Primary documented in this encounter Care Teams Inorganic Chemist Relationship Specialty Start Date End Date Barak Greenberg MD [address] [facility] [address] [place], [place] [id number] PCP - General 02/17/04 01/14/12 documented as of this encounter
--- OUTSIDE RECORDS SUMMARY | 2024-07-24 09:43 | XMS_ITS | Encounter Summary ---
Author Organization [facility] Address [address] [place] [address] Care Team Providers Care Cellular Tower Climber Name Role Phone Marly Jordan MD Primary Care Provider [phone] Reason for Visit * Reason Comments Establish Care Back Pain [facility] Follow up---lo wer back pain Abdominal Pain Urinary Frequency Other Pt is having US done today @ 1 Encounter Details Date Type Department Care Team (Late st Contact Info) Description 01/16/2012 11:45 AM CDT Office Visit [facility] Primary Care - [address] [place] [address] Marly Jordan MD [address] [place] [address] [address] [place] [address] Low back pain; Abdominal cramping Social History Tobacco Use Types Packs/Day Years [...] Reading Time Taken Comments Blood Pressure 106/70 01/16/2012 11:48 AM CDT Pulse - - Temperature - - Respiratory Rate - - Oxygen Saturation - - Inhaled Oxygen Concentration - - Weight 59 kg (130 lb) 01/16/2012 11:48 AM CDT Height 157.5 cm (5' 2 ) 01/16/2012 11:48 AM CDT Body Mass Index 23.78 01/16/2012 11:48 AM CDT documented in this encounter Progress Notes * Marly Jordan MD - 01/16/2012 12:17 PM CDT HISTORY OF PRESENT ILLNESS Rosalba Jimenez, a 31 y.o. female. HPI Chief Complaint Patient presents with ??? Establish Care ??? Back Pain [facility] Follow up---lower back pain ??? Abdominal Pain ??? Urinary Frequency ??? Other Pt is having US done today @ 1 Non -stop low back pain x 2 week , also has low pelvic cramps , she Also has frequency. REVIEW OF SYSTEMS Review of Systems Constitutional: Negative. HENT: Negative. Respiratory: Negative for cough, shortness of breath and wheezing. Cardiovascular: Negative for chest pain, palpitations and leg swelling. Gastrointestinal: Negative for abdominal pain. Genitourinary: Positive for dysuria, frequency and pelvic pain. Negative for urgency, hematuria, decreased urine volume, vaginal bleeding, vaginal discharge, difficulty urinating, genital sores, vaginal pain, menstrual problem and dyspareunia. PHYSICAL EXAM BP 106/70 Ht 5' 2 (1.575 m) Wt 130 lb (58.968 kg) BMI 23.78 kg/m2 Physical Exam Constitutional: She is oriented to person, place, and time. No distress. HENT: Head: Normocephalic and atraumatic. Eyes: EOM are normal. Pupils are equal, round, and reactive to light. Cardiovascular: Normal rate and regular rhythm. Pulmonary/Chest: Effort normal and breath sounds normal. Abdominal: Bowel sounds are normal. She exhibits no distension and no mass. There is no tenderness.There is no rebound and no guarding. Musculoskeletal: She exhibits no edema. Neurological: She is alert and oriented to person, place, and time. Skin: She is not diaphoretic. ASSESSMENT and PLAN: 1. Low back pain (724.2) oxyCODONE-acetaminophen (PERCOCET) 5-325 mg Oral tablet 2. Abdominal cramping (789.00) dicyclomine (BENTYL) 10 mg Oral capsule - await US results - GI referral documented in this encounter Plan of Treatment Upcoming Encounters Date Type Department Care Team (Late st Contact Info) Description 08/23/2024 11:15 AM STERILE SUPERVISOR Office Visit [facility] Oncology and Hematology - [place] [address] [facility] [address] [place] [address] Michele Smith MD 2[address] [facility] [address] [place] [address] documented as of this encounter Visit Diagnoses Diagnosis Low back pain Lumbago Abdominal cramping Abdominal pain, unspecified site documented in this encounter Care Teams Cellular Tower Climber Relationship Specialty Start Date End Date Marly Jordan MD 755 [facility] [address] [place] [address] PCP - General Internal Medicine 01/15/12 02/18/12 documented as of this encounter
--- OUTSIDE RECORDS SUMMARY | 2024-07-24 09:43 | XMS_ITS | Encounter Summary ---
Author Organization [facility] Address [address] [place] [address] Care Team Providers Care Machine Oiler Name Role Phone Roxanna Acosta MD Primary Care Provider Encounter Details Date Type Department Care Team (Late Contact Info) Description 08/13/2007 Outpatient Historical [facility] COAL PULVERIZER OPERATOR - Medical [address] [address] Enrique Mckinney MD [address] [address] Social History Tobacco Use Types Packs/Day Years Used Date Smoking Tobacco: Never Assessed Sex and Gender Information Value Date Recorded Sex Assigned at Not on file Gender Identity Not on file Sexual Orientation Not on file documented as of this encounter Plan of Treatment Upcoming Encounters Date Type Department Care Team (Late Contact Info) Description 08/23/2024 11:15 AM DRILLING AND PRODUCTION SUPERINTENDENT Office Visit [facility] Oncology and Hematology - Farzad [address] Tash[address] Mancini [facility] [address] [place] [address] Michele Smith MD [address] [facility] [address] [place] [address] documented as of this encounter Visit Diagnoses Not on filedocumented in this encounter Care Teams Machine Oiler Relationship Specialty Start Date End Date Roxanna Acosta MD PCP - General Family Practice 02/19/12 documented as of this encounter
--- OUTSIDE RECORDS SUMMARY | 2024-07-24 09:43 | XMS_ITS | Encounter Summary ---
Author Organization [facility] Address [address] [place] [address] Care Team Providers Care Oil Speculator Name Role Phone Barak Greenberg MD Primary Care Provider [phone] Encounter Details Date Type Department Care Team (Late Contact Info) Description 03/02/2009 Orders Only [facility] PAROLE OFFICER - [address] [place] [address] Enrique Mckinney MD 1 [facility] [address] [place] [address] Contact with or Exposure to Other Viral Diseases (Primary Dx) Social History Tobacco Use Types [...] (Late Contact Info) Description 08/23/2024 11:15 AM WOODWORKING MACHINE OPERATOR Office Visit [facility] Oncology and Hematology - [place] [address] [facility] Mancini [facility] [address] [place] [address] Michele Smith MD 2227 [facility] [address] [place] [address] documented as of this encounter Visit Diagnoses Diagnosis Contact with or exposure to other viral diseases(V01.79)- Primary Contact with or exposure to other viral diseases documented in this encounter Care Teams Oil Speculator Relationship Specialty Start Date End Date Barak Greenberg MD [address] [address] PCP - General 02/17/04 01/14/12 documented as of this encounter
--- OUTSIDE RECORDS SUMMARY | 2024-07-24 09:43 | XMS_ITS | Encounter Summary ---
Author Organization [email or web address] [facility] Address [address] [place] [address] Care Team Providers Care Clinic Md Associate Name Role Phone Marly Jordan MD Primary Care Provider [phone] Reason for Referral * Outpatient Services (Routine) - Closed Specialty Diagnoses / Procedures Referred By Snaa jarquin Referred To Contact Diagnoses Pelvic pain in female Procedures US PELVIS + TRANSVAG Epifanio Salgado Jr., MD [address] [place] [address] Referral ID Status Reason Start Date Expiration Date Visits Re quested Visits Authorized [id number] Closed 01/15/2012 01/14/2013 1 1 Reason for Visit * Outpatient Services (Routine) - Closed Specialty Diagnoses / Procedures Referred By Sana jarquin Referred To Contact Diagnoses Pelvic pain in female Procedures US PELVIS + TRANSVAG Epifanio Salgado Jr., MD [address] [place] [address] Referral ID Status Reason Start Date Expiration Date Visits Re quested Visits Authorized [id number] Closed 01/15/2012 01/14/2013 1 1 Encounter Details Date Type Department Care Team (Latest Contact Info) Description 01/16/2012 1:09 PM CDT - 01/16/2012 11:59 PM CDT [facility] [employer] [address] [place] [id number] Marly Jordan MD 7[address] [facility] [address] [place] [address] Epifanio Ramirez Jr., MD [address] [facility] [place] [address] Discharge Disposition: Home or Self Care Social [...] Sig Dispensed Refills Start Date End Date dicyclomine (BENTYL) 10 mg Oral capsuleIndications:Abdomi nal cramping Take 1 Cap by mouth 4 times daily as needed for Other (See Comment) (cramps). 40 Cap 0 01/16/2012 02/19/2012 oxyCODONE-acetaminophen (PERCOCET) 5-325 mg Oral tabletIndications:Low back pain Take 1 Tab by mouth every 4 hours as needed for Pain, Moderate. 20 Tab None 01/16/2012 02/07/2012 documented as of this encounter Miscellaneous Notes * Scanned Form - Stl Scanning, Him - 01/22/2012 6:06 PM CDT documented in this encounter Plan of Treatment Upcoming Encounters Date Type Department Care Team (Late st Contact Info) Description 08/23/2024 11:15 AM RIG OPERATOR Office Visit [facility] Oncology and Hematology - [place]ad [address] [place] [address] Michele Smith MD 8927 [facility] [address] [place] [address] documented as of this encounter Procedures Procedure Name Priority Date/Time Associated Diagnosis Comments US PELVIS + TRANSVAG NON OB Routine 01/16/2012 1:44 PM CDT Pelvic pain in female documented in this encounter Results * US [...] of menstrual cycle. Epifanio Ramirez Jr., MD ORDERABLES documented in this encounter Visit Diagnoses Diagnosis Pelvic pain in female Unspecified symptom associated with female genital organs documented in this encounter Care Teams Clinic Md Associate Relationship Specialty Start Date End Date Marly Jordan MD [address] [facility] [address] [place] [address] PCP - General Internal Medicine 01/15/12 02/18/12 documented as of this encounter
--- OUTSIDE RECORDS SUMMARY | 2024-07-24 09:44 | XMS_ITS | Encounter Summary ---
Author Organization [facility] Address [address] [place] [address] Care Team Providers Care Shank Paperer Name Role Phone Roxanna Acosta MD Primary Care Provider Encounter Details Date Type Department Care Team (Latest Contact Info) Description 07/16/2007 Outpatient Historical [facility] Enrique Mckinney MD [address] [facility] [address] [facility] [address] Naveed Means MD [address] [facility] [address] [place] [address] Other Specified Complication, Antepartum Social History Tobacco Use Types Packs/Day Years Used Date Smoking Tobacco: Never Assessed Sex and Gender Information Value Date Recorded Sex Assigned at Not on file Gender Identity Not on file Sexual Orientation Not on file documented as of this encounter Plan of Treatment Upcoming Encounters Date Type Department Care Team (Late st Contact Info) Description 08/23/2024 11:15 AM WOODS OVERSEER Office Visit [facility] Oncology and Hematology - Farzad [address] [facility] [address] [place] [address] Michele Smith MD 2[address] [facility] [address] [place] [address] documented as of this encounter Visit Diagnoses Diagnosis Other specified complication, antepartum(646.83) Other specified complication, antepartum documented in this encounter Care Teams Shank Paperer Relationship Specialty Start Date End Date Roxanna Acosta MD PCP - General Family Practice 02/19/12 documented as of this encounter
--- OUTSIDE RECORDS SUMMARY | 2024-07-24 09:44 | XMS_ITS | Encounter Summary ---
Author Organization [facility] Address [address] [place] [address] Care Team Providers Care Ice Cream Freezer Assistant Name Role Phone Roxanna Acosta MD Primary Care Provider [phone] Encounter Details Date Type Department Care Team (Late Contact Info) Description 03/27/2007 Outpatient Historical [facility] CANDLE WRAPPER - [address] [place] [address] Enrique Mckinney MD 621 [facility] [address] [place] [address] Social History Tobacco Use Types Packs/Day Years Used Date Smoking Tobacco: Never Assessed Sex and Gender Information Value Date Recorded Sex Assigned at Not on file Gender Identity Not on file Sexual Orientation Not on file documented as of this encounter Plan of Treatment Upcoming Encounters Date Type Department Care Team (Late Contact Info) Description 08/23/2024 11:15 AM HOMEOPATHIC DOCTOR Office Visit [facility] Oncology and Hematology - Farzad [address] T[address] Manc[address] [facility] [address] [place] [address] Michele Smith MD 2227 [facility] [address] [place] [address] documented as of this encounter Visit Diagnoses Not on filedocumented in this encounter Care Teams Ice Cream Freezer Assistant Relationship Specialty Start Date End Date Roxanna Acosta MD PCP - General Family Practice 02/19/12 documented as of this encounter
--- OUTSIDE RECORDS SUMMARY | 2024-07-24 09:44 | XMS_ITS | Encounter Summary ---
Author Organization [facility] Address [address] [place] [address] Care Team Providers Care Molder Fitting Name Role Phone Roxanna Acosta MD Primary Care Provider Encounter Details Date Type Department Care Team (Late Contact Info) Description 06/14/2002 Outpatient Historical [facility] Support Serv. (Adt Cardiology-[facility]) [address] [place] [address] Dallas Gannon MD NO ADDRESS ON FILE Social History Tobacco Use Types Packs/Day Years Used Date Smoking Tobacco: Never Assessed Sex and Gender Information Value Date Recorded Sex Assigned at Not on file Gender Identity Not on file Sexual Orientation Not on file documented as of this encounter Plan of Treatment Upcoming Encounters Date Type Department Care Team (Late Contact Info) Description 08/23/2024 11:15 AM FBI INVESTIGATOR Office Visit [facility] Oncology and Hematology - Farzad [address] Manc[address] [facility] [address] [place] [address] Michele Smith MD [address] [facility] [address] [place] [address] documented as of this encounter Visit Diagnoses Not on filedocumented in this encounter Care Teams Molder Fitting Relationship Specialty Start Date End Date Roxanna Acosta MD PCP - General Family Practice 02/19/12 documented as of this encounter
--- OUTSIDE RECORDS SUMMARY | 2024-07-24 09:44 | XMS_ITS | Encounter Summary ---
Author Organization [facility] Address [address] [place] [address] Care Team Providers Care Generation Engineer Name Role Phone Roxanna Acosta MD Primary Care Provider Encounter Details Date Type Department Care Team (Late st Contact Info) Description 10/18/2002 Outpatient Historical [facility] Primary Care - [address] [place] [address] Otf Talavera Social History Tobacco Use Types Packs/Day Years Used Date Smoking Tobacco: Never Assessed Sex and Gender Information Value Date Recorded Sex Assigned at Not on file Gender Identity Not on file Sexual Orientation Not on file documented as of this encounter Plan of Treatment Upcoming Encounters Date Type Department Care Team (Late st Contact Info) Description 08/23/2024 11:15 AM SOLUTIONS MARKET CONSULTANT Office Visit [facility] Oncology and Hematology - Farzad [address] T[address] Mancini [facility] [address] [place] [address] Michele Smith MD 2[address] [facility] [address] [place] [address] documented as of this encounter Visit Diagnoses Not on filedocumented in this encounter Care Teams Generation Engineer Relationship Specialty Start Date End Date Roxanna Acosta MD PCP - General Family Practice 02/19/12 documented as of this encounter
--- OUTSIDE RECORDS SUMMARY | 2024-07-24 09:44 | XMS_ITS | Encounter Summary ---
Author Organization [facility] Address [address] [place] [address] Care Team Providers Care Sales Promotion Coordinator Name Role Phone Roxanna Acosta MD Primary Care Provider Encounter Details Date Type Department Care Team (Late Contact Info) Description 06/18/2007 Outpatient Historical [facility] OFFSET PRINTER - Medical [address] [address] Enrique Mckinney MD [address] [address] Social History Tobacco Use Types Packs/Day Years Used Date Smoking Tobacco: Never Assessed Sex and Gender Information Value Date Recorded Sex Assigned at Not on file Gender Identity Not on file Sexual Orientation Not on file documented as of this encounter Plan of Treatment Upcoming Encounters Date Type Department Care Team (Late Contact Info) Description 08/23/2024 11:15 AM ROUGE PRESSER Office Visit [facility] Oncology and Hematology - [place]ad [address] Tash[address] Mancini [facility] 200 [place] [address] Michele Smith MD 2227 [facility] [address] [place] [address] documented as of this encounter Visit Diagnoses Not on filedocumented in this encounter Care Teams Sales Promotion Coordinator Relationship Specialty Start Date End Date Roxanna Acosta MD PCP - General Family Practice 02/19/12 documented as of this encounter
--- OUTSIDE RECORDS SUMMARY | 2024-07-24 09:44 | XMS_ITS | Encounter Summary ---
Author Organization [facility] Address [address] [place] [address] Care Team Providers Care Jammer Hooker Name Role Phone Roxanna Acosta MD Primary Care Provider Encounter Details Date Type Department Care Team (Late st Contact Info) Description 12/30/2001 Outpatient Historical [facility] Primary Care - [address] [place] [address] Otf Talavera Social History Tobacco Use Types Packs/Day Years Used Date Smoking Tobacco: Never Assessed Sex and Gender Information Value Date Recorded Sex Assigned at Not on file Gender Identity Not on file Sexual Orientation Not on file documented as of this encounter Plan of Treatment Upcoming Encounters Date Type Department Care Team (Late st Contact Info) Description 08/23/2024 11:15 AM HADOOP ANALYST Office Visit [facility] Oncology and Hematology - [place]ad [address] [facility] [address] [place] [address] Michele Smiht MD [address] [facility] [address] [place] [address] documented as of this encounter Visit Diagnoses Not on filedocumented in this encounter Care Teams Jammer Hooker Relationship Specialty Start Date End Date Roxanna Acosta MD PCP - General Family Practice 02/19/12 documented as of this encounter
--- OUTSIDE RECORDS SUMMARY | 2024-07-24 09:44 | XMS_ITS | Encounter Summary ---
Author Organization [facility] Address [address] [place] [address] Care Team Providers Care Lcpc Name Role Phone Roxanna Acosta MD Primary Care Provider [phone] Encounter Details Date Type Department Care Team (Late st Contact Info) Description 11/23/[address] [facility] Primary Care - [address] [place] [address] Otf Talavera Social History Tobacco Use Types Packs/Day Years Used Date Smoking Tobacco: Never Assessed Sex and Gender Information Value Date Recorded Sex Assigned at Not on file Gender Identity Not on file Sexual Orientation Not on file documented as of this encounter Plan of Treatment Upcoming Encounters Date Type Department Care Team (Late st Contact Info) Description 08/23/2024 11:15 AM SOFTWARE DEVELOPMENT SPECIALIST Office Visit [facility] Oncology and Hematology - Farzad [address] [facility] [address] [place] [address] Michele Smith MD 2227 [facility] [address] [place] [address] documented as of this encounter Visit Diagnoses Not on filedocumented in this encounter Care Teams Lcpc Relationship Specialty Start Date End Date Roxanna Acosta MD PCP - General Family Practice 02/19/12 documented as of this encounter
--- OUTSIDE RECORDS SUMMARY | 2024-07-24 09:44 | XMS_ITS | Encounter Summary ---
Author Organization [facility] Address [address] [place] [address] Care Team Providers Care Clean Energy Policy Analyst Name Role Phone Roxanna Acosta MD Primary Care Provider [phone] Encounter Details Date Type Department Care Team (Late Contact Info) Description 04/02/2007 Outpatient Historical [facility] METER TESTER PRIMARY - Medical [address] [address] Enrique Mckinney MD [address] [address] Social History Tobacco Use Types Packs/Day Years Used Date Smoking Tobacco: Never Assessed Sex and Gender Information Value Date Recorded Sex Assigned at Not on file Gender Identity Not on file Sexual Orientation Not on file documented as of this encounter Plan of Treatment Upcoming Encounters Date Type Department Care Team (Late Contact Info) Description 08/23/2024 11:15 AM STEAMER BLOCKER Office Visit [facility] Oncology and Hematology - Farzad [address] [facility] 200 [place] [address] Michele Smith MD 2227 [facility] [address] [place] [address] documented as of this encounter Visit Diagnoses Not on filedocumented in this encounter Care Teams Clean Energy Policy Analyst Relationship Specialty Start Date End Date Roxanna Acosta MD PCP - General Family Practice 02/19/12 documented as of this encounter
--- OUTSIDE RECORDS SUMMARY | 2024-07-24 09:44 | XMS_ITS | Encounter Summary ---
Author Organization [facility] Address [address] [place] [address] Care Team Providers Care Booth Cleaner Name Role Phone Roxanna Acosta MD Primary Care Provider [phone] Encounter Details Date Type Department Care Team (Late st Contact Info) Description 04/14/2002 Outpatient Historical [facility] Primary Care - [address] [place] [address] Otf Talavera Social History Tobacco Use Types Packs/Day Years Used Date Smoking Tobacco: Never Assessed Sex and Gender Information Value Date Recorded Sex Assigned at Not on file Gender Identity Not on file Sexual Orientation Not on file documented as of this encounter Plan of Treatment Upcoming Encounters Date Type Department Care Team (Late st Contact Info) Description 08/23/2024 11:15 AM SENIOR SUSTAINABILITY ADVISOR Office Visit [facility] Oncology and Hematology - Farzad [address] [facility] 200 [place] [address] Michele Smith MD 2227 [facility] [address] [place] [address] documented as of this encounter Visit Diagnoses Not on filedocumented in this encounter Care Teams Booth Cleaner Relationship Specialty Start Date End Date Roxanna Acosta MD PCP - General Family Practice 02/19/12 documented as of this encounter
--- OUTSIDE RECORDS SUMMARY | 2024-07-24 09:44 | XMS_ITS | Encounter Summary ---
Author Organization [facility] Address [address] [place] [address] Care Team Providers Care Facility Rehab Director Name Role Phone Roxanna Acosta MD Primary Care Provider Encounter Details Date Type Department Care Team (Late st Contact Info) Description 11/27/2006 Orders Only [facility] Primary Care - [address] [place] [address] Barak Greenberg MD [address] [facility] [address] [place] [address] Social History Tobacco Use Types Packs/Day Years Used Date Smoking Tobacco: Never Assessed Sex and Gender Information Value Date Recorded Sex Assigned at Not on file Gender Identity Not on file Sexual Orientation Not on file documented as of this encounter Progress Notes * Barak Greenberg MD - 12/24/2007 5:19 PM CDT TIME:02:18 pm PATIENT`S HOME PHONE: PATIENT`S WORK PHONE: PATIENT`S INSURANCE: [employer] [facility] WHO TOOK THE CALL: Arabella Davila A GENERAL INFORMATION PATIENT STATUS: Established Patient. LAST VISIT: 11-03-06 PCP: keon. ALTERNATIVE PHONE NUMBER: [phone] WHO CALLED: Patient called. CURRENT ALLERGY LIST: [facility] NUMBER: [phone] PROBLEMS: pt had miscarriage 09/10 got again and had miscarriage 11/24/06, pts anxiety increased and wants to know if you can increase her Lexapro now that she is not ?...sylwia SECTION 1: DOCTOR`S RESPONSE: mayda 11/27/06 at 02:32 pm okay to increase, if she wants to try to get again she should let me know, we should stop the lexapro MEDICATIONS: Call in to Pharmacy LEXAPRO ORAL TABLET 5 MG, 1 tab each day, 30 Dispensed, 5 Fills, status: DISCONTINUED, 11/27/2006, Comment: called to [phone]...sylwia. LEXAPRO ORAL TABLET 10 MG, 1 Every Day, 30 Dispensed, 11 Fills, status: NEW PRESCRIPTION, 11/27/2006. FINAL ACTION: starca 11/27/06 at 02:37 pm Spoke with patient 11/27/06 at 02:37 pm. Called pharmacy at 11/27/06 at 02:39 pm. ...sylwia Electronically Signed by: Arabella Davila on November documented in this encounter Plan of Treatment Upcoming Encounters Date Type Department Care Team (Late st Contact Info) Description 08/23/2024 11:15 AM CHIP MIXER Office Visit [facility] Oncology and Hematology - [place] [address] [place] [address] [facility] [address] [place] [id number] [place] [address] [place] [address] [address] [place] [address] documented as of this encounter Visit Diagnoses Not on filedocumented in this encounter Care Teams Facility Rehab Director Relationship Specialty Start Date End Date Roxanna Acosta MD PCP - General Family Practice 02/19/12 documented as of this encounter
--- OUTSIDE RECORDS SUMMARY | 2024-07-24 09:44 | XMS_ITS | Encounter Summary ---
Author Organization [facility] Address [address] [place] [address] Care Team Providers Care Ham Doctor Name Role Phone Roxanna Acosta MD Primary Care Provider Encounter Details Date Type Department Care Team (Late Contact Info) Description 04/22/2007 Outpatient Historical [facility] VAT OPERATOR - [address] [place] [address] Enrique Mckinney MD [address] [facility] [address] [place] [address] Social History Tobacco Use Types Packs/Day Years Used Date Smoking Tobacco: Never Assessed Sex and Gender Information Value Date Recorded Sex Assigned at Not on file Gender Identity Not on file Sexual Orientation Not on file documented as of this encounter Plan of Treatment Upcoming Encounters Date Type Department Care Team (Late Contact Info) Description 08/23/2024 11:15 AM LABOR RELATIONS DIRECTOR Office Visit [facility] Oncology and Hematology - Farzad [address] [facility] 200 [place] [address] Michele Smith MD 2227 [facility] [address] [place] [address] documented as of this encounter Visit Diagnoses Not on filedocumented in this encounter Care Teams Ham Doctor Relationship Specialty Start Date End Date Roxanna Acosta MD PCP - General Family Practice 02/19/12 documented as of this encounter
--- OUTSIDE RECORDS SUMMARY | 2024-07-24 09:44 | XMS_ITS | Encounter Summary ---
Author Organization [facility] Address [address] [place] [address] Care Team Providers Care Machine Stripper Cutter Name Role Phone Roxanna Acosta MD Primary Care Provider Encounter Details Date Type Department Care Team (Late st Contact Info) Description 11/19/2002 Outpatient Historical [facility] Primary Care - [address] [place] [address] Otf Talavera Social History Tobacco Use Types Packs/Day Years Used Date Smoking Tobacco: Never Assessed Sex and Gender Information Value Date Recorded Sex Assigned at Not on file Gender Identity Not on file Sexual Orientation Not on file documented as of this encounter Plan of Treatment Upcoming Encounters Date Type Department Care Team (Late st Contact Info) Description 08/23/2024 11:15 AM ROLL OUT MANAGER Office Visit [facility] Oncology and Hematology - Farzad [address] [facility] 200 [place] [address] Michele Smith MD 2227 [facility] [address] [place] [address] documented as of this encounter Visit Diagnoses Not on filedocumented in this encounter Care Teams Machine Stripper Cutter Relationship Specialty Start Date End Date Roxanna Acosta MD PCP - General Family Practice 02/19/12 documented as of this encounter
--- OUTSIDE RECORDS SUMMARY | 2024-07-24 09:44 | XMS_ITS | Encounter Summary ---
Author Organization [facility] Address [address] [place] [address] Care Team Providers Care Drawing Kiln Supervisor Name Role Phone Roxanna Acosta MD Primary Care Provider Encounter Details Date Type Department Care Team (Late st Contact Info) Description 09/02/2003 Outpatient Historical [facility] Primary Care - [address] [place] [address] Otf Talavera Social History Tobacco Use Types Packs/Day Years Used Date Smoking Tobacco: Never Assessed Sex and Gender Information Value Date Recorded Sex Assigned at Not on file Gender Identity Not on file Sexual Orientation Not on file documented as of this encounter Plan of Treatment Upcoming Encounters Date Type Department Care Team (Late st Contact Info) Description 08/23/2024 11:15 AM FARMWORKER GRAIN Office Visit [facility] Oncology and Hematology - Farzad [address] [facility] 200 [place] [address] Michele Smith MD 2227 [facility] [address] [place] [address] documented as of this encounter Visit Diagnoses Not on filedocumented in this encounter Care Teams Drawing Kiln Supervisor Relationship Specialty Start Date End Date Roxanna Acosta MD PCP - General Family Practice 02/19/12 documented as of this encounter
--- OUTSIDE RECORDS SUMMARY | 2024-07-24 09:44 | XMS_ITS | Encounter Summary ---
Author Organization [facility] Address [address] [place] [address] Care Team Providers Care Senior Billing Consultant Name Role Phone Barak Greenberg MD Primary Care Provider [phone] Encounter Details Date Type Department Care Team (Late st Contact Info) Description 11/03/2006 Orders Only [facility] Primary Care - [address] [place] [address] Barak Greenberg MD [address] [facility] [address] [place] [address] Social History Tobacco Use Types Packs/Day Years Used Date Smoking Tobacco: Never Assessed Sex and Gender Information Value Date Recorded Sex Assigned at Not on file Gender Identity Not on file Sexual Orientation Not on file documented as of this encounter Progress Notes * Barak Greenberg MD - 12/24/2007 1:27 PM CDT TIME:01:51 pm PATIENT`S HOME PHONE: PATIENT`S WORK PHONE: PATIENT`S INSURANCE: [employer] [facility] WHO TOOK THE CALL: Barak Greenberg D GENERAL INFORMATION PHARMACY NUMBER: [phone] SECTION 1: DOCTOR`S RESPONSE: mayda 11/03/06 at 01:51 pm I discussed her case with dr almanza who will planto see her for ob care, he felt that the lexapro was a good choice but to avoid xanax, please call her at [phone] and call out medication below, we will start at low dose MEDICATIONS: Call in to Pharmacy LEXAPRO ORAL TABLET 5 MG, 1 tab each day, 30 Dispensed, 5 Fills, status: NEW PRESCRIPTION, 11/03/2006. FINAL ACTION: starca 11/03/06 at 01:58 pm Spoke with patient 11/03/06 at 01:58 pm. Called pharmacy at 11/03/06 at 01:58 pm. ...sylwia Electronically Signed by: Arabella Davila on Friday, November 03, 2006 * Barak Greenberg MD - 12/24/2007 1:26 PM CDT WEIGHT: 132lbs BLOOD PRESSURE: 114/70 Right Arm Sitting TEMPERATURE: 97.9??f Oral NURSE NAME: Sussy Duran M ALLERGIES: Allergies are as listed. MEDICATIONS: Patient is taking no medications at present. CHIEF COMPLAINT anxiety with tears ,crying.pt 4 weeks and recent miscarriage HISTORY: HISTORY: cell number: [phone]-ANXIETY The condition has worsened. The patient has symptoms of feeling depressed, has a loss of interest in usual activities, has feelings of worthlessness, voices no suicidal ideations, has symptoms of feeling overwhelmed, has anxiety. PHYSICAL EXAMINATION: CONSTITUTIONAL: GENERAL APPEARANCE: MILDLY DISTRESSED. NECK/THYROID: Trachea midline. No thyroid enlargement, tenderness, or mass. No supraclavicular or cervical adenopathy. RESPIRATORY: Clear to auscultation and percussion. Normal respiratory effort. CARDIOVASCULAR: CARDIAC: Regular rhythm. No murmurs, rubs, or gallops. ARTERIAL: No aortic bruits. EDEMA/VARICOSITIES OF EXTREMITIES: No edema or varicosities. GASTROINTESTINAL: ABDOMEN: Soft, non-tender, without masses. Bowel sounds active. LIVER/SPLEEN/KIDNEY: No hepatosplenomegaly, tenderness or nodularity. Kidneys not palpable. ASSESSMENT/PLAN: 300.00-ANXIETY ASSESSMENT: The patient's anxiety has worsened.discussed with omar Diehl to start lexapro 5mg SPECIALTY REFERRAL: TELECASTING TECHNICIAN Dr. Otf Wright ph: [phone] ph: [phone] ph: [phone] fax: [phone]. Electronically Signed by: Barak Greenberg MD on May documented in this encounter Plan of Treatment Upcoming Encounters Date Type Department Care Team (Late st Contact Info) Description 08/23/2024 11:15 AM BOAT MOTOR MECHANIC Office Visit [facility] Oncology and Hematology - Farzad 2[address] [facility] [address] [place] [address] Michele Smith MD 2227 [facility] [address] [place] [address] documented as of this encounter Visit Diagnoses Not on filedocumented in this encounter Care Teams Senior Billing Consultant Relationship Specialty Start Date End Date Barak Greenberg MD [address] [facility] [address] [place] [address] PCP - General 02/17/04 01/14/12 documented as of this encounter
--- OUTSIDE RECORDS SUMMARY | 2024-07-24 09:44 | XMS_ITS | Encounter Summary ---
Author Organization [facility] Address [address] [place] [address] Care Team Providers Care Crosscutter Rolled Glass Name Role Phone Roxanna Acosta MD Primary Care Provider Encounter Details Date Type Department Care Team (Late st Contact Info) Description 05/01/[address] [facility] Primary Care - [facility] [address] [facility] [address] [place] [address] Barak Greenberg MD 95[address] [facility] [address] [place] [address] Social History Tobacco Use Types Packs/Day Years Used Date Smoking Tobacco: Never Assessed Sex and Gender Information Value Date Recorded Sex Assigned at Not on file Gender Identity Not on file Sexual Orientation Not on file documented as of this encounter Progress Notes * Barak Greenberg MD - 05/17/2008 6:57 PM CDT MMG ANA POP [facility] BARAK GREENBERG MD [address] [place] [address] May 01, 2006 ASHOK JIMENEZ [address] [place] [address] ASHOK JAQUI has been under our care during the dates below: 05/01/2006 May return to school: 05/02/2006 Sincerely yours, BARAK GREENBERG MD * Barak Greenberg MD - 05/17/2008 6:57 PM CDT WEIGHT: 140lbs BLOOD PRESSURE: 110/60 Right Arm Sitting TEMPERATURE: 96.1??f Oral NURSE NAME: Helen Marroquin ALLERGIES: No known drug allergies. MEDICATIONS: Patient is taking no medications at present. CHIEF COMPLAINT Patient complains of chest congestion, head congestion, sinus congestion, nasal congestion, tension headache.left ear pain x 2 days HISTORY: HISTORY: 381.01-OTITIS MEDIA ACUTE SEROUS The patient's otitis media has worsened. The patient denies havingchills, denies having a fever, denies recurrent infections. HISTORY OF PRESENT ILLNESS: EARACHE: The symptoms began approximately 2 days ago. The predominance of symptoms are from the left ear. The patient has no symptoms of chest congestion, has no symptoms of chest pain, has no symptoms of cough, has symptoms of ear drainage, has symptoms of left ear pain. ROS: PHYSICAL EXAMINATION: CONSTITUTIONAL: GENERAL APPEARANCE: Healthy appearing patient in no distress. EARS, NOSE, MOUTH AND THROAT: EXTERNAL/EARS AND NOSE: External left ear exam normal. EARS: BULGING TYMPANIC MEMBRANE NOTED IN THE LEFT EAR, EFFUSION PRESENT IN THE LEFT EAR, LEFT TYMPANIC MEMBRANE INFLAMED, REDUCED LIGHT REFLEX. LANDMARKS PARTIALLY OBSCURED IN THE LEFT EAR. ASSESSMENT/PLAN: 381.01-OTITIS MEDIA ACUTE SEROUS ASSESSMENT: The patient's acute otitis media has not changed, acute otitis media has worsened. Willstart medication for better control. MEDICATIONS: AUGMENTIN ORAL TABLET 875-125 MG, 1 Two Times A Day, 20 Dispensed, status: NEW PRESCRIPTION, 05/01/2006. Electronically Signed by: Barak Greenberg MD on Tuesday, May 02, 2006 documented in this encounter Plan of Treatment Upcoming Encounters Date Type Department Care Team (Late st Contact Info) Description 08/23/2024 11:15 AM VICE PRESIDENT RESEARCH Office Visit [facility] Oncology and Hematology - Farzad 2227 [facility] [address] [place] [address] Michele Smith MD 2227 [facility] [address] [place] [address] documented as of this encounter Visit Diagnoses Not on filedocumented in this encounter Care Teams Crosscutter Rolled Glass Relationship Specialty Start Date End Date Roxanna Acosta MD PCP - General Family Practice 02/19/12 documented as of this encounter
--- OUTSIDE RECORDS SUMMARY | 2024-07-24 09:44 | XMS_ITS | Encounter Summary ---
Author Organization [facility] Address [address] [place] [address] Care Team Providers Care Lending Activities Supervisor Name Role Phone Roxanna Acosta MD Primary Care Provider [phone] Encounter Details Date Type Department Care Team (Late st Contact Info) Description 11/14/2003 Outpatient Historical [facility] Primary Care - [address] [place] [address] Otf Talavera Social History Tobacco Use Types Packs/Day Years Used Date Smoking Tobacco: Never Assessed Sex and Gender Information Value Date Recorded Sex Assigned at Not on file Gender Identity Not on file Sexual Orientation Not on file documented as of this encounter Plan of Treatment Upcoming Encounters Date Type Department Care Team (Late st Contact Info) Description 08/23/2024 11:15 AM CLOTH INSPECTOR Office Visit [facility] Oncology and Hematology - Farzad [address] Tash[address]anc[address] [facility] 200 [place] [address] Michele Smith MD [address] [facility] [address] [place] [address] documented as of this encounter Visit Diagnoses Not on filedocumented in this encounter Care Teams Lending Activities Supervisor Relationship Specialty Start Date End Date Roxanna Acosta MD PCP - General Family Practice 02/19/12 documented as of this encounter
--- OUTSIDE RECORDS SUMMARY | 2024-07-24 09:44 | XMS_ITS | Encounter Summary ---
Author Organization [facility] Address [address] [place] [address] Care Team Providers Care Casing Trimmer Name Role Phone Roxanna Acosta MD Primary Care Provider Encounter Details Date Type Department Care Team (Late Contact Info) Description 07/15/2007 Outpatient Historical [facility] LETTER OF CREDIT DOCUMENT EXAMINER - [address] [place] [address] Enrique Mckinney MD 6[address] [facility] [address] [place] [address] Social History Tobacco Use Types Packs/Day Years Used Date Smoking Tobacco: Never Assessed Sex and Gender Information Value Date Recorded Sex Assigned at Not on file Gender Identity Not on file Sexual Orientation Not on file documented as of this encounter Plan of Treatment Upcoming Encounters Date Type Department Care Team (Late Contact Info) Description 08/23/2024 11:15 AM MARKET INTELLIGENCE CONSULTANT Office Visit [facility] Oncology and Hematology - Farzad [address] [place] [address] Michele Smith MD 2[address] [facility] [address] [place] [address] documented as of this encounter Visit Diagnoses Not on filedocumented in this encounter Care Teams Casing Trimmer Relationship Specialty Start Date End Date Roxanna Acosta MD PCP - General Family Practice 02/19/12 documented as of this encounter
--- OUTSIDE RECORDS SUMMARY | 2024-07-24 09:44 | XMS_ITS | Encounter Summary ---
Author Organization [facility] Address [address] [place] [address] Care Team Providers Care Drug Abuse Worker Name Role Phone Roxanna Acosta MD Primary Care Provider Encounter Details Date Type Department Care Team (Late Contact Info) Description 12/09/2005 Outpatient Historical [facility] Primary Care - [address] [place] [address] Barak Greenberg MD [address] [facility] [address] [place] [address] Social History Tobacco Use Types Packs/Day Years Used Date Smoking Tobacco: Never Assessed Sex and Gender Information Value Date Recorded Sex Assigned at Not on file Gender Identity Not on file Sexual Orientation Not on file documented as of this encounter Last Filed Vital Signs Vital Sign Reading Time Taken Comments Blood Pressure 120/60 12/09/2005 3:30 PM CDT Pulse - - Temperature 36.4 ??C (97.5 ??F) 12/09/2005 3:30 PM CD T Respiratory Rate - - Oxygen Saturation - - Inhaled Oxygen Concentration - - Weight 68.9 kg (152 lb) 12/09/2005 3:30 PM CDT Height - - Body Mass Index - - documented in this encounter Plan of Treatment Upcoming Encounters Date Type Department Care Team (Late st Contact Info) Description 08/23/2024 11:15 AM ENTRY LEVEL CHEMIST Office Visit [facility] Oncology and Hematology - Farzad [address]anc[address] [address] Michele Smith MD [facility] [address] [place] [address] documented as of this encounter Visit Diagnoses Not on filedocumented in this encounter Care Teams Drug Abuse Worker Relationship Specialty Start Date End Date Roxanna Acosta MD PCP - General Family Practice 02/19/12 documented as of this encounter
--- OUTSIDE RECORDS SUMMARY | 2024-07-24 09:44 | XMS_ITS | Encounter Summary ---
Author Organization [facility] Address [address] [place] [address] Care Team Providers Care Tandem Mill Sticker Name Role Phone Roxanna Acosta MD Primary Care Provider Encounter Details Date Type Department Care Team (Late st Contact Info) Description 05/31/2002 Outpatient Historical [facility] Primary Care - [address] [place] [address] Otf Talavera Social History Tobacco Use Types Packs/Day Years Used Date Smoking Tobacco: Never Assessed Sex and Gender Information Value Date Recorded Sex Assigned at Not on file Gender Identity Not on file Sexual Orientation Not on file documented as of this encounter Plan of Treatment Upcoming Encounters Date Type Department Care Team (Late st Contact Info) Description 08/23/2024 11:15 AM OUTSIDE B2B SALES Office Visit [facility] Oncology and Hematology - Farz[place] [address] [facility] [address] [place] [address] Michele Smith MD [address] [facility] [address] [place] [address] documented as of this encounter Visit Diagnoses Not on filedocumented in this encounter Care Teams Tandem Mill Sticker Relationship Specialty Start Date End Date Roxanna Acosta MD PCP - General Family Practice 02/19/12 documented as of this encounter
--- OUTSIDE RECORDS SUMMARY | 2024-07-24 09:44 | XMS_ITS | Encounter Summary ---
Author Organization [facility] Address [address] [place] [address] Care Team Providers Care Roller Skater Name Role Phone Roxanna Acosta MD Primary Care Provider [phone] Encounter Details Date Type Department Care Team (Late st Contact Info) Description 12/29/[address] [facility] Primary Care - [address] [place] [address] Otf Talavera Social History Tobacco Use Types Packs/Day Years Used Date Smoking Tobacco: Never Assessed Sex and Gender Information Value Date Recorded Sex Assigned at Not on file Gender Identity Not on file Sexual Orientation Not on file documented as of this encounter Plan of Treatment Upcoming Encounters Date Type Department Care Team (Late st Contact Info) Description 08/23/2024 11:15 AM COMMUNICATIONS PLANNER Office Visit [facility] Oncology and Hematology - Far[place] [address]anc[address] [facility] 200 [place] [address] Michele Smith MD [address] [facility] [address] [place] [address] documented as of this encounter Visit Diagnoses Not on filedocumented in this encounter Care Teams Roller Skater Relationship Specialty Start Date End Date Roxanna Acosta MD PCP - General Family Practice 02/19/12 documented as of this encounter
--- OUTSIDE RECORDS SUMMARY | 2024-07-24 09:44 | XMS_ITS | Encounter Summary ---
Author Organization [facility] Address [address] [place] [address] Care Team Providers Care Plywood Stock Grader Name Role Phone Roxanna Acosta MD Primary Care Provider [phone] Encounter Details Date Type Department Care Team (Latest Contact Info) Description 10/26/2004 Outpatient Historical HIS PATIENT IN A BED Freddie Márquez OTHER CURR COND-ANTEPARTUM (Primary Dx) Social History Tobacco Use Types Packs/Day Years Used Date Smoking Tobacco: Never Assessed Sex and Gender Information Value Date Recorded Sex Assigned at Not on file Gender Identity Not on file Sexual Orientation Not on file documented as of this encounter Plan of Treatment Upcoming Encounters Date Type Department Care Team (Late st Contact Info) Description 08/23/2024 11:15 AM INDUSTRIAL SERVICE TECHNICIAN Office Visit [facility] Oncology and Hematology - Farzad [address] [facility] [address] [place] [address] Michele Smith MD [address] [facility] [address] [place] [address] documented as of this encounter Procedures Procedure Name Priority Date/Time Associated Diagnosis Comments CBC WITH DIFFERENTIAL Routine 10/26/2004 11:50 AM INDUSTRIAL SERVICE TECHNICIAN CBC WITH DIFFERENTIAL Routine 10/26/2004 11:50 AM INDUSTRIAL SERVICE TECHNICIAN URINALYSIS W/REFLEX MICROSCOPIC Routine 10/26/2004 11:50 AM INDUSTRIAL SERVICE TECHNICIAN URINALYSIS W/REFLEX MICROSCOPIC Routine 10/26/2004 11:15 AM INDUSTRIAL SERVICE TECHNICIAN documented in this encounter Results * URINALYSIS (10/26/2004 11:50 AM INDUSTRIAL SERVICE TECHNICIAN) COLOR UA Yellow INTERFACE SYSTEM CLARITY UA Clear Clear INTERFACE SYSTEM SPECIFIC GRAVITY UA 1.005 1.001 - 1.035 INTERFACE SYSTEM PH UA 6.5 5.0 - 8.0 INTERFACE SYSTEM LEUKOCYTE ESTERASE UA Negative Negative INTERFACE SYSTEM NITRITE UA Negative Negative INTERFACE SYSTEM PROTEIN UA Negative Negative INTERFACE SYSTEM GLUCOSE UA Negative Negative INTERFACE SYSTEM KETONES UA Negative Negative INTERFACE SYSTEM UROBILINOGEN UA <1 <1 EU INTE RFACE SYSTEM BILIRUBIN UA Negative Negative INTERFA CE SYSTEM BLOOD UA Negative Negative INTERFACE SYSTEM WBC UA 1 0 - 5 /HPF INTERFACE SYSTEM EPITHELIAL CELLS, URINE 0-2 /HPF INTERFACE SYSTEM 10/26/2004 11:5 0 AM INDUSTRIAL SERVICE TECHNICIAN Freddie Márquez URINE ORDERABLES Performing Organization Address [facility] Phone Number INTERFACE SYSTEM Refer to clinic/hospital department * (ABNORMAL) CBC WITH DIFFERENTIAL (10/26/2004 11:50 AM INDUSTRIAL SERVICE TECHNICIAN) NEUTROPHILS 74(H) 45 - 70 % INTERFAC E SYSTEM LYMPHOCYTES 19 16 - 45 % INTERFAC E SYSTEM MONOCYTES 7 3 - 13 % INTERFACE SYSTEM EOSINOPHILS 0 0 - 7 % INTERFAC E SYSTEM BASOPHILS 0 0 - 2 % INTERFACE SYSTEM NEUTROPHIL ABSOLUTE 5.58 1.90 - 7.00 K/uL INTERFACE SYSTEM LYMPHOCYTE ABSOLUTE 1.43 0.70 - 4.50 K/uL INTERFACE SYSTEM MONOCYTE ABSOLUTE 0.54 0.10 - 1.30 K/uL INTERFACE SYSTEM EOSINOPHIL ABSOLUTE 0.02 0.00 - 0.70 K/uL INTERFACE SYSTEM BASOPHILS ABSOLUTE 0.01 0.00 - 0.20 K/uL INTERFACE SYSTEM 10/26/2004 11:5 0 AM INDUSTRIAL SERVICE TECHNICIAN Freddie Márquez HEMATOLOGY ORDERABLE S Performing Organization Address [facility] Phone Number INTERFACE SYSTEM Refer to clinic/hospital department * (ABNORMAL) CBC WITH DIFFERENTIAL (10/26/2004 11:50 AM INDUSTRIAL SERVICE TECHNICIAN) WBC 7.6 4.0 - 9.8 K/uL INTERFACE SYSTEM RBC 4.16 3.90 - 4.90 M/uL INTERFACE SYSTEM HEMOGLOBIN 11.6(L) 11.8 - 14.8 g/dL INTERFACE SYSTEM HEMATOCRIT 36.2 35.5 - 44.0 % INTERFACE SYSTEM MCV 87.0 82.0 - 99.0 fL INTERFACE SYSTEM MCH 27.9 27.2 - 32.6 pg INTERFACE SYSTEM MCHC 32.0 31.5 - 35.5 % INTERFACE SYSTEM RDW 14.4 11.5 - 14.5 % INTERFACE SYSTEM RDW-STDEV 46.2 37.1 - 48.7 fL INTERFACE SYSTEM PLATELETS 190 140 - 350 K/uL INTERFACE SYSTEM MPV 11.4 9.3 - 12.4 fL INTERFACE SYSTEM 10/26/2004 11:5 0 AM INDUSTRIAL SERVICE TECHNICIAN Freddie Aragona HEMATOLOGY ORDERABLE S Performing Organization Address [facility] [place] Phone Number INTERFACE SYSTEM Refer to clinic/hospital department * (ABNORMAL) URINALYSIS (10/26/2004 11:15 AM INDUSTRIAL SERVICE TECHNICIAN) COLOR UA Colorless INTERFACE SYSTEM CLARITY UA Clear Clear INTERFACE SYSTEM SPECIFIC GRAVITY UA <1.005(L) 1.001 - 1.035 INTERFACE SYSTEM Comment:Results confirmed by 2nd methodology. PH UA 6.0 5.0 - 8.0 INTERFACE SYSTEM LEUKOCYTE ESTERASE UA 1+(A) Negative INTERFACE SYSTEM NITRITE UA Negative Negative INTERFACE SYSTEM PROTEIN UA Negative Negative INTERFACE SYSTEM GLUCOSE UA Negative Negative INTERFACE SYSTEM KETONES UA Negative Negative INTERFACE SYSTEM UROBILINOGEN UA <1 <1 EU INTE RFACE SYSTEM BILIRUBIN UA Negative Negative INTERFA CE SYSTEM BLOOD UA Negative Negative INTERFACE SYSTEM WBC UA 2 0 - 5 /HPF INTERFACE SYSTEM BACTERIA UA 4+(A) None Seen /HPF INTERFACE SYSTEM EPITHELIAL CELLS, URINE 2-5 /HPF INTERFACE SYSTEM 10/26/2004 11:1 5 AM INDUSTRIAL SERVICE TECHNICIAN Freddie Márquez URINE ORDERABLES Performing Organization Address [facility] Co de Phone Number INTERFACE SYSTEM Refer to clinic/hospital department documented in this encounter Visit Diagnoses Diagnosis Other current maternal conditions classifiable elsewhere, antepartum- Primary documented in this encounter Care Teams Plywood Stock Grader Relationship Specialty Start Date End Date Roxanna Acosta MD PCP - General Family Practice 02/19/12 documented as of this encounter
--- OUTSIDE RECORDS SUMMARY | 2024-07-24 09:44 | XMS_ITS | Encounter Summary ---
Author Organization [facility] Address [address] [place] [address] Care Team Providers Care Automation Test Engineer Name Role Phone Roxanna Acosta MD Primary Care Provider [phone] Encounter Details Date Type Department Care Team (Late st Contact Info) Description 07/07/2002 Outpatient Historical [facility] Primary Care - [address] [place] [address] Otf Talavera Social History Tobacco Use Types Packs/Day Years Used Date Smoking Tobacco: Never Assessed Sex and Gender Information Value Date Recorded Sex Assigned at Not on file Gender Identity Not on file Sexual Orientation Not on file documented as of this encounter Plan of Treatment Upcoming Encounters Date Type Department Care Team (Late st Contact Info) Description 08/23/2024 11:15 AM WORK COUNSELOR Office Visit [facility] Oncology and Hematology - [place] [address] [facility] 200 [place] [address] Michele Smith MD [address] [facility] [address] [place] [address] documented as of this encounter Visit Diagnoses Not on filedocumented in this encounter Care Teams Automation Test Engineer Relationship Specialty Start Date End Date Roxanna Acosta MD PCP - General Family Practice 02/19/12 documented as of this encounter
--- OUTSIDE RECORDS SUMMARY | 2024-07-24 09:44 | XMS_ITS | Encounter Summary ---
Author Organization [facility] Address [address] [place] [address] Care Team Providers Care Marine Plumber Name Role Phone Roxanna Acosta MD Primary Care Provider Encounter Details Date Type Department Care Team (Late Contact Info) Description 06/18/2007 Outpatient Historical [facility] CARD PUNCHER - Medical [address] [address] Enrique Mckinney MD [address] [address] Social History Tobacco Use Types Packs/Day Years Used Date Smoking Tobacco: Never Assessed Sex and Gender Information Value Date Recorded Sex Assigned at Not on file Gender Identity Not on file Sexual Orientation Not on file documented as of this encounter Plan of Treatment Upcoming Encounters Date Type Department Care Team (Late Contact Info) Description 08/23/2024 11:15 AM TAKE OFF WORKER Office Visit [facility] Oncology and Hematology - Far[place] [address]anc[address] [facility] 200 [place] [address] Michele Smith MD [address] [facility] [address] [place] [address] documented as of this encounter Visit Diagnoses Not on filedocumented in this encounter Care Teams Marine Plumber Relationship Specialty Start Date End Date Roxanna Acosta MD PCP - General Family Practice 02/19/12 documented as of this encounter
--- OUTSIDE RECORDS SUMMARY | 2024-07-24 09:44 | XMS_ITS | Encounter Summary ---
Author Organization [facility] Address [address] [place] [address] Care Team Providers Care Auto Mechanic Supervisor Name Role Phone Roxanna Acosta MD Primary Care Provider Encounter Details Date Type Department Care Team (Latest Contact Info) Description 10/14/2005 Outpatient Historical [facility] PREADMIT Kelechi Dixon MD NO ADDRESS ON FILE Other Current Maternal Conditions Classifiable Elsewhere, Antepartum (Primary Dx) Social History Tobacco Use Types Packs/Day Years Used Date Smoking Tobacco: Never Assessed Sex and Gender Information Value Date Recorded Sex Assigned at Not on file Gender Identity Not on file Sexual Orientation Not on file documented as of this encounter Plan of Treatment Upcoming Encounters Date Type Department Care Team (Late st Contact Info) Description 08/23/2024 11:15 AM CONTRACT ADMINISTRATION MANAGER Office Visit [facility] Oncology and Hematology - Farzad [address] [facility] 200 [place] [address] Michele Smith MD [address] [facility] [address] [place] [address] documented as of this encounter Visit Diagnoses Diagnosis Other current maternal conditions classifiable elsewhere, antepartum- Primary documented in this encounter Care Teams Auto Mechanic Supervisor Relationship Specialty Start Date End Date Roxanna Acosta MD PCP - General Family Practice 02/19/12 documented as of this encounter
--- OUTSIDE RECORDS SUMMARY | 2024-07-24 09:44 | XMS_ITS | Encounter Summary ---
Author Organization [facility] Address [address] [place] [address] Care Team Providers Care Inseminator Name Role Phone Roxanna Acosta MD Primary Care Provider Encounter Details Date Type Department Care Team (Latest Contact Info) Description 11/21/2004 Inpatient Historical HIS PATIENT IN A BED Freddie Márquez W 1 DEG TERRENCE (Primary Dx) Social History Tobacco Use Types Packs/Day Years Used Date Smoking Tobacco: Never Assessed Sex and Gender Information Value Date Recorded Sex Assigned at Not on file Gender Identity Not on file Sexual Orientation Not on file documented as of this encounter Plan of Treatment Upcoming Encounters Date Type Department Care Team (Late st Contact Info) Description 08/23/2024 11:15 AM PEANUT SEPARATOR Office Visit [facility] Oncology and Hematology - Farzad [address] [facility] 200 [place] [address] Michele Smith MD 2[address] [facility] [address] [place] [address] documented as of this encounter Visit Diagnoses Diagnosis First-degree perineal laceration, with delivery- Primary documented in this encounter Care Teams Inseminator Relationship Specialty Start Date End Date Roxanna Acosta MD PCP - General Family Practice 02/19/12 documented as of this encounter
--- OUTSIDE RECORDS SUMMARY | 2024-07-24 09:44 | XMS_ITS | Encounter Summary ---
Author Organization [facility] Address [address] [place] [address] Care Team Providers Care Special Services Director Name Role Phone Roxanna Acosta MD Primary Care Provider [phone] Encounter Details Date Type Department Care Team (Late Contact Info) Description 05/01/2006 Outpatient Historical [facility] Primary Care - [address] [place] [address] Barak Greenberg MD [address] [facility] [address] [place] [address] Social History Tobacco Use Types Packs/Day Years Used Date Smoking Tobacco: Never Assessed Sex and Gender Information Value Date Recorded Sex Assigned at Not on file Gender Identity Not on file Sexual Orientation Not on file documented as of this encounter Last Filed Vital Signs Vital Sign Reading Time Taken Comments Blood Pressure 110/60 05/01/2006 3:30 PM CDT Pulse - - Temperature 35.6 ??C (96.1 ??F) 05/01/2006 3:30 PM CD T Respiratory Rate - - Oxygen Saturation - - Inhaled Oxygen Concentration - - Weight 63.5 kg (140 lb) 05/01/2006 3:30 PM CDT Height - - Body Mass Index - - documented in this encounter Plan of Treatment Upcoming Encounters Date Type Department Care Team (Late st Contact Info) Description 08/23/2024 11:15 AM COOKER MECHANIC Office Visit [facility] Oncology and Hematology - Farzad [address] [id number] Michele Smith MD [facility] [facility] [address] [place] [address] documented as of this encounter Visit Diagnoses Not on filedocumented in this encounter Care Teams Special Services Director Relationship Specialty Start Date End Date Roxanna Acosta MD PCP - General Family Practice 02/19/12 documented as of this encounter
--- OUTSIDE RECORDS SUMMARY | 2024-07-24 09:44 | XMS_ITS | Encounter Summary ---
Author Organization [facility] Address [address] [facility] Attn: [place] [address] Care Team Providers Care Clinical Reimbursement Specialist Name Role Phone Barak Greenberg MD Primary Care Provider [phone] Encounter Details Date Type Department Care Team (Latest Contact Info) Description 12/09/2005 Orders Only Conversion, History Social History Tobacco Use Types Packs/Day Years Used Date Smoking Tobacco: Never Assessed Sex and Gender Information Value Date Recorded Sex Assigned at Not on file Gender Identity Not on file Sexual Orientation Not on file documented as of this encounter Progress Notes * Conversion, History - 01/06/2008 7:35 PM CDT documented in this encounter Plan of Treatment Upcoming Encounters Date Type Department Care Team (Late st Contact Info) Description 08/23/2024 11:15 AM RADIOLOGICAL TECHNOLOGIST Office Visit [facility] Oncology and Hematology - Farzad [address] [facility] 200 [place] [address] Michele Smith MD [address] [facility] [address] [place] [address] documented as of this encounter Visit Diagnoses Not on filedocumented in this encounter Care Teams Clinical Reimbursement Specialist Relationship Specialty Start Date End Date Barak Greenberg MD [address] [facility] [address] [place], [place] [id number] PCP - General 02/17/04 01/14/12 documented as of this encounter
--- OUTSIDE RECORDS SUMMARY | 2024-07-24 09:44 | XMS_ITS | Encounter Summary ---
Author Organization [facility] Address [address] [place] [address] Care Team Providers Care Forest Fire Specialist Supervisor Name Role Phone Roxanna Acosta MD Primary Care Provider Encounter Details Date Type Department Care Team (Late st Contact Info) Description 02/17/2004 Outpatient Historical [facility] Barak Greenberg MD [address] [facility] [address] [place] [address] ABDOMINAL PAIN LUQ (Primary Dx) Social History Tobacco Use Types Packs/Day Years Used Date Smoking Tobacco: Never Assessed Sex and Gender Information Value Date Recorded Sex Assigned at Not on file Gender Identity Not on file Sexual Orientation Not on file documented as of this encounter Plan of Treatment Upcoming Encounters Date Type Department Care Team (Late Contact Info) Description 08/23/2024 11:15 AM MOLDING CUTTER Office Visit [facility] Oncology and Hematology - Farzad [address] [facility] 200 [place] [address] Michele Smith MD [address] [facility] [address] [place] [address] documented as of this encounter Visit Diagnoses Diagnosis Abdominal pain, left upper quadrant- Primary documented in this encounter Care Teams Forest Fire Specialist Supervisor Relationship Specialty Start Date End Date Roxanna Acosta MD PCP - General Family Practice 02/19/12 documented as of this encounter
--- OUTSIDE RECORDS SUMMARY | 2024-07-24 09:44 | XMS_ITS | Encounter Summary ---
Author Organization [facility] Address [address] [place] [address] Care Team Providers Care Cafe Associate Name Role Phone Barak Greenberg MD Primary Care Provider [phone] Encounter Details Date Type Department Care Team (Latest Contact Info) Description 04/03/2007 Orders Only HIS CONVERSION Conversion, History Social History Tobacco Use Types Packs/Day Years Used Date Smoking Tobacco: Never Assessed Sex and Gender Information Value Date Recorded Sex Assigned at Not on file Gender Identity Not on file Sexual Orientation Not on file documented as of this encounter Progress Notes * Conversion, History - 07/25/2008 2:31 PM DIRECTOR COMPENSATION CTOR COMPENSATION documented in this encounter Plan of Treatment Upcoming Encounters Date Type Department Care Team (Late st Contact Info) Description 08/23/2024 11:15 AM DIRECTOR COMPENSATION Office Visit [facility] Oncology and Hematology - Farzad [address]anc[address] [facility] 200 [place] [address] Michele Smith MD [address] [facility] [address] [place] [address] documented as of this encounter Visit Diagnoses Not on filedocumented in this encounter Care Teams Cafe Associate Relationship Specialty Start Date End Date Barak Greenberg MD [address] [facility] [address] [place] [address] PCP - General 02/17/04 01/14/12 documented as of this encounter
--- OUTSIDE RECORDS SUMMARY | 2024-07-24 09:44 | XMS_ITS | Encounter Summary ---
Author Organization [facility] Address [address] [place] [address] Care Team Providers Care Coat Feller Name Role Phone Roxanna Acosta MD Primary Care Provider [phone] Encounter Details Date Type Department Care Team (Late st Contact Info) Description 09/30/2003 Outpatient Historical [facility] Primary Care - [address] [place] [address] Otf Talavera Social History Tobacco Use Types Packs/Day Years Used Date Smoking Tobacco: Never Assessed Sex and Gender Information Value Date Recorded Sex Assigned at Not on file Gender Identity Not on file Sexual Orientation Not on file documented as of this encounter Plan of Treatment Upcoming Encounters Date Type Department Care Team (Late st Contact Info) Description 08/23/2024 11:15 AM RATE REVIEWER Office Visit [facility] Oncology and Hematology - Farzad [address] [facility] 200 [place] [address] Michele Smith MD [address] [facility] [address] [place] [address] documented as of this encounter Visit Diagnoses Not on filedocumented in this encounter Care Teams Coat Feller Relationship Specialty Start Date End Date Roxanna Acosta MD PCP - General Family Practice 02/19/12 documented as of this encounter
--- OUTSIDE RECORDS SUMMARY | 2024-07-24 09:44 | XMS_ITS | Encounter Summary ---
Author Organization [facility] Address [address] [place] [address] Care Team Providers Care Dobie Worker Name Role Phone Roxanna Acosta MD Primary Care Provider Encounter Details Date Type Department Care Team (Latest Contact Info) Description 06/14/2002 Outpatient Historical HIS CARDIOPULMONARY Otf Talavera UNDIAGNOSED CARDIAC MURMURS (Primary Dx) Social History Tobacco Use Types Packs/Day Years Used Date Smoking Tobacco: Never Assessed Sex and Gender Information Value Date Recorded Sex Assigned at Not on file Gender Identity Not on file Sexual Orientation Not on file documented as of this encounter Plan of Treatment Upcoming Encounters Date Type Department Care Team (Late st Contact Info) Description 08/23/2024 11:15 AM SENIOR ACCOUNT EXECUTIVE Office Visit [facility] Oncology and Hematology - Farzad [address] [facility] 200 [place] [address] Michele Smith MD [address] [facility] [address] [place] [address] documented as of this encounter Visit Diagnoses Diagnosis Undiagnosed cardiac murmurs- Primary documented in this encounter Care Teams Dobie Worker Relationship Specialty Start Date End Date Roxanna Acosta MD PCP - General Family Practice 02/19/12 documented as of this encounter
--- OUTSIDE RECORDS SUMMARY | 2024-07-24 09:44 | XMS_ITS | Encounter Summary ---
Author Organization [facility] Address [address] [place] [address] Care Team Providers Care Leasing Sales Consultant Name Role Phone Roxanna Acosta MD Primary Care Provider [phone] Encounter Details Date Type Department Care Team (Late Contact Info) Description 05/20/2007 Outpatient Historical [facility] ASSOCIATE PROFESSOR OF COUNSELING - [address] [place] [address] Enrique Mckinney MD [address] [facility] [address] [place] [address] Social History Tobacco Use Types Packs/Day Years Used Date Smoking Tobacco: Never Assessed Sex and Gender Information Value Date Recorded Sex Assigned at Not on file Gender Identity Not on file Sexual Orientation Not on file documented as of this encounter Plan of Treatment Upcoming Encounters Date Type Department Care Team (Late Contact Info) Description 08/23/2024 11:15 AM BASKET BOTTOM MACHINE OPERATOR Office Visit [facility] Oncology and Hematology - Farzad [address] [facility] 200 [place] [address] Michele Smith MD 2227 [facility] [address] [place] [address] documented as of this encounter Visit Diagnoses Not on filedocumented in this encounter Care Teams Leasing Sales Consultant Relationship Specialty Start Date End Date Roxanna Acosta MD PCP - General Family Practice 02/19/12 documented as of this encounter
--- OUTSIDE RECORDS SUMMARY | 2024-07-24 09:44 | XMS_ITS | Encounter Summary ---
Author Organization [facility] Address [address] [place] [address] Care Team Providers Care Survival Equipment Repairer Name Role Phone Roxanna Acosta MD Primary Care Provider Encounter Details Date Type Department Care Team (Late st Contact Info) Description 01/13/2003 Outpatient Historical [facility] Primary Care - [address] [place] [address] Otf Talavera Social History Tobacco [...] Contact Info) Description 08/23/2024 11:15 AM MANAGER TRANSIT Office Visit [facility] Oncology and Hematology - Farzad [address] [facility] 200 [place] [address] Michele Smith MD 2[address] [facility] [address] [place] [address] documented as of this encounter Visit Diagnoses Not on filedocumented in this encounter Care Teams Survival Equipment Repairer Relationship Specialty Start Date End Date Roxanna Acosta MD PCP - General Family Practice 02/19/12 documented as of this encounter
--- OUTSIDE RECORDS SUMMARY | 2024-07-24 09:44 | XMS_ITS | Encounter Summary ---
Author Organization [facility] Address [address] [place] [address] Care Team Providers Care Rn Lvn Name Role Phone Roxanna Acosta MD Primary Care Provider Encounter Details Date Type Department Care Team (Latest Contact Info) Description 10/07/2005 Outpatient Historical [facility] Cecil Schofield MD [address] [place] [address] Kelechi Dixon MD NO ADDRESS ON FILE Other Specified Complication, Antepartum (Primary Dx) Social History Tobacco Use Types Packs/Day Years Used Date Smoking Tobacco: Never Assessed Sex and Gender Information Value Date Recorded Sex Assigned at Not on file Gender Identity Not on file Sexual Orientation Not on file documented as of this encounter Plan of Treatment Upcoming Encounters Date Type Department Care Team (Late st Contact Info) Description 08/23/2024 11:15 AM REPAIRER CONTROLLER TESTER Office Visit [facility] Oncology and Hematology - Farzad 2[address] [facility] 200 [place] [address] Michele Smith MD 2227 [facility] [address] [place] [address] documented as of this encounter Procedures Procedure Name Priority Date/Time Associated Diagnosis Comments CBC WITH DIFFERENTIAL Routine 10/07/2005 2:54 PM REPAIRER CONTROLLER TESTER CBC WITH DIFFERENTIAL Routine 10/07/2005 2:54 PM REPAIRER CONTROLLER TESTER documented in this encounter Results * (ABNORMAL) CBC WITH DIFFERENTIAL (10/07/2005 2:54 PM REPAIRER CONTROLLER TESTER) NEUTROPHILS 72(H) 45 - 70 % INTERFAC E SYSTEM LYMPHOCYTES 19 16 - 45 % INTERFAC E SYSTEM MONOCYTES 9 3 - 13 % INTERFACE SYSTEM EOSINOPHILS 0 0 - 7 % INTERFAC E SYSTEM BASOPHILS 0 0 - 2 % INTERFACE SYSTEM NEUTROPHIL ABSOLUTE 6.40 1.90 - 7.00 K/uL INTERFACE SYSTEM LYMPHOCYTE ABSOLUTE 1.68 0.70 - 4.50 K/uL INTERFACE SYSTEM MONOCYTE ABSOLUTE 0.80 0.10 - 1.30 K/uL INTERFACE SYSTEM EOSINOPHIL ABSOLUTE 0.03 0.00 - 0.70 K/uL INTERFACE SYSTEM BASOPHILS ABSOLUTE 0.01 0.00 - 0.20 K/uL INTERFACE SYSTEM 10/07/2005 2:54 PM REPAIRER CONTROLLER TESTER Kelechi Dixon MD HEMATOLOGY ORDERABLE S Performing Organization Address [facility] de Phone Number INTERFACE SYSTEM Refer to clinic/hospital department * (ABNORMAL) CBC WITH DIFFERENTIAL (10/07/2005 2:54 PM REPAIRER CONTROLLER TESTER) Pathologist [facility] WBC 8.9 4.0 - 9.8 K/uL INTERFACE SYSTEM RBC 4.36 3.90 - 4.90 M/uL INTERFACE SYSTEM HEMOGLOBIN 11.8 11.8 - 14.8 g/dL INTERFACE SYSTEM HEMATOCRIT 35.7 35.5 - 44.0 % INTERFACE SYSTEM MCV 81.9(L) 82.0 - 99.0 fL INTERFACE SYSTEM MCH 27.1(L) 27.2 - 32.6 pg INTERFACE SYSTEM MCHC 33.1 31.5 - 35.5 % INTERFACE SYSTEM RDW 13.6 11.5 - 14.5 % INTERFACE SYSTEM RDW-STDEV 40.9 37.1 - 48.7 fL INTERFACE SYSTEM PLATELETS 193 140 - 350 K/uL INTERFACE SYSTEM MPV 10.7 9.3 - 12.4 fL INTERFACE SYSTEM 10/07/2005 2:54 PM REPAIRER CONTROLLER TESTER Kelechi Dixon MD HEMATOLOGY ORDERABLE S INTERFACE SYSTEM Refer to clinic/hospital department documented in this encounter Visit Diagnoses Diagnosis Other specified complication, antepartum(646.83)- Primary Other specified complication, antepartum documented in this encounter Care Teams Rn Lvn Relationship Specialty Start Date End Date Roxanna Acosta MD PCP - General Family Practice 02/19/12 documented as of this encounter
--- OUTSIDE RECORDS SUMMARY | 2024-07-24 09:44 | XMS_ITS | Encounter Summary ---
Author Organization [facility] Address [address] [place] [address] Care Team Providers Care Weigh Machine Operator Name Role Phone Roxanna Acosta MD Primary Care Provider [phone] Encounter Details Date Type Department Care Team (Late st Contact Info) Description 07/06/[address] [facility] Primary Care - [address] [place] [address] Otf Talavera Social History Tobacco Use Types Packs/Day Years Used Date Smoking Tobacco: Never Assessed Sex and Gender Information Value Date Recorded Sex Assigned at Not on file Gender Identity Not on file Sexual Orientation Not on file documented as of this encounter Plan of Treatment Upcoming Encounters Date Type Department Care Team (Late st Contact Info) Description 08/23/2024 11:15 AM DIGITAL MARKETING PROGRAM MANAGER Office Visit [facility] Oncology and Hematology - Farzad [address] [facility] 200 [place] [address] Michele Smith MD 2[address] [facility] [address] [place] [address] documented as of this encounter Visit Diagnoses Not on filedocumented in this encounter Care Teams Weigh Machine Operator Relationship Specialty Start Date End Date Roxanna Acosta MD PCP - General Family Practice 02/19/12 documented as of this encounter
--- OUTSIDE RECORDS SUMMARY | 2024-07-24 09:44 | XMS_ITS | Encounter Summary ---
Author Organization [facility] Address [address] [place] [address] Care Team Providers Care Motor Power Connector Name Role Phone Roxanna Acosta MD Primary Care Provider Encounter Details Date Type Department Care Team (Late Contact Info) Description 07/15/2007 Outpatient Historical [facility] PHD INTERN - [address] [place] [address] Enrique Mckinney MD [address] [facility] [address] [place] [address] Social History Tobacco Use Types Packs/Day Years Used Date Smoking Tobacco: Never Assessed Sex and Gender Information Value Date Recorded Sex Assigned at Not on file Gender Identity Not on file Sexual Orientation Not on file documented as of this encounter Plan of Treatment Upcoming Encounters Date Type Department Care Team (Late Contact Info) Description 08/23/2024 11:15 AM AIRPORT OPERATIONS CREW MEMBER Office Visit [facility] Oncology and Hematology - Farzad [address] [facility] 200 [place] [address] Michele Smith MD 2[address] [facility] [address] [place] [address] documented as of this encounter Visit Diagnoses Not on filedocumented in this encounter Care Teams Motor Power Connector Relationship Specialty Start Date End Date Roxanna Acosta MD PCP - General Family Practice 02/19/12 documented as of this encounter
--- OUTSIDE RECORDS SUMMARY | 2024-07-24 09:44 | XMS_ITS | Encounter Summary ---
Author Organization [facility] Address [address] [place] [address] Care Team Providers Care Word Processor Name Role Phone Roxanna Acosta MD Primary Care Provider Encounter Details Date Type Department Care Team (Late st Contact Info) Description 09/15/2003 Outpatient Historical [facility] Primary Care - [address] [place] [address] Otf Talavera Social History Tobacco Use Types Packs/Day Years Used Date Smoking Tobacco: Never Assessed Sex and Gender Information Value Date Recorded Sex Assigned at Not on file Gender Identity Not on file Sexual Orientation Not on file documented as of this encounter Plan of Treatment Upcoming Encounters Date Type Department Care Team (Late st Contact Info) Description 08/23/2024 11:15 AM AZURE DEVELOPER Office Visit [facility] Oncology and Hematology - Farzad [address] [facility] 200 [place] [address] Michele Smith MD 2227 [facility] [address] [place] [address] documented as of this encounter Visit Diagnoses Not on filedocumented in this encounter Care Teams Word Processor Relationship Specialty Start Date End Date Roxanna Acosta MD PCP - General Family Practice 02/19/12 documented as of this encounter
--- OUTSIDE RECORDS SUMMARY | 2024-07-24 09:44 | XMS_ITS | Encounter Summary ---
Author Organization [facility] Address [address] [place] [address] Care Team Providers Care Director Regulatory Compliance Name Role Phone Roxanna Acosta MD Primary Care Provider [phone] Encounter Details Date Type Department Care Team (Late Contact Info) Description 02/15/2004 Outpatient Historical [facility] Primary Care - [address] [place] [address] Barak Greenberg MD [address] [facility] [address] [place] [address] Social History Tobacco Use Types Packs/Day Years Used Date Smoking Tobacco: Never Assessed Sex and Gender Information Value Date Recorded Sex Assigned at Not on file Gender Identity Not on file Sexual Orientation Not on file documented as of this encounter Plan of Treatment Upcoming Encounters Date Type Department Care Team (Late Contact Info) Description 08/23/2024 11:15 AM METAL MOCKUP MAKER Office Visit [facility] Oncology and Hematology - Farzad 2227 [facility] 200 [place] [address] Michele Smith MD 2227 [facility] [address] [place] [address] documented as of this encounter Visit Diagnoses Not on filedocumented in this encounter Care Teams Director Regulatory Compliance Relationship Specialty Start Date End Date Roxanna Acosta MD PCP - General Family Practice 02/19/12 documented as of this encounter
--- OUTSIDE RECORDS SUMMARY | 2024-07-24 09:44 | XMS_ITS | Encounter Summary ---
Author Organization [facility] Address [address] [place] [address] Care Team Providers Care Predatory Hunter Name Role Phone Roxanna Acosta MD Primary Care Provider Encounter Details Date Type Department Care Team (Late st Contact Info) Description 12/20/2002 Outpatient Historical [facility] Primary Care - [address] [place] [address] Otf Talavera Social History Tobacco Use Types Packs/Day Years Used Date Smoking Tobacco: Never Assessed Sex and Gender Information Value Date Recorded Sex Assigned at Not on file Gender Identity Not on file Sexual Orientation Not on file documented as of this encounter Plan of Treatment Upcoming Encounters Date Type Department Care Team (Late st Contact Info) Description 08/23/2024 11:15 AM SALES REPRESENTATIVE RURAL POWER Office Visit [facility] Oncology and Hematology - Farzad [address] [facility] 200 [place] [address] Michele Smith MD 2[address] [facility] [address] [place] [address] documented as of this encounter Visit Diagnoses Not on filedocumented in this encounter Care Teams Predatory Hunter Relationship Specialty Start Date End Date Roxanna Acosta MD PCP - General Family Practice 02/19/12 documented as of this encounter
--- OUTSIDE RECORDS SUMMARY | 2024-07-24 09:44 | XMS_ITS | Encounter Summary ---
Author Organization [facility] Address [address] [place] [address] Care Team Providers Care Ivory Carver Name Role Phone Roxanna Acosta MD Primary Care Provider Encounter Details Date Type Department Care Team (Late st Contact Info) Description 12/09/2005 Orders Only [facility] Primary Care - [address] [place] [address] Barak Greenberg MD [address] [facility] [address] [place] [address] Social History Tobacco Use Types Packs/Day Years Used Date Smoking Tobacco: Never Assessed Sex and Gender Information Value Date Recorded Sex Assigned at Not on file Gender Identity Not on file Sexual Orientation Not on file documented as of this encounter Progress Notes * Barak Greenberg MD - 05/13/2008 4:06 AM CDT TIME:09:47 am PATIENT`S HOME PHONE: PATIENT`S WORK PHONE: PATIENT`S INSURANCE: [employer] WHO TOOK THE CALL: Collin Park GENERAL INFORMATION PATIENT STATUS: Established Patient. LAST VISIT: 02-15-04 PCP: rian. ALTERNATIVE PHONE NUMBER: [phone] WHO CALLED: Patient called. CURRENT ALLERGY LIST: [facility] NUMBER: [phone] PROBLEMS: pt daughter had a staph infection and now the pt thinks she has a staph infection, pt hasa bump on waist line, it's filled with puss and getting bigger SECTION 1: REQUESTED ACTION longrr 12/09/05 at 09:50 am: MEDICATION REQUEST: Collin DOCTOR`S RESPONSE: mayda 12/09/05 at 10:05 am I can see at 3:30 today FINAL ACTION: salty 12/09/05 at 10:26 am Spoke with patient 12/09/05 at 10:26 am. Booked appointment: 5-8 3:30p...........Silva Electronically Signed by: Silva Calle on Friday, December 09, 2005 * Barak Greenberg MD - 05/13/2008 3:59 AM CDT TEMPERATURE: 97.5??f Oral WEIGHT: 152lbs BLOOD PRESSURE: 120/60 Left Arm Sitting NURSE NAME: Karen Gillespie D ALLERGIES: Allergies were reviewed. MEDICATIONS: RN/MA reviewed medications. CHIEF COMPLAINT possible staph infection,pt daughter had it HISTORY: HISTORY: .2-OTHER CELLULITIS AND ABSCESS patient has area of inflammation, redness, swelling with purulent drainage on left lower abdominal wall. Her daughter was recently treated for a staph infection of her buttocks. Patient denies fever, chills, sob, n/v/diarrhea PHYSICAL EXAMINATION: CONSTITUTIONAL: GENERAL APPEARANCE: Healthy appearing patient in no distress. NECK/THYROID: Trachea midline. No thyroid enlargement, tenderness, or mass. No supraclavicular or cervical adenopathy. RESPIRATORY: Clear to auscultation and percussion. Normal respiratory effort. CARDIOVASCULAR: CARDIAC: Regular rhythm. No murmurs, rubs, or gallops. EDEMA/VARICOSITIES OF EXTREMITIES: No edema or varicosities. SKIN: 5 x 5 cm area of erythema, indurated fluctuant area 1x1 cm in middle from which a small amt of purulent fluid was expressed ASSESSMENT/PLAN: 2.2-OTHER CELLULITIS AND ABSCESS counseled extensively on treatment, and eradication possible colonization with hibiclens MEDICATIONS: BACTROBAN EXTERNAL OINTMENT 2 %, apply twice daily, 30 Dispensed, status: NEW HISTORY, 12/09/2005. SPECIALTY REFERRAL: PODIATRY Dr. Mendez Panda ph: [phone] fax: [phone]. Electronically Signed by: Barak Greenberg MD on Friday, December 09, 2005 documented in this encounter Plan of Treatment Upcoming Encounters Date Type Department Care Team (Late st Contact Info) Description 08/23/2024 11:15 AM STUDENT SERVICES ADVISOR Office Visit [facility] Oncology and Hematology - Farzad 2227 [facility] 200 [place] [address] Michele Smith MD 2227 [facility] [address] [place] [address] documented as of this encounter Visit Diagnoses Not on filedocumented in this encounter Care Teams Ivory Carver Relationship Specialty Start Date End Date Roxanna Acosta MD PCP - General Family Practice 02/19/12 documented as of this encounter
--- OUTSIDE RECORDS SUMMARY | 2024-07-24 09:44 | XMS_ITS | Continuity of Care Document ---
Author Organization [employer] [facility] Address [address] [place] [address] Phone Care Team Providers Care Hydropress Operator Name Role Phone Trang Camille FORTUNE Unavailable [...] HG Pt inelig neg scrn depres OFFICE [id number] BODY MASS INDEX DOCD IMMUN ADMIN (INC [...] Diagnoses Date Provider Providers Copied on Encounter [facility] [facility], [address], [place], [place], [id number], tel:[phone] [facility] Complete Care No Information 3 Trang Obrien . [address] [place] [address], [id number] , . tel:[phone] [facility], [id number] [place] [address], [id number], tel:[phone] [facility] Complete Care No Information 2 Trang Obrien . [address] [place] [address], [id number] , . tel:[phone] PREVENTATIVE- EST: 40-64 [facility], [id number] [place] [address], [id number], tel:[phone] [facility] Complete Care preventive exam (chief complaint) Well woman exam with routine gynecological examEncounter for screening mammogram for malignant neoplasm of breastADHD, predominantly inattentive type 2 Trang Obrien . [address] [place] [address], [id number] , . tel:[phone] Referring Provider: Camille Costello, [address] [place] [address], [place], [address] . tel:[phone] OFFICE [id number] ANDED [facility], [id number] [place] [address], [id number], tel:[phone] [facility] Care Telehealth (chief complaint) ADHD, predominantly inattentive type 2 Trang Obrien . [address] [place] [address], [id number] , . tel:[phone] Referring Provider: Camille Costello, [address] [place] [address], [address] . tel:[phone] [facility], [address], [place], [place], [id number], tel:[phone] [facility] Care No Information 1 Trang Obrien . [address] [place] [address], [id number] , . tel:[phone] Referring Provider: Camille Costello, [address] [place] [address], [id number] . tel:[phone] [facility], [address], [place], [place], [id number], tel:[phone] [facility] Care No Information 1 Trang Obrien . [address] [place] [address], [id number] , . tel:[phone] Referring Provider: Camille Costello, [address] [place] [address], [id number] . tel:[phone] [facility], [address], [place], [place], [id number], tel:[phone] [facility] Microcytic anemia 1 Trang Obrien . [address] [place] [address], [id number] , . tel:[phone] PREVENTATIVE- NEW: 40-64 [facility], [address], [place], [id number], tel:[phone] [facility] Complete Care ADD/ADHD initial visit (chief complaint)p reventive exam (chief complaint) ADHD, predominantly inattentive typeEstablishing care with new doctor, encounter forMeasles, mumps, rubella (MMR) vaccination status unknownEncntr screen mammogram for malignant neoplasm of breast 1 Trang Serranozabeth . [address] [facility], [address], [id number] , [place]. tel:[phone] Referring Provider: Camille Costello, [address] [facility] [address], [place], [address] . tel:[phone] Family History Family Member Type Diagnosis Age [...] er Payers Payer name Insurance type Covered alliance party ID Authorebonya tishayne(s) 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 [id number] [employer] CI [id number] [employer] CI [id number] [employer] CI [id number] Social History Type Description Quantity Date Captured [...] Order: Radiology Order SC REENING MAMMOGRAM (CAD) ([id number]), Sent on: Sent Future Order: Radiology Order SC REENING MAMMOGRAM (CAD) Bilateral breast ([id number]), Body Site: breast, Sent on: Sent History [...]
--- OUTSIDE RECORDS SUMMARY | 2024-07-24 09:44 | XMS_ITS | Encounter Summary ---
Author Organization [facility] Address [address] [place] [address] Care Team Providers Care Supervisor Remelt Name Role Phone Roxanna Acosta MD Primary Care Provider Encounter Details Date Type Department Care Team (Latest Contact Info) Description 11/08/2005 Inpatient Historical [facility] OB PREADMIT Kelechi Dixno MD NO ADDRESS ON FILE Second-Degree Perineal Laceration, with Delivery (Primary Dx) Social History Tobacco Use Types Packs/Day Years Used Date Smoking Tobacco: Never Assessed Sex and Gender Information Value Date Recorded Sex Assigned at Not on file Gender Identity Not on file Sexual Orientation Not on file documented as of this encounter Plan of Treatment Upcoming Encounters Date Type Department Care Team (Late st Contact Info) Description 08/23/2024 11:15 AM HIP HOP ARTIST Office Visit [facility] Oncology and Hematology - Farzad 2227 [facility] 200 [place] [address] Michele Smith MD [address] [facility] [address] [place] [address] documented as of this encounter Visit Diagnoses Diagnosis Second-degree perineal laceration, with delivery- Primary documented in this encounter Care Teams Supervisor Remelt Relationship Specialty Start Date End Date Roxanna Acosta MD PCP - General Family Practice 02/19/12 documented as of this encounter
--- OUTSIDE RECORDS SUMMARY | 2024-07-24 09:44 | XMS_ITS | Encounter Summary ---
Author Organization [facility] Address [address] [place] [address] Care Team Providers Care Social Worker Clinical Name Role Phone Barak Greenberg MD Primary Care Provider [phone] Encounter Details Date Type Department Care Team (Late st Contact Info) Description 04/20/2007 Orders Only [facility] Primary Care - [address] [place] [address] Barak Greenberg MD [address] [facility] [address] [place] [address] Social History Tobacco Use Types Packs/Day Years Used Date Smoking Tobacco: Never Assessed Sex and Gender Information Value Date Recorded Sex Assigned at Not on file Gender Identity Not on file Sexual Orientation Not on file documented as of this encounter Progress Notes * Barak Greenberg MD - 12/18/2007 5:46 PM CDT TIME:09:23 am PATIENT`S HOME PHONE: PATIENT`S WORK PHONE: PATIENT`S INSURANCE: [facility] [employer] [facility] WHO TOOK THE CALL: Sayda Sauer M GENERAL INFORMATION PATIENT STATUS: Established Patient. LAST VISIT: 11/2006 PCP: keon. ALTERNATIVE PHONE NUMBER: [phone] WHO CALLED: CURRENT ALLERGY LIST: [facility] PHARMACY NUMBER: will have when we call back PROBLEMS: POISON CORI: on legs and face--started about 4 days ago--getting worse on face- lots of itching- *would like meds please--on legs almost look like bug bites- but on face raised rash and hot to touch-very itchi--SHE IS 11 WEEKS --- SECTION 1: DOCTOR`S RESPONSE: levi 04/20/07 at 10:27 am claritin otc okay, can use medrol an triamcinolone cream .1% bid 60grams if OB says it is OK. 04-20-07 10:30am spoke w/ pt she will call back if OB gives the OK for the med--pls get pharm #...sylwia 04-20-07 5:42p lm for pt to call the office...sylwia FINAL ACTION: salty 04/21/07 at 08:31 am Spoke with patient 04/21/07 at 08:31 am. will try benadryl per ob doctor........valente Electronically Signed by: Valente Calle on Saturday, April 21, 2007 documented in this encounter Plan of Treatment Upcoming Encounters Date Type Department Care Team (Late st Contact Info) Description 08/23/2024 11:15 AM RIM ROLLER SETTER Office Visit [facility] Oncology and Hematology - [place] [address] [facility] [address] [place] [address] Michele Smith MD [address] [facility] [address] [place] [address] documented as of this encounter Visit Diagnoses Not on filedocumented in this encounter Care Teams Social Worker Clinical Relationship Specialty Start Date End Date Barak Greenberg MD [address] [facility] [address] [place] [address] PCP - General 02/17/04 01/14/12 documented as of this encounter
--- OUTSIDE RECORDS SUMMARY | 2024-07-24 09:44 | XMS_ITS | Encounter Summary ---
Author Organization [facility] Address [address] [place] [address] Care Team Providers Care Helper Animal Laboratory Name Role Phone Roxanna Acosta MD Primary Care Provider Encounter Details Date Type Department Care Team (Late Contact Info) Description 11/03/2006 Outpatient Historical [facility] Primary Care - [address] [place] [address] Barak Greenberg MD [address] [facility] [address] [place] [address] Social History Tobacco Use Types Packs/Day Years Used Date Smoking Tobacco: Never Assessed Sex and Gender Information Value Date Recorded Sex Assigned at Not on file Gender Identity Not on file Sexual Orientation Not on file documented as of this encounter Last Filed Vital Signs Vital Sign Reading Time Taken Comments Blood Pressure 114/70 11/03/2006 1:30 PM CDT Pulse - - Temperature 36.6 ??C (97.9 ??F) 11/03/2006 1:30 PM CD T Respiratory Rate - - Oxygen Saturation - - Inhaled Oxygen Concentration - - Weight 59.9 kg (132 lb) 11/03/2006 1:30 PM CDT Height - - Body Mass Index - - documented in this encounter Plan of Treatment Upcoming Encounters Date Type Department Care Team (Late st Contact Info) Description 08/23/2024 11:15 AM LOAF COUNTER Office Visit [facility] Oncology and Hematology - [place] [address] [phone] Michele Smith MD [facility] [facility] [address] [place] [address] documented as of this encounter Visit Diagnoses Not on filedocumented in this encounter Care Teams Helper Animal Laboratory Relationship Specialty Start Date End Date Roxanna Acosta MD PCP - General Family Practice 02/19/12 documented as of this encounter
== END 2024-07-19 10:02 | disposition home or self-care (01) ==
PROVIDERS: Anesthesiology; PCP Family Medicine; Visit Provider Obstetrics & Gynecology
PROC: 0U5B8ZZ Destruction of Endometrium, Via Natural or Artificial Opening Endoscopic (ICD-10-PCS; CPT 58563; principal; 2024-07-19 09:00)
DX: R93.89 Abnormal findings on diagnostic imaging of other specified body structures (principal); D50.9 Iron deficiency anemia, unspecified; K58.9 Irritable bowel syndrome, unspecified; Z79.1 Long term (current) use of non-steroidal anti-inflammatories (NSAID); Z98.890 Other specified postprocedural states
CPT/HCPCS: 58558; 88305; A9270; J1100; J2003; J2250; J2405; J2704; J3010; J7030; J7120

== ENCOUNTER 2024-08-23 11:50 | Outpatient (CLI) | payer OTHER, SELFPAY ==
[2024-08-23 12:11] LABS: Hematocrit 29.3 % (37.0-47.0); Mean Corpuscular HGB Conc 30.7 g/dl (32-36); Mean Corpuscular Hemoglobin 27.4 pg (26-34); Mean Corpuscular Volume 89.3 fl (80-100); Mean Platelet Volume 10.8 fl (7.4-10.4); Platelet Count Result 238 k/mm3 (150-375); Red Blood Count 3.28 M/mm3 (4.2-5.4); Red Cell Distribution Width 13.9 % (11.5-14.5); White Blood Count 4.6 K/mm3 (4.5-10.0)
[2024-08-23 12:42] LABS: Iron 22 ug/dL (37-170)
[2024-08-23 12:51] LABS: Percent Iron Saturation 5 % (20-50)
[2024-08-23 13:17] LABS: Ferritin 4.98 ng/mL (6.24-137)
--- OUTSIDE RECORDS SUMMARY | 2024-08-26 13:04 | XMS_ITS | Clinical Summary ---
Author Organization [facility] Address [address] [facility] [address] [place] [address] Care Team Providers Care Household Coordinator Name Role Phone Tracey Patel MD Primary Care Provider [phone] Source Comments [facility],non-owned Affiliates and Associated Physician Practices is amultiple site organization consisting of ambulatory clinics and hospital sitesin [place], [place], [place] and [place]. This disclosure is being madepursuant to the Care Everywhere program and may not contain all information available regarding this patient. Last updated 18.[employer] Allergies No known active allergies Medications * [...] DIABETES 06/17/2020 06/17/2017 LIPID TESTING 06/17/2022 06/17/2017 PAP with HPV 10/08/2023 10/07/2018 (Done Outside Per Report), 07/09/2017 COVID-19 VACCINE ( - 2023-2 5 season) 2024 INFLUENZA VACCINE (#1) 2024 05/19/2020 DEPRESSION SCREENING 08/04/2024 ZOSTER VACCINE (1 of 2) 2030 HIB VACCINE Aged Out No longer eligi ble based on patient's age to complete this topic HPV VACCINE Aged Out No longer eligi ble based on patient's age to complete this topic MENINGOCOCCAL (Group B) VACCINE Aged Out No longer eligible based on patient's age to complete this topic MENINGOCOCCAL VACCINE Aged Out No nolan logan eligible based on patient's age to complete this topic PNEUMOCOCCAL VACCINE Aged Out No long er eligible based on patient's age to complete this topic Procedures Procedure Name Priority Date/Time Associated Diagnosis Comments MAMMO BILAT DIAGNOSTIC Routine 07/17/2017 10:10 AM MD SENIOR RESEARCH SCIENTIST Left breast lump PAP IG LB +HPV APTIMA REFLEX 16,18/45 Routine 07/09/2017 3:07 PM MD SENIOR RESEARCH SCIENTIST Well woman exam with routine gynecological exam Screening for HPV (human papillomavirus) COMPREHENSIVE METABOLIC PANEL Routine 06/17/2017 10:22 AM MD SENIOR RESEARCH SCIENTIST Annual physical exam LIPID PROFILE W TCHOL/HDL Routine 06/17/2017 10:22 AM MD SENIOR RESEARCH SCIENTIST Annual physical exam from Last 3 Months or Most Recently Relevant to Health Maintenance Results * MAMMO DIAG DIRECT DIGITAL IMAGE BILA G0202 (07/17/2017 10:10 AM MD SENIOR RESEARCH SCIENTIST) Anatomical Region Laterality Modality Bilateral Mammography 07/17/2017 11:1 7 AM MD SENIOR RESEARCH SCIENTIST Narrative 07/17/2017 11:24 AM MD SENIOR RESEARCH SCIENTIST DIGITAL BILATERAL DIAGNOSTIC MAMMOGRAMS WITH CAD CORRELATION [...] if suspicious findings are present clinically. An [employer] Certified Facility. [facility] Breast Centers utilize [employer] as a reminder system to notify patients of their next recommended mammogram. Edited by Jennifer Stockton on 07/17/2017 11:23 AM Joyce Saldivar MD MAMMO ORDERABLES * (ABNORMAL) PAP IG LB +HPV APTIMA REFLEX 16,18/45 (07/09/2017 3:07 PM MD SENIOR RESEARCH SCIENTIST) Diagnosis (A) [facility] ACCOUNT BILL Comment: EPITHELIAL [...] UTERINE CERVIX / Unknown 07/09/2017 3:07 PM MD SENIOR RESEARCH SCIENTIST 07/09/2017 Narrative [facility] ACCOUNT BILL - 07/15/2017 5:10 PM MD SENIOR RESEARCH SCIENTIST Source.............Cervix LMP / Prev Treat...[id number] No. of containers..01 ThinPrep Vial Resulting Agency Comment [facility] ??Jason GONZALEZ [phone] Joyce Saldivar MD LAB - PATHOLOGY/CYTO LOGY ORDERABLES Performing Organization Address City/[facility]/ZIP Co de Phone Number [facility] ACCOUNT BILL [address] [place] [address] * LIPID PROFILE W TCHOL/HDL (06/17/2017 10:22 AM MD SENIOR RESEARCH SCIENTIST) Cholesterol 185 <200 mg/dL [facility] ACCOUNT BILL [...] BLOOD SPECIMEN / Unknown 06/17/2017 10:22 AM MD SENIOR RESEARCH SCIENTIST 06/17/2017 Narrative Resulting Agency Comment [facility] [place] [address] ??[place] [phone] Tracey Patel MD LAB - CHEMISTRY LEXX RAMIREZ Performing Organization Address City/[facility] Co de Phone Number [facility] ACCOUNT BILL [address] [place] [address] * (ABNORMAL) COMPREHENSIVE METABOLIC PANEL (06/17/2017 10:22 AM MD SENIOR RESEARCH SCIENTIST) Glucose 79 74 - 106 mg/dL [facility] [...] BLOOD SPECIMEN / Unknown 06/17/2017 10:22 AM MD SENIOR RESEARCH SCIENTIST 06/17/2017 Narrative Resulting Agency Comment [address] ??[facility] [phone] Tracey Patel MD LAB - CHEMISTRY LEXX RAMIREZ [facility] Organization Address City/State/ZIP Co de Phone Number [facility] ACCOUNT BILL [address] [place] [address] from Last 3 Months or Most Recently Relevant to Health Maintenance Care Teams Household Coordinator Relationship Specialty Start Date End Date Tracey Patel MD PCP - General Family Medicine 06/13/17
--- OUTSIDE RECORDS SUMMARY | 2024-08-26 13:04 | XMS_ITS | Patient Health Summary ---
Author Organization [facility] Address [address] [place] [address] Care Team Providers Care Abrasives Sales Representative Name Role Phone Tracey Patel MD Primary Care Provider [phone] Note from [facility],non-owned Affiliates and Associated Physician Practices is amultiple site organization consisting of ambulatory clinics and hospital sitesin [place], [place], [place] and [place]. This disclosure is being madepursuant to the Care Everywhere program and may not contain all information available regarding this patient. Last updated 18.[facility] Allergies No known active allergies Medications * [...] BILL - 02/05/2019 1:06 PM CDT Test(s) [id number] Green Cullen; [id number]-L030-UkH Kidney Cullen; [id number]-TbS Pumpkin were developed and had performance characteristics determined by [employer]. These tests have not been cleared or approved by the U.S. Food and Drug Administration. The FDA has determined that such clearance or approval is not necessary. These tests are used for clinical purposes. These should not be regarded as investigational or for research. Resulting Agency Comment Lab Testing performed at: [facility] [address] ??[facility] [phone] Tracey Patel MD LAB - SEROLOGY ORDER CARLOS ENRIQUE [facility] INSURANCE BILL [address] [place] [address] * US BREAST LEFT LTD (07/17/2017 10:29 AM [employer]OL[employer] HEAD FORMER) Anatomical Region Laterality Modality Breast Left Ultrasound 07/17/2017 10:5 2 AM [employer] FORMER Narrative 07/17/2017 10:54 AM GOL[employer]UB HEAD FORMER Left breast ultrasound Indication for examination: Palpable [...] DIGITAL IMAGE BILA G0202 (07/17/2017 10:10 AM GOL[employer] FORMER) Anatomical Region Laterality Modality Bilateral Mammography 07/17/2017 11:1 7 AM [employer] FORMER Narrative 07/17/2017 11:24 AM [employer] FORMER DIGITAL BILATERAL DIAGNOSTIC MAMMOGRAMS WITH CAD CORRELATION [...] if suspicious findings are present clinically. An [employer] Certified Facility. [facility] Centers utilize [employer] as a reminder system to notify patients of their next recommended mammogram. Edited by Jennifer Stockton on 07/17/2017 11:23 AM Joyce Saldivar MD MAMMO ORDERABLES * (ABNORMAL) PAP IG LB +HPV APTIMA REFLEX 16,18/45 (07/09/2017 3:07 PM [employer]OL[employer] FORMER) Diagnosis (A) [facility] ACCOUNT BILL Comment: EPITHELIAL [...] UTERINE CERVIX / Unknown 07/09/2017 3:07 PM [employer] FORMER 07/09/2017 Narrative [facility] ACCOUNT BILL - 07/15/2017 5:10 PM G[employer] HEAD FORMER Source.............Cervix LMP / Prev Treat...[id number] No. of containers..01 ThinPrep Vial Resulting Agency Comment [facility] [place] ??Jason GONZALEZ [phone] Joyce Saldivar MD LAB - PATHOLOGY/CYTO LOGY ORDERABLES [facility] [place]OUNT [place] [address] [place] [address] * US PELVIS WITH TRANSVAG NON OB (07/01/2017 10:57 AM [employer] FORMER) Anatomical Region Laterality Modality Pelvis Ultrasound 07/01/2017 11:0 6 AM [employer] FORMER Impressions 07/01/2017 11:12 AM [employer] FORMER RIGHT FOLLICLE CYSTS, OTHERWISE UNREMARKABLE. Edited by Jennifer Stockton on 07/01/2017 11:12 AM Narrative 07/01/2017 11:12 AM [employer] FORMER ULTRASOUND PELVIS TRANSABDOMINAL ULTRASOUND PELVIS TRANSVAGINAL ULTRASOUND [...] LIPID PROFILE W TCHOL/HDL (06/17/2017 10:22 AM [employer] FORMER) Cholesterol 185 <200 mg/dL [facility] ACCOUNT BILL Triglycerides 39 <150 mg/dL [facility] ACCOUNT BILL HDL Cholesterol 83 >40 mg/dL [facility] ACCOUNT BILL VLDL Calculated 8 <=30 mg/dL [facility] ACCOUNT BILL LDL Calculated 94 <130 mg/dL [facility] ACCOUNT BILL Comment:LDL/HDL RATIO BLOOD ([facility]) 1.1 <5.0 Cholesterol/HDL Ratio 2.2 <4.5 [facility] ACCOUNT BILL Comment:FASTING Blood BLOOD SPECIMEN / Unknown 06/17/2017 10:22 AM [employer] FORMER 06/17/2017 Narrative Resulting Agency Comment [facility] [address] ??[facility] [phone] Tracey Patel MD LAB - CHEMISTRY LEXX RAMIREZ [facility] ACCOUNT BILL [address] [place] [address] * (ABNORMAL) VITAMIN D 25-HYDROXY (06/17/2017 10:22 AM [employer] FORMER) Pathologist [facility] Vitamin D, 25 Hydroxy 22.79(L) 30 - 100 ng/mL [facility] ACCOUNT BILL Comment: Vitamin D Status: ?Deficiency ? <20 ? ng/mL ?Insufficiency ?? 20-30 ??ng/mL ?Sufficiency ? 30-100 ng/mL ?Toxicity ? >100 ?ng/mL FASTING Blood BLOOD SPECIMEN / Unknown 06/17/2017 10:22 AM [employer] FORMER 06/17/2017 Narrative Resulting Agency Comment [facility] [address] [place] [address] ??[facility] [phone] Tracey Patel MD LAB - CHEMISTRY LEXX RAMIREZ [facility] ACCOUNT BILL [address] [place] [address] * (ABNORMAL) CBC W AUTO DIFFERENTIAL (06/17/2017 10:22 AM [employer] FORMER) WBC 4.1(L) 4.4 - 10.7 x10E9/L [facility] [...] BLOOD SPECIMEN / Unknown 06/17/2017 10:22 AM [employer]MER 06/17/2017 Narrative Resulting Agency Comment [facility] [address] ??[place] [phone] Tracey Patel MD LAB - HEMATOLOGY ORD ERABLES [facility] ACCOUNT BILL [address] [place] [address] * (ABNORMAL) COMPREHENSIVE METABOLIC PANEL (06/17/2017 10:22 AM [employer] FORMER) Glucose 79 74 - 106 mg/dL [facility] [...] BLOOD SPECIMEN / Unknown 06/17/2017 10:22 AM [employer] FORMER 06/17/2017 Narrative Resulting Agency Comment [facility] [address] ??[place] [phone] Tracey Patel MD LAB - CHEMISTRY ORDE RABLES Performing Organization Address City/[facility]/ZIP Co de Phone Number [facility] ACCOUNT BILL [address] [place] [address] * TSH (06/17/2017 10:22 AM [employer] FORMER) TSH 2.85 0.358 - 3.740 uIU/mL [facility] ACCOUNT BILL Comment:FASTING Blood BLOOD SPECIMEN / Unknown 06/17/2017 10:22 AM [employer] FORMER 06/17/2017 Narrative Resulting Agency Comment [facility] [address] ??[facility] [phone] Tracey Patel MD LAB - CHEMISTRY LEXX RAMIREZ Performing Organization Address [facility] Co de Phone Number [facility] ACCOUNT BILL [address] [place] [address] * RHEUMATOID FACTOR BLOOD QUANTITATIVE (06/17/2017 10:20 AM [employer] FORMER) Rheumatoid Factor <10 <15 IU/mL [facility] ACCOUNT BILL Comment:FASTING Blood BLOOD SPECIMEN / Unknown 06/17/2017 10:20 AM [employer] FORMER 06/17/2017 Narrative Resulting Agency Comment [address] ??[facility] [phone] Tracey Patel MD LAB - CHEMISTRY LEXX RAMIREZ Performing Organization Address [facility] Co de Phone Number [facility] ACCOUNT BILL [address] [place] [address] * C-REACTIVE PROTEIN (06/17/2017 10:20 AM [employer]) C-Reactive Protein <0.29 <0.30 mg/dL [facility] ACCOUNT BILL Comment:FASTING Blood BLOOD SPECIMEN / Unknown 06/17/2017 10:20 AM [employer]MER 06/17/2017 Narrative Resulting Agency Comment [facility] [address] ??[facility] [phone] Tracey Patel MD LAB - CHEMISTRY LEXX RAMIREZ [facility] ACCOUNT BILL [address] [place] [address] * GEO BLOOD SCREEN W/REFLEX TITER (06/17/2017 10:20 AM [employer]) GEO Negative Negative [facility] ACCOUNT BILL Comment:FASTING Blood BLOOD SPECIMEN / Unknown 06/17/2017 10:20 AM [employer] FORMER 06/17/2017 Narrative Resulting Agency Comment [facility] [address] [place] [address] ??[facility] [phone] Tracey Patel MD LAB - CHEMISTRY LEXX RAMIREZ [facility] ACCOUNT BILL [address] [place] [address] * URINALYSIS - POINT OF CARE (06/17/2017) Clarity UA POCT clear Color UA POCT yellow Leukocyte UA negative Negative Nitrite UA POCT negative Negative Urobilinogen UA 0.2 0.1 - 1.0 Protein UA POCT negative Negative pH UA 6.0 5.0 - 8.0 pH units Blood UA negative Negative Specific [place] UA POCT 1.010 1.002 - 1.030 Ketone UA negative Negative Bilirubin UA POCT negative Negative Glucose UA negative Negative Urine URINE / Unknown 06/17/2017 Tracey Patel MD LAB - POINT OF CARE ORDERABLES Care Teams Abrasives Sales Representative Relationship Specialty Start Date End Date Tracey Patel MD PCP - General Family Medicine 06/13/17
--- OUTSIDE RECORDS SUMMARY | 2024-08-26 13:04 | XMS_ITS | Encounter Summary ---
Author Organization [facility] Address [address] [place] [address] Care Team Providers Care Family Law Paralegal Name Role Phone Roxanna Acosta MD Primary Care Provider Encounter Details Date Type Department Care Team (Latest Contact Info) Description 01/05/2009 Outpatient Historical [facility], [address] Enrique Mckinney MD [address] [place] [phone] Routine Gynecological Examination Social History Tobacco Use Types Packs/Day Years Used Date Smoking Tobacco: Never Alcohol Use Standard Drinks/Week Comments No 0 (1 standard drink = 0.6 oz pur e alcohol) Comments No Sex and Gender Information Value Date Recorded Sex Assigned at Not on file 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 Oncology and Hematology - [place] [address] [facility] [address] [place] [address] Michele Smith MD [address] [facility] [address] [place] [address] documented as of this encounter Visit Diagnoses Diagnosis Routine gynecological examination documented in this encounter Care Teams Family Law Paralegal Relationship Specialty Start Date End Date Roxanna Acosta MD PCP - General Family Practice 02/19/12 documented as of this encounter
--- OUTSIDE RECORDS SUMMARY | 2024-08-26 13:04 | XMS_ITS | Encounter Summary ---
Author Organization [facility] Address [address] [place] [address] Care Team Providers Care Head Waiter/Waitress Banquet Name Role Phone Roxanna Acosta MD Primary Care Provider Encounter Details Date Type Department Care Team (Late Contact Info) Description 09/11/2007 Outpatient Historical [facility] EDGE WORKER - [address] [place] [address] Enrique Mckinney MD [address] [facility] [address] [place] [phone] Social History Tobacco Use Types Packs/Day Years Used Date Smoking Tobacco: Never Assessed Comments Unknown Sex and Gender Information Value Date Recorded Sex Assigned at Not on file Legal Sex Female 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 Gender Identity Not on file Sexual Orientation Not on file documented as of this encounter Plan of Treatment Upcoming Encounters Date Type Department Care Team (Late st Contact Info) Description 10/27/2024 10:00 AM CDT Office Visit [facility] Oncology and Hematology - [place] [address] [facility] [address] [place] [address] Michele Smith MD [address] [facility] [address] [place] [address] documented as of this encounter Visit Diagnoses Not on filedocumented in this encounter Care Teams Head Waiter/Waitress Banquet Relationship Specialty Start Date End Date Roxanna Acosta MD PCP - General Family Practice 02/19/12 documented as of this encounter
--- OUTSIDE RECORDS SUMMARY | 2024-08-26 13:04 | XMS_ITS | Clinical Summary ---
Author Organization [facility] Address [address] [place] [address] Phone Care Team Providers Care Nursing Service Administrator Name Role Phone Roxanna Acosta MD Primary Care Provider Allergies Active Allergy Reactions Criticality Noted Date Comments Benadryl Decongestant Other (See Comments) 01/03 Feel bad physically and mentally Medications ibuprofen (MOTRIN) 600 mg tablet Take 1 Tablet (600 mg) by mouth every 6 hours as needed for Pain, Mild. 20 Tablet 09/23/2017 Active amphetamine-dex troamphetamine (ADDERALL XR) 20 mg Extended Release 24 [...] Encounters Date Type Department Care Team Description 08/24/2024 4:30 PM RESTORATIVE REHAB AIDE Telephone Check Up [facility] Oncology and Hematology [facility] [address] [place] [address] Michele Smith MD 08/24/2024 Orders Only [facility] Oncology and Hematology [facility] [address] [place] [address] Michele Smith MD 08/17/2024 External Device Data STL ABSTRACTION Provider, Abstract from Last 3 Months Immunizations Immunization Administration Dates Next Due INFLUENZA VACCINE QUADRIVALENT [...] Answer Date Recorded Social/Environmental Concerns No concerns Comments No Sex and Gender Information Value Date Recorded Sex Assigned at Not on file Legal Sex Female 4:02 AM RESTORATIVE REHAB AIDE Gender Identity Not on file Sexual Orientation Not on file Occupation Industry Job Start Date Job End Date Not on file Not on file Not on file Not on file Last Filed Vital Signs [...] Description 10/27/2024 10:00 AM CDT Office Visit [facility] Oncology and Hematology [facility] [address] [facility] [address] [place] [address] Michele Smith MD [address] [facility] [address] [place] [address] Health Maintenance Due Date Last Done Comments Pre-Diabetes and Diabetes Screening 1980 DTAP/TDAP/TD VACCINES (1 - Tdap) 1999 HEPATITIS B VACCINES (1 of 3 - 19+ 3-dose series) 1999 BREAST CANCER SCREENING 2020 07/17/2017 INFLUENZA VACCINE (#1) 2024 06/17/2023, 2019 Preventative Visit- Commercial 08/04/2024 03/04/2022, 03/04/2022, 11/10/2020, Additional history exists CERVICAL CANCER SCREENING 03/04/20252021, 11/10/2020, 09/29/2019, Additional history exists HPV VACCINES Aged Out No longer eligi ble based on patient's age to complete this topic Procedures Procedure Name Priority Date/Time Associated Diagnosis Comments IRON LEVEL Routine 08/23/2024 2:37 PM RESTORATIVE REHAB AIDE CERV/VAG CYTO AGE BASED SCREEN PAP Routine 11/10/2020 1:42 PM CDT Well woman exam with routine gynecological exam from Last 3 Months or Most Recently Relevant to Health Maintenance Results * IRON LEVEL (08/23/2024 2:37 PM RESTORATIVE REHAB AIDE) Blood us Michele Smith MD CHEMISTRY ORDERABLES Final Resu lt * CERV/VAG CYTO AGE BASED SCREEN PAP (11/10/2020 1:42 PM CDT) COMMENT (PAP): SEE COMMENT 2:34 PM CDT [facility] Comment: This order for age-based cervical cancer and STI screening follows ACOG guidelines(PB 168, 140, EWU315). See individual assays for performing site location. [...] 2:34 PM CDT [facility] INSTALLATION AND REPAIR TECHNICIAN: SEE COMMENT 2020 2:34 PM CDT [facility] Comment: ASHLEY, CT(ASCP) CT Screening location: On license of [facility] Administration [place] [address] REVIEW INSTALLATION AND REPAIR TECHNICIAN: SEE COMMENT 11/16/2020 2:34 PM CDT [facility] Comment: KMS, CT(ASCP) CT Screening location: [place] [address] [address] [place] [address] EXPLANATORY NOTE SEE COMMENT 021 2:34 PM CDT [facility] Comment: EXPLANATORY NOTE: The Pap is a [...] Detected Not Detected 11/16/2020 2:34 PM CDT [facility] Comment: Methodology: Real Estate Lawyer-Mediated Amplification This assay detects E6/E7 viral messenger RNA (mRNA) from 14 high-risk HPV types (16,18,31,33,35,39,45,51,52,56,58,59,66,68). The analytical performance characteristics of this assay have been determined by [employer]. The modifications have not been cleared or approved by the FDA. This assay has been validated pursuant to the CLIA regulations and is used for clinical purposes. For additional information, please refer to http://education.[employer]/faq/TUT759r8 (This link if provided for information/ educational purposes only.) Genital SWAB OF ENDOCERVIX / Unknown Collection / Unknown 11/10/2020 1:42 PM CDT 11/10/2020 9:41 PM CDT Narrative [facility] - 11/16/2020 2:34 PM CDT Performing Organization Information: ?Site ID: [place] ?[facility] ?Address: [address] [place] [address] ?Director: Robby Steven D.O., MPH ?Site ID: ?Name: [facility] ?Address: [address] [address] [address] ?Director: Parth Herrera us Enrique Mckinney MD PATHOLOGY/CYTOLOGY ORDERABLES Final Result [facility] [phone] from Last 3 Months or Most Recently Relevant to Health Maintenance Insurance Advance Directives For more information, please contact: [phone] * Full Code (Latest Code Status on [...] 11:26 PM 08/16/2009 7:12 AM Care Teams Nursing Service Administrator Relationship Specialty Start Date End Date Roxanna Acosta MD PCP - General Family Practice 02/19/12
--- OUTSIDE RECORDS SUMMARY | 2024-08-26 13:04 | XMS_ITS | Encounter Summary ---
Author Organization [facility] Address [address] [place] [address] Care Team Providers Care Buffet Waiter/Waitress Name Role Phone Roxanna Acosta MD Primary Care Provider [phone] Encounter Details Date Type Department Care Team (Latest Contact Info) Description 08/17/2007 Outpatient Historical [facility] Naveed Means MD [address] [place] [address] Other Specified Complication, Antepartum Social History Tobacco Use Types Packs/Day Years Used Date Smoking Tobacco: Never Assessed Comments Unknown Sex and Gender Information Value Date Recorded Sex Assigned at Not on file 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 Gender Identity Not on file Sexual Orientation Not on file documented as of this encounter Plan of Treatment Upcoming Encounters Date Type Department Care Team (Late st Contact Info) Description 10/27/2024 10:00 AM CDT Office Visit [facility] Oncology and Hematology - [place] [address] [facility] [address] [place] [address] Michele Smith MD [address] [facility] [address] [place] [address] documented as of this encounter Visit Diagnoses Diagnosis Other specified complication, antepartum(646.83) Other specified complication, antepartum documented in this encounter Care Teams Buffet Waiter/Waitress Relationship Specialty Start Date End Date Roxanna Acosta MD PCP - General Family Practice 02/19/12 documented as of this encounter
--- OUTSIDE RECORDS SUMMARY | 2024-08-26 13:04 | XMS_ITS | Encounter Summary ---
Author Organization [facility] Address [address] [place] [address] Care Team Providers Care Bicycle Repair Technician Name Role Phone Roxanna Acosta MD Primary Care Provider Encounter Details Date Type Department Care Team (Late Contact Info) Description 08/13/2007 Outpatient Historical [facility] - Medical [address] [address] Enrique Mckinney MD [address] [address] Social History Tobacco Use Types Packs/Day Years Used Date Smoking Tobacco: Never Assessed Comments Unknown Sex and Gender Information Value Date Recorded Sex Assigned at Not on file Legal Sex Female 4:02 AM PHOTO MASK PATTERN GENERATOR Gender Identity Not on file Sexual Orientation Not on file documented as of this encounter Plan of Treatment Upcoming Encounters Date Type Department Care Team (Late st Contact Info) Description 10/27/2024 10:00 AM CDT Office Visit [facility] Oncology and Hematology - [place] [address] [facility] [address] [place] [address] Michele Smith MD [address] [facility] [address] [place] [address] documented as of this encounter Visit Diagnoses Not on filedocumented in this encounter Care Teams Bicycle Repair Technician Relationship Specialty Start Date End Date Roxanna Acosta MD PCP - General Family Practice 02/19/12 documented as of this encounter
--- OUTSIDE RECORDS SUMMARY | 2024-08-26 13:04 | XMS_ITS | Encounter Summary ---
Author Organization [facility] Address [address] [place] [address] Care Team Providers Care Associate Store Leader Name Role Phone Roxanna Acosta MD Primary Care Provider Encounter Details Date Type Department Care Team (Latest Contact Info) Description 10/05/2007 Outpatient Historical [facility] [address] Epifanio Jones MD NO ADDRESS ON FILE Supervision of Other Normal Social History Tobacco Use Types Packs/Day Years Used Date Smoking Tobacco: Never Assessed Comments Unknown Sex and Gender Information Value Date Recorded Sex Assigned at Not on file Legal Sex Female 4:02 AM MEDICATION MANAGER Gender Identity Not on file Sexual Orientation Not on file documented as of this encounter Plan of Treatment Upcoming Encounters Date Type Department Care Team (Late st Contact Info) Description 10/27/2024 10:00 AM CDT Office Visit [facility] Oncology and Hematology - [place] [address] [facility] [address] [place] [address] Michele Smith MD [address] [facility] [address] [place] [address] documented as of this encounter Procedures Procedure Name Priority Date/Time Associated Diagnosis Comments (BROTH-ENRICHED) GROUP B STREP DETECTION Routine 10/05/2007 5:22 PM MEDICATION MANAGER documented in this encounter Results * STREPTOCOCCUS GROUP B CULTURE (10/05/2007 5:22 PM MEDICATION MANAGER) PRELIMINARY REPORT Pending INTERFACE SYSTEM FINAL REPORT No Streptococcus Group B isolated. INTERFACE SYSTEM Vaginal 10/05/2007 5:22 PM MEDICATION MANAGER 10/05/2007 5:26 PM MEDICATION MANAGER us Epifanio Jones MD MICROBIOLOGY - GENERAL ORDERABL ES Final Result INTERFACE SYSTEM Refer to clinic/hospital department documented in this encounter Visit Diagnoses Diagnosis Supervision of other normal documented in this encounter Care Teams Associate Store Leader Relationship Specialty Start Date End Date Roxanna Acosta MD PCP - General Family Practice 02/19/12 documented as of this encounter
--- OUTSIDE RECORDS SUMMARY | 2024-08-26 13:04 | XMS_ITS | Encounter Summary ---
Author Organization [facility] Address [address] [place] [address] Care Team Providers Care Sisal Picker Name Role Phone Roxanna Acosta MD Primary Care Provider [phone] Encounter Details Date Type Department Care Team (Late Contact Info) Description 10/05/2007 Outpatient Historical [facility] DOCUMENTATION ENGINEER - Medical [place] [facility] [address] [facility] [address] [address] Epifanio Jones MD NO ADDRESS ON FILE Social History Tobacco Use Types Packs/Day Years Used Date Smoking Tobacco: Never Assessed Comments Unknown Sex and Gender Information Value Date Recorded Sex Assigned at Not on file Legal Sex Female 4:02 AM SPECIALTY FOOD PRODUCTS SUPERVISOR Gender Identity Not on file Sexual Orientation Not on file documented as of this encounter Plan of Treatment Upcoming Encounters Date Type Department Care Team (Late Contact Info) Description 10/27/2024 10:00 AM CDT Office Visit [facility] Oncology and Hematology - [place] [address] [facility] [address] [facility] [address] [place] [address] Michele Smith MD [address] [facility] [address] [place] [address] documented as of this encounter Visit Diagnoses Not on filedocumented in this encounter Care Teams Sisal Picker Relationship Specialty Start Date End Date Roxanna Acosta MD PCP - General Family Practice 02/19/12 documented as of this encounter
--- OUTSIDE RECORDS SUMMARY | 2024-08-26 13:04 | XMS_ITS | Referral Summary ---
Author Organization [facility] Address [address] [place] [address] Care Team Providers Care Laminator Hand Name Role Phone Tracey Patel MD Primary Care Provider [phone] Source Comments [facility],non-owned Affiliates and Associated Physician Practices is amultiple site organization consisting of ambulatory clinics and hospital sitesin [place], [place], [place] and [place]. This disclosure is being madepursuant to the Care Everywhere program and may not contain all information available regarding this patient. Last updated 18.[facility] Allergies No known active allergies Medications * [...] MAMMO BILAT DIAGNOSTIC Routine 07/17/2017 10:10 AM HYPOID GEAR TESTER Left breast lump PAP IG LB +HPV APTIMA REFLEX 16,18/45 Routine 07/09/2017 3:07 PM HYPOID GEAR TESTER Well woman exam with routine gynecological exam Screening for HPV (human papillomavirus) COMPREHENSIVE METABOLIC PANEL Routine 06/17/2017 10:22 AM HYPOID GEAR TESTER Annual physical exam LIPID PROFILE W TCHOL/HDL Routine 06/17/2017 10:22 AM HYPOID GEAR TESTER Annual physical exam from Last 3 Months or Most Recently Relevant to Health Maintenance Results * MAMMO DIAG DIRECT DIGITAL IMAGE BILA [id number] (07/17/2017 10:10 AM HYPOID GEAR TESTER) Anatomical Region Laterality Modality Bilateral Mammography 07/17/2017 11:1 7 AM HYPOID GEAR TESTER Narrative 07/17/2017 11:24 AM HYPOID GEAR TESTER DIGITAL BILATERAL DIAGNOSTIC MAMMOGRAMS WITH CAD CORRELATION [...] if suspicious findings are present clinically. An [employer] Certified Facility. [facility] utilize [employer] as a reminder system to notify patients of their next recommended mammogram. Edited by Jennifer Stockton on 07/17/2017 11:23 AM Joyce Saldivar MD MAMMO ORDERABLES * (ABNORMAL) PAP IG LB +HPV APTIMA REFLEX 16,18/45 (07/09/2017 3:07 PM HYPOID GEAR TESTER) Diagnosis (A) [facility] ACCOUNT BILL Comment: EPITHELIAL [...] UTERINE CERVIX / Unknown 07/09/2017 3:07 PM HYPOID GEAR TESTER 07/09/2017 Narrative [facility] ACCOUNT BILL - 07/15/2017 5:10 PM HYPOID GEAR TESTER Source.............Cervix LMP / Prev Treat...PRI=[id number] No. of containers..01 ThinPrep Vial Resulting Agency Comment [facility] [address] [facility] ??Jason AguiarVannesa [phone] Joyce Saldivar MD LAB - PATHOLOGY/CYTO LOGY ORDERABLES [facility] ACCOUNT BILL [address] [place] [address] * LIPID PROFILE W TCHOL/HDL (06/17/2017 10:22 AM HYPOID GEAR TESTER) Cholesterol 185 <200 mg/dL [facility] ACCOUNT BILL [...] BLOOD SPECIMEN / Unknown 06/17/2017 10:22 AM HYPOID GEAR TESTER 06/17/2017 Narrative Resulting Agency Comment [facility] Health [facility] [address] ??[place] [phone] Tracey Patel MD LAB - CHEMISTRY ORDE RABLES [facility] ACCOUNT BILL [address] [place] [address] * (ABNORMAL) COMPREHENSIVE METABOLIC PANEL (06/17/2017 10:22 AM HYPOID GEAR TESTER) Glucose 79 74 - 106 mg/dL [facility] [...] BLOOD SPECIMEN / Unknown 06/17/2017 10:22 AM HYPOID GEAR TESTER 06/17/2017 Narrative Resulting Agency Comment [facility] Health [facility] [address] ??[place] [phone] Tracey Patel MD LAB - CHEMISTRY LEXX RAMIREZ [facility] ACCOUNT BILL [address] [place] [address] from Last 3 Months or Most Recently Relevant to Health Maintenance Care Teams Laminator Hand Relationship Specialty Start Date End Date Tracey Patel MD PCP - General Family Medicine 06/13/17
--- OUTSIDE RECORDS SUMMARY | 2024-08-26 13:04 | XMS_ITS | Encounter Summary ---
Author Organization [facility] Address [address] [place] [address] Care Team Providers Care Launching Pad Mechanic Name Role Phone Roxanna Acosta MD Primary Care Provider Encounter Details Date Type Department Care Team (Late st Contact Info) Description 05/19/2012 Chart Note [facility] [address] [place] [address] Kyleigh Daivs, Physical Therapist Social History Tobacco Use Types Packs/Day Years Used Date Smoking Tobacco: Never Smokeless Tobacco: Never Alcohol Use Standard Drinks/Week Comments No 0 (1 standard drink = 0.6 oz pur e alcohol) Comments Unknown Sex and Gender Information Value Date Recorded Sex Assigned at Not on file Legal Sex Female 4:02 AM FARM SPECIALIST Gender Identity Not on file Sexual Orientation Not on file Occupation Industry Job Start Date Job End Date Not on file Not on file Not on file Not on file documented as of this [...] you for this referral. Kyleigh Davis P.T. [facility] Therapy Services [address] [place] [address]. [address] [place] [address] documented in this encounter Plan of Treatment Upcoming Encounters Date Type Department Care Team (Late st Contact Info) Description 10/27/2024 10:00 AM CDT Office Visit [facility] Oncology and Hematology - [place] [address] [facility] [address] [place] [address] Michele Smith MD [address] [facility] [address] [place] [address] documented as of this encounter Visit Diagnoses Not on filedocumented in this encounter Care Teams Launching Pad Mechanic Relationship Specialty Start Date End Date Roxanna Acosta MD PCP - General Family Practice 02/19/12 documented as of this encounter
--- OUTSIDE RECORDS SUMMARY | 2024-08-26 13:04 | XMS_ITS | Encounter Summary ---
Author Organization [facility] Address [address] [place] [address] Care Team Providers Care Paper Cutting Machine Operator Name Role Phone Roxanna Acosta MD Primary Care Provider [phone] Encounter Details Date Type Department Care Team (Late Contact Info) Description 08/13/2007 Outpatient Historical [facility] GROUP HOME COUNSELOR - Medical [address] [address] Enrique Mckinney MD [address] [address] Social History Tobacco Use Types Packs/Day Years Used Date Smoking Tobacco: Never Assessed Comments Unknown Sex and Gender Information Value Date Recorded Sex Assigned at Not on file Legal Sex Female 4:02 AM FLIGHT DIRECTOR Gender Identity Not on file Sexual Orientation Not on file documented as of this encounter Plan of Treatment Upcoming Encounters Date Type Department Care Team (Late st Contact Info) Description 10/27/2024 10:00 AM CDT Office Visit [facility] Oncology and Hematology - [place] [address] [facility] [address] [place] [address] Michele Smith MD [address] [facility] [address] [place] [address] documented as of this encounter Visit Diagnoses Not on filedocumented in this encounter Care Teams Paper Cutting Machine Operator Relationship Specialty Start Date End Date Roxanna Acosta MD PCP - General Family Practice 02/19/12 documented as of this encounter
--- OUTSIDE RECORDS SUMMARY | 2024-08-26 13:04 | XMS_ITS | Encounter Summary ---
Author Organization [facility] Address [address] [facility] [place] [address] Care Team Providers Care Orthotic Finish Grinding Technician Name Role Phone Tracey Patel MD Primary Care Provider [phone] Encounter Details Date Type Department Care Team (Late st Contact Info) Description 04/16/2018 [facility] Tracey Patel MD [address] [place] [address] Social History Tobacco Use Types Packs/Day [...] on filedocumented in this encounter Care Teams Orthotic Finish Grinding Technician Relationship Specialty Start Date End Date Tracey Patel MD PCP - General Family Medicine 06/13/17 documented as of this encounter
--- OUTSIDE RECORDS SUMMARY | 2024-08-26 13:04 | XMS_ITS | Encounter Summary ---
Author Organization [facility] Address [address] [place] [address] Care Team Providers Care Central Supply Manager Name Role Phone Roxanna Acosta MD Primary Care Provider Encounter Details Date Type Department Care Team (Late Contact Info) Description 10/25/2007 Inpatient Historical [facility] Enrique Mckinney MD [address] [address] Normal Delivery Social History Tobacco Use Types Packs/Day Years Used Date Smoking Tobacco: Never Assessed Comments Unknown Sex and Gender Information Value Date Recorded Sex Assigned at Not on file Legal Sex Female 4:02 AM LIGHTER Gender Identity Not on file Sexual Orientation Not on file documented as of this encounter Plan of Treatment Upcoming Encounters Date Type Department Care Team (Late st Contact Info) Description 10/27/2024 10:00 AM CDT Office Visit [facility] Oncology and Hematology - [place] [address] [facility] [address] [place] [address] Michele Smith MD [address] [facility] [address] [place] [address] documented as of this encounter Procedures Procedure Name Priority Date/Time Associated Diagnosis Comments URINALYSIS W/REFLEX MICROSCOPIC Stat 10/25/2007 6:26 PM CDT documented in this encounter Results * URINALYSIS (10/25/2007 6:26 PM CDT) WBC UA Invalid Result 0 - 5 [facility] CLARITY UA Invalid Result Clear [facility] PROTEIN UA Invalid Result Negative [facility] EPITHELIAL CELLS, URINE Invalid Result [facility] BILIRUBIN UA Invalid Result Negative [facility] LEUKOCYTE ESTERASE UA Invalid Result Negative [facility] RBC UA Invalid Result 0 - 4 /HPF [facility] SPECIFIC GRAVITY UA Invalid Result 1.001 - 1.035 [facility] GLUCOSE UA Invalid Result Negative [facility] BLOOD UA Invalid Result Negative [facility] TRANSITIONAL EPI Invalid Result [facility] COLOR UA Invalid Result [facility] Comment: Lab was notified by Laura 10/25/07 7:35 PM that specimen was mislabeled. ??Patient's account has been credited. NITRITE UA Invalid Result Negative [facility] UROBILINOGEN UA Invalid Result <1 [facility] BACTERIA UA Invalid Result None Seen [facility] PH UA Invalid Result 5.0 - 8.0 [facility] KETONES UA Invalid Result Negative [facility] 10/25/2007 6:26 PM CDT 10/25/2007 6:30 PM CDT us Enrique Mckinney MD URINE ORDERABLES Edited [facility] [address] [place] [address] documented in this encounter Visit Diagnoses Diagnosis Normal delivery documented in this encounter Care Teams Central Supply Manager Relationship Specialty Start Date End Date Roxanna Acosta MD PCP - General Family Practice 02/19/12 documented as of this encounter
--- OUTSIDE RECORDS SUMMARY | 2024-08-26 13:04 | XMS_ITS | Encounter Summary ---
Author Organization Address [address] [place] [address] Care Team Providers Care Vegetable Farm Manager Name Role Phone Roxanna Acosta MD Primary Care Provider Encounter Details Date Type Department Care Team (Late Contact Info) Description 09/08/2007 Outpatient Historical [facility] TAX INTERN - [address] [place] [address] Enrique Mckinney MD 1 [facility] [address] [place] [address] Social History Tobacco Use Types Packs/Day Years Used Date Smoking Tobacco: Never Assessed Comments Unknown Sex and Gender Information Value Date Recorded Sex Assigned at Not on file Legal Sex Female 4:02 AM SUPPLIER RELATIONSHIP DIRECTOR Gender Identity Not on file Sexual Orientation Not on file documented as of this encounter Plan of Treatment Upcoming Encounters Date Type Department Care Team (Late st Contact Info) Description 10/27/2024 10:00 AM CDT Office Visit [facility] Oncology and Hematology - Farzad 2227 T[address] Mancini [facility] 200 [place] [address] Michele Smith MD 2227 [facility] [address] [place] [address] documented as of this encounter Visit Diagnoses Not on filedocumented in this encounter Care Teams Vegetable Farm Manager Relationship Specialty Start Date End Date Roxanna Acosta MD PCP - General Family Practice 02/19/12 documented as of this encounter
--- OUTSIDE RECORDS SUMMARY | 2024-08-26 13:05 | XMS_ITS | Encounter Summary ---
Author Organization [facility] Address [address] [place] [address] Care Team Providers Care Amf Mechanic Name Role Phone Roxanna Acosta MD Primary Care Provider Encounter Details Date Type Department Care Team (Late Contact Info) Description 04/02/2007 Outpatient Historical [facility] RINK RAT - Medical [address] [address] Enrique Mckinney MD [address] [address] Social History Tobacco Use Types Packs/Day Years Used Date Smoking Tobacco: Never Assessed Comments Unknown Sex and Gender Information Value Date Recorded Sex Assigned at Not on file Legal Sex Female 4:02 AM TEST INSPECTION ENGINEER Gender Identity Not on file Sexual Orientation Not on file documented as of this encounter Plan of Treatment Upcoming Encounters Date Type Department Care Team (Late st Contact Info) Description 10/27/2024 10:00 AM CDT Office Visit [facility] Oncology and Hematology - Farzad [address] [place] [address] Michele Smith MD 2227 [facility] [address] [place] [address] documented as of this encounter Visit Diagnoses Not on filedocumented in this encounter Care Teams Amf Mechanic Relationship Specialty Start Date End Date Roxanna Acosta MD PCP - General Family Practice 02/19/12 documented as of this encounter
--- OUTSIDE RECORDS SUMMARY | 2024-08-26 13:05 | XMS_ITS | Encounter Summary ---
Author Organization [facility] Address [address] [place] [address] Care Team Providers Care Transportation Sales Consultant Name Role Phone Roxanna Acosta MD Primary Care Provider Encounter Details Date Type Department Care Team (Late Contact Info) Description 12/09/2005 Outpatient Historical [facility] Primary Care - [address] [place] [address] Barak Greenberg MD 0391 [facility] [address] [place], [place] [id number] Social History Tobacco Use Types Packs/Day Years Used Date Smoking Tobacco: Never Assessed Comments Unknown Sex and Gender Information Value Date Recorded Sex Assigned at Not on file Legal Sex Female 4:02 AM STRUCTURAL ARCHITECT Gender Identity Not on file Sexual Orientation [...] Description 10/27/2024 10:00 AM CDT Office Visit [facility] Oncology and Hematology - Far[place]ad 222 [facility] [address] [place] [address] Michele Smith MD 2227 [facility] [address] [place] [address] documented as of this encounter Visit Diagnoses Not on filedocumented in this encounter Care Teams Transportation Sales Consultant Relationship Specialty Start Date End Date Roxanna Acosta MD PCP - General Family Practice 02/19/12 documented as of this encounter
--- OUTSIDE RECORDS SUMMARY | 2024-08-26 13:05 | XMS_ITS | Encounter Summary ---
Author Organization [facility] Address [address] [place] [address] Care Team Providers Care Sr. Director Product Management Name Role Phone Roxanna Acosta MD Primary Care Provider Encounter Details Date Type Department Care Team (Late Contact Info) Description 03/27/2007 Outpatient Historical [facility] INTERIOR DESIGN PRINCIPAL - [address] [place] [address] Enrique Mckinney MD 1 [facility] [address] [place] [address] Social History Tobacco Use Types Packs/Day Years Used Date Smoking Tobacco: Never Assessed Comments Unknown Sex and Gender Information Value Date Recorded Sex Assigned at Not on file Legal Sex Female 4:02 AM ADMISSIONS CLERK Gender Identity Not on file Sexual Orientation Not on file documented as of this encounter Plan of Treatment Upcoming Encounters Date Type Department Care Team (Late st Contact Info) Description 10/27/2024 10:00 AM CDT Office Visit [facility] Oncology and Hematology - Farzad [address] [place] [address] Michele Smith MD 2227 [facility] [address] [place] [address] documented as of this encounter Visit Diagnoses Not on filedocumented in this encounter Care Teams Sr. Director Product Management Relationship Specialty Start Date End Date Roxanna Acosta MD PCP - General Family Practice 02/19/12 documented as of this encounter
--- OUTSIDE RECORDS SUMMARY | 2024-08-26 13:05 | XMS_ITS | Encounter Summary ---
Author Organization [facility] Address [address] [place] [address] Care Team Providers Care Assembly And Packing Supervisor Name Role Phone Roxanna Acosta MD Primary Care Provider [phone] Encounter Details Date Type Department Care Team (Late Contact Info) Description 07/15/2007 Outpatient Historical [facility] WOOL WASHER FEEDER - [address] [place] [address] Enrique Mckinney MD 1 [facility] [address] [place] [address] Social History Tobacco Use Types Packs/Day Years Used Date Smoking Tobacco: Never Assessed Comments Unknown Sex and Gender Information Value Date Recorded Sex Assigned at Not on file Legal Sex Female 4:02 AM SENIOR NATIONAL ACCOUNT MANAGER Gender Identity Not on file Sexual Orientation Not on file documented as of this encounter Plan of Treatment Upcoming Encounters Date Type Department Care Team (Late st Contact Info) Description 10/27/2024 10:00 AM CDT Office Visit [facility] Oncology and Hematology - Farzad 2[address] T[address] Manc[address] [facility] 200 [place] [address] Michele Smith MD 2227 [facility] [address] [place] [address] documented as of this encounter Visit Diagnoses Not on filedocumented in this encounter Care Teams Assembly And Packing Supervisor Relationship Specialty Start Date End Date Roxanna Acosta MD PCP - General Family Practice 02/19/12 documented as of this encounter
--- OUTSIDE RECORDS SUMMARY | 2024-08-26 13:05 | XMS_ITS | Encounter Summary ---
Author Organization [facility] Address [address] [place] [address] Care Team Providers Care Occupational Therapist'S Assistant Name Role Phone Roxanna Acosta MD Primary Care Provider [phone] Encounter Details Date Type Department Care Team (Late st Contact Info) Description 12/29/2002 Outpatient Historical [facility] Primary Care - [address] [place] [address] Otf Talavera Social History Tobacco Use Types Packs/Day Years Used Date Smoking Tobacco: Never Assessed Comments Unknown Sex and Gender Information Value Date Recorded Sex Assigned at Not on file Legal Sex Female 4:02 AM LOGISTICS LOSS PREVENTION MANAGER Gender Identity Not on file Sexual Orientation Not on file documented as of this encounter Plan of Treatment Upcoming Encounters Date Type Department Care Team (Late st Contact Info) Description 10/27/2024 10:00 AM CDT Office Visit [facility] Oncology and Hematology - Farzad 2227 [facility] 200 [place] [address] Michele Smith MD 2227 [facility] [address] [place] [address] documented as of this encounter Visit Diagnoses Not on filedocumented in this encounter Care Teams Occupational Therapist'S Assistant Relationship Specialty Start Date End Date Roxanna Acosta MD PCP - General Family Practice 02/19/12 documented as of this encounter
--- OUTSIDE RECORDS SUMMARY | 2024-08-26 13:05 | XMS_ITS | Encounter Summary ---
Author Organization [facility] Address [address] [place] [address] Care Team Providers Care Personalized Living Assistant Name Role Phone Roxanna Acosta MD Primary Care Provider Encounter Details Date Type Department Care Team (Late st Contact Info) Description 09/02/2003 Outpatient Historical [facility] Primary Care - [address] [place] [address] Otf Talavera Social History Tobacco Use Types Packs/Day Years Used Date Smoking Tobacco: Never Assessed Comments Unknown Sex and Gender Information Value Date Recorded Sex Assigned at Not on file Legal Sex Female 4:02 AM DOWEL PIN WORKER Gender Identity Not on file Sexual Orientation Not on file documented as of this encounter Plan of Treatment Upcoming Encounters Date Type Department Care Team (Late st Contact Info) Description 10/27/2024 10:00 AM CDT Office Visit [facility] Oncology and Hematology - Farzad 2227 [facility] 200 [place] [address] Michele Smith MD 2227 [facility] [address] [place] [address] documented as of this encounter Visit Diagnoses Not on filedocumented in this encounter Care Teams Personalized Living Assistant Relationship Specialty Start Date End Date Roxanna Acosta MD PCP - General Family Practice 02/19/12 documented as of this encounter
--- OUTSIDE RECORDS SUMMARY | 2024-08-26 13:05 | XMS_ITS | Encounter Summary ---
Author Organization [facility] Address [address] [place] [address] Care Team Providers Care General Teller Name Role Phone Roxanna Acosta MD Primary Care Provider Encounter Details Date Type Department Care Team (Late st Contact Info) Description 07/06/2003 Outpatient Historical [facility] Primary Care - [address] [place] [address] Otf Talavera Social History Tobacco Use Types Packs/Day Years Used Date Smoking Tobacco: Never Assessed Comments Unknown Sex and Gender Information Value Date Recorded Sex Assigned at Not on file Legal Sex Female 4:02 AM MANAGER HOUSE Gender Identity Not on file Sexual Orientation Not on file documented as of this encounter Plan of Treatment Upcoming Encounters Date Type Department Care Team (Late st Contact Info) Description 10/27/2024 10:00 AM CDT Office Visit [facility] Oncology and Hematology - Farzad 2227 [facility] 200 [place] [address] Michele Smith MD 2227 [facility] [address] [place] [address] documented as of this encounter Visit Diagnoses Not on filedocumented in this encounter Care Teams General Teller Relationship Specialty Start Date End Date Roxanna Acosta MD PCP - General Family Practice 02/19/12 documented as of this encounter
--- OUTSIDE RECORDS SUMMARY | 2024-08-26 13:05 | XMS_ITS | Encounter Summary ---
Author Organization [facility] Address 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 Gender Identity Not on file Sexual Orientation Not on file documented as of this encounter Plan of Treatment Upcoming Encounters Date Type Department Care Team (Late st Contact Info) Description 10/27/2024 10:00 AM CDT Office Visit [facility] Oncology and Hematology - Farzad [address] Manc[address] [facility] 200 [place] [address] Michele Smith MD 2227 [facility] [address] [place] [address] documented as of this encounter Visit Diagnoses Not on filedocumented in this encounter Care Teams Safety Specialist Relationship Specialty Start Date End Date Roxanna Acosta MD PCP - General Family Practice 02/19/12 documented as of this encounter
--- OUTSIDE RECORDS SUMMARY | 2024-08-26 13:05 | XMS_ITS | Encounter Summary ---
Author Organization [facility] Address [address] [place] [address] Care Team Providers Care Dental Assistant Teacher Name Role Phone Roxanna Acosta MD Primary Care Provider [phone] Encounter Details Date Type Department Care Team (Late st Contact Info) Description 09/30/[address] 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 Oncology and Hematology - Farzad 2227 [facility] 200 [place] [address] Michele Smith MD 2227 [facility] [address] [place] [address] documented as of this encounter Visit Diagnoses Not on filedocumented in this encounter Care Teams Dental Assistant Teacher Relationship Specialty Start Date End Date Roxanna Acosta MD PCP - General Family Practice 02/19/12 documented as of this encounter
--- OUTSIDE RECORDS SUMMARY | 2024-08-26 13:05 | XMS_ITS | Encounter Summary ---
Author Organization [facility] Address 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 Gender Identity Not on file Sexual Orientation Not on file documented as of this encounter Plan of Treatment Upcoming Encounters Date Type Department Care Team (Late st Contact Info) Description 10/27/2024 10:00 AM CDT Office Visit [facility] Oncology and Hematology - Farzad 2227 [facility] 200 [place] [address] Michele Smith MD 2227 [facility] [address] [place] [address] documented as of this encounter Visit Diagnoses Not on filedocumented in this encounter Care Teams Product Support Technician Relationship Specialty Start Date End Date Roxanna Acosta MD PCP - General Family Practice 02/19/12 documented as of this encounter
--- OUTSIDE RECORDS SUMMARY | 2024-08-26 13:05 | XMS_ITS | Encounter Summary ---
Author Organization [facility] Address 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 Gender Identity Not on file Sexual Orientation Not on file documented as of this encounter Plan of Treatment Upcoming Encounters Date Type Department Care Team (Late st Contact Info) Description 10/27/2024 10:00 AM CDT Office Visit [facility] Oncology and Hematology - Farzad 2227 Tashia Mancini [facility] 200 [place] [address] Michele Smith MD 2227 [facility] [address] [place] [address] documented as of this encounter Visit Diagnoses Diagnosis Second-degree perineal laceration, with delivery- Primary documented in this encounter Care Teams Geothermal Electrical Engineer Relationship Specialty Start Date End Date Roxanna Acosta MD PCP - General Family Practice 02/19/12 documented as of this encounter
--- OUTSIDE RECORDS SUMMARY | 2024-08-26 13:05 | XMS_ITS | Encounter Summary ---
Author Organization [facility] Address [address] [place] [address] Care Team Providers Care Front End Application Developer Name Role Phone Roxanna Acosta MD Primary Care Provider Encounter Details Date Type Department Care Team (Latest Contact Info) Description 07/16/2007 Outpatient Historical [facility] Enrique Mckinney MD [address] 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 Gender Identity Not on file Sexual Orientation Not on file documented as of this encounter Plan of Treatment Upcoming Encounters Date Type Department Care Team (Late st Contact Info) Description 10/27/2024 10:00 AM CDT Office Visit [facility] Oncology and Hematology - Farzad [address] [facility] [address] [place] [address] Michele Smith MD 2227 [facility] [address] [place] [address] documented as of this encounter Visit Diagnoses Diagnosis Other specified complication, antepartum(646.83) Other specified complication, antepartum documented in this encounter Care Teams Front End Application Developer Relationship Specialty Start Date End Date Roxanna Acosta MD PCP - General Family Practice 02/19/12 documented as of this encounter
--- OUTSIDE RECORDS SUMMARY | 2024-08-26 13:05 | XMS_ITS | Encounter Summary ---
Author Organization [facility] Address [address] [place] [address] Care Team Providers Care Toll Booth Operator Name Role Phone Roxanna Acosta MD Primary Care Provider Encounter Details Date Type Department Care Team (Late st Contact Info) Description 01/13/[address] [facility] Primary Care - [address] [place] [address] Otf Talavera Social History Tobacco Use Types Packs/Day Years Used Date Smoking Tobacco: Never Assessed Comments Unknown Sex and Gender Information Value Date Recorded Sex Assigned at Not on file Legal Sex Female 4:02 AM WASTE RECYCLER Gender Identity Not on file Sexual Orientation Not on file documented as of this encounter Plan of Treatment Upcoming Encounters Date Type Department Care Team (Late st Contact Info) Description 10/27/2024 10:00 AM CDT Office Visit [facility] Oncology and Hematology - Farzad 2227 [facility] 200 [place] [address] Michele Smith MD 2227 [facility] [address] [place] [address] documented as of this encounter Visit Diagnoses Not on filedocumented in this encounter Care Teams Toll Booth Operator Relationship Specialty Start Date End Date Roxanna Acosta MD PCP - General Family Practice 02/19/12 documented as of this encounter
--- OUTSIDE RECORDS SUMMARY | 2024-08-26 13:05 | XMS_ITS | Encounter Summary ---
Author Organization [facility] Address [address] [place] [address] Care Team Providers Care Survey Technician Name Role Phone Roxanna Acosta MD Primary Care Provider Encounter Details Date Type Department Care Team (Late Contact Info) Description 05/20/2007 Outpatient Historical [facility] SHIPPING AND RECEIVING SPECIALIST - [address] [place] [address] Enrique Mckinney MD 1 [facility] [address] [place] [address] Social History Tobacco Use Types Packs/Day Years Used Date Smoking Tobacco: Never Assessed Comments Unknown Sex and Gender Information Value Date Recorded Sex Assigned at Not on file Legal Sex Female 4:02 AM DISPENSING LEAD Gender Identity Not on file Sexual Orientation Not on file documented as of this encounter Plan of Treatment Upcoming Encounters Date Type Department Care Team (Late st Contact Info) Description 10/27/2024 10:00 AM CDT Office Visit [facility] Oncology and Hematology - Farzad 2227 Tashia Mancini [facility] 200 [place] [address] Michele Smith MD 2227 [facility] [address] [place] [address] documented as of this encounter Visit Diagnoses Not on filedocumented in this encounter Care Teams Survey Technician Relationship Specialty Start Date End Date Roxanna Acosta MD PCP - General Family Practice 02/19/12 documented as of this encounter
--- OUTSIDE RECORDS SUMMARY | 2024-08-26 13:05 | XMS_ITS | Encounter Summary ---
Author Organization [facility] Address [address] [place] [address] Care Team Providers Care Certified Shorthand Reporter Name Role Phone Roxanna Acosta MD Primary Care Provider Encounter Details Date Type Department Care Team (Late Contact Info) Description 11/03/2006 Outpatient Historical [facility] Primary Care - [address] [place] [address] Barak Greenberg MD 8007 [facility] [address] [place], [place] [id number] Social History Tobacco Use Types Packs/Day Years Used Date Smoking Tobacco: Never Assessed Comments Unknown Sex and Gender Information Value Date Recorded Sex Assigned at Not on file Legal Sex Female 4:02 AM TALENT BUYER Gender Identity Not on file Sexual Orientation [...] Description 10/27/2024 10:00 AM CDT Office Visit [facility] Oncology and Hematology - Farzad 222 [facility] [address] [place] [address] Michele Smith MD 2227 [facility] [address] [place] [address] documented as of this encounter Visit Diagnoses Not on filedocumented in this encounter Care Teams Certified Shorthand Reporter Relationship Specialty Start Date End Date Roxanna Acosta MD PCP - General Family Practice 02/19/12 documented as of this encounter
--- OUTSIDE RECORDS SUMMARY | 2024-08-26 13:05 | XMS_ITS | Encounter Summary ---
Author Organization [facility] Address [address] [place] [address] Care Team Providers Care Heel Shaver Name Role Phone Roxanna Acosta MD Primary Care Provider [phone] Encounter Details Date Type Department Care Team (Late Contact Info) Description 02/17/2004 Outpatient Historical [facility] Barak Greenberg MD [address] [facility] [address] [place] [address] ABDOMINAL PAIN LUQ (Primary Dx) Social History Tobacco Use Types Packs/Day Years Used Date Smoking Tobacco: Never Assessed Comments Unknown Sex and Gender Information Value Date Recorded Sex Assigned at Not on file Legal Sex Female 4:02 AM OFFICE CLERK ASSISTANT Gender Identity Not on file Sexual Orientation Not on file documented as of this encounter Plan of Treatment Upcoming Encounters Date Type Department Care Team (Late Contact Info) Description 10/27/2024 10:00 AM CDT [facility] Oncology and Hematology - [place] [address] [facility] [address] [place] [address] Michele Smith MD [address] [facility] [address] [place] [address] documented as of this encounter Visit Diagnoses Diagnosis Abdominal pain, left upper quadrant- Primary documented in this encounter Care Teams Heel Shaver Relationship Specialty Start Date End Date Roxanna Acosta MD PCP - General Family Practice 02/19/12 documented as of this encounter
--- OUTSIDE RECORDS SUMMARY | 2024-08-26 13:05 | XMS_ITS | Encounter Summary ---
Author Organization [facility] Address 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 HELPER Gender Identity Not on file Sexual Orientation Not on file documented as of this encounter Plan of Treatment Upcoming Encounters Date Type Department Care Team (Late st Contact Info) Description 10/27/2024 10:00 AM CDT Office Visit [facility] Oncology and Hematology - [place] [address] [facility] 200 [place] [address] Michele Smith MD [address] [facility] [address] [place] [address] documented as of this encounter Visit Diagnoses Diagnosis Other current maternal conditions classifiable elsewhere, antepartum- Primary documented in this encounter Care Teams Sports Activities Foul Judge Relationship Specialty Start Date End Date Roxanna Acosta MD PCP - General Family Practice 02/19/12 documented as of this encounter
--- OUTSIDE RECORDS SUMMARY | 2024-08-26 13:05 | XMS_ITS | Encounter Summary ---
Author Organization [facility] Address 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 OPERATOR Gender Identity Not on file Sexual Orientation Not on file documented as of this encounter Plan of Treatment Upcoming Encounters Date Type Department Care Team (Late st Contact Info) Description 10/27/2024 10:00 AM CDT Office Visit [facility] Oncology and Hematology - [place] [address] [facility] 200 [place] [address] Michele Smith MD [address] [facility] [address] [place] [address] documented as of this encounter Visit Diagnoses Diagnosis First-degree perineal laceration, with delivery- Primary documented in this encounter Care Teams Window Decorator Relationship Specialty Start Date End Date Roxanna Acosta MD PCP - General Family Practice 02/19/12 documented as of this encounter
--- OUTSIDE RECORDS SUMMARY | 2024-08-26 13:05 | XMS_ITS | Encounter Summary ---
Author Organization [facility] Address [address] [place] [address] Care Team Providers Care Silk Blocker Name Role Phone Roxanna Acosta MD Primary Care Provider [phone] Encounter Details Date Type Department Care Team (Late Contact Info) Description 02/15/2004 Outpatient Historical [facility] Primary Care - [address] [place] [address] Barak Greenberg MD [address] [facility] [address] [place] [address] Social History Tobacco Use Types Packs/Day Years Used Date Smoking Tobacco: Never Assessed Comments Unknown Sex and Gender Information Value Date Recorded Sex Assigned at Not on file 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 Gender Identity Not on file Sexual Orientation Not on file documented as of this encounter Plan of Treatment Upcoming Encounters Date Type Department Care Team (Late Contact Info) Description 10/27/2024 10:00 AM CDT Office Visit [facility] Oncology and Hematology - [place] [address] [facility] 200 [place] [address] Michele Smith MD [address] [facility] [address] [place] [address] documented as of this encounter Visit Diagnoses Not on filedocumented in this encounter Care Teams Silk Blocker Relationship Specialty Start Date End Date Roxanna Acosta MD PCP - General Family Practice 02/19/12 documented as of this encounter
--- OUTSIDE RECORDS SUMMARY | 2024-08-26 13:05 | XMS_ITS | Encounter Summary ---
Author Organization [facility] Address [address] [place] [address] Care Team Providers Care Highway Maintainer Name Role Phone Roxanna Acosta MD Primary Care Provider [phone] Encounter Details Date Type Department Care Team (Late Contact Info) Description 07/20/2007 Outpatient Historical [facility] Maternal and Ground [address] [place] [phone] Naveed Means MD [address] [facility] [address] [place] [address] Social History Tobacco Use Types Packs/Day Years Used Date Smoking Tobacco: Never Assessed Comments Unknown Sex and Gender Information Value Date Recorded Sex Assigned at Not on file Legal Sex Female 4: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 Gender Identity Not on file Sexual Orientation Not on file documented as of this encounter Plan of Treatment Upcoming Encounters Date Type Department Care Team (Late Contact Info) Description 10/27/2024 10:00 AM CDT Office Visit [facility] Oncology and Hematology - [place] [address] [place] [address] Michele Smith MD [address] [facility] [address] [place] [address] documented as of this encounter Visit Diagnoses Not on filedocumented in this encounter Care Teams Highway Maintainer Relationship Specialty Start Date End Date Roxanna Acosta MD PCP - General Family Practice 02/19/12 documented as of this encounter
--- OUTSIDE RECORDS SUMMARY | 2024-08-26 13:05 | XMS_ITS | Encounter Summary ---
Author Organization [facility] Address [address] [place] [address] Care Team Providers Care Wildlife Veterinarian Name Role Phone Roxanna Acosta MD Primary Care Provider Encounter Details Date Type Department Care Team (Late Contact Info) Description 04/22/2007 Outpatient Historical [facility] NEONATAL DOCTOR - [address] [place] [address] Enrique Mckinney MD [address] 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 LINE CORE LAYER Gender Identity Not on file Sexual Orientation Not on file documented as of this encounter Plan of Treatment Upcoming Encounters Date Type Department Care Team (Late st Contact Info) Description 10/27/2024 10:00 AM CDT Office Visit [facility] Oncology and Hematology - [place] [address] [facility] 200 [place] [address] Michele Smith MD [address] [facility] [address] [place] [address] documented as of this encounter Visit Diagnoses Not on filedocumented in this encounter Care Teams Wildlife Veterinarian Relationship Specialty Start Date End Date Roxanna Acosta MD PCP - General Family Practice 02/19/12 documented as of this encounter
--- OUTSIDE RECORDS SUMMARY | 2024-08-26 13:05 | XMS_ITS | Encounter Summary ---
Author Organization [facility] Address [address] [place] [address] Care Team Providers Care Ghost Writer Name Role Phone Roxanna Acosta MD Primary Care Provider Encounter Details Date Type Department Care Team (Late Contact Info) Description 07/15/2007 Outpatient Historical [facility] STREET SUPERVISOR - [address] [place] [address] Enrique Mckinney MD 1 [facility] [address] [place] [phone] Social History Tobacco Use Types Packs/Day Years Used Date Smoking Tobacco: Never Assessed Comments Unknown Sex and Gender Information Value Date Recorded Sex Assigned at Not on file Legal Sex Female 4:02 AM PHYSICAL EDUCATION 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 Gender Identity Not on file Sexual Orientation Not on file documented as of this encounter Plan of Treatment Upcoming Encounters Date Type Department Care Team (Late st Contact Info) Description 10/27/2024 10:00 AM CDT Office Visit [facility] Oncology and Hematology - [place] [address] [facility] [address] [place] [address] Michele Smith MD 2[address] [facility] [address] [place] [address] documented as of this encounter Visit Diagnoses Not on filedocumented in this encounter Care Teams Ghost Writer Relationship Specialty Start Date End Date Roxanna Acosta MD PCP - General Family Practice 02/19/12 documented as of this encounter
--- OUTSIDE RECORDS SUMMARY | 2024-08-26 13:05 | XMS_ITS | Encounter Summary ---
Author Organization [facility] Address [address] [place] [address] Care Team Providers Care Advanced Practice Nurse Name Role Phone Roxanna Acosta MD Primary Care Provider Encounter Details Date Type Department Care Team (Late st Contact Info) Description 12/09/2005 Orders Only [facility] Primary Care - [address] [place] [address] Barak Greenberg MD [address] [facility] [address] [place] [address] Social History Tobacco Use Types Packs/Day Years Used Date Smoking Tobacco: Never Assessed Comments Unknown Sex and Gender Information Value Date Recorded Sex Assigned at Not on file Legal Sex Female 4:02 AM TREATING ENGINEER HELPER Gender Identity Not on file Sexual Orientation Not on file documented as of this encounter Progress Notes * Barak Greenberg MD - 05/13/2008 4:06 AM CDT TIME:09:47 am PATIENT`S HOME PHONE: PATIENT`S WORK PHONE: PATIENT`S INSURANCE: [employer] WHO TOOK THE CALL: [place]lin [place] GENERAL INFORMATION PATIENT STATUS: Established Patient. LAST VISIT: 02-15-04 PCP: rian. ALTERNATIVE PHONE NUMBER: [phone] WHO CALLED: Patient called. CURRENT ALLERGY LIST: [facility] NUMBER: [phone] PROBLEMS: pt daughter had a staph infection and now the pt thinks she has a staph infection, pt hasa bump on waist line, it's filled with puss and getting bigger SECTION 1: REQUESTED ACTION thien 12/09/05 at 09:50 am: MEDICATION REQUEST: Collin DOCTOR`S RESPONSE: mayda 12/09/05 at 10:05 am I can see at 3:30 today FINAL ACTION: salty 12/09/05 at 10:26 am Spoke with patient 12/09/05 at 10:26 am. Booked appointment: 12-09 3:30p...........Silva Electronically Signed by: Silva Calle on [...] amt of purulent fluid was expressed ASSESSMENT/PLAN: 682.2-OTHER CELLULITIS AND ABSCESS counseled extensively on treatment, and eradication possible colonization with hibiclens MEDICATIONS: BACTROBAN EXTERNAL OINTMENT 2 %, apply twice daily, 30 Dispensed, status: NEW HISTORY, 12/09/2005. SPECIALTY REFERRAL: PODIATRY Dr. Mendez Panda ph: [phone] fax: [phone]. Electronically Signed by: Barak Greenberg MD on Friday, December 09, 2005 documented in this encounter Plan of Treatment Upcoming Encounters Date Type Department Care Team (Late st Contact Info) Description 10/27/2024 10:00 AM CDT [facility] Visit [facility] Oncology and Hematology [facility] [address] [facility] 200 [place] [address] Michele Smith MD 2[address] [facility] [address] [place] [address] documented as of this encounter Visit Diagnoses Not on filedocumented in this encounter Care Teams Advanced Practice Nurse Relationship Specialty Start Date End Date Roxanna Acosta MD PCP - General Family Practice 02/19/12 documented as of this encounter
--- OUTSIDE RECORDS SUMMARY | 2024-08-26 13:05 | XMS_ITS | Encounter Summary ---
Author Organization [facility] Address [address] [place] [address] Care Team Providers Care Health Tech Name Role Phone Roxanna Acosta MD Primary Care Provider Encounter Details Date Type Department Care Team (Late st Contact Info) Description 11/27/2006 Orders Only [facility] Primary Care - [address] [place] [address] Barak Greenberg MD [address] [facility] [address] [place] [address] Social History Tobacco Use Types Packs/Day Years Used Date Smoking Tobacco: Never Assessed Comments Unknown Sex and Gender Information Value Date Recorded Sex Assigned at Not on file Legal Sex Female 4:02 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 LAST VISIT: 11-03-06 PCP: keon. ALTERNATIVE PHONE NUMBER: [phone] WHO CALLED: Patient called. CURRENT ALLERGY LIST: [facility] NUMBER: [phone] PROBLEMS: pt had miscarriage 09/10 got again and had miscarriage 11/24/06, pts anxiety increased and wants to know if you can increase her Lexapro now that she is not ?...sylwia SECTION 1: DOCTOR`S RESPONSE: riangd 11/27/06 at 02:32 pm okay to increase, if she wants to try to get again she should let me know, we should stop the lexapro MEDICATIONS: Call in to Pharmacy LEXAPRO ORAL TABLET 5 MG, 1 tab each day, 30 Dispensed, 5 Fills, status: DISCONTINUED, 11/27/2006, Comment: called to [phone]...sylwia. LEXAPRO ORAL TABLET 10 MG, 1 Every [...] Description 10/27/2024 10:00 AM CDT Office Visit [facility] Oncology and Hematology - Farzad [address] [facility] 200 [place] [address] Michele Smith MD [address] [facility] [address] [place] [address] documented as of this encounter Visit Diagnoses Not on filedocumented in this encounter Care Teams Health Tech Relationship Specialty Start Date End Date Roxanna Acosta MD PCP - General Family Practice 02/19/12 documented as of this encounter
--- OUTSIDE RECORDS SUMMARY | 2024-08-26 13:05 | XMS_ITS | Encounter Summary ---
Author Organization [facility] Address [address] [place] [address] Care Team Providers Care Stone Polisher Machine Name Role Phone Roxanna Acosta MD Primary Care Provider Encounter Details Date Type Department Care Team (Latest Contact Info) Description 05/20/2007 Outpatient Historical [facility] CNC MILL OPERATOR - [address] [place] [address] Enrique Mckinney MD [address] [facility] [address] [place] [phone] State, Incidental (Primary Dx) Social History Tobacco Use Types Packs/Day Years Used Date Smoking Tobacco: Never Assessed Comments Unknown Sex and Gender Information Value Date Recorded Sex Assigned at Not on file Legal Sex Female 4:02 AM HEEL GOUGER Gender Identity Not on file Sexual Orientation Not on file documented as of this encounter Plan of Treatment Upcoming Encounters Date Type Department Care Team (Late st Contact Info) Description 10/27/2024 10:00 AM CDT Office Visit [facility] Oncology and Hematology - [place] [address] [facility] [address] [place] [address] Michele Smith MD [address] [facility] [address] [place] [address] documented as of this encounter Procedures Procedure Name Priority Date/Time Associated Diagnosis Comments HIV DETECTION W/REFLX CONFIRMATION Routine 05/20/2007 4:45 PM CDT HEPATITIS B SURFACE ANTIGEN Routine 05/20/2007 4:45 PM CDT RUBELLA IGG Routine 05/20/2007 4:45 PM CDT CBC WITH DIFFERENTIAL Routine 05/20/2007 4:45 PM CDT CBC WITH DIFFERENTIAL Routine 05/20/2007 4:45 PM CDT RPR Routine 05/20/2007 4:45 PM CDT TSH Routine 05/20/2007 4:45 PM CDT documented in this encounter Results * TSH (05/20/2007 4:45 PM CDT) TSH 2.03 0.27 - 4.20 uU/mL INTERFACE SYSTEM 05/20/2007 4:45 PM CDT us Enrique Mckinney MD CHEMISTRY ORDERABLES Edited INTERFACE SYSTEM Refer to clinic/hospital department * (ABNORMAL) CBC WITH DIFFERENTIAL (05/20/2007 4:45 PM CDT) NEUTROPHILS 71(H) 45 - 70 % INTERFAC E SYSTEM LYMPHOCYTES 23 16 - 45 % INTERFAC E SYSTEM MONOCYTES 5 3 - 13 % INTERFACE SYSTEM EOSINOPHILS 1 0 - 7 % INTERFAC E SYSTEM BASOPHILS 0 0 - 2 % INTERFACE SYSTEM NEUTROPHIL ABSOLUTE 5.10 1.90 - 7.00 K/uL INTERFACE SYSTEM LYMPHOCYTE ABSOLUTE 1.67 0.70 - 4.50 K/uL INTERFACE SYSTEM MONOCYTE ABSOLUTE 0.36 0.10 - 1.30 K/uL INTERFACE SYSTEM EOSINOPHIL ABSOLUTE 0.08 0.00 - 0.70 K/uL INTERFACE SYSTEM BASOPHILS ABSOLUTE 0.02 0.00 - 0.20 K/uL INTERFACE SYSTEM 05/20/2007 4:45 PM CDT Enrique Mckinney MD HEMATOLOGY ORDERABLES Edited Performing Organization Address City/[facility] Co de Phone Number INTERFACE SYSTEM Refer to clinic/hospital department * (ABNORMAL) CBC WITH DIFFERENTIAL (05/20/2007 4:45 PM CDT) WBC 7.2 4.0 - 9.8 K/uL INTERFACE SYSTEM RBC 4.47 3.90 - 4.90 M/uL INTERFACE SYSTEM HEMOGLOBIN 13.1 11.8 - 14.8 g/dL INTERFACE SYSTEM HEMATOCRIT 37.7 35.5 - 44.0 % INTERFACE SYSTEM MCV 84.3 82.0 - 99.0 fL INTERFACE SYSTEM MCH 29.3 27.2 - 32.6 pg INTERFACE SYSTEM MCHC 34.7 31.5 - 35.5 % INTERFACE SYSTEM RDW 14.2 11.5 - 14.5 % INTERFACE SYSTEM RDW-STDEV 43.8 37.1 - 48.7 fL INTERFACE SYSTEM PLATELETS 187 140 - 350 K/uL INTERFACE SYSTEM MPV 12.7(H) 9.3 - 12.4 fL INTERFACE SYSTEM 05/20/2007 4:45 PM CDT Enrique Mckinney MD HEMATOLOGY ORDERABLES Edited Performing Organization Address [facility] Phone Number INTERFACE SYSTEM Refer to clinic/hospital department * HIV ANTIBODY W/REFLX CONFIRMATION (05/20/2007 4:45 PM CDT) HIV-1 AND 2 ABS NON-REACTI VE NON-REACT BREEZY INTERFACE SYSTEM Comment: Effective January 05, 2007, HIV 1/2 Antibody Screen with Reflexed Confirmati on has replaced HIV-1 Antibody Screen. HIV-1 Antibody Screen is no longer offered due to lack of available kits from the rental clerk. A NON-REACTIVE HIV 1/2 ANTIBODY RESULT DOES NOT EXCLUDE HIV INFECTION SINCE THE TIME FRAME FOR SEROCONVERSION IS VARIABLE. IF ACUTE HIV INFECTION IS SUSPECTED, ANTIBODY RETESTING AND NUCLEIC ACID AMPLIFICATION (HIV DNA/RNA) TESTING IS RECOMMENDED. ? Lab test performed by: [facility] [id number] [place] [id number] ALLIE CARDENAS MD 05/20/2007 4:45 PM CDT Enrique Mckinney MD CHEMISTRY ORDERABLES Edited Performing Organization Address [facility] de Phone Number INTERFACE SYSTEM Refer to clinic/hospital department * HEPATITIS B SURFACE ANTIGEN (05/20/2007 4:45 PM CDT) HEPATITIS B SURFACE AG NON-REACTI VE NON-REACT BREEZY INTERFACE SYSTEM Comment: Lab test performed by: [facility] [address] [id number] [facility] [id number] ALLIE CARDENAS MD 05/20/2007 4:45 PM CDT Enrique Mckinney MD CHEMISTRY ORDERABLES Edited Performing Organization Address [facility] de Phone Number INTERFACE SYSTEM Refer to clinic/hospital department * RUBELLA IGG (05/20/2007 4:45 PM CDT) RUBELLA IGG 2.57 EIA Value INTERFAC E SYSTEM Comment: EIA VALUE ? EXPLANATION OF TEST RESULTS --------- ? <0.91 ?NEGATIVE - NO RUBELLA IGG ANTIBODY ?DETECTED. 0.91 - 1.09 ?EQUIVOCAL > OR = 1.10 ?POSITIVE - RUBELLA IGG ANTIBODY DETECTED. THE PRESENCE OF RUBELLA IGG ANTIBODY SUGGESTS IMMUNIZATION OR PAST OR CURRENT INFECTION WITH RUBELLA VIRUS. ? Lab test performed by: [facility] [id number] [place] [id number] ALLIE CARDENAS MD 05/20/2007 4:45 PM CDT Enrique Mckinney MD CHEMISTRY ORDERABLES Edited INTERFACE SYSTEM Refer to clinic/hospital department * RPR (05/20/2007 4:45 PM CDT) RPR NON-REACTI VE NON-REACT BREEZY INTERFACE SYSTEM Comment: Lab test performed by: [facility] [id number] [place] [id number] ALLIE CARDENAS MD 05/20/2007 4:45 PM CDT us Enrique Mckinney MD CHEMISTRY ORDERABLES Edited INTERFACE SYSTEM Refer to clinic/hospital department documented in this encounter Visit Diagnoses Diagnosis state, incidental- Primary documented in this encounter Care Teams Stone Polisher Machine Relationship Specialty Start Date End Date Roxanna Acosta MD PCP - General Family Practice 02/19/12 documented as of this encounter
--- OUTSIDE RECORDS SUMMARY | 2024-08-26 13:05 | XMS_ITS | Encounter Summary ---
Author Organization [facility] Address 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 SPECIALIST Gender Identity Not on file Sexual Orientation Not on file documented as of this encounter Plan of Treatment Upcoming Encounters Date Type Department Care Team (Late st Contact Info) Description 10/27/2024 10:00 AM CDT Office Visit [facility] Oncology and Hematology - Farzad [address] [facility] [address] [place] [address] Michele Smith MD 2227 [facility] [address] [place] [address] documented as of this encounter Procedures Procedure Name Priority Date/Time Associated Diagnosis Comments CBC WITH DIFFERENTIAL Routine 10/26/2004 11:50 AM SOIL FERTILITY SPECIALIST CBC WITH DIFFERENTIAL Routine 10/26/2004 11:50 AM SOIL FERTILITY SPECIALIST URINALYSIS W/REFLEX MICROSCOPIC Routine 10/26/2004 11:50 AM SOIL FERTILITY SPECIALIST URINALYSIS W/REFLEX MICROSCOPIC Routine 10/26/2004 11:15 AM SOIL FERTILITY SPECIALIST documented in this encounter Results * URINALYSIS (10/26/2004 11:50 AM SOIL FERTILITY SPECIALIST) COLOR UA Yellow INTERFACE SYSTEM CLARITY UA [...] /HPF INTERFACE SYSTEM 10/26/2004 11:5 0 AM SOIL FERTILITY SPECIALIST Freddie Márquez URINE ORDERABLES Final Result Performing Organization Address [facility] Phone Number INTERFACE SYSTEM Refer to clinic/hospital department * (ABNORMAL) CBC WITH DIFFERENTIAL (10/26/2004 11:50 AM SOIL FERTILITY SPECIALIST) NEUTROPHILS 74(H) 45 - 70 % INTERFAC [...] K/uL INTERFACE SYSTEM 10/26/2004 11:5 0 AM SOIL FERTILITY SPECIALIST Freddie Márquez HEMATOLOGY ORDERABLES Final Resu lt Performing Organization Address [facility] Phone Number INTERFACE SYSTEM Refer to clinic/hospital department * (ABNORMAL) CBC WITH DIFFERENTIAL (10/26/2004 11:50 AM SOIL FERTILITY SPECIALIST) WBC 7.6 4.0 - 9.8 K/uL INTERFACE [...] fL INTERFACE SYSTEM 10/26/2004 11:5 0 AM SOIL FERTILITY SPECIALIST us Freddie Márquez HEMATOLOGY ORDERABLES Final Resu lt Performing Organization Address [facility] Phone Number INTERFACE SYSTEM Refer to clinic/hospital department * (ABNORMAL) URINALYSIS (10/26/2004 11:15 AM SOIL FERTILITY SPECIALIST) COLOR UA Colorless INTERFACE SYSTEM CLARITY UA [...] /HPF INTERFACE SYSTEM 10/26/2004 11:1 5 AM SOIL FERTILITY SPECIALIST us Freddie Márquez URINE ORDERABLES Final Result Performing Organization Address [facility] de Phone Number INTERFACE SYSTEM Refer to clinic/hospital department documented in this encounter Visit Diagnoses Diagnosis Other current maternal conditions classifiable elsewhere, antepartum- Primary documented in this encounter Care Teams Molecular Physicist Relationship Specialty Start Date End Date Roxanna Acosta MD PCP - General Family Practice 02/19/12 documented as of this encounter
--- OUTSIDE RECORDS SUMMARY | 2024-08-26 13:05 | XMS_ITS | Encounter Summary ---
Author Organization [facility] Address 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 [address] [place] [address] Michele Smith MD [address] [facility] [address] [place] [address] documented as of this encounter Visit Diagnoses Not on filedocumented in this encounter Care Teams Tile Applicator Relationship Specialty Start Date End Date Roxanna Acosta MD PCP - General Family Practice 02/19/12 documented as of this encounter
--- OUTSIDE RECORDS SUMMARY | 2024-08-26 13:05 | XMS_ITS | Encounter Summary ---
Author Organization [facility] Address [address] [place] [address] Care Team Providers Care Fiber Worker Name Role Phone Roxanna Acosta MD Primary Care Provider Encounter Details Date Type Department Care Team (Late Contact Info) Description 07/29/2007 Outpatient Historical HIS OB PREADMIT Enrique Mckinney MD [address] [address] Social History Tobacco Use Types Packs/Day Years Used Date Smoking Tobacco: Never Assessed Comments Unknown Sex and Gender Information Value Date Recorded Sex Assigned at Not on file Legal Sex Female 4:02 AM BOILER SETTER Gender Identity Not on file Sexual Orientation Not on file documented as of this encounter Plan of Treatment Upcoming Encounters Date Type Department Care Team (Late Contact Info) Description 10/27/2024 10:00 AM CDT [facility] Visit [facility] Oncology and Hematology - Farzad [address] [facility] 200 [place] [address] Michele Smith MD 2[address] [facility] [address] [place] [address] documented as of this encounter Procedures Procedure Name Priority Date/Time Associated Diagnosis Comments URINALYSIS WITH REFLEX CULTURE Routine 07/29/2007 12:18 PM BOILER SETTER URINALYSIS W/REFLEX MICROSCOPIC Routine 07/29/2007 12:18 PM BOILER SETTER documented in this encounter Results * URINALYSIS (07/29/2007 12:18 PM BOILER SETTER) COLOR UA Pale Yellow INTERFAC E SYSTEM [...] Negative INTERFACE SYSTEM 07/29/2007 12:1 8 PM BOILER SETTER Enrique Mckinney MD URINE ORDERABLES Edited Performing Organization Address [facility] Phone Number INTERFACE SYSTEM Refer to clinic/hospital department * URINALYSIS WITH REFLEX CULTURE (07/29/2007 12:18 PM BOILER SETTER) URINE CULTURE ORDER Not indicated INTERFACE SYSTEM Comment: Criteria for a reflex culture include one or more of the following: ??Abn ormal nitrite, leukocyte esterase, WBCs or RBCs. ??Lack of qualifying criteria does not exclude the possiblity of a urinary tract infection. ??Dilute urine, drug interference, etc. may decrease the sensitivity of the criteria analytes. 07/29/2007 12:1 8 PM BOILER SETTER Enrique Mckinney MD URINE ORDERABLES Edited Performing Organization Address [facility] Phone Number INTERFACE SYSTEM Refer to clinic/hospital department documented in this encounter Visit Diagnoses Not on filedocumented in this encounter Care Teams Fiber Worker Relationship Specialty Start Date End Date Roxanna Acosta MD PCP - General Family Practice 02/19/12 documented as of this encounter
--- OUTSIDE RECORDS SUMMARY | 2024-08-26 13:05 | XMS_ITS | Encounter Summary ---
Author Organization [facility] Address [address] [place] [address] Care Team Providers Care Sandwich And Drink Cart Operator Name Role Phone Roxanna Acosta MD Primary Care Provider [phone] Encounter Details Date Type Department Care Team (Late Contact Info) Description 06/18/2007 Outpatient Historical [facility] HOSE BUILDER - Medical [address] [address] Enrique Mckinney MD [address] [address] Social History Tobacco Use Types Packs/Day Years Used Date Smoking Tobacco: Never Assessed Comments Unknown Sex and Gender Information Value Date Recorded Sex Assigned at Not on file Legal Sex Female 4:02 AM FLAMER AFTER LASTING Gender Identity Not on file Sexual Orientation Not on file documented as of this encounter Plan of Treatment Upcoming Encounters Date Type Department Care Team (Late st Contact Info) Description 10/27/2024 10:00 AM CDT Office Visit [facility] Oncology and Hematology - Far[place]ad [address]anc[address] [facility] 200 [place] [address] Michele Smith MD 2[address] [facility] [address] [place] [address] documented as of this encounter Visit Diagnoses Not on filedocumented in this encounter Care Teams Sandwich And Drink Cart Operator Relationship Specialty Start Date End Date Roxanna Acosta MD PCP - General Family Practice 02/19/12 documented as of this encounter
--- OUTSIDE RECORDS SUMMARY | 2024-08-26 13:05 | XMS_ITS | Encounter Summary ---
Author Organization [facility] Address [address] [place] [address] Care Team Providers Care Furnace Stock Inspector Name Role Phone Roxanna Acosta MD Primary Care Provider Encounter Details Date Type Department Care Team (Late st Contact Info) Description 05/01/2006 Orders Only [facility] Primary Care - [facility] [address] [place] [address] [address] [place] [address] Barak Greenberg MD [address] [facility] [address] [place] [address] Social History Tobacco Use Types Packs/Day Years Used Date Smoking Tobacco: Never Assessed Comments Unknown Sex and Gender Information Value Date Recorded Sex Assigned at Not on file Legal Sex Female 4:02 AM SPIRAL WINDING MACHINE HELPER Gender Identity Not on file Sexual Orientation Not on file documented as of this encounter Progress Notes * Barak Greenberg MD - 05/17/2008 6:57 PM CDT [facility] BARAK GREENBREG MD [address] [place] [address] May 01, 2006 ASHOK JIMENEZ [address] [place] [address] ASHOK JIMENEZ has been under our care during the [...] Description 10/27/2024 10:00 AM CDT Office Visit [facility] Oncology and Hematology - Farzad [address] [facility] 200 [place] [address] Michele Smith MD [address] [facility] [address] [place] [address] documented as of this encounter Visit Diagnoses Not on filedocumented in this encounter Care Teams Furnace Stock Inspector Relationship Specialty Start Date End Date Roxanna Acosta MD PCP - General Family Practice 02/19/12 documented as of this encounter
--- OUTSIDE RECORDS SUMMARY | 2024-08-26 13:05 | XMS_ITS | Encounter Summary ---
Author Organization [facility] Address [address] [place] [address] Care Team Providers Care White Sidewall Tire Buffer Name Role Phone Roxanna Acosta MD Primary Care Provider [phone] Encounter Details Date Type Department Care Team (Latest Contact Info) Description 10/07/2005 Outpatient Historical HIS OB PREADMIT Cecil Schofield MD [address] [facility] [address] [place] [phone] Kelechi Dixon MD NO ADDRESS ON FILE Other Specified Complication, Antepartum (Primary Dx) Social History Tobacco Use Types Packs/Day Years Used Date Smoking Tobacco: Never Assessed Comments Unknown Sex and Gender Information Value Date Recorded Sex Assigned at Not on file Legal Sex Female 4:02 AM EXTRACTOR MACHINE OPERATOR Gender Identity Not on file Sexual Orientation Not on file documented as of this encounter Plan of Treatment Upcoming Encounters Date Type Department Care Team (Late st Contact Info) Description 10/27/2024 10:00 AM CDT Office Visit [facility] Oncology and Hematology - Farzad [address] [facility] [place] [address] [place] [address] Michele Smith MD 2[address] [facility] [address] [place] [address] documented as of this encounter Procedures Procedure Name Priority Date/Time Associated Diagnosis Comments CBC WITH DIFFERENTIAL Routine 10/07/2005 2:54 PM EXTRACTOR MACHINE OPERATOR CBC WITH DIFFERENTIAL Routine 10/07/2005 2:54 PM EXTRACTOR MACHINE OPERATOR documented in this encounter Results * (ABNORMAL) CBC WITH DIFFERENTIAL (10/07/2005 2:54 PM EXTRACTOR MACHINE OPERATOR) NEUTROPHILS 72(H) 45 - 70 % INTERFAC [...] 0.20 K/uL INTERFACE SYSTEM 10/07/2005 2:54 PM EXTRACTOR MACHINE OPERATOR Kelechi Dixon MD HEMATOLOGY ORDERABLES Final Result INTERFACE SYSTEM Refer to clinic/hospital department * (ABNORMAL) CBC WITH DIFFERENTIAL (10/07/2005 2:54 PM EXTRACTOR MACHINE OPERATOR) Pathologist [facility] WBC 8.9 4.0 - 9.8 K/uL INTERFACE [...] 12.4 fL INTERFACE SYSTEM 10/07/2005 2:54 PM EXTRACTOR MACHINE OPERATOR us Kelechi Dixon MD HEMATOLOGY ORDERABLES Final Result INTERFACE SYSTEM Refer to clinic/hospital department documented in this encounter Visit Diagnoses Diagnosis Other specified complication, antepartum(646.83)- Primary Other specified complication, antepartum documented in this encounter Care Teams White Sidewall Tire Buffer Relationship Specialty Start Date End Date Roxanna Acosta MD PCP - General Family Practice 02/19/12 documented as of this encounter
--- OUTSIDE RECORDS SUMMARY | 2024-08-26 13:05 | XMS_ITS | Encounter Summary ---
Author Organization [facility] Address [address] [place] [address] Care Team Providers Care Senior Firmware Engineer Name Role Phone Roxanna Acosta MD Primary Care Provider [phone] Encounter Details Date Type Department Care Team (Late st Contact Info) Description 11/14/2003 Outpatient Historical [facility] Primary Care - [address] [place] [address] Otf Talavera Social History Tobacco Use Types Packs/Day Years Used Date Smoking Tobacco: Never Assessed Comments Unknown Sex and Gender Information Value Date Recorded Sex Assigned at Not on file Legal Sex Female 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 PROBATION OFFICER Gender Identity Not on file Sexual Orientation Not on file documented as of this encounter Plan of Treatment Upcoming Encounters Date Type Department Care Team (Late st Contact Info) Description 10/27/2024 10:00 AM CDT Office Visit [facility] Oncology and Hematology - Farzad [address] [facility] [address] [place] [address] Michele Smith MD [address] [facility] [address] [place] [address] documented as of this encounter Visit Diagnoses Not on filedocumented in this encounter Care Teams Senior Firmware Engineer Relationship Specialty Start Date End Date Roxanna Acosta MD PCP - General Family Practice 02/19/12 documented as of this encounter
--- OUTSIDE RECORDS SUMMARY | 2024-08-26 13:05 | XMS_ITS | Encounter Summary ---
Author Organization [facility] Address [address] [place] [address] Care Team Providers Care Core Carrier Name Role Phone Roxanna Acosta MD Primary Care Provider Encounter Details Date Type Department Care Team (Late Contact Info) Description 05/01/2006 Outpatient Historical [facility] Primary Care - [address] [place] [address] Barak Greenberg MD [address] [facility] [address] [place], [place] [id number] Social History Tobacco Use Types Packs/Day Years Used Date Smoking Tobacco: Never Assessed Comments Unknown Sex and Gender Information Value Date Recorded Sex Assigned at Not on file Legal Sex Female 4:02 AM HOSIERY LOOPER Gender Identity Not on file Sexual Orientation [...] [facility] - [place] [address] [facility] [address] [place] [address] Michele Smith MD 2[address] [facility] [address] [place] [address] documented as of this encounter Visit Diagnoses Not on filedocumented in this encounter Care Teams Core Carrier Relationship Specialty Start Date End Date Roxanna Acosta MD PCP - General Family Practice 02/19/12 documented as of this encounter
--- OUTSIDE RECORDS SUMMARY | 2024-08-26 13:06 | XMS_ITS | Encounter Summary ---
Author Organization [facility] Address 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 Gender Identity Not on file Sexual Orientation Not on file documented as of this encounter Plan of Treatment Upcoming Encounters Date Type Department Care Team (Late st Contact Info) Description 10/27/2024 10:00 AM CDT Office Visit [facility] Oncology and Hematology - Farzad 2[address] [facility] 200 [place] [address] Michele Smith MD [address] [facility] [address] [place] [address] documented as of this encounter Visit Diagnoses Not on filedocumented in this encounter Care Teams Refractory Grinder Operator Relationship Specialty Start Date End Date Roxanna Acosta MD PCP - General Family Practice 02/19/12 documented as of this encounter
--- OUTSIDE RECORDS SUMMARY | 2024-08-26 13:06 | XMS_ITS | Encounter Summary ---
Author Organization [facility] Address 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 Gender Identity Not on file Sexual Orientation Not on file documented as of this encounter Plan of Treatment Upcoming Encounters Date Type Department Care Team (Late st Contact Info) Description 10/27/2024 10:00 AM CDT Office Visit [facility] Oncology and Hematology - Farzad [address] T[address] Manc[address] [facility] [address] [place] [address] Michele Smith MD 2[address] [facility] [address] [place] [address] documented as of this encounter Visit Diagnoses Diagnosis Undiagnosed cardiac murmurs- Primary documented in this encounter Care Teams Organizational Psychologist Relationship Specialty Start Date End Date Roxanna Acosta MD PCP - General Family Practice 02/19/12 documented as of this encounter
--- OUTSIDE RECORDS SUMMARY | 2024-08-26 13:06 | XMS_ITS | Encounter Summary ---
Author Organization [facility] Address [address] [place] [address] Care Team Providers Care Substance Abuse Technician Name Role Phone Roxanna Acosta MD Primary Care Provider Encounter Details Date Type Department Care Team (Late st Contact Info) Description 11/19/[address] 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 Oncology and Hematology - Farzad 2[address] [facility] [address] [place] [address] Michele Smith MD [address] [facility] [address] [place] [address] documented as of this encounter Visit Diagnoses Not on filedocumented in this encounter Care Teams Substance Abuse Technician Relationship Specialty Start Date End Date Roxanna Acosta MD PCP - General Family Practice 02/19/12 documented as of this encounter
--- OUTSIDE RECORDS SUMMARY | 2024-08-26 13:06 | XMS_ITS | Encounter Summary ---
Author Organization [facility] Address 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 Gender Identity Not on file Sexual Orientation Not on file documented as of this encounter Plan of Treatment Upcoming Encounters Date Type Department Care Team (Late Contact Info) Description 10/27/2024 10:00 AM CDT Office Visit [facility] Oncology and Hematology - Farzad [address] [facility] 200 [place] [address] Michele Smith MD [address] [facility] [address] [place] [address] documented as of this encounter Visit Diagnoses Not on filedocumented in this encounter Care Teams Tobacco Roller Relationship Specialty Start Date End Date Roxanna Acosta MD PCP - General Family Practice 02/19/12 documented as of this encounter
--- OUTSIDE RECORDS SUMMARY | 2024-08-26 13:06 | XMS_ITS | Referral Summary ---
Author Organization [address] Address [address] [place] [address] Care Team Providers Care Physicist Cryogenics Name Role Phone Camille Costello DO Primary Care Provi roxanne Allergies Active Allergy Reactions Criticality Noted Date Comments Benadryl Decongestant Other (See comments) Low 01/03 Feel bad physically and mentally Medications dextroamphetami ne-amphetamine XR (ADDERALL XR) 30 mg 24 hr capsule Take 1 capsule (30 mg total) by mouth telecommunications line mechanic before breakfast 1 Active ferrous sulfate ER [...] on file Legal Sex Female 7:01 PM INTERNAL GRINDING MACHINE OPERATOR Gender Identity Not on file [...] on file Insurance CHOICE PLUS Care Teams Physicist Cryogenics Relationship Specialty Start Date End Date Camille Costello DO [address] [place], [place] [phone] PCP - General Family Medicine 09/27/21
--- OUTSIDE RECORDS SUMMARY | 2024-08-26 13:06 | XMS_ITS | Clinical Summary ---
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
--- OUTSIDE RECORDS SUMMARY | 2024-08-26 13:06 | XMS_ITS | Encounter Summary ---
Author Organization [facility] Address 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 Gender Identity Not on file Sexual Orientation Not on file documented as of this encounter Plan of Treatment Upcoming Encounters Date Type Department Care Team (Late Contact Info) Description 10/27/2024 10:00 AM CDT Office Visit [facility] Oncology and Hematology - Far[place] [address] [facility] [address] [place] [address] Michele Smith MD 2[address] [facility] [address] [place] [address] documented as of this encounter Visit Diagnoses Not on filedocumented in this encounter Care Teams Medical Representative Relationship Specialty Start Date End Date Roxanna Acosta MD PCP - General Family Practice 02/19/12 documented as of this encounter
--- OUTSIDE RECORDS SUMMARY | 2024-08-26 13:06 | XMS_ITS | Continuity of Care Document ---
Author Organization [facility] Address [address] [place] [address] Phone Care Team Providers Care Land Resource Specialist Name Role Phone Trang Camille FORTUNE Unavailable [...] HG Pt inelig neg scrn depres OFFICE [id number] BODY MASS INDEX DOCD IMMUN ADMIN (INC [...] Diagnoses Date Provider Providers Copied on Encounter [facility], [address], [place], [place], [id number], tel:[phone] [facility] Complete Care No Information 3 Trang Obrien . [address] [place] [address], [id number] , . tel:[phone] [facility], [id number] [place] [address], [id number], tel:[phone] [facility] Complete Care No Information 2 Trang Obrien . [address] [place] [address], [id number] , . tel:[phone] PREVENTATIVE- EST: 40-64 [facility], [address] [place] [address], [id number], tel:[phone] [facility] Complete Care preventive exam (chief complaint) Well woman exam with routine gynecological examEncounter for screening mammogram for malignant neoplasm of breastADHD, predominantly inattentive type 2 Trang Obrien . [address] [place] [address], [id number] , . tel:[phone] Referring Provider: Camille Costello, [address] [place] [address], [place], [address] . tel:[phone] OFFICE UVPEC-ICH-TBH ANDED [facility], [address] [place] [address], [id number], tel:[phone] [facility] Telehealth (chief complaint) ADHD, predominantly inattentive type 2 Tragn Obrien . [address] [place] [address], [id number] , . tel:[phone] Referring Provider: Camille Costello, [address] [place] [address], [address] . tel:[phone] [facility], [address], [place], [place], [id number], tel:[phone] [facility] No Information 1 Trang Obrien . [address] [place] [address], [id number] , . tel:[phone] Referring Provider: Camille Costello, [address] [place] [address], [address] . tel:[phone] [facility], [address], [place], [place], [id number], tel:[phone] [facility] No Information 1 Trang Obrien . [address] [place] [address], [id number] , . tel:[phone] Referring Provider: Camille Costello, [address] [place] [address], [address] . tel:[phone] [facility], [address], [place], [place], [id number], tel:[phone] [facility] Microcytic anemia 1 Trang Obrien . [address] [place] [address], [id number] , . tel:[phone] PREVENTATIVE- NEW: 40-64 [facility], [address], [place], [id number], tel:[phone] [facility] ADD/ADHD initial visit (chief complaint)p reventive exam (chief complaint) ADHD, predominantly inattentive typeEstablishing care with new doctor, encounter forMeasles, mumps, rubella (MMR) vaccination status unknownEncntr screen mammogram for malignant neoplasm of breast 1 Trang Serranozabeth . [address] [facility], [address], [id number] , [place]. tel:[phone] Referring Provider: Camille Costello, [address] [facility] [address], [place], [address] . tel:[phone] Family History Family Member Type Diagnosis Age [...] party ID Authorebonya tishayne(s) 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 [id number] [employer] CI [id number] [employer] CI [id number] [employer] CI [id number] Social History Type Description Quantity Date Captured [...] Order: Radiology Order SC REENING MAMMOGRAM (CAD) ([id number]), Sent on: Sent Future Order: Radiology Order SC REENING MAMMOGRAM (CAD) Bilateral breast ([id number]), Body Site: breast, Sent on: Sent History [...]
--- OUTSIDE RECORDS SUMMARY | 2024-08-26 13:06 | XMS_ITS | Encounter Summary ---
Author Organization [facility] Address [address] [place] [address] Care Team Providers Care Corporate Tax Preparer Name Role Phone Roxanna Acosta MD Primary Care Provider Encounter Details Date Type Department Care Team (Late st Contact Info) Description 12/20/2002 Outpatient Historical [facility] Primary Care - [address] [place] [address] Otf Talavera Social History Tobacco Use Types Packs/Day Years Used Date Smoking Tobacco: Never Assessed Comments Unknown Sex and Gender Information Value Date Recorded Sex Assigned at Not on file Legal Sex Female 4:02 AM MUFFLER HAND Gender Identity Not on file Sexual Orientation Not on file documented as of this encounter Plan of Treatment Upcoming Encounters Date Type Department Care Team (Late st Contact Info) Description 10/27/2024 10:00 AM CDT Office Visit [facility] Oncology and Hematology - Farz[place] [address] [facility] [address] [place] [address] Michele Smith MD 2227 [facility] [address] [place] [address] documented as of this encounter Visit Diagnoses Not on filedocumented in this encounter Care Teams Corporate Tax Preparer Relationship Specialty Start Date End Date Roxanna Acosta MD PCP - General Family Practice 02/19/12 documented as of this encounter
--- OUTSIDE RECORDS SUMMARY | 2024-08-26 13:06 | XMS_ITS | Encounter Summary ---
Author Organization [facility] Address [address] [place] [address] Care Team Providers Care Acid Washer Operator Name Role Phone Roxanna Acosta MD Primary Care Provider Encounter Details Date Type Department Care Team (Late Contact Info) Description 06/14/2002 Outpatient Historical [facility]) [address] 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 Gender Identity Not on file Sexual Orientation Not on file documented as of this encounter Plan of Treatment Upcoming Encounters Date Type Department Care Team ([facility] Contact Info) Description 10/27/2024 10:00 AM CDT Office Visit [facility] Oncology and Hematology - Farzad [address] [facility] [address] [place] [address] Michele Smith MD 2227 [facility] [address] [place] [address] documented as of this encounter Visit Diagnoses Not on filedocumented in this encounter Care Teams Acid Washer Operator Relationship Specialty Start Date End Date Roxanna Acosta MD PCP - General Family Practice 02/19/12 documented as of this encounter
== END 2024-08-23 11:51 | disposition home or self-care (01) ==
LOC: ANHLAB 11:51
PROVIDERS: Visit Provider Internal Medicine Hematology & Oncology
DX: D50.0 Iron deficiency anemia secondary to blood loss (chronic) (principal)
CPT/HCPCS: 36415; 82728; 83540; 83550; 85027

== ENCOUNTER 2024-09-07 09:03 | Outpatient (CLI) | payer OTHER, SELFPAY ==
[2024-09-07 09:16] LABS: Hematocrit 28.5 % (37.0-47.0); Hemoglobin 8.5 g/dL (12.0-15.0); Mean Corpuscular HGB Conc 29.8 g/dl (32-36); Mean Corpuscular Hemoglobin 25.2 pg (26-34); Mean Corpuscular Volume 84.6 fl (80-100); Mean Platelet Volume 10.3 fl (7.4-10.4); Platelet Count Result 238 k/mm3 (150-375); Red Blood Count 3.37 M/mm3 (4.2-5.4); White Blood Count 3.8 K/mm3 (4.5-10.0)
--- OUTSIDE RECORDS SUMMARY | 2024-09-07 09:29 | XMS_ITS | Encounter Summary ---
Author Organization [facility] Address [address] [place] [address] Care Team Providers Care Tube Drawing Supervisor Name Role Phone Roxanna Acosta MD Primary Care Provider [phone] Encounter Details Date Type Department Care Team (Latest Contact Info) Description 01/05/2009 Outpatient Historical [facility], [address] Enrique Mckinney MD [address] [place] [address] Routine Gynecological Examination Social History Tobacco Use Types Packs/Day Years Used Date Smoking Tobacco: Never Alcohol Use Standard Drinks/Week Comments No 0 (1 standard drink = 0.6 oz pur e alcohol) Comments No Sex and Gender Information Value Date Recorded Sex Assigned at Not on file 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 Sex Female 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 Gender Identity Not on file Sexual Orientation Not on file documented as of this encounter Plan of Treatment Upcoming Encounters Date Type Department Care Team (Late st Contact Info) Description 10/27/2024 10:00 AM CDT Office Visit [facility] Oncology and Hematology - [place] [address] [facility] [address] [place] [address] Michele Smith MD 2[address] [facility] [address] [place] [address] documented as of this encounter Visit Diagnoses Diagnosis Routine gynecological examination documented in this encounter Care Teams Tube Drawing Supervisor Relationship Specialty Start Date End Date Roxanna Acosta MD PCP - General Family Practice 02/19/12 documented as of this encounter
--- OUTSIDE RECORDS SUMMARY | 2024-09-07 09:30 | XMS_ITS | Encounter Summary ---
Author Organization [facility] Address 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 Gender Identity Not on file Sexual Orientation Not on file documented as of this encounter Plan of Treatment Upcoming Encounters Date Type Department Care Team (Late st Contact Info) Description 10/27/2024 10:00 AM CDT Office Visit [facility] Oncology and Hematology - Farzad 2[address] [facility] [address] [place] [address] Michele Smith MD [address] [facility] [address] [place] [address] documented as of this encounter Visit Diagnoses Not on filedocumented in this encounter Care Teams Branch Lending Officer Relationship Specialty Start Date End Date Roxanna Acosta MD PCP - General Family Practice 02/19/12 documented as of this encounter
--- OUTSIDE RECORDS SUMMARY | 2024-09-07 09:30 | XMS_ITS | Encounter Summary ---
Author Organization [facility] Address 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 Gender Identity Not on file Sexual Orientation Not on file documented as of this encounter Plan of Treatment Upcoming Encounters Date Type Department Care Team (Late st Contact Info) Description 10/27/2024 10:00 AM CDT Office Visit [facility] Oncology and Hematology - Farzad [address] [facility] [address] [place] [address] Michele Smith MD 2[address] [facility] [address] [place] [address] documented as of this encounter Visit Diagnoses Not on filedocumented in this encounter Care Teams Dental Assistant Relationship Specialty Start Date End Date Roxanna Acosta MD PCP - General Family Practice 02/19/12 documented as of this encounter
--- OUTSIDE RECORDS SUMMARY | 2024-09-07 09:30 | XMS_ITS | Encounter Summary ---
Author Organization [facility] Address 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 Gender Identity Not on file Sexual Orientation Not on file documented as of this encounter Plan of Treatment Upcoming Encounters Date Type Department Care Team (Late st Contact Info) Description 10/27/2024 10:00 AM CDT Office Visit [facility] Oncology and Hematology - Farzad 2[address] [facility] [address] [place] [address] Michele Smith MD [address] [facility] [address] [place] [address] documented as of this encounter Visit Diagnoses Not on filedocumented in this encounter Care Teams Roll Over Loader Relationship Specialty Start Date End Date Roxanna Acosta MD PCP - General Family Practice 02/19/12 documented as of this encounter
--- OUTSIDE RECORDS SUMMARY | 2024-09-07 09:30 | XMS_ITS | Encounter Summary ---
Author Organization [facility] Address 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 Gender Identity Not on file Sexual Orientation Not on file documented as of this encounter Plan of Treatment Upcoming Encounters Date Type Department Care Team (Late Contact Info) Description 10/27/2024 10:00 AM CDT Office Visit [facility] Oncology and Hematology - [place] [address] [facility] [address] [place] [address] Michele Smith MD 2[address] [facility] [address] [place] [address] documented as of this encounter Procedures Procedure Name Priority Date/Time Associated Diagnosis Comments URINALYSIS W/REFLEX MICROSCOPIC Stat 10/25/2007 6:26 PM CDT documented in this encounter Results * URINALYSIS (10/25/2007 6:26 PM CDT) WBC UA Invalid Result 0 - 5 [facility] CLARITY UA Invalid Result Clear [facility] PROTEIN UA Invalid Result Negative [facility] EPITHELIAL CELLS, URINE Invalid Result [facility] BILIRUBIN UA Invalid Result Negative [facility] LEUKOCYTE ESTERASE UA Invalid Result Negative [facility] RBC UA Invalid Result 0 - 4 /HPF [facility] SPECIFIC GRAVITY UA Invalid Result 1.001 - 1.035 [facility] GLUCOSE UA Invalid Result Negative [facility] BLOOD UA Invalid Result Negative [facility] TRANSITIONAL EPI Invalid Result [facility] COLOR UA Invalid Result [facility] Comment: Lab was notified by Laura 10/25/07 7:35 PM that specimen was mislabeled. ??Patient's account has been credited. NITRITE UA Invalid Result Negative [facility] UROBILINOGEN UA Invalid Result <1 [facility] BACTERIA UA Invalid Result None Seen [facility] PH UA Invalid Result 5.0 - 8.0 [facility] KETONES UA Invalid Result Negative [facility] 10/25/2007 6:26 PM CDT 10/25/2007 6:30 PM CDT us Enrique Mckinney MD URINE ORDERABLES Edited [facility] [address] [place] [address] documented in this encounter Visit Diagnoses Diagnosis Normal delivery documented in this encounter Care Teams Software Recruiter Relationship Specialty Start Date End Date Roxanna Acosta MD PCP - General Family Practice 02/19/12 documented as of this encounter
--- OUTSIDE RECORDS SUMMARY | 2024-09-07 09:30 | XMS_ITS | Encounter Summary ---
Author Organization [facility] Address [address] [place] [address] Care Team Providers Care Mannequin Coloring Artist Name Role Phone Roxanna Acosta MD Primary Care Provider Encounter Details Date Type Department Care Team (Late Contact Info) Description 02/17/2004 Outpatient Historical [facility] Barak Greenberg MD [address] [facility] [address] [place] [address] ABDOMINAL PAIN LUQ (Primary Dx) Social History Tobacco Use Types Packs/Day Years Used Date Smoking Tobacco: Never Assessed Comments Unknown Sex and Gender Information Value Date Recorded Sex Assigned at Not on file Legal Sex Female 4:02 AM HAT MENDER Gender Identity Not on file Sexual Orientation Not on file documented as of this encounter Plan of Treatment Upcoming Encounters Date Type Department Care Team (Late Contact Info) Description 10/27/2024 10:00 AM CDT Office Visit [facility] Oncology and Hematology - [place] 2[address] [facility] 200 [place] [address] Michele Smith MD 2[address] [facility] [address] [place] [address] documented as of this encounter Visit Diagnoses Diagnosis Abdominal pain, left upper quadrant- Primary documented in this encounter Care Teams Mannequin Coloring Artist Relationship Specialty Start Date End Date Roxanna Acosta MD PCP - General Family Practice 02/19/12 documented as of this encounter
--- OUTSIDE RECORDS SUMMARY | 2024-09-07 09:30 | XMS_ITS | Encounter Summary ---
Author Organization [facility] Address 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 Gender Identity Not on file Sexual Orientation Not on file documented as of this encounter Plan of Treatment Upcoming Encounters Date Type Department Care Team (Late st Contact Info) Description 10/27/2024 10:00 AM CDT Office Visit [facility] Oncology and Hematology - [place] 2[address] [facility] 200 [place] [address] Michele Smith MD [address] [facility] [address] [place] [address] documented as of this encounter Visit Diagnoses Not on filedocumented in this encounter Care Teams Automotive Leasing Sales Representative Relationship Specialty Start Date End Date Roxanna Acosta MD PCP - General Family Practice 02/19/12 documented as of this encounter
--- OUTSIDE RECORDS SUMMARY | 2024-09-07 09:30 | XMS_ITS | Encounter Summary ---
Author Organization [facility] Address [address] [place] [address] Care Team Providers Care Consolidator Name Role Phone Roxanna Acosta MD Primary Care Provider [phone] Encounter Details Date Type Department Care Team (Late st Contact Info) Description 05/19/2012 Chart Note [facility] [address] [place] [address] Kyleigh Davis, Physical Therapist Social History Tobacco Use Types Packs/Day Years Used Date Smoking Tobacco: Never Smokeless Tobacco: Never Alcohol Use Standard Drinks/Week Comments No 0 (1 standard drink = 0.6 oz pur e alcohol) Comments Unknown Sex and Gender Information Value Date Recorded Sex Assigned at Not on file Legal Sex Female 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 Kyleigh Davis P.T[facility] [address] [place] [address]. [address] [place] [address] documented in this encounter Plan of Treatment Upcoming Encounters Date Type Department Care Team (Late st Contact Info) Description 10/27/2024 10:00 AM CDT Office Visit [facility] Oncology and Hematology - [place] 2[address] [facility] 200 [place] [address] Michele Smith MD 2[address] [facility] [address] [place] [address] documented as of this encounter Visit Diagnoses Not on filedocumented in this encounter Care Teams Consolidator Relationship Specialty Start Date End Date Roxanna Acosta MD PCP - General Family Practice 02/19/12 documented as of this encounter
--- OUTSIDE RECORDS SUMMARY | 2024-09-07 09:30 | XMS_ITS | Encounter Summary ---
Author Organization [facility] Address [address] [place] [address] Care Team Providers Care Humanities Professor Name Role Phone Roxanna Acosta MD Primary Care Provider Encounter Details Date Type Department Care Team (Late Contact Info) Description 02/15/2004 Outpatient Historical [facility] Primary Care - [address] [place] [address] Barak Greenberg MD [address] [facility] [address] [place] [address] Social History Tobacco Use Types Packs/Day Years Used Date Smoking Tobacco: Never Assessed Comments Unknown Sex and Gender Information Value Date Recorded Sex Assigned at Not on file 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 Sex Female 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 CLERK Gender Identity Not on file Sexual Orientation Not on file documented as of this encounter Plan of Treatment Upcoming Encounters Date Type Department Care Team (Late Contact Info) Description 10/27/2024 10:00 AM CDT Office Visit [facility] Oncology and Hematology - [place] [address] [facility] 200 [place] [address] Michele Smith MD 2227 [facility] [address] [place] [address] documented as of this encounter Visit Diagnoses Not on filedocumented in this encounter Care Teams Humanities Professor Relationship Specialty Start Date End Date Roxanna Acosta MD PCP - General Family Practice 02/19/12 documented as of this encounter
--- OUTSIDE RECORDS SUMMARY | 2024-09-07 09:30 | XMS_ITS | Encounter Summary ---
Author Organization [facility] Address 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 Gender Identity Not on file Sexual Orientation Not on file documented as of this encounter Plan of Treatment Upcoming Encounters Date Type Department Care Team (Late st Contact Info) Description 10/27/2024 10:00 AM CDT Office Visit [facility] Oncology and Hematology - [place] 2[address] [facility] 200 [place] [address] Michele Smith MD 2[address] [facility] [address] [place] [address] documented as of this encounter Visit Diagnoses Not on filedocumented in this encounter Care Teams Data Base Administrator Relationship Specialty Start Date End Date Roxanna Acosta MD PCP - General Family Practice 02/19/12 documented as of this encounter
--- OUTSIDE RECORDS SUMMARY | 2024-09-07 09:30 | XMS_ITS | Encounter Summary ---
Author Organization [facility] Address [address] [place] [address] Care Team Providers Care Technical Account Executive Name Role Phone Roxanna Acosta MD Primary [...] on file Legal Sex Female 4:02 AM VACUUM EXTRACTOR OPERATOR Gender Identity Not on file Sexual Orientation Not on file documented as of this encounter Plan of Treatment Upcoming Encounters Date Type Department Care Team (Late st Contact Info) Description 10/27/2024 10:00 AM CDT Office Visit [facility] Oncology and Hematology - [place]zad 2[address] [facility] 200 [place] [address] Michele Smith MD 2[address] [facility] [address] [place] [address] documented as of this encounter Procedures Procedure Name Priority Date/Time Associated Diagnosis Comments CBC WITH DIFFERENTIAL Routine 10/26/2004 11:50 AM VACUUM EXTRACTOR OPERATOR CBC WITH DIFFERENTIAL Routine 10/26/2004 11:50 AM VACUUM EXTRACTOR OPERATOR URINALYSIS W/REFLEX MICROSCOPIC Routine 10/26/2004 11:50 AM VACUUM EXTRACTOR OPERATOR URINALYSIS W/REFLEX MICROSCOPIC Routine 10/26/2004 11:15 AM VACUUM EXTRACTOR OPERATOR documented in this encounter Results * URINALYSIS (10/26/2004 11:50 AM VACUUM EXTRACTOR OPERATOR) COLOR UA Yellow INTERFACE SYSTEM CLARITY UA [...] /HPF INTERFACE SYSTEM 10/26/2004 11:5 0 AM VACUUM EXTRACTOR OPERATOR Freddie Márquez URINE ORDERABLES Final Result Performing Organization Address [facility] Phone Number INTERFACE SYSTEM Refer to clinic/hospital department * (ABNORMAL) CBC WITH DIFFERENTIAL (10/26/2004 11:50 AM VACUUM EXTRACTOR OPERATOR) NEUTROPHILS 74(H) 45 - 70 % INTERFAC [...] K/uL INTERFACE SYSTEM 10/26/2004 11:5 0 AM VACUUM EXTRACTOR OPERATOR Freddie Márquez HEMATOLOGY ORDERABLES Final Resu lt Performing Organization Address [facility] Phone Number INTERFACE SYSTEM Refer to clinic/hospital department * (ABNORMAL) CBC WITH DIFFERENTIAL (10/26/2004 11:50 AM VACUUM EXTRACTOR OPERATOR) WBC 7.6 4.0 - 9.8 K/uL INTERFACE [...] fL INTERFACE SYSTEM 10/26/2004 11:5 0 AM VACUUM EXTRACTOR OPERATOR us Freddie Márquez HEMATOLOGY ORDERABLES Final Resu lt Performing Organization Address [facility] Phone Number INTERFACE SYSTEM Refer to clinic/hospital department * (ABNORMAL) URINALYSIS (10/26/2004 11:15 AM VACUUM EXTRACTOR OPERATOR) COLOR UA Colorless INTERFACE SYSTEM CLARITY UA [...] /HPF INTERFACE SYSTEM 10/26/2004 11:1 5 AM VACUUM EXTRACTOR OPERATOR us Freddie Márquez URINE ORDERABLES Final Result Performing Organization Address [facility] de Phone Number INTERFACE SYSTEM Refer to clinic/hospital department documented in this encounter Visit Diagnoses Diagnosis Other current maternal conditions classifiable elsewhere, antepartum- Primary documented in this encounter Care Teams Technical Account Executive Relationship Specialty Start Date End Date Roxanna Acosta MD PCP - General Family Practice 02/19/12 documented as of this encounter
--- OUTSIDE RECORDS SUMMARY | 2024-09-07 09:30 | XMS_ITS | Encounter Summary ---
Author Organization [facility] Address 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 TECHNICIAN Gender Identity Not on file Sexual Orientation Not on file documented as of this encounter Plan of Treatment Upcoming Encounters Date Type Department Care Team (Late Contact Info) Description 10/27/2024 10:00 AM CDT Office Visit [facility] Oncology and Hematology - [place] 2[address] [facility] 200 [place] [address] Michele Smith MD 2[address] [facility] [address] [place] [address] documented as of this encounter Visit Diagnoses Not on filedocumented in this encounter Care Teams Artist Agent Relationship Specialty Start Date End Date Roxanna Acosta MD PCP - General Family Practice 02/19/12 documented as of this encounter
--- OUTSIDE RECORDS SUMMARY | 2024-09-07 09:30 | XMS_ITS | Encounter Summary ---
Author Organization [facility] Address [address] [place] [address] Care Team Providers Care Manager Regional Name Role Phone Roxanna Acosta MD Primary Care Provider Encounter Details Date Type Department Care Team (Late Contact Info) Description 11/03/2006 Outpatient Historical [facility] Primary Care - [address] [place] [address] Barak Greenberg MD [address] [facility] [address] [place], [place] [address] Social History Tobacco Use Types Packs/Day Years Used Date Smoking Tobacco: Never Assessed Comments Unknown Sex and Gender Information Value Date Recorded Sex Assigned at Not on file Legal Sex Female 4:02 AM NOUGAT CANDY MAKER HELPER Gender Identity Not on file Sexual [...] Center Oncology and Hematology - [place] [address] [facility] [address] [place] [address] Michele Smith MD 2227 [facility] [address] [place] [address] documented as of this encounter Visit Diagnoses Not on filedocumented in this encounter Care Teams Manager Regional Relationship Specialty Start Date End Date Roxanna Acosta MD PCP - General Family Practice 02/19/12 documented as of this encounter
--- OUTSIDE RECORDS SUMMARY | 2024-09-07 09:30 | XMS_ITS | Clinical Summary ---
Author Organization [facility] Address [address] [place] [address] Phone Care Team Providers Care Community Fundraiser Name Role Phone Roxanna Acosta MD Primary [...] Encounters Date Type Department Care Team Description 09/01/2024 External Device Data STL ABSTRACTION Provider, Abstract 08/26/2024 External Device Data STL ABSTRACTION Provider, Abstract 08/24/2024 4:30 PM WINDOWS PHONE DEVELOPER Telephone Check Up [facility] Oncology and Hematology [facility] [address] [place] [address] Michele Smith MD 08/24/2024 Orders Only [facility] Oncology and Hematology [facility] [address] [place] [address] Michele Smith MD 08/17/2024 External Device Data [...] on file Legal Sex Female 4:02 AM WINDOWS PHONE DEVELOPER Gender Identity Not on file Sexual Orientation [...] AM CDT Office Visit [facility] Oncology and Hematology [facility] [address] [place] [address] [facility] 200 [place] [address] Michele Smith MD [address] [facility] [address] [place] [address] Health Maintenance Due Date Last [...] Comments IRON LEVEL Routine 08/23/2024 2:37 PM WINDOWS PHONE DEVELOPER CERV/VAG CYTO AGE BASED SCREEN PAP Routine 11/10/2020 1:42 PM CDT Well woman exam with routine gynecological exam from Last 3 Months or Most Recently Relevant to Health Maintenance Results * IRON LEVEL (08/23/2024 2:37 PM WINDOWS PHONE DEVELOPER) Blood us Michele Smith MD CHEMISTRY ORDERABLES Final Resu lt * CERV/VAG CYTO AGE BASED SCREEN PAP (11/10/2020 1:42 PM CDT) COMMENT (PAP): SEE COMMENT 2:34 PM CDT [facility] Comment: This order for age-based cervical cancer and STI screening follows ACOG guidelines(PB 168, 140, PDF879). See individual assays for performing site location. [...] 2:34 PM CDT [facility] SOFTWARE PROJECT ENGINEER: SEE COMMENT 2020 2:34 PM CDT [facility] Comment: ASHLEY, CT(ASCP) CT Screening location: [facility] Administration JUANY Bowser [facility] REVIEW SOFTWARE PROJECT ENGINEER: SEE COMMENT 11/16/2020 2:34 PM CDT [facility] Comment: KMS, CT(ASCP) CT Screening location: [place] [address] Administration [place]ser [address] EXPLANATORY NOTE SEE COMMENT 021 2:34 PM CDT [facility] Comment: EXPLANATORY NOTE: The Pap is a [...] Detected Not Detected 11/16/2020 2:34 PM CDT [facility] Comment: Methodology: Cask Maker-Mediated Amplification This assay detects E6/E7 viral messenger RNA (mRNA) from 14 high-risk HPV types (16,18,31,33,35,39,45,51,52,56,58,59,66,68). The analytical performance characteristics of this assay have been determined by [employer]. The modifications have not been cleared or approved by the FDA. This assay has been validated pursuant to the CLIA regulations and is used for clinical purposes. For additional information, please refer to http://education.Pervacio/faq/YVF184n3 (This link if provided for information/ educational purposes only.) Genital SWAB OF ENDOCERVIX / Unknown Collection / Unknown 11/10/2020 1:42 PM CDT 11/10/2020 9:41 PM CDT Narrative [facility] - 11/16/2020 2:34 PM CDT Performing Organization Information: ?Site ID: [place] ?[facility] ?Address: [address] [address] ?Director: Robby Steven D.O., MPH ?Site ID: ?Name: [facility] ?Address: [address] [address] ?Director: Parth Herrera Enrique Mckinney MD PATHOLOGY/CYTOLOGY ORDERABLES Final Result [facility] [phone] from Last 3 Months or Most Recently Relevant to Health Maintenance Insurance Advance Directives For more information, please contact: [phone] * Full Code (Latest Code Status on [...] 11:26 PM 08/16/2009 7:12 AM Care Teams Community Fundraiser Relationship Specialty Start Date End Date Roxanna Acosta MD PCP - General Family Practice 02/19/12
--- OUTSIDE RECORDS SUMMARY | 2024-09-07 09:30 | XMS_ITS | Encounter Summary ---
Author Organization [facility] Address [address] [place] [address] Care Team Providers Care Supervisor Wool Shearing Name Role Phone Roxanna Acosta MD Primary [...] on file Legal Sex Female 4:02 AM DENTISTRY PROFESSOR Gender Identity Not on file Sexual Orientation Not on file documented as of this encounter Plan of Treatment Upcoming Encounters Date Type Department Care Team (Late st Contact Info) Description 10/27/2024 10:00 AM CDT Office Visit [facility] Oncology and Hematology - [place] [address] [facility] [address] [place] [address] Michele Smith MD 2[address] [facility] [address] [place] [address] documented as of this encounter Visit Diagnoses Diagnosis Other current maternal conditions classifiable elsewhere, antepartum- Primary documented in this encounter Care Teams Supervisor Wool Shearing Relationship Specialty Start Date End Date Roxanna Acosta MD PCP - General Family Practice 02/19/12 documented as of this encounter
--- OUTSIDE RECORDS SUMMARY | 2024-09-07 09:30 | XMS_ITS | Encounter Summary ---
Author Organization [facility] Address [address] [place] [address] Care Team Providers Care Checker Product Design Name Role Phone Roxanna Acosta MD Primary Care Provider Encounter Details Date Type Department Care Team (Late st Contact Info) Description 05/01/2006 Orders Only [facility] Primary Care - [facility] [address] [place] [address] [address] [place] [address] Barak Greenberg MD [address] [facility] [address] [place] [address] Social History Tobacco Use Types Packs/Day Years Used Date Smoking Tobacco: Never Assessed Comments Unknown Sex and Gender Information Value Date Recorded Sex Assigned at Not on file 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 [address] [place] [address] Michele Smith MD 2[address] [facility] [address] [place] [address] documented as of this encounter Visit Diagnoses Not on filedocumented in this encounter Care Teams Checker Product Design Relationship Specialty Start Date End Date Roxanna Acosta MD PCP - General Family Practice 02/19/12 documented as of this encounter
--- OUTSIDE RECORDS SUMMARY | 2024-09-07 09:30 | XMS_ITS | Clinical Summary ---
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
--- OUTSIDE RECORDS SUMMARY | 2024-09-07 09:30 | XMS_ITS | Referral Summary ---
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
--- OUTSIDE RECORDS SUMMARY | 2024-09-07 09:30 | XMS_ITS | Encounter Summary ---
Author Organization [facility] Address 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 MEDICINE PHYSICIAN Gender Identity Not on file Sexual Orientation Not on file documented as of this encounter Plan of Treatment Upcoming Encounters Date Type Department Care Team (Late st Contact Info) Description 10/27/2024 10:00 AM CDT Office Visit [facility] Oncology and Hematology - [place] [address] [facility] [address] [place] [address] Michele Smith MD [address] [facility] [address] [place] [address] documented as of this encounter Visit Diagnoses Diagnosis First-degree perineal laceration, with delivery- Primary documented in this encounter Care Teams Senior Net Programmer Relationship Specialty Start Date End Date Roxanna Acosta MD PCP - General Family Practice 02/19/12 documented as of this encounter
--- OUTSIDE RECORDS SUMMARY | 2024-09-07 09:30 | XMS_ITS | Encounter Summary ---
Author Organization [facility] Address 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 [address] [place] [address] documented as of this encounter Visit Diagnoses Not on filedocumented in this encounter Care Teams Meat Apprentice Relationship Specialty Start Date End Date Roxanna Acosta MD PCP - General Family Practice 02/19/12 documented as of this encounter
--- OUTSIDE RECORDS SUMMARY | 2024-09-07 09:30 | XMS_ITS | Encounter Summary ---
Author Organization [facility] Address [address] [place] [address] Care Team Providers Care Induction Heating Equipment Setter Name Role Phone Roxanna Acosta MD Primary Care Provider [phone] Encounter Details Date Type Department Care Team (Late Contact Info) Description 05/01/2006 Outpatient Historical [facility] Primary Care - [address] [place] [address] Barak Greenberg MD [address] [facility] [address] [place], [place] [address] Social History Tobacco Use Types Packs/Day Years Used Date Smoking Tobacco: Never Assessed Comments Unknown Sex and Gender Information Value Date Recorded Sex Assigned at Not on file 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
--- OUTSIDE RECORDS SUMMARY | 2024-09-07 09:30 | XMS_ITS | Encounter Summary ---
Author Organization [facility] Address [address] [place] [address] Care Team Providers Care Supervisor Typesetting Name Role Phone Roxanna Acosta MD Primary Care Provider Encounter Details Date Type Department Care Team (Late st Contact Info) Description 12/09/2005 Orders Only [facility] Primary Care - [address] [place] [address] Barak Greenberg MD [address] [facility] [address] [place] [address] Social History Tobacco Use Types Packs/Day Years Used Date Smoking Tobacco: Never Assessed Comments Unknown Sex and Gender Information Value Date Recorded Sex Assigned at Not on file Legal Sex Female 4:02 AM COORDINATOR OF GENETIC SERVICES Gender Identity Not on file Sexual Orientation Not on file documented as of this encounter Progress Notes * Barak Greenberg MD - 05/13/2008 4:06 AM CDT TIME:09:47 am PATIENT`S HOME PHONE: PATIENT`S WORK PHONE: PATIENT`S INSURANCE: [employer] WHO TOOK THE CALL: [place] GENERAL INFORMATION PATIENT STATUS: Established Patient. LAST VISIT: 02-15-04 PCP: rian. ALTERNATIVE PHONE NUMBER: [phone] WHO CALLED: Patient called. CURRENT ALLERGY LIST: [facility] NUMBER: [phone] PROBLEMS: pt daughter had a staph infection [...] SPECIALTY REFERRAL: PODIATRY Dr. Mendez Panda ph: [phone] fax: [phone]. Electronically Signed by: Barak Greenberg MD on Friday, December 09, 2005 documented in this encounter Plan of Treatment Upcoming Encounters Date Type Department Care Team (Late st Contact Info) Description 10/27/2024 10:00 AM CDT Office Visit [facility] Oncology and Hematology [facility] [address] [facility] 200 [place] [address] Michele Smith MD 2[address] [facility] [address] [place] [address] documented as of this encounter Visit Diagnoses Not on filedocumented in this encounter Care Teams Supervisor Typesetting Relationship Specialty Start Date End Date Roxanna Acosta MD PCP - General Family Practice 02/19/12 documented as of this encounter
--- OUTSIDE RECORDS SUMMARY | 2024-09-07 09:30 | XMS_ITS | Encounter Summary ---
Author Organization [facility] Address [address] [place] [address] Care Team Providers Care Polisher Hand Name Role Phone Roxanna Acosta MD Primary Care Provider [phone] Encounter Details Date Type Department Care Team (Latest Contact Info) Description 10/07/2005 Outpatient Historical [facility] Cecil Schofield MD [address] [facility] [address] [place] [phone] Kelechi Dixon MD NO ADDRESS ON FILE Other Specified Complication, Antepartum (Primary Dx) Social History Tobacco Use Types Packs/Day Years Used Date Smoking Tobacco: Never Assessed Comments Unknown Sex and Gender Information Value Date Recorded Sex Assigned at Not on file Legal Sex Female 4:02 AM PRESS SHOP SUPERVISOR Gender Identity Not on file Sexual Orientation Not on file documented as of this encounter Plan of Treatment Upcoming Encounters Date Type Department Care Team (Late st Contact Info) Description 10/27/2024 10:00 AM CDT Office Visit [facility] Oncology and Hematology - Farzad [address] [facility] [address] [place] [address] Michele Smith MD [address] [facility] [address] [place] [address] documented as of this encounter Procedures Procedure Name Priority Date/Time Associated Diagnosis Comments CBC WITH DIFFERENTIAL Routine 10/07/2005 2:54 PM PRESS SHOP SUPERVISOR CBC WITH DIFFERENTIAL Routine 10/07/2005 2:54 PM PRESS SHOP SUPERVISOR documented in this encounter Results * (ABNORMAL) CBC WITH DIFFERENTIAL (10/07/2005 2:54 PM PRESS SHOP SUPERVISOR) NEUTROPHILS 72(H) 45 - 70 % INTERFAC [...] 0.20 K/uL INTERFACE SYSTEM 10/07/2005 2:54 PM PRESS SHOP SUPERVISOR Kelechi Dixon MD HEMATOLOGY ORDERABLES Final Result INTERFACE SYSTEM Refer to clinic/hospital department * (ABNORMAL) CBC WITH DIFFERENTIAL (10/07/2005 2:54 PM PRESS SHOP SUPERVISOR) Pathologist [facility] WBC 8.9 4.0 - 9.8 K/uL [...] 12.4 fL INTERFACE SYSTEM 10/07/2005 2:54 PM PRESS SHOP SUPERVISOR us Kelechi Dixon MD HEMATOLOGY ORDERABLES Final Result INTERFACE SYSTEM Refer to clinic/hospital department documented in this encounter Visit Diagnoses Diagnosis Other specified complication, antepartum(646.83)- Primary Other specified complication, antepartum documented in this encounter Care Teams Polisher Hand Relationship Specialty Start Date End Date Roxanna Acosta MD PCP - General Family Practice 02/19/12 documented as of this encounter
--- OUTSIDE RECORDS SUMMARY | 2024-09-07 09:30 | XMS_ITS | Encounter Summary ---
Author Organization [facility] Address [address] [place] [address] Care Team Providers Care Technology Manager Name Role Phone Roxanna Acosta MD Primary Care Provider [phone] Encounter Details Date Type Department Care Team [...] on file Legal Sex Female 4:02 AM BACK SHOE CUTTER Gender Identity Not on file Sexual Orientation Not on file documented as of this encounter Plan of Treatment Upcoming Encounters Date Type Department Care Team (Late st Contact Info) Description 10/27/2024 10:00 AM CDT Office Visit [facility] Oncology and Hematology - Farzad [address] [facility] 200 [place] [address] Michele Smith MD [address] [facility] [address] [place] [address] documented as of this encounter Visit Diagnoses Diagnosis Second-degree perineal laceration, with delivery- Primary documented in this encounter Care Teams Technology Manager Relationship Specialty Start Date End Date Roxanna Acosta MD PCP - General Family Practice 02/19/12 documented as of this encounter
--- OUTSIDE RECORDS SUMMARY | 2024-09-07 09:30 | XMS_ITS | Encounter Summary ---
Author Organization [facility] Address [address] [place] [address] Care Team Providers Care Inspector Crystal Name Role Phone Roxanna Acosta MD Primary Care Provider [phone] Encounter Details Date Type Department Care Team (Late st Contact Info) Description 11/27/2006 Orders Only [facility] Primary Care - [address] [place] [address] Barak Greenberg MD [address] [facility] [address] [place] [address] Social History Tobacco Use Types Packs/Day Years Used Date Smoking Tobacco: Never Assessed Comments Unknown Sex and Gender Information Value Date Recorded Sex Assigned at Not on file Legal Sex Female 4:02 AM CS ASSOCIATE Gender Identity Not on file Sexual Orientation Not on file documented as of this encounter Progress Notes * Barak Greenberg MD - 12/24/2007 5:19 PM CDT TIME:02:18 pm PATIENT`S HOME PHONE: PATIENT`S WORK PHONE: PATIENT`S INSURANCE: [employer] [facility] WHO TOOK THE CALL: Arabella Davila A GENERAL INFORMATION PATIENT STATUS: Established Patient. LAST VISIT: 11-03-06 PCP: keon. ALTERNATIVE PHONE NUMBER: [phone] WHO CALLED: Patient called. CURRENT ALLERGY LIST: [facility] NUMBER: [phone] PROBLEMS: pt had miscarriage 09/10 got again [...] Fills, status: DISCONTINUED, 11/27/2006, Comment: called to [phone]...sylwia. LEXAPRO ORAL TABLET 10 MG, 1 Every [...] Oncology and Hematology - Farzad [address] [facility] 200 [place] [address] Michele Smith MD [address] [facility] [address] [place] [address] documented as of this encounter Visit Diagnoses Not on filedocumented in this encounter Care Teams Inspector Crystal Relationship Specialty Start Date End Date Roxanna Acosta MD PCP - General Family Practice 02/19/12 documented as of this encounter
--- OUTSIDE RECORDS SUMMARY | 2024-09-07 09:31 | XMS_ITS | Encounter Summary ---
Author Organization [facility] Address [address] [place] [address] Care Team Providers Care A Class Lineman Name Role Phone Roxanna Acosta MD Primary Care Provider Encounter Details Date Type Department Care Team (Late Contact Info) Description 07/20/2007 Outpatient Historical [facility] Maternal and Ground [facility] [address] [place] [address] Naveed Means MD [address] [facility] [address] [place] [address] Social History Tobacco Use Types [...] Description 10/27/2024 10:00 AM CDT Office Visit [facility] Oncology and Hematology - Farzad [address] [place] [address] Michele Smith MD [address] [facility] [address] [place] [address] documented as of this encounter Visit Diagnoses Not on filedocumented in this encounter Care Teams A Class Lineman Relationship Specialty Start Date End Date Roxanna Acosta MD PCP - General Family Practice 02/19/12 documented as of this encounter
--- OUTSIDE RECORDS SUMMARY | 2024-09-07 09:31 | XMS_ITS | Referral Summary ---
Author Organization [facility] Address [address] [place] [address] Care Team Providers Care Veneer Jointer Returner Name Role Phone Tracey Patel MD Primary Care Provider [phone] Source Comments [facility],non-owned Affiliates and Associated Physician Practices is amultiple site organization consisting of ambulatory clinics and hospital sitesin [place], [place], [place] and [place]. This disclosure is being madepursuant to the Care Everywhere program and may not contain all information available regarding this patient. Last updated 18.[facility] Allergies No known active allergies Medications * [...] MAMMO BILAT DIAGNOSTIC Routine 07/17/2017 10:10 AM MOLD PREPARER Left breast lump PAP IG LB +HPV APTIMA REFLEX 16,18/45 Routine 07/09/2017 3:07 PM MOLD PREPARER Well woman exam with routine gynecological exam Screening for HPV (human papillomavirus) COMPREHENSIVE METABOLIC PANEL Routine 06/17/2017 10:22 AM MOLD PREPARER Annual physical exam LIPID PROFILE W TCHOL/HDL Routine 06/17/2017 10:22 AM MOLD PREPARER Annual physical exam from Last 3 Months or Most Recently Relevant to Health Maintenance Results * MAMMO DIAG DIRECT DIGITAL IMAGE BILA [id number] (07/17/2017 10:10 AM MOLD PREPARER) Anatomical Region Laterality Modality Bilateral Mammography 07/17/2017 11:1 7 AM MOLD PREPARER Narrative 07/17/2017 11:24 AM MOLD PREPARER DIGITAL BILATERAL DIAGNOSTIC MAMMOGRAMS WITH CAD CORRELATION [...] if suspicious findings are present clinically. An [employer] Certified Facility. [facility] utilize [employer] as a reminder system to notify patients of their next recommended mammogram. Edited by Jennifer [place] on 07/17/2017 11:23 AM Joyce Saldivar MD MAMMO ORDERABLES * (ABNORMAL) PAP IG LB +HPV APTIMA REFLEX 16,18/45 (07/09/2017 3:07 PM MOLD PREPARER) Diagnosis (A) [facility] ACCOUNT BILL Comment: EPITHELIAL [...] UTERINE CERVIX / Unknown 07/09/2017 3:07 PM MOLD PREPARER 07/09/2017 Narrative [facility] ACCOUNT BILL - 07/15/2017 5:10 PM MOLD PREPARER Source.............Cervix LMP / Prev Treat...TCY=[id number] No. of containers..01 ThinPrep Vial Resulting Agency Comment [facility] [address] [facility] ??Jason AguiarVannesa [phone] Joyce Saldivar MD LAB - PATHOLOGY/CYTO LOGY ORDERABLES [facility] ACCOUNT BILL [address] [place] [address] * LIPID PROFILE W TCHOL/HDL (06/17/2017 10:22 AM MOLD PREPARER) Cholesterol 185 <200 mg/dL [facility] ACCOUNT BILL [...] BLOOD SPECIMEN / Unknown 06/17/2017 10:22 AM MOLD PREPARER 06/17/2017 Narrative Resulting Agency Comment [facility] Health [facility] [address] [address] ??[place] [id number] Tracey Patel MD LAB - CHEMISTRY ORDE RABLES [facility] ACCOUNT BILL [address] [place] [address] * (ABNORMAL) COMPREHENSIVE METABOLIC PANEL (06/17/2017 10:22 AM MOLD PREPARER) Glucose 79 74 - 106 mg/dL [facility] [...] BLOOD SPECIMEN / Unknown 06/17/2017 10:22 AM MOLD PREPARER 06/17/2017 Narrative Resulting Agency Comment [facility] Health [facility] [address] [address] ??[place] [phone] Tracey Patel MD LAB - CHEMISTRY LEXX RAMIREZ [facility] ACCOUNT BILL [address] [place] [address] from Last 3 Months or Most Recently Relevant to Health Maintenance Care Teams Veneer Jointer Returner Relationship Specialty Start Date End Date Tracey Patel MD PCP - General Family Medicine 06/13/17
--- OUTSIDE RECORDS SUMMARY | 2024-09-07 09:31 | XMS_ITS | Encounter Summary ---
Author Organization [facility] Address [address] [place] [address] Care Team Providers Care Hot Mill Supervisor Name Role Phone Roxanna Acosta MD Primary Care Provider [phone] Encounter Details Date Type Department Care Team (Late st Contact Info) Description 11/19/2002 Outpatient Historical [facility] Primary Care - [address] [place] [address] Otf Talavera Social History Tobacco Use Types Packs/Day Years Used Date Smoking Tobacco: Never Assessed Comments Unknown Sex and Gender Information Value Date Recorded Sex Assigned at Not on file Legal Sex Female 4:02 AM PUMP ERECTOR Gender Identity Not on file Sexual Orientation Not on file documented as of this encounter Plan of Treatment Upcoming Encounters Date Type Department Care Team (Late st Contact Info) Description 10/27/2024 10:00 AM CDT Office Visit [facility] Oncology and Hematology - Farzad [address] [facility] [address] [place] [address] Michele Smith MD [address] [facility] [address] [place] [address] documented as of this encounter Visit Diagnoses Not on filedocumented in this encounter Care Teams Hot Mill Supervisor Relationship Specialty Start Date End Date Roxanna Acosta MD PCP - General Family Practice 02/19/12 documented as of this encounter
--- OUTSIDE RECORDS SUMMARY | 2024-09-07 09:31 | XMS_ITS | Encounter Summary ---
Author Organization [facility] Address [address] [place] [address] Care Team Providers Care Automatic Machines Supervisor Name Role Phone Roxanna Acosta MD Primary Care Provider [phone] Encounter Details Date Type Department Care Team (Late Contact Info) Description 07/15/2007 Outpatient Historical [facility] COOK HELPER - [address] [place] [address] Enrique Mckinney MD [address] [facility] [address] [place] [address] Social History Tobacco Use Types Packs/Day Years Used Date Smoking Tobacco: Never Assessed Comments Unknown Sex and Gender Information Value Date Recorded Sex Assigned at Not on file Legal Sex Female 4:02 AM MONITOR TECHNICIAN Gender Identity Not on file Sexual Orientation Not on file documented as of this encounter Plan of Treatment Upcoming Encounters Date Type Department Care Team (Late st Contact Info) Description 10/27/2024 10:00 AM CDT Office Visit [facility] Oncology and Hematology - Farzad [address] [facility] 200 [place] [address] Michele Smith MD [address] [facility] [address] [place] [address] documented as of this encounter Visit Diagnoses Not on filedocumented in this encounter Care Teams Automatic Machines Supervisor Relationship Specialty Start Date End Date Roxanna Acosta MD PCP - General Family Practice 02/19/12 documented as of this encounter
--- OUTSIDE RECORDS SUMMARY | 2024-09-07 09:31 | XMS_ITS | Encounter Summary ---
Author Organization [facility] Address [address] [place] [address] Care Team Providers Care Blending Machine Feeder Name Role Phone Roxanna Acosta MD Primary Care Provider Encounter Details Date Type Department Care Team (Late st Contact Info) Description 12/29/2002 Outpatient Historical [facility] Primary Care - [address] [place] [address] Otf Talavera Social History Tobacco Use Types Packs/Day Years Used Date Smoking Tobacco: Never Assessed Comments Unknown Sex and Gender Information Value Date Recorded Sex Assigned at Not on file Legal Sex Female 4:[address]ACHINERY INSPECTOR Gender Identity Not on file Sexual Orientation Not on file documented as of this encounter Plan of Treatment Upcoming Encounters Date Type Department Care Team (Late st Contact Info) Description 10/27/2024 10:00 AM CDT Office Visit [facility] Oncology and Hematology - Farzad [address] [facility] 200 [place] [address] Michele Smith MD [address] [facility] [address] [place] [address] documented as of this encounter Visit Diagnoses Not on filedocumented in this encounter Care Teams Blending Machine Feeder Relationship Specialty Start Date End Date Roxanna Acosta MD PCP - General Family Practice 02/19/12 documented as of this encounter
--- OUTSIDE RECORDS SUMMARY | 2024-09-07 09:31 | XMS_ITS | Encounter Summary ---
Author Organization [facility] Address [address] [place] [address] Care Team Providers Care Headmaster/Mistress Name Role Phone Roxanna Acosta MD Primary Care Provider [phone] Encounter Details Date Type Department Care Team (Late Contact Info) Description 03/27/2007 Outpatient Historical [facility] SENSITIZER - [address] [place] [address] Enrique Mckinney MD 1 [facility] [address] [place] [address] Social History Tobacco Use Types Packs/Day Years Used Date Smoking Tobacco: Never Assessed Comments Unknown Sex and Gender Information Value Date Recorded Sex Assigned at Not on file Legal Sex Female 4:02 AM ROSIN BARREL FILLER Gender Identity Not on file Sexual Orientation Not on file documented as of this encounter Plan of Treatment Upcoming Encounters Date Type Department Care Team (Late st Contact Info) Description 10/27/2024 10:00 AM CDT Office Visit [facility] Oncology and Hematology - Far[place] [address] [facility] 200 [place] [address] Michele Smith MD 2227 [facility] [address] [place] [address] documented as of this encounter Visit Diagnoses Not on filedocumented in this encounter Care Teams Headmaster/Mistress Relationship Specialty Start Date End Date Roxanna Acosta MD PCP - General Family Practice 02/19/12 documented as of this encounter
--- OUTSIDE RECORDS SUMMARY | 2024-09-07 09:31 | XMS_ITS | Encounter Summary ---
Author Organization [facility] Address [address] [place] [address] Care Team Providers Care Electrical Engineering Technologist Name Role Phone Roxanna Acosta MD Primary Care Provider Encounter Details Date Type Department Care Team (Late st Contact Info) Description 12/20/2002 Outpatient Historical [facility] Primary Care - [address] [place] [address] Otf Talavera Social History Tobacco Use Types Packs/Day Years Used Date Smoking Tobacco: Never Assessed Comments Unknown Sex and Gender Information Value Date Recorded Sex Assigned at Not on file Legal Sex Female 4:02 AM GIFT PACKER Gender Identity Not on file Sexual Orientation Not on file documented as of this encounter Plan of Treatment Upcoming Encounters Date Type Department Care Team (Late st Contact Info) Description 10/27/2024 10:00 AM CDT Office Visit [facility] Oncology and Hematology - [place] 2227 [facility] 200 [place] [address] Michele Smith MD 2227 [facility] [address] [place] [address] documented as of this encounter Visit Diagnoses Not on filedocumented in this encounter Care Teams Electrical Engineering Technologist Relationship Specialty Start Date End Date Roxanna Acosta MD PCP - General Family Practice 02/19/12 documented as of this encounter
--- OUTSIDE RECORDS SUMMARY | 2024-09-07 09:31 | XMS_ITS | Encounter Summary ---
Author Organization [facility] Address 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 Gender Identity Not on file Sexual Orientation Not on file documented as of this encounter Plan of Treatment Upcoming Encounters Date Type Department Care Team (Late st Contact Info) Description 10/27/2024 10:00 AM CDT Office Visit [facility] Oncology and Hematology - [place] [address] [facility] 200 [place] [address] Michele Smith MD 2227 [facility] [address] [place] [address] documented as of this encounter Visit Diagnoses Not on filedocumented in this encounter Care Teams Commercial Analyst Relationship Specialty Start Date End Date Roxanna Acosta MD PCP - General Family Practice 02/19/12 documented as of this encounter
--- OUTSIDE RECORDS SUMMARY | 2024-09-07 09:31 | XMS_ITS | Encounter Summary ---
Author Organization [facility] Address [address] [place] [address] Care Team Providers Care Quality Assurance Analyst Name Role Phone Tracey Patel MD Primary Care Provider [phone] Tracey Patel MD Unavailable [phone] Encounter Details Date Type Department Care Team (Late st Contact Info) Description 04/16/2018 SS Outpatient Visit EXTERNAL [facility] Tracey Patel MD [address] [place] [address] Social History Tobacco Use Types Packs/Day [...] on filedocumented in this encounter Care Teams Quality Assurance Analyst Relationship Specialty Start Date End Date Tracey Patel MD PCP - General Family Medicine 06/13/17 Tracey Patel MD [address] [place] [address] PCP - Attributed-C Commercial 12/19/18 12/19/18 documented as of this encounter
--- OUTSIDE RECORDS SUMMARY | 2024-09-07 09:31 | XMS_ITS | Encounter Summary ---
Author Organization [facility] Address [address] [place] [address] Care Team Providers Care Cryogenic Transport Driver Name Role Phone Roxanna Acosta MD Primary Care Provider Encounter Details Date Type Department Care Team (Late Contact Info) Description 06/18/2007 Outpatient Historical [facility] INSECT CONTROL AIDE - Medical [address] [address] Enrique Mckinney MD [address] [address] Social History Tobacco Use Types Packs/Day Years Used Date Smoking Tobacco: Never Assessed Comments Unknown Sex and Gender Information Value Date Recorded Sex Assigned at Not on file Legal Sex Female 4:02 AM RESPIRATORY TECH Gender Identity Not on file Sexual Orientation Not on file documented as of this encounter Plan of Treatment Upcoming Encounters Date Type Department Care Team (Late st Contact Info) Description 10/27/2024 10:00 AM CDT Office Visit [facility] Oncology and Hematology - Farzad [address] [facility] 200 [place] [address] Michele Smith MD 2227 [facility] [address] [place] [address] documented as of this encounter Visit Diagnoses Not on filedocumented in this encounter Care Teams Cryogenic Transport Driver Relationship Specialty Start Date End Date Roxanna Acosta MD PCP - General Family Practice 02/19/12 documented as of this encounter
--- OUTSIDE RECORDS SUMMARY | 2024-09-07 09:31 | XMS_ITS | Encounter Summary ---
Author Organization [facility] Address [address] [place] [address] Care Team Providers Care Waredresser Name Role Phone Roxanna Acosta MD Primary Care Provider Encounter Details Date Type Department Care Team (Late Contact Info) Description 07/15/2007 Outpatient Historical [facility] SUPERVISOR MAINSPRING FABRICATION - [address] [place] [address] Enrique Mckinney MD 1 [facility] [address] [place] [address] Social History Tobacco Use Types Packs/Day Years Used Date Smoking Tobacco: Never Assessed Comments Unknown Sex and Gender Information Value Date Recorded Sex Assigned at Not on file 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 Sex Female 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 Gender Identity Not on file Sexual Orientation Not on file documented as of this encounter Plan of Treatment Upcoming Encounters Date Type Department Care Team (Late st Contact Info) Description 10/27/2024 10:00 AM CDT Office Visit [facility] Oncology and Hematology - Farzad [address]anc[address] [facility] 200 [place] [address] Michele Smith MD 2227 [facility] [address] [place] [address] documented as of this encounter Visit Diagnoses Not on filedocumented in this encounter Care Teams Waredresser Relationship Specialty Start Date End Date Roxanna Acosta MD PCP - General Family Practice 02/19/12 documented as of this encounter
--- OUTSIDE RECORDS SUMMARY | 2024-09-07 09:31 | XMS_ITS | Encounter Summary ---
Author Organization [facility] Address [address] [place] [address] Care Team Providers Care Contract Processor Name Role Phone Roxanna Acosta MD Primary Care Provider Encounter Details Date Type Department Care Team (Late Contact Info) Description 09/08/2007 Outpatient Historical [facility] PEER HEALTH PROMOTER - [address] [place] [address] Enrique Mckinney MD 1 [facility] [address] [place] [address] Social History Tobacco Use Types Packs/Day Years Used Date Smoking Tobacco: Never Assessed Comments Unknown Sex and Gender Information Value Date Recorded Sex Assigned at Not on file 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 Female 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 Gender Identity Not on file Sexual Orientation Not on file documented as of this encounter Plan of Treatment Upcoming Encounters Date Type Department Care Team (Late st Contact Info) Description 10/27/2024 10:00 AM CDT Office Visit [facility] Oncology and Hematology - Far[place] [address]anc[address] [facility] 200 [place] [address] Michele Smith MD 2227 [facility] [address] [place] [address] documented as of this encounter Visit Diagnoses Not on filedocumented in this encounter Care Teams Contract Processor Relationship Specialty Start Date End Date Roxanna Acosta MD PCP - General Family Practice 02/19/12 documented as of this encounter
--- OUTSIDE RECORDS SUMMARY | 2024-09-07 09:31 | XMS_ITS | Encounter Summary ---
Author Organization [facility] Address [address] [place] [address] Care Team Providers Care Etl Software Engineer Name Role Phone Roxanna Acosta MD Primary Care Provider Encounter Details Date Type Department Care Team (Late st Contact Info) Description 07/07/2002 Outpatient Historical [facility] Primary Care - [address] [place] [address] Otf Talavera Social History Tobacco Use Types Packs/Day Years Used Date Smoking Tobacco: Never Assessed Comments Unknown Sex and Gender Information Value Date Recorded Sex Assigned at Not on file Legal Sex Female 4:02 AM CORPORATE 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 INTERN Gender Identity Not on file Sexual Orientation Not on file documented as of this encounter Plan of Treatment Upcoming Encounters Date Type Department Care Team (Late Contact Info) Description 10/27/2024 10:00 AM CDT Office Visit [facility] Oncology and Hematology - Farzad 2227 [facility] 200 [place] [address] Michele Smith MD 2227 [facility] [address] [place] [address] documented as of this encounter Visit Diagnoses Not on filedocumented in this encounter Care Teams Etl Software Engineer Relationship Specialty Start Date End Date Roxanna Acosta MD PCP - General Family Practice 02/19/12 documented as of this encounter
--- OUTSIDE RECORDS SUMMARY | 2024-09-07 09:31 | XMS_ITS | Encounter Summary ---
Author Organization [facility] Address 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 Gender Identity Not on file Sexual Orientation Not on file documented as of this encounter Plan of Treatment Upcoming Encounters Date Type Department Care Team (Late st Contact Info) Description 10/27/2024 10:00 AM CDT Office Visit [facility] Oncology and Hematology - Farzad 2227 [facility] 200 [place] [address] Michele Smith MD 2227 [facility] [address] [place] [address] documented as of this encounter Visit Diagnoses Not on filedocumented in this encounter Care Teams Undergraduate Intern Relationship Specialty Start Date End Date Roxanna Acosta MD PCP - General Family Practice 02/19/12 documented as of this encounter
--- OUTSIDE RECORDS SUMMARY | 2024-09-07 09:31 | XMS_ITS | Encounter Summary ---
Author Organization [facility] Address [address] [place] [address] Care Team Providers Care Critical Power Install Technician Name Role Phone Roxanna Acosat MD Primary Care Provider Encounter Details Date Type Department Care Team (Late Contact Info) Description 08/13/2007 Outpatient Historical [facility] PRESSER COTTON GINNING - Medical [address] [address] Enrique Mckinney MD [address] [address] Social History Tobacco Use Types Packs/Day Years Used Date Smoking Tobacco: Never Assessed Comments Unknown Sex and Gender Information Value Date Recorded Sex Assigned at Not on file Legal Sex Female 4:02 AM DATABASE MARKETING ANALYST Gender Identity Not on file Sexual Orientation Not on file documented as of this encounter Plan of Treatment Upcoming Encounters Date Type Department Care Team (Late st Contact Info) Description 10/27/2024 10:00 AM CDT Office Visit [facility] Oncology and Hematology - Farzad [address] Manc[address] [facility] 200 [place] [address] Michele Smith MD 2227 [facility] [address] [place] [address] documented as of this encounter Visit Diagnoses Not on filedocumented in this encounter Care Teams Critical Power Install Technician Relationship Specialty Start Date End Date Roxanna Acosta MD PCP - General Family Practice 02/19/12 documented as of this encounter
--- OUTSIDE RECORDS SUMMARY | 2024-09-07 09:31 | XMS_ITS | Encounter Summary ---
Author Organization [facility] Address 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 Sex Female 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 Gender Identity Not on file Sexual Orientation Not on file documented as of this encounter Plan of Treatment Upcoming Encounters Date Type Department Care Team (Late st Contact Info) Description 10/27/2024 10:00 AM CDT Office Visit [facility] Oncology and Hematology - Farzad [address] Manc[address] [facility] 200 [place] [address] Michele Smith MD 2227 [facility] [address] [place] [address] documented as of this encounter Visit Diagnoses Not on filedocumented in this encounter Care Teams Health Center Associate Relationship Specialty Start Date End Date Roxanna Acotsa MD PCP - General Family Practice 02/19/12 documented as of this encounter
--- OUTSIDE RECORDS SUMMARY | 2024-09-07 09:31 | XMS_ITS | Encounter Summary ---
Author Organization [facility] Address [address] [place] [address] Care Team Providers Care Cardiac Sonographer Name Role Phone Roxanna Acosta MD Primary Care Provider Encounter Details Date Type Department Care Team (Latest Contact Info) Description 05/20/2007 Outpatient Historical [facility] FINISHING ROOM SUPERVISOR - [address] [place] [address] Enrique Mckinney MD 621 [facility] [address] [place] [address] State, Incidental (Primary Dx) Social History Tobacco Use Types Packs/Day Years Used Date Smoking Tobacco: Never Assessed Comments Unknown Sex and Gender Information Value Date Recorded Sex Assigned at Not on file Legal Sex Female 4:02 AM BACON STRINGER Gender Identity Not on file Sexual Orientation Not on file documented as of this encounter Plan of Treatment Upcoming Encounters Date Type Department Care Team (Late st Contact Info) Description 10/27/2024 10:00 AM CDT Office Visit [facility] Oncology and Hematology - Farzad 2[address] Tash[address] Mancini [facility] 200 [place] [address] Michele Smith MD 2227 [facility] [address] [place] [address] documented as of this encounter [...] MD HEMATOLOGY ORDERABLES Edited Performing Organization Address City/[facility] Co de Phone Number INTERFACE [...] MD HEMATOLOGY ORDERABLES Edited Performing Organization Address [facility] Phone Number INTERFACE SYSTEM Refer to clinic/hospital department * HIV ANTIBODY W/REFLX CONFIRMATION (05/20/2007 4:45 PM CDT) HIV-1 AND 2 ABS NON-REACTI VE NON-REACT BREEZY INTERFACE SYSTEM Comment: Effective January 05, 2007, HIV 1/2 Antibody Screen with Reflexed Confirmati on has replaced HIV-1 Antibody Screen. HIV-1 Antibody Screen is no longer offered due to lack of available kits from the sales enablement consultant. A NON-REACTIVE HIV 1/2 ANTIBODY RESULT DOES NOT EXCLUDE HIV INFECTION SINCE THE TIME FRAME FOR SEROCONVERSION IS VARIABLE. IF ACUTE HIV INFECTION IS SUSPECTED, ANTIBODY RETESTING AND NUCLEIC ACID AMPLIFICATION (HIV DNA/RNA) TESTING IS RECOMMENDED. ? Lab test performed by: [facility] [id number] [place] [id number] ALLIE CARDENAS MD 05/20/2007 4:45 PM CDT Enrique Mckinney MD CHEMISTRY ORDERABLES Edited Performing Organization Address [facility] de Phone Number INTERFACE SYSTEM Refer to clinic/hospital department * HEPATITIS B SURFACE ANTIGEN (05/20/2007 4:45 PM CDT) HEPATITIS B SURFACE AG NON-REACTI VE NON-REACT BREEZY INTERFACE SYSTEM Comment: Lab test performed by: [facility] [id number] [facility] [phone] ALLIE CARDENAS MD 05/20/2007 4:45 PM CDT Enrique Mckinney MD CHEMISTRY ORDERABLES Edited Performing Organization Address [facility] de Phone Number INTERFACE SYSTEM Refer [...] RUBELLA VIRUS. ? Lab test performed by: [employer] [id number] [place] [id number] ALLIE CARDENAS MD 05/20/2007 4:45 PM CDT Enrique Mckinney MD CHEMISTRY ORDERABLES Edited INTERFACE SYSTEM Refer to clinic/hospital department * RPR (05/20/2007 4:45 PM CDT) RPR NON-REACTI VE NON-REACT BREEZY INTERFACE SYSTEM Comment: Lab test performed by: [facility] [id number] [place] [address] ALLIE CARDENAS MD 05/20/2007 4:45 PM CDT us Enrique Mckinney MD CHEMISTRY ORDERABLES Edited INTERFACE SYSTEM Refer to clinic/hospital department documented in this encounter Visit Diagnoses Diagnosis state, incidental- Primary documented in this encounter Care Teams Cardiac Sonographer Relationship Specialty Start Date End Date Roxanna Acosta MD PCP - General Family Practice 02/19/12 documented as of this encounter
--- OUTSIDE RECORDS SUMMARY | 2024-09-07 09:31 | XMS_ITS | Encounter Summary ---
Author Organization [facility] Address [address] [place] [address] Care Team Providers Care Associate Dean Of Women Name Role Phone Roxanna Acosta MD Primary Care Provider [phone] Encounter Details Date Type Department Care Team (Latest Contact Info) Description 06/14/2002 Outpatient Historical [facility] CARDIOPULMON[facility] Otf Talavera UNDIAGNOSED CARDIAC MURMURS (Primary Dx) Social History Tobacco Use Types Packs/Day Years Used Date Smoking Tobacco: Never Assessed Comments Unknown Sex and Gender Information Value Date Recorded Sex Assigned at Not on file Legal Sex Female 4:02 AM PUMP ERECTOR HELPER Gender Identity Not on file Sexual Orientation Not on file documented as of this encounter Plan of Treatment Upcoming Encounters Date Type Department Care Team (Late st Contact Info) Description 10/27/2024 10:00 AM CDT Office Visit [facility] Oncology and Hematology - Farzad [address] Tashia Mancini [facility] 200 [place] [address] Michele Smith MD 2227 [facility] [address] [place] [address] documented as of this encounter Visit Diagnoses Diagnosis Undiagnosed cardiac murmurs- Primary documented in this encounter Care Teams Associate Dean Of Women Relationship Specialty Start Date End Date Roxanna Acosta MD PCP - General Family Practice 02/19/12 documented as of this encounter
--- OUTSIDE RECORDS SUMMARY | 2024-09-07 09:31 | XMS_ITS | Encounter Summary ---
Author Organization [facility] Address [address] [place] [address] Care Team Providers Care Outpatient Interviewing Clerk Name Role Phone Roxanna Acosta MD Primary Care Provider Encounter Details Date Type Department Care Team (Late Contact Info) Description 07/29/2007 Outpatient Historical [facility] Enrique Mckinney MD [address] [address] Social History Tobacco Use Types Packs/Day Years Used Date Smoking Tobacco: Never Assessed Comments Unknown Sex and Gender Information Value Date Recorded Sex Assigned at Not on file Legal Sex Female 4:02 AM ANIMAL GROOMER Gender Identity Not on file Sexual Orientation Not on file documented as of this encounter Plan of Treatment Upcoming Encounters Date Type Department Care Team (Late Contact Info) Description 10/27/2024 10:00 AM CDT Office Visit [facility] Oncology and Hematology - [place] 2227 [facility] [address] [place] [address] Michele Smith MD 2227 [facility] [address] [place] [address] documented as of this encounter Procedures Procedure Name Priority Date/Time Associated Diagnosis Comments URINALYSIS WITH REFLEX CULTURE Routine 07/29/2007 12:18 PM ANIMAL GROOMER URINALYSIS W/REFLEX MICROSCOPIC Routine 07/29/2007 12:18 PM ANIMAL GROOMER documented in this encounter Results * URINALYSIS (07/29/2007 12:18 PM ANIMAL GROOMER) COLOR UA Pale Yellow INTERFAC E SYSTEM [...] Negative INTERFACE SYSTEM 07/29/2007 12:1 8 PM ANIMAL GROOMER Enrique Mckinney MD URINE ORDERABLES Edited Performing Organization Address [facility] Phone Number INTERFACE SYSTEM Refer to clinic/hospital department * URINALYSIS WITH REFLEX CULTURE (07/29/2007 12:18 PM ANIMAL GROOMER) URINE CULTURE ORDER Not indicated INTERFACE SYSTEM Comment: Criteria for a reflex culture include one or more of the following: ??Abn ormal nitrite, leukocyte esterase, WBCs or RBCs. ??Lack of qualifying criteria does not exclude the possiblity of a urinary tract infection. ??Dilute urine, drug interference, etc. may decrease the sensitivity of the criteria analytes. 07/29/2007 12:1 8 PM ANIMAL GROOMER Enrique Mckinney MD URINE ORDERABLES Edited Performing Organization Address [facility] Phone Number INTERFACE SYSTEM Refer to clinic/hospital department documented in this encounter Visit Diagnoses Not on filedocumented in this encounter Care Teams Outpatient Interviewing Clerk Relationship Specialty Start Date End Date Roxanna Acosta MD PCP - General Family Practice 02/19/12 documented as of this encounter
--- OUTSIDE RECORDS SUMMARY | 2024-09-07 09:31 | XMS_ITS | Encounter Summary ---
Author Organization [facility] Address [address] [place] [address] Care Team Providers Care Attache Name Role Phone Roxanna Acosta MD Primary Care Provider [phone] Encounter Details Date Type Department Care Team (Latest Contact Info) Description 10/05/2007 Outpatient Historical [facility], [address] Epifanio Jones MD NO ADDRESS ON FILE Supervision of Other Normal Social History Tobacco Use Types Packs/Day Years Used Date Smoking Tobacco: Never Assessed Comments Unknown Sex and Gender Information Value Date Recorded Sex Assigned at Not on file Legal Sex Female 4:02 AM SENIOR DB2 SYSTEMS PROGRAMMER Gender Identity Not on file Sexual Orientation Not on file documented as of this encounter Plan of Treatment Upcoming Encounters Date Type Department Care Team (Late st Contact Info) Description 10/27/2024 10:00 AM CDT Office Visit [facility] Oncology and Hematology - [place] 2227 [facility] [address] [place] [address] Michele Smith MD 2227 [facility] [address] [place] [address] documented as of this encounter Procedures Procedure Name Priority Date/Time Associated Diagnosis Comments (BROTH-ENRICHED) GROUP B STREP DETECTION Routine 10/05/2007 5:22 PM SENIOR DB2 SYSTEMS PROGRAMMER documented in this encounter Results * STREPTOCOCCUS GROUP B CULTURE (10/05/2007 5:22 PM SENIOR DB2 SYSTEMS PROGRAMMER) PRELIMINARY REPORT Pending INTERFACE SYSTEM FINAL REPORT No Streptococcus Group B isolated. INTERFACE SYSTEM Vaginal 10/05/2007 5:22 PM SENIOR DB2 SYSTEMS PROGRAMMER 10/05/2007 5:26 PM SENIOR DB2 SYSTEMS PROGRAMMER us Epifanio Jones MD MICROBIOLOGY - GENERAL ORDERABL ES Final Result INTERFACE SYSTEM Refer to clinic/hospital department documented in this encounter Visit Diagnoses Diagnosis Supervision of other normal documented in this encounter Care Teams Attache Relationship Specialty Start Date End Date Roxanna Acosta MD PCP - General Family Practice 02/19/12 documented as of this encounter
--- OUTSIDE RECORDS SUMMARY | 2024-09-07 09:31 | XMS_ITS | Patient Health Summary ---
Author Organization [facility] Address [address] [place] [address] Care Team Providers Care Recreational Director Name Role Phone Tracey Patel MD Primary Care Provider [phone] Note from [facility],non-owned Affiliates and Associated Physician Practices is amultiple site organization consisting of ambulatory clinics and hospital sitesin [place], [place], [place] and [place]. This disclosure is being madepursuant to the Care Everywhere program and may not contain all information available regarding this patient. Last updated 18.[facility] Allergies No known active allergies Medications * [...] BILL - 02/05/2019 1:06 PM CDT Test(s) [id number] Green Cullen; [id number] Kidney Cullen; [id number] Pumpkin were developed and had performance characteristics determined by [facility]. These tests have not been cleared or approved by the U.S. Food and Drug Administration. The FDA has determined that such clearance or approval is not necessary. These tests are used for clinical purposes. These should not be regarded as investigational or for research. Resulting Agency Comment Lab Testing performed at: [facility] [address] ??[facility] [id number] Tracey Patel MD LAB - SEROLOGY ORDER CARLOS ENRIQUE [facility] INSURANCE BILL [address] [place] [address] * US BREAST LEFT LTD (07/17/2017 10:29 AM FIRE EXTINGUISHER TESTER) Anatomical Region Laterality Modality Breast Left Ultrasound 07/17/2017 10:5 2 AM FIRE EXTINGUISHER TESTER Narrative 07/17/2017 10:54 AM FIRE EXTINGUISHER TESTER Left breast ultrasound Indication for examination: Palpable [...] DIGITAL IMAGE BILA G0202 (07/17/2017 10:10 AM FIRE EXTINGUISHER TESTER) Anatomical Region Laterality Modality Bilateral Mammography 07/17/2017 11:1 7 AM FIRE EXTINGUISHER TESTER Narrative 07/17/2017 11:24 AM FIRE EXTINGUISHER TESTER DIGITAL BILATERAL DIAGNOSTIC MAMMOGRAMS WITH CAD [...] if suspicious findings are present clinically. An [employer] Certified Facility. [facility] Breast Centers utilize [employer] as a reminder system to notify patients of their next recommended mammogram. Edited by Jennifer Stockton on 07/17/2017 11:23 AM Joyce Saldivar MD MAMMO ORDERABLES * (ABNORMAL) PAP IG LB +HPV APTIMA REFLEX 16,18/45 (07/09/2017 3:07 PM FIRE EXTINGUISHER TESTER) Diagnosis (A) [facility] ACCOUNT BILL Comment: [...] UTERINE CERVIX / Unknown 07/09/2017 3:07 PM FIRE EXTINGUISHER TESTER 07/09/2017 Narrative [facility] ACCOUNT BILL - 07/15/2017 5:10 PM FIRE EXTINGUISHER TESTER Source.............Cervix LMP / Prev Treat...UMA=[id number] No. of containers..01 ThinPrep Vial Resulting Agency Comment [facility] [address] [place] ??Jason GONZALEZ [id number] Joyce Saldivar MD LAB - PATHOLOGY/CYTO LOGY ORDERABLES [facility] ACCOUNT [place] [address] [place] [address] * US PELVIS WITH TRANSVAG NON OB (07/01/2017 10:57 AM FIRE EXTINGUISHER TESTER) Anatomical Region Laterality Modality Pelvis Ultrasound 07/01/2017 11:0 6 AM FIRE EXTINGUISHER TESTER Impressions 07/01/2017 11:12 AM FIRE EXTINGUISHER TESTER RIGHT FOLLICLE CYSTS, OTHERWISE UNREMARKABLE. Edited by Jennifer Stockton on 07/01/2017 11:12 AM Narrative 07/01/2017 11:12 AM FIRE EXTINGUISHER TESTER ULTRASOUND PELVIS TRANSABDOMINAL ULTRASOUND PELVIS TRANSVAGINAL ULTRASOUND [...] LIPID PROFILE W TCHOL/HDL (06/17/2017 10:22 AM FIRE EXTINGUISHER TESTER) Cholesterol 185 <200 mg/dL [facility] ACCOUNT BILL Triglycerides 39 <150 mg/dL [facility] ACCOUNT BILL HDL Cholesterol 83 >40 mg/dL [facility] ACCOUNT BILL VLDL Calculated 8 <=30 mg/dL [facility] ACCOUNT BILL LDL Calculated 94 <130 mg/dL [facility] ACCOUNT BILL Comment:LDL/HDL RATIO BLOOD ([facility]) 1.1 <5.0 Cholesterol/HDL Ratio 2.2 <4.5 [facility] ACCOUNT BILL Comment:FASTING Blood BLOOD SPECIMEN / Unknown 06/17/2017 10:22 AM FIRE EXTINGUISHER TESTER 06/17/2017 Narrative Resulting Agency Comment [facility] [address] ??[facility] [id number] Tracey Patel MD LAB - CHEMISTRY LEXX RAMIREZ [facility] ACCOUNT BILL [address] [place] [address] * (ABNORMAL) VITAMIN D 25-HYDROXY (06/17/2017 10:22 AM FIRE EXTINGUISHER TESTER) Pathologist [facility] Vitamin D, 25 Hydroxy 22.79(L) 30 - 100 ng/mL [facility] ACCOUNT BILL Comment: Vitamin D Status: ?Deficiency ? <20 ? ng/mL ?Insufficiency ?? 20-30 ??ng/mL ?Sufficiency ? 30-100 ng/mL ?Toxicity ? >100 ?ng/mL FASTING Blood BLOOD SPECIMEN / Unknown 06/17/2017 10:22 AM FIRE EXTINGUISHER TESTER 06/17/2017 Narrative Resulting Agency Comment [facility] [address] [place] [address] ??[facility] [phone] Tracey Patel MD LAB - CHEMISTRY LEXX RAMIREZ [facility] ACCOUNT BILL [address] [place] [address] * (ABNORMAL) CBC W AUTO DIFFERENTIAL (06/17/2017 10:22 AM FIRE EXTINGUISHER TESTER) WBC 4.1(L) 4.4 - 10.7 x10E9/L [facility] [...] BLOOD SPECIMEN / Unknown 06/17/2017 10:22 AM FIRE EXTINGUISHER TESTER 06/17/2017 Narrative Resulting Agency Comment [facility] [address] ??[place] [phone] Tracey Patel MD LAB - HEMATOLOGY ORD ERABLES [facility] ACCOUNT BILL [address] [place] [address] * (ABNORMAL) COMPREHENSIVE METABOLIC PANEL (06/17/2017 10:22 AM FIRE EXTINGUISHER TESTER) Glucose 79 74 - 106 mg/dL [...] BLOOD SPECIMEN / Unknown 06/17/2017 10:22 AM FIRE EXTINGUISHER TESTER 06/17/2017 Narrative Resulting Agency Comment [facility] [address] ??[place] [id number] Tracey Patel MD LAB - CHEMISTRY ORDE RABLES Performing Organization Address City/[facility]/ZIP Co de Phone Number [facility] ACCOUNT BILL [address] [place] [address] * TSH (06/17/2017 10:22 AM FIRE EXTINGUISHER TESTER) TSH 2.85 0.358 - 3.740 uIU/mL [facility] ACCOUNT BILL Comment:FASTING Blood BLOOD SPECIMEN / Unknown 06/17/2017 10:22 AM FIRE EXTINGUISHER TESTER 06/17/2017 Narrative Resulting Agency Comment [facility] [address] ??[facility] [phone] Tracey Patel MD LAB - CHEMISTRY LEXX RAMIREZ Performing Organization Address [facility] Co de Phone Number [facility] ACCOUNT BILL [address] [place] [address] * RHEUMATOID FACTOR BLOOD QUANTITATIVE (06/17/2017 10:20 AM FIRE EXTINGUISHER TESTER) Rheumatoid Factor <10 <15 IU/mL [facility] ACCOUNT BILL Comment:FASTING Blood BLOOD SPECIMEN / Unknown 06/17/2017 10:20 AM FIRE EXTINGUISHER TESTER 06/17/2017 Narrative Resulting Agency Comment [address] ??[facility] [phone] Tracey Patel MD LAB - CHEMISTRY LEXX RAMIREZ Performing Organization Address [facility] Co de Phone Number [facility] ACCOUNT BILL [address] [place] [address] * C-REACTIVE PROTEIN (06/17/2017 10:20 AM FIRE EXTINGUISHER TESTER) C-Reactive Protein <0.29 <0.30 mg/dL [facility] ACCOUNT BILL Comment:FASTING Blood BLOOD SPECIMEN / Unknown 06/17/2017 10:20 AM FIRE EXTINGUISHER TESTER 06/17/2017 Narrative Resulting Agency Comment [facility] [address] ??[facility] [phone] Tracey Patel MD LAB - CHEMISTRY LEXX RAMIREZ [facility] ACCOUNT BILL [address] [place] [address] * GEO BLOOD SCREEN W/REFLEX TITER (06/17/2017 10:20 AM FIRE EXTINGUISHER TESTER) GEO Negative Negative [facility] ACCOUNT BILL Comment:FASTING Blood BLOOD SPECIMEN / Unknown 06/17/2017 10:20 AM FIRE EXTINGUISHER TESTER 06/17/2017 Narrative Resulting Agency Comment [facility] [address] [place] [address] ??[facility] [id number] Tracey Patel MD LAB - CHEMISTRY LEXX RAMIREZ [facility] ACCOUNT BILL [address] [place] [address] * URINALYSIS - POINT OF CARE (06/17/2017) Clarity UA POCT clear Color UA POCT yellow Leukocyte UA negative Negative Nitrite UA POCT negative Negative Urobilinogen UA 0.2 0.1 - 1.0 Protein UA POCT negative Negative pH UA 6.0 5.0 - 8.0 pH units Blood UA negative Negative Specific [place] UA POCT 1.010 1.002 - 1.030 Ketone UA negative Negative Bilirubin UA POCT negative Negative Glucose UA negative Negative Urine URINE / Unknown 06/17/2017 Tracey Patel MD LAB - POINT OF CARE ORDERABLES Care Teams Recreational Director Relationship Specialty Start Date End Date Tracey Patel MD PCP - General Family Medicine 06/13/17
--- OUTSIDE RECORDS SUMMARY | 2024-09-07 09:31 | XMS_ITS | Clinical Summary ---
Author Organization [facility] Address [address] [place] [address] Care Team Providers Care Casket Trimmer Name Role Phone Tracey Patel MD Primary Care Provider [phone] Source Comments [facility],non-owned Affiliates and Associated Physician Practices is amultiple site organization consisting of ambulatory clinics and hospital sitesin [place], [place], [place] and [place]. This disclosure is being madepursuant to the Care Everywhere program and may not contain all information available regarding this patient. Last updated 18.[facility] Allergies No known active allergies Medications * [...] MAMMO BILAT DIAGNOSTIC Routine 07/17/2017 10:10 AM WINDOWS 7 DEPLOYMENT LEAD Left breast lump PAP IG LB +HPV APTIMA REFLEX 16,18/45 Routine 07/09/2017 3:07 PM WINDOWS 7 DEPLOYMENT LEAD Well woman exam with routine gynecological exam Screening for HPV (human papillomavirus) COMPREHENSIVE METABOLIC PANEL Routine 06/17/2017 10:22 AM WINDOWS 7 DEPLOYMENT LEAD Annual physical exam LIPID PROFILE W TCHOL/HDL Routine 06/17/2017 10:22 AM WINDOWS 7 DEPLOYMENT LEAD Annual physical exam from Last 3 Months or Most Recently Relevant to Health Maintenance Results * MAMMO DIAG DIRECT DIGITAL IMAGE BILA G0202 (07/17/2017 10:10 AM WINDOWS 7 DEPLOYMENT LEAD) Anatomical Region Laterality Modality Bilateral Mammography 07/17/2017 11:1 7 AM WINDOWS 7 DEPLOYMENT LEAD Narrative 07/17/2017 11:24 AM WINDOWS 7 DEPLOYMENT LEAD DIGITAL BILATERAL DIAGNOSTIC MAMMOGRAMS WITH CAD CORRELATION [...] if suspicious findings are present clinically. An [employer] Certified Facility. [facility] Breast Centers utilize [employer] as a reminder system to notify patients of their next recommended mammogram. Edited by Jennifer Stockton on 07/17/2017 11:23 AM Joyce Saldivar MD MAMMO ORDERABLES * (ABNORMAL) PAP IG LB +HPV APTIMA REFLEX 16,18/45 (07/09/2017 3:07 PM WINDOWS 7 DEPLOYMENT LEAD) Diagnosis (A) [facility] ACCOUNT BILL Comment: EPITHELIAL [...] UTERINE CERVIX / Unknown 07/09/2017 3:07 PM WINDOWS 7 DEPLOYMENT LEAD 07/09/2017 Narrative [facility] ACCOUNT BILL - 07/15/2017 5:10 PM WINDOWS 7 DEPLOYMENT LEAD Source.............Cervix LMP / Prev Treat...EMD=[id number] No. of containers..01 ThinPrep Vial Resulting Agency Comment [facility] ??Jason GONZALEZ [id number] Joyce Saldivar MD LAB - PATHOLOGY/CYTO LOGY ORDERABLES Performing Organization Address City/[facility]/ZIP Co de Phone Number [facility] ACCOUNT BILL [address] [place] [address] * LIPID PROFILE W TCHOL/HDL (06/17/2017 10:22 AM WINDOWS 7 DEPLOYMENT LEAD) Cholesterol 185 <200 mg/dL [facility] ACCOUNT BILL [...] BLOOD SPECIMEN / Unknown 06/17/2017 10:22 AM WINDOWS 7 DEPLOYMENT LEAD 06/17/2017 Narrative Resulting Agency Comment [facility] Health [facility] [place] [address] ??[place] [phone] Tracey Patel MD LAB - CHEMISTRY LEXX RAMIREZ Performing Organization Address City/[facility] Co de Phone Number [facility] ACCOUNT BILL [address] [place] [address] * (ABNORMAL) COMPREHENSIVE METABOLIC PANEL (06/17/2017 10:22 AM WINDOWS 7 DEPLOYMENT LEAD) Glucose 79 74 - 106 mg/dL [facility] [...] BLOOD SPECIMEN / Unknown 06/17/2017 10:22 AM WINDOWS 7 DEPLOYMENT LEAD 06/17/2017 Narrative Resulting Agency Comment [address] ??[facility] [phone] Tracey Patel MD LAB - CHEMISTRY LEXX RAMIREZ [facility] Organization Address City/State/ZIP Co de Phone Number [facility] ACCOUNT BILL [address] [place] [address] from Last 3 Months or Most Recently Relevant to Health Maintenance Care Teams Casket Trimmer Relationship Specialty Start Date End Date Tracey Patel MD PCP - General Family Medicine 06/13/17
--- OUTSIDE RECORDS SUMMARY | 2024-09-07 09:31 | XMS_ITS | Encounter Summary ---
Author Organization [facility] Address [address] [place] [address] Care Team Providers Care Audiometric Technician Name Role Phone Roxanna Acosta MD Primary Care Provider [phone] Encounter Details Date Type Department Care Team (Late Contact Info) Description 09/11/2007 Outpatient Historical [facility] SKIN TOGGLER - [address] [place] [address] Enrique Mckinney MD 1 [facility] [address] [place] [address] Social History Tobacco Use Types Packs/Day Years Used Date Smoking Tobacco: Never Assessed Comments Unknown Sex and Gender Information Value Date Recorded Sex Assigned at Not on file Legal Sex Female 4:02 AM CUSTOMIZER Gender Identity Not on file Sexual Orientation Not on file documented as of this encounter Plan of Treatment Upcoming Encounters Date Type Department Care Team (Late st Contact Info) Description 10/27/2024 10:00 AM CDT Office Visit [facility] Oncology and Hematology - Farzad [address] [facility] [address] [place] [address] Michele Smith MD [address] [facility] [address] [place] [address] documented as of this encounter Visit Diagnoses Not on filedocumented in this encounter Care Teams Audiometric Technician Relationship Specialty Start Date End Date Roxanna Acosta MD PCP - General Family Practice 02/19/12 documented as of this encounter
--- OUTSIDE RECORDS SUMMARY | 2024-09-07 09:31 | XMS_ITS | Encounter Summary ---
Author Organization [facility] Address [address] [place] [address] Care Team Providers Care Pipe And Boiler Covers Supervisor Name Role Phone Roxanna Acosta MD Primary Care Provider Encounter Details Date Type Department Care Team (Late Contact Info) Description 04/22/2007 Outpatient Historical [facility] MOTEL FRONT DESK ATTENDANT - [address] [place] [address] Enrique Mckinney MD 1 [facility] [address] [place] [address] Social History Tobacco Use Types Packs/Day Years Used Date Smoking Tobacco: Never Assessed Comments Unknown Sex and Gender Information Value Date Recorded Sex Assigned at Not on file Legal Sex Female 4:02 AM INSTITUTIONAL COOK Gender Identity Not on file Sexual Orientation Not on file documented as of this encounter Plan of Treatment Upcoming Encounters Date Type Department Care Team (Late st Contact Info) Description 10/27/2024 10:00 AM CDT Office Visit [facility] Oncology and Hematology - Farzad [address] [facility] [address] [place] [address] Michele Smith MD 2[address] [facility] [address] [place] [address] documented as of this encounter Visit Diagnoses Not on filedocumented in this encounter Care Teams Pipe And Boiler Covers Supervisor Relationship Specialty Start Date End Date Roxanna Acosta MD PCP - General Family Practice 02/19/12 documented as of this encounter
--- OUTSIDE RECORDS SUMMARY | 2024-09-07 09:31 | XMS_ITS | Encounter Summary ---
Author Organization [facility] Address [address] [place] [address] Care Team Providers Care Buffet Attendant Name Role Phone Roxanna Acosta MD Primary Care Provider [phone] Encounter Details Date Type Department Care Team (Late Contact Info) Description 10/05/2007 Outpatient Historical [facility] SECTION CREWS ACTIVITIES CLERK - Medical Lula [facility] [address] [facility] [address] [address] Epifanio Jones MD NO ADDRESS ON FILE Social History Tobacco Use Types Packs/Day Years Used Date Smoking Tobacco: Never Assessed Comments Unknown Sex and Gender Information Value Date Recorded Sex Assigned at Not on file Legal Sex Female 4:02 AM REGISTRAR ASSISTANT Gender Identity Not on file Sexual Orientation Not on file documented as of this encounter Plan of Treatment Upcoming Encounters Date Type Department Care Team (Late Contact Info) Description 10/27/2024 10:00 AM CDT Office Visit [facility] Oncology and Hematology - Farzad [address] [facility] [address] [place] [address] Michele Smith MD [address] [facility] [address] [place] [address] documented as of this encounter Visit Diagnoses Not on filedocumented in this encounter Care Teams Buffet Attendant Relationship Specialty Start Date End Date Roxanna Acosta MD PCP - General Family Practice 02/19/12 documented as of this encounter
--- OUTSIDE RECORDS SUMMARY | 2024-09-07 09:31 | XMS_ITS | Encounter Summary ---
Author Organization [facility] Address [address] [place] [address] Care Team Providers Care Us Marketing Director Name Role Phone Roxanna Acosta MD Primary Care Provider [phone] Encounter Details Date Type Department Care Team (Late Contact Info) Description 06/14/2002 Outpatient Historical [facility] Support [facility]. ([facility] Card[facility]) [address] [place] [address] Dallas Gannon MD NO ADDRESS ON FILE Social History Tobacco Use Types Packs/Day Years Used Date Smoking Tobacco: Never Assessed Comments Unknown Sex and Gender Information Value Date Recorded Sex Assigned at Not on file Legal Sex Female 4:02 AM ALMOND PASTE MIXER Gender Identity Not on file Sexual Orientation Not on file documented as of this encounter Plan of Treatment Upcoming Encounters Date Type Department Care Team ([facility] Contact Info) Description 10/27/2024 10:00 AM CDT Office Visit [facility] Oncology and Hematology - Farzad [address] Manc[address] [facility] [address] [place] [address] Michele Smith MD [address] [facility] [address] [place] [address] documented as of this encounter Visit Diagnoses Not on filedocumented in this encounter Care Teams Us Marketing Director Relationship Specialty Start Date End Date Roxanna Acosta MD PCP - General Family Practice 02/19/12 documented as of this encounter
--- OUTSIDE RECORDS SUMMARY | 2024-09-07 09:31 | XMS_ITS | Encounter Summary ---
Author Organization [facility] Address [address] [place] [address] Care Team Providers Care Director Adult Name Role Phone Roxanna Acosta MD Primary Care Provider Encounter Details Date Type Department Care Team (Late Contact Info) Description 06/18/2007 Outpatient Historical [facility] BILINGUAL SALES REPRESENTATIVE - Medical [address] [address] Enrique Mckinney MD [address] [address] Social History Tobacco Use Types Packs/Day Years Used Date Smoking Tobacco: Never Assessed Comments Unknown Sex and Gender Information Value Date Recorded Sex Assigned at Not on file Legal Sex Female 4:02 AM FINANCIAL SERVICES SPECIALIST Gender Identity Not on file Sexual Orientation Not on file documented as of this encounter Plan of Treatment Upcoming Encounters Date Type Department Care Team (Late st Contact Info) Description 10/27/2024 10:00 AM CDT Office Visit [facility] Oncology and Hematology - Farz[place] [address] T[address] Manc[address] [facility] [address] [place] [address] Michele Smith MD 2[address] [facility] [address] [place] [address] documented as of this encounter Visit Diagnoses Not on filedocumented in this encounter Care Teams Director Adult Relationship Specialty Start Date End Date Roxanna Acosta MD PCP - General Family Practice 02/19/12 documented as of this encounter
--- OUTSIDE RECORDS SUMMARY | 2024-09-07 09:31 | XMS_ITS | Encounter Summary ---
Author Organization [facility] Address [address] [place] [address] Care Team Providers Care Swimming Pool Serviceperson Name Role Phone Roxanna Acosta MD Primary Care Provider [phone] Encounter Details Date Type Department Care Team (Latest Contact Info) Description 07/16/2007 Outpatient [facility] Enrique Mckinney MD [address] [facility] [address] [facility] [address] Naveed Means MD [address] [place] [address] [address] [place] [address] Other Specified Complication, Antepartum Social History Tobacco Use Types Packs/Day Years Used Date Smoking Tobacco: Never Assessed Comments Unknown Sex and Gender Information Value Date Recorded Sex Assigned at Not on file Legal Sex Female 4:02 AM TOWER HAND Gender Identity Not on file Sexual Orientation Not on file documented as of this encounter Plan of Treatment Upcoming Encounters Date Type Department Care Team (Late st Contact Info) Description 10/27/2024 10:00 AM CDT Office Visit [facility] Oncology and Hematology - Farzad [address] [facility] [address] [place] [address] Michele Smith MD 2227 [facility] [address] [place] [address] documented as of this encounter Visit Diagnoses Diagnosis Other specified complication, antepartum(646.83) Other specified complication, antepartum documented in this encounter Care Teams Swimming Pool Serviceperson Relationship Specialty Start Date End Date Roxanna Acosta MD PCP - General Family Practice 02/19/12 documented as of this encounter
--- OUTSIDE RECORDS SUMMARY | 2024-09-07 09:31 | XMS_ITS | Encounter Summary ---
Author Organization [facility] Address [address] [place] [address] Care Team Providers Care Marine Geologist Name Role Phone Roxanna Acosta MD Primary Care Provider Encounter Details Date Type Department Care Team (Late Contact Info) Description 05/20/2007 Outpatient Historical [facility] CONTACT CENTER CONSULTANT - [address] [place] [address] Enrique Mckinney MD 1 [facility] [address] [place] [address] Social History Tobacco Use Types Packs/Day Years Used Date Smoking Tobacco: Never Assessed Comments Unknown Sex and Gender Information Value Date Recorded Sex Assigned at Not on file Legal Sex Female 4:02 AM ORNAMENTAL IRONWORKING SUPERVISOR Gender Identity Not on file Sexual Orientation Not on file documented as of this encounter Plan of Treatment Upcoming Encounters Date Type Department Care Team (Late st Contact Info) Description 10/27/2024 10:00 AM CDT Office Visit [facility] Oncology and Hematology - Farzad [address]anc[address] [facility] 200 [place] [address] Michele Smith MD 2227 [facility] [address] [place] [address] documented as of this encounter Visit Diagnoses Not on filedocumented in this encounter Care Teams Marine Geologist Relationship Specialty Start Date End Date Roxanna Acosta MD PCP - General Family Practice 02/19/12 documented as of this encounter
--- OUTSIDE RECORDS SUMMARY | 2024-09-07 09:31 | XMS_ITS | Encounter Summary ---
Author Organization [facility] Address [address] [place] [address] Care Team Providers Care Marketing Officer Name Role Phone Roxanna Acosta MD Primary Care Provider Encounter Details Date Type Department Care Team (Late Contact Info) Description 12/09/2005 Outpatient Historical [facility] Primary Care - [address] [place] [address] Barak Greenberg MD [address] [facility] [address] [place], [place] [id number] Social History Tobacco Use Types Packs/Day Years Used Date Smoking Tobacco: Never Assessed Comments Unknown Sex and Gender Information Value Date Recorded Sex Assigned at Not on file Legal Sex Female 4:02 AM WEB SERVICES ARCHITECT Gender Identity Not on file Sexual [...] Description 10/27/2024 10:00 AM CDT Office Visit [facility] Oncology and Hematology - Farzad 222 [facility] [address] [place] [address] Michele Smith MD 2227 [facility] [address] [place] [address] documented as of this encounter Visit Diagnoses Not on filedocumented in this encounter Care Teams Marketing Officer Relationship Specialty Start Date End Date Roxanna Acosta MD PCP - General Family Practice 02/19/12 documented as of this encounter
--- OUTSIDE RECORDS SUMMARY | 2024-09-07 09:31 | XMS_ITS | Encounter Summary ---
Author Organization [facility] Address [address] [place] [address] Care Team Providers Care Information Systems Security Officer Name Role Phone Roxanna Acosta MD Primary Care Provider Encounter Details Date Type Department Care Team (Latest Contact Info) Description 08/17/2007 Outpatient Historical [facility] Naveed Means MD [address] [place] [address] Other Specified Complication, Antepartum Social History Tobacco Use Types Packs/Day Years Used Date Smoking Tobacco: Never Assessed Comments Unknown Sex and Gender Information Value Date Recorded Sex Assigned at Not on file Legal Sex Female 4:02 AM JUNIOR BRAND MANAGER Gender Identity Not on file Sexual Orientation Not on file documented as of this encounter Plan of Treatment Upcoming Encounters Date Type Department Care Team (Late st Contact Info) Description 10/27/2024 10:00 AM CDT Office Visit [facility] Oncology and Hematology - Farzad [address] [facility] [address] [place] [address] Michele Smith MD 2[address] [facility] [address] [place] [address] documented as of this encounter Visit Diagnoses Diagnosis Other specified complication, antepartum(646.83) Other specified complication, antepartum documented in this encounter Care Teams Information Systems Security Officer Relationship Specialty Start Date End Date Roxanna Acosta MD PCP - General Family Practice 02/19/12 documented as of this encounter
--- OUTSIDE RECORDS SUMMARY | 2024-09-07 09:32 | XMS_ITS | Encounter Summary ---
Author Organization [facility] Address 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 Gender Identity Not on file Sexual Orientation Not on file documented as of this encounter Plan of Treatment Upcoming Encounters Date Type Department Care Team (Late st Contact Info) Description 10/27/2024 10:00 AM CDT Office Visit [facility] Oncology and Hematology - Farzad 2227 [facility] 200 [place] [address] Michele Smith MD 2227 [facility] [address] [place] [address] documented as of this encounter Visit Diagnoses Not on filedocumented in this encounter Care Teams Sanitation Truck Cleaner Relationship Specialty Start Date End Date Roxanna Acosta MD PCP - General Family Practice 02/19/12 documented as of this encounter
--- OUTSIDE RECORDS SUMMARY | 2024-09-07 09:32 | XMS_ITS | Encounter Summary ---
Author Organization [facility] Address 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 Gender Identity Not on file Sexual Orientation Not on file documented as of this encounter Plan of Treatment Upcoming Encounters Date Type Department Care Team (Late Contact Info) Description 10/27/2024 10:00 AM CDT Office Visit [facility] Oncology and Hematology - Farzad 2[address] [facility] [address] [place] [address] Michele Smith MD 2[address] [facility] [address] [place] [address] documented as of this encounter Visit Diagnoses Not on filedocumented in this encounter Care Teams Sand Screener Operator Relationship Specialty Start Date End Date Roxanna Acosta MD PCP - General Family Practice 02/19/12 documented as of this encounter
--- OUTSIDE RECORDS SUMMARY | 2024-09-07 09:32 | XMS_ITS | Encounter Summary ---
Author Organization [facility] Address [address] [place] [address] Care Team Providers Care Airbrush Artist Photography Name Role Phone Roxanna Acosta MD Primary Care Provider Encounter Details Date Type Department Care Team (Late st Contact Info) Description 05/31/2002 Outpatient Historical [facility] Primary Care - [address] [place] [address] Otf Talavera Social History Tobacco Use Types Packs/Day Years Used Date Smoking Tobacco: Never Assessed Comments Unknown Sex and Gender Information Value Date Recorded Sex Assigned at Not on file Legal Sex Female 4:02 AM ACTIVE DIRECTORY SYSTEMS ADMINISTRATOR Gender Identity Not on file Sexual Orientation Not on file documented as of this encounter Plan of Treatment Upcoming Encounters Date Type Department Care Team (Late Contact Info) Description 10/27/2024 10:00 AM CDT Office Visit [facility] Oncology and Hematology - Farzad 2[address] [facility] 200 [place] [address] Michele mSith MD 2227 [facility] [address] [place] [address] documented as of this encounter Visit Diagnoses Not on filedocumented in this encounter Care Teams Airbrush Artist Photography Relationship Specialty Start Date End Date Roxanna Acosta MD PCP - General Family Practice 02/19/12 documented as of this encounter
== END 2024-09-07 09:04 | disposition home or self-care (01) ==
PROVIDERS: PCP Family Medicine; Visit Provider Obstetrics & Gynecology
DX: Z01.818 Encounter for other preprocedural examination (principal); D64.9 Anemia, unspecified; N92.6 Irregular menstruation, unspecified
CPT/HCPCS: 36415; 85027; 86850; 86900; 86901

== ENCOUNTER 2024-09-09 00:38 | Day surgery (SDC) | payer OTHER, SELFPAY ==
[2024-08-31 10:38] VITALS: BMI 25.6
--- NOTE | 2024-08-31 10:43 | PC.NURSE ---
Report to the Outpatient Waiting Room, entrance under the green pavilion located off [facility], at time _0730_ on date _[id number]_. Planned Procedure Time: _0930_.? Time changes happen often and if your time is changed the preop area will call you the afternoon before. - You and your visitor will be asked to self-screen and do not enter if you have any COVID symptoms. Please call surgeon if you need to reschedule. - A mask is optional within the hospital at this time. Patients may have clear liquids (water, carbonated beverages, clear teas, apple juice) until 3 hours prior to surgery with a maximum of 20 ounces. - No food from midnight until time of surgery and no smoking. This includes no chewing gum, candy or mints. Take only the following medications with a SIP of water on the morning of surgery: ___None DO NOT STOP ANY OF YOUR OTHER PRESCRIPTION MEDICATIONS PRIOR TO SURGERY EXCEPT THE FOLLOWING Medications to discontinue per physician __Naproxen Date to take last dose____Per Dr Talbert's office.____ Hold all vitamins and supplements for 3 days per anesthesiologist. Please no make-up, nail yi, hairspray, perfume, deodorant, or body powder the day of surgery.? No jewelry (including any body piercings) or valuables the day of surgery, leave them at home.? Please take a shower or bath the night before, or the morning of, surgery with an antibacterial soap.? Wear comfortable, loose fitting clothing.? - Jewelry must be removed prior to entering the operating room.? Rings and piercings that are not removed may be cut off. - The hospital will not accept responsibility for valuables.? - Please leave all valuables, including medications, at home the day of surgery. If you are going home after surgery, a licensed auto driver must drive you home.? - NO public transportation without another adult if you receive anesthesia. - We recommend that an adult stay with you for 24 hours following discharge. - We also recommend that you do not drive, make important decision, drink alcoholic beverages, or take any drugs that were not prescribed by your health care provider for at least 24 hours after your discharge time. Follow any additional instructions given to you from your surgeon. Telephone instructions given to __Amie___and asked if any additional questions and then verbalized understanding. Patient advised to call surgeon office or pre surgery nurse liaison [phone] if any additional questions.
--- NOTE | 2024-08-31 13:37 | PM.IMHP ---
H&P: HPI History of Present Illness Date/Time: 08/31/24 13:37 44-year-old 5 para 4014 female presents with complaints of menometrorrhagia. Cycles are coming at 28-30 day intervals, lasting 6-7 days with 3-4 days very heavy with clotting and cramping. On the heavier days changing a pad and a tampon at least hourly and often bleeds through her clothes as well as at night. Has had 2 admissions in the last year for transfusions, most recent H&H of 05/02.3. GI evaluation is negative. Hysteroscopy with D&C performed with benign pathology, recent Pap smear also normal. Ultrasound performed prior to D&C showed thickened tissue. No significant abdominal or pelvic surgery in the past, 2 LEEP procedures have been formed, vaginal delivery x4. Chief Complaint: Menometrorrhagia Review of Systems Review of Systems: All systems reviewed & are unremarkable except as noted in HPI and below PMFSH Past Medical History Medical History Screening mammogram, encounter for Irregular periods IBS (irritable bowel syndrome) Iron deficiency anemia, unspecified Hx of LEEP (loop electrosurgical excision procedure) of cervix complicating 2018 Surgical History Surgical History History of hysteroscopy (07/19/24) Hysteroscopy 2. Dilation and curettage History of endoscopy (~03/2024) H/O colonoscopy (~03/2024) Hx of tonsillectomy 2000 Social History Social History Smoking status: Never smoker Second hand tobacco smoke exposure: No Alcohol intake: current Drinks per week: 2 Substance use: never Substance use type: does not use Do You Feel Safe in your Home?: Yes Lack of Transportation: No Lack of Food: Never True Current Housing: Decline to Answer Concerned About Future Housing: Decline to Answer Difficulty Paying Gas/Electric Bills: Decline to Answer Difficulty Paying for Meds: Decline to Answer Currently Unemployed: Decline to Answer Education: Decline to Answer Difficulty w/ Childcare or Family Care: Decline to Answer Living arrangements: with family Additional living arrangements comments: Occupation/Education: 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 Gender identity (if verbalized by the patient): Female Sexual Orientation (if Verbalized by the Patient): Straight or Heterosexual Spiritual care concerns: No Agree to blood products: Yes Meds Home Medications and Allergies Home Medications ?Medication ?Instructions ?Recorded ?Confirmed ?Type naproxen sodium 220 mg capsule 220 mg PO BID PRN Pain (Scale 09/22/23 08/31/24 History (Aleve) Score 1-3) dextroamphetamine-amphetamine ER 60 mg (3 x 20 mg) PO DIRECTED 08/26/24 08/31/24 Rx 20 mg 24hr capsule,extend release #90 caps Allergies Allergy/AdvReac Type Severity Reaction Status Date / Time potassium sorbate AdvReac Intermediate Blister Verified 08/31/24 10:37 gluten AdvReac Abdominal Verified 08/31/24 10:37 Pain Exam Const: General: cooperative and healthy appearing Resp: Effort & Inspection: normal respiratory effort Auscultation: clear to auscultation bilaterally Cardio: Rate: regular rate Rhythm: regular rhythm GI: Inspection: normal to inspection Auscultation: normal bowel sounds : External Female Exam: normal external appearance Speculum Exam - Vagina: normal appearance of the vagina Speculum Exam - Cervix: normal appearance of the cervix Bimanual exam- vagina & uterus: normal bimanual exam and enlarged ( 8-10 week size) Bimanual Exam- Adnexa, other: normal adnexae Assessment and Plan Assessment and plan (1) Menorrhagia: Code(s): N92.0 - Excessive and frequent menstruation with regular cycle Status: Acute (2) Enlarged uterus: Code(s): N85.2 - Hypertrophy of uterus Status: Acute (3) History of LEEP (loop electrosurgical excision procedure) of cervix complicating : Code(s): O34.40 - Maternal care for other abnormalities of cervix, unspecified trimester; Z98.890 - Other specified postprocedural states Status: Acute (4) Anemia: Code(s): D64.9 - Anemia, unspecified Status: Acute Plan proceed with robotic assisted laparoscopic total hysterectomy with bilateral salpingectomy, ovarian preservation.
[2024-09-09] VITALS (15 sets, daily range): BP systolic 96–136; BP diastolic 53–85; PULSE 50–94; RESP 10–16; TEMP 36–37.2; O2SAT 95–100; BMI 26.6
--- OUTSIDE RECORDS SUMMARY | 2024-09-09 00:41 | XMS_ITS | Encounter Summary ---
Author Organization [facility] Address [address] [place] [address] Care Team Providers Care Vamp Strap Ironer Name Role Phone Roxanna Acosta MD Primary Care Provider Encounter Details Date Type Department Care Team (Latest Contact Info) Description 01/05/2009 Outpatient Historical [facility], [address] Enrique Mckinney MD [address] [place] [address] Routine Gynecological Examination Social History Tobacco Use Types Packs/Day Years Used Date Smoking Tobacco: Never Alcohol Use Standard Drinks/Week Comments No 0 (1 standard drink = 0.6 oz pur e alcohol) Comments No Sex and Gender Information Value Date Recorded Sex Assigned at Not on file 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 Gender Identity Not on file Sexual Orientation Not on file documented as of this encounter Plan of Treatment Upcoming Encounters Date Type Department Care Team (Late st Contact Info) Description 10/27/2024 10:00 AM CDT Office Visit [facility] Oncology and Hematology - Farzad [address]anc[address] [facility] 200 [place] [address] Michele Smith MD 2227 [facility] [address] [place] [address] documented as of this encounter Visit Diagnoses Diagnosis Routine gynecological examination documented in this encounter Care Teams Vamp Strap Ironer Relationship Specialty Start Date End Date Roxanna Acosta MD PCP - General Family Practice 02/19/12 documented as of this encounter
--- OUTSIDE RECORDS SUMMARY | 2024-09-09 00:42 | XMS_ITS | Clinical Summary ---
Author Organization [address] Address [address] [place] [address] Care Team Providers Care File System Installer Name Role Phone Camille Costello Primary Care Provi roxanne Allergies Active Allergy Reactions Criticality Noted Date Comments Benadryl Decongestant Other (See comments) Low 01/03 Feel bad physically and mentally Medications dextroamphetami ne-amphetamine XR (ADDERALL XR) 30 mg 24 hr capsule Take 1 capsule (30 mg total) by mouth pan greaser before breakfast 1 Active ferrous sulfate ER [...] on file Legal Sex Female 7:01 PM SANITARY ENGINEERING TEACHER Gender Identity Not on file Sexual Orientation Not on file Obstetrics History Last Filed Vital Signs Vital Sign Reading Time Taken Comments Blood Pressure 108/74 02/28/2024 10:14 AM CDT Pulse 63 02/28/2024 10:14 AM CDT Temperature 36.3 C (97.4 F) 02/28/2024 10:14 AM CDT Respiratory Rate 16 02/28/2024 10:14 AM CDT [...] Regular Well Visit/Exam 18-64 1998 Covid-19 Vaccine (2023-2 5 season) 2024 06/10/2021, 11/26/2020, 10/28/2020 Influenza Vaccine (#1) 2024 , 05/19/2020 DTaP/Tdap/Td Vaccine (2 - Td or Tdap) 03/01/2031 03/01/2021 HPV Vaccines Aged Out No longer eligi ble based on patient's age to complete this topic Pneumococcal vaccine <65 Aged Out No longer eligible based on patient's age to complete this topic Insurance CHOICE PLUS [employer] [facility] Care Teams File System Installer Relationship Specialty Start Date End Date Camille Costello DO [address] [place] [address] PCP - General Family Medicine 09/27/21
--- OUTSIDE RECORDS SUMMARY | 2024-09-09 00:42 | XMS_ITS | Encounter Summary ---
Author Organization [facility] Address [address] [place] [address] Care Team Providers Care Handle Rounder Operator Name Role Phone Roxanna Acosta MD Primary Care Provider [phone] Encounter Details Date Type Department Care Team (Late Contact Info) Description 02/17/2004 Outpatient Historical [facility] Barak Greenberg MD [address] [facility] [address] [place] [address] ABDOMINAL PAIN LUQ (Primary Dx) Social History Tobacco Use Types Packs/Day Years Used Date Smoking Tobacco: Never Assessed Comments Unknown Sex and Gender Information Value Date Recorded Sex Assigned at Not on file Legal Sex Female 4:02 AM SEMICONDUCTOR WAFERS ETCH OPERATOR Gender Identity Not on file Sexual Orientation Not on file documented as of this encounter Plan of Treatment Upcoming Encounters Date Type Department Care Team (Late Contact Info) Description 10/27/2024 10:00 AM CDT Office Visit [facility] Oncology and Hematology - Farzad 2227 [facility] [address] [place] [address] Michele Smith MD 2227 [facility] [address] [place] [address] documented as of this encounter Visit Diagnoses Diagnosis Abdominal pain, left upper quadrant- Primary documented in this encounter Care Teams Handle Rounder Operator Relationship Specialty Start Date End Date Roxanna Acosta MD PCP - General Family Practice 02/19/12 documented as of this encounter
--- OUTSIDE RECORDS SUMMARY | 2024-09-09 00:42 | XMS_ITS | Encounter Summary ---
Author Organization [facility] Address [address] [place] [address] Care Team Providers Care Mechanical Maintenance Instructor Name Role Phone Roxanna Acosta MD Primary Care Provider [phone] Encounter Details Date Type Department Care Team (Late Contact Info) Description 07/20/2007 Outpatient Historical [facility] Maternal and Ground [address] [place] [address] Naveed Means MD [address] [facility] [address] [place] [address] Social History Tobacco Use Types Packs/Day Years Used Date Smoking Tobacco: Never Assessed Comments Unknown Sex and Gender Information Value Date Recorded Sex Assigned at Not on file 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 [address] [place] [address] documented as of this encounter Visit Diagnoses Not on filedocumented in this encounter Care Teams Mechanical Maintenance Instructor Relationship Specialty Start Date End Date Roxanna Acosta MD PCP - General Family Practice 02/19/12 documented as of this encounter
--- OUTSIDE RECORDS SUMMARY | 2024-09-09 00:42 | XMS_ITS | Encounter Summary ---
Author Organization [facility] Address [address] [place] [address] Care Team Providers Care Chemical Compounder Name Role Phone Roxanna Acosta MD Primary Care Provider Encounter Details Date Type Department Care Team (Late st Contact Info) Description 12/20/2002 Outpatient Historical [facility] Primary Care - [address] [place] [address] Otf Talavera Social History Tobacco Use Types Packs/Day Years Used Date Smoking Tobacco: Never Assessed Comments Unknown Sex and Gender Information Value Date Recorded Sex Assigned at Not on file Legal Sex Female 4:02 AM REAL ESTATE DIRECTOR Gender Identity Not on file Sexual Orientation Not on file documented as of this encounter Plan of Treatment Upcoming Encounters Date Type Department Care Team (Late st Contact Info) Description 10/27/2024 10:00 AM CDT Office Visit [facility] Oncology and Hematology - Farzad 2227 [facility] 200 [place] [address] Michele Smith MD 2227 [facility] [address] [place] [address] documented as of this encounter Visit Diagnoses Not on filedocumented in this encounter Care Teams Chemical Compounder Relationship Specialty Start Date End Date Roxanna Acosta MD PCP - General Family Practice 02/19/12 documented as of this encounter
--- OUTSIDE RECORDS SUMMARY | 2024-09-09 00:42 | XMS_ITS | Clinical Summary ---
Author Organization [facility] Address [address] [place] [address] Phone Care Team Providers Care Treatment Plant Mechanic Name Role Phone Roxanna Acosta MD [...] STL ABSTRACTION Provider, Abstract 08/24/2024 4:30 PM EPIC AMBULATORY ANALYSTS Telephone Check Up [facility] Oncology and Hematology [facility] [address] [place] [address] Michele Smith MD 08/24/2024 Orders Only [facility] Oncology and Hematology [facility] [address] [place] [address] Michele Smith MD 08/17/2024 External Device Data [...] on file Legal Sex Female 4:02 AM EPIC AMBULATORY ANALYSTS Gender Identity Not on file Sexual Orientation Not on file Occupation Industry Job Start Date Job End Date Not on file Not on file Not on file Not on file Last Filed Vital Signs Vital Sign Reading Time Taken Comments Blood Pressure 109/70 05/17/2024 10:02 AM CDT Pulse 84 05/17/2024 10:02 AM CDT Temperature 36.8 C (98.2 F) 05/17/2024 10:02 AM CDT Respiratory Rate 16 05/17/2024 10:02 AM CDT [...] Description 10/27/2024 10:00 AM CDT Office Visit [facility] Oncology and Hematology - [place] [address] [place] [address] [facility] [address] [place] [address] Michele Smith MD [address] [facility] [address] [place] [address] Health Maintenance Due Date Last [...] Comments IRON LEVEL Routine 08/23/2024 2:37 PM EPIC AMBULATORY ANALYSTS CERV/VAG CYTO AGE BASED SCREEN PAP Routine 11/10/2020 1:42 PM CDT Well woman exam with routine gynecological exam from Last 3 Months or Most Recently Relevant to Health Maintenance Results * IRON LEVEL (08/23/2024 2:37 PM EPIC AMBULATORY ANALYSTS) Blood us Michele Smith MD CHEMISTRY ORDERABLES Final Resu lt * CERV/VAG CYTO AGE BASED SCREEN PAP (11/10/2020 1:42 PM CDT) COMMENT (PAP): SEE COMMENT 2:34 PM CDT [facility] Comment: This order for age-based cervical cancer and STI screening follows ACOG guidelines(PB 168, 140, BNQ998). See individual assays for performing site location. [...] 2:34 PM CDT [facility] ENGINEERING INSPECTION ASSISTANT: SEE COMMENT 2020 2:34 PM CDT [facility] Comment: LAYNE ASHLEY(ASCP) CT Screening location: [address] [place] [address] JUANY Bowser [facility] REVIEW ENGINEERING INSPECTION ASSISTANT: SEE COMMENT 11/16/2020 2:34 PM CDT [facility] Comment: KMS, CT(ASCP) CT Screening location: [place] [address] [address] JUANY Bowser [address] EXPLANATORY NOTE SEE COMMENT 021 2:34 PM CDT [facility] Comment: EXPLANATORY NOTE: The Pap is [...] Detected Not Detected 11/16/2020 2:34 PM CDT [facility] Comment: Methodology: Environmental Health Physician-Mediated Amplification This assay detects E6/E7 viral messenger RNA (mRNA) from 14 high-risk HPV types (16,18,31,33,35,39,45,51,52,56,58,59,66,68). The analytical performance characteristics of this assay have been determined by [employer]. The modifications have not been cleared or approved by the FDA. This assay has been validated pursuant to the CLIA regulations and is used for clinical purposes. For additional information, please refer to http://education.YoungCracks/faq/PEG348q9 (This link if provided for information/ educational purposes only.) Genital SWAB OF ENDOCERVIX / Unknown Collection / Unknown 11/10/2020 1:42 PM CDT 11/10/2020 9:41 PM CDT Narrative [facility] - 11/16/2020 2:34 PM CDT Performing Organization Information: Site ID: [id number] [facility] Address: [address] [address] Director: Robby Steven D.O., MPH Site ID: [id number] Name: [facility] Address: [address] [address] JUANY Benitez [address] Director: Parth Herrera us Enrique Mckinney MD PATHOLOGY/CYTOLOGY ORDERABLES Final Result [facility] [phone] from Last 3 Months or Most Recently Relevant to Health Maintenance Insurance Advance Directives For more information, please contact: [phone] * Full Code (Latest Code Status on [...] 11:26 PM 08/16/2009 7:12 AM Care Teams Treatment Plant Mechanic Relationship Specialty Start Date End Date Roxanna Acosta MD PCP - General Family Practice 02/19/12
--- OUTSIDE RECORDS SUMMARY | 2024-09-09 00:42 | XMS_ITS | Patient Health Summary ---
Author Organization [facility] Address [address] [place] [address] Care Team Providers Care Gas Engine Repairer Name Role Phone Tracey Patel MD Primary Care Provider [phone] Note from [facility],non-owned Affiliates and Associated Physician Practices is amultiple site organization consisting of ambulatory clinics and hospital sitesin [place], [place], [place] and [place]. This disclosure is being madepursuant to the Care Everywhere program and may not contain all information available regarding this patient. Last updated 18.[facility] Allergies No known active allergies Medications * [...] 71 05/19/2020 10:58 AM CDT Temperature 36.6 C (97.9 F) 05/19/2020 10:58 AM CDT Respiratory Rate - - Oxygen Saturation [...] Class Description Blood [facility] INSURANCE BILL Comment: Levels of Specific IgE Class Description of Class ----- < 0.10 0 Negative 0.10 - 0.31 0/I Equivocal/Low 0.32 - 0.55 I Low 0.56 - 1.40 II Moderate 1.41 - 3.90 III High 3.91 - 19.00 IV Very High 19.01 - 100.00 V Very High >100.00 Very High Allergen Green Pea <0.10 Class 0 [...] BILL - 02/05/2019 1:06 PM CDT Test(s) [id number] Green Cullen; [id number] Kidney Cullen; [id number]-RiV Pumpkin were developed and had performance characteristics determined by [facility]. These tests have not been cleared or approved by the U.S. Food and Drug Administration. The FDA has determined that such clearance or approval is not necessary. These tests are used for clinical purposes. These should not be regarded as investigational or for research. Resulting Agency Comment Lab Testing performed at: [facility] [address] [id number] Tracey Patel MD LAB - SEROLOGY ORDER CARLOS ENRIQUE [facility] INSURANCE BILL [address] [address] * US BREAST LEFT LTD (07/17/2017 10:29 AM GAME PRODUCER) Anatomical Region Laterality Modality Breast Left Ultrasound 07/17/2017 10:5 2 AM GAME PRODUCER Narrative 07/17/2017 10:54 AM GAME PRODUCER Left breast ultrasound Indication for examination: Palpable [...] DIGITAL IMAGE BILA [id number] (07/17/2017 10:10 AM GAME PRODUCER) Anatomical Region Laterality Modality Bilateral Mammography 07/17/2017 11:1 7 AM GAME PRODUCER Narrative 07/17/2017 11:24 AM GAME PRODUCER DIGITAL BILATERAL DIAGNOSTIC MAMMOGRAMS WITH CAD CORRELATION [...] This may lower the sensitivity of mammography. Please correlate with clinical exam. FINDINGS: No suspicious [...] findings should be correlated with physical examination. A relatively nonspecific study should not preclude additional evaluation if suspicious findings are present clinically. An [employer] Certified Facility. [facility] utilize [employer] as a reminder system to notify patients of their next recommended mammogram. Edited by Jennifer Stockton on 07/17/2017 11:23 AM Joyce Saldivar MD MAMMO ORDERABLES * (ABNORMAL) PAP IG LB +HPV APTIMA REFLEX 16,18/45 (07/09/2017 3:07 PM GAME PRODUCER) Diagnosis (A) [facility] ACCOUNT BILL Comment: EPITHELIAL CELL ABNORMALITY. HIGH-GRADE SQUAMOUS INTRAEPITHELIAL LESION (HGSIL); MODERATE DYSPLASIA IS PRESENT. Human papillomavirus Aptima Positive( A) Negative [facility] ACCOUNT BILL Comment: This test detects fourteen high-risk HPV types (16/18/31/33/35/39/45/ 51/52/56/58/59/66/68) without differentiation. Specimen Adequacy [facility] ACCOUNT BILL Comment: Satisfactory for evaluation. Endocervical and/or squamous metaplastic cells (endocervical component) are [...] and malignant conditions of the uterine cervix. It is not a diagnostic procedure and should not be used as the sole means of detecting cervical cancer. Both false-positive and false-negative reports do occur. . IGLBP CPT Code Automation [facility] ACCOUNT BILL Comment: This liquid based ThinPrep(R) pap test was screened with the use of an image guided system. PART OF UTERINE CERVIX / Unknown 07/09/2017 3:07 PM GAME PRODUCER 07/09/2017 Narrative [facility] ACCOUNT BILL - 07/15/2017 5:10 PM GAME PRODUCER Source.............Cervix LMP / Prev Treat...ZZY=[id number] No. of containers..01 ThinPrep Vial Resulting Agency Comment [facility] [address] [facility] Jason W [id number] Joyce Saldivar MD LAB - PATHOLOGY/CYTO LOGY ORDERABLES [facility] ACCOUNT BILL [address] [place] [address] * US PELVIS WITH TRANSVAG NON OB (07/01/2017 10:57 AM GAME PRODUCER) Anatomical Region Laterality Modality Pelvis Ultrasound 07/01/2017 11:0 6 AM GAME PRODUCER Impressions 07/01/2017 11:12 AM GAME PRODUCER RIGHT FOLLICLE CYSTS, OTHERWISE UNREMARKABLE. Edited by Jennifer Stockton on 07/01/2017 11:12 AM Narrative 07/01/2017 11:12 AM GAME PRODUCER ULTRASOUND PELVIS TRANSABDOMINAL ULTRASOUND PELVIS TRANSVAGINAL ULTRASOUND [...] LIPID PROFILE W TCHOL/HDL (06/17/2017 10:22 AM GAME PRODUCER) Cholesterol 185 <200 mg/dL [facility] ACCOUNT BILL Triglycerides 39 <150 mg/dL [facility] ACCOUNT BILL HDL Cholesterol 83 >40 mg/dL [facility] ACCOUNT BILL VLDL Calculated 8 <=30 mg/dL [facility] ACCOUNT BILL LDL Calculated 94 <130 mg/dL [facility] ACCOUNT BILL Comment:LDL/HDL RATIO BLOOD ([facility]) 1.1 <5.0 Cholesterol/HDL Ratio 2.2 <4.5 [facility] ACCOUNT BILL Comment:FASTING Blood BLOOD SPECIMEN / Unknown 06/17/2017 10:22 AM GAME PRODUCER 06/17/2017 Narrative Resulting Agency Comment [facility] [id number] [place] [address] [place] [phone] Tracey Patel MD [facility] Organization Address City/State/ZIP Co de Phone Number [facility] ACCOUNT BILL [address] [place] [address] * (ABNORMAL) VITAMIN D 25-HYDROXY (06/17/2017 10:22 AM GAME PRODUCER) Vitamin D, 25 Hydroxy 22.79(L) 30 - 100 ng/mL [facility] ACCOUNT BILL Comment: Vitamin D Status: Deficiency <20 ng/mL Insufficiency 20-30 ng/mL Sufficiency 30-100 ng/mL Toxicity >100 ng/mL FASTING Blood BLOOD SPECIMEN / Unknown 06/17/2017 10:22 AM GAME PRODUCER 06/17/2017 Narrative Resulting Agency Comment [facility] [address] [facility] [phone] Tracey Patel MD LAB - CHEMISTRY LEXX [place] Organization Address City/State/ZIP Co de Phone Number [facility] ACCOUNT BILL [address] [place] [address] * (ABNORMAL) CBC W AUTO DIFFERENTIAL (06/17/2017 10:22 AM GAME PRODUCER) WBC 4.1(L) 4.4 - 10.7 x10E9/L [facility] [...] x10E9/L [facility] ACCOUNT BILL Comment:MPV FL BLOOD ([facility]) 1 2.4 fl 9.4-12.9 Granulocytes % 60.9 [...] BLOOD SPECIMEN / Unknown 06/17/2017 10:22 AM GAME PRODUCER 06/17/2017 Narrative Resulting Agency Comment [facility] [address] [place] [phone] Tracey Patel MD LAB - HEMATOLOGY ORD ERABLES [facility] ACCOUNT BILL [address] [place] [address] * (ABNORMAL) COMPREHENSIVE METABOLIC PANEL (06/17/2017 10:22 AM GAME PRODUCER) Glucose 79 74 - 106 mg/dL [facility] [...] BLOOD SPECIMEN / Unknown 06/17/2017 10:22 AM GAME PRODUCER 06/17/2017 Narrative Resulting Agency Comment [place] [address] [place] [place] [phone] Tracey Patel MD LAB - CHEMISTRY LEXX RAMIREZ [facility] ACCOUNT BILL [address] [place] [address] * TSH (06/17/2017 10:22 AM GAME PRODUCER) TSH 2.85 0.358 - 3.740 uIU/mL [facility] ACCOUNT BILL Comment:FASTING Blood BLOOD SPECIMEN / Unknown 06/17/2017 10:22 AM GAME PRODUCER 06/17/2017 Narrative Resulting Agency Comment [place] [address] [place] [phone] Tracey Patel MD LAB - CHEMISTRY LEXX RAMIREZ Performing Organization Address City/[facility]/ZIP Co de Phone Number [facility] ACCOUNT BILL [address] [place] [address] * RHEUMATOID FACTOR BLOOD QUANTITATIVE (06/17/2017 10:20 AM GAME PRODUCER) Rheumatoid Factor <10 <15 IU/mL [facility] ACCOUNT BILL Comment:FASTING Blood BLOOD SPECIMEN / Unknown 06/17/2017 10:20 AM GAME PRODUCER 06/17/2017 Narrative Resulting Agency Comment [facility] [address] [facility] [phone] Tracey Patel MD LAB - CHEMISTRY LEXX RAMIREZ [facility] ACCOUNT BILL [address] [place] [address] * C-REACTIVE PROTEIN (06/17/2017 10:20 AM GAME PRODUCER) C-Reactive Protein <0.29 <0.30 mg/dL [facility] ACCOUNT BILL Comment:FASTING Blood BLOOD SPECIMEN / Unknown 06/17/2017 10:20 AM GAME PRODUCER 06/17/2017 Narrative Resulting Agency Comment [facility] [address] [facility] [phone] Tracey Patel MD LAB - CHEMISTRY LEXX RAMIREZ [facility] ACCOUNT BILL [address] [place] [address] * GEO BLOOD SCREEN W/REFLEX TITER (06/17/2017 10:20 AM GAME PRODUCER) GEO Negative Negative [facility] ACCOUNT BILL Comment:FASTING Blood BLOOD SPECIMEN / Unknown 06/17/2017 10:20 AM GAME PRODUCER 06/17/2017 Narrative Resulting Agency Comment [facility] [address] [facility] [phone] Tracey Patel MD LAB - CHEMISTRY LEXX RAMIREZ Performing Organization Address City/[facility]/ZIP Co de Phone Number [facility] ACCOUNT BILL [address] [place] [address] * URINALYSIS - POINT OF CARE (06/17/2017) Clarity UA POCT clear Color UA POCT yellow Leukocyte UA negative Negative Nitrite UA POCT negative Negative Urobilinogen UA 0.2 0.1 - 1.0 Protein UA POCT negative Negative pH UA 6.0 5.0 - 8.0 pH units Blood UA negative Negative Specific [place] UA POCT 1.010 1.002 - 1.030 Ketone UA negative Negative Bilirubin UA POCT negative Negative Glucose UA negative Negative Urine URINE / Unknown 06/17/2017 Tracey Patel MD LAB - POINT OF CARE ORDERABLES Care Teams Gas Engine Repairer Relationship Specialty Start Date End Date Tracey Patel MD PCP - General Family Medicine 06/13/17
--- OUTSIDE RECORDS SUMMARY | 2024-09-09 00:42 | XMS_ITS | Encounter Summary ---
Author Organization [facility] Address [address] [place] [address] Care Team Providers Care Commission Specialist Name Role Phone Roxanna Acosta MD Primary Care Provider [phone] Encounter Details Date Type Department Care Team (Late st Contact Info) Description 12/09/2005 Orders Only [facility] Primary Care - [address] [place] [address] Barak Greenberg MD [address] [facility] [address] [place] [address] Social History Tobacco Use Types Packs/Day Years Used Date Smoking Tobacco: Never Assessed Comments Unknown Sex and Gender Information Value Date Recorded Sex Assigned at Not on file Legal Sex Female 4:02 AM CREDIT CHARGE AUTHORIZER Gender Identity Not on file Sexual Orientation Not on file documented as of this encounter Progress Notes * Barak Greenberg MD - 05/13/2008 4:06 AM CDT TIME:09:47 am PATIENT`S HOME PHONE: PATIENT`S WORK PHONE: PATIENT`S INSURANCE: [employer] WHO TOOK THE CALL: [place] GENERAL INFORMATION PATIENT STATUS: Established Patient. LAST VISIT: 02-15-04 PCP: rian. ALTERNATIVE PHONE NUMBER: [phone] WHO CALLED: Patient called. CURRENT ALLERGY LIST: [facility] NUMBER: [phone] PROBLEMS: pt daughter had a staph infection [...] SPECIALTY REFERRAL: PODIATRY Dr. Mendez Panda ph: [phone] fax: [phone]. Electronically Signed by: Barak Greenberg MD on Friday, December 09, 2005 documented in this encounter Plan of Treatment Upcoming Encounters Date Type Department Care Team (Late st Contact Info) Description 10/27/2024 10:00 AM CDT Office Visit [facility] Oncology and Hematology [facility] [address] [facility] [address] [place] [address] Michele Smith MD [address] [facility] [address] [place] [address] documented as of this encounter Visit Diagnoses Not on filedocumented in this encounter Care Teams Commission Specialist Relationship Specialty Start Date End Date Roxanna Acosta MD PCP - General Family Practice 02/19/12 documented as of this encounter
--- OUTSIDE RECORDS SUMMARY | 2024-09-09 00:42 | XMS_ITS | Encounter Summary ---
Author Organization [facility] Address [address] [place] [address] Care Team Providers Care Music Video Director Name Role Phone Roxanna Acosta MD Primary Care Provider [phone] Encounter Details Date Type Department Care Team (Late st Contact Info) Description 10/18/2002 Outpatient Historical [facility] Primary Care - [address] [place] [address] Otf Talavera Social History Tobacco Use Types Packs/Day Years Used Date Smoking Tobacco: Never Assessed Comments Unknown Sex and Gender Information Value Date Recorded Sex Assigned at Not on file Legal Sex Female 4:02 AM FINANCIAL SERVICES EDUCATION CONSULTANT Gender Identity Not on file Sexual Orientation Not on file documented as of this encounter Plan of Treatment Upcoming Encounters Date Type Department Care Team (Late st Contact Info) Description 10/27/2024 10:00 AM CDT Office Visit [facility] Oncology and Hematology - [place] [address] [facility] [address] [place] [address] Michele Smith MD [address] [facility] [address] [place] [address] documented as of this encounter Visit Diagnoses Not on filedocumented in this encounter Care Teams Music Video Director Relationship Specialty Start Date End Date Roxanna Acosta MD PCP - General Family Practice 02/19/12 documented as of this encounter
--- OUTSIDE RECORDS SUMMARY | 2024-09-09 00:42 | XMS_ITS | Encounter Summary ---
Author Organization [facility] Address [address] [place] [address] Care Team Providers Care Verification Specialist Name Role Phone Roxanna Acosta MD Primary Care Provider Encounter Details Date Type Department Care Team (Late st Contact Info) Description 05/19/2012 Chart Note [facility] Services [address] [place] [address] Kyleigh Davis, Physical Therapist Social History Tobacco Use Types Packs/Day Years Used Date Smoking Tobacco: Never Smokeless Tobacco: Never Alcohol Use Standard Drinks/Week Comments No 0 (1 standard drink = 0.6 oz pur e alcohol) Comments Unknown Sex and Gender Information Value Date Recorded Sex Assigned at Not on file Legal Sex Female 4:02 AM SURGERY CENTER ADMINISTRATOR Gender Identity Not on file Sexual [...] you for this referral. Kyleigh Davis P.T. [facility] Therapy Services [address] [place] [address]. [address] [place] [address] documented in this encounter Plan of Treatment Upcoming Encounters Date Type Department Care Team (Late st Contact Info) Description 10/27/2024 10:00 AM CDT Office Visit [facility] Oncology and Hematology - [place] [address] [facility] [address] [place] [id number] Michele Smith MD [address] [facility] [address] [place] [address] documented as of this encounter Visit Diagnoses Not on filedocumented in this encounter Care Teams Verification Specialist Relationship Specialty Start Date End Date Roxanna Acosta MD PCP - General Family Practice 02/19/12 documented as of this encounter
--- OUTSIDE RECORDS SUMMARY | 2024-09-09 00:42 | XMS_ITS | Encounter Summary ---
Author Organization [facility] Address [address] [place] [address] Care Team Providers Care Tufting Supervisor Name Role Phone Roxanna Acosta MD Primary Care Provider [phone] Encounter Details Date Type Department Care Team (Late Contact Info) Description 12/09/2005 Outpatient Historical [facility] Primary Care - [address] [place] [address] Barak Greenberg MD [address] [facility] [address] [place], [place] [id number] Social History Tobacco Use Types Packs/Day Years Used Date Smoking Tobacco: Never Assessed Comments Unknown Sex and Gender Information Value Date Recorded Sex Assigned at Not on file Legal Sex Female 4:02 AM CAREER MANAGER Gender Identity Not on file Sexual Orientation Not on file documented as of this encounter Last Filed Vital Signs Vital Sign Reading Time Taken Comments Blood Pressure 120/60 12/09/2005 3:30 PM CDT Pulse - - Temperature 36.4 C (97.5 F) 12/09/2005 3:30 PM CDT Respiratory Rate - - Oxygen [...] Health Center Oncology and Hematology - [place] [address] [place], [place] [address] [place] [address] Michele Smith MD [address] [facility] [address] [place] [address] documented as of this encounter Visit Diagnoses Not on filedocumented in this encounter Care Teams Tufting Supervisor Relationship Specialty Start Date End Date Roxanna Acosta MD PCP - General Family Practice 02/19/12 documented as of this encounter
--- OUTSIDE RECORDS SUMMARY | 2024-09-09 00:42 | XMS_ITS | Encounter Summary ---
Author Organization [facility] Address [address] [place] [address] Care Team Providers Care Corporate Consultant Name Role Phone Roxanna Acosta MD Primary Care Provider Encounter Details Date Type Department Care Team (Latest Contact Info) Description 05/20/2007 Outpatient Historical [facility] CORPORATE AUDITOR - [address] [place] [address] Enrique Mckinney MD 6[address] [facility] [address] [place] [address] State, Incidental (Primary Dx) Social History Tobacco Use Types Packs/Day Years Used Date Smoking Tobacco: Never Assessed Comments Unknown Sex and Gender Information Value Date Recorded Sex Assigned at Not on file Legal Sex Female 4:02 AM MANUFACTURING ENGINEER SUPERVISOR Gender Identity Not on file Sexual Orientation Not on file documented as of this encounter Plan of Treatment Upcoming Encounters Date Type Department Care Team (Late st Contact Info) Description 10/27/2024 10:00 AM CDT Office Visit [facility] Oncology and Hematology - Farz[place] [address]anc[address] [facility] [address] [place] [address] Michele Smith MD 2227 [facility] [address] [place] [address] documented as of this encounter [...] MD HEMATOLOGY ORDERABLES Edited Performing Organization Address City/[facility] Co de Phone Number INTERFACE SYSTEM Refer [...] MD HEMATOLOGY ORDERABLES Edited Performing Organization Address [facility] Phone Number INTERFACE SYSTEM Refer to clinic/hospital department * HIV ANTIBODY W/REFLX CONFIRMATION (05/20/2007 4:45 PM CDT) HIV-1 AND 2 ABS NON-REACTI VE NON-REACT BREEZY INTERFACE SYSTEM Comment: Effective January 05, 2007, HIV 1/2 Antibody Screen with Reflexed Confirmati on has replaced HIV-1 Antibody Screen. HIV-1 Antibody Screen is no longer offered due to lack of available kits from the dye colorist formulator. A NON-REACTIVE HIV 1/2 ANTIBODY RESULT DOES NOT EXCLUDE HIV INFECTION SINCE THE TIME FRAME FOR SEROCONVERSION IS VARIABLE. IF ACUTE HIV INFECTION IS SUSPECTED, ANTIBODY RETESTING AND NUCLEIC ACID AMPLIFICATION (HIV DNA/RNA) TESTING IS RECOMMENDED. Lab test performed by: [facility] [address] [place] [address] ALLIE CARDENAS MD 05/20/2007 4:45 PM CDT Enrique Mckinney MD CHEMISTRY ORDERABLES Edited Performing Organization Address [facility] Phone Number INTERFACE SYSTEM Refer to clinic/hospital department * HEPATITIS B SURFACE ANTIGEN (05/20/2007 4:45 PM CDT) HEPATITIS B SURFACE AG NON-REACTI VE NON-REACT BREEZY INTERFACE SYSTEM Comment: Lab test performed [facility]: [facility] [id number] ALLIE CARDENAS MD 05/20/2007 4:45 PM CDT Enrique Mckinney MD CHEMISTRY ORDERABLES Edited Performing Organization Address [facility] Number INTERFACE SYSTEM Refer to clinic/hospital department * RUBELLA IGG (05/20/2007 4:45 PM CDT) RUBELLA IGG 2.57 EIA Value INTERFAC E SYSTEM Comment: EIA VALUE EXPLANATION OF TEST RESULTS --------- <0.91 NEGATIVE - NO RUBELLA IGG ANTIBODY DETECTED. 0.91 - 1.09 EQUIVOCAL > OR = 1.10 POSITIVE - RUBELLA IGG ANTIBODY DETECTED. THE PRESENCE OF RUBELLA IGG ANTIBODY SUGGESTS IMMUNIZATION OR PAST OR CURRENT INFECTION WITH RUBELLA VIRUS. Lab test performed by: [facility] [id number] ALLIE CARDENAS MD 05/20/2007 4:45 PM CDT us Enrique Mckinney MD CHEMISTRY ORDERABLES Edited Performing Organization Address [facility] Phone Number INTERFACE SYSTEM Refer to clinic/hospital department * RPR (05/20/2007 4:45 PM CDT) RPR NON-REACTI VE NON-REACT BREEZY INTERFACE SYSTEM Comment: Lab test performed by: [facility] [address] [place] [id number] ALLIE CARDENAS MD 05/20/2007 4:45 PM CDT us Enrique Mckinney MD CHEMISTRY ORDERABLES Edited INTERFACE SYSTEM Refer to clinic/hospital department documented in this encounter Visit Diagnoses Diagnosis state, incidental- Primary documented in this encounter Care Teams Corporate Consultant Relationship Specialty Start Date End Date Roxanna Acosta MD PCP - General Family Practice 02/19/12 documented as of this encounter
--- OUTSIDE RECORDS SUMMARY | 2024-09-09 00:42 | XMS_ITS | Referral Summary ---
Author Organization [facility] Address [address] [place] [address] Care Team Providers Care Supervisor Capacitor Processing Name Role Phone Tracey Patel MD Primary Care Provider [phone] Source Comments [facility],non-owned Affiliates and Associated Physician Practices is amultiple site organization consisting of ambulatory clinics and hospital sitesin [place], [place], [place] and [place]. This disclosure is being madepursuant to the Care Everywhere program and may not contain all information available regarding this patient. Last updated 18.[facility] Allergies No known active allergies Medications * [...] MAMMO BILAT DIAGNOSTIC Routine 07/17/2017 10:10 AM EMPLOYEE DEVELOPMENT MANAGER Left breast lump PAP IG LB +HPV APTIMA REFLEX 16,18/45 Routine 07/09/2017 3:07 PM EMPLOYEE DEVELOPMENT MANAGER Well woman exam with routine gynecological exam Screening for HPV (human papillomavirus) COMPREHENSIVE METABOLIC PANEL Routine 06/17/2017 10:22 AM EMPLOYEE DEVELOPMENT MANAGER Annual physical exam LIPID PROFILE W TCHOL/HDL Routine 06/17/2017 10:22 AM EMPLOYEE DEVELOPMENT MANAGER Annual physical exam from Last 3 Months or Most Recently Relevant to Health Maintenance Results * MAMMO DIAG DIRECT DIGITAL IMAGE BILA [id number] (07/17/2017 10:10 AM EMPLOYEE DEVELOPMENT MANAGER) Anatomical Region Laterality Modality Bilateral Mammography 07/17/2017 11:1 7 AM EMPLOYEE DEVELOPMENT MANAGER Narrative 07/17/2017 11:24 AM EMPLOYEE DEVELOPMENT MANAGER DIGITAL BILATERAL DIAGNOSTIC MAMMOGRAMS WITH CAD CORRELATION [...] if suspicious findings are present clinically. An [employer] Certified Facility. [facility] utilize TabbedOut as a reminder system to notify patients of their next recommended mammogram. Edited by Jennifer Stockton on 07/17/2017 11:23 AM Joyce Saldivar MD MAMMO ORDERABLES * (ABNORMAL) PAP IG LB +HPV APTIMA REFLEX 16,18/45 (07/09/2017 3:07 PM EMPLOYEE DEVELOPMENT MANAGER) Diagnosis (A) [facility] ACCOUNT BILL Comment: EPITHELIAL [...] UTERINE CERVIX / Unknown 07/09/2017 3:07 PM EMPLOYEE DEVELOPMENT MANAGER 07/09/2017 Narrative [facility] ACCOUNT BILL - 07/15/2017 5:10 PM EMPLOYEE DEVELOPMENT MANAGER Source.............Cervix LMP / Prev Treat...[id number]=[id number] No. of containers..01 ThinPrep Vial Resulting Agency Comment [facility] [address] [place] [phone] Joyce Saldivar MD LAB - PATHOLOGY/CYTO LOGY ORDERABLES [facility] ACCOUNT BILL [address] [place] [address] * LIPID PROFILE W TCHOL/HDL (06/17/2017 10:22 AM EMPLOYEE DEVELOPMENT MANAGER) Cholesterol 185 <200 mg/dL [facility] ACCOUNT BILL [...] BLOOD SPECIMEN / Unknown 06/17/2017 10:22 AM EMPLOYEE DEVELOPMENT MANAGER 06/17/2017 Narrative Resulting Agency Comment [facility] [address] [place] [phone] Tracey Patel MD LAB - CHEMISTRY LEXX RAMIREZ [facility] ACCOUNT BILL [address] [place] [address] * (ABNORMAL) COMPREHENSIVE METABOLIC PANEL (06/17/2017 10:22 AM EMPLOYEE DEVELOPMENT MANAGER) Glucose 79 74 - 106 mg/dL [facility] [...] BLOOD SPECIMEN / Unknown 06/17/2017 10:22 AM EMPLOYEE DEVELOPMENT MANAGER 06/17/2017 Narrative Resulting Agency Comment [facility] [place] [address] [place] [phone] Tracey Patel MD LAB - CHEMISTRY LEXX RAMIREZ [facility] Organization Address City/State/ZIP Co de Phone Number [facility] ACCOUNT BILL [address] [place] [address] from Last 3 Months or Most Recently Relevant to Health Maintenance Care Teams Supervisor Capacitor Processing Relationship Specialty Start Date End Date Tracey Patel MD PCP - General Family Medicine 06/13/17
--- OUTSIDE RECORDS SUMMARY | 2024-09-09 00:42 | XMS_ITS | Encounter Summary ---
Author Organization [facility] Address [address] [place] [address] Care Team Providers Care Manager Non Profit Name Role Phone Roxanna Acosta MD Primary Care Provider Encounter Details Date Type Department Care Team (Late Contact Info) Description 09/11/2007 Outpatient Historical [facility] NAVAL SURFACE FIRE SUPPORT PLANNER - [address] [place] [address] Enrique Mckinney MD 1 [facility] [address] [place] [phone] Social History Tobacco Use Types Packs/Day Years Used Date Smoking Tobacco: Never Assessed Comments Unknown Sex and Gender Information Value Date Recorded Sex Assigned at Not on file 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 Sex 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 Gender Identity Not on file Sexual Orientation Not on file documented as of this encounter Plan of Treatment Upcoming Encounters Date Type Department Care Team (Late st Contact Info) Description 10/27/2024 10:00 AM CDT Office Visit [facility] Oncology and Hematology - Farzad [address] Manc[address] [facility] [address] [place] [address] Michele Smith MD 2227 [facility] [address] [place] [address] documented as of this encounter Visit Diagnoses Not on filedocumented in this encounter Care Teams Manager Non Profit Relationship Specialty Start Date End Date Roxanna Acosta MD PCP - General Family Practice 02/19/12 documented as of this encounter
--- OUTSIDE RECORDS SUMMARY | 2024-09-09 00:42 | XMS_ITS | Encounter Summary ---
Author Organization [facility] Address [address] [place] [address] Care Team Providers Care Weed Inspector Name Role Phone Roxanna Acosta MD Primary Care Provider Encounter Details Date Type Department Care Team (Late Contact Info) Description 04/22/2007 Outpatient Historical [facility] LUBRICATION TECHNICIAN - [address] [place] [address] Enrique Mckinney MD 1 [facility] [address] [place] [address] Social History Tobacco Use Types Packs/Day Years Used Date Smoking Tobacco: Never Assessed Comments Unknown Sex and Gender Information Value Date Recorded Sex Assigned at Not on file 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 Sex Female 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 OPERATOR Gender Identity Not on file Sexual Orientation Not on file documented as of this encounter Plan of Treatment Upcoming Encounters Date Type Department Care Team (Late st Contact Info) Description 10/27/2024 10:00 AM CDT Office Visit [facility] Oncology and Hematology - Farzad [address] T[address] Manc[address] [facility] [address] [place] [address] Michele Smith MD 2227 [facility] [address] [place] [address] documented as of this encounter Visit Diagnoses Not on filedocumented in this encounter Care Teams Weed Inspector Relationship Specialty Start Date End Date Roxanna Acosta MD PCP - General Family Practice 02/19/12 documented as of this encounter
--- OUTSIDE RECORDS SUMMARY | 2024-09-09 00:42 | XMS_ITS | Encounter Summary ---
Author Organization [facility] Address 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 HEALTH MANAGER Gender Identity Not on file Sexual Orientation Not on file documented as of this encounter Plan of Treatment Upcoming Encounters Date Type Department Care Team (Late st Contact Info) Description 10/27/2024 10:00 AM CDT Office Visit [facility] Oncology and Hematology - Far[place] [facility] [address] [place] [address] Michele Smith MD 2227 [facility] [address] [place] [address] documented as of this encounter Visit Diagnoses Diagnosis First-degree perineal laceration, with delivery- Primary documented in this encounter Care Teams Polymer Chemist Relationship Specialty Start Date End Date Roxanna Acosta MD PCP - General Family Practice 02/19/12 documented as of this encounter
--- OUTSIDE RECORDS SUMMARY | 2024-09-09 00:42 | XMS_ITS | Encounter Summary ---
Author Organization [facility] Address [address] [place] [address] Care Team Providers Care Rn Managed Care Name Role Phone Roxanna Acosta MD Primary Care Provider [phone] Encounter Details Date Type Department Care Team (Late Contact Info) Description 10/05/2007 Outpatient Historical [facility] SHUCKER - Medical [place] B [facility] [address] [facility] [address] [address] Epifanio Jones MD NO ADDRESS ON FILE Social History Tobacco Use Types Packs/Day Years Used Date Smoking Tobacco: Never Assessed Comments Unknown Sex and Gender Information Value Date Recorded Sex Assigned at Not on file 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 Sex Female 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 Gender Identity Not on file Sexual Orientation Not on file documented as of this encounter Plan of Treatment Upcoming Encounters Date Type Department Care Team (Late Contact Info) Description 10/27/2024 10:00 AM CDT Office Visit [facility] Oncology and Hematology - Farzad [facility] [facility] [address] [place] [address] Michele Smith MD 2[address] [facility] [address] [place] [address] documented as of this encounter Visit Diagnoses Not on filedocumented in this encounter Care Teams Rn Managed Care Relationship Specialty Start Date End Date Roxanna Acosta MD PCP - General Family Practice 02/19/12 documented as of this encounter
--- OUTSIDE RECORDS SUMMARY | 2024-09-09 00:42 | XMS_ITS | Encounter Summary ---
Author Organization [facility] Address [address] [place] [address] Care Team Providers Care Cut Off Saw Grader Name Role Phone Roxanna Acosta MD Primary Care Provider Encounter Details Date Type Department Care Team (Late Contact Info) Description 09/08/2007 Outpatient Historical [facility] GAS APPLIANCE INSTALLER - [address] [place] [address] Enrique Mckinney MD 1 [facility] [address] [place] [address] Social History Tobacco Use Types Packs/Day Years Used Date Smoking Tobacco: Never Assessed Comments Unknown Sex and Gender Information Value Date Recorded Sex Assigned at Not on file Legal Sex Female 4: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 COMMISSIONED POLICE 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 Gender Identity Not on file Sexual Orientation Not on file documented as of this encounter Plan of Treatment Upcoming Encounters Date Type Department Care Team (Late st Contact Info) Description 10/27/2024 10:00 AM CDT Office Visit [facility] Oncology and Hematology - Farzad [address] T[address] Manc[address] [facility] [address] [place] [address] Michele Smith MD 2227 [facility] [address] [place] [address] documented as of this encounter Visit Diagnoses Not on filedocumented in this encounter Care Teams Cut Off Saw Grader Relationship Specialty Start Date End Date Roxanna Acosta MD PCP - General Family Practice 02/19/12 documented as of this encounter
--- OUTSIDE RECORDS SUMMARY | 2024-09-09 00:42 | XMS_ITS | Encounter Summary ---
Author Organization [facility] Address [address] [place] [address] Care Team Providers Care Dinkey Operator Slag Name Role Phone Roxanna Acosta MD Primary Care Provider Encounter Details Date Type Department Care Team (Late Contact Info) Description 05/20/2007 Outpatient Historical [facility] MAILING MACHINE OPERATOR - [address] [place] [address] Enrique Mckinney MD 1 [facility] [address] [place] [phone] Social History Tobacco Use Types Packs/Day Years Used Date Smoking Tobacco: Never Assessed Comments Unknown Sex and Gender Information Value Date Recorded Sex Assigned at Not on file 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 Gender Identity Not on file Sexual Orientation Not on file documented as of this encounter Plan of Treatment Upcoming Encounters Date Type Department Care Team (Late st Contact Info) Description 10/27/2024 10:00 AM CDT Office Visit [facility] Oncology and Hematology - Farzad [address] Tashia Mancini [facility] 200 [place] [address] Michele Smith MD 2227 [facility] [address] [place] [address] documented as of this encounter Visit Diagnoses Not on filedocumented in this encounter Care Teams Dinkey Operator Slag Relationship Specialty Start Date End Date Roxanna Acosta MD PCP - General Family Practice 02/19/12 documented as of this encounter
--- OUTSIDE RECORDS SUMMARY | 2024-09-09 00:42 | XMS_ITS | Referral Summary ---
Author Organization [place] [address] [place] Address [address] [place] [address] Care Team Providers Care Surgeon Chief Name Role Phone Camille Costello Primary Care Provi roxanne Allergies Active Allergy Reactions Criticality Noted Date Comments Benadryl Decongestant Other (See comments) Low 01/03 Feel bad physically and mentally Medications dextroamphetami ne-amphetamine XR (ADDERALL XR) 30 mg 24 hr capsule Take 1 capsule (30 mg total) by mouth big data admin before breakfast 1 Active ferrous sulfate ER [...] on file Legal Sex Female 7:01 PM BEE TENDER Gender Identity Not on file Sexual Orientation [...] Treatment Not on file Insurance CHOICE PLUS [facility] Care Teams Surgeon Chief Relationship Specialty Start Date End Date Camille Costello DO [address] [place] [id number] PCP - General Family Medicine 09/27/21
--- OUTSIDE RECORDS SUMMARY | 2024-09-09 00:42 | XMS_ITS | Encounter Summary ---
Author Organization [facility] Address [address] [place] [address] Care Team Providers Care Filament Tester Name Role Phone Roxanna Acosta MD Primary [...] on file Legal Sex Female 4:02 AM TELEGRAPH OFFICE TELEPHONE CLERK Gender Identity Not on file Sexual Orientation Not on file documented as of this encounter Plan of Treatment Upcoming Encounters Date Type Department Care Team (Late st Contact Info) Description 10/27/2024 10:00 AM CDT Office Visit [facility] Oncology and Hematology - Farzad [address] Mancini [facility] 200 [place] [address] Michele Smith MD 2227 [facility] [address] [place] [address] documented as of this encounter Visit Diagnoses Diagnosis Other current maternal conditions classifiable elsewhere, antepartum- Primary documented in this encounter Care Teams Filament Tester Relationship Specialty Start Date End Date Roxanna Acosta MD PCP - General Family Practice 02/19/12 documented as of this encounter
--- OUTSIDE RECORDS SUMMARY | 2024-09-09 00:42 | XMS_ITS | Encounter Summary ---
Author Organization [facility] Address [address] [place] [address] Care Team Providers Care Curtain Framer Name Role Phone Roxanna Acosta MD Primary Care Provider Encounter Details Date Type Department Care Team (Latest Contact Info) Description 10/07/2005 Outpatient Historical [facility] Cecil Schofield MD [address] [facility] [address] [place] [phone] Kelechi Dixon MD NO ADDRESS ON FILE Other Specified Complication, Antepartum (Primary Dx) Social History Tobacco Use Types Packs/Day Years Used Date Smoking Tobacco: Never Assessed Comments Unknown Sex and Gender Information Value Date Recorded Sex Assigned at Not on file Legal Sex Female 4:02 AM ACCOUNTS CLERK Gender Identity Not on file Sexual Orientation Not on file documented as of this encounter Plan of Treatment Upcoming Encounters Date Type Department Care Team (Late st Contact Info) Description 10/27/2024 10:00 AM CDT Office Visit [facility] Oncology and Hematology - Farzad [address] [facility] [place] [address] [place] [address] Michele Smith MD 2227 [facility] [address] [place] [address] documented as of this encounter Procedures Procedure Name Priority Date/Time Associated Diagnosis Comments CBC WITH DIFFERENTIAL Routine 10/07/2005 2:54 PM ACCOUNTS CLERK CBC WITH DIFFERENTIAL Routine 10/07/2005 2:54 PM ACCOUNTS CLERK documented in this encounter Results * (ABNORMAL) CBC WITH DIFFERENTIAL (10/07/2005 2:54 PM ACCOUNTS CLERK) NEUTROPHILS 72(H) 45 - 70 % INTERFAC [...] 0.20 K/uL INTERFACE SYSTEM 10/07/2005 2:54 PM ACCOUNTS CLERK Kelechi Dixon MD HEMATOLOGY ORDERABLES Final Result INTERFACE SYSTEM Refer to clinic/hospital department * (ABNORMAL) CBC WITH DIFFERENTIAL (10/07/2005 2:54 PM ACCOUNTS CLERK) Pathologist [facility] WBC 8.9 4.0 - 9.8 [...] 12.4 fL INTERFACE SYSTEM 10/07/2005 2:54 PM ACCOUNTS CLERK us Kelechi Dixon MD HEMATOLOGY ORDERABLES Final Result INTERFACE SYSTEM Refer to clinic/hospital department documented in this encounter Visit Diagnoses Diagnosis Other specified complication, antepartum(646.83)- Primary Other specified complication, antepartum documented in this encounter Care Teams Curtain Framer Relationship Specialty Start Date End Date Roxanna Acosta MD PCP - General Family Practice 02/19/12 documented as of this encounter
--- OUTSIDE RECORDS SUMMARY | 2024-09-09 00:42 | XMS_ITS | Encounter Summary ---
Author Organization [facility] Address [address] [place] [address] Care Team Providers Care Food Preparer Name Role Phone Roxanna Acosta MD Primary Care Provider Encounter Details Date Type Department Care Team (Latest Contact Info) Description 08/17/2007 Outpatient Historical [facility] Naveed Means MD [address] [address] [place] [address] Other Specified Complication, Antepartum Social History Tobacco Use Types Packs/Day Years Used Date Smoking Tobacco: Never Assessed Comments Unknown Sex and Gender Information Value Date Recorded Sex Assigned at Not on file Legal Sex Female 4:02 AM RN MIDWIFE Gender Identity Not on file Sexual Orientation Not on file documented as of this encounter Plan of Treatment Upcoming Encounters Date Type Department Care Team (Late st Contact Info) Description 10/27/2024 10:00 AM CDT Office Visit [facility] Oncology and Hematology - Farzad [address] [facility] [address] [place] [address] Michele Smith MD 2227 [facility] [address] [place] [address] documented as of this encounter Visit Diagnoses Diagnosis Other specified complication, antepartum(646.83) Other specified complication, antepartum documented in this encounter Care Teams Food Preparer Relationship Specialty Start Date End Date Roxanna Acosta MD PCP - General Family Practice 02/19/12 documented as of this encounter
--- OUTSIDE RECORDS SUMMARY | 2024-09-09 00:42 | XMS_ITS | Encounter Summary ---
Author Organization [facility] Address [address] [place] [address] Care Team Providers Care Field Control Inspector Name Role Phone Roxanna Acosta MD Primary Care Provider Encounter Details Date Type Department Care Team (Latest Contact Info) Description 07/16/2007 Outpatient Historical [facility] Enrique Mckinney MD [address] [facility] [address] [facility] [address] Naveed Means MD [address] [place] [address] [address] [place] [address] Other Specified Complication, Antepartum Social History Tobacco Use Types Packs/Day Years Used Date Smoking Tobacco: Never Assessed Comments Unknown Sex and Gender Information Value Date Recorded Sex Assigned at Not on file Legal Sex Female 4:02 AM AUTOMATION TENDER Gender Identity Not on file Sexual Orientation Not on file documented as of this encounter Plan of Treatment Upcoming Encounters Date Type Department Care Team (Late st Contact Info) Description 10/27/2024 10:00 AM CDT Office Visit [facility] Oncology and Hematology - [place] [address] [facility] [address] [place] [address] Michele Smith MD [address] [facility] [address] [place] [address] documented as of this encounter Visit Diagnoses Diagnosis Other specified complication, antepartum(646.83) Other specified complication, antepartum documented in this encounter Care Teams Field Control Inspector Relationship Specialty Start Date End Date Roxanna Acosta MD PCP - General Family Practice 02/19/12 documented as of this encounter
--- OUTSIDE RECORDS SUMMARY | 2024-09-09 00:42 | XMS_ITS | Encounter Summary ---
Author Organization [facility] Address [address] [place] [address] Care Team Providers Care Agent Licensing Clerk Name Role Phone Roxanna Acosta MD Primary Care Provider [phone] Encounter Details Date Type Department Care Team (Late st Contact Info) Description 05/01/2006 Orders Only [facility] Primary Care - [facility] [address] [place] [address] [address] [place] [address] Barak Greenberg MD [address] [facility] [address] [place] [address] Social History Tobacco Use Types Packs/Day Years Used Date Smoking Tobacco: Never Assessed Comments Unknown Sex and Gender Information Value Date Recorded Sex Assigned at Not on file 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 Sex Female 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 SALON ASSISTANT Gender Identity Not on file Sexual Orientation Not on file documented as of this encounter Progress Notes * Barak Greenberg MD - 05/17/2008 6:57 PM CDT [facility] BARAK GREENBERG MD [address] [place] [address] May 01, 2006 ASHOK JIMENEZ [address] [place] [id number] ASHOK JIMENEZ has been under our care [...] Hospital Oncology and Hematology - [place] [address] [facility] [address] [place] [address] Michele Smith MD [address] [facility] [address] [place] [address] documented as of this encounter Visit Diagnoses Not on filedocumented in this encounter Care Teams Agent Licensing Clerk Relationship Specialty Start Date End Date Roxanna Acosta MD PCP - General Family Practice 02/19/12 documented as of this encounter
--- OUTSIDE RECORDS SUMMARY | 2024-09-09 00:42 | XMS_ITS | Encounter Summary ---
Author Organization [facility] Address 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 Gender Identity Not on file Sexual Orientation Not on file documented as of this encounter Plan of Treatment Upcoming Encounters Date Type Department Care Team (Late Contact Info) Description 10/27/2024 10:00 AM CDT Office Visit [facility] Oncology and Hematology - [place] [address] [facility] [address] [place] [address] Michele Smith MD [address] [facility] [address] [place] [address] documented as of this encounter Visit Diagnoses Not on filedocumented in this encounter Care Teams Calcine Furnace Loader Relationship Specialty Start Date End Date Roxanna Acosta MD PCP - General Family Practice 02/19/12 documented as of this encounter
--- OUTSIDE RECORDS SUMMARY | 2024-09-09 00:42 | XMS_ITS | Encounter Summary ---
Author Organization [facility] Address [address] [place] [address] Care Team Providers Care Transfer Engineer Name Role Phone Roxanna Acosta MD Primary Care Provider Encounter Details Date Type Department Care Team (Late Contact Info) Description 03/27/2007 Outpatient Historical [facility] PROMOTIONAL MARKETING AGENT - [address] [place] [address] Enrique Mckinney MD [address] [facility] [address] [place] [address] Social History Tobacco Use Types Packs/Day Years Used Date Smoking Tobacco: Never Assessed Comments Unknown Sex and Gender Information Value Date Recorded Sex Assigned at Not on file Legal Sex Female 4:02 AM HR REPRESENTATIVE Gender Identity Not on file Sexual Orientation Not on file documented as of this encounter Plan of Treatment Upcoming Encounters Date Type Department Care Team (Late st Contact Info) Description 10/27/2024 10:00 AM CDT Office Visit [facility] Oncology and Hematology - [place] [address] [facility] 200 [place] [address] Michele Smith MD [address] [facility] [address] [place] [address] documented as of this encounter Visit Diagnoses Not on filedocumented in this encounter Care Teams Transfer Engineer Relationship Specialty Start Date End Date Roxanna Acosta MD PCP - General Family Practice 02/19/12 documented as of this encounter
--- OUTSIDE RECORDS SUMMARY | 2024-09-09 00:42 | XMS_ITS | Encounter Summary ---
Author Organization [facility] Address [address] [place] [address] Care Team Providers Care Heat Treating Furnace Tender Name Role Phone Roxanna Acosta MD Primary Care Provider Encounter Details Date Type Department Care Team (Late st Contact Info) Description 11/19/2002 Outpatient Historical [facility] Primary Care - [address] [place] [address] Otf Talavera Social History Tobacco Use Types Packs/Day Years Used Date Smoking Tobacco: Never Assessed Comments Unknown Sex and Gender Information Value Date Recorded Sex Assigned at Not on file Legal Sex Female 4:02 AM BODY PRESSER Gender Identity Not on file Sexual Orientation Not on file documented as of this encounter Plan of Treatment Upcoming Encounters Date Type Department Care Team (Late st Contact Info) Description 10/27/2024 10:00 AM CDT Office Visit [facility] Oncology and Hematology - [place] [address] [facility] 200 [place] [address] Michele Smith MD [address] [facility] [address] [place] [address] documented as of this encounter Visit Diagnoses Not on filedocumented in this encounter Care Teams Heat Treating Furnace Tender Relationship Specialty Start Date End Date Roxanna Acosta MD PCP - General Family Practice 02/19/12 documented as of this encounter
--- OUTSIDE RECORDS SUMMARY | 2024-09-09 00:42 | XMS_ITS | Encounter Summary ---
Author Organization [facility] Address [address] [place] [address] Care Team Providers Care Electric Truck Operator Name Role Phone Roxanna Acosta MD Primary Care Provider Encounter Details Date Type Department Care Team (Late Contact Info) Description 11/03/2006 Outpatient Historical [facility] Primary Care - [address] [place] [address] Barak Greenberg MD [address] [facility] [address] [place], [place] [id number] Social History Tobacco Use Types Packs/Day Years Used Date Smoking Tobacco: Never Assessed Comments Unknown Sex and Gender Information Value Date Recorded Sex Assigned at Not on file Legal Sex Female 4:02 AM TIRE MECHANIC Gender Identity Not on file Sexual Orientation Not on file documented as of this encounter Last Filed Vital Signs Vital Sign Reading Time Taken Comments Blood Pressure 114/70 11/03/2006 1:30 PM CDT Pulse - - Temperature 36.6 C (97.9 F) 11/03/2006 1:30 PM CDT Respiratory Rate - - Oxygen [...] [facility] On[facility]ology - [place] [address] [place], [place] [address] [place] [address] Michele Smith MD [address] [facility] [address] [place] [address] documented as of this encounter Visit Diagnoses Not on filedocumented in this encounter Care Teams Electric Truck Operator Relationship Specialty Start Date End Date Roxanna Acosta MD PCP - General Family Practice 02/19/12 documented as of this encounter
--- OUTSIDE RECORDS SUMMARY | 2024-09-09 00:42 | XMS_ITS | Encounter Summary ---
Author Organization [facility] Address [address] [place] [address] Care Team Providers Care Career Information Specialist Name Role Phone Roxanna Acosta MD Primary Care Provider Encounter Details Date Type Department Care Team (Late st Contact Info) Description 07/06/2003 Outpatient Historical [facility] Primary Care - [address] [place] [address] Otf Talavera Social History Tobacco Use Types Packs/Day Years Used Date Smoking Tobacco: Never Assessed Comments Unknown Sex and Gender Information Value Date Recorded Sex Assigned at Not on file Legal Sex Female 4:02 AM FRAME GATE MORTISER OPERATOR Gender Identity Not on file Sexual Orientation Not on file documented as of this encounter Plan of Treatment Upcoming Encounters Date Type Department Care Team (Late st Contact Info) Description 10/27/2024 10:00 AM CDT Office Visit [facility] Oncology and Hematology - [place] [address] [facility] 200 [place] [address] Michele Smith MD [address] [facility] [address] [place] [address] documented as of this encounter Visit Diagnoses Not on filedocumented in this encounter Care Teams Career Information Specialist Relationship Specialty Start Date End Date Roxanna Acosta MD PCP - General Family Practice 02/19/12 documented as of this encounter
--- OUTSIDE RECORDS SUMMARY | 2024-09-09 00:42 | XMS_ITS | Encounter Summary ---
Author Organization [facility] Address 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 Oncology and Hematology - [place] [address] [facility] 200 [place] [address] Michele Smith MD [address] [facility] [address] [place] [address] documented as of this encounter Visit Diagnoses Not on filedocumented in this encounter Care Teams Inner Tube Inserter Relationship Specialty Start Date End Date Roxanna Acosta MD PCP - General Family Practice 02/19/12 documented as of this encounter
--- OUTSIDE RECORDS SUMMARY | 2024-09-09 00:42 | XMS_ITS | Encounter Summary ---
Author Organization [facility] Address [address] [place] [address] Care Team Providers Care Lab Head Name Role Phone Roxanna Acosta MD Primary [...] on file Legal Sex Female 4:02 AM PARKING REGULATION ENFORCEMENT OFFICER Gender Identity Not on file Sexual Orientation Not on file documented as of this encounter Plan of Treatment Upcoming Encounters Date Type Department Care Team (Late st Contact Info) Description 10/27/2024 10:00 AM CDT Office Visit [facility] Oncology and Hematology - [place] [address] [facility] 200 [place] [address] Michele Smith MD [address] [facility] [address] [place] [address] documented as of this encounter Procedures Procedure Name Priority Date/Time Associated Diagnosis Comments CBC WITH DIFFERENTIAL Routine 10/26/2004 11:50 AM PARKING REGULATION ENFORCEMENT OFFICER CBC WITH DIFFERENTIAL Routine 10/26/2004 11:50 AM PARKING REGULATION ENFORCEMENT OFFICER URINALYSIS W/REFLEX MICROSCOPIC Routine 10/26/2004 11:50 AM PARKING REGULATION ENFORCEMENT OFFICER URINALYSIS W/REFLEX MICROSCOPIC Routine 10/26/2004 11:15 AM PARKING REGULATION ENFORCEMENT OFFICER documented in this encounter Results * URINALYSIS (10/26/2004 11:50 AM PARKING REGULATION ENFORCEMENT OFFICER) COLOR UA Yellow INTERFACE SYSTEM CLARITY UA [...] /HPF INTERFACE SYSTEM 10/26/2004 11:5 0 AM PARKING REGULATION ENFORCEMENT OFFICER Freddie Márquez URINE ORDERABLES Final Result Performing Organization Address [facility] Phone Number INTERFACE SYSTEM Refer to clinic/hospital department * (ABNORMAL) CBC WITH DIFFERENTIAL (10/26/2004 11:50 AM PARKING REGULATION ENFORCEMENT OFFICER) NEUTROPHILS 74(H) 45 - 70 % INTERFAC [...] K/uL INTERFACE SYSTEM 10/26/2004 11:5 0 AM PARKING REGULATION ENFORCEMENT OFFICER Freddie Márquez HEMATOLOGY ORDERABLES Final Resu lt Performing Organization Address [facility] Phone Number INTERFACE SYSTEM Refer to clinic/hospital department * (ABNORMAL) CBC WITH DIFFERENTIAL (10/26/2004 11:50 AM PARKING REGULATION ENFORCEMENT OFFICER) WBC 7.6 4.0 - 9.8 K/uL INTERFACE [...] fL INTERFACE SYSTEM 10/26/2004 11:5 0 AM PARKING REGULATION ENFORCEMENT OFFICER us Freddie Márquez HEMATOLOGY ORDERABLES Final Resu lt Performing Organization Address [facility] Phone Number INTERFACE SYSTEM Refer to clinic/hospital department * (ABNORMAL) URINALYSIS (10/26/2004 11:15 AM PARKING REGULATION ENFORCEMENT OFFICER) COLOR UA Colorless INTERFACE SYSTEM CLARITY UA [...] /HPF INTERFACE SYSTEM 10/26/2004 11:1 5 AM PARKING REGULATION ENFORCEMENT OFFICER us Freddie Márquez URINE ORDERABLES Final Result Performing Organization Address [facility] de Phone Number INTERFACE SYSTEM Refer to clinic/hospital department documented in this encounter Visit Diagnoses Diagnosis Other current maternal conditions classifiable elsewhere, antepartum- Primary documented in this encounter Care Teams Lab Head Relationship Specialty Start Date End Date Roxanna Acosta MD PCP - General Family Practice 02/19/12 documented as of this encounter
--- OUTSIDE RECORDS SUMMARY | 2024-09-09 00:42 | XMS_ITS | Encounter Summary ---
Author Organization [facility] Address 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 Gender Identity Not on file Sexual Orientation Not on file documented as of this encounter Plan of Treatment Upcoming Encounters Date Type Department Care Team (Late st Contact Info) Description 10/27/2024 10:00 AM CDT Office Visit [facility] Oncology and Hematology - [place] [address] [facility] 200 [place] [address] Michele Smith MD [address] [facility] [address] [place] [address] documented as of this encounter Visit Diagnoses Not on filedocumented in this encounter Care Teams Agriculture Instructor Relationship Specialty Start Date End Date Rxoanna Acosta MD PCP - General Family Practice 02/19/12 documented as of this encounter
--- OUTSIDE RECORDS SUMMARY | 2024-09-09 00:42 | XMS_ITS | Encounter Summary ---
Author Organization [facility] Address 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 Gender Identity Not on file Sexual Orientation Not on file documented as of this encounter Plan of Treatment Upcoming Encounters Date Type Department Care Team (Late st Contact Info) Description 10/27/2024 10:00 AM CDT Office Visit [facility] Oncology and Hematology - [place]zad [address] [facility] 200 [place] [address] Michele Smith MD [address] [facility] [address] [place] [address] documented as of this encounter Visit Diagnoses Not on filedocumented in this encounter Care Teams Worm Farmer Relationship Specialty Start Date End Date Roxanna Acosta MD PCP - General Family Practice 02/19/12 documented as of this encounter
--- OUTSIDE RECORDS SUMMARY | 2024-09-09 00:42 | XMS_ITS | Encounter Summary ---
Author Organization [facility] Address 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 OUT PLATE GLASS Gender Identity Not on file Sexual Orientation Not on file documented as of this encounter Plan of Treatment Upcoming Encounters Date Type Department Care Team (Late st Contact Info) Description 10/27/2024 10:00 AM CDT Office Visit [facility] Oncology and Hematology - Farzad [address] [facility] 200 [place] [address] Michele Smith MD [address] [facility] [address] [place] [address] documented as of this encounter Visit Diagnoses Not on filedocumented in this encounter Care Teams Concrete Smoother Relationship Specialty Start Date End Date Roxanna Acosta MD PCP - General Family Practice 02/19/12 documented as of this encounter
--- OUTSIDE RECORDS SUMMARY | 2024-09-09 00:42 | XMS_ITS | Encounter Summary ---
Author Organization [facility] Address [address] [place] [address] Care Team Providers Care Electronic Pagination System Operator Name Role Phone Roxanna Acosta MD Primary Care Provider [phone] Encounter Details Date Type Department Care Team (Late Contact Info) Description 02/15/2004 Outpatient Historical [facility] Primary Care - [address] [place] [address] Barak Greenberg MD [address] [facility] [address] [place] [address] Social History Tobacco Use Types Packs/Day Years Used Date Smoking Tobacco: Never Assessed Comments Unknown Sex and Gender Information Value Date Recorded Sex Assigned at Not on file 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 Gender Identity Not on file Sexual Orientation Not on file documented as of this encounter Plan of Treatment Upcoming Encounters Date Type Department Care Team (Late Contact Info) Description 10/27/2024 10:00 AM CDT Office Visit [facility] Oncology and Hematology - Farzad [address] [facility] 200 [place] [address] Michele Smith MD [address] [facility] [address] [place] [address] documented as of this encounter Visit Diagnoses Not on filedocumented in this encounter Care Teams Electronic Pagination System Operator Relationship Specialty Start Date End Date Roxanna Acosta MD PCP - General Family Practice 02/19/12 documented as of this encounter
--- OUTSIDE RECORDS SUMMARY | 2024-09-09 00:42 | XMS_ITS | Encounter Summary ---
Author Organization [facility] Address 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
--- OUTSIDE RECORDS SUMMARY | 2024-09-09 00:42 | XMS_ITS | Clinical Summary ---
Author Organization [facility] Address [address] [place] [address] Care Team Providers Care Service Shop Foreman Name Role Phone Tracey Patel MD Primary Care Provider Source Comments [facility],non-owned Affiliates and Associated Physician Practices is amultiple site organization consisting of ambulatory clinics and hospital sitesin [place], [place], [place] and [place]. This disclosure is being madepursuant to the Care Everywhere program and may not contain all information available regarding this patient. Last updated 18.Total-trax Allergies No known active allergies Medications * [...] MAMMO BILAT DIAGNOSTIC Routine 07/17/2017 10:10 AM COOK CAMP Left breast lump PAP IG LB +HPV APTIMA REFLEX 16,18/45 Routine 07/09/2017 3:07 PM COOK CAMP Well woman exam with routine gynecological exam Screening for HPV (human papillomavirus) COMPREHENSIVE METABOLIC PANEL Routine 06/17/2017 10:22 AM COOK CAMP Annual physical exam LIPID PROFILE W TCHOL/HDL Routine 06/17/2017 10:22 AM C[facility] CAMP Annual physical exam from Last 3 Months or Most Recently Relevant to Health Maintenance Results * MAMMO DIAG DIRECT DIGITAL IMAGE BILA [id number] (07/17/2017 10:10 AM COOK CAMP) Anatomical Region Laterality Modality Bilateral Mammography 07/17/2017 11:1 7 AM C[facility] CAMP Narrative 07/17/2017 11:24 AM [facility] DIGITAL BILATERAL DIAGNOSTIC MAMMOGRAMS WITH CAD CORRELATION [...] if suspicious findings are present clinically. An [employer] Certified Facility. [facility] utilize Geeks[employer] as a reminder system to notify patients of their next recommended mammogram. Edited by Jennifer Stockton on 07/17/2017 11:23 AM Joyce Saldivar MD MAMMO ORDERABLES * (ABNORMAL) PAP IG LB +HPV APTIMA REFLEX 16,18/45 (07/09/2017 3:07 PM C[facility] CAMP) Diagnosis (A) [facility] ACCOUNT BILL Comment: EPITHELIAL [...] UTERINE CERVIX / Unknown 07/09/2017 3:07 PM C[facility] C[facility] 07/09/2017 Narrative [facility] ACCOUNT BILL - 07/15/2017 5:10 PM COOK CAMP Source.............Cervix LMP / Prev Treat...[id number] No. of containers..01 ThinPrep Vial Resulting Agency Comment [facility] [address] [place] [id number] Joyce Saldivar MD LAB - PATHOLOGY/CYTO LOGY ORDERABLES [facility] ACCOUNT BILL [address] [place] [address] * LIPID PROFILE W TCHOL/HDL (06/17/2017 10:22 AM [facility]) Cholesterol 185 <200 mg/dL [facility] ACCOUNT BILL [...] BLOOD SPECIMEN / Unknown 06/17/2017 10:22 AM [facility] 06/17/2017 Narrative Resulting Agency Comment [facility] [address] [place] [phone] Tracey Patel MD LAB - CHEMISTRY LEXX RAMIREZ [facility] Organization Address City/State/ZIP Co de Phone Number [facility] ACCOUNT BILL [address] [place] [address] * (ABNORMAL) COMPREHENSIVE METABOLIC PANEL (06/17/2017 10:22 AM [facility] [place]) Glucose 79 74 - 106 mg/dL [facility] [...] BLOOD SPECIMEN / Unknown 06/17/2017 10:22 AM [facility] 06/17/2017 Narrative Resulting Agency Comment [facility] [address] [place] [phone] Tracey Patel MD LAB - CHEMISTRY LEXX RAMIREZ [facility] ACCOUNT BILL [address] [place] [address] from Last 3 Months or Most Recently Relevant to Health Maintenance Care Teams Service Shop Foreman Relationship Specialty Start Date End Date Tracey Patel MD PCP - General Family Medicine 06/13/17
--- OUTSIDE RECORDS SUMMARY | 2024-09-09 00:42 | XMS_ITS | Encounter Summary ---
Author Organization [facility] Address 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 - [address] [place] [address] Enrique Mckinney MD 1 [facility] [place] [facility] [address] [place] [address] Social History Tobacco Use Types Packs/Day Years Used Date Smoking Tobacco: Never Assessed Comments Unknown Sex and Gender Information Value Date Recorded Sex Assigned at Not on file Legal Sex Female 4:02 AM TANKAGE SUPERVISOR Gender Identity Not on file Sexual Orientation Not on file documented as of this encounter Plan of Treatment Upcoming Encounters Date Type Department Care Team (Late st Contact Info) Description 10/27/2024 10:00 AM CDT Office Visit [facility] Oncology and Hematology - [place] [address] [facility] [address] [place] [address] Michele Smith MD [address] [facility] [address] [place] [address] documented as of this encounter Visit Diagnoses Not on filedocumented in this encounter Care Teams Curber Relationship Specialty Start Date End Date Roxanna Acosta MD PCP - General Family Practice 02/19/12 documented as of this encounter
--- OUTSIDE RECORDS SUMMARY | 2024-09-09 00:42 | XMS_ITS | Encounter Summary ---
Author Organization [facility] Address [address] [place] [address] Care Team Providers Care Oracle Scm Consultant Name Role Phone Roxanna Acosta MD Primary Care Provider Encounter Details Date Type Department Care Team (Late Contact Info) Description 05/01/2006 Outpatient Historical [facility] Primary Care - [address] [place] [address] Barak Greenberg MD [address] [facility] [address] [place], [place] [id number] Social History Tobacco Use Types Packs/Day Years Used Date Smoking Tobacco: Never Assessed Comments Unknown Sex and Gender Information Value Date Recorded Sex Assigned at Not on file Legal Sex Female 4:02 AM CASE MANAGEMENT RN Gender Identity Not on file Sexual Orientation Not on file documented as of this encounter Last Filed Vital Signs Vital Sign Reading Time Taken Comments Blood Pressure 110/60 05/01/2006 3:30 PM CDT Pulse - - Temperature 35.6 C (96.1 F) 05/01/2006 3:30 PM CDT Respiratory Rate - - [...] Hospital Oncology and Hematology - [place] [address] [facility] [address] [place] [address] Michele Smith MD [address] [facility] [address] [place] [address] documented as of this encounter Visit Diagnoses Not on filedocumented in this encounter Care Teams Oracle Scm Consultant Relationship Specialty Start Date End Date Roxanna Acosta MD PCP - General Family Practice 02/19/12 documented as of this encounter
--- OUTSIDE RECORDS SUMMARY | 2024-09-09 00:42 | XMS_ITS | Encounter Summary ---
Author Organization [facility] Address 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 AND ERECTOR Gender Identity Not on file Sexual Orientation Not on file documented as of this encounter Plan of Treatment Upcoming Encounters Date Type Department Care Team (Late st Contact Info) Description 10/27/2024 10:00 AM CDT Office Visit [facility] Oncology and Hematology - [place] [address] [facility] 200 [place] [address] Michele Smith MD [address] [facility] [address] [place] [address] documented as of this encounter Visit Diagnoses Not on filedocumented in this encounter Care Teams Media Planner Relationship Specialty Start Date End Date Roxanna Acosta MD PCP - General Family Practice 02/19/12 documented as of this encounter
--- OUTSIDE RECORDS SUMMARY | 2024-09-09 00:42 | XMS_ITS | Encounter Summary ---
Author Organization [facility] Address [address] [place] [address] Care Team Providers Care Level Vial Sealer Name Role Phone Roxanna Acosta MD Primary Care Provider Encounter Details Date Type Department Care Team (Late Contact Info) Description 07/29/2007 Outpatient Historical [facility] Enrique Mckinney MD [address] [address] Social History Tobacco Use Types Packs/Day Years Used Date Smoking Tobacco: Never Assessed Comments Unknown Sex and Gender Information Value Date Recorded Sex Assigned at Not on file Legal Sex Female 4:02 AM CEMENT LOADER Gender Identity Not on file Sexual Orientation Not on file documented as of this encounter Plan of Treatment Upcoming Encounters Date Type Department Care Team (Late Contact Info) Description 10/27/2024 10:00 AM CDT Office Visit [facility] Oncology and Hematology - [place] [address] [facility] 200 [place] [address] Michele Smith MD [address] [facility] [address] [place] [address] documented as of this encounter Procedures Procedure Name Priority Date/Time Associated Diagnosis Comments URINALYSIS WITH REFLEX CULTURE Routine 07/29/2007 12:18 PM CEMENT LOADER URINALYSIS W/REFLEX MICROSCOPIC Routine 07/29/2007 12:18 PM CEMENT LOADER documented in this encounter Results * URINALYSIS (07/29/2007 12:18 PM CEMENT LOADER) COLOR UA Pale Yellow INTERFAC E SYSTEM [...] Negative INTERFACE SYSTEM 07/29/2007 12:1 8 PM CEMENT LOADER Enrique Mckinney MD URINE ORDERABLES Edited Performing Organization Address [facility] Phone Number INTERFACE SYSTEM Refer to clinic/hospital department * URINALYSIS WITH REFLEX CULTURE (07/29/2007 12:18 PM CEMENT LOADER) URINE CULTURE ORDER Not indicated INTERFACE SYSTEM Comment: Criteria for a reflex culture include one or more of the following: Abn ormal nitrite, leukocyte esterase, WBCs or RBCs. Lack of qualifying criteria does not exclude the possiblity of a urinary tract infection. Dilute urine, drug interference, etc. may decrease the sensitivity of the criteria analytes. 07/29/2007 12:1 8 PM CEMENT LOADER Enrique Mckinney MD URINE ORDERABLES Edited Performing Organization Address [facility] de Phone Number INTERFACE SYSTEM Refer to clinic/hospital department documented in this encounter Visit Diagnoses Not on filedocumented in this encounter Care Teams Level Vial Sealer Relationship Specialty Start Date End Date Roxanna Acosta MD PCP - General Family Practice 02/19/12 documented as of this encounter
--- OUTSIDE RECORDS SUMMARY | 2024-09-09 00:42 | XMS_ITS | Encounter Summary ---
Author Organization [facility] Address 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 Gender Identity Not on file Sexual Orientation Not on file documented as of this encounter Plan of Treatment Upcoming Encounters Date Type Department Care Team (Late st Contact Info) Description 10/27/2024 10:00 AM CDT Office Visit [facility] Oncology and Hematology - [place] [address] [facility] 200 [place] [address] Michele Smith MD [address] [facility] [address] [place] [address] documented as of this encounter Visit Diagnoses Diagnosis Second-degree perineal laceration, with delivery- Primary documented in this encounter Care Teams Physical Therapy Nurse Relationship Specialty Start Date End Date Roxanna Acosta MD PCP - General Family Practice 02/19/12 documented as of this encounter
--- OUTSIDE RECORDS SUMMARY | 2024-09-09 00:42 | XMS_ITS | Encounter Summary ---
Author Organization [facility] Address [address] [place] [address] Care Team Providers Care Semiconductor Packages Sealer Name Role Phone Roxanna Acosta MD Primary Care Provider Encounter Details Date Type Department Care Team (Late Contact Info) Description 10/25/2007 Inpatient Historical [facility] Enrique Mckinney MD [address] [address] Normal Delivery Social History Tobacco Use Types Packs/Day Years Used Date Smoking Tobacco: Never Assessed Comments Unknown Sex and Gender Information Value Date Recorded Sex Assigned at Not on file Legal Sex Female 4:02 AM MERCURY PURIFIER Gender Identity Not on file Sexual Orientation Not on file documented as of this encounter Plan of Treatment Upcoming Encounters Date Type Department Care Team (Late Contact Info) Description 10/27/2024 10:00 AM CDT Office Visit [facility] Oncology and Hematology - [place] [address] [facility] 200 [place] [address] Michele Smith MD [address] [facility] [address] [place] [address] documented as of this encounter Procedures Procedure Name Priority Date/Time Associated Diagnosis Comments URINALYSIS W/REFLEX MICROSCOPIC Stat 10/25/2007 6:26 PM CDT documented in this encounter Results * URINALYSIS (10/25/2007 6:26 PM CDT) WBC UA Invalid Result 0 - 5 [facility] CLARITY UA Invalid Result Clear [facility] PROTEIN UA Invalid Result Negative [facility] EPITHELIAL CELLS, URINE Invalid Result [facility] BILIRUBIN UA Invalid Result Negative [facility] LEUKOCYTE ESTERASE UA Invalid Result Negative [facility] RBC UA Invalid Result 0 - 4 /HPF [facility] SPECIFIC GRAVITY UA Invalid Result 1.001 - 1.035 [facility] GLUCOSE UA Invalid Result Negative [facility] BLOOD UA Invalid Result Negative [facility] TRANSITIONAL EPI Invalid Result [facility] COLOR UA Invalid Result [facility] Comment: Lab was notified by Laura 10/25/07 7:35 PM that specimen was mislabeled. Patient's account has been credited. NITRITE UA Invalid Result Negative [facility] UROBILINOGEN UA Invalid Result <1 [facility] BACTERIA UA Invalid Result None Seen [facility] PH UA Invalid Result 5.0 - 8.0 [facility] KETONES UA Invalid Result Negative [facility] 10/25/2007 6:26 PM CDT 10/25/2007 6:30 PM CDT us Enrique Mckinney MD URINE ORDERABLES Edited [facility] [address] [place] [address] documented in this encounter Visit Diagnoses Diagnosis Normal delivery documented in this encounter Care Teams Semiconductor Packages Sealer Relationship Specialty Start Date End Date Roxanna Acosta MD PCP - General Family Practice 02/19/12 documented as of this encounter
--- OUTSIDE RECORDS SUMMARY | 2024-09-09 00:42 | XMS_ITS | Encounter Summary ---
Author Organization [facility] Address [address] [place] [address] Care Team Providers Care Textile Clothing And Footwear Mechanic Name Role Phone Roxanna Acosta MD Primary Care Provider Encounter Details Date Type Department Care Team (Late Contact Info) Description 04/02/2007 Outpatient Historical [facility] PHYSICAL THER - Medical [address] [address] Enrique Mckinney MD [address] [address] Social History Tobacco Use Types Packs/Day Years Used Date Smoking Tobacco: Never Assessed Comments Unknown Sex and Gender Information Value Date Recorded Sex Assigned at Not on file Legal Sex Female 4:02 AM CAMERA TUNING ENGINEER Gender Identity Not on file Sexual Orientation Not on file documented as of this encounter Plan of Treatment Upcoming Encounters Date Type Department Care Team (Late st Contact Info) Description 10/27/2024 10:00 AM CDT Office Visit [facility] Oncology and Hematology - [place] [address] [facility] 200 [place] [address] Michele Smith MD [address] [facility] [address] [place] [address] documented as of this encounter Visit Diagnoses Not on filedocumented in this encounter Care Teams Textile Clothing And Footwear Mechanic Relationship Specialty Start Date End Date Roxanna Acosta MD PCP - General Family Practice 02/19/12 documented as of this encounter
--- OUTSIDE RECORDS SUMMARY | 2024-09-09 00:42 | XMS_ITS | Encounter Summary ---
Author Organization [facility] Address [address] [place] [address] Care Team Providers Care Vice President Of Talent Management Name Role Phone Roxanna Acosta MD Primary Care Provider [phone] Encounter Details Date Type Department Care Team (Latest Contact Info) Description 10/05/2007 Outpatient Historical [facility], [address] Epifanio Jones MD NO ADDRESS ON FILE Supervision of Other Normal Social History Tobacco Use Types Packs/Day Years Used Date Smoking Tobacco: Never Assessed Comments Unknown Sex and Gender Information Value Date Recorded Sex Assigned at Not on file Legal Sex Female 4:02 AM TRANSIT DRIVER Gender Identity Not on file Sexual Orientation Not on file documented as of this encounter Plan of Treatment Upcoming Encounters Date Type Department Care Team (Late st Contact Info) Description 10/27/2024 10:00 AM CDT Office Visit [facility] Oncology and Hematology - [place] [address] [facility] 200 [place] [address] Michele Smith MD 2[address] [facility] [address] [place] [address] documented as of this encounter Procedures Procedure Name Priority Date/Time Associated Diagnosis Comments (BROTH-ENRICHED) GROUP B STREP DETECTION Routine 10/05/2007 5:22 PM TRANSIT DRIVER documented in this encounter Results * STREPTOCOCCUS GROUP B CULTURE (10/05/2007 5:22 PM TRANSIT DRIVER) PRELIMINARY REPORT Pending INTERFACE SYSTEM FINAL REPORT No Streptococcus Group B isolated. INTERFACE SYSTEM Vaginal 10/05/2007 5:22 PM TRANSIT DRIVER 10/05/2007 5:26 PM TRANSIT DRIVER us Epifanio Jones MD MICROBIOLOGY - GENERAL ORDERABL ES Final Result INTERFACE SYSTEM Refer to clinic/hospital department documented in this encounter Visit Diagnoses Diagnosis Supervision of other normal documented in this encounter Care Teams Vice President Of Talent Management Relationship Specialty Start Date End Date Roxanna Acosta MD PCP - General Family Practice 02/19/12 documented as of this encounter
--- OUTSIDE RECORDS SUMMARY | 2024-09-09 00:42 | XMS_ITS | Encounter Summary ---
Author Organization [facility] Address [address] [place] [address] Care Team Providers Care Nuclear Radiologist Name Role Phone Roxanna Acosta MD Primary Care Provider Encounter Details Date Type Department Care Team (Late st Contact Info) Description 11/27/2006 Orders Only [facility] Primary Care - [address] [place] [address] Barak Greenberg MD [address] [facility] [address] [place] [address] Social History Tobacco Use Types Packs/Day Years Used Date Smoking Tobacco: Never Assessed Comments Unknown Sex and Gender Information Value Date Recorded Sex Assigned at Not on file Legal Sex Female 4:02 AM CUT OFF OPERATOR SCORER Gender Identity Not on file Sexual Orientation Not on file documented as of this encounter Progress Notes * Barak Greenberg MD - 12/24/2007 5:19 PM CDT TIME:02:18 pm PATIENT`S HOME PHONE: PATIENT`S WORK PHONE: PATIENT`S INSURANCE: [employer] [facility] WHO TOOK THE CALL: Arabella Davila A GENERAL INFORMATION PATIENT STATUS: Established Patient. LAST VISIT: 11-03-06 PCP: keon. ALTERNATIVE PHONE NUMBER: [phone] WHO CALLED: Patient called. CURRENT ALLERGY LIST: [facility] NUMBER: [phone] PROBLEMS: pt had miscarriage 09/10 got again [...] Fills, status: DISCONTINUED, 11/27/2006, Comment: called to [phone]...sylwia. LEXAPRO ORAL TABLET 10 MG, 1 Every [...] 10:00 AM CDT Office Visit [facility] Oncology and Hematology - [place] [address] [facility] 200 [place] [address] Michele Smith MD [address] [facility] [address] [place] [address] documented as of this encounter Visit Diagnoses Not on filedocumented in this encounter Care Teams Nuclear Radiologist Relationship Specialty Start Date End Date Roxanna Acosta MD PCP - General Family Practice 02/19/12 documented as of this encounter
--- OUTSIDE RECORDS SUMMARY | 2024-09-09 00:42 | XMS_ITS | Encounter Summary ---
Author Organization [facility] Address [address] [place] [address] Care Team Providers Care Fat Purification Worker Name Role Phone Roxanna Acosta MD Primary Care Provider Encounter Details Date Type Department Care Team (Late st Contact Info) Description 11/23/2003 Outpatient Historical [facility] Primary Care - [address] [place] [address] Otf Talavera Social History Tobacco Use Types Packs/Day Years Used Date Smoking Tobacco: Never Assessed Comments Unknown Sex and Gender Information Value Date Recorded Sex Assigned at Not on file Legal Sex Female 4:02 AM CORONER FORENSIC TECHNICIAN Gender Identity Not on file Sexual Orientation Not on file documented as of this encounter Plan of Treatment Upcoming Encounters Date Type Department Care Team (Late st Contact Info) Description 10/27/2024 10:00 AM CDT Office Visit [facility]3] Oncology and Hematology - [place] [address] [facility] 200 [place] [address] Michele Smith MD [address] [facility] [address] [place] [address] documented as of this encounter Visit Diagnoses Not on filedocumented in this encounter Care Teams Fat Purification Worker Relationship Specialty Start Date End Date Roxanna Acosta MD PCP - General Family Practice 02/19/12 documented as of this encounter
--- OUTSIDE RECORDS SUMMARY | 2024-09-09 00:42 | XMS_ITS | Encounter Summary ---
Author Organization [facility] Address [address] [place] [address] Care Team Providers Care Student Finance Specialist Name Role Phone Roxanna Acosta MD Primary Care Provider Encounter Details Date Type Department Care Team (Late Contact Info) Description 08/13/2007 Outpatient Historical [facility] FACULTY DEAN - Medical [address] [address] Enrique Mckinney MD [address] [address] Social History Tobacco Use Types Packs/Day Years Used Date Smoking Tobacco: Never Assessed Comments Unknown Sex and Gender Information Value Date Recorded Sex Assigned at Not on file Legal Sex Female 4:02 AM OVERSEAMER Gender Identity Not on file Sexual Orientation Not on file documented as of this encounter Plan of Treatment Upcoming Encounters Date Type Department Care Team (Late st Contact Info) Description 10/27/2024 10:00 AM CDT Office Visit [facility] Oncology and Hematology - Farzad [address] Tashia Mancini [facility] [address] [place] [address] Michele Smith MD 2227 [facility] [address] [place] [address] documented as of this encounter Visit Diagnoses Not on filedocumented in this encounter Care Teams Student Finance Specialist Relationship Specialty Start Date End Date Roxanna Acosta MD PCP - General Family Practice 02/19/12 documented as of this encounter
--- OUTSIDE RECORDS SUMMARY | 2024-09-09 00:42 | XMS_ITS | Encounter Summary ---
Author Organization [facility] Address [address] [place] [address] Care Team Providers Care Vessel Slag Worker Name Role Phone Roxanna Acosta MD Primary Care Provider Encounter Details Date Type Department Care Team (Late Contact Info) Description 08/13/2007 Outpatient Historical [facility] [employer] - Medical [address] [address] Enrique Mckinney MD [address] [address] Social History Tobacco Use Types Packs/Day Years Used Date Smoking Tobacco: Never Assessed Comments Unknown Sex and Gender Information Value Date Recorded Sex Assigned at Not on file Legal Sex Female 4:02 AM WARP CLAMPER Gender Identity Not on file Sexual Orientation Not on file documented as of this encounter Plan of Treatment Upcoming Encounters Date Type Department Care Team (Late st Contact Info) Description 10/27/2024 10:00 AM CDT Office Visit [facility] Oncology and Hematology - Farzad 222 Tashia Mancini [facility] 200 [place] [address] Michele Smith MD 2227 [facility] [address] [place] [address] documented as of this encounter Visit Diagnoses Not on filedocumented in this encounter Care Teams Vessel Slag Worker Relationship Specialty Start Date End Date Roxanna Acosta MD PCP - General Family Practice 02/19/12 documented as of this encounter
--- OUTSIDE RECORDS SUMMARY | 2024-09-09 00:43 | XMS_ITS | Encounter Summary ---
Author Organization [facility] Address [address] [place] [address] Care Team Providers Care Buffing Wheel Former Machine Name Role Phone Tracey Patel MD Primary Care Provider [phone] Tracey Patel MD Unavailable Encounter Details Date Type Department Care Team (Late st Contact Info) Description 04/16/2018 SS Outpatient Visit [facility] DEPT Tracey Patel MD [address] [place] [address] Social History Tobacco Use Types Packs/Day [...] on filedocumented in this encounter Care Teams Buffing Wheel Former Machine Relationship Specialty Start Date End Date Tracey Patel MD PCP - General Family Medicine 06/13/17 Tracey Patel MD [address] [place] [address] PCP - Attributed-C Commercial 12/19/18 12/19/18 documented as of this encounter
--- OUTSIDE RECORDS SUMMARY | 2024-09-09 00:43 | XMS_ITS | Encounter Summary ---
Author Organization [facility] Address [address] [place] [address] Care Team Providers Care Preschool Aide Name Role Phone Roxanna Acosta MD Primary Care Provider [phone] Encounter Details Date Type Department Care Team (Late st Contact Info) Description 12/30/2001 Outpatient Historical [facility] Primary Care - [address] [place] [address] Otf Talavera Social History Tobacco Use Types Packs/Day Years Used Date Smoking Tobacco: Never Assessed Comments Unknown Sex and Gender Information Value Date Recorded Sex Assigned at Not on file Legal Sex Female 4:02 AM HIDE AND SKIN COLERER Gender Identity Not on file Sexual Orientation Not on file documented as of this encounter Plan of Treatment Upcoming Encounters Date Type Department Care Team (Late Contact Info) Description 10/27/2024 10:00 AM CDT Office Visit [facility] Oncology and Hematology - Farzad 2227 [facility] [address] [place] [address] Michele Smith MD 2[address] [facility] [address] [place] [address] documented as of this encounter Visit Diagnoses Not on filedocumented in this encounter Care Teams Preschool Aide Relationship Specialty Start Date End Date Roxanna Acosta MD PCP - General Family Practice 02/19/12 documented as of this encounter
--- OUTSIDE RECORDS SUMMARY | 2024-09-09 00:43 | XMS_ITS | Encounter Summary ---
Author Organization [facility] Address [address] [place] [address] Care Team Providers Care Clothing Sorter Name Role Phone Roxanna Acosta MD Primary Care Provider Encounter Details Date Type Department Care Team (Late st Contact Info) Description 12/29/2002 Outpatient Historical [facility] Primary Care - [address] [place] [address] Otf Talavera Social History Tobacco Use Types Packs/Day Years Used Date Smoking Tobacco: Never Assessed Comments Unknown Sex and Gender Information Value Date Recorded Sex Assigned at Not on file Legal Sex Female 4:02 AM SYSTEM ADMIN Gender Identity Not on file Sexual Orientation Not on file documented as of this encounter Plan of Treatment Upcoming Encounters Date Type Department Care Team (Late st Contact Info) Description 10/27/2024 10:00 AM CDT Office Visit [facility] Oncology and Hematology - Farzad 2[address] [facility] 200 [place] [address] Michele Smith MD 2[address] [facility] [address] [place] [address] documented as of this encounter Visit Diagnoses Not on filedocumented in this encounter Care Teams Clothing Sorter Relationship Specialty Start Date End Date Roxanna Acosta MD PCP - General Family Practice 02/19/12 documented as of this encounter
--- OUTSIDE RECORDS SUMMARY | 2024-09-09 00:43 | XMS_ITS | Continuity of Care Document ---
Author Organization [facility] Address [address] [place] [address] Phone Care Team Providers Care Stubber Name Role Phone Trang Camille FORTUNE Unavailable [...] HG Pt inelig neg scrn depres OFFICE [id number] BODY MASS INDEX DOCD IMMUN ADMIN (INC [...] Diagnoses Date Provider Providers Copied on Encounter [facility], [address], [place], [place], [id number], tel:[phone] [facility] Complete Care No Information 3 Trang Obrien . [address] [place] [address], [id number] , . tel:[phone] [facility], [address] [place] [address], [id number], tel:[phone] [facility] Complete Care No Information 2 Trang Obrien . [address] [place] [address], [id number] , . tel:[phone] PREVENTATIVE- EST: 40-64 [facility], [address] [place] [address], [id number], tel:[phone] [facility] Complete Care preventive exam (chief complaint) Well woman exam with routine gynecological examEncounter for screening mammogram for malignant neoplasm of breastADHD, predominantly inattentive type 2 Trang Obrien . [address] [place] [address], [id number] , . tel:[phone] Referring Provider: Camille Costello, [address] [place] [address], [place], [address] . tel:[phone] OFFICE [id number] ANDED [facility], [address] [place] [address], [id number], tel:[phone] [facility] Care Telehealth (chief complaint) ADHD, predominantly inattentive type 2 Trang Obrien . [address] [place] [address], [id number] , . tel:[phone] Referring Provider: Camille Costello, [address] [place] [address], [address] . tel:[phone] [facility], [address], [place], [place], [id number], tel:[phone] [facility] Care No Information 1 Trang Obrien . [address] [place] [address], [id number] , . tel:[phone] Referring Provider: Camille Costello, [address] [place] [address], [address] . tel:[phone] [facility], [address], [place], [place], [id number], tel:[phone] [facility] Care No Information 1 Trang Obrien . [address] [place] [address], [id number] , . tel:[phone] Referring Provider: Camille Costello, [address] [place] [address], [address] . tel:[phone] [facility], [address], [place], [place], [id number], tel:[phone] [facility] Microcytic anemia 1 Trang Obrien . [address] [place] [address], [id number] , . tel:[phone] PREVENTATIVE- NEW: 40-64 [facility], [address], [place], [id number], tel:[phone] [facility] Complete Care ADD/ADHD initial visit (chief complaint)p reventive exam (chief complaint) ADHD, predominantly inattentive typeEstablishing care with new doctor, encounter forMeasles, mumps, rubella (MMR) vaccination status unknownEncntr screen mammogram for malignant neoplasm of breast 1 Trang Serranozabeth . [address] [facility], [address], [id number] , [place]. tel:[phone] Referring Provider: Camille Costello, [address] [facility] [address], [place], [address] . tel:[phone] Family History Family Member Type Diagnosis Age [...] libertarian ID Authorebonya tishayne(s) 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 [id number] [employer] CI [id number] [employer] CI [id number] [employer] CI [id number] Social History Type Description Quantity Date Captured [...] Order: Radiology Order SC REENING MAMMOGRAM (CAD) (23201), Sent on: Sent Future Order: Radiology Order SC REENING MAMMOGRAM (CAD) Bilateral breast (73513), Body Site: breast, Sent on: Sent History [...]
--- OUTSIDE RECORDS SUMMARY | 2024-09-09 00:43 | XMS_ITS | Encounter Summary ---
Author Organization [facility] Address [address] [place] [address] Care Team Providers Care Interactive Media Designer Name Role Phone Roxanna Acosta MD Primary Care Provider Encounter Details Date Type Department Care Team (Late st Contact Info) Description 05/31/2002 Outpatient Historical [facility] Primary Care - [address] [place] [address] Otf Talavera Social History Tobacco Use Types Packs/Day Years Used Date Smoking Tobacco: Never Assessed Comments Unknown Sex and Gender Information Value Date Recorded Sex Assigned at Not on file Legal Sex Female 4:02 AM BLAST FURNACE KEEPER Gender Identity Not on file Sexual Orientation Not on file documented as of this encounter Plan of Treatment Upcoming Encounters Date Type Department Care Team (Late Contact Info) Description 10/27/2024 10:00 AM CDT Office Visit [facility] Oncology and Hematology - Afrzad 2227 [facility] 200 [place] [address] Michele Smith MD 2[address] [facility] [address] [place] [address] documented as of this encounter Visit Diagnoses Not on filedocumented in this encounter Care Teams Interactive Media Designer Relationship Specialty Start Date End Date Roxanna Acosta MD PCP - General Family Practice 02/19/12 documented as of this encounter
--- OUTSIDE RECORDS SUMMARY | 2024-09-09 00:43 | XMS_ITS | Encounter Summary ---
Author Organization [facility] Address [address] [place] [address] Care Team Providers Care Strap Cutter Name Role Phone Roxanna Acosta MD Primary Care Provider Encounter Details Date Type Department Care Team (Late st Contact Info) Description 07/07/2002 Outpatient Historical [facility] Primary Care - [address] [place] [address] [place] [address] Otf Talavera Social History Tobacco Use Types Packs/Day Years Used Date Smoking Tobacco: Never Assessed Comments Unknown Sex and Gender Information Value Date Recorded Sex Assigned at Not on file Legal Sex Female 4:02 AM RADIO NEWS ANCHOR Gender Identity Not on file Sexual Orientation Not on file documented as of this encounter Plan of Treatment Upcoming Encounters Date Type Department Care Team (Late Contact Info) Description 10/27/2024 10:00 AM CDT Office Visit [facility] Oncology and Hematology - Farzad [address] [facility] 200 [place] [address] Michele Smith MD 2[address] [facility] [address] [place] [address] documented as of this encounter Visit Diagnoses Not on filedocumented in this encounter Care Teams Strap Cutter Relationship Specialty Start Date End Date Roxanna Acosta MD PCP - General Family Practice 02/19/12 documented as of this encounter
--- OUTSIDE RECORDS SUMMARY | 2024-09-09 00:43 | XMS_ITS | Encounter Summary ---
Author Organization [facility] Address [address] [place] [address] Care Team Providers Care Case Maker Name Role Phone Roxanna Acosta MD Primary Care Provider [phone] Encounter Details Date Type Department Care Team (Late st Contact Info) Description 04/14/2002 Outpatient Historical [facility] Primary Care - [address] [place] [address] Otf Talavera Social History Tobacco Use Types Packs/Day Years Used Date Smoking Tobacco: Never Assessed Comments Unknown Sex and Gender Information Value Date Recorded Sex Assigned at Not on file Legal Sex Female 4:02 AM CAR WIPER Gender Identity Not on file Sexual Orientation Not on file documented as of this encounter Plan of Treatment Upcoming Encounters Date Type Department Care Team (Late st Contact Info) Description 10/27/2024 10:00 AM CDT Office Visit [facility] Oncology and Hematology - Farzad 2227 [facility] 200 [place] [address] Michele Smith MD [address] [facility] [address] [place] [address] documented as of this encounter Visit Diagnoses Not on filedocumented in this encounter Care Teams Case Maker Relationship Specialty Start Date End Date Roxanna Acosta MD PCP - General Family Practice 02/19/12 documented as of this encounter
--- OUTSIDE RECORDS SUMMARY | 2024-09-09 00:43 | XMS_ITS | Encounter Summary ---
Author Organization [facility] Address [address] [place] [address] Care Team Providers Care Car Mechanic Helper Name Role Phone Roxanna Acosta MD Primary Care Provider [phone] Encounter Details Date Type Department Care Team (Late Contact Info) Description 06/14/2002 Outpatient Historical [facility] ([facility]) [address] [place] [address] Dallas Gannon MD NO ADDRESS ON FILE Social History Tobacco Use Types Packs/Day Years Used Date Smoking Tobacco: Never Assessed Comments Unknown Sex and Gender Information Value Date Recorded Sex Assigned at Not on file Legal Sex Female 4:02 AM GAS BOOSTER ENGINEER Gender Identity Not on file Sexual Orientation Not on file documented as of this encounter Plan of Treatment Upcoming Encounters Date Type Department Care Team ([facility] Contact Info) Description 10/27/2024 10:00 AM CDT Office Visit [facility] Oncology and Hematology - Farzad [address] [facility] [address] [place] [address] Michele Smith MD 2[address] [facility] [address] [place] [address] documented as of this encounter Visit Diagnoses Not on filedocumented in this encounter Care Teams Car Mechanic Helper Relationship Specialty Start Date End Date Roxanna Acosta MD PCP - General Family Practice 02/19/12 documented as of this encounter
--- OUTSIDE RECORDS SUMMARY | 2024-09-09 00:43 | XMS_ITS | Encounter Summary ---
Author Organization [facility] Address [address] [place] [address] Care Team Providers Care Garage Laborer Name Role Phone Roxanna Acosta MD Primary Care Provider [phone] Encounter Details Date Type Department Care Team (Latest Contact Info) Description 06/14/2002 Outpatient Historical [facility] Otf Talavera UNDIAGNOSED CARDIAC MURMURS (Primary Dx) Social History Tobacco Use Types Packs/Day Years Used Date Smoking Tobacco: Never Assessed Comments Unknown Sex and Gender Information Value Date Recorded Sex Assigned at Not on file Legal Sex Female 4:02 AM CCU NURSE Gender Identity Not on file Sexual Orientation Not on file documented as of this encounter Plan of Treatment Upcoming Encounters Date Type Department Care Team (Late st Contact Info) Description 10/27/2024 10:00 AM CDT Office Visit [facility] Oncology and Hematology - Farzad 2[address] Tashia Mancini [facility] [address] [place] [address] Michele Smith MD 2[address] [facility] [address] [place] [address] documented as of this encounter Visit Diagnoses Diagnosis Undiagnosed cardiac murmurs- Primary documented in this encounter Care Teams Garage Laborer Relationship Specialty Start Date End Date Roxanna Acosta MD PCP - General Family Practice 02/19/12 documented as of this encounter
--- NOTE | 2024-09-09 07:25 | WPDHPUPDATE1 ---
History and Physical Update Update Date/Time: 09/09/24 07:25 CBC results noted. Anemia is chronic. Discussed potential for postoperative transfusion though at this time is not planned unless significant blood loss occurs with procedure. History and Physical has been reviewed, including an updated exam of the patient. There are NO changes in the patient's condition. Risks, benefits, and alternatives have been discussed and questions answered. Patient agrees to proceed with procedure.
[2024-09-09] MEDS: LACTATED RINGERS 1,000 ML 30 ML IV CONT ×2 (08:00→11:09)
[2024-09-09] MEDS: ACETAMINOPHEN 500 MG TABLET 1000 MG PO (08:06)
[2024-09-09] MEDS: SCOPOLAMINE 1 MG PATCH 1 PATCH TRANSDERM (08:06)
[2024-09-09] MEDS: KETOROLAC 15 MG/ML VIAL (*BKC) IV PUSH (08:06)
--- NOTE | 2024-09-09 08:15 | P.PNAN_ITS ---
Anes - Initial Pre Proc Eval Procedure: Operation Date: 09/09/24 09:30 Proposed Procedures p Robotic Assisted Total Laparoscopic Hysterectomy with Bilateral Salpingectomy - Pato Talbert MD Date/Time: 09/09/24 08:15 Surgeon: Pato Talbert MD Pre Op Diagnosis: abnormal uterine bleeding Patient Data Age: 44 Gender: F Height: 1.57 m Weight: 66.2 kg Allergies Allergy/AdvReac Type Severity Reaction Status Date / Time potassium sorbate AdvReac Intermediate Blister Verified 09/09/24 07:38 gluten AdvReac Abdominal Verified 09/09/24 07:38 Pain Home Medications ?Medication ?Instructions ?Recorded ?Confirmed ?Type naproxen sodium 220 mg capsule 220 mg PO BID PRN Pain (Scale 09/22/23 08/31/24 History (Aleve) Score 1-3) dextroamphetamine-amphetamine ER 60 mg (3 x 20 mg) PO DIRECTED 08/26/24 08/31/24 Rx 20 mg 24hr capsule,extend release #90 caps Patient hx anesthesia problems: none Family hx anesthesia problems: none Results Review: All pre-operative results and documents have been reviewed as part of the pre- operative evaluation. [facility] Past Medical History Medical History Screening mammogram, encounter for Iron deficiency anemia, unspecified IBS (irritable bowel syndrome) Irregular periods Hx of LEEP (loop electrosurgical excision procedure) of cervix complicating 2018 Surgical History Surgical History History of hysteroscopy (07/19/24) Hysteroscopy 2. Dilation and curettage History of endoscopy (~03/2024) H/O colonoscopy (~03/2024) Hx of tonsillectomy 2000 Social History Social History Smoking status: Never smoker Second hand tobacco smoke exposure: No Alcohol intake: current Drinks per week: 2 Substance use: never Substance use type: does not use Do You Feel Safe in your Home?: Yes Lack of Transportation: No Lack of Food: Never True Current Housing: Decline to Answer Concerned About Future Housing: Decline to Answer Difficulty Paying Gas/Electric Bills: Decline to Answer Difficulty Paying for Meds: Decline to Answer Currently Unemployed: Decline to Answer Education: Decline to Answer Difficulty w/ Childcare or Family Care: Decline to Answer Living arrangements: with family Additional living arrangements comments: 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/Education: 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 Gender identity (if verbalized by the patient): Female Sexual Orientation (if Verbalized by the Patient): Straight or Heterosexual Spiritual care concerns: No Agree to blood products: Yes Anes - Eval Final PreProcedure Day of Procedure 09/09/24 08:15 Patient weight: overweight Heart: regular rate and rhythm Lungs: clear to auscultation Airway: Mallampati scale class II Neurological: alert and oriented Last oral intake: >/= 8 hours ASA classification: II Emergent: no Anesthetic plan: proceed Anesthesia type and monitoring: general ETT and standard monitoring Results Review: All pre-operative results and documents have been reviewed as part of the pre- operative evaluation. Informed Consent: The patient's anesthetic plan and its attendant risks and benefits were discussed with the patient/family/POA. Questions were solicited and answers provided to the satisfaction of the patient/family/POA.
[2024-09-09 08:40] LABS: BEDSIDEPREGUCG Negative (Negative)
[2024-09-09] MEDS: ceFAZolin 2 GM/D5W 50 ML 2 GM/50 ML BAG IVPB (09:30)
--- NOTE | 2024-09-09 10:49 | W.PM.PROC2 ---
Procedure Note - Detailed Date of Procedure 09/09/24 Pre-op Diagnosis 1. Menometrorrhagia 2. Enlarged uterus 3. History of LEEP procedure 4. Anemia Post-op Diagnosis Same Procedure Performed 1. Robotic assisted total laparoscopic hysterectomy with bilateral salpingectomy Surgeon Pato Talbert MD Anesthesia General Findings Enlarged globular uterus. Tubes and ovaries without abnormality. Description of Procedure Patient prepped and draped usual manner for this procedure. Cervical instruments were placed for uterine mobility throughout the case. Abdominal trocar sites were marked and placed under direct visualization. Surgeon moved to the console after de Kam system and instruments were placed. Mesial salpinx bilaterally cauterized and cut and tubes removed. Round ligament cauterized and cut bilaterally bladder flap was developed without difficulty. Utero-ovarian utero-ovarian ligament cauterized and cut and at this point the posterior leaf broad ligament was then incised to skeletonized uterine vessels. Once this was undertaken the vessels were cauterized and cut bilaterally without difficulty. Posterior colpotomy incision was made and circumferentially continued to separate the cervix from the vagina. Uterus was delivered into the vagina. Irrigation was undertaken and there was no bleeding. Vaginal cuff was then closed using V lock suture from the right angle to the midline left angle midline with good approximation hemostasis noted. Hematoma was placed over the raw incision areas, gas was allowed to escape, instruments removed and incisions approximated using 4-0 Monocryl. Patient was sent to recovery room in stable condition. Estimated Blood Loss 10 Drains No Packing No Pathology Yes Complications No immediate complications Condition Stable Disposition PACU [facility] Billing Surgery - Charge Forward: Surgery Billing
[2024-09-09] MEDS: fentaNYL CITRATE INJ (*CRX) 100 MCG/2 ML VIAL 25 MCG IV PUSH ×8 (11:42→12:23)
--- NOTE | 2024-09-09 12:36 | PC.NURSE ---
REPORT RECEIVED FROM PACU, PT S.O. IN ROOM 283 AT THIS TIME.
[2024-09-09] MEDS: KETOROLAC 30 MG/ML VIAL (*BKC) IV PUSH (13:14)
[2024-09-09] MEDS: SIMETHICONE 80 MG TAB.CHEW PO (13:16)
[2024-09-09] MEDS: oxyCODONE HCL (*CRX) 5 MG TAB IR 10 MG PO ×2 (13:31→19:54)
--- NOTE | 2024-09-09 15:06 | PM.GYNPNOP ---
TIN PLATER - A/P Postoperative Procedures: Procedures Operation Date: 09/09/24 09:30 Actual Procedure Side Surgeon p Robotic Assisted Total Laparoscopic Hysterectomy with Bilateral Salpingectomy Bilateral Pato Talbert MD Time Spent With Patient Time: Total time spent is greater than 50% in coordination of care (as documented) at patient's floor/unit and/or counseling patient: Time with patient: less than 15 minutes TIN PLATER- PN:Subj Post-Op Subjective Date/time seen: 09/09/24 15:06 Discussed findings surgery as well as planned for today. Upon further discussion patient she relates she has a lot of shortness of breath, fatigue, chest pain the past week and has been scheduled for iron infusions though these have not been set up through her pressure tester operator as of yet. Patient strongly desires to receive blood if she has done this in the past and feels markedly better once this has been done. Therefore we will order 2units pack red blood cells due to again the shortness of breath fatigue and chest pain that she has been experiencing over the past week then follow-up with CBC in the morning as scheduled. TIN PLATER - PN: Obj Data Vital Signs Vital Signs: Vital Signs - 24 hr 09/09/24 08:33 09/09/24 11:09 09/09/24 11:25 Temperature 97.5 F L 96.8 F L 97.1 F L Pulse Rate 73 91 50 L Respiratory Rate 16 12 10 L Blood Pressure 98/53 L 123/76 136/74 Pulse Oximetry 100 100 100 Oxygen Delivery Room Air Simple Face Mask Simple Face Mask Oxygen Flow Rate 10 10 09/09/24 11:40 09/09/24 11:55 09/09/24 12:10 Temperature Pulse Rate 66 51 L 71 Respiratory Rate 12 10 L 14 Blood Pressure 117/84 122/63 123/85 Pulse Oximetry 100 100 98 Oxygen Delivery Simple Face Mask Room Air Room Air Oxygen Flow Rate 10 09/09/24 12:25 09/09/24 12:45 09/09/24 13:00 Temperature 98.2 F Pulse Rate 58 L 94 Respiratory Rate 10 L 16 Blood Pressure 120/70 127/82 Pulse Oximetry 95 100 Oxygen Delivery Room Air Room Air Oxygen Flow Rate Intake/Output Intake/Output: Intake & Output 09/06/24 09/07/24 09/08/24 09/09/24 23:59 23:59 23:59 23:59 Intake Total 750 Output Total 75 Balance 675 Meds/Results Medications: Active Medications Generic Name Dose Route Start Last Admin Trade Name Freq PRN Reason Stop Dose Admin Acetaminophen 1,000 mg 09/09/24 12:35 09/09/24 13:20 Acetaminophen 500 Mg Tablet PO Not Given Q6HR [facility] Docusate Sodium 100 mg 09/09/24 17:00 Docusate Sodium 100 Mg Capsule PO BID [facility] Dextrose/Sodium Chloride 1,000 mls @ 125 mls/hr 09/09/24 12:35 09/09/24 13:00 Dextrose 5% Sodium Chloride 0.45% IV CONT Not Given .Q8H [facility] Ibuprofen 600 mg 09/10/24 06:00 Ibuprofen 600 Mg Tablet PO Q6HR [facility] Ketorolac Tromethamine 30 mg 09/09/24 12:35 09/09/24 13:14 Ketorolac 30 Mg/Ml Vial (*Bkc) IV PUSH 09/10/24 00:01 30 mg Q6HR [facility] Administration Miscellaneous Information 0 each 09/09/24 00:01 09/09/24 13:20 D-Amphetamine (Adderall) Is Nonformulary - Hold While Here? Use From Home? XX 10/09/24 00:00 Not Given CLARIFY [facility] Naloxone HCl 0.1 mg 09/09/24 12:35 Naloxone Hcl 0.4 Mg/Ml Vial IV PUSH Q2M PRN Respiratory rate less than 10 Non-Formulary Medication 60 mg 09/09/24 12:35 Dextroamphetamine-Amphetamine PO 10/09/24 12:34 DIRECTED [facility] Ondansetron HCl 4 mg 09/09/24 12:35 Ondansetron Inj 4 Mg/2 Ml Vial IV PUSH Q6H PRN Nausea And Vomiting Oxycodone HCl 5 mg 09/09/24 12:35 Oxycodone Hcl (*Crx) 5 Mg Tab Ir PO Q4H PRN Pain Rated 4-6 Oxycodone HCl 10 mg 09/09/24 12:35 09/09/24 13:31 Oxycodone Hcl (*Crx) 5 Mg Tab Ir PO 10 mg Q6H PRN Administration Pain Rated 7-10 Simethicone 80 mg 09/09/24 12:35 09/09/24 13:16 Simethicone 80 Mg Tab.Chew PO 80 mg TIDWM TIMA Administration Labs Labs: Laboratory Results - last 24 hr 09/09/24 07:35 POC Urine HCG, Qual Negative
--- NOTE | 2024-09-09 18:12 | WPDANESPN ---
Anes - Prog Note Post-Op Date/Time: 09/09/24 18:12 Cardiovascular status: normal Respiratory status: normal Airway patency: baseline Mental status: baseline Post-Op hydration status: normal Vital Signs: Last Vital Signs Temp 36.8 C 09/09/24 12:45 Pulse 94 09/09/24 12:45 Resp 16 09/09/24 12:45 BP 127/82 09/09/24 12:45 Pulse Ox 100 09/09/24 12:45 O2 Del Method Room Air 09/09/24 13:00 O2 Flow Rate 10 09/09/24 11:40 Pain Score (VAS): 09/13 I/O: Intake & Output 09/09/24 09/09/24 09/09/24 07:59 15:59 23:59 Intake Total 750 240 Output Total 75 240 Balance 675 0 09/09/24 09/09/24 07:35 17:54 POC Urine HCG, Qual Negative Blood Type Pending Antibody Screen Pending Crossmatch See Detail Post-procedural complaints: none Patient Feedback: Patient satisfied with anesthetic care.
[2024-09-09] MEDS: TUBING, BLOOD PLUM PUMP TUBING 1 EACH XX (20:08)
[2024-09-10] VITALS: BP 100/54; PULSE 65; RESP 16; TEMP 36.8; O2SAT 98
[2024-09-10] MEDS: oxyCODONE HCL (*CRX) 5 MG TAB IR 10 MG PO (03:16)
[2024-09-10 03:57] LABS: Basophils Percent Auto 0.3 % (0.2-1.2); Hemoglobin 9.6 g/dL (12.0-15.0); Immature Granulocyte Absolute 0.05 K/mm3 (0.00-0.031); Immature Granulocyte Percent A 0.6 % (0-0.5); Lymphocytes Absolute Auto 1.29 K/mm3 (0.9-3.2); Lymphocytes Percent Auto 14.4 % (18.3-44.2); Mean Corpuscular Hemoglobin 26.3 pg (26-34); Mean Corpuscular Volume 82.2 fl (80-100); Mean Platelet Volume 11.9 fl (7.4-10.4); Monocytes Absolute Auto 0.8 K/mm3 (0.1-0.6); Neutrophils Absolute Auto 6.8 K/mm3 (1.3-6.7); Neutrophils Percent Auto 75.7 % (45.5-73.1); Platelet Count Result 252 k/mm3 (150-375); Red Blood Count 3.65 M/mm3 (4.2-5.4); Red Cell Distribution Width 13.8 % (11.5-14.5)
[2024-09-10 05:00] VITALS: BP 108/61; PULSE 74; RESP 14; TEMP 37.1; O2SAT 100
[2024-09-10 07:15] VITALS: BP 98/71; PULSE 75; RESP 18; TEMP 36.3; O2SAT 99
[2024-09-10] MEDS: SIMETHICONE 80 MG TAB.CHEW PO (08:06)
[2024-09-10] MEDS: DOCUSATE SODIUM 100 MG CAPSULE PO (08:06)
--- NOTE | 2024-09-10 08:16 | WPDANESPN ---
Anes - Prog Note Post-Op Date/Time: 09/10/24 08:16 Cardiovascular status: normal Respiratory status: normal Airway patency: baseline Mental status: baseline Post-Op hydration status: normal Vital Signs: Last Vital Signs Temp 97.3 F L 09/10/24 07:15 Pulse 75 09/10/24 07:15 Resp 18 09/10/24 07:15 BP 98/71 L 09/10/24 07:15 Pulse Ox 99 09/10/24 07:15 O2 Del Method Room Air 09/09/24 20:00 O2 Flow Rate 10 09/09/24 11:40 Pain Score (VAS): 0/10 I/O: Intake & Output 09/09/24 09/10/24 09/10/24 23:59 07:59 15:59 Intake Total 240 350 Output Total 240 Balance 0 350 Laboratory Tests 09/10/24 03:22 09/09/24 09/09/24 09/10/24 07:35 17:54 03:22 WBC 9.0 RBC 3.65 L Hgb 9.6 L Hct 30.0 L MCV 82.2 MCH 26.3 MCHC 32.0 RDW 13.8 Plt Count 252 MPV 11.9 H Immature Gran % (Auto) 0.6 H Neut % (Auto) 75.7 H Lymph % (Auto) 14.4 L Louisa % (Auto) 9.0 H Eos % (Auto) 0.0 Baso % (Auto) 0.3 Lymph # (Auto) 1.29 Louisa # (Auto) 0.8 H Eos # (Auto) 0.0 Baso # (Auto) 0.0 Abs Immat Gran (auto) 0.05 H Absolute Neuts (auto) 6.8 H Absolute Nucleated RBC 0.000 Nucleated RBC % 0.0 POC Urine HCG, Qual Negative Blood Type O Positive Antibody Screen Negative Crossmatch See Detail Post-procedural complaints: none Patient Feedback: Patient satisfied with anesthetic care.
== END 2024-09-10 08:15 | disposition home or self-care (01) ==
LOC: ANHSURGERY 07:23 → ANHOB2 12:36
PROVIDERS: PCP Family Medicine; Visit Provider Obstetrics & Gynecology
PROC: (CPT 58571; principal; 2024-09-09 09:30)
DX: N92.1 Excessive and frequent menstruation with irregular cycle (principal); D64.9 Anemia, unspecified; N72 Inflammatory disease of cervix uteri; N87.9 Dysplasia of cervix uteri, unspecified; N88.8 Other specified noninflammatory disorders of cervix uteri; D25.0 Submucous leiomyoma of uterus
CPT/HCPCS: 58571; S2900; 36415; 36430; 85025; 85027; 86850; 86900; 86901; 86923; 88307; 99199; A9270; J0690; J1100; J1171; J1885; J2003; J2250; J2405; J2704; J3010; J7120; P9016

== ENCOUNTER 2025-01-13 08:02 | Outpatient (CLI) | payer OTHER, SELFPAY ==
--- OUTSIDE RECORDS SUMMARY | 2025-01-13 08:06 | XMS_ITS | Encounter Summary ---
Author Organization [facility] Address [address] [place] [address] Care Team Providers Care Environmental Epidemiologist Name Role Phone Roxanna Acosta MD Primary Care Provider [phone] Encounter Details Date Type Department Care Team (Late st Contact Info) Description 09/02/2003 Outpatient Historical [facility] Primary Care - [address] [place] [address] tOf [place] Social History Tobacco Use Types Packs/Day Years Used Date Smoking Tobacco: Never Assessed Comments Unknown Sex and Gender Information Value Date Recorded Sex Assigned at Not on file Legal Sex Female 4:02 AM MANAGER ENTRY Gender Identity Not on file Sexual Orientation Not on file documented as of this encounter Plan of Treatment Not on file documented as of this encounter Visit Diagnoses Not on filedocumented in this encounter Care Teams Environmental Epidemiologist Relationship Specialty Start Date End Date Roxanna Acosta MD PCP - General Family Practice 02/19/12 documented as of this encounter
--- OUTSIDE RECORDS SUMMARY | 2025-01-13 08:06 | XMS_ITS | Encounter Summary ---
Author Organization [facility] Address [address] [place] [address] Care Team Providers Care Accounts Receivable Supervisor Name Role Phone Roxanna Acosta MD [...] on file Legal Sex Female 4:02 AM DIRECTOR OF PRODUCT MARKETING Gender Identity Not on file Sexual Orientation Not on file documented as of this encounter Plan of Treatment Not on file documented as of this encounter Visit Diagnoses Diagnosis Other current maternal conditions classifiable elsewhere, antepartum- Primary documented in this encounter Care Teams Accounts Receivable Supervisor Relationship Specialty Start Date End Date Roxanna Acosta MD PCP - General Family Practice 02/19/12 documented as of this encounter
--- OUTSIDE RECORDS SUMMARY | 2025-01-13 08:06 | XMS_ITS | Encounter Summary ---
Author Organization [facility] Address [address] [place] [address] Care Team Providers Care Assistant Controller Name Role Phone Roxanna Acosta MD Primary Care Provider [phone] Encounter Details Date Type Department Care Team (Late st Contact Info) Description 11/27/2006 Orders Only [facility] Primary Care - [address] [place] [address] Barak Greenberg MD [address] [facility] [address] [place] [address] Social History Tobacco Use Types Packs/Day Years Used Date Smoking Tobacco: Never Assessed Comments Unknown Sex and Gender Information Value Date Recorded Sex Assigned at Not on file Legal Sex Female 4:02 AM SEWING MACHINE OPERATOR SEMIAUTOMATIC Gender Identity Not on file Sexual Orientation Not on file documented as of this encounter Progress Notes * Barak Greenberg MD - 12/24/2007 5:19 PM CDT TIME:02:18 pm PATIENT`S HOME PHONE: PATIENT`S WORK PHONE: PATIENT`S INSURANCE: [employer] [facility] WHO TOOK THE CALL: Arabella Davila A GENERAL INFORMATION PATIENT STATUS: Established Patient. LAST VISIT: 11-03-06 PCP: keon. ALTERNATIVE PHONE NUMBER: [phone] WHO CALLED: Patient called. CURRENT ALLERGY LIST: [facility] NUMBER: [phone] PROBLEMS: pt had miscarriage 09/10 got again [...] Fills, status: DISCONTINUED, 11/27/2006, Comment: called to [phone]...sylwia. LEXAPRO ORAL TABLET 10 MG, 1 Every [...] on filedocumented in this encounter Care Teams Assistant Controller Relationship Specialty Start Date End Date Roxanna Acosta MD PCP - General Family Practice 02/19/12 documented as of this encounter
--- OUTSIDE RECORDS SUMMARY | 2025-01-13 08:06 | XMS_ITS | Encounter Summary ---
Author Organization [facility] Address [address] [place] [address] Care Team Providers Care Airplane Mechanic Apprentice Name Role Phone Roxanna Acosta MD Primary Care Provider Encounter Details Date Type Department Care Team (Late st Contact Info) Description 02/15/2004 Outpatient Historical [facility] Primary Care - [address] [place] [address] Barak Greenberg MD [address] [facility] [address] [place], [place] [id number] Social History Tobacco Use Types Packs/Day Years Used Date Smoking Tobacco: Never Assessed Comments Unknown Sex and Gender Information Value Date Recorded Sex Assigned at Not on file Legal Sex Female 4:02 AM FIRE ALARM MECHANIC Gender Identity Not on file Sexual Orientation Not on file documented as of this encounter Plan of Treatment Not on file documented as of this encounter Visit Diagnoses Not on filedocumented in this encounter Care Teams Airplane Mechanic Apprentice Relationship Specialty Start Date End Date Roxanna Acosta MD PCP - General Family Practice 02/19/12 documented as of this encounter
--- OUTSIDE RECORDS SUMMARY | 2025-01-13 08:06 | XMS_ITS | Encounter Summary ---
Author Organization [facility] Address [address] [place] [address] Care Team Providers Care Embedded Firmware Engineer Name Role Phone Roxanna Acosta MD Primary Care Provider Encounter Details Date Type Department Care Team (Late st Contact Info) Description 07/15/2007 Outpatient Historical [facility] METAL SPRAY OPERATOR - [address] [place] [address] Enrique Mckinney MD [address] [facility] [address] [place] [address] Social History Tobacco Use Types Packs/Day Years Used Date Smoking Tobacco: Never Assessed Comments Unknown Sex and Gender Information Value Date Recorded Sex Assigned at Not on file Legal Sex Female 4:02 AM CABLE DRILLER Gender Identity Not on file Sexual Orientation Not on file documented as of this encounter Plan of Treatment Not on file documented as of this encounter Visit Diagnoses Not on filedocumented in this encounter Care Teams Embedded Firmware Engineer Relationship Specialty Start Date End Date Roxanna Acosta MD PCP - General Family Practice 02/19/12 documented as of this encounter
--- OUTSIDE RECORDS SUMMARY | 2025-01-13 08:06 | XMS_ITS | Encounter Summary ---
Author Organization [facility] Address [address] [place] [address] Care Team Providers Care Assembler Insulator Name Role Phone Roxanna Acosta MD Primary Care Provider [phone] Encounter Details Date Type Department Care Team (Late st Contact Info) Description 10/25/2007 Inpatient Historical [facility] Enrique Mckinney MD [address] [place] [address] Normal Delivery Social History Tobacco Use Types Packs/Day Years Used Date Smoking Tobacco: Never Assessed Comments Unknown Sex and Gender Information Value Date Recorded Sex Assigned at Not on file Legal Sex Female 4:02 AM DIRECTOR OF PSYCHOLOGY Gender Identity Not on file Sexual Orientation Not on file documented as of this encounter Plan of Treatment Not on file documented as of this encounter Procedures Procedure Name Priority Date/Time Associated Diagnosis Comments URINALYSIS W/REFLEX MICROSCOPIC Stat 10/25/2007 6:26 PM CDT documented in this encounter Results * URINALYSIS (10/25/2007 6:26 PM CDT) WBC UA Invalid Result 0 - 5 [facility] CLARITY UA Invalid Result Clear [facility] PROTEIN UA Invalid Result Negative [facility] EPITHELIAL CELLS, URINE Invalid Result [facility] BILIRUBIN UA Invalid Result Negative [facility] LEUKOCYTE ESTERASE UA Invalid Result Negative [facility] RBC UA Invalid Result 0 - 4 /HPF [facility] SPECIFIC GRAVITY UA Invalid Result 1.001 - 1.035 [facility] GLUCOSE UA Invalid Result Negative [facility] BLOOD UA Invalid Result Negative [facility] TRANSITIONAL EPI Invalid Result [facility] COLOR UA Invalid Result [facility] Comment: Lab was notified by Laura 10/25/07 7:35 PM that specimen was mislabeled. Patient's account has been credited. NITRITE UA Invalid Result Negative [facility] UROBILINOGEN UA Invalid Result <1 [facility] BACTERIA UA Invalid Result None Seen [facility] PH UA Invalid Result 5.0 - 8.0 [facility] KETONES UA Invalid Result Negative [facility] 10/25/2007 6:26 PM CDT 10/25/2007 6:30 PM CDT us Enrique Mckinney MD URINE ORDERABLES Edited [facility] [address] [place] [address] documented in this encounter Visit Diagnoses Diagnosis Normal delivery documented in this encounter Care Teams Assembler Insulator Relationship Specialty Start Date End Date Roxanna Acosta MD PCP - General Family Practice 02/19/12 documented as of this encounter
--- OUTSIDE RECORDS SUMMARY | 2025-01-13 08:06 | XMS_ITS | Encounter Summary ---
Author Organization [facility] Address [address] [place] [address] Care Team Providers Care Blacksmith Supervisor Name Role Phone Roxanna Acosta MD Primary Care Provider Encounter Details Date Type Department Care Team (Late st Contact Info) Description 02/17/2004 Outpatient Historical [facility] Barak Greenberg MD [address] [facility] [address] [place] [address] ABDOMINAL PAIN LUQ (Primary Dx) Social History Tobacco Use Types Packs/Day Years Used Date Smoking Tobacco: Never Assessed Comments Unknown Sex and Gender Information Value Date Recorded Sex Assigned at Not on file Legal Sex Female 4:02 AM SIGNAL PROCESSING ENGINEER Gender Identity Not on file Sexual Orientation Not on file documented as of this encounter Plan of Treatment Not on file documented as of this encounter Visit Diagnoses Diagnosis Abdominal pain, left upper quadrant- Primary documented in this encounter Care Teams Blacksmith Supervisor Relationship Specialty Start Date End Date Roxanna Acosta MD PCP - General Family Practice 02/19/12 documented as of this encounter
--- OUTSIDE RECORDS SUMMARY | 2025-01-13 08:06 | XMS_ITS | Encounter Summary ---
Author Organization [facility] Address [address] [address] Care Team Providers Care Microsoft Solutions Architect Name Role Phone Roxanna Acosta MD Primary Care Provider Encounter Details Date Type Department Care Team (Latest Contact Info) Description 10/07/2005 Outpatient Historical [facility] Cecil Schofield MD [address] [place] [phone] Kelechi Dixon MD NO ADDRESS ON FILE Other Specified Complication, Antepartum (Primary Dx) Social History Tobacco Use Types Packs/Day Years Used Date Smoking Tobacco: Never Assessed Comments Unknown Sex and Gender Information Value Date Recorded Sex Assigned at Not on file Legal Sex Female 4:02 AM CITY PLANNING ENGINEER Gender Identity Not on file Sexual Orientation Not on file documented as of this encounter Plan of Treatment Not on file documented as of this encounter Procedures Procedure Name Priority Date/Time Associated Diagnosis Comments CBC WITH DIFFERENTIAL Routine 10/07/2005 2:54 PM CITY PLANNING ENGINEER CBC WITH DIFFERENTIAL Routine 10/07/2005 2:54 PM CITY PLANNING ENGINEER documented in this encounter Results * (ABNORMAL) CBC WITH DIFFERENTIAL (10/07/2005 2:54 PM CITY PLANNING ENGINEER) NEUTROPHILS 72(H) 45 - 70 % INTERFAC [...] 0.20 K/uL INTERFACE SYSTEM 10/07/2005 2:54 PM CITY PLANNING ENGINEER us Kelechi Dixon MD HEMATOLOGY ORDERABLES Final Result Performing Organization Address [facility] Co de Phone Number INTERFACE SYSTEM Refer to clinic/hospital department * (ABNORMAL) CBC WITH DIFFERENTIAL (10/07/2005 2:54 PM CITY PLANNING ENGINEER) WBC 8.9 4.0 - 9.8 K/uL INTERFACE [...] 12.4 fL INTERFACE SYSTEM 10/07/2005 2:54 PM CITY PLANNING ENGINEER Kelechi Dixon MD HEMATOLOGY ORDERABLES Final Result Performing Organization Address [facility] Co de Phone Number INTERFACE SYSTEM Refer to clinic/hospital department documented in this encounter Visit Diagnoses Diagnosis Other specified complication, antepartum(656.83)- Primary Other specified complication, antepartum documented in this encounter Care Teams Microsoft Solutions Architect Relationship Specialty Start Date End Date Roxanna Acosta MD PCP - General Family Practice 02/19/12 documented as of this encounter
--- OUTSIDE RECORDS SUMMARY | 2025-01-13 08:06 | XMS_ITS | Encounter Summary ---
Author Organization [facility] Address [address] [place] [address] Care Team Providers Care Food Beverage Manager Name Role Phone Roxanna Acosta MD Primary Care Provider Encounter Details Date Type Department Care Team (Late st Contact Info) Description 06/18/2007 Outpatient Historical [facility] LATHE MACHINE OPERATOR - Medical [address] [address] Enrique Mckinney MD [address] [place] [phone] Social History Tobacco Use Types Packs/Day Years Used Date Smoking Tobacco: Never Assessed Comments Unknown Sex and Gender Information Value Date Recorded Sex Assigned at Not on file Legal Sex Female 4:02 AM LATHING SUPERVISOR Gender Identity Not on file Sexual Orientation Not on file documented as of this encounter Plan of Treatment Not on file documented as of this encounter Visit Diagnoses Not on filedocumented in this encounter Care Teams Food Beverage Manager Relationship Specialty Start Date End Date Roxanna Acosta MD PCP - General Family Practice 02/19/12 documented as of this encounter
--- OUTSIDE RECORDS SUMMARY | 2025-01-13 08:06 | XMS_ITS | Encounter Summary ---
Author Organization [facility] Address [address] [place] [address] Care Team Providers Care Psychology Professor Name Role Phone Roxanna Acosta MD Primary Care Provider Encounter Details Date Type Department Care Team (Late st Contact Info) Description 11/03/2006 Outpatient Historical [facility] Primary Care - [address] [place] [address] Barak Greenberg MD [address] [facility] [address] [place] [address] Social History Tobacco Use Types Packs/Day Years Used Date Smoking Tobacco: Never Assessed Comments Unknown Sex and Gender Information Value Date Recorded Sex Assigned at Not on file Legal Sex Female 4:02 AM GRAPPLE CREW LEADER Gender Identity Not on file Sexual Orientation [...] on filedocumented in this encounter Care Teams Psychology Professor Relationship Specialty Start Date End Date Roxanna Acosta MD PCP - General Family Practice 02/19/12 documented as of this encounter
--- OUTSIDE RECORDS SUMMARY | 2025-01-13 08:06 | XMS_ITS | Referral Summary ---
Author Organization [facility] Address [address] [place] [address] Care Team Providers Care Rib Matcher And Fitter Name Role Phone Camille Costello Primary Care Provi roxanne Allergies Active Allergy Reactions Criticality Noted Date Comments Benadryl Decongestant Other (See comments) Low 01/03 Feel bad physically and mentally Medications dextroamphetami ne-amphetamine XR (ADDERALL XR) 30 mg 24 hr capsule Take 1 capsule (30 mg total) by mouth energy efficiency finance manager before breakfast 1 Active ferrous sulfate ER [...] on file Legal Sex Female 7:01 PM STEAM FINISHER Gender Identity Not on file Sexual Orientation [...] A M CDT Height 157.5 cm (5' 2) 02/28/2024 10:14 AM CDT Body Mass Index 27.01 02/28/2024 10:14 AM CDT Plan of Treatment Not on file Insurance CHOICE PLUS [facility] Care Teams Rib Matcher And Fitter Relationship Specialty Start Date End Date Camille Costello DO [address] [place] [id number] PCP - General Family Medicine 09/27/21
--- OUTSIDE RECORDS SUMMARY | 2025-01-13 08:06 | XMS_ITS | Clinical Summary ---
Author Organization [address] Address [address] [place] [address] Care Team Providers Care Unloader Name Role Phone Camille Costello Primary Care Provi roxanne Allergies Active Allergy Reactions Criticality Noted Date Comments Benadryl Decongestant Other (See comments) Low 01/03 Feel bad physically and mentally Medications dextroamphetami ne-amphetamine XR (ADDERALL XR) 30 mg 24 hr capsule Take 1 capsule (30 mg total) by mouth periodontist before breakfast 1 Active ferrous sulfate ER [...] on file Legal Sex Female 7:01 PM WARPER FIXER Gender Identity Not on file Sexual Orientation [...] season) 2024 06/10/2021, 11/26/2020, 10/28/2020 Influenza Vaccine (Season Ended) 2025 06/17/2023, 05/19/2020 DTaP/Tdap/Td Vaccine (2 - Td or Tdap) 03/01/2031 03/01/2021 HPV Vaccines Aged Out No longer eligi ble based on patient's age to complete this topic Pneumococcal vaccine <65 Aged Out No longer eligible based on patient's age to complete this topic Insurance CHOICE PLUS [employer] [facility] Care Teams Unloader Relationship Specialty Start Date End Date Camille Costello DO [address] [place] [id number] PCP - General Family Medicine 09/27/21
--- OUTSIDE RECORDS SUMMARY | 2025-01-13 08:06 | XMS_ITS | Encounter Summary ---
Author Organization [facility] Address [address] [place] [address] Care Team Providers Care Crew Leader Gluing Name Role Phone Roxanna Acosta MD Primary Care Provider [phone] Encounter Details Date Type Department Care Team (Late st Contact Info) Description 01/13/2003 Outpatient Historical [facility] Primary Care - [address] [place] [phone] Otf Talavera Social History Tobacco Use Types Packs/Day Years Used Date Smoking Tobacco: Never Assessed Comments Unknown Sex and Gender Information Value Date Recorded Sex Assigned at Not on file Legal Sex Female 4:02 AM SUBSTATION SUPERINTENDENT Gender Identity Not on file Sexual Orientation Not on file documented as of this encounter Plan of Treatment Not on file documented as of this encounter Visit Diagnoses Not on filedocumented in this encounter Care Teams Crew Leader Gluing Relationship Specialty Start Date End Date Roxanna Acosta MD PCP - General Family Practice 02/19/12 documented as of this encounter
--- OUTSIDE RECORDS SUMMARY | 2025-01-13 08:06 | XMS_ITS | Encounter Summary ---
Author Organization [facility] Address [address] [place] [address] Care Team Providers Care Forklift Supervisor Name Role Phone Roxanna Acosta MD Primary Care Provider Encounter Details Date Type Department Care Team (Late st Contact Info) Description 03/27/2007 Outpatient Historical [facility] PENCIL MAKER - [address] [place] [address] Enrique Mckinney MD [address] [facility] [address] [place] [phone] Social History Tobacco Use Types Packs/Day Years Used Date Smoking Tobacco: Never Assessed Comments Unknown Sex and Gender Information Value Date Recorded Sex Assigned at Not on file Legal Sex Female 4:02 AM INFORMATION TECHNOLOGY MANAGER Gender Identity Not on file Sexual Orientation Not on file documented as of this encounter Plan of Treatment Not on file documented as of this encounter Visit Diagnoses Not on filedocumented in this encounter Care Teams Forklift Supervisor Relationship Specialty Start Date End Date Roxanna Acosta MD PCP - General Family Practice 02/19/12 documented as of this encounter
--- OUTSIDE RECORDS SUMMARY | 2025-01-13 08:06 | XMS_ITS | Encounter Summary ---
Author Organization [facility] Address [address] [place] [address] Care Team Providers Care Tobacco Stripping Machine Operator Name Role Phone Roxanna Acosta MD Primary Care Provider Encounter Details Date Type Department Care Team (Late st Contact Info) Description 05/20/2007 Outpatient Historical [facility] DESIGN PROJECT MANAGER - [address] [place] [address] Enrique Mckinney MD [address] [facility] [address] [place] [phone] Social History Tobacco Use Types Packs/Day Years Used Date Smoking Tobacco: Never Assessed Comments Unknown Sex and Gender Information Value Date Recorded Sex Assigned at Not on file Legal Sex Female 4:02 AM NEEDLE LOOM OPERATOR Gender Identity Not on file Sexual Orientation Not on file documented as of this encounter Plan of Treatment Not on file documented as of this encounter Visit Diagnoses Not on filedocumented in this encounter Care Teams Tobacco Stripping Machine Operator Relationship Specialty Start Date End Date Roxanna Acosta MD PCP - General Family Practice 02/19/12 documented as of this encounter
--- OUTSIDE RECORDS SUMMARY | 2025-01-13 08:06 | XMS_ITS | Encounter Summary ---
Author Organization [facility] Address [address] [place] [address] Care Team Providers Care Senior Software Development Engineer Name Role Phone Roxanna Acosta MD Primary Care Provider Encounter Details Date Type Department Care Team (Late st Contact Info) Description 06/18/2007 Outpatient Historical [facility] RESTORER LACE AND TEXTILES - Medical [address] [phone] Enrique Mckinney MD [address] [place] [phone] Social History Tobacco Use Types Packs/Day Years Used Date Smoking Tobacco: Never Assessed Comments Unknown Sex and Gender Information Value Date Recorded Sex Assigned at Not on file Legal Sex Female 4:02 AM VOICE OVER ARTIST Gender Identity Not on file Sexual Orientation Not on file documented as of this encounter Plan of Treatment Not on file documented as of this encounter Visit Diagnoses Not on filedocumented in this encounter Care Teams Senior Software Development Engineer Relationship Specialty Start Date End Date Roxanna Acosta MD PCP - General Family Practice 02/19/12 documented as of this encounter
--- OUTSIDE RECORDS SUMMARY | 2025-01-13 08:06 | XMS_ITS | Encounter Summary ---
Author Organization [facility] Address [address] [place] [address] Care Team Providers Care Narcotics Agent Name Role Phone Roxanna Acosta MD [...] on file Legal Sex Female 4:02 AM CELL POURER Gender Identity Not on file Sexual Orientation Not on file documented as of this encounter Plan of Treatment Not on file documented as of this encounter Procedures Procedure Name Priority Date/Time Associated Diagnosis Comments CBC WITH DIFFERENTIAL Routine 10/26/2004 11:50 AM CELL POURER CBC WITH DIFFERENTIAL Routine 10/26/2004 11:50 AM CELL POURER URINALYSIS W/REFLEX MICROSCOPIC Routine 10/26/2004 11:50 AM CELL POURER URINALYSIS W/REFLEX MICROSCOPIC Routine 10/26/2004 11:15 AM CELL POURER documented in this encounter Results * URINALYSIS (10/26/2004 11:50 AM CELL POURER) COLOR UA Yellow INTERFACE SYSTEM CLARITY UA [...] /HPF INTERFACE SYSTEM 10/26/2004 11:5 0 AM CELL POURER Freddie Márquez URINE ORDERABLES Final Result Performing Organization Address [facility] Phone Number INTERFACE SYSTEM Refer to clinic/hospital department * (ABNORMAL) CBC WITH DIFFERENTIAL (10/26/2004 11:50 AM CELL POURER) NEUTROPHILS 74(H) 45 - 70 % INTERFAC [...] K/uL INTERFACE SYSTEM 10/26/2004 11:5 0 AM CELL POURER Freddie Márquez HEMATOLOGY ORDERABLES Final Resu lt Performing Organization Address [facility] Phone Number INTERFACE SYSTEM Refer to clinic/hospital department * (ABNORMAL) CBC WITH DIFFERENTIAL (10/26/2004 11:50 AM CELL POURER) WBC 7.6 4.0 - 9.8 K/uL INTERFACE [...] fL INTERFACE SYSTEM 10/26/2004 11:5 0 AM CELL POURER Freddie Márquez HEMATOLOGY ORDERABLES Final Resu lt INTERFACE SYSTEM Refer to clinic/hospital department * (ABNORMAL) URINALYSIS (10/26/2004 11:15 AM CELL POURER) COLOR UA Colorless INTERFACE SYSTEM CLARITY UA [...] /HPF INTERFACE SYSTEM 10/26/2004 11:1 5 AM CELL POURER Freddie Márquez URINE ORDERABLES Final Result Performing Organization Address City/[facility]/ZIP Co de Phone Number INTERFACE SYSTEM Refer to clinic/hospital department documented in this encounter Visit Diagnoses Diagnosis Other current maternal conditions classifiable elsewhere, antepartum- Primary documented in this encounter Care Teams Narcotics Agent Relationship Specialty Start Date End Date Roxanna Acosta MD PCP - General Family Practice 02/19/12 documented as of this encounter
--- OUTSIDE RECORDS SUMMARY | 2025-01-13 08:06 | XMS_ITS | Encounter Summary ---
Author Organization [facility] Address [address] [place] [address] Care Team Providers Care Railroad Firer/Fireman Name Role Phone Roxanna Acosta MD Primary Care Provider Encounter Details Date Type Department Care Team (Late st Contact Info) Description 05/01/2006 Outpatient Historical [facility] Primary Care - [address] [place] [address] Barak Greenberg MD [address] [facility] [address] [place] [address] Social History Tobacco Use Types Packs/Day Years Used Date Smoking Tobacco: Never Assessed Comments Unknown Sex and Gender Information Value Date Recorded Sex Assigned at Not on file Legal Sex Female 4:02 AM PROFESSIONAL SOCCER PLAYER Gender Identity Not on file Sexual Orientation [...] on filedocumented in this encounter Care Teams Railroad Firer/Fireman Relationship Specialty Start Date End Date Roxanna Acosta MD PCP - General Family Practice 02/19/12 documented as of this encounter
--- OUTSIDE RECORDS SUMMARY | 2025-01-13 08:06 | XMS_ITS | Encounter Summary ---
Author Organization [facility] Address [address] [place] [address] Care Team Providers Care Ride Mechanic Name Role Phone Roxanna Acosta MD Primary Care Provider Encounter Details Date Type Department Care Team (Late st Contact Info) Description 09/08/2007 Outpatient Historical [facility] PRODUCTION GRADER - [address] [place] [address] Enrique Mckinney MD [address] [facility] [address] [place] [phone] Social History Tobacco Use Types Packs/Day Years Used Date Smoking Tobacco: Never Assessed Comments Unknown Sex and Gender Information Value Date Recorded Sex Assigned at Not on file Legal Sex Female 4:02 AM EXPLOSIVES OPERATOR Gender Identity Not on file Sexual Orientation Not on file documented as of this encounter Plan of Treatment Not on file documented as of this encounter Visit Diagnoses Not on filedocumented in this encounter Care Teams Ride Mechanic Relationship Specialty Start Date End Date Roxanna Acosta MD PCP - General Family Practice 02/19/12 documented as of this encounter
--- OUTSIDE RECORDS SUMMARY | 2025-01-13 08:06 | XMS_ITS | Encounter Summary ---
Author Organization [facility] Address [address] [place] [address] Care Team Providers Care Vacation Planner Name Role Phone Roxanna Acosta MD Primary Care Provider Encounter Details Date Type Department Care Team (Late st Contact Info) Description 09/30/2003 Outpatient Historical [facility] Primary Care - [address] [place] [phone] Otf Talavera Social History Tobacco Use Types Packs/Day Years Used Date Smoking Tobacco: Never Assessed Comments Unknown Sex and Gender Information Value Date Recorded Sex Assigned at Not on file Legal Sex Female 4:02 AM WOUND CARE CENTER CONSULTANT Gender Identity Not on file Sexual Orientation Not on file documented as of this encounter Plan of Treatment Not on file documented as of this encounter Visit Diagnoses Not on filedocumented in this encounter Care Teams Vacation Planner Relationship Specialty Start Date End Date Roxanna Acosta MD PCP - General Family Practice 02/19/12 documented as of this encounter
--- OUTSIDE RECORDS SUMMARY | 2025-01-13 08:06 | XMS_ITS | Encounter Summary ---
Author Organization [facility] Address [address] [place] [address] Care Team Providers Care Administrative Support Assistant Name Role Phone Roxanna Acosta MD Primary Care Provider [phone] Encounter Details Date Type Department Care Team (Late st Contact Info) Description 04/22/2007 Outpatient Historical [facility] HEALTH INSURANCE ADJUSTER - [address] [place] [address] Enrique Mckinney MD [address] [facility] [address] [place] [phone] Social History Tobacco Use Types Packs/Day Years Used Date Smoking Tobacco: Never Assessed Comments Unknown Sex and Gender Information Value Date Recorded Sex Assigned at Not on file Legal Sex Female 4:02 AM VP PACKAGING Gender Identity Not on file Sexual Orientation Not on file documented as of this encounter Plan of Treatment Not on file documented as of this encounter Visit Diagnoses Not on filedocumented in this encounter Care Teams Administrative Support Assistant Relationship Specialty Start Date End Date Roxanna Acosta MD PCP - General Family Practice 02/19/12 documented as of this encounter
--- OUTSIDE RECORDS SUMMARY | 2025-01-13 08:06 | XMS_ITS | Encounter Summary ---
Author Organization [facility] Address [address] [place] [address] Care Team Providers Care Car Scrubber Name Role Phone Roxanna Acosta MD Primary Care Provider [phone] Encounter Details Date Type Department Care Team (Late st Contact Info) Description 05/19/2012 Chart Note [facility] Services [address] [place] [address] Kyleigh Davis, Physical Therapist Social History Tobacco Use Types Packs/Day Years Used Date Smoking Tobacco: Never Smokeless Tobacco: Never Alcohol Use Standard Drinks/Week Comments No 0 (1 standard drink = 0.6 oz pur e alcohol) Comments Unknown Sex and Gender Information Value Date Recorded Sex Assigned at Not on file Legal Sex Female 4:02 AM SPECIALTY SALES CONSULTANT Gender Identity Not on file Sexual [...] you for this referral. Kyleigh Davis [facility] Therapy Services [address] [place] [address]. [address] [place] [phone] documented in this encounter Plan of Treatment Not on file documented as of this encounter Visit Diagnoses Not on filedocumented in this encounter Care Teams Car Scrubber Relationship Specialty Start Date End Date Roxanna Acosta MD PCP - General Family Practice 02/19/12 documented as of this encounter
--- OUTSIDE RECORDS SUMMARY | 2025-01-13 08:06 | XMS_ITS | Encounter Summary ---
Author Organization [facility] Address [address] [place] [address] Care Team Providers Care Medical Voucher Clerk Name Role Phone Roxanna Acosta MD Primary Care Provider [phone] Encounter Details Date Type Department Care Team (Late st Contact Info) Description 12/09/2005 Orders Only [facility] Primary Care - [address] [place] [address] Barak Greenberg MD [address] [facility] [address] [place] [address] Social History Tobacco Use Types Packs/Day Years Used Date Smoking Tobacco: Never Assessed Comments Unknown Sex and Gender Information Value Date Recorded Sex Assigned at Not on file Legal Sex Female 4:02 AM AOC AIRSPACE CONTROL OFFICER Gender Identity Not on file Sexual Orientation Not on file documented as of this encounter Progress Notes * Barak Greenberg MD - 05/13/2008 4:06 AM CDT TIME:09:47 am PATIENT`S HOME PHONE: PATIENT`S WORK PHONE: PATIENT`S INSURANCE: [employer] WHO TOOK THE CALL: [place] GENERAL INFORMATION PATIENT STATUS: Established Patient. LAST VISIT: 02-15-04 PCP: rian. ALTERNATIVE PHONE NUMBER: [phone] WHO CALLED: Patient called. CURRENT ALLERGY LIST: [facility] NUMBER: [phone] PROBLEMS: pt daughter had a staph infection [...] SPECIALTY REFERRAL: PODIATRY Dr. Mendez Panda ph: [phone] fax: [phone]. Electronically Signed by: Barak Greenberg MD on Friday, December 09, 2005 documented in this encounter Plan of Treatment Not on file documented as of this encounter Visit Diagnoses Not on filedocumented in this encounter Care Teams Medical Voucher Clerk Relationship Specialty Start Date End Date Roxanna Acosta MD PCP - General Family Practice 02/19/12 documented as of this encounter
--- OUTSIDE RECORDS SUMMARY | 2025-01-13 08:06 | XMS_ITS | Encounter Summary ---
Author Organization [facility] Address [address] [place] [address] Care Team Providers Care Health Information Management Director Name Role Phone Roxanna Acosta MD Primary Care Provider [phone] Encounter Details Date Type Department Care Team (Late st Contact Info) Description 07/06/2003 Outpatient Historical [facility] Primary Care - [address] [place] [phone] Otf Talavera Social History Tobacco Use Types Packs/Day Years Used Date Smoking Tobacco: Never Assessed Comments Unknown Sex and Gender Information Value Date Recorded Sex Assigned at Not on file Legal Sex Female 4:02 AM ICU MANAGER Gender Identity Not on file Sexual Orientation Not on file documented as of this encounter Plan of Treatment Not on file documented as of this encounter Visit Diagnoses Not on filedocumented in this encounter Care Teams Health Information Management Director Relationship Specialty Start Date End Date Roxanna Acosta MD PCP - General Family Practice 02/19/12 documented as of this encounter
--- OUTSIDE RECORDS SUMMARY | 2025-01-13 08:06 | XMS_ITS | Clinical Summary ---
Author Organization [facility] Address [address] [place] [address] Phone Care Team Providers Care Pharmacy Technician Instructor Name Role Phone Roxanna Acosta MD [...] Encounters Date Type Department Care Team Description 01/04/2025 External Device Data STL ABSTRACTION Provider, Abstract 12/28/2024 External Device Data STL ABSTRACTION Provider, Abstract 11/16/2024 External Device Data STL ABSTRACTION Provider, Abstract 10/13/2024 External Device Data STL ABSTRACTION Provider, Abstract [...] on file Legal Sex Female 4:02 AM MEMBER SERVICES REPRESENTATIVE Gender Identity Not on file Sexual [...] 10:02 AM CDT Height 157.5 cm (5' 2) 01/26/2024 2:44 PM CDT Body Mass Index 26.7 01/26/2024 2:44 PM CDT Plan of Treatment Health Maintenance Due Date Last Done Comments Pre-Diabetes and Diabetes Screening 1980 DTAP/TDAP/TD VACCINES (1 - Tdap) 1999 HEPATITIS B VACCINES (1 of 3 - 19+ 3-dose series) 1999 BREAST CANCER SCREENING 2020 07/17/2017 INFLUENZA VACCINE (#1) 2024 06/17/2023, 2019 PAP SMEAR 03/04/2025 03/04/2022, 04/0 04/2021, 09/29/2019, Additional history exists CERVICAL CANCER SCREENING 03/04/2027 HPV/Cotest (21-29) 03/04/2027 03/04/2022, 0 11/10/2020, 09/29/2019, Additional history exists HPV/Cotest (30-65) 03/04/2027 03/04/2022, 0 11/10/2020, 09/29/2019, Additional history exists HPV VACCINES Aged Out No longer eligi ble based on patient's age to complete this topic Procedures Procedure Name Priority Date/Time Associated Diagnosis Comments CERV/VAG CYTO AGE BASED SCREEN PAP Routine 11/10/2020 1:42 PM CDT Well woman exam with routine gynecological exam from Last 3 Months or Most Recently Relevant to Health Maintenance Results * CERV/VAG CYTO AGE BASED SCREEN PAP (11/10/2020 1:42 PM CDT) COMMENT (PAP): SEE COMMENT 2:34 PM CDT [facility] Comment: This order for age-based cervical cancer and STI screening follows ACOG guidelines(PB 168, 140, TGB225). See individual assays for performing site location. CLINICAL INFORMATION Information not provided 11/16/2020 2:34 PM CDT [facility] LAST MENSTRUAL PERIOD INFORMATION NOT PROVIDED 11/16/2020 [...] 11/16/2020 2:34 PM CDT [facility] COMMENT This Pap test has been evaluated with computer assisted technology. 11/16/2020 2:34 PM CDT [facility] FARM LABOR CONTRACTOR: SEE COMMENT 2020 2:34 PM CDT [facility] Comment: [place]SH[place], CT(ASCP) CT Screening location: [facility] [address] [place] [address] REVIEW FARM LABOR CONTRACTOR: SEE COMMENT 11/16/2020 2:34 PM CDT [facility] Comment: KMS, CT(ASCP) CT Screening location: [place] [address] [address] JUANY Bowser [facility] EXPLANATORY NOTE SEE COMMENT 021 2:34 PM CDT [facility] Comment: EXPLANATORY NOTE: The Pap is a [...] Detected Not Detected 11/16/2020 2:34 PM CDT [facility] Comment: Methodology: Extrusion Die Template Maker-Mediated Amplification This assay detects E6/E7 viral messenger RNA (mRNA) from 14 high-risk HPV types (16,18,31,33,35,39,45,51,52,56,58,59,66,68). The analytical performance characteristics of this assay have been determined by [employer]. The modifications have not been cleared or approved by the FDA. This assay has been validated pursuant to the CLIA regulations and is used for clinical purposes. For additional information, please refer to http://education.[employer].com/faq/IAC296s0 (This link if provided for information/ educational purposes only.) Genital SWAB OF ENDOCERVIX / Unknown Collection / Unknown 11/10/2020 1:42 PM CDT 11/10/2020 9:41 PM CDT Narrative [facility] - 11/16/2020 2:34 PM CDT Performing Organization Information: Site ID: [id number] Name: [facility] Address: [address] [place] [address] Director: Robby Steven D.O., MPH Site ID: [id number] [facility] Address: [address] [place] [address] Director: Parth Herrera Enrique Mckinney MD PATHOLOGY/CYTOLOGY ORDERABLES Final Result Performing Organization Address City/State/[place] Co de Phone Number [facility] [phone] from Last 3 Months or Most Recently Relevant to Health Maintenance Insurance Advance Directives For more information, please contact: [phone] * Full Code (Latest Code Status on [...] 11:26 PM 08/16/2009 7:12 AM Care Teams Pharmacy Technician Instructor Relationship Specialty Start Date End Date Roxanna Acosta MD PCP - General Family Practice 02/19/12
--- OUTSIDE RECORDS SUMMARY | 2025-01-13 08:06 | XMS_ITS | Encounter Summary ---
Author Organization [facility] Address [address] [place] [address] Care Team Providers Care Desk Sergeant Name Role Phone Roxanna Acosta MD Primary Care Provider [phone] Encounter Details Date Type Department Care Team (Late st Contact Info) Description 11/23/2003 Outpatient Historical [facility] Primary Care - [address] [place] [address] Otf Talavera Social History Tobacco Use Types Packs/Day Years Used Date Smoking Tobacco: Never Assessed Comments Unknown Sex and Gender Information Value Date Recorded Sex Assigned at Not on file Legal Sex Female 4:02 AM DORMITORY SUPERVISOR Gender Identity Not on file Sexual Orientation Not on file documented as of this encounter Plan of Treatment Not on file documented as of this encounter Visit Diagnoses Not on filedocumented in this encounter Care Teams Desk Sergeant Relationship Specialty Start Date End Date Roxanna Acosta MD PCP - General Family Practice 02/19/12 documented as of this encounter
--- OUTSIDE RECORDS SUMMARY | 2025-01-13 08:06 | XMS_ITS | Encounter Summary ---
Author Organization [facility] Address [address] [place] [address] Care Team Providers Care Endorsement Clerk Name Role Phone Roxanna Acosta MD Primary Care Provider Encounter Details Date Type Department Care Team (Latest Contact Info) Description 05/20/2007 Outpatient Historical [facility] PODIATRIC ASSISTANT - [address] [place] [address] Enrique Mckinney MD [address] [facility] [address] [facility] [place] [address] State, Incidental (Primary Dx) Social History Tobacco Use Types Packs/Day Years Used Date Smoking Tobacco: Never Assessed Comments Unknown Sex and Gender Information Value Date Recorded Sex Assigned at Not on file Legal Sex Female 4:02 AM SCREWHEAD POLISHER Gender Identity Not on file Sexual Orientation [...] uU/mL INTERFACE SYSTEM 05/20/2007 4:45 PM CDT Enrique Mckinney MD CHEMISTRY ORDERABLES Edited Performing Organization Address [facility] de Phone Number INTERFACE SYSTEM Refer [...] MD HEMATOLOGY ORDERABLES Edited Performing Organization Address [facility] Co de Phone Number [...] MD HEMATOLOGY ORDERABLES Edited Performing Organization Address [facility] Phone Number INTERFACE SYSTEM Refer to clinic/hospital department * HIV ANTIBODY W/REFLX CONFIRMATION (05/20/2007 4:45 PM CDT) HIV-1 AND 2 ABS NON-REACTI VE NON-REACT BREEZY INTERFACE SYSTEM Comment: Effective January 05, 2007, HIV 1/2 Antibody Screen with Reflexed Confirmati on has replaced HIV-1 Antibody Screen. HIV-1 Antibody Screen is no longer offered due to lack of available kits from the painter chassis. A NON-REACTIVE HIV 1/2 ANTIBODY RESULT DOES NOT EXCLUDE HIV INFECTION SINCE THE TIME FRAME FOR SEROCONVERSION IS VARIABLE. IF ACUTE HIV INFECTION IS SUSPECTED, ANTIBODY RETESTING AND NUCLEIC ACID AMPLIFICATION (HIV DNA/RNA) TESTING IS RECOMMENDED. Lab test performed by: [employer] [address] [place] [address] ALLIE CARDENAS MD 05/20/2007 4:45 PM CDT Enrique Mckinney MD CHEMISTRY ORDERABLES Edited Performing Organization Address [facility] Phone Number INTERFACE SYSTEM Refer to clinic/hospital department * HEPATITIS B SURFACE ANTIGEN (05/20/2007 4:45 PM CDT) HEPATITIS B SURFACE AG NON-REACTI VE NON-REACT BREEZY INTERFACE SYSTEM Comment: Lab test performed by: [employer] [id number] [employer] [id number] ALLIE CARDENAS MD 05/20/2007 4:45 PM CDT Enrique Mckinney MD CHEMISTRY ORDERABLES Edited Performing Organization Address [facility] de Phone Number INTERFACE SYSTEM Refer [...] WITH RUBELLA VIRUS. Lab test performed by: [employer] [id number] ALLIE CARDENAS MD 05/20/2007 4:45 PM CDT Enrique Mckinney MD CHEMISTRY ORDERABLES Edited Performing Organization Address [facility] Phone Number INTERFACE SYSTEM Refer to clinic/hospital department * RPR (05/20/2007 4:45 PM CDT) RPR NON-REACTI VE NON-REACT BREEZY INTERFACE SYSTEM Comment: Lab test performed by: [employer] [id number] ALLIE CARDENAS MD 05/20/2007 4:45 PM CDT Enrique Mckinney MD CHEMISTRY ORDERABLES Edited Performing Organization Address [facility] Co de Phone Number INTERFACE SYSTEM Refer to clinic/hospital department documented in this encounter Visit Diagnoses Diagnosis state, incidental- Primary documented in this encounter Care Teams Endorsement Clerk Relationship Specialty Start Date End Date Roxanna Acosta MD PCP - General Family Practice 02/19/12 documented as of this encounter
--- OUTSIDE RECORDS SUMMARY | 2025-01-13 08:06 | XMS_ITS | Encounter Summary ---
Author Organization [facility] Address [address] [place] [address] Care Team Providers Care Director Of Quality Name Role Phone Roxanna Acosta MD Primary Care Provider [phone] Encounter Details Date Type Department Care Team (Late st Contact Info) Description 05/01/2006 Orders Only [facility] Primary Care - [facility] [address] [place] [address] [address] [place] [address] Barak Greenberg MD [address] [facility] [address] [place] [address] Social History Tobacco Use Types Packs/Day Years Used Date Smoking Tobacco: Never Assessed Comments Unknown Sex and Gender Information Value Date Recorded Sex Assigned at Not on file Legal Sex Female 4:02 AM HAM STRIPPER Gender Identity Not on file Sexual Orientation Not on file documented as of this encounter Progress Notes * Barak Greenberg MD - 05/17/2008 6:57 PM CDT [facility] BARAK GREENBERG MD [address] [place] [address] May 01, 2006 ASHOK JIMENEZ [address] [place] [address] ASHOK JIMENEZ has been under our care [...] in this encounter Care Teams Director Of Quality Relationship Specialty Start Date End Date Roxanna Acosta MD PCP - General Family Practice 02/19/12 documented as of this encounter
--- OUTSIDE RECORDS SUMMARY | 2025-01-13 08:06 | XMS_ITS | Encounter Summary ---
Author Organization [employer] Address 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
--- OUTSIDE RECORDS SUMMARY | 2025-01-13 08:06 | XMS_ITS | Encounter Summary ---
Author Organization [facility] Address 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
--- OUTSIDE RECORDS SUMMARY | 2025-01-13 08:06 | XMS_ITS | Encounter Summary ---
Author Organization [facility] Address [address] [place] [address] Care Team Providers Care Senior Front End Developer Name Role Phone Roxanna Acosta MD Primary Care Provider [phone] Encounter Details Date Type Department Care Team (Late st Contact Info) Description 04/02/2007 Outpatient Historical [facility] - Medical [address] [address] Enrique Mckinney MD [address] [place] [address] Social History Tobacco Use Types Packs/Day Years Used Date Smoking Tobacco: Never Assessed Comments Unknown Sex and Gender Information Value Date Recorded Sex Assigned at Not on file Legal Sex Female 4:02 AM HELP DESK ASSISTANT Gender Identity Not on file Sexual Orientation Not on file documented as of this encounter Plan of Treatment Not on file documented as of this encounter Visit Diagnoses Not on filedocumented in this encounter Care Teams Senior Front End Developer Relationship Specialty Start Date End Date Roxanna Acosta MD PCP - General Family Practice 02/19/12 documented as of this encounter
--- OUTSIDE RECORDS SUMMARY | 2025-01-13 08:06 | XMS_ITS | Encounter Summary ---
Author Organization [facility] Address [address] [place] [address] Care Team Providers Care Flexographic Press Helper Name Role Phone Roxanna Acosta MD Primary Care Provider Encounter Details Date Type Department Care Team (Late st Contact Info) Description 12/09/2005 Outpatient Historical [facility] Primary Care - [address] [place] [address] Barak Greenberg MD [address] [facility] [address] [place] [address] Social History Tobacco Use Types Packs/Day Years Used Date Smoking Tobacco: Never Assessed Comments Unknown Sex and Gender Information Value Date Recorded Sex Assigned at Not on file Legal Sex Female 4:02 AM CUSTOMER ORDER CLERK Gender Identity Not on file Sexual [...] on filedocumented in this encounter Care Teams Flexographic Press Helper Relationship Specialty Start Date End Date Roxanna Acosta MD PCP - General Family Practice 02/19/12 documented as of this encounter
--- OUTSIDE RECORDS SUMMARY | 2025-01-13 08:06 | XMS_ITS | Encounter Summary ---
Author Organization [facility] Address [address] [place] [address] Care Team Providers Care Smash Hand Name Role Phone Roxanna Acosta MD Primary Care Provider Encounter Details Date Type Department Care Team (Latest Contact Info) Description 01/05/2009 Outpatient Historical [facility], [address] Enrique Mckinney MD [address] [place] [phone] Routine Gynecological Examination Social History Tobacco Use Types Packs/Day Years Used Date Smoking Tobacco: Never Alcohol Use Standard Drinks/Week Comments No 0 (1 standard drink = 0.6 oz pur e alcohol) Comments No Sex and Gender Information Value Date Recorded Sex Assigned at Not on file Legal Sex Female 4:[address] TECHNOLOGIST Gender Identity Not on file Sexual Orientation Not on file documented as of this encounter Plan of Treatment Not on file documented as of this encounter Visit Diagnoses Diagnosis Routine gynecological examination documented in this encounter Care Teams Smash Hand Relationship Specialty Start Date End Date Roxanna Acosta MD PCP - General Family Practice 02/19/12 documented as of this encounter
--- OUTSIDE RECORDS SUMMARY | 2025-01-13 08:06 | XMS_ITS | Continuity of Care Document ---
Author Organization [facility] Address [address] [place] [address] Phone Care Team Providers Care Trommel Tender Name Role Phone Trang Camille FORTUNE Unavailable [...] HG Pt inelig neg scrn depres OFFICE [id number] BODY MASS INDEX DOCD IMMUN ADMIN (INC [...] Diagnoses Date Provider Providers Copied on Encounter [facility], [address], [place], [place], [id number], tel:[phone] [facility] Complete Care No Information 3 Trang Obrien . [address] [place] [address], [id number] , . tel:[phone] [facility] [employer], [address] [place] [address], [id number], tel:[phone] [facility] Complete Care No Information 2 Trang Obrien . [address] [place] [address], [id number] , . tel:[phone] PREVENTATIVE- EST: 40-64 [facility], [id number] [place] [address], [id number], tel:[phone] [facility] Complete Care preventive exam (chief complaint) Well woman exam with routine gynecological examEncounter for screening mammogram for malignant neoplasm of breastADHD, predominantly inattentive type 2 Trang Obrien . [address] [place] [address], [id number] , . tel:[phone] Referring Provider: Camille Costello, [address] [place] [address], [place], [address] . tel:[phone] OFFICE [id number] ANDED [facility], [address] [place] [address], [id number], tel:[phone] [facility] Tele[facility] (chief complaint) ADHD, predominantly inattentive type 2 Trang Obrien . [address] [place] [address], [id number] , . tel:[phone] Referring Provider: Camille Costello, [address] [place] [address], [address] . tel:[phone] [facility] [address], [address], [place], [place], [id number], tel:[phone] [facility] No Information 1 Trang Obrien . [address] [place] [address], [id number] , . tel:[phone] Referring Provider: Camille Costello, [address] [place] [address], [address] . tel:[phone] [facility] [address], [address], [place], [place], [id number], tel:[phone] [facility] No Information 1 Trang Obrien . [address] [place] [address], [id number] , . tel:[phone] Referring Provider: Camille Costello, [address] [place] [address], [id number] . tel:[phone] [facility] [employer], [address], [place], [place], [id number], tel:[phone] [facility] Microcytic anemia 1 Trang Obrien . [address] [place] [address], [id number] , . tel:[phone] PREVENTATIVE- NEW: 40-64 [facility] [employer], [address], [place], [id number], tel:[phone] [facility] Complete Care ADD/ADHD initial visit (chief complaint)p reventive exam (chief complaint) ADHD, predominantly inattentive typeEstablishing care with new doctor, encounter forMeasles, mumps, rubella (MMR) vaccination status unknownEncntr screen mammogram for malignant neoplasm of breast 1 Trang Serranozabeth . [address] [facility], [address], [id number] , [place]. tel:[phone] Referring Provider: Camille Costello, [address] [facility] [address], [place], [address] . tel:[phone] Family History Family Member Type Diagnosis Age [...] er Payers Payer name Insurance type Covered green party ID Authorebonya tishayne(s) 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 [id number] [employer] CI [id number] [employer] CI [id number] [employer] CI [id number] Social History Type Description Quantity Date Captured [...] Order: Radiology Order SC REENING MAMMOGRAM (CAD) ([id number]), Sent on: Sent Future Order: Radiology Order SC REENING MAMMOGRAM (CAD) Bilateral breast ([id number]), Body Site: breast, Sent on: Sent History [...]
--- OUTSIDE RECORDS SUMMARY | 2025-01-13 08:06 | XMS_ITS | Encounter Summary ---
Author Organization [facility] Address [address] [place] [address] Care Team Providers Care Draw Machine Operator Name Role Phone Roxanna Acosta MD Primary Care Provider Encounter Details Date Type Department Care Team (Late st Contact Info) Description 09/15/2003 Outpatient Historical [facility] Primary Care - [address] [place] [phone] Otf Talavera Social History Tobacco Use Types Packs/Day Years Used Date Smoking Tobacco: Never Assessed Comments Unknown Sex and Gender Information Value Date Recorded Sex Assigned at Not on file Legal Sex Female 4:02 AM EKG MONITOR TECH Gender Identity Not on file Sexual Orientation Not on file documented as of this encounter Plan of Treatment Not on file documented as of this encounter Visit Diagnoses Not on filedocumented in this encounter Care Teams Draw Machine Operator Relationship Specialty Start Date End Date Roxanna Acosta MD PCP - General Family Practice 02/19/12 documented as of this encounter
--- OUTSIDE RECORDS SUMMARY | 2025-01-13 08:06 | XMS_ITS | Encounter Summary ---
Author Organization [facility] Address [address] [place] [address] Care Team Providers Care Vegetable Vendor Name Role Phone Roxanna Acosta MD Primary [...] on file Legal Sex Female 4:02 AM JUDICIAL ASSISTANT Gender Identity Not on file Sexual Orientation Not on file documented as of this encounter Plan of Treatment Not on file documented as of this encounter Visit Diagnoses Diagnosis Second-degree perineal laceration, with delivery- Primary documented in this encounter Care Teams Vegetable Vendor Relationship Specialty Start Date End Date Roxanna Acosta MD PCP - General Family Practice 02/19/12 documented as of this encounter
--- OUTSIDE RECORDS SUMMARY | 2025-01-13 08:07 | XMS_ITS | Encounter Summary ---
Author Organization [facility] Address [address] [place] [address] Care Team Providers Care Computer Numerical Control Programmer Name Role Phone Roxanna Acosta MD Primary Care Provider [phone] Encounter Details Date Type Department Care Team (Late st Contact Info) Description 12/30/[address] [facility] Primary Care - [address] [place] [address] Otf Talavera Social History Tobacco Use Types Packs/Day Years Used Date Smoking Tobacco: Never Assessed Comments Unknown Sex and Gender Information Value Date Recorded Sex Assigned at Not on file Legal Sex Female 4:02 AM MUSIC LIBRARY ASSISTANT Gender Identity Not on file Sexual Orientation Not on file documented as of this encounter Plan of Treatment Not on file documented as of this encounter Visit Diagnoses Not on filedocumented in this encounter Care Teams Computer Numerical Control Programmer Relationship Specialty Start Date End Date Roxanna Acosta MD PCP - General Family Practice 02/19/12 documented as of this encounter
--- OUTSIDE RECORDS SUMMARY | 2025-01-13 08:07 | XMS_ITS | Encounter Summary ---
Author Organization [facility] Address [address] [place] [address] Care Team Providers Care Tap Grinder Name Role Phone Roxanna Acosta MD Primary Care Provider [phone] Encounter Details Date Type Department Care Team (Late st Contact Info) Description 08/13/2007 Outpatient Historical [facility] CARDIOLOGY NURSE - Medical [address] [address] Enrique Mckinney MD [address] [place] [address] Social History Tobacco Use Types Packs/Day Years Used Date Smoking Tobacco: Never Assessed Comments Unknown Sex and Gender Information Value Date Recorded Sex Assigned at Not on file Legal Sex Female 4:02 AM MAINTENANCE PLANNER Gender Identity Not on file Sexual Orientation Not on file documented as of this encounter Plan of Treatment Not on file documented as of this encounter Visit Diagnoses Not on filedocumented in this encounter Care Teams Tap Grinder Relationship Specialty Start Date End Date Roxanna Acosta MD PCP - General Family Practice 02/19/12 documented as of this encounter
--- OUTSIDE RECORDS SUMMARY | 2025-01-13 08:07 | XMS_ITS | Encounter Summary ---
Author Organization [facility] Address [address] [place] [address] Care Team Providers Care Lobsterman Name Role Phone Tarcey Patel MD Primary Care Provider Tracey Patel MD Unavailable [phone] Encounter Details Date Type Department Care Team (Late st Contact Info) Description 04/16/2018 SS Outpatient Visit EXTERNAL NON-[facility] DEPT Tracey Patel MD [address] [place] [address] Social History Tobacco Use Types Packs/Day Years Used Date Smoking Tobacco: Never Smokeless Tobacco: Never Alcohol Use Standard Drinks/Week Comments Yes 0 (1 standard drink = 0.6 oz pur e alcohol) socially Comments No Sex and Gender Information Value Date Recorded Sex Assigned at Not on file Legal Sex Female 6:01 AM 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
--- OUTSIDE RECORDS SUMMARY | 2025-01-13 08:07 | XMS_ITS | Encounter Summary ---
Author Organization [facility] Address [address] [place] [address] Care Team Providers Care Airport Shuttle Driver Name Role Phone Roxanna Acosta MD Primary Care Provider [phone] Encounter Details Date Type Department Care Team (Late st Contact Info) Description 04/14/2002 Outpatient Historical [facility] Primary Care - [address] [place] [address] Otf Talavera Social History Tobacco Use Types Packs/Day Years Used Date Smoking Tobacco: Never Assessed Comments Unknown Sex and Gender Information Value Date Recorded Sex Assigned at Not on file Legal Sex Female 4:02 AM BALLOON ARTIST Gender Identity Not on file Sexual Orientation Not on file documented as of this encounter Plan of Treatment Not on file documented as of this encounter Visit Diagnoses Not on filedocumented in this encounter Care Teams Airport Shuttle Driver Relationship Specialty Start Date End Date Roxanna Acosta MD PCP - General Family Practice 02/19/12 documented as of this encounter
--- OUTSIDE RECORDS SUMMARY | 2025-01-13 08:07 | XMS_ITS | Encounter Summary ---
Author Organization [facility] Address [address] [place] [address] Care Team Providers Care Bus Escort Name Role Phone Roxanna Acosta MD Primary Care Provider Encounter Details Date Type Department Care Team (Late st Contact Info) Description 10/18/2002 Outpatient Historical [facility] Primary Care - [address] [place] [address] Otf Talavera Social History Tobacco Use Types Packs/Day Years Used Date Smoking Tobacco: Never Assessed Comments Unknown Sex and Gender Information Value Date Recorded Sex Assigned at Not on file Legal Sex Female 4:02 AM CONTAINER MAKER Gender Identity Not on file Sexual Orientation Not on file documented as of this encounter Plan of Treatment Not on file documented as of this encounter Visit Diagnoses Not on filedocumented in this encounter Care Teams Bus Escort Relationship Specialty Start Date End Date Roxanna Acosta MD PCP - General Family Practice 02/19/12 documented as of this encounter
--- OUTSIDE RECORDS SUMMARY | 2025-01-13 08:07 | XMS_ITS | Encounter Summary ---
Author Organization [facility] Address [address] [place] [address] Care Team Providers Care Bulk Filler Name Role Phone Roxanna Acosta MD Primary Care Provider [phone] Encounter Details Date Type Department Care Team (Late st Contact Info) Description 05/31/2002 Outpatient Historical [facility] Primary Care - [address] [place] [phone] Oft Talavera Social History Tobacco Use Types Packs/Day Years Used Date Smoking Tobacco: Never Assessed Comments Unknown Sex and Gender Information Value Date Recorded Sex Assigned at Not on file Legal Sex Female 4:02 AM AERODYNAMIC CONSULTANT Gender Identity Not on file Sexual Orientation Not on file documented as of this encounter Plan of Treatment Not on file documented as of this encounter Visit Diagnoses Not on filedocumented in this encounter Care Teams Bulk Filler Relationship Specialty Start Date End Date Roxanna Acosta MD PCP - General Family Practice 02/19/12 documented as of this encounter
--- OUTSIDE RECORDS SUMMARY | 2025-01-13 08:07 | XMS_ITS | Encounter Summary ---
Author Organization [facility] Address [address] [place] [address] Care Team Providers Care Furniture Removalist Name Role Phone Roxanna Acosta MD Primary Care Provider Encounter Details Date Type Department Care Team (Late st Contact Info) Description 09/11/2007 Outpatient Historical [facility] BARBED WIRE MACHINE OPERATOR - [address] [place] [address] Enrique Mckinney MD [address] [facility] [address] [place] [phone] Social History Tobacco Use Types Packs/Day Years Used Date Smoking Tobacco: Never Assessed Comments Unknown Sex and Gender Information Value Date Recorded Sex Assigned at Not on file Legal Sex Female 4:02 AM BOARD SAW RUNNER Gender Identity Not on file Sexual Orientation Not on file documented as of this encounter Plan of Treatment Not on file documented as of this encounter Visit Diagnoses Not on filedocumented in this encounter Care Teams Furniture Removalist Relationship Specialty Start Date End Date Roxanna Acosta MD PCP - General Family Practice 02/19/12 documented as of this encounter
--- OUTSIDE RECORDS SUMMARY | 2025-01-13 08:07 | XMS_ITS | Encounter Summary ---
Author Organization [facility] Address [address] [place] [address] Care Team Providers Care Pipe Fitter Street Service Name Role Phone Roxanna Acosta MD Primary Care Provider Encounter Details Date Type Department Care Team (Late st Contact Info) Description 12/20/2002 Outpatient Historical [facility] Primary Care - [address] [place] [phone] Otf Talavera Social History Tobacco Use Types Packs/Day Years Used Date Smoking Tobacco: Never Assessed Comments Unknown Sex and Gender Information Value Date Recorded Sex Assigned at Not on file Legal Sex Female 4:02 AM 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
--- OUTSIDE RECORDS SUMMARY | 2025-01-13 08:07 | XMS_ITS | Encounter Summary ---
Author Organization [facility] Address [address] [place] [address] Care Team Providers Care Moulder Operator Name Role Phone Roxanna Acosta MD Primary Care Provider [phone] Encounter Details Date Type Department Care Team (Late st Contact Info) Description 08/13/2007 Outpatient Historical [facility] TRANSPORTATION SECURITY OFFICER - Medical [address] [address] Enrique Mckinney MD [address] [place] [phone] Social History Tobacco Use Types Packs/Day Years Used Date Smoking Tobacco: Never Assessed Comments Unknown Sex and Gender Information Value Date Recorded Sex Assigned at Not on file Legal Sex Female 4:02 AM SALES EFFECTIVENESS MANAGER Gender Identity Not on file Sexual Orientation Not on file documented as of this encounter Plan of Treatment Not on file documented as of this encounter Visit Diagnoses Not on filedocumented in this encounter Care Teams Moulder Operator Relationship Specialty Start Date End Date Roxanna Acosta MD PCP - General Family Practice 02/19/12 documented as of this encounter
--- OUTSIDE RECORDS SUMMARY | 2025-01-13 08:07 | XMS_ITS | Encounter Summary ---
Author Organization [facility] Address [address] [place] [address] Care Team Providers Care Cdl Bulk Driver Name Role Phone Roxanna Acosta MD Primary Care Provider Encounter Details Date Type Department Care Team (Late st Contact Info) Description 07/20/2007 Outpatient Historical [facility] [address] [place] [phone] Naveed Means MD [address] [place] [address] [place] [address] Social History Tobacco Use Types Packs/Day Years Used Date Smoking Tobacco: Never Assessed Comments Unknown Sex and Gender Information Value Date Recorded Sex Assigned at Not on file Legal Sex Female 4:02 AM RUG RECEIVING CLERK Gender Identity Not on file Sexual Orientation Not on file documented as of this encounter Plan of Treatment Not on file documented as of this encounter Visit Diagnoses Not on filedocumented in this encounter Care Teams Cdl Bulk Driver Relationship Specialty Start Date End Date Roxanna Acosta MD PCP - General Family Practice 02/19/12 documented as of this encounter
--- OUTSIDE RECORDS SUMMARY | 2025-01-13 08:07 | XMS_ITS | Encounter Summary ---
Author Organization [facility] Address [address] [place] [address] Care Team Providers Care Reservations Agent Name Role Phone Roxanna Acosta MD Primary Care Provider Encounter Details Date Type Department Care Team (Late st Contact Info) Description 07/29/2007 Outpatient Historical [facility] Enrique Mckinney MD [address] [phone] Social History Tobacco Use Types Packs/Day Years Used Date Smoking Tobacco: Never Assessed Comments Unknown Sex and Gender Information Value Date Recorded Sex Assigned at Not on file Legal Sex Female 4:02 AM THEATRE DIRECTOR Gender Identity Not on file Sexual Orientation Not on file documented as of this encounter Plan of Treatment Not on file documented as of this encounter Procedures Procedure Name Priority Date/Time Associated Diagnosis Comments URINALYSIS WITH REFLEX CULTURE Routine 07/29/2007 12:18 PM THEATRE DIRECTOR URINALYSIS W/REFLEX MICROSCOPIC Routine 07/29/2007 12:18 PM THEATRE DIRECTOR documented in this encounter Results * URINALYSIS (07/29/2007 12:18 PM THEATRE DIRECTOR) COLOR UA Pale Yellow INTERFAC E SYSTEM [...] Negative INTERFACE SYSTEM 07/29/2007 12:1 8 PM THEATRE DIRECTOR Enrique Mckinney MD URINE ORDERABLES Edited Performing Organization Address [facility] de Phone Number INTERFACE SYSTEM Refer to clinic/hospital department * URINALYSIS WITH REFLEX CULTURE (07/29/2007 12:18 PM THEATRE DIRECTOR) URINE CULTURE ORDER Not indicated INTERFACE SYSTEM Comment: Criteria for a reflex culture include one or more of the following: Abn ormal nitrite, leukocyte esterase, WBCs or RBCs. Lack of qualifying criteria does not exclude the possiblity of a urinary tract infection. Dilute urine, drug interference, etc. may decrease the sensitivity of the criteria analytes. 07/29/2007 12:1 8 PM THEATRE DIRECTOR Enrique Mckinney MD URINE ORDERABLES Edited Performing Organization Address [facility] Phone Number INTERFACE SYSTEM Refer to clinic/hospital department documented in this encounter Visit Diagnoses Not on filedocumented in this encounter Care Teams Reservations Agent Relationship Specialty Start Date End Date Roxanna Acosta MD PCP - General Family Practice 02/19/12 documented as of this encounter
--- OUTSIDE RECORDS SUMMARY | 2025-01-13 08:07 | XMS_ITS | Encounter Summary ---
Author Organization [facility] Address [address] [place] [address] Care Team Providers Care Lawyer Criminal Name Role Phone Roxanna Acosta MD Primary Care Provider [phone] Encounter Details Date Type Department Care Team (Latest Contact Info) Description 06/14/2002 Outpatient Historical [facility] Otf Talavera UNDIAGNOSED CARDIAC MURMURS (Primary Dx) Social History Tobacco Use Types Packs/Day Years Used Date Smoking Tobacco: Never Assessed Comments Unknown Sex and Gender Information Value Date Recorded Sex Assigned at Not on file Legal Sex Female 4:02 AM TOEING STOCKINGS Gender Identity Not on file Sexual Orientation Not on file documented as of this encounter Plan of Treatment Not on file documented as of this encounter Visit Diagnoses Diagnosis Undiagnosed cardiac murmurs- Primary documented in this encounter Care Teams Lawyer Criminal Relationship Specialty Start Date End Date Roxanna Acosta MD PCP - General Family Practice 02/19/12 documented as of this encounter
--- OUTSIDE RECORDS SUMMARY | 2025-01-13 08:07 | XMS_ITS | Clinical Summary ---
Author Organization [facility] Address [address] [place] [address] Care Team Providers Care Information Security Manager Name Role Phone Tracey Patel MD Primary Care Provider Source Comments [facility],non-owned Affiliates and Associated Physician Practices is amultiple site organization consisting of ambulatory clinics and hospital sitesin [place], [place], [place] and [place]. This disclosure is being madepursuant to the Care Everywhere program and may not contain all information available regarding this patient. Last updated 18.[employer] Allergies No known active allergies Medications * Be aware that medications may not be up to date on this document. Alwaysverify current medications with the patient. amphetamine-dex troamphetamine (ADDERALL) 10 MG tablet Take 1 (one) tablet by mouth daily with lunch 30 tablet 03/01/2021 Active amphetamine-dex troamphetamine XR 24hr (ADDERALL XR) 30 MG capsule Take 1 (one) capsule by mouth every morning 30 capsule 03/01/2021 Active Active Problems Problem Noted Date Diagnosed Date Attention deficit hyperactiv ity disorder (ADHD), predominantly inattentive type 04/16/2018 Left breast lump 07/09/2017 Resolved Problems Problem Noted Date Diagnosed Date Resolved Date Cyst of right ovary 06/17/2017 07/09/20 17 Immunizations Immunization Administration Dates Next Due INFLUENZA VACCINE, QUADR. [...] on file Legal Sex Female 6:01 AM PRODUCTION ASSOCIATE Gender Identity Not on file Sexual [...] 10:58 AM CDT Height 157.5 cm (5' 2) 05/19/2020 10:58 AM CDT Body Mass Index [...] VACCINE ( - 2023-2 5 season) 2024 DEPRESSION SCREENING 08/04/2024 INFLUENZA VACCINE (Season Ended) 2025 05/19/2020 ZOSTER VACCINE (1 of 2) 2030 HIB VACCINE Aged Out No longer eligi ble based on patient's age to complete this topic HPV VACCINE Aged Out No longer eligi ble based on patient's age to complete this topic MENINGOCOCCAL (Group B) VACCINE SHARED DECISION-MAKING Aged Out No longer eligible based on patient's age to complete this topic MENINGOCOCCAL GROUPS A/C/Y/W VACCINE Aged Out No longer eligible based on patient's age to complete this topic PNEUMOCOCCAL VACCINE Aged Out No long er eligible based on patient's age to complete this topic Procedures Procedure Name Priority Date/Time Associated Diagnosis Comments MAMMO BILAT DIAGNOSTIC Routine 07/17/2017 10:10 AM PRODUCTION ASSOCIATE Left breast lump PAP IG LB +HPV APTIMA REFLEX 16,18/45 Routine 07/09/2017 3:07 PM PRODUCTION ASSOCIATE Well woman exam with routine gynecological exam Screening for HPV (human papillomavirus) COMPREHENSIVE METABOLIC PANEL Routine 06/17/2017 10:22 AM PRODUCTION ASSOCIATE Annual physical exam LIPID PROFILE W TCHOL/HDL Routine 06/17/2017 10:22 AM PRODUCTION ASSOCIATE Annual physical exam from Last 3 Months or Most Recently Relevant to Health Maintenance Results * MAMMO DIAG DIRECT DIGITAL IMAGE BILA [id number] (07/17/2017 10:10 AM PRODUCTION ASSOCIATE) Anatomical Region Laterality Modality Bilateral Mammography 07/17/2017 11:1 7 AM PRODUCTION ASSOCIATE Narrative 07/17/2017 11:24 AM PRODUCTION ASSOCIATE DIGITAL BILATERAL DIAGNOSTIC MAMMOGRAMS WITH CAD CORRELATION [...] if suspicious findings are present clinically. An [employer] Certified Facility. [facility] Breast Centers utilize [employer] as a reminder system to notify patients of their next recommended mammogram. Edited by Jennifer Stockton on 07/17/2017 11:23 AM us Joyce Saldivar MD MAMMO ORDERABLES Final Result * (ABNORMAL) PAP IG LB +HPV APTIMA REFLEX 16,18/45 (07/09/2017 3:07 PM PRODUCTION ASSOCIATE) Diagnosis (A) [facility] ACCOUNT BILL Comment: EPITHELIAL [...] UTERINE CERVIX / Unknown 07/09/2017 3:07 PM PRODUCTION ASSOCIATE 07/09/2017 Narrative [facility] ACCOUNT BILL - 07/15/2017 5:10 PM PRODUCTION ASSOCIATE Source.............Cervix LMP / Prev Treat...SWN=[id number] No. of containers..01 ThinPrep Vial Resulting Agency Comment [facility] [phone] us Joyce Saldivar MD LAB - PATHOLOGY/CYTOLOGY ORDER CARLOS ENRIQUE Final Result Performing Organization Address City/[facility]/ZIP Co de Phone Number [facility] ACCOUNT BILL [address] [place] [address] * LIPID PROFILE W TCHOL/HDL (06/17/2017 10:22 AM PRODUCTION ASSOCIATE) Cholesterol 185 <200 mg/dL [facility] ACCOUNT BILL [...] BLOOD SPECIMEN / Unknown 06/17/2017 10:22 AM PRODUCTION ASSOCIATE 06/17/2017 Narrative Resulting Agency Comment [facility] [place] [address] [place] [phone] Tracey Patel MD LAB - CHEMISTRY ORDERABLES Heather l Result Performing Organization Address City/[facility] Co de Phone Number [facility] ACCOUNT BILL [address] [place] [address] * (ABNORMAL) COMPREHENSIVE METABOLIC PANEL (06/17/2017 10:22 AM PRODUCTION ASSOCIATE) Glucose 79 74 - 106 mg/dL [facility] [...] BLOOD SPECIMEN / Unknown 06/17/2017 10:22 AM PRODUCTION ASSOCIATE 06/17/2017 Narrative Resulting Agency Comment [facility] [address] [place] [phone] us Tracey Patel MD LAB - CHEMISTRY ORDERABLES Heather l Result [facility] ACCOUNT BILL [address] [place] [address] from Last 3 Months or Most Recently Relevant to Health Maintenance Insurance [facility] Care Teams Information Security Manager Relationship Specialty Start Date End Date Tracey Patel MD PCP - General Family Medicine 06/13/17
--- OUTSIDE RECORDS SUMMARY | 2025-01-13 08:07 | XMS_ITS | Encounter Summary ---
Author Organization [facility] Address [address] [place] [address] Care Team Providers Care Clay Digger Name Role Phone Roxanna Acosta MD Primary Care Provider Encounter Details Date Type Department Care Team (Late st Contact Info) Description 06/14/2002 Outpatient Historical [facility] Support Serv. (Adt Cardiology-[facility]) [address] 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
--- OUTSIDE RECORDS SUMMARY | 2025-01-13 08:07 | XMS_ITS | Encounter Summary ---
Author Organization [facility] Address [address] [place] [address] Care Team Providers Care Agricultural Research Director Name Role Phone Roxanna Acosta MD Primary Care Provider Encounter Details Date Type Department Care Team (Latest Contact Info) Description 08/17/2007 Outpatient Historical [facility] Naveed Means MD [address] [facility] [address] [place] [phone] Other Specified Complication, Antepartum Social History Tobacco Use Types Packs/Day Years Used Date Smoking Tobacco: Never Assessed Comments Unknown Sex and Gender Information Value Date Recorded Sex Assigned at Not on file Legal Sex Female 4:02 AM UNIT TRUST MANAGER Gender Identity Not on file Sexual Orientation Not on file documented as of this encounter Plan of Treatment Not on file documented as of this encounter Visit Diagnoses Diagnosis Other specified complication, antepartum(646.83) Other specified complication, antepartum documented in this encounter Care Teams Agricultural Research Director Relationship Specialty Start Date End Date Roxanna Acosta MD PCP - General Family Practice 02/19/12 documented as of this encounter
--- OUTSIDE RECORDS SUMMARY | 2025-01-13 08:07 | XMS_ITS | Encounter Summary ---
Author Organization [facility] Address [address] [place] [address] Care Team Providers Care Second Miller Name Role Phone Roxanna Acosta MD Primary Care Provider [phone] Encounter Details Date Type Department Care Team (Latest Contact Info) Description 10/05/2007 Outpatient Historical [facility], [address] Epifanio Jones MD NO ADDRESS ON FILE Supervision of Other Normal Social History Tobacco Use Types Packs/Day Years Used Date Smoking Tobacco: Never Assessed Comments Unknown Sex and Gender Information Value Date Recorded Sex Assigned at Not on file Legal Sex Female 4:02 AM STAFF SUBMARINE WARFARE OFFICER Gender Identity Not on file Sexual Orientation Not on file documented as of this encounter Plan of Treatment Not on file documented as of this encounter Procedures Procedure Name Priority Date/Time Associated Diagnosis Comments (BROTH-ENRICHED) GROUP B STREP DETECTION Routine 10/05/2007 5:22 PM STAFF SUBMARINE WARFARE OFFICER documented in this encounter Results * STREPTOCOCCUS GROUP B CULTURE (10/05/2007 5:22 PM STAFF SUBMARINE WARFARE OFFICER) PRELIMINARY REPORT Pending INTERFACE SYSTEM FINAL REPORT No Streptococcus Group B isolated. INTERFACE SYSTEM Vaginal 10/05/2007 5:22 PM STAFF SUBMARINE WARFARE OFFICER 10/05/2007 5:26 PM STAFF SUBMARINE WARFARE OFFICER us Epifanio Jones MD MICROBIOLOGY - GENERAL ORDERABL ES Final Result INTERFACE SYSTEM Refer to clinic/hospital department documented in this encounter Visit Diagnoses Diagnosis Supervision of other normal documented in this encounter Care Teams Second Miller Relationship Specialty Start Date End Date Roxanna Acosta MD PCP - General Family Practice 02/19/12 documented as of this encounter
--- OUTSIDE RECORDS SUMMARY | 2025-01-13 08:07 | XMS_ITS | Encounter Summary ---
Author Organization [facility] Address [address] [place] [address] Care Team Providers Care Airport Planner Name Role Phone Roxanna Acosta MD Primary Care Provider [phone] Encounter Details Date Type Department Care Team (Late st Contact Info) Description 12/29/2002 Outpatient Historical [facility] Primary Care - [address] [place] [address] Otf Talavera Social History Tobacco Use Types Packs/Day Years Used Date Smoking Tobacco: Never Assessed Comments Unknown Sex and Gender Information Value Date Recorded Sex Assigned at Not on file Legal Sex Female 4:02 AM DRUPAL PHP DEVELOPER Gender Identity Not on file Sexual Orientation Not on file documented as of this encounter Plan of Treatment Not on file documented as of this encounter Visit Diagnoses Not on filedocumented in this encounter Care Teams Airport Planner Relationship Specialty Start Date End Date Roxanna Acosta MD PCP - General Family Practice 02/19/12 documented as of this encounter
--- OUTSIDE RECORDS SUMMARY | 2025-01-13 08:07 | XMS_ITS | Encounter Summary ---
Author Organization [facility] Address [address] [place] [address] Care Team Providers Care Outsole Beveler Name Role Phone Roxanna Acosta MD Primary Care Provider [phone] Encounter Details Date Type Department Care Team (Latest Contact Info) Description 07/16/2007 Outpatient Historical [facility] Enrique Mckinney MD [address] [facility] [address] [address] Naveed Means MD [address] [place] [address] Other Specified Complication, Antepartum Social History Tobacco Use Types Packs/Day Years Used Date Smoking Tobacco: Never Assessed Comments Unknown Sex and Gender Information Value Date Recorded Sex Assigned at Not on file Legal Sex Female 4:02 AM SLEEP TECHNOLOGIST Gender Identity Not on file Sexual Orientation Not on file documented as of this encounter Plan of Treatment Not on file documented as of this encounter Visit Diagnoses Diagnosis Other specified complication, antepartum(646.83) Other specified complication, antepartum documented in this encounter Care Teams Outsole Beveler Relationship Specialty Start Date End Date Roxanna Acosta MD PCP - General Family Practice 02/19/12 documented as of this encounter
--- OUTSIDE RECORDS SUMMARY | 2025-01-13 08:07 | XMS_ITS | Encounter Summary ---
Author Organization [facility] Address [address] [place] [address] Care Team Providers Care Director Emergency Department Name Role Phone Roxanna Acosta MD Primary Care Provider [phone] Encounter Details Date Type Department Care Team (Late st Contact Info) Description 07/07/2002 Outpatient Historical [facility] Primary Care - [address] [place] [phone] Otf Talavera Social History Tobacco Use Types Packs/Day Years Used Date Smoking Tobacco: Never Assessed Comments Unknown Sex and Gender Information Value Date Recorded Sex Assigned at Not on file Legal Sex Female 4:02 AM WARE DRESSER Gender Identity Not on file Sexual Orientation Not on file documented as of this encounter Plan of Treatment Not on file documented as of this encounter Visit Diagnoses Not on filedocumented in this encounter Care Teams Director Emergency Department Relationship Specialty Start Date End Date Roxanna Acosta MD PCP - General Family Practice 02/19/12 documented as of this encounter
--- OUTSIDE RECORDS SUMMARY | 2025-01-13 08:07 | XMS_ITS | Encounter Summary ---
Author Organization [facility] Address [address] [place] [address] Care Team Providers Care Laundry Washer Name Role Phone Roxanna Acosta MD Primary Care Provider Encounter Details Date Type Department Care Team (Late st Contact Info) Description 07/15/2007 Outpatient Historical [facility] BENZOL STILL OPERATOR - [address] [place] [address] Enrique Mckinney MD [address] [facility] [address] [place] [phone] Social History Tobacco Use Types Packs/Day Years Used Date Smoking Tobacco: Never Assessed Comments Unknown Sex and Gender Information Value Date Recorded Sex Assigned at Not on file Legal Sex Female 4:02 AM CONSTRUCTION PROJECT COORDINATOR Gender Identity Not on file Sexual Orientation Not on file documented as of this encounter Plan of Treatment Not on file documented as of this encounter Visit Diagnoses Not on filedocumented in this encounter Care Teams Laundry Washer Relationship Specialty Start Date End Date Roxanna Acosta MD PCP - General Family Practice 02/19/12 documented as of this encounter
--- OUTSIDE RECORDS SUMMARY | 2025-01-13 08:07 | XMS_ITS | Encounter Summary ---
Author Organization [facility] Address 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
--- OUTSIDE RECORDS SUMMARY | 2025-01-13 08:07 | XMS_ITS | Encounter Summary ---
Author Organization [facility] Address [address] [place] [address] Care Team Providers Care Psych Therapist Name Role Phone Roxanna Acosta MD Primary Care Provider Encounter Details Date Type Department Care Team (Late st Contact Info) Description 10/05/2007 Outpatient Historical [facility] SPUN PASTE MACHINE OPERATOR - Medical [place] [address] [facility] [address] [phone] Epifanio Jones MD NO ADDRESS ON FILE Social History Tobacco Use Types Packs/Day Years Used Date Smoking Tobacco: Never Assessed Comments Unknown Sex and Gender Information Value Date Recorded Sex Assigned at Not on file 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
[2025-01-13 08:17] LABS: Hematocrit 43.8 % (37.0-47.0); Hemoglobin 14.4 g/dL (12.0-15.0); Mean Corpuscular HGB Conc 32.9 g/dl (32-36); Mean Corpuscular Hemoglobin 29.9 pg (26-34); Mean Corpuscular Volume 90.9 fl (80-100); Platelet Count Result 232 k/mm3 (150-375); Red Blood Count 4.82 M/mm3 (4.2-5.4); Red Cell Distribution Width 14.4 % (11.5-14.5); White Blood Count 5.4 K/mm3 (4.5-10.0)
[2025-01-13 08:29] LABS: Alanine Aminotransferase 13 U/L (6-35); Albumin Level 4.4 g/dL (3.5-5.1); Alkaline Phosphatase 63 U/L (38-126); Anion Gap 6 mmol/L (4-12); Aspartate Amino Transferase 25 U/L (14-36); Blood Urea Nitrogen 15 mg/dL (7-17); Carbon Dioxide 24 mmol/L (22-30); Chloride 105 mmol/L (98-107); Cholesterol 181 mg/dL (0-200); Estimated Glomerular Filt Rate > 60; Glucose 93 mg/dL (65-110); HDL Direct 87 mg/dL; Potassium 3.9 mmol/L (3.4-5.0); Sodium 135 mmol/L (137-145); Total Protein 7.1 g/dL (6.3-8.2); Triglycerides 65 mg/dL (<150)
[2025-01-13 08:41] LABS: LDL Cholesterol Direct 70 mg/dL
[2025-01-13 08:47] LABS: Iron 100 ug/dL (37-170)
[2025-01-13 08:56] LABS: Percent Iron Saturation 30 % (20-50)
== END 2025-01-13 08:03 | disposition home or self-care (01) ==
LOC: ANHLAB 08:02
PROVIDERS: PCP Family Medicine; Visit Provider Family Medicine
DX: F41.9 Anxiety disorder, unspecified (principal); F90.9 Attention-deficit hyperactivity disorder, unspecified type; E66.3 Overweight; D50.9 Iron deficiency anemia, unspecified; Z79.899 Other long term (current) drug therapy
CPT/HCPCS: 36415; 80053; 80061; 82728; 83540; 83550; 84443; 85027

== ENCOUNTER 2025-07-07 07:00 | Outpatient (CLI) | payer OTHER, SELFPAY ==
--- OUTSIDE RECORDS SUMMARY | 2022-10-03 01:33 | XMS_ITS | Continuity of Care Document ---
Author Organization [facility] Address [address] [place] [address] Phone Care Team Providers Care Teaching Manager Name Role Phone Trang Camille FORTUNE Unavailable Unavailabl e Allergies, Adverse Reactions, Alerts Substance Reaction Status Criticality No Known Allergies Active No Inform ation Medications Medication Instructions Dosage Effective Dates (start - stop) Status Comments Adderall XR 20 mg capsule,extended release take 2 capsule by oral route every day in the morning upon awakening 40 MG - Active Adderall 20 mg tablet take 1 tablet by oral route every day before breakfast 20 MG - Active ferrous sulfate 325 mg (65 mg iron) tablet,delayed release take 1 tablet by oral route every day 1 tablet - Active Procedures Procedure Date SCREENING FOR PAP (OBTAINING SPECIMEN) A PREVENTATIVE-EST: 40-64 BODY MASS INDEX DOCD SYST BP LT 130 MM HG DIAST BP < 80 MM HG Pt inelig neg scrn depres OFFICE [id number] BODY MASS INDEX DOCD IMMUN ADMIN (INC PERCUTANEOUS) SINGLE, F IRST INJ MMR IMMUNIZATION IMMUN ADMIN (INC PERCUTANEOUS) SINGLE, F IRST INJ MMR IMMUNIZATION ROUTINE VENIPUNCTURE PREVENTATIVE-NEW: 40-64 IMMUN ADMIN (INC PERCUTANEOUS) SINGLE, F IRST INJ TDAP INTRAMUSCULAR USE Advance Directives Directive Yes / No Effective Date File Name Life Support Not Answered N/A N/A Intubation Not Answered N/A N/A Antibiotics Not Answered N/A N/A IV Fluid Support Not Answered N/A N/A Tube Feed Not Answered N/A N/A Other Directive N/A N/A WARNING:The information contained in this section is historical and is provided for information only and does not constitute a legal document or any assurance that the information is still accurate. Please verify the information with the avalos of the legal document before using it for clinical purposes. Encounters Encounter Description Practice Location Reason(s) For Visit Diagnoses Date Provider Providers Copied on Encounter [facility], [address], [place], [place], [id number], tel:[phone] [facility] Complete Care No Information 3 Trang Obrien . [address] [place] [address], [id number] , . tel:[phone] [facility], [id number] [place] [address], [id number], tel:[phone] [facility] Complete Care No Information 2 Trang Obrien . [address] [place] [address], [id number] , . tel:[phone] PREVENTATIVE- EST: 40-64 [facility], [id number] [place] [address], [id number], tel:[phone] [facility] Complete Care preventive exam (chief complaint) Well woman exam with routine gynecological examEncounter for screening mammogram for malignant neoplasm of breastADHD, predominantly inattentive type 2 Trang Obrien . [address] [place] [address], [id number] , . tel:[phone] Referring Provider: Camille Costello, [address] [place] [address], [place], [address] . tel:[phone] OFFICE TDXSS-LMT-ITS ANDED [facility], [id number] [place] [address], [id number], tel:[phone] [facility] Telehealth (chief complaint) ADHD, predominantly inattentive type 2 Trang Obrien . [address] [place] [address], [id number] , . tel:[phone] Referring Provider: Camille Costello, [address] [place] [address], [id number] . tel:[phone] [facility], [address], [place], [place], [id number], tel:[phone] [facility] No Information 1 Trang Obrien . [address] [place] [address], [id number] , . tel:[phone] Referring Provider: Camille Costello, [address] [place] [address], [id number] . tel:[phone] [facility], [address], [place], [place], [id number], tel:[phone] [facility] No Information 1 Trang Obrien . [address] [place] [address], [id number] , . tel:[phone] Referring Provider: Camille Costello, [address] [place] [address], [id number] . tel:[phone] [facility], [address], [place], [place], [id number], tel:[phone] [facility] Microcytic anemia 1 Trang Obrien . [address] [place] [address], [id number] , . tel:[phone] PREVENTATIVE- NEW: 40-64 [facility], [address], [place], [id number], tel:[phone] [facility] ADD/ADHD initial visit (chief complaint)p reventive exam (chief complaint) ADHD, predominantly inattentive typeEstablishing care with new doctor, encounter forMeasles, mumps, rubella (MMR) vaccination status unknownEncntr screen mammogram for malignant neoplasm of breast 1 Trang Serranozabeth . [facility], [address], [id number] , [place]. tel:[phone] Referring Provider: Camille Costello, [address] [facility] [address], [place], [address] . tel:[phone] Family History Family Member Type Diagnosis Age At Onset Mother Problem malignant neoplasm of skin Immunizations Vaccine Date Status Comments Pfizer (Diluent Reconstitute d) COVID19 Vaccine, 0.3mL per dose, 2 doses, administered 21 days apart administered Source: Other Provid er MMR administered Source: New Imm unization Record MMR administered Source: New Imm unization Record Tdap administered Source: New Imm unization Record Pfizer (Diluent Recon[employer] d) COVID19 Vaccine, 0.3mL per dose, 2 doses, administered 21 days apart administered Source: Other Provid er Pfizer (Diluent Reconstitute d) COVID19 Vaccine, 0.3mL per dose, 2 doses, administered 21 days apart administered Source: Other Provid er Payers Payer name Insurance type Covered libertarian ID Authorebonya tishayne(s) 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 [id number] [employer] CI [id number] [employer] CI [id number] [employer] CI [id number] Social History Type Description Quantity Date Captured Comments Alcohol Use Details Unknown Caffeine Use Details Unknown Tobacco Use Status No Information Smoking Status No Information Sex Female Chief Complaint And Reason For Visit No Information Reason For Referral Reason For Referral No Information Plan Of Treatment Date Type Action Status Referral Ordered: SCREENING MAMMOGRAM (CAD) ordered Referral Ordered: SCREENING MAMMOGRAM (CAD) Bilateral breast ordered Future Order: Radiology Order SC REENING MAMMOGRAM (CAD) ([id number]), Sent on: Sent Future Order: Radiology Order SC REENING MAMMOGRAM (CAD) Bilateral breast ([id number]), Body Site: breast, Sent on: Sent History Of Present Illness Encounter Date Complaint History Of Prese nt Illness preventive exam Last LMP was 05/2022. Negative for: breast discharge, breast lump(s) and breast pain. Positive for: breast self exam. Diet healthy. She does drink alcohol. Additional information: Pt presents for physical exam for work and annual pap. Pt has a HGISL lesion in 2018 and a leep. Since then paps have been normal. 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 Pt takes 30 mg of Adderall XR around 5-6 am and it lasts until noon. Is not doing enough during that window. She then takes Adderall 10 mg at noon and it lasts until 4pm. Is similarly not doing enough and she struggles to manage tasks at home after work.. Telehealth Patient presents via telehealth for follow-up on her ADHD. She reports that her symptoms are currently well-controlled. She takes her prescription for Adderall XR 30 mg around 730 as she is driving to work. 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 The medication lasts until roughly noon at which time she will take the Adderall 10 mg. She then feels like the medicine is on board until roughly 5 or 6 PM as she is winding down for the day. She feels less concentration and focus in the evening but says that this is not an issue for her. Overall she feels like the medication works well at current dosing. No reported side effects preventive exam Her menses is re gular. Pertinent negatives include depression and urinary incontinence. Diet healthy. The patient does not use tobacco. She does drink alcohol. 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 ADD/ADHD initial visit ONSET is before age 12 years with a duration of greater than 6 months.SYMPTOMS: Present in the following settings: home, school, work and friends/relatives. They interfere with or reduce the quality of social, academic and occupational functioning. HPI SUMMARY: Patient's sons were diagnosed with ADHD and in observing them, she noticed that she had a lot of the same symptoms. She has struggled throughout her life with disorganization, procrastination, trouble concentrating on reading, messiness, and social anxiety. She struggled in school growing up. 2-3 Years ago she was diagnosed on ADHD and had significant improvement in symptoms with medicine. She is currently on Adderall XR 30 mg which she takes around 7am. Medicine lasts until around 1pm, when she then takes Adderall 10 mg. This combo typically lasts until dinnertime. She says it has been effective and other than increased thirst, no notable SE..CO-MORBID CONDTIONS: Does not have anxiety, depression, OCD, learning disability, ODD or tics. 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 Recommendation is at least: strength exercise 2-3x a week, either 75 minutes of vigorous cardio (spin, HIIT, running, etc) or 150 minutes of moderate cardio (walking, riding a bike, gardening, etc.)- Make sure you are eating a varied diet with lots of fruits and vegetables. Your protein and your Carbohydrate (pasta, rice, bread, potato) should make up no more than half your plate- Make sure to wear sunscreen everyday. Harmful UV rays can pass through clouds, windshields, and windows- Come see us at least once a year to keep all your screenings, labs, and vaccines up to date Related to Well woman exam with routine gynecological exam Since you are doing well, will plan to continue current dosing of your Adderall XR and Adderall. Continue to pay attention to how long the medication lasts for, how well the medication works, and any side effects. 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
--- OUTSIDE RECORDS SUMMARY | 2025-07-07 07:04 | XMS_ITS | Encounter Summary ---
Author Organization [facility] Address [address] [place] [address] Care Team Providers Care Breast Trimmer Name Role Phone Roxanna Acosta MD Primary Care Provider Encounter Details Date Type Department Care Team (Late st Contact Info) Description 07/15/2007 Outpatient Historical [facility] HEAD SWAMPER - [address] [place] [address] Enrique Mckinney MD [address] [place] [address] [place] [phone] Social History Tobacco Use Types Packs/Day Years Used Date Smoking Tobacco: Never Assessed Comments Unknown Sex and Gender Information Value Date Recorded Sex Assigned at Not on file 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
--- OUTSIDE RECORDS SUMMARY | 2025-07-07 07:04 | XMS_ITS | Encounter Summary ---
Author Organization [facility] Address [address] [place] [address] Care Team Providers Care Integration Engineer Name Role Phone Roxanna Acosta MD Primary Care Provider Encounter Details Date Type Department Care Team (Late st Contact Info) Description 04/22/2007 Outpatient Historical [facility] HOME AND SCHOOL VISITOR - [address] [place] [address] Enrique Mckinney MD [address] [place] [address] [place] [phone] Social History Tobacco Use Types Packs/Day Years Used Date Smoking Tobacco: Never Assessed Comments Unknown Sex and Gender Information Value Date Recorded Sex Assigned at Not on file Legal Sex Female 4:02 AM PLATINUM AND PALLADIUM KETTLE TENDER Gender Identity Not on file Sexual Orientation Not on file documented as of this encounter Plan of Treatment Not on file documented as of this encounter Visit Diagnoses Not on filedocumented in this encounter Care Teams Integration Engineer Relationship Specialty Start Date End Date Roxanna Acosta MD PCP - General Family Practice 02/19/12 documented as of this encounter
--- OUTSIDE RECORDS SUMMARY | 2025-07-07 07:04 | XMS_ITS | Encounter Summary ---
Author Organization [facility] Address 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 Gender Identity Not on file Sexual Orientation Not on file documented as of this encounter Plan of Treatment Not on file documented as of this encounter Procedures Procedure Name Priority Date/Time Associated Diagnosis Comments URINALYSIS W/REFLEX MICROSCOPIC Stat 10/25/2007 6:26 PM CDT documented in this encounter Results * URINALYSIS (10/25/2007 6:26 PM CDT) WBC UA Invalid Result 0 - 5 [facility] CLARITY UA Invalid Result Clear [facility] PROTEIN UA Invalid Result Negative [facility] EPITHELIAL CELLS, URINE Invalid Result [facility] BILIRUBIN UA Invalid Result Negative [facility] LEUKOCYTE ESTERASE UA Invalid Result Negative [facility] RBC UA Invalid Result 0 - 4 /HPF [facility] SPECIFIC GRAVITY UA Invalid Result 1.001 - 1.035 [facility] GLUCOSE UA Invalid Result Negative [facility] BLOOD UA Invalid Result Negative [facility] TRANSITIONAL EPI Invalid Result [facility] COLOR UA Invalid Result [facility] Comment: Lab was notified by Laura 10/25/07 7:35 PM that specimen was mislabeled. Patient's account has been credited. NITRITE UA Invalid Result Negative [facility] UROBILINOGEN UA Invalid Result <1 [facility] BACTERIA UA Invalid Result None Seen [facility] PH UA Invalid Result 5.0 - 8.0 [facility] KETONES UA Invalid Result Negative [facility] 10/25/2007 6:26 PM CDT 10/25/2007 6:30 PM CDT us Enrique Mckinney MD URINE ORDERABLES Edited [facility] [address] [facility] [address] documented in this encounter Visit Diagnoses Diagnosis Normal delivery documented in this encounter Care Teams Minor League Baseball Player Relationship Specialty Start Date End Date Roxanna Acosta MD PCP - General Family Practice 02/19/12 documented as of this encounter
--- OUTSIDE RECORDS SUMMARY | 2025-07-07 07:04 | XMS_ITS | Encounter Summary ---
Author Organization [facility] Address [address] [place] [address] Care Team Providers Care Crisis Intervention Counselor Name Role Phone Roxanna Acosta MD Primary Care Provider Encounter Details Date Type Department Care Team (Late st Contact Info) Description 11/27/2006 Orders Only [facility] Primary Care - [address] [place] [address] Barak Greenberg MD [address] [facility] [address] [place] [address] Social History Tobacco Use Types Packs/Day Years Used Date Smoking Tobacco: Never Assessed Comments Unknown Sex and Gender Information Value Date Recorded Sex Assigned at Not on file 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 LAST VISIT: 11-03-06 PCP: keon. ALTERNATIVE PHONE NUMBER: [phone] WHO CALLED: Patient called. CURRENT ALLERGY LIST: [facility] NUMBER: [phone] PROBLEMS: pt had miscarriage 09/10 got again and had miscarriage 11/24/06, pts anxiety increased and wants to know if you can increase her Lexapro now that she is not ?...slywia SECTION 1: DOCTOR`S RESPONSE: riangd 11/27/06 at 02:32 pm okay to increase, if she wants to try to get again she should let me know, we should stop the lexapro MEDICATIONS: Call in to Pharmacy LEXAPRO ORAL TABLET 5 MG, 1 tab each day, 30 Dispensed, 5 Fills, status: DISCONTINUED, 11/27/2006, Comment: called to [phone]...sylwia. LEXAPRO ORAL TABLET 10 MG, 1 Every [...] on filedocumented in this encounter Care Teams Crisis Intervention Counselor Relationship Specialty Start Date End Date Roxanna Acosta MD PCP - General Family Practice 02/19/12 documented as of this encounter
--- OUTSIDE RECORDS SUMMARY | 2025-07-07 07:04 | XMS_ITS | Encounter Summary ---
Author Organization [facility] Address [address] [place] [address] Care Team Providers Care Diesel Roller Operator Name Role Phone Roxanna Acosta MD Primary Care Provider Encounter Details Date Type Department Care Team (Late st Contact Info) Description 10/05/2007 Outpatient Historical [facility] MOTOR BOSS - Medical [place] [address] 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
--- OUTSIDE RECORDS SUMMARY | 2025-07-07 07:04 | XMS_ITS | Clinical Summary ---
Author Organization [facility] Address [address] [place] [address] Phone Care Team Providers Care Automatic Presser Name Role Phone Roxanna Acosta MD Primary [...] Encounters Date Type Department Care Team Description 07/05/2025 External Device Data STL ABSTRACTION Provider, Abstract 06/21/2025 External Device Data STL ABSTRACTION Provider, Abstract 06/08/2025 External Device Data STL ABSTRACTION Provider, Abstract 06/01/2025 External Device Data STL ABSTRACTION Provider, Abstract 05/25/2025 External Device Data STL ABSTRACTION Provider, Abstract 04/19/2025 External Device Data STL ABSTRACTION Provider, Abstract [...] on file Legal Sex Female 4: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 CHECKROOM ATTENDANT Gender Identity Not on file Sexual [...] Health Maintenance Due Date Last Done Comments DTAP/TDAP/TD VACCINES (1 - Tdap) 1999 HEPATITIS B VACCINES (1 of 3 - 19+ 3-dose series) 1999 HPV VACCINES (1 - 3-dose SCD M series) 2007 BREAST CANCER SCREENING 2020 07/17/2017 INFLUENZA VACCINE (#1) 2025 06/17/2023, 2019 PAP SMEAR 03/04/2025 03/04/2022, 04/0 04/2021, 09/29/2019, Additional history exists COLORECTAL SCREENING 2025 Colorectal Cancer Screening 2025 FIT-DNA Q 3 years 2025 FIT/FOBT Q 1 year 2025 Flex Sig/CT Colonography Q 5 years 2025 CERVICAL CANCER SCREENING 03/04/2027 HPV/Cotest (21-29) 03/04/2027 03/04/2022, 0 11/10/2020, 09/29/2019, Additional history exists HPV/Cotest (30-65) 03/04/2027 03/04/2022, 0 11/10/2020, 09/29/2019, Additional history exists Procedures Procedure Name Priority Date/Time Associated Diagnosis [...] STI screening follows ACOG guidelines(PB 168, 140, [id number]). See individual assays for performing site location. [...] 2:34 PM CDT [facility] PIECER UP: SEE COMMENT 2020 2:34 PM CDT [facility] Comment: ASHLEY, CT(ASCP) CT Screening location: [facility] [address] [place] [address] REVIEW PIECER UP: SEE COMMENT 11/16/2020 2:34 PM CDT [facility] Comment: KMS, CT(ASCP) CT Screening location: [place] [address] [place] [address] EXPLANATORY NOTE SEE COMMENT 021 2:34 PM [...] CDT [facility] Comment: Methodology: Science Teacher-Mediated Amplification This assay detects E6/E7 viral messenger RNA (mRNA) from 14 high-risk HPV types (16,18,31,33,35,39,45,51,52,56,58,59,66,68). The analytical performance characteristics of this assay have been determined by [facility]. The modifications have not been cleared or approved by the FDA. This assay has been validated pursuant to the CLIA regulations and is used for clinical purposes. For additional information, please refer to http://education.KILTR/faq/VPI333p7 (This link if provided for information/ educational purposes only.) Genital SWAB OF ENDOCERVIX / Unknown Collection / Unknown 11/10/2020 1:42 PM CDT 11/10/2020 9:41 PM CDT Narrative [facility] - 11/16/2020 2:34 PM CDT Performing Organization Information: Site ID: [id number] [facility] Address: [address] [place] [address] Director: Robby Steven D.O., MPH Site ID: [id number] [facility] Address: [address] [place] [address] Director: Parth Herrera Enrique Mckinney MD PATHOLOGY/CYTOLOGY ORDERABLES Final Result [facility] [phone] from Last 3 Months or Most Recently Relevant to Health Maintenance Insurance [facility] [id number] [facility] [address] Advance Directives For more information, please contact: [phone] * Full Code (Latest Code Status on [...] 11:26 PM 08/16/2009 7:12 AM Care Teams Automatic Presser Relationship Specialty Start Date End Date Roxanna Acosta MD PCP - General Family Practice 02/19/12
--- OUTSIDE RECORDS SUMMARY | 2025-07-07 07:04 | XMS_ITS | Encounter Summary ---
Author Organization [facility] Address [address] [place] [address] Care Team Providers Care Dye Tub Operator Name Role Phone Roxanna Acosta MD Primary Care Provider Encounter Details Date Type Department Care Team (Late st Contact Info) Description 05/20/2007 Outpatient Historical [facility] HEALTH SAFETY MANAGER - [address] [place] [address] Enrique Mckinney MD [address] [place] [address] [place] [address] Social History Tobacco Use Types Packs/Day Years Used Date Smoking Tobacco: Never Assessed Comments Unknown Sex and Gender Information Value Date Recorded Sex Assigned at Not on file Legal Sex Female 4: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
--- OUTSIDE RECORDS SUMMARY | 2025-07-07 07:04 | XMS_ITS | Clinical Summary ---
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 1 Active ferrous sulfate ER [...] 3 (three) times a day 4 Active dextroamphetami ne-amphetamine XR (ADDERALL XR) 20 mg 24 hr capsule TAKE 2 CAPSULES BY MOUTH EVERY MORNING AND TAKE 1 CAPSULE BY MOUTH EVERY EVENING 5 Active meloxicam (MOBIC) 7.5 mg tabletIndicatio ns:Arthralgia of both knees,Arthralgi a of both hands,Arthralgi a of both ankles Take 1 tablet (7.5 mg total) by mouth daily 30 tablet 5 07/27/20 25 Active Active Problems No known active problems Encounters Date Type Department Care Team Description 06/28/2025 Results Follow-Up [facility] at [address] [phone] Cori Dow NP XR Clavicle Left 06/28/2025 Telephone [facility] at [address] [address] Cori Dow NP 06/27/2025 6:25 PM COOPERATIVE EDUCATION DIRECTOR - 06/27/2025 11:59 PM COOPERATIVE EDUCATION DIRECTOR Hospital Encounter [address] [address] Mass of left chest wall Discharge Disposition: Discharge to home or self care 06/27/2025 6:00 PM COOPERATIVE EDUCATION DIRECTOR Office Visit [facility] at [address] [address] Cori Dow, SHILPI Mass of left chest wall (Primary Dx); Arthralgia of both knees; Arthralgia of both hands; Arthralgia of both ankles; Pruritic skin without lesion; Burning sensation from Last 3 Months Social History Tobacco Use Types Packs/Day Years Used Date Smoking Tobacco: Never Assessed Comments Unknown Sex and Gender Information Value Date Recorded Sex Assigned at Not on file Legal Sex Female 7:01 PM COOPERATIVE EDUCATION DIRECTOR Gender Identity Not on file Sexual Orientation Not on file Last Filed Vital Signs Vital Sign Reading Time Taken Comments Blood Pressure 112/81 06/27/2025 5:53 PM COOPERATIVE EDUCATION DIRECTOR Pulse 100 06/27/2025 5:53 PM COOPERATIVE EDUCATION DIRECTOR Temperature 36.8 C (98.2 F) 06/27/2025 5:53 PM COOPERATIVE EDUCATION DIRECTOR Respiratory Rate 20 06/27/2025 5:53 PM COOPERATIVE EDUCATION DIRECTOR Oxygen Saturation 100% 06/27/2025 5:53 PM COOPERATIVE EDUCATION DIRECTOR Inhaled Oxygen Concentration - - Weight 66.5 kg (146 lb 9.6 oz) 06/27/2025 5:53 P M COOPERATIVE EDUCATION DIRECTOR Height 157.5 cm (5' 2) 02/28/2024 10:14 AM CDT Body Mass Index 26.81 02/28/2024 10:14 AM CDT Plan of Treatment Health Maintenance Due Date Last Done Comments Breast Cancer Screening-Mammogram 1980 Cervical Cancer Screening 1980 Colon Cancer Screening-Colonoscopy 1980 Depression Screening 1980 Hepatitis C Screening 1980 Varicella Vaccines (1 of 2 - 13+ 2-dose series) 1993 Hepatitis B Screening 1998 Regular Well Visit/Exam 18-64 1998 HPV Vaccines (1 - 3-dose SCD M series) 2007 Covid-19 Vaccine (4 - 2024-2 6 season) 2025 06/10/2021, 11/26/2020, 10/28/2020 Influenza Vaccine (#1) 2025 3, 05/19/2020 DTaP/Tdap/Td Vaccine (2 - Td or Tdap) 03/01/2031 03/01/2021 Pneumococcal vaccine <65 Aged Out No longer eligible based on patient's age to complete this topic Procedures Procedure Name Priority Date/Time Associated Diagnosis Comments XR CLAVICLE LEFT COMPLETE Schedule TORRIE, Read TORRIE (Appt Today, Awaiting Results) 06/27/2025 6:41 PM COOPERATIVE EDUCATION DIRECTOR Mass of left chest wall from Last 3 Months Results * XR Clavicle Left (06/27/2025 6:41 PM COOPERATIVE EDUCATION DIRECTOR) Anatomical Region Laterality Modality Clavicle, Chest Left Computed Radiogr aphy 06/28/2025 7:16 AM COOPERATIVE EDUCATION DIRECTOR Impressions 06/28/2025 7:16 AM COOPERATIVE EDUCATION DIRECTOR 1. No acute radiographic abnormality. Consider follow-up CT or MRI as clinically warranted. Electronically signed by: Joel Collier M.D. Narrative 06/28/2025 7:16 AM COOPERATIVE EDUCATION DIRECTOR EXAM DESCRIPTION: XR CLAVICLE LEFT COMPLETE REASON FOR STUDY: Mass or lump in the left chest wall at the sternoclavicular joint. TECHNIQUE: AP and axial views of the left clavicle COMPARISON: None FINDINGS: BONES/JOINTS: No acute fracture or dislocation. The joint spaces are normal. SOFT TISSUES: Within normal limits. Procedure Note Joel Collier MD - 06/28/2025 EXAM DESCRIPTION: XR CLAVICLE LEFT COMPLETE REASON FOR STUDY: Mass or lump in the left chest wall at the sternoclavicular joint. TECHNIQUE: AP and axial views of the left clavicle COMPARISON: None FINDINGS: BONES/JOINTS: No acute fracture or dislocation. The joint spaces are normal. SOFT TISSUES: Within normal limits. IMPRESSION: 1. No acute radiographic abnormality. Consider follow-up CT or MRI as clinically warranted. Electronically signed by: Joel Collier M.D. Cori Dow RETAIL ADMINISTRATIVE ASSISTANT IMG XR PROCEDURES Final Re sult from Last 3 Months Insurance [facility] CHOICE [employer] H[facility]/PPO Address: [address] [address] [place] [address] [facility] Care Teams Ostrich Farmer Relationship Specialty Start Date End Date Citlali Gómez DO [facility] [facility] [address] [place] [address] PCP - General Family Medicine 06/28/25
--- OUTSIDE RECORDS SUMMARY | 2025-07-07 07:04 | XMS_ITS | Encounter Summary ---
Author Organization [facility] Address [address] [place] [address] Care Team Providers Care Home Health Nurse Licensed Practical Name Role Phone Roxanna Acosta MD Primary Care Provider Encounter Details Date Type Department Care Team (Latest Contact Info) Description 08/17/2007 Outpatient Historical [facility] Naveed Means MD [address] [facility] [address] [place] [address] Other Specified Complication, Antepartum Social History Tobacco Use Types Packs/Day Years Used Date Smoking Tobacco: Never Assessed Comments Unknown Sex and Gender Information Value Date Recorded Sex Assigned at Not on file Legal Sex Female 4:02 AM COSMETIC SALES ADVISOR Gender Identity Not on file Sexual Orientation Not on file documented as of this encounter Plan of Treatment Not on file documented as of this encounter Visit Diagnoses Diagnosis Other specified complication, antepartum(646.83) Other specified complication, antepartum documented in this encounter Care Teams Home Health Nurse Licensed Practical Relationship Specialty Start Date End Date Roxanna Acosta MD PCP - General Family Practice 02/19/12 documented as of this encounter
--- OUTSIDE RECORDS SUMMARY | 2025-07-07 07:04 | XMS_ITS | Encounter Summary ---
Author Organization [facility] Address [address] [place] [address] Care Team Providers Care Inspection Machine Tender Name Role Phone Roxanna Acosta MD Primary Care Provider Encounter Details Date Type Department Care Team (Late st Contact Info) Description 03/27/2007 Outpatient Historical [facility] MANAGER BUSINESS OPERATIONS - [address] [place] [address] Enrique Mckinney MD [address] [place] [address] [place] [phone] Social History Tobacco Use Types Packs/Day Years Used Date Smoking Tobacco: Never Assessed Comments Unknown Sex and Gender Information Value Date Recorded Sex Assigned at Not on file Legal Sex Female 4:02 AM RETAIL SALES REPRESENTATIVE Gender Identity Not on file Sexual Orientation Not on file documented as of this encounter Plan of Treatment Not on file documented as of this encounter Visit Diagnoses Not on filedocumented in this encounter Care Teams Inspection Machine Tender Relationship Specialty Start Date End Date Roxanna Acosta MD PCP - General Family Practice 02/19/12 documented as of this encounter
--- OUTSIDE RECORDS SUMMARY | 2025-07-07 07:04 | XMS_ITS | Encounter Summary ---
Author Organization [facility] Address [address] [place] [address] Care Team Providers Care Emergency Management Coordinator Name Role Phone Roxanna Acosta MD Primary Care Provider Encounter Details Date Type Department Care Team (Late st Contact Info) Description 07/15/2007 Outpatient Historical [facility] AUDIOLOGY DOCTOR - [address] [place] [address] Enrique Mckinney MD [address] [place] [address] [place] [phone] Social History Tobacco Use Types Packs/Day Years Used Date Smoking Tobacco: Never Assessed Comments Unknown Sex and Gender Information Value Date Recorded Sex Assigned at Not on file Legal Sex Female 4:02 AM ONCOLOGY COORDINATOR Gender Identity Not on file Sexual Orientation Not on file documented as of this encounter Plan of Treatment Not on file documented as of this encounter Visit Diagnoses Not on filedocumented in this encounter Care Teams Emergency Management Coordinator Relationship Specialty Start Date End Date Roxanna Acosta MD PCP - General Family Practice 02/19/12 documented as of this encounter
--- OUTSIDE RECORDS SUMMARY | 2025-07-07 07:04 | XMS_ITS | Encounter Summary ---
Author Organization [facility] Address [address] [place] [address] Care Team Providers Care Staking Technician Name Role Phone Roxanna Acosta MD Primary Care Provider Encounter Details Date Type Department Care Team (Late st Contact Info) Description 05/19/2012 Chart Note [facility] Services [address] [place] [phone] Kyleigh Davis, Physical Therapist Social History Tobacco Use Types Packs/Day Years Used Date Smoking Tobacco: Never Smokeless Tobacco: Never Alcohol Use Standard Drinks/Week Comments No 0 (1 standard drink = 0.6 oz pur e alcohol) Comments Unknown Sex and Gender Information Value Date Recorded Sex Assigned at Not on file Legal Sex Female 4:02 AM GAMING DEPARTMENT HEAD Gender Identity Not on file Sexual Orientation [...] you for this referral. Kyleigh Davis [facility] Services [address] [place] [address]. [address] [place] [address] documented in this encounter Plan of Treatment Not on file documented as of this encounter Visit Diagnoses Not on filedocumented in this encounter Care Teams Staking Technician Relationship Specialty Start Date End Date Roxanna Acosta MD PCP - General Family Practice 02/19/12 documented as of this encounter
--- OUTSIDE RECORDS SUMMARY | 2025-07-07 07:04 | XMS_ITS | Encounter Summary ---
Author Organization [facility] Address [address] [place] [address] Care Team Providers Care Control System Manager Name Role Phone Roxanna Acosta MD Primary Care Provider [phone] Encounter Details Date Type Department Care Team (Latest Contact Info) Description 10/05/2007 Outpatient Historical [facility], [address] Epifanio Jones MD NO ADDRESS ON FILE Supervision of Other Normal Social History Tobacco Use Types Packs/Day Years Used Date Smoking Tobacco: Never Assessed Comments Unknown Sex and Gender Information Value Date Recorded Sex Assigned at Not on file Legal Sex Female 4:02 AM SNELLER HAND Gender Identity Not on file Sexual Orientation Not on file documented as of this encounter Plan of Treatment Not on file documented as of this encounter Procedures Procedure Name Priority Date/Time Associated Diagnosis Comments (BROTH-ENRICHED) GROUP B STREP DETECTION Routine 10/05/2007 5:22 PM SNELLER HAND documented in this encounter Results * STREPTOCOCCUS GROUP B CULTURE (10/05/2007 5:22 PM SNELLER HAND) PRELIMINARY REPORT Pending INTERFACE SYSTEM FINAL REPORT No Streptococcus Group B isolated. INTERFACE SYSTEM Vaginal 10/05/2007 5:22 PM SNELLER HAND 10/05/2007 5:26 PM SNELLER HAND Epifanio Jones MD MICROBIOLOGY - GENERAL ORDERABL ES Final Result INTERFACE SYSTEM Refer to clinic/hospital department documented in this encounter Visit Diagnoses Diagnosis Supervision of other normal documented in this encounter Care Teams Control System Manager Relationship Specialty Start Date End Date Roxanna Acosta MD PCP - General Family Practice 02/19/12 documented as of this encounter
--- OUTSIDE RECORDS SUMMARY | 2025-07-07 07:04 | XMS_ITS | Encounter Summary ---
Author Organization [facility] Address [address] [place] [address] Care Team Providers Care Air Brake Worker Name Role Phone Roxanna Acosta MD Primary Care Provider [phone] Encounter Details Date Type Department Care Team (Late st Contact Info) Description 07/29/2007 Outpatient Historical [facility] Enrique Mckinney MD [address] [address] Social History Tobacco Use Types Packs/Day Years Used Date Smoking Tobacco: Never Assessed Comments Unknown Sex and Gender Information Value Date Recorded Sex Assigned at Not on file Legal Sex Female 4:02 AM SOFT SUGAR OPERATOR HEAD Gender Identity Not on file Sexual Orientation Not on file documented as of this encounter Plan of Treatment Not on file documented as of this encounter Procedures Procedure Name Priority Date/Time Associated Diagnosis Comments URINALYSIS WITH REFLEX CULTURE Routine 07/29/2007 12:18 PM SOFT SUGAR OPERATOR HEAD URINALYSIS W/REFLEX MICROSCOPIC Routine 07/29/2007 12:18 PM SOFT SUGAR OPERATOR HEAD documented in this encounter Results * URINALYSIS (07/29/2007 12:18 PM SOFT SUGAR OPERATOR HEAD) COLOR UA Pale Yellow INTERFAC E SYSTEM [...] Negative INTERFACE SYSTEM 07/29/2007 12:1 8 PM SOFT SUGAR OPERATOR HEAD Enrique Mckinney MD URINE ORDERABLES Edited Performing Organization Address [facility] Phone Number INTERFACE SYSTEM Refer to clinic/hospital department * URINALYSIS WITH REFLEX CULTURE (07/29/2007 12:18 PM SOFT SUGAR OPERATOR HEAD) URINE CULTURE ORDER Not indicated INTERFACE SYSTEM Comment: Criteria for a reflex culture include one or more of the following: Abn ormal nitrite, leukocyte esterase, WBCs or RBCs. Lack of qualifying criteria does not exclude the possiblity of a urinary tract infection. Dilute urine, drug interference, etc. may decrease the sensitivity of the criteria analytes. 07/29/2007 12:1 8 PM SOFT SUGAR OPERATOR HEAD Enrique Mckinney MD URINE ORDERABLES Edited Performing Organization Address [facility] Phone Number INTERFACE SYSTEM Refer to clinic/hospital department documented in this encounter Visit Diagnoses Not on filedocumented in this encounter Care Teams Air Brake Worker Relationship Specialty Start Date End Date Roxanna Acosta MD PCP - General Family Practice 02/19/12 documented as of this encounter
--- OUTSIDE RECORDS SUMMARY | 2025-07-07 07:04 | XMS_ITS | Encounter Summary ---
Author Organization [facility] Address [address] [place] [address] Care Team Providers Care Rubber Extrusion Machine Operator Name Role Phone Roxanna Acosta MD Primary Care Provider Encounter Details Date Type Department Care Team (Late st Contact Info) Description 09/02/2003 Outpatient [facility] Primary Care - [address] [place] [phone] Otf Talavera Social History Tobacco Use Types Packs/Day Years Used Date Smoking Tobacco: Never Assessed Comments Unknown Sex and Gender Information Value Date Recorded Sex Assigned at Not on file Legal Sex Female 4:02 AM BRAZING MACHINE FEEDER Gender Identity Not on file Sexual Orientation Not on file documented as of this encounter Plan of Treatment Not on file documented as of this encounter Visit Diagnoses Not on filedocumented in this encounter Care Teams Rubber Extrusion Machine Operator Relationship Specialty Start Date End Date Roxanna Acosta MD PCP - General Family Practice 02/19/12 documented as of this encounter
--- OUTSIDE RECORDS SUMMARY | 2025-07-07 07:04 | XMS_ITS | Encounter Summary ---
Author Organization [facility] Address [address] [place] [address] Care Team Providers Care Lace Roller Operator Name Role Phone Roxanna Acosta MD Primary Care Provider [phone] Encounter Details Date Type Department Care Team (Late st Contact Info) Description 02/15/2004 Outpatient Historical [facility] Primary Care - [address] [place] [phone] Barak Greenberg MD [address] [facility] [address] [place], [place] [id number] Social History Tobacco Use Types Packs/Day Years Used Date Smoking Tobacco: Never Assessed Comments Unknown Sex and Gender Information Value Date Recorded Sex Assigned at Not on file Legal Sex Female 4:02 AM ROUTE SALESPERSON Gender Identity Not on file Sexual Orientation Not on file documented as of this encounter Plan of Treatment Not on file documented as of this encounter Visit Diagnoses Not on filedocumented in this encounter Care Teams Lace Roller Operator Relationship Specialty Start Date End Date Roxanna Acosta MD PCP - General Family Practice 02/19/12 documented as of this encounter
--- OUTSIDE RECORDS SUMMARY | 2025-07-07 07:04 | XMS_ITS | Encounter Summary ---
Author Organization [facility] Address [address] [place] [address] Care Team Providers Care Maple Products Supervisor Name Role Phone Roxanna Acosta MD Primary Care Provider Encounter Details Date Type Department Care Team (Late st Contact Info) Description 09/08/2007 Outpatient Historical [facility] MANAGEMENT INTERNSHIP - [address] [place] [address] Enrique Mckinney MD [address] [place] [address] [place] [phone] Social History Tobacco Use Types Packs/Day Years Used Date Smoking Tobacco: Never Assessed Comments Unknown Sex and Gender Information Value Date Recorded Sex Assigned at Not on file Legal Sex Female 4:02 AM HUMAN RESOURCE PROFESSIONAL Gender Identity Not on file Sexual Orientation Not on file documented as of this encounter Plan of Treatment Not on file documented as of this encounter Visit Diagnoses Not on filedocumented in this encounter Care Teams Maple Products Supervisor Relationship Specialty Start Date End Date Roxanna Acosta MD PCP - General Family Practice 02/19/12 documented as of this encounter
--- OUTSIDE RECORDS SUMMARY | 2025-07-07 07:04 | XMS_ITS | Encounter Summary ---
Author Organization [facility] Address [address] [place] [address] Care Team Providers Care Irrigator Valve Pipe Name Role Phone Roxanna Acosta MD Primary [...] on file Legal Sex Female 4:02 AM TAKE AWAY MAN Gender Identity Not on file Sexual Orientation Not on file documented as of this encounter Plan of Treatment Not on file documented as of this encounter Visit Diagnoses Diagnosis Other current maternal conditions classifiable elsewhere, antepartum- Primary documented in this encounter Care Teams Irrigator Valve Pipe Relationship Specialty Start Date End Date Roxanna Acosta MD PCP - General Family Practice 02/19/12 documented as of this encounter
--- OUTSIDE RECORDS SUMMARY | 2025-07-07 07:04 | XMS_ITS | Encounter Summary ---
Author Organization [facility] Address [address] [place] [address] Care Team Providers Care Cafe Site Attendant Name Role Phone Roxanna Acosta MD Primary Care Provider [phone] Encounter Details Date Type Department Care Team (Late st Contact Info) Description 07/06/[address] [facility] Primary Care - [address] [place] [phone] Otf Talavera Social History Tobacco Use Types Packs/Day Years Used Date Smoking Tobacco: Never Assessed Comments Unknown Sex and Gender Information Value Date Recorded Sex Assigned at Not on file Legal Sex Female 4:02 AM BIOMEDICAL ELECTRONICS TECHNICIAN Gender Identity Not on file Sexual Orientation Not on file documented as of this encounter Plan of Treatment Not on file documented as of this encounter Visit Diagnoses Not on filedocumented in this encounter Care Teams Cafe Site Attendant Relationship Specialty Start Date End Date Roxanna Acosta MD PCP - General Family Practice 02/19/12 documented as of this encounter
--- OUTSIDE RECORDS SUMMARY | 2025-07-07 07:04 | XMS_ITS | Encounter Summary ---
Author Organization [facility] Address [address] [place] [address] Care Team Providers Care Gas Mask Inspector Name Role Phone Roxanna Acosta MD Primary Care Provider Encounter Details Date Type Department Care Team (Late st Contact Info) Description 09/30/2003 Outpatient [facility] Primary Care - [address] [place] [phone] Otf Talavera Social History Tobacco Use Types Packs/Day Years Used Date Smoking Tobacco: Never Assessed Comments Unknown Sex and Gender Information Value Date Recorded Sex Assigned at Not on file Legal Sex Female 4:02 AM HARDSCAPE FOREMAN Gender Identity Not on file Sexual Orientation Not on file documented as of this encounter Plan of Treatment Not on file documented as of this encounter Visit Diagnoses Not on filedocumented in this encounter Care Teams Gas Mask Inspector Relationship Specialty Start Date End Date Roxanna Acosta MD PCP - General Family Practice 02/19/12 documented as of this encounter
--- OUTSIDE RECORDS SUMMARY | 2025-07-07 07:04 | XMS_ITS | Encounter Summary ---
Author Organization [facility] Address [address] [place] [address] Care Team Providers Care Planner Intern Name Role Phone Roxanna Acosta MD Primary Care Provider Encounter Details Date Type Department Care Team (Late st Contact Info) Description 11/23/2003 Outpatient [facility] Primary Care - [address] [place] [phone] Otf Talavera Social History Tobacco Use Types Packs/Day Years Used Date Smoking Tobacco: Never Assessed Comments Unknown Sex and Gender Information Value Date Recorded Sex Assigned at Not on file Legal Sex Female 4:02 AM ROLL EXAMINER Gender Identity Not on file Sexual Orientation Not on file documented as of this encounter Plan of Treatment Not on file documented as of this encounter Visit Diagnoses Not on filedocumented in this encounter Care Teams Planner Intern Relationship Specialty Start Date End Date Roxanna Acosta MD PCP - General Family Practice 02/19/12 documented as of this encounter
--- OUTSIDE RECORDS SUMMARY | 2025-07-07 07:04 | XMS_ITS | Encounter Summary ---
Author Organization [facility] Address [address] [place] [address] Care Team Providers Care Refinery Operator Vapor Recovery Unit Name Role Phone Roxanna Acosta MD Primary Care Provider Encounter Details Date Type Department Care Team (Late st Contact Info) Description 02/17/2004 Outpatient Historical [facility] Barak Greenbreg MD [address] [facility] [address] [place] [address] ABDOMINAL PAIN LUQ (Primary Dx) Social History Tobacco Use Types Packs/Day Years Used Date Smoking Tobacco: Never Assessed Comments Unknown Sex and Gender Information Value Date Recorded Sex Assigned at Not on file Legal Sex Female 4:02 AM HISTOTECHNOLOGIST Gender Identity Not on file Sexual Orientation Not on file documented as of this encounter Plan of Treatment Not on file documented as of this encounter Visit Diagnoses Diagnosis Abdominal pain, left upper quadrant- Primary documented in this encounter Care Teams Refinery Operator Vapor Recovery Unit Relationship Specialty Start Date End Date Roxanna Acosta MD PCP - General Family Practice 02/19/12 documented as of this encounter
--- OUTSIDE RECORDS SUMMARY | 2025-07-07 07:04 | XMS_ITS | Encounter Summary ---
Author Organization [facility] Address [address] [place] [address] Care Team Providers Care Press Clipper Name Role Phone Roxanna Acosta MD Primary Care Provider [phone] Encounter Details Date Type Department Care Team (Latest Contact Info) Description 10/07/2005 Outpatient Historical [facility] Cecil Schofield MD [address] [place] [phone] Kelechi Dixon MD NO ADDRESS ON FILE Other Specified Complication, Antepartum (Primary Dx) Social History Tobacco Use Types Packs/Day Years Used Date Smoking Tobacco: Never Assessed Comments Unknown Sex and Gender Information Value Date Recorded Sex Assigned at Not on file Legal Sex Female 4:02 AM CRANKSHAFT BALANCER Gender Identity Not on file Sexual Orientation Not on file documented as of this encounter Plan of Treatment Not on file documented as of this encounter Procedures Procedure Name Priority Date/Time Associated Diagnosis Comments CBC WITH DIFFERENTIAL Routine 10/07/2005 2:54 PM CRANKSHAFT BALANCER CBC WITH DIFFERENTIAL Routine 10/07/2005 2:54 PM CRANKSHAFT BALANCER documented in this encounter Results * (ABNORMAL) CBC WITH DIFFERENTIAL (10/07/2005 2:54 PM CRANKSHAFT BALANCER) NEUTROPHILS 72(H) 45 - 70 % INTERFAC [...] 0.20 K/uL INTERFACE SYSTEM 10/07/2005 2:54 PM CRANKSHAFT BALANCER us Kelechi Dixon MD HEMATOLOGY ORDERABLES Final Result Performing Organization Address [facility] Co de Phone Number INTERFACE SYSTEM Refer to clinic/hospital department * (ABNORMAL) CBC WITH DIFFERENTIAL (10/07/2005 2:54 PM CRANKSHAFT BALANCER) WBC 8.9 4.0 - 9.8 K/uL INTERFACE [...] 12.4 fL INTERFACE SYSTEM 10/07/2005 2:54 PM CRANKSHAFT BALANCER Kelechi Dixon MD HEMATOLOGY ORDERABLES Final Result Performing Organization Address [facility] Co de Phone Number INTERFACE SYSTEM Refer to clinic/hospital department documented in this encounter Visit Diagnoses Diagnosis Other specified complication, antepartum(406.83)- Primary Other specified complication, antepartum documented in this encounter Care Teams Press Clipper Relationship Specialty Start Date End Date Roxanna Acosta MD PCP - General Family Practice 02/19/12 documented as of this encounter
--- OUTSIDE RECORDS SUMMARY | 2025-07-07 07:04 | XMS_ITS | Encounter Summary ---
Author Organization [facility] Address [address] [place] [address] Care Team Providers Care Restaurant Host/Hostess Name Role Phone Roxanna Acosta MD Primary Care Provider Encounter Details Date Type Department Care Team (Late st Contact Info) Description 09/11/2007 Outpatient Historical [facility] WORKERS' COMPENSATION MEDIATOR - [address] [place] [address] Enrique Mckinney MD [address] [place] [address] [place] [phone] Social History Tobacco Use Types Packs/Day Years Used Date Smoking Tobacco: Never Assessed Comments Unknown Sex and Gender Information Value Date Recorded Sex Assigned at Not on file Legal Sex Female 4:02 AM TRENCH PIPE LAYER HELPER Gender Identity Not on file Sexual Orientation Not on file documented as of this encounter Plan of Treatment Not on file documented as of this encounter Visit Diagnoses Not on filedocumented in this encounter Care Teams Restaurant Host/Hostess Relationship Specialty Start Date End Date Roxanna Acosta MD PCP - General Family Practice 02/19/12 documented as of this encounter
--- OUTSIDE RECORDS SUMMARY | 2025-07-07 07:04 | XMS_ITS | Encounter Summary ---
Author Organization [facility] Address [address] [place] [address] Care Team Providers Care Horticultural Therapist Name Role Phone Roxanna Acosta MD Primary Care Provider Encounter Details Date Type Department Care Team (Late st Contact Info) Description 12/09/2005 Outpatient Historical [facility] Primary Care - [address] [place] [address] Barak Greenberg MD [address] [facility] [address] [place] [address] Social History Tobacco Use Types Packs/Day Years Used Date Smoking Tobacco: Never Assessed Comments Unknown Sex and Gender Information Value Date Recorded Sex Assigned at Not on file Legal Sex Female 4:02 AM CONCRETE FENCE BUILDER Gender Identity Not on file Sexual Orientation [...] on filedocumented in this encounter Care Teams Horticultural Therapist Relationship Specialty Start Date End Date Roxanna Acosta MD PCP - General Family Practice 02/19/12 documented as of this encounter
--- OUTSIDE RECORDS SUMMARY | 2025-07-07 07:04 | XMS_ITS | Encounter Summary ---
Author Organization [facility] Address [address] [place] [address] Care Team Providers Care Diesel Trailer Mechanic Name Role Phone Roxanna Acosta MD Primary Care Provider [phone] Encounter Details Date Type Department Care Team (Late st Contact Info) Description 04/02/2007 Outpatient Historical [facility] RETAIL CUSTODIAL ASSOCIATE - Medical [address] [address] Enrique Mckinney MD [address] [place] [phone] Social History Tobacco Use Types Packs/Day Years Used Date Smoking Tobacco: Never Assessed Comments Unknown Sex and Gender Information Value Date Recorded Sex Assigned at Not on file Legal Sex Female 4:02 AM PARTS FINISHER Gender Identity Not on file Sexual Orientation Not on file documented as of this encounter Plan of Treatment Not on file documented as of this encounter Visit Diagnoses Not on filedocumented in this encounter Care Teams Diesel Trailer Mechanic Relationship Specialty Start Date End Date Roxanna Acosta MD PCP - General Family Practice 02/19/12 documented as of this encounter
--- OUTSIDE RECORDS SUMMARY | 2025-07-07 07:04 | XMS_ITS | Encounter Summary ---
Author Organization [facility] Address [address] [place] [address] Care Team Providers Care Design Center Consultant Name Role Phone Roxanna Acosta MD Primary Care Provider Encounter Details Date Type Department Care Team (Late st Contact Info) Description 11/03/2006 Outpatient Historical [facility] Primary Care - [address] [place] [address] Barak Greenberg MD [address] [facility] [address] [place] [address] Social History Tobacco Use Types Packs/Day Years Used Date Smoking Tobacco: Never Assessed Comments Unknown Sex and Gender Information Value Date Recorded Sex Assigned at Not on file Legal Sex Female 4:02 AM STAPLE SIDE LASTER Gender Identity Not on file Sexual Orientation [...] on filedocumented in this encounter Care Teams Design Center Consultant Relationship Specialty Start Date End Date Roxanna Acosta MD PCP - General Family Practice 02/19/12 documented as of this encounter
--- OUTSIDE RECORDS SUMMARY | 2025-07-07 07:04 | XMS_ITS | Encounter Summary ---
Author Organization [facility] Address [address] [place] [address] Care Team Providers Care Nutrition Internship Name Role Phone Roxanna Acosta MD Primary Care Provider [phone] Encounter Details Date Type Department Care Team (Late st Contact Info) Description 06/18/2007 Outpatient Historical [facility] ELECTRONICS SCALE TESTER - Medical [address] [address] Enrique Mckinney MD [address] [place] [address] Social History Tobacco Use Types Packs/Day Years Used Date Smoking Tobacco: Never Assessed Comments Unknown Sex and Gender Information Value Date Recorded Sex Assigned at Not on file Legal Sex Female 4:02 AM SUPERVISOR DYER Gender Identity Not on file Sexual Orientation Not on file documented as of this encounter Plan of Treatment Not on file documented as of this encounter Visit Diagnoses Not on filedocumented in this encounter Care Teams Nutrition Internship Relationship Specialty Start Date End Date Roxanna Acosta MD PCP - General Family Practice 02/19/12 documented as of this encounter
--- OUTSIDE RECORDS SUMMARY | 2025-07-07 07:04 | XMS_ITS | Encounter Summary ---
Author Organization [facility] Address [address] [place] [address] Care Team Providers Care Hotel Guest Service Agent Name Role Phone Roxanna Acosta MD Primary Care Provider [phone] Encounter Details Date Type Department Care Team (Late st Contact Info) Description 01/13/2003 Outpatient [facility] Primary Care - [address] [place] [address] Otf Talavera Social History Tobacco Use Types Packs/Day Years Used Date Smoking Tobacco: Never Assessed Comments Unknown Sex and Gender Information Value Date Recorded Sex Assigned at Not on file Legal Sex Female 4:02 AM RAILROAD POLICE OFFICER Gender Identity Not on file Sexual Orientation Not on file documented as of this encounter Plan of Treatment Not on file documented as of this encounter Visit Diagnoses Not on filedocumented in this encounter Care Teams Hotel Guest Service Agent Relationship Specialty Start Date End Date Roxanna Acosta MD PCP - General Family Practice 02/19/12 documented as of this encounter
--- OUTSIDE RECORDS SUMMARY | 2025-07-07 07:04 | XMS_ITS | Encounter Summary ---
Author Organization [facility] Address [address] [place] [address] Care Team Providers Care Wholesale And Retail Merchant Name Role Phone Roxanna Acosta MD Primary Care Provider Encounter Details Date Type Department Care Team (Late st Contact Info) Description 06/18/2007 Outpatient Historical [facility] IT SECURITY CONSULTING DIRECTOR - Medical [address] [address] Enrique Mckinney MD [address] [place] [address] Social History Tobacco Use Types Packs/Day Years Used Date Smoking Tobacco: Never Assessed Comments Unknown Sex and Gender Information Value Date Recorded Sex Assigned at Not on file Legal Sex Female 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
--- OUTSIDE RECORDS SUMMARY | 2025-07-07 07:04 | XMS_ITS | Encounter Summary ---
Author Organization [facility] Address 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
--- OUTSIDE RECORDS SUMMARY | 2025-07-07 07:04 | XMS_ITS | Encounter Summary ---
Author Organization [facility] Address [address] [place] [address] Care Team Providers Care Gold Beater Name Role Phone Roxanna Acosta MD Primary Care Provider Encounter Details Date Type Department Care Team (Late st Contact Info) Description 05/01/2006 Outpatient Historical [facility] Primary Care - [address] [place] [address] Barak Greenberg MD [address] [facility] [address] [place] [address] Social History Tobacco Use Types Packs/Day Years Used Date Smoking Tobacco: Never Assessed Comments Unknown Sex and Gender Information Value Date Recorded Sex Assigned at Not on file 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
--- OUTSIDE RECORDS SUMMARY | 2025-07-07 07:04 | XMS_ITS | Encounter Summary ---
Author Organization [facility] Address [address] [place] [address] Care Team Providers Care Control Electrician Name Role Phone Roxanna Acosta MD Primary Care Provider [phone] Encounter Details Date Type Department Care Team (Late st Contact Info) Description 08/13/2007 Outpatient Historical [facility] SENIOR PRINCIPAL - Medical [address] [address] Enrique Mckinney MD [address] [place] [phone] Social History Tobacco Use Types Packs/Day Years Used Date Smoking Tobacco: Never Assessed Comments Unknown Sex and Gender Information Value Date Recorded Sex Assigned at Not on file 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
--- OUTSIDE RECORDS SUMMARY | 2025-07-07 07:04 | XMS_ITS | Encounter Summary ---
Author Organization [facility] Address 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
--- OUTSIDE RECORDS SUMMARY | 2025-07-07 07:04 | XMS_ITS | Encounter Summary ---
Author Organization [employer] Address 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
--- OUTSIDE RECORDS SUMMARY | 2025-07-07 07:04 | XMS_ITS | Encounter Summary ---
Author Organization [facility] Address [address] [place] [address] Care Team Providers Care Shopper Marketing Manager Name Role Phone Roxanna Acosta MD Primary Care Provider Encounter Details Date Type Department Care Team (Late st Contact Info) Description 12/09/[address] 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 LAST VISIT: 02-15-04 PCP: rian. ALTERNATIVE PHONE NUMBER: [phone] WHO CALLED: Patient called. CURRENT ALLERGY LIST: [facility] NUMBER: [phone] PROBLEMS: pt daughter had a staph infection [...] patient 12/09/05 at 10:26 am. Booked appointment: 8 3:30p...........Silva Electronically Signed by: Silva Calle on [...] SPECIALTY REFERRAL: PODIATRY Dr. Mendez Panda ph: [phone] fax: [phone]. Electronically Signed by: Barak Greenberg MD on Friday, December 09, 2005 documented in this encounter Plan of Treatment Not on file documented as of this encounter Visit Diagnoses Not on filedocumented in this encounter Care Teams Shopper Marketing Manager Relationship Specialty Start Date End Date Roxanna Acosta MD PCP - General Family Practice 02/19/12 documented as of this encounter
--- OUTSIDE RECORDS SUMMARY | 2025-07-07 07:04 | XMS_ITS | Encounter Summary ---
Author Organization [facility] Address 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
--- OUTSIDE RECORDS SUMMARY | 2025-07-07 07:04 | XMS_ITS | Encounter Summary ---
Author Organization [facility] Address [address] [place] [address] Care Team Providers Care Manager Building Name Role Phone Roxanna Acosta MD Primary Care Provider [phone] Encounter Details Date Type Department Care Team (Late st Contact Info) Description 08/13/2007 Outpatient Historical [facility] BRICK AND BLOCKER AID LABOR - Medical [address] [address] Enrique Mckinney MD [address] [place] [address] Social History Tobacco Use Types Packs/Day Years Used Date Smoking Tobacco: Never Assessed Comments Unknown Sex and Gender Information Value Date Recorded Sex Assigned at Not on file 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
--- OUTSIDE RECORDS SUMMARY | 2025-07-07 07:04 | XMS_ITS | Encounter Summary ---
Author Organization [facility] Address [address] [place] [address] Care Team Providers Care Clay Dry Press Operator Name Role Phone Roxanna Acosta MD Primary Care Provider Encounter Details Date Type Department Care Team (Late st Contact Info) Description 05/01/2006 Orders Only [facility] Primary Care - [facility] [address] [place] [address] Barak Greenberg MD [address] [facility] [address] [place] [address] Social History Tobacco Use Types Packs/Day Years Used Date Smoking Tobacco: Never Assessed Comments Unknown Sex and Gender Information Value Date Recorded Sex Assigned at Not on file Legal Sex Female 4:02 AM VOIP TECHNICIAN Gender Identity Not on file Sexual Orientation Not on file documented as of this encounter Progress Notes * Barak Greenberg MD - 05/17/2008 6:57 PM CDT [facility] BARAK GREENBERG MD [address] [place] [address] May 01, 2006 ASHOK JIMENEZ [address] [place] [address] ASHOK JAQUI has been under our care [...] filedocumented in this encounter Care Teams Clay Dry Press Operator Relationship Specialty Start Date End Date Roxanna Acosta MD PCP - General Family Practice 02/19/12 documented as of this encounter
--- OUTSIDE RECORDS SUMMARY | 2025-07-07 07:04 | XMS_ITS | Encounter Summary ---
Author Organization [facility] Address [address] [place] [address] Care Team Providers Care Recreation Program Specialist Name Role Phone Roxanna Acosta MD Primary Care Provider Encounter Details Date Type Department Care Team (Latest Contact Info) Description 05/20/2007 Outpatient Historical [facility] CAPSULE FILLER - [address] [place] [address] Enrique Mckinney MD [address] [facility] [address] [facility] [place] [address] State, Incidental (Primary Dx) Social History Tobacco Use Types Packs/Day Years Used Date Smoking Tobacco: Never Assessed Comments Unknown Sex and Gender Information Value Date Recorded Sex Assigned at Not on file Legal Sex Female 4:02 AM GLASS BULB SILVERER Gender Identity Not on file Sexual Orientation [...] MD CHEMISTRY ORDERABLES Edited Performing Organization Address [facility] de Phone Number INTERFACE SYSTEM [...] MD HEMATOLOGY ORDERABLES Edited Performing Organization Address [facility] de Phone Number INTERFACE SYSTEM [...] MD HEMATOLOGY ORDERABLES Edited Performing Organization Address [facility] Phone Number INTERFACE SYSTEM Refer to clinic/hospital department * HIV ANTIBODY W/REFLX CONFIRMATION (05/20/2007 4:45 PM CDT) HIV-1 AND 2 ABS NON-REACTI VE NON-REACT BREEZY INTERFACE SYSTEM Comment: Effective January 05, 2007, HIV 1/2 Antibody Screen with Reflexed Confirmati on has replaced HIV-1 Antibody Screen. HIV-1 Antibody Screen is no longer offered due to lack of available kits from the [employer]phalt [employer]. A NON-REACTIVE HIV 1/2 ANTIBODY RESULT DOES NOT EXCLUDE HIV INFECTION SINCE THE TIME FRAME FOR SEROCONVERSION IS VARIABLE. IF ACUTE HIV INFECTION IS SUSPECTED, ANTIBODY RETESTING AND NUCLEIC ACID AMPLIFICATION (HIV DNA/RNA) TESTING IS RECOMMENDED. Lab test performed by: [facility] [address] [place] [address] ALLIE CARDENAS MD 05/20/2007 4:45 PM CDT us Enrique Mckinney MD CHEMISTRY ORDERABLES Edited Performing Organization Address [facility] Phone Number INTERFACE SYSTEM Refer to clinic/hospital department * HEPATITIS B SURFACE ANTIGEN (05/20/2007 4:45 PM CDT) HEPATITIS B SURFACE AG NON-REACTI VE NON-REACT BREEZY INTERFACE SYSTEM Comment: Lab test performed by: [facility] [id number] [address] [facility] [id number] ALLIE CARDENAS MD 05/20/2007 4:45 PM CDT Enrique Mckinney MD CHEMISTRY ORDERABLES Edited Performing Organization Address [facility] Phone Number INTERFACE SYSTEM Refer to [...] WITH RUBELLA VIRUS. Lab test performed by: [facility] [id number] ALLIE CARDENAS MD 05/20/2007 4:45 PM CDT Enrique Mckinney MD CHEMISTRY ORDERABLES Edited Performing Organization Address [facility] Phone Number INTERFACE SYSTEM Refer to clinic/hospital department * RPR (05/20/2007 4:45 PM CDT) RPR NON-REACTI VE NON-REACT BREEZY INTERFACE SYSTEM Comment: Lab test performed by: [facility] [id number] [place] [id number] ALLIE CARDENAS MD 05/20/2007 4:45 PM CDT Enrique Mckinney MD CHEMISTRY ORDERABLES Edited Performing Organization Address [facility] Phone Number INTERFACE SYSTEM Refer to clinic/hospital department documented in this encounter Visit Diagnoses Diagnosis state, incidental- Primary documented in this encounter Care Teams Recreation Program Specialist Relationship Specialty Start Date End Date Roxanna Acosta MD PCP - General Family Practice 02/19/12 documented as of this encounter
--- OUTSIDE RECORDS SUMMARY | 2025-07-07 07:04 | XMS_ITS | Encounter Summary ---
Author Organization [employer] Address [address] [place] [address] Care Team Providers Care Shoe Planner Name Role Phone Roxanna Acosta MD [...] on file Legal Sex Female 4:02 AM RESIDENTIAL CONCIERGE Gender Identity Not on file Sexual Orientation Not on file documented as of this encounter Plan of Treatment Not on file documented as of this encounter Procedures Procedure Name Priority Date/Time Associated Diagnosis Comments CBC WITH DIFFERENTIAL Routine 10/26/2004 11:50 AM RESIDENTIAL CONCIERGE CBC WITH DIFFERENTIAL Routine 10/26/2004 11:50 AM RESIDENTIAL CONCIERGE URINALYSIS W/REFLEX MICROSCOPIC Routine 10/26/2004 11:50 AM RESIDENTIAL CONCIERGE URINALYSIS W/REFLEX MICROSCOPIC Routine 10/26/2004 11:15 AM RESIDENTIAL CONCIERGE documented in this encounter Results * URINALYSIS (10/26/2004 11:50 AM RESIDENTIAL CONCIERGE) COLOR UA Yellow INTERFACE SYSTEM CLARITY UA [...] /HPF INTERFACE SYSTEM 10/26/2004 11:5 0 AM RESIDENTIAL CONCIERGE Freddie Márquez URINE ORDERABLES Final Result Performing Organization Address [facility] Phone Number INTERFACE SYSTEM Refer to clinic/hospital department * (ABNORMAL) CBC WITH DIFFERENTIAL (10/26/2004 11:50 AM RESIDENTIAL CONCIERGE) NEUTROPHILS 74(H) 45 - 70 % INTERFAC [...] K/uL INTERFACE SYSTEM 10/26/2004 11:5 0 AM RESIDENTIAL CONCIERGE Freddie Márquez HEMATOLOGY ORDERABLES Final Resu lt Performing Organization Address [facility] Phone Number INTERFACE SYSTEM Refer to clinic/hospital department * (ABNORMAL) CBC WITH DIFFERENTIAL (10/26/2004 11:50 AM RESIDENTIAL CONCIERGE) WBC 7.6 4.0 - 9.8 K/uL INTERFACE [...] fL INTERFACE SYSTEM 10/26/2004 11:5 0 AM RESIDENTIAL CONCIERGE Freddie Márquez HEMATOLOGY ORDERABLES Final Resu lt INTERFACE SYSTEM Refer to clinic/hospital department * (ABNORMAL) URINALYSIS (10/26/2004 11:15 AM RESIDENTIAL CONCIERGE) COLOR UA Colorless INTERFACE SYSTEM CLARITY UA [...] /HPF INTERFACE SYSTEM 10/26/2004 11:1 5 AM RESIDENTIAL CONCIERGE Freddie Márquez URINE ORDERABLES Final Result INTERFACE SYSTEM Refer to clinic/hospital department documented in this encounter Visit Diagnoses Diagnosis Other current maternal conditions classifiable elsewhere, antepartum- Primary documented in this encounter Care Teams Shoe Planner Relationship Specialty Start Date End Date Roxanna Acosta MD PCP - General Family Practice 02/19/12 documented as of this encounter
--- OUTSIDE RECORDS SUMMARY | 2025-07-07 07:04 | XMS_ITS | Encounter Summary ---
Author Organization [employer] Address 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
--- OUTSIDE RECORDS SUMMARY | 2025-07-07 07:05 | XMS_ITS | Encounter Summary ---
Author Organization [facility] Address [address] [place] [address] Care Team Providers Care Produce Clerk Name Role Phone Tracey Patel MD Primary Care Provider [phone] Tracey Patel MD Unavailable [phone] Encounter Details Date Type Department Care Team (Late st Contact Info) Description 04/16/2018 [facility] Outpatient Visit EXTERNAL NON-[facility] DEPT Tracey Patel MD [address] [place] [address] Social History Tobacco Use Types Packs/Day Years Used Date Smoking Tobacco: Never Smokeless Tobacco: Never Alcohol Use Standard Drinks/Week Comments Yes 0 (1 standard drink = 0.6 oz pur e alcohol) socially Comments No Sex and Gender Information Value Date Recorded Sex Assigned at Not on file Legal Sex Female 6:01 AM PANEL BEATER Gender Identity Not on file Sexual Orientation Not on file documented as of this encounter Plan of Treatment Not on file documented as of this encounter Visit Diagnoses Not on filedocumented in this encounter Care Teams Produce Clerk Relationship Specialty Start Date End Date Tracey Patel MD PCP - General Family Medicine 06/13/17 Tracey Patel MD [address] [place] [id number] PCP - Attributed-C Commercial 12/19/18 12/19/18 documented as of this encounter
--- OUTSIDE RECORDS SUMMARY | 2025-07-07 07:05 | XMS_ITS | Encounter Summary ---
Author Organization [facility] Address [address] [place] [address] Care Team Providers Care Log Buncher Name Role Phone Roxanna Acosta MD Primary Care Provider Encounter Details Date Type Department Care Team (Late st Contact Info) Description 04/14/2002 Outpatient [facility] Primary Care - [address] [place] [phone] Otf Talavera Social History Tobacco Use Types Packs/Day Years Used Date Smoking Tobacco: Never Assessed Comments Unknown Sex and Gender Information Value Date Recorded Sex Assigned at Not on file Legal Sex Female 4:02 AM DIRECTOR BUILDING Gender Identity Not on file Sexual Orientation Not on file documented as of this encounter Plan of Treatment Not on file documented as of this encounter Visit Diagnoses Not on filedocumented in this encounter Care Teams Log Buncher Relationship Specialty Start Date End Date Roxanna Acosta MD PCP - General Family Practice 02/19/12 documented as of this encounter
--- OUTSIDE RECORDS SUMMARY | 2025-07-07 07:05 | XMS_ITS | Clinical Summary ---
Author Organization [facility] Address [address] [place] [address] Care Team Providers Care Director Of Advertising Sales Name Role Phone Tracey Patel MD Primary Care Provider [phone] Source Comments [facility],non-owned Affiliates and Associated Physician Practices is amultiple site organization consisting of ambulatory clinics and hospital sitesin [place], [place], [place] and [place]. This disclosure is being madepursuant to the Care Everywhere program and may not contain all information available regarding this patient. Last updated 18.[employer] Allergies No known active allergies Medications * [...] on file Legal Sex Female 6:01 AM DECAY CONTROL OPERATOR Gender Identity Not on file Sexual [...] Health Maintenance Due Date Last Done Comments COLOGUARD (AGES 45-75) - COLON CA SCREENING 1980 COLON MONITORING 1980 COLONOSCOPY - COLON CA SCREENING 1980 CT COLONOGRAPHY - COLON CA SCREENING 1980 Colorectal Cancer Screening 1980 FIT - COLON CA SCREENING 1980 FLEX SIG - COLON CA SCREENING 1980 HIV SCREENING 1995 HEPATITIS C SCREENING 03/25/1998 DTAP/TDAP/TD VACCINES (1 - Tdap) 1999 HEPATITIS B VACCINE (1 of 3 - 19+ 3-dose series) 1999 HPV VACCINE (1 - 3-dose SCDM series) 2007 MAMMOGRAM 07/17/2019 07/17/2017 SCREENING FOR DIABETES 06/17/2020 06/17/2017 PAP SMEAR 10/07/2021 10/07/2018, 01/28/2018, 07/09/2017 LIPID TESTING 06/17/2022 06/17/2017 Cervical Cancer Screening 10/08/2023 PAP with HPV 10/08/2023 10/07/2018 (Done Outside Per Report), 07/09/2017 DEPRESSION SCREENING 08/04/2024 COVID-19 VACCINE (2024-2 6 season) 2025 INFLUENZA VACCINE (#1) 2025 05/19/2020 ZOSTER VACCINE (1 of 2) [...] MAMMO BILAT DIAGNOSTIC Routine 07/17/2017 10:10 AM DECAY CONTROL OPERATOR Left breast lump PAP IG LB +HPV APTIMA REFLEX 16,18/45 Routine 07/09/2017 3:07 PM DECAY CONTROL OPERATOR Well woman exam with routine gynecological exam Screening for HPV (human papillomavirus) COMPREHENSIVE METABOLIC PANEL Routine 06/17/2017 10:22 AM DECAY CONTROL OPERATOR Annual physical exam LIPID PROFILE W TCHOL/HDL Routine 06/17/2017 10:22 AM DECAY CONTROL OPERATOR Annual physical exam from Last 3 Months or Most Recently Relevant to Health Maintenance Results * MAMMO DIAG DIRECT DIGITAL IMAGE BILA [id number] (07/17/2017 10:10 AM DECAY CONTROL OPERATOR) Anatomical Region Laterality Modality Bilateral Mammography 07/17/2017 11:1 7 AM DECAY CONTROL OPERATOR Narrative 07/17/2017 11:24 AM DECAY CONTROL OPERATOR DIGITAL BILATERAL DIAGNOSTIC MAMMOGRAMS WITH CAD [...] if suspicious findings are present clinically. An [employer] Certified Facility. [facility] Breast Centers utilize [employer] as a reminder system to notify patients of their next recommended mammogram. Edited by Jennifer Stockton on 07/17/2017 11:23 AM us Joyce Saldivar MD MAMMO ORDERABLES Final Result * (ABNORMAL) PAP IG LB +HPV APTIMA REFLEX 16,18/45 (07/09/2017 3:07 PM DECAY CONTROL OPERATOR) Diagnosis (A) [facility] ACCOUNT BILL Comment: [...] UTERINE CERVIX / Unknown 07/09/2017 3:07 PM DECAY CONTROL OPERATOR 07/09/2017 Narrative [facility] ACCOUNT BILL - 07/15/2017 5:10 PM DECAY CONTROL OPERATOR Source.............Cervix LMP / Prev Treat...WGC=[id number] No. of containers..01 ThinPrep Vial Resulting Agency Comment [facility] [place] Marylin Aguiar [phone] us Joyce Saldivar MD LAB - PATHOLOGY/CYTOLOGY ORDER CARLOS ENRIQUE Final Result [facility] ACCOUNT BILL [address] [place] [address] * LIPID PROFILE W TCHOL/HDL (06/17/2017 10:22 AM DECAY CONTROL OPERATOR) Cholesterol 185 <200 mg/dL [facility] ACCOUNT [...] BLOOD SPECIMEN / Unknown 06/17/2017 10:22 AM DECAY CONTROL OPERATOR 06/17/2017 Narrative Resulting Agency Comment [facility] Health [facility] [address] [place] [id number] us Tracey Patel MD LAB - CHEMISTRY ORDERABLES Heather l Result [facility] ACCOUNT BILL [id number] [place] [address] * (ABNORMAL) COMPREHENSIVE METABOLIC PANEL (06/17/2017 10:22 AM DECAY CONTROL OPERATOR) Glucose 79 74 - 106 mg/dL [...] BLOOD SPECIMEN / Unknown 06/17/2017 10:22 AM DECAY CONTROL OPERATOR 06/17/2017 Narrative Resulting Agency Comment [facility] [place] [address] [place] [phone] Tracey Patel MD LAB - CHEMISTRY ORDERABLES Heather l Result [facility] ACCOUNT BILL [address] [place] [address] from Last 3 Months or Most Recently Relevant to Health Maintenance Insurance [facility] Care Teams Director Of Advertising Sales Relationship Specialty Start Date End Date Tracey Patel MD PCP - General Family Medicine 06/13/17
--- OUTSIDE RECORDS SUMMARY | 2025-07-07 07:05 | XMS_ITS | Encounter Summary ---
Author Organization [facility] Address [address] [place] [address] Care Team Providers Care Hull Inspector Name Role Phone Roxanna Acosta MD Primary Care Provider [phone] Encounter Details Date Type Department Care Team (Latest Contact Info) Description 06/14/2002 Outpatient Historical [facility] Otf Talavera UNDIAGNOSED CARDIAC MURMURS (Primary Dx) Social History Tobacco Use Types Packs/Day Years Used Date Smoking Tobacco: Never Assessed Comments Unknown Sex and Gender Information Value Date Recorded Sex Assigned at Not on file Legal Sex Female 4:02 AM STORE MGR Gender Identity Not on file Sexual Orientation Not on file documented as of this encounter Plan of Treatment Not on file documented as of this encounter Visit Diagnoses Diagnosis Undiagnosed cardiac murmurs- Primary documented in this encounter Care Teams Hull Inspector Relationship Specialty Start Date End Date Roxanna Acosta MD PCP - General Family Practice 02/19/12 documented as of this encounter
--- OUTSIDE RECORDS SUMMARY | 2025-07-07 07:05 | XMS_ITS | Encounter Summary ---
Author Organization [facility] Address [address] [place] [address] Care Team Providers Care Air Tool Operator Name Role Phone Roxanna Acosta MD Primary Care Provider Encounter Details Date Type Department Care Team (Late st Contact Info) Description 07/20/2007 Outpatient Historical [facility] Maternal and [facility] [address] [place] [phone] Naveed Means MD [id number] [place] [address] Social History Tobacco Use Types Packs/Day Years Used Date Smoking Tobacco: Never Assessed Comments Unknown Sex and Gender Information Value Date Recorded Sex Assigned at Not on file Legal Sex Female 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
--- OUTSIDE RECORDS SUMMARY | 2025-07-07 07:05 | XMS_ITS | Encounter Summary ---
Author Organization [facility] Address [address] [place] [address] Care Team Providers Care Chromium Plater Name Role Phone Roxanna Acosta MD Primary Care Provider Encounter Details Date Type Department Care Team (Late st Contact Info) Description 12/29/2002 Outpatient [facility] Primary Care - [address] [place] [phone] Otf Talavera Social History Tobacco Use Types Packs/Day Years Used Date Smoking Tobacco: Never Assessed Comments Unknown Sex and Gender Information Value Date Recorded Sex Assigned at Not on file Legal Sex Female 4:02 AM GOLF COURSE STARTER Gender Identity Not on file Sexual Orientation Not on file documented as of this encounter Plan of Treatment Not on file documented as of this encounter Visit Diagnoses Not on filedocumented in this encounter Care Teams Chromium Plater Relationship Specialty Start Date End Date Roxanna Acosta MD PCP - General Family Practice 02/19/12 documented as of this encounter
--- OUTSIDE RECORDS SUMMARY | 2025-07-07 07:05 | XMS_ITS | Encounter Summary ---
Author Organization [facility] Address [address] [place] [address] Care Team Providers Care Waxer Name Role Phone Roxanna Acosta MD Primary Care Provider Encounter Details Date Type Department Care Team (Late st Contact Info) Description 11/19/2002 Outpatient [facility] Primary Care - [address] [place] [address] Otf Talavera Social History Tobacco Use Types Packs/Day Years Used Date Smoking Tobacco: Never Assessed Comments Unknown Sex and Gender Information Value Date Recorded Sex Assigned at Not on file Legal Sex Female 4:02 AM NEUROPHYSIOLOGY TECH Gender Identity Not on file Sexual Orientation Not on file documented as of this encounter Plan of Treatment Not on file documented as of this encounter Visit Diagnoses Not on filedocumented in this encounter Care Teams Waxer Relationship Specialty Start Date End Date Roxanna Acosta MD PCP - General Family Practice 02/19/12 documented as of this encounter
--- OUTSIDE RECORDS SUMMARY | 2025-07-07 07:05 | XMS_ITS | Encounter Summary ---
Author Organization [facility] Healthcare Address [address] [place] [address] Care Team Providers Care Registered Dietician Name Role Phone Citlali Gómez DO Primary Care Provider [phone] Encounter Details Date Type Department Care Team (Late st Contact Info) Description 06/28/2025 Telephone [facility] Medical Group [facility] at [place] [address] [place] [address] Cori Dow NP [address] [place] [address] [address] [place] [address] Social History Tobacco Use Types Packs/Day Years Used Date Smoking Tobacco: Never Assessed Comments Unknown Sex and Gender Information Value Date Recorded Sex Assigned at Not on file Legal Sex Female 7:01 PM RELIEF OPERATOR Gender Identity Not on file Sexual Orientation Not on file documented as of this encounter Miscellaneous Notes * Telephone Encounter - Tracey Scott - 06/28/2025 9:52 AM CST Patient returning a call about her x ray results, would like a call back. EF OPERATOR documented in this encounter Plan of Treatment Not on file documented as of this encounter Visit Diagnoses Not on filedocumented in this encounter Care Teams Registered Dietician Relationship Specialty Start Date End Date Citlali Gómez DO [address] [facility] [address] [place] [address] PCP - General Family Medicine 06/28/25 documented as of this encounter
--- OUTSIDE RECORDS SUMMARY | 2025-07-07 07:05 | XMS_ITS | Encounter Summary ---
Author Organization [facility] Address [address] [place] [address] Care Team Providers Care Creel Cleaner Name Role Phone Roxanna Acosta MD Primary Care Provider Encounter Details Date Type Department Care Team (Late st Contact Info) Description 12/30/2001 Outpatient [facility] Primary Care - [address] [place] [phone] Otf Talavera Social History Tobacco Use Types Packs/Day Years Used Date Smoking Tobacco: Never Assessed Comments Unknown Sex and Gender Information Value Date Recorded Sex Assigned at Not on file Legal Sex Female 4:02 AM COTTON MACHINE OPERATOR Gender Identity Not on file Sexual Orientation Not on file documented as of this encounter Plan of Treatment Not on file documented as of this encounter Visit Diagnoses Not on filedocumented in this encounter Care Teams Creel Cleaner Relationship Specialty Start Date End Date Roxanna Acosta MD PCP - General Family Practice 02/19/12 documented as of this encounter
--- OUTSIDE RECORDS SUMMARY | 2025-07-07 07:05 | XMS_ITS | Encounter Summary ---
Author Organization [facility] Healthcare Address [address] [place] [address] Care Team Providers Care Channel Account Manager Name Role Phone Citlali Gómez DO Primary Care Provider [phone] Encounter Details Date Type Department Care Team ([facility] st Contact Info) Description 06/28/2025 Results Follow-Up [facility] Medical Group [facility] at [place] [address] [place] [address] Cori Dow NP [address] [facility] [address] [place], [place] [id number] XR Clavicle Left Social History Tobacco Use Types Packs/Day Years Used Date Smoking Tobacco: Never Assessed Comments Unknown Sex and Gender Information Value Date Recorded Sex Assigned at Not on file Legal Sex Female 7:01 PM BONE DENSITY TECHNICIAN Gender Identity Not on file Sexual Orientation Not on file documented as of this encounter Plan of Treatment Not on file documented as of this encounter Visit Diagnoses Not on filedocumented in this encounter Care Teams Channel Account Manager Relationship Specialty Start Date End Date Citlali Gómez DO [address] [facility] [address] [place], [place] [id number] PCP - General Family Medicine 06/28/25 documented as of this encounter
--- OUTSIDE RECORDS SUMMARY | 2025-07-07 07:05 | XMS_ITS | Encounter Summary ---
Author Organization [facility] Address [address] [place] [address] Care Team Providers Care Metal Hanger Name Role Phone Roxanna Acosta MD Primary Care Provider Encounter Details Date Type Department Care Team (Late st Contact Info) Description 06/14/2002 Outpatient Historical [facility] ([facility]) [address] [place] [address] [place] Gannon MD NO ADDRESS ON FILE Social History Tobacco Use Types Packs/Day Years Used Date Smoking Tobacco: Never Assessed Comments Unknown Sex and Gender Information Value Date Recorded Sex Assigned at Not on file Legal Sex Female 4:02 AM AIRPORT UTILITY WORKER Gender Identity Not on file Sexual Orientation Not on file documented as of this encounter Plan of Treatment Not on file documented as of this encounter Visit Diagnoses Not on filedocumented in this encounter Care Teams Metal Hanger Relationship Specialty Start Date End Date Roxanna Acosta MD PCP - General Family Practice 02/19/12 documented as of this encounter
--- OUTSIDE RECORDS SUMMARY | 2025-07-07 07:05 | XMS_ITS | Encounter Summary ---
Author Organization [facility] Address [address] [place] [address] Care Team Providers Care Environmental Services Assistant Name Role Phone Roxanna Acosta MD Primary Care Provider [phone] Encounter Details Date Type Department Care Team (Late st Contact Info) Description 10/18/2002 Outpatient [facility] Primary Care - [address] [place] [phone] Otf Talavera Social History Tobacco Use Types Packs/Day Years Used Date Smoking Tobacco: Never Assessed Comments Unknown Sex and Gender Information Value Date Recorded Sex Assigned at Not on file Legal Sex Female 4:02 AM ROTARY SHEAR WORKER HELPER Gender Identity Not on file Sexual Orientation Not on file documented as of this encounter Plan of Treatment Not on file documented as of this encounter Visit Diagnoses Not on filedocumented in this encounter Care Teams Environmental Services Assistant Relationship Specialty Start Date End Date Roxanna Acosta MD PCP - General Family Practice 02/19/12 documented as of this encounter
--- OUTSIDE RECORDS SUMMARY | 2025-07-07 07:05 | XMS_ITS | Encounter Summary ---
Author Organization Address [address] [place] [address] Care Team Providers Care Salesperson Burial Plots Name Role Phone Roxanna Acosta MD Primary Care Provider [phone] Encounter Details Date Type Department Care Team (Late st Contact Info) Description 05/31/2002 Outpatient [facility] Primary Care - [address] [place] [address] Otf Talavera Social History Tobacco Use Types Packs/Day Years Used Date Smoking Tobacco: Never Assessed Comments Unknown Sex and Gender Information Value Date Recorded Sex Assigned at Not on file Legal Sex Female 4:02 AM WICKER WORKER Gender Identity Not on file Sexual Orientation Not on file documented as of this encounter Plan of Treatment Not on file documented as of this encounter Visit Diagnoses Not on filedocumented in this encounter Care Teams Salesperson Burial Plots Relationship Specialty Start Date End Date Roxanna Acosta MD PCP - General Family Practice 02/19/12 documented as of this encounter
--- OUTSIDE RECORDS SUMMARY | 2025-07-07 07:05 | XMS_ITS | Encounter Summary ---
Author Organization [facility] Address 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
--- OUTSIDE RECORDS SUMMARY | 2025-07-07 07:05 | XMS_ITS | Encounter Summary ---
Author Organization [employer] Address [address] [place] [address] Care Team Providers Care Bobbin Collector Name Role Phone Roxanna Acosta MD Primary Care Provider Encounter Details Date Type Department Care Team (Latest Contact Info) Description 07/16/2007 Outpatient [facility] Enrique Mckinney MD [address] [facility] [address] [facility] [place] [address] Naveed Means MD [facility] [address] [facility] [address] [place] [address] Other Specified Complication, Antepartum Social History Tobacco Use Types Packs/Day Years Used Date Smoking Tobacco: Never Assessed Comments Unknown Sex and Gender Information Value Date Recorded Sex Assigned at Not on file Legal Sex Female 4:02 AM ENGINE GENERATOR ASSEMBLER Gender Identity Not on file Sexual Orientation Not on file documented as of this encounter Plan of Treatment Not on file documented as of this encounter Visit Diagnoses Diagnosis Other specified complication, antepartum(646.83) Other specified complication, antepartum documented in this encounter Care Teams Bobbin Collector Relationship Specialty Start Date End Date Roxanna Acosta MD PCP - General Family Practice 02/19/12 documented as of this encounter
--- OUTSIDE RECORDS SUMMARY | 2025-07-07 07:05 | XMS_ITS | Encounter Summary ---
Author Organization [facility] Address 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
[2025-07-07 07:30] LABS: Hematocrit 46.6 % (37.0-47.0); Hemoglobin 15.7 g/dL (12.0-15.0); Mean Corpuscular HGB Conc 33.7 g/dl (32-36); Mean Corpuscular Hemoglobin 31.2 pg (26-34); Mean Corpuscular Volume 92.5 fl (80-100); Platelet Count Result 213 k/mm3 (150-375); Red Blood Count 5.04 M/mm3 (4.2-5.4); White Blood Count 5.7 K/mm3 (4.5-10.0)
[2025-07-07 07:45] LABS: Iron 125 ug/dL (37-170)
[2025-07-07 07:46] LABS: Alanine Aminotransferase 14 U/L (6-35); Albumin Level 4.7 g/dL (3.5-5.1); Alkaline Phosphatase 54 U/L (38-126); Anion Gap 5 mmol/L (4-12); Aspartate Amino Transferase 26 U/L (14-36); Bilirubin,Total 0.9 mg/dL (0.2-1.3); Blood Urea Nitrogen 19 mg/dL (7-17); CRP < 0.5 mg/dL (<1.0); Calcium 9.6 mg/dL (8.4-10.2); Carbon Dioxide 26 mmol/L (22-30); Chloride 104 mmol/L (98-107); Cholesterol 215 mg/dL (0-200); Estimated Glomerular Filt Rate > 60; Glucose 97 mg/dL (65-110); HDL Direct 93 mg/dL; Potassium 4.8 mmol/L (3.4-5.0); Sodium 135 mmol/L (137-145); Total Protein 7.7 g/dL (6.3-8.2); Triglycerides 67 mg/dL (<150); Uric Acid 4.2 mg/dL (2.5-7.5)
[2025-07-07 07:56] LABS: Percent Iron Saturation 39 % (20-50)
[2025-07-07 08:19] LABS: Thyroid Stimulating Hormone 4.140 uIU/mL (0.465-4.680)
[2025-07-07 08:26] LABS: Ferritin 50.20 ng/mL (6.24-137)
[2025-07-08 11:08] LABS: ANA by IFA Rfx Titer/Pattern Negative (.); Anti-CCP Ab, IgG/IgA 9 units (0-19)
== END 2025-07-07 07:01 | disposition home or self-care (01) ==
LOC: ANHLAB 07:02
PROVIDERS: PCP Family Medicine; Visit Provider Family Medicine
DX: E78.5 Hyperlipidemia, unspecified (principal); F90.9 Attention-deficit hyperactivity disorder, unspecified type; Z79.899 Other long term (current) drug therapy; E66.3 Overweight; D64.9 Anemia, unspecified; D50.9 Iron deficiency anemia, unspecified; R53.83 Other fatigue; M25.50 Pain in unspecified joint; F32.A Depression, unspecified
CPT/HCPCS: 36415; 80053; 80061; 82728; 83540; 83550; 84443; 84550; 85027; 85652; 86038; 86140; 86200; 86430

== ENCOUNTER 2025-07-14 06:40 | Outpatient (CLI) | payer OTHER, SELFPAY ==
--- NOTE | ~2025-07-14 | CT_ITS ---
EXAMINATION:CT chest high resolution wo co DATE: 07/14/2025 07:09 INDICATION: Reason listed on requisition is hypertrophy of bone; unspecified shoulder TECHNIQUE: Computed tomography (CT) of the chest was performed without intravenous contrast. The dose-length product (DLP) was 124.14 mGy-cm. COMPARISON: None. FINDINGS: Mild degenerative changes developing throughout the thoracic spine. No acute or aggressive bony process seen. The lungs are clear. No consolidation effusion or pneumothorax. Interstitial lung pattern appears within normal limits. Central large airways are patent. Heart and great vessels appear normal. No acute process seen in the visualized upper abdomen or extrathoracic soft tissues. IMPRESSION: High-resolution chest CT within normal limits. History is not entirely cleared; consider correlation with dedicated shoulder imaging as clinically appropriate. Reviewed, dictated and finalized at location A. AGE DELIVERY DRIVER IMPRESSION: High-resolution chest CT within normal limits. History is not entir duglas cleared; consider correlation with dedicated shoulder imaging as clinically appropriate.
--- OUTSIDE RECORDS SUMMARY | 2025-07-14 06:44 | XMS_ITS | Clinical Summary ---
Author Organization [facility] [address] Address [address] [place] [address] Care Team Providers Care General Service Technician Name Role Phone Citlali Gómez DO Primary Care Provider [phone] Allergies Active Allergy Reactions Criticality Noted Date Comments Benadryl Decongestant Other (See comments) Low 01/03 Feel bad physically and mentally Medications dextroamphetami ne-amphetamine XR (ADDERALL XR) 30 mg 24 hr capsule Take 1 capsule (30 mg total) by mouth district associate judge before breakfast 1 Active ferrous sulfate ER [...] Department Care Team Description 06/28/2025 Results Follow-Up [facility] Medical Group Convenient Care at [address] [phone] Cori Dow NP XR Clavicle Left 06/28/[address] [facility] Convenient Care at [address] [address] Cori Dow NP 06/27/2025 6:25 PM RELIEF COOK - 06/27/2025 11:59 PM RELIEF COOK Hospital Encounter [address] [address] Mass of left chest wall Discharge Disposition: Discharge to home or self care 06/27/2025 6:00 PM RELIEF COOK Office Visit [facility] Convenient Care at [address] [address] Cori Dow, SHILPI Mass of [...] file Legal Sex Female 7:01 PM RELIEF COOK Gender Identity Not on file Sexual Orientation Not on file Last Filed Vital Signs Vital Sign Reading Time Taken Comments Blood Pressure 112/81 06/27/2025 5:53 PM RELIEF COOK Pulse 100 06/27/2025 5:53 PM RELIEF COOK Temperature 36.8 C (98.2 F) 06/27/2025 5:53 PM RELIEF COOK Respiratory Rate 20 06/27/2025 5:53 PM RELIEF COOK Oxygen Saturation 100% 06/27/2025 5:53 PM RELIEF COOK Inhaled Oxygen Concentration - - Weight 66.5 kg (146 lb 9.6 oz) 06/27/2025 5:53 P M RELIEF COOK Height 157.5 cm (5' 2) 02/28/2024 10:14 [...] (Appt Today, Awaiting Results) 06/27/2025 6:41 PM RELIEF COOK Mass of left chest wall from Last 3 Months Results * XR Clavicle Left (06/27/2025 6:41 PM RELIEF COOK) Anatomical Region Laterality Modality Clavicle, Chest Left Computed Radiogr aphy 06/28/2025 7:16 AM RELIEF COOK Impressions 06/28/2025 7:16 AM RELIEF COOK 1. No acute radiographic abnormality. Consider follow-up CT or MRI as clinically warranted. Electronically signed by: Joel Collier M.D. Narrative 06/28/2025 7:16 AM RELIEF COOK EXAM DESCRIPTION: XR CLAVICLE LEFT COMPLETE REASON [...] signed by: Joel Collier M.D. Cori Dow BRAKER PASSENGER TRAIN IMG XR PROCEDURES Final Re sult from Last 3 Months Insurance [facility] CHOICE PLUS [facility] Care Teams General Service Technician Relationship Specialty Start Date End Date Citlali Gómez DO [facility] [facility] [address] [place] [address] PCP - General Family Medicine 06/28/25
--- OUTSIDE RECORDS SUMMARY | 2025-07-14 06:44 | XMS_ITS | Clinical Summary ---
Author Organization [facility] Address [address] [place] [address] Phone Care Team Providers Care Manager Surgical Name Role Phone Roxanna Acosta MD Primary Care Provider [phone] Allergies Active Allergy Reactions Criticality Noted Date [...] on file Legal Sex Female 4:02 AM PERSONAL BANKING REPRESENTATIVE Gender Identity Not on file Sexual [...] 11/10/2020, 09/29/2019, Additional history exists HPV VACCINES (No Doses Required) Completed Procedures Procedure Name Priority Date/Time Associated Diagnosis [...] STI screening follows ACOG guidelines(PB 168, 140, MYX140). See individual assays for performing site location. [...] 2:34 PM CDT [facility] MEDICAL INSURANCE VERIFIER: SEE COMMENT 2020 2:34 PM CDT [facility] Comment: ASHLEY, CT(ASCP) CT Screening location: [facility] [address] [place] [address] REVIEW MEDICAL INSURANCE VERIFIER: SEE COMMENT 11/16/2020 2:34 PM CDT [facility] Comment: TONEY, CT(ASCP) CT Screening location: [place] [address] [place] [address] EXPLANATORY NOTE SEE COMMENT 021 2:34 PM [...] CDT [facility] Comment: Methodology: Engineering And Operations Director-Mediated Amplification This assay detects E6/E7 viral messenger RNA (mRNA) from 14 high-risk HPV types (16,18,31,33,35,39,45,51,52,56,58,59,66,68). The analytical performance characteristics of this assay have been determined by [employer]. The modifications have not been cleared or approved by the FDA. This assay has been validated pursuant to the CLIA regulations and is used for clinical purposes. For additional information, please refer to http://education.[employer]/faq/BGM444h2 (This link if provided for information/ educational purposes only.) Genital SWAB OF ENDOCERVIX / Unknown Collection / Unknown 11/10/2020 1:42 PM CDT 11/10/2020 9:41 PM CDT Narrative [facility] - 11/16/2020 2:34 PM CDT Performing Organization Information: Site ID: [id number] [facility] Address: [address] [place] [address] Director: Robby Steven D.O., MPH Site ID: [id number] [facility] Address: [address] [place] [address] Director: Parth Herrera Enrique Mckinney MD PATHOLOGY/CYTOLOGY ORDERABLES Final Result [facility] [phone] from Last 3 Months or Most Recently Relevant to Health Maintenance Insurance [facility] [id number] [facility] [id number] Advance Directives For more information, please contact: [phone] * Full Code (Latest Code Status on [...] 11:26 PM 08/16/2009 7:12 AM Care Teams Manager Surgical Relationship Specialty Start Date End Date Roxanna Acosta MD PCP - General Family Practice 02/19/12
--- OUTSIDE RECORDS SUMMARY | 2025-07-14 06:44 | XMS_ITS | Encounter Summary ---
Author Organization [employer] [facility] Address 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 Gender Identity Not on file Sexual Orientation Not on file documented as of this encounter Plan of Treatment Not on file documented as of this encounter Procedures Procedure Name Priority Date/Time Associated Diagnosis Comments URINALYSIS W/REFLEX MICROSCOPIC Stat 10/25/2007 6:26 PM CDT documented in this encounter Results * URINALYSIS (10/25/2007 6:26 PM CDT) WBC UA Invalid Result 0 - 5 [facility] CLARITY UA Invalid Result Clear [facility] PROTEIN UA Invalid Result Negative [facility] EPITHELIAL CELLS, URINE Invalid Result [facility] BILIRUBIN UA Invalid Result Negative [facility] LEUKOCYTE ESTERASE UA Invalid Result Negative [facility] RBC UA Invalid Result 0 - 4 /HPF [facility] SPECIFIC GRAVITY UA Invalid Result 1.001 - 1.035 [facility] GLUCOSE UA Invalid Result Negative [facility] BLOOD UA Invalid Result Negative [facility] TRANSITIONAL EPI Invalid Result [facility] COLOR UA Invalid Result [facility] Comment: Lab was notified by Laura 10/25/07 7:35 PM that specimen was mislabeled. Patient's account has been credited. NITRITE UA Invalid Result Negative [facility] UROBILINOGEN UA Invalid Result <1 [facility] BACTERIA UA Invalid Result None Seen [facility] PH UA Invalid Result 5.0 - 8.0 [facility] KETONES UA Invalid Result Negative [facility] 10/25/2007 6:26 PM CDT 10/25/2007 6:30 PM CDT us Enrique Mckinney MD URINE ORDERABLES Edited [facility] [address] [facility] [place] [address] documented in this encounter Visit Diagnoses Diagnosis Normal delivery documented in this encounter Care Teams Group Reservations Coordinator Relationship Specialty Start Date End Date Roxanna Acosta MD PCP - General Family Practice 02/19/12 documented as of this encounter
--- OUTSIDE RECORDS SUMMARY | 2025-07-14 06:45 | XMS_ITS | Encounter Summary ---
Author Organization [employer] Address 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
--- OUTSIDE RECORDS SUMMARY | 2025-07-14 06:45 | XMS_ITS | Encounter Summary ---
Author Organization [facility] Address [address] [place] [address] Care Team Providers Care Agricultural Researcher Name Role Phone Roxanna Acosta MD Primary Care Provider [phone] Encounter Details Date Type Department Care Team (Late st Contact Info) Description 05/19/2012 Chart Note [facility] Services [address] [place] [address] Kyleigh Davis, Physical Therapist Social History Tobacco Use Types Packs/Day Years Used Date Smoking Tobacco: Never Smokeless Tobacco: Never Alcohol Use Standard Drinks/Week Comments No 0 (1 standard drink = 0.6 oz pur e alcohol) Comments Unknown Sex and Gender Information Value Date Recorded Sex Assigned at Not on file 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 Kyleigh Davis [facility] [address] [place] [address]. [address] [place] [address] documented in this encounter Plan of Treatment Not on file documented as of this encounter Visit Diagnoses Not on filedocumented in this encounter Care Teams Agricultural Researcher Relationship Specialty Start Date End Date Roxanna Acosta MD PCP - General Family Practice 02/19/12 documented as of this encounter
--- OUTSIDE RECORDS SUMMARY | 2025-07-14 06:45 | XMS_ITS | Encounter Summary ---
Author Organization [facility] Address 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
--- OUTSIDE RECORDS SUMMARY | 2025-07-14 06:45 | XMS_ITS | Encounter Summary ---
Author Organization [employer] Address [address] [place] [address] Care Team Providers Care Granulator Machine Operator Name Role Phone Roxanna Acosta MD Primary Care Provider Encounter Details Date Type Department Care Team (Late st Contact Info) Description 02/17/2004 Outpatient Historical [facility] Barak Greenberg MD [address] [facility] [address] [place] [address] ABDOMINAL PAIN LUQ (Primary Dx) Social History Tobacco Use Types Packs/Day Years Used Date Smoking Tobacco: Never Assessed Comments Unknown Sex and Gender Information Value Date Recorded Sex Assigned at Not on file 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
--- OUTSIDE RECORDS SUMMARY | 2025-07-14 06:45 | XMS_ITS | Encounter Summary ---
Author Organization [facility] Address [address] [place] [address] Care Team Providers Care Automobile Sales Representative Name Role Phone Roxanna Acosta MD Primary Care Provider [phone] Encounter Details Date Type Department Care Team (Late st Contact Info) Description 02/15/2004 Outpatient Historical [facility] Primary Care - [address] [place] [phone] Barak Greenberg MD [address] [facility] [address] [place], [place] [id number] Social History Tobacco Use Types Packs/Day Years Used Date Smoking Tobacco: Never Assessed Comments Unknown Sex and Gender Information Value Date Recorded Sex Assigned at Not on file 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
--- OUTSIDE RECORDS SUMMARY | 2025-07-14 06:45 | XMS_ITS | Encounter Summary ---
Author Organization [employer] Address [address] [place] [address] Care Team Providers Care Plastic Sewer Name Role Phone Roxanna Acosta MD Primary Care Provider [phone] Encounter Details Date Type Department Care Team (Latest Contact Info) Description 10/26/2004 Outpatient Historical HIS PATIENT IN A BED Freddie Márquez OTHER CURR COND-ANTEPARTUM (Primary Dx) Social History Tobacco Use Types Packs/Day Years Used Date Smoking Tobacco: Never Assessed Comments Unknown Sex and Gender Information Value Date Recorded Sex Assigned at Not on file Legal Sex Female 4:02 AM REJECTOR Gender Identity Not on file Sexual Orientation Not on file documented as of this encounter Plan of Treatment Not on file documented as of this encounter Procedures Procedure Name Priority Date/Time Associated Diagnosis Comments CBC WITH DIFFERENTIAL Routine 10/26/2004 11:50 AM REJECTOR CBC WITH DIFFERENTIAL Routine 10/26/2004 11:50 AM REJECTOR URINALYSIS W/REFLEX MICROSCOPIC Routine 10/26/2004 11:50 AM REJECTOR URINALYSIS W/REFLEX MICROSCOPIC Routine 10/26/2004 11:15 AM REJECTOR documented in this encounter Results * URINALYSIS (10/26/2004 11:50 AM REJECTOR) COLOR UA Yellow INTERFACE SYSTEM CLARITY UA [...] /HPF INTERFACE SYSTEM 10/26/2004 11:5 0 AM REJECTOR Freddie Márquez URINE ORDERABLES Final Result Performing Organization Address [facility] Phone Number INTERFACE SYSTEM Refer to clinic/hospital department * (ABNORMAL) CBC WITH DIFFERENTIAL (10/26/2004 11:50 AM REJECTOR) NEUTROPHILS 74(H) 45 - 70 % INTERFAC [...] K/uL INTERFACE SYSTEM 10/26/2004 11:5 0 AM REJECTOR Freddie Márquez HEMATOLOGY ORDERABLES Final Resu lt Performing Organization Address [facility] Phone Number INTERFACE SYSTEM Refer to clinic/hospital department * (ABNORMAL) CBC WITH DIFFERENTIAL (10/26/2004 11:50 AM REJECTOR) WBC 7.6 4.0 - 9.8 K/uL INTERFACE [...] fL INTERFACE SYSTEM 10/26/2004 11:5 0 AM REJECTOR Freddie Márquez HEMATOLOGY ORDERABLES Final Resu lt INTERFACE SYSTEM Refer to clinic/hospital department * (ABNORMAL) URINALYSIS (10/26/2004 11:15 AM REJECTOR) COLOR UA Colorless INTERFACE SYSTEM CLARITY UA [...] /HPF INTERFACE SYSTEM 10/26/2004 11:1 5 AM REJECTOR Freddie Márquez URINE ORDERABLES Final Result INTERFACE SYSTEM Refer to clinic/hospital department documented in this encounter Visit Diagnoses Diagnosis Other current maternal conditions classifiable elsewhere, antepartum- Primary documented in this encounter Care Teams Plastic Sewer Relationship Specialty Start Date End Date Roxanna Acosta MD PCP - General Family Practice 02/19/12 documented as of this encounter
--- OUTSIDE RECORDS SUMMARY | 2025-07-14 06:46 | XMS_ITS | Encounter Summary ---
Author Organization [facility] Address [address] [place] [address] Care Team Providers Care Assistant Fitness Manager Name Role Phone Roxanna Acosta MD Primary Care Provider Encounter Details Date Type Department Care Team (Late st Contact Info) Description 09/30/2003 Outpatient [facility] Primary Care - [address] [place] [address] Otf Talavera Social History Tobacco Use Types Packs/Day Years Used Date Smoking Tobacco: Never Assessed Comments Unknown Sex and Gender Information Value Date Recorded Sex Assigned at Not on file Legal Sex Female 4:02 AM MOSS PICKER Gender Identity Not on file Sexual Orientation Not on file documented as of this encounter Plan of Treatment Not on file documented as of this encounter Visit Diagnoses Not on filedocumented in this encounter Care Teams Assistant Fitness Manager Relationship Specialty Start Date End Date Roxnana Acosta MD PCP - General Family Practice 02/19/12 documented as of this encounter
--- OUTSIDE RECORDS SUMMARY | 2025-07-14 06:48 | XMS_ITS | Encounter Summary ---
Author Organization [facility] Address 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
--- OUTSIDE RECORDS SUMMARY | 2025-07-14 06:48 | XMS_ITS | Encounter Summary ---
Author Organization [facility] Address 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
--- OUTSIDE RECORDS SUMMARY | 2025-07-14 06:49 | XMS_ITS | Encounter Summary ---
Author Organization [facility] Address [address] [place] [address] Care Team Providers Care Pressure Control Supervisor Name Role Phone Roxanna Acosta MD Primary Care Provider Encounter Details Date Type Department Care Team (Late st Contact Info) Description 09/02/2003 Outpatient [facility] Primary Care - [address] [place] [address] Otf Talavera Social History Tobacco Use Types Packs/Day Years Used Date Smoking Tobacco: Never Assessed Comments Unknown Sex and Gender Information Value Date Recorded Sex Assigned at Not on file Legal Sex Female 4:02 AM SLATE CUTTER Gender Identity Not on file Sexual Orientation Not on file documented as of this encounter Plan of Treatment Not on file documented as of this encounter Visit Diagnoses Not on filedocumented in this encounter Care Teams Pressure Control Supervisor Relationship Specialty Start Date End Date Roxanna Acosta MD PCP - General Family Practice 02/19/12 documented as of this encounter
--- OUTSIDE RECORDS SUMMARY | 2025-07-14 06:50 | XMS_ITS | Encounter Summary ---
Author Organization [facility] Address [address] [place] [address] Care Team Providers Care Program Director Cable Television Name Role Phone Roxanna Acosta MD Primary Care Provider [phone] Encounter Details Date Type Department Care Team (Late st Contact Info) Description 05/01/2006 Orders Only [facility] Primary Care - [facility] [address] [place] [address] Barak Greenberg MD [address] [facility] [address] [place] [address] Social History Tobacco Use Types Packs/Day Years Used Date Smoking Tobacco: Never Assessed Comments Unknown Sex and Gender Information Value Date Recorded Sex Assigned at Not on file Legal Sex Female 4:02 AM VP INTEGRITY Gender Identity Not on file Sexual Orientation Not on file documented as of this encounter Progress Notes * Barak Greenberg MD - 05/17/2008 6:57 PM CDT [facility] BARAK GREENBERG MD [address] [place] [address] May 01, 2006 ASHOK JIMENEZ [address] [place] [address] ASHOK JAQUI has been under our care [...] on filedocumented in this encounter Care Teams Program Director Cable Television Relationship Specialty Start Date End Date Roxanna Acosta MD PCP - General Family Practice 02/19/12 documented as of this encounter
--- OUTSIDE RECORDS SUMMARY | 2025-07-14 06:50 | XMS_ITS | Encounter Summary ---
Author Organization [facility] Address [address] [place] [address] Care Team Providers Care Web Press Jogger Name Role Phone Roxanna Acosta MD Primary Care Provider Encounter Details Date Type Department Care Team (Late st Contact Info) Description 09/15/2003 Outpatient [facility] Primary Care - [address] [place] [address] Otf Talavera Social History Tobacco Use Types Packs/Day Years Used Date Smoking Tobacco: Never Assessed Comments Unknown Sex and Gender Information Value Date Recorded Sex Assigned at Not on file Legal Sex Female 4:02 AM CAKE ICER AND PACKER Gender Identity Not on file Sexual Orientation Not on file documented as of this encounter Plan of Treatment Not on file documented as of this encounter Visit Diagnoses Not on filedocumented in this encounter Care Teams Web Press Jogger Relationship Specialty Start Date End Date Roxanna Acosta MD PCP - General Family Practice 02/19/12 documented as of this encounter
--- OUTSIDE RECORDS SUMMARY | 2025-07-14 06:50 | XMS_ITS | Encounter Summary ---
Author Organization [facility] Address [address] [place] [address] Care Team Providers Care Pot Pusher Name Role Phone Roxanna Acosta MD Primary Care Provider Encounter Details Date Type Department Care Team (Late st Contact Info) Description 11/03/2006 Outpatient Historical [facility] Primary Care - [address] [place] [address] Barak Greenberg MD [address] [facility] [address] [place] [address] Social History Tobacco Use Types Packs/Day Years Used Date Smoking Tobacco: Never Assessed Comments Unknown Sex and Gender Information Value Date Recorded Sex Assigned at Not on file 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
--- OUTSIDE RECORDS SUMMARY | 2025-07-14 06:51 | XMS_ITS | Encounter Summary ---
Author Organization [facility] Address [address] [place] [address] Care Team Providers Care Solar Energy Sales Specialist Name Role Phone Roxanna Acosta MD Primary Care Provider Encounter Details Date Type Department Care Team (Late st Contact Info) Description 11/27/2006 Orders Only [facility] Primary Care - [address] [place] [address] Barak Greenberg MD [address] [facility] [address] [place] [address] Social History Tobacco Use Types Packs/Day Years Used Date Smoking Tobacco: Never Assessed Comments Unknown Sex and Gender Information Value Date Recorded Sex Assigned at Not on file 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 LAST VISIT: 11-03-06 PCP: keon. ALTERNATIVE PHONE NUMBER: [phone] WHO CALLED: Patient called. CURRENT ALLERGY LIST: [...] Fills, status: DISCONTINUED, 11/27/2006, Comment: called to [phone]...sylwia. LEXAPRO ORAL TABLET 10 MG, 1 Every [...] on filedocumented in this encounter Care Teams Solar Energy Sales Specialist Relationship Specialty Start Date End Date Roxanna Acosta MD PCP - General Family Practice 02/19/12 documented as of this encounter
--- OUTSIDE RECORDS SUMMARY | 2025-07-14 06:51 | XMS_ITS | Encounter Summary ---
Author Organization [facility] Address [address] [place] [address] Care Team Providers Care Rheostat Assembler Name Role Phone Roxanna Acosta MD Primary Care Provider Encounter Details Date Type Department Care Team (Late st Contact Info) Description 12/09/2005 Orders Only [facility] Primary Care - [address] [place] [address] Barak Greenberg MD [address] [facility] [address] [place] [address] Social History Tobacco Use Types Packs/Day Years Used Date Smoking Tobacco: Never Assessed Comments Unknown Sex and Gender Information Value Date Recorded Sex Assigned at Not on file 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 LAST VISIT: 02-15-04 PCP: rian. ALTERNATIVE PHONE NUMBER: [phone] WHO CALLED: Patient called. CURRENT ALLERGY LIST: [facility] NUMBER: [phone] PROBLEMS: pt daughter had a staph infection [...] SPECIALTY REFERRAL: PODIATRY Dr. Mendez Panda ph: [phone] fax: [phone]. Electronically Signed by: Barak Greenberg MD on Friday, December 09, 2005 documented in this encounter Plan of Treatment Not on file documented as of this encounter Visit Diagnoses Not on filedocumented in this encounter Care Teams Rheostat Assembler Relationship Specialty Start Date End Date Roxanna Acosta MD PCP - General Family Practice 02/19/12 documented as of this encounter
--- OUTSIDE RECORDS SUMMARY | 2025-07-14 06:51 | XMS_ITS | Encounter Summary ---
Author Organization [facility] Address [address] [place] [address] Care Team Providers Care Maintenance Pipefitter Name Role Phone Roxanna Acosta MD Primary Care Provider Encounter Details Date Type Department Care Team (Late st Contact Info) Description 05/01/2006 Outpatient Historical [facility]3] Primary Care - [address] [place] [address] Barak Greenberg MD [address] [facility] [address] [place] [address] Social History Tobacco Use Types Packs/Day Years Used Date Smoking Tobacco: Never Assessed Comments Unknown Sex and Gender Information Value Date Recorded Sex Assigned at Not on file Legal Sex Female 4:02 AM RADIO MACHINIST Gender Identity Not on file Sexual Orientation [...] on filedocumented in this encounter Care Teams Maintenance Pipefitter Relationship Specialty Start Date End Date Roxanna Acosta MD PCP - General Family Practice 02/19/12 documented as of this encounter
--- OUTSIDE RECORDS SUMMARY | 2025-07-14 06:54 | XMS_ITS | Encounter Summary ---
Author Organization [facility] Address [address] [place] [address] Care Team Providers Care Bulk Picker Name Role Phone Roxanna Acosta MD [...] on file Legal Sex Female 4:02 AM POWER CRANE OPERATOR Gender Identity Not on file Sexual Orientation Not on file documented as of this encounter Plan of Treatment Not on file documented as of this encounter Visit Diagnoses Diagnosis Second-degree perineal laceration, with delivery- Primary documented in this encounter Care Teams Bulk Picker Relationship Specialty Start Date End Date Roxanna Acosta MD PCP - General Family Practice 02/19/12 documented as of this encounter
--- OUTSIDE RECORDS SUMMARY | 2025-07-14 06:54 | XMS_ITS | Encounter Summary ---
Author Organization [employer] Address [address] [place] [address] Care Team Providers Care Patient Financial Coordinator Name Role Phone Roxanna Acosta MD Primary Care Provider [phone] Encounter Details Date Type Department Care Team [...] on file Legal Sex Female 4:02 AM LITIGATION PARALEGAL Gender Identity Not on file Sexual Orientation Not on file documented as of this encounter Plan of Treatment Not on file documented as of this encounter Visit Diagnoses Diagnosis Other current maternal conditions classifiable elsewhere, antepartum- Primary documented in this encounter Care Teams Patient Financial Coordinator Relationship Specialty Start Date End Date Roxanna Acosta MD PCP - General Family Practice 02/19/12 documented as of this encounter
--- OUTSIDE RECORDS SUMMARY | 2025-07-14 06:55 | XMS_ITS | Encounter Summary ---
Author Organization [facility] Address [address] [place] [address] Care Team Providers Care Information Assurance Analyst Name Role Phone Roxanna Acosta MD Primary Care Provider Encounter Details Date Type Department Care Team (Late st Contact Info) Description 06/18/2007 Outpatient Historical [facility] LEAD OXIDE MILL TENDER - Medical [address] [address] Enrique Mckinney MD [address] [place] [phone] Social History Tobacco Use Types Packs/Day Years Used Date Smoking Tobacco: Never Assessed Comments Unknown Sex and Gender Information Value Date Recorded Sex Assigned at Not on file Legal Sex Female 4:02 AM HARDWARE DEVELOPER Gender Identity Not on file Sexual Orientation Not on file documented as of this encounter Plan of Treatment Not on file documented as of this encounter Visit Diagnoses Not on filedocumented in this encounter Care Teams Information Assurance Analyst Relationship Specialty Start Date End Date Roxanna Acosta MD PCP - General Family Practice 02/19/12 documented as of this encounter
--- OUTSIDE RECORDS SUMMARY | 2025-07-14 06:55 | XMS_ITS | Encounter Summary ---
Author Organization [facility] Address [address] [place] [address] Care Team Providers Care Clinical Applications Specialist Name Role Phone Roxanna Acosta MD Primary Care Provider Encounter Details Date Type Department Care Team (Late st Contact Info) Description 12/09/2005 Outpatient Historical [facility] Primary Care - [address] [place] [address] Barak Greenberg MD [address] [facility] [address] [place] [address] Social History Tobacco Use Types Packs/Day Years Used Date Smoking Tobacco: Never Assessed Comments Unknown Sex and Gender Information Value Date Recorded Sex Assigned at Not on file Legal Sex Female 4:02 AM SPIRAL TUBE WINDER HELPER Gender Identity Not on file Sexual [...] filedocumented in this encounter Care Teams Clinical Applications Specialist Relationship Specialty Start Date End Date Roxanna Acosta MD PCP - General Family Practice 02/19/12 documented as of this encounter
--- OUTSIDE RECORDS SUMMARY | 2025-07-14 06:55 | XMS_ITS | Encounter Summary ---
Author Organization [facility] Address [address] [place] [address] Care Team Providers Care Cupola Liner Name Role Phone Roxanna Acosta MD Primary Care Provider Encounter Details Date Type Department Care Team (Late st Contact Info) Description 05/20/2007 Outpatient Historical [facility] STEWARD RACETRACK - [address] [place] [address] Enrique Mckinney MD [address] [place] [address] [place] [address] Social History Tobacco Use Types Packs/Day Years Used Date Smoking Tobacco: Never Assessed Comments Unknown Sex and Gender Information Value Date Recorded Sex Assigned at Not on file Legal Sex Female 4:02 AM FOLDER SEAMER Gender Identity Not on file Sexual Orientation Not on file documented as of this encounter Plan of Treatment Not on file documented as of this encounter Visit Diagnoses Not on filedocumented in this encounter Care Teams Cupola Liner Relationship Specialty Start Date End Date Roxanna Acosta MD PCP - General Family Practice 02/19/12 documented as of this encounter
--- OUTSIDE RECORDS SUMMARY | 2025-07-14 06:55 | XMS_ITS | Encounter Summary ---
Author Organization [facility] Address [address] [place] [address] Care Team Providers Care Whirley Operator Name Role Phone Roxanna Acosta MD Primary Care Provider Encounter Details Date Type Department Care Team (Late st Contact Info) Description 06/18/2007 Outpatient Historical [facility] MORTGAGE LOAN OFFICER - Medical [address] [address] Enrique Mckinney MD [address] [place] [address] Social History Tobacco Use Types Packs/Day Years Used Date Smoking Tobacco: Never Assessed Comments Unknown Sex and Gender Information Value Date Recorded Sex Assigned at Not on file Legal Sex Female 4:02 AM PASSPORT APPLICATION EXAMINER Gender Identity Not on file Sexual Orientation Not on file documented as of this encounter Plan of Treatment Not on file documented as of this encounter Visit Diagnoses Not on filedocumented in this encounter Care Teams Whirley Operator Relationship Specialty Start Date End Date Roxanna Acosta MD PCP - General Family Practice 02/19/12 documented as of this encounter
--- OUTSIDE RECORDS SUMMARY | 2025-07-14 06:56 | XMS_ITS | Encounter Summary ---
Author Organization [facility] Address [address] [place] [address] Care Team Providers Care Gang Worker Name Role Phone Roxanna Acosta MD Primary Care Provider [phone] Encounter Details Date Type Department Care Team (Late st Contact Info) Description 04/22/2007 Outpatient Historical [facility] YARDER OPERATOR - [address] [place] [address] Enrique Mckinney MD [address] [place] [address] [place] [address] Social History Tobacco Use Types Packs/Day Years Used Date Smoking Tobacco: Never Assessed Comments Unknown Sex and Gender Information Value Date Recorded Sex Assigned at Not on file Legal Sex Female 4:02 AM BRAIDER OPERATOR Gender Identity Not on file Sexual Orientation Not on file documented as of this encounter Plan of Treatment Not on file documented as of this encounter Visit Diagnoses Not on filedocumented in this encounter Care Teams Gang Worker Relationship Specialty Start Date End Date Roxanna Acosta MD PCP - General Family Practice 02/19/12 documented as of this encounter
--- OUTSIDE RECORDS SUMMARY | 2025-07-14 06:56 | XMS_ITS | Encounter Summary ---
Author Organization [facility] Address [address] [place] [address] Care Team Providers Care Art Psychotherapist Name Role Phone Roxanna Acosta MD Primary Care Provider [phone] Encounter Details Date Type Department Care Team (Late st Contact Info) Description 07/15/2007 Outpatient Historical [facility] FOLDING MACHINE OPERATOR - [address] [place] [address] Enrique Mckinney MD [address] [place] [address] [place] [phone] Social History Tobacco Use Types Packs/Day Years Used Date Smoking Tobacco: Never Assessed Comments Unknown Sex and Gender Information Value Date Recorded Sex Assigned at Not on file Legal Sex Female 4:02 AM PHARMACY SERVICE ASSOCIATE Gender Identity Not on file Sexual Orientation Not on file documented as of this encounter Plan of Treatment Not on file documented as of this encounter Visit Diagnoses Not on filedocumented in this encounter Care Teams Art Psychotherapist Relationship Specialty Start Date End Date Roxanna Acosta MD PCP - General Family Practice 02/19/12 documented as of this encounter
--- OUTSIDE RECORDS SUMMARY | 2025-07-14 06:57 | XMS_ITS | Encounter Summary ---
Author Organization [facility] Address [address] [place] [address] Care Team Providers Care Gre Tutor Name Role Phone Roxanna Acosta MD Primary Care Provider Encounter Details Date Type Department Care Team (Late st Contact Info) Description 09/08/2007 Outpatient Historical [facility] ART GALLERY DIRECTOR - [address] [place] [address] Enrique Mckinney MD [address] [place] [address] [place] [phone] Social History Tobacco Use Types Packs/Day Years Used Date Smoking Tobacco: Never Assessed Comments Unknown Sex and Gender Information Value Date Recorded Sex Assigned at Not on file Legal Sex Female 4:02 AM CRYSTAL GRINDER Gender Identity Not on file Sexual Orientation Not on file documented as of this encounter Plan of Treatment Not on file documented as of this encounter Visit Diagnoses Not on filedocumented in this encounter Care Teams Gre Tutor Relationship Specialty Start Date End Date Roxanna Acosta MD PCP - General Family Practice 02/19/12 documented as of this encounter
--- OUTSIDE RECORDS SUMMARY | 2025-07-14 06:57 | XMS_ITS | Encounter Summary ---
Author Organization [facility] Address [address] [place] [address] Care Team Providers Care Minesweeping Officer Name Role Phone Roxanna Acosta MD Primary Care Provider [phone] Encounter Details Date Type Department Care Team (Late st Contact Info) Description 10/05/2007 Outpatient Historical [facility] VICE PRESIDENT MISSION INTEGRATION - Medical [place] [address] [facility] [address] [address] Epifanio Jones MD NO ADDRESS ON FILE Social History Tobacco Use Types Packs/Day Years Used Date Smoking Tobacco: Never Assessed Comments Unknown Sex and Gender Information Value Date Recorded Sex Assigned at Not on file Legal Sex Female 4:02 AM PHYSICAL CHEMIST Gender Identity Not on file Sexual Orientation Not on file documented as of this encounter Plan of Treatment Not on file documented as of this encounter Visit Diagnoses Not on filedocumented in this encounter Care Teams Minesweeping Officer Relationship Specialty Start Date End Date Roxanna Acosta MD PCP - General Family Practice 02/19/12 documented as of this encounter
--- OUTSIDE RECORDS SUMMARY | 2025-07-14 06:57 | XMS_ITS | Encounter Summary ---
Author Organization [facility] Address [address] [place] [address] Care Team Providers Care Mason Helper Name Role Phone Roxanna Acosta MD Primary Care Provider Encounter Details Date Type Department Care Team (Latest Contact Info) Description 05/20/2007 Outpatient Historical [facility] RAIL OPERATOR - [address] [place] [address] Enrique Mckinney MD [address] [facility] [address] [facility] [place] [address] State, Incidental (Primary Dx) Social History Tobacco Use Types Packs/Day Years Used Date Smoking Tobacco: Never Assessed Comments Unknown Sex and Gender Information Value Date Recorded Sex Assigned at Not on file Legal Sex Female 4:02 AM FILLER BLENDER Gender Identity Not on file Sexual Orientation [...] MD CHEMISTRY ORDERABLES Edited Performing Organization Address [facility] de Phone Number INTERFACE SYSTEM Refer [...] MD HEMATOLOGY ORDERABLES Edited Performing Organization Address [facility] de Phone Number INTERFACE SYSTEM Refer [...] MD HEMATOLOGY ORDERABLES Edited Performing Organization Address [facility] Phone Number INTERFACE SYSTEM Refer to clinic/hospital department * HIV ANTIBODY W/REFLX CONFIRMATION (05/20/2007 4:45 PM CDT) HIV-1 AND 2 ABS NON-REACTI VE NON-REACT BREEZY INTERFACE SYSTEM Comment: Effective January 05, 2007, HIV 1/2 Antibody Screen with Reflexed Confirmati on has replaced HIV-1 Antibody Screen. HIV-1 Antibody Screen is no longer offered due to lack of available kits from the chemic mangler. A NON-REACTIVE HIV 1/2 ANTIBODY RESULT DOES NOT EXCLUDE HIV INFECTION SINCE THE TIME FRAME FOR SEROCONVERSION IS VARIABLE. IF ACUTE HIV INFECTION IS SUSPECTED, ANTIBODY RETESTING AND NUCLEIC ACID AMPLIFICATION (HIV DNA/RNA) TESTING IS RECOMMENDED. Lab test performed by: [facility] [id number] [place] [address] ALLIE CARDENAS MD 05/20/2007 4:45 PM CDT us Enrique Mckinney MD CHEMISTRY ORDERABLES Edited Performing Organization Address [facility] Phone Number INTERFACE SYSTEM Refer to clinic/hospital department * HEPATITIS B SURFACE ANTIGEN (05/20/2007 4:45 PM CDT) HEPATITIS B SURFACE AG NON-REACTI VE NON-REACT BREEZY INTERFACE SYSTEM Comment: Lab test performed by: [facility] [id number] [employer] [employer] [id number] ALLIE CARDENAS MD 05/20/2007 4:45 PM CDT Enrique Mckinney MD CHEMISTRY ORDERABLES Edited Performing Organization Address [facility] Phone Number INTERFACE SYSTEM Refer [...] WITH RUBELLA VIRUS. Lab test performed by: [facility] [id number] ALLIE CARDENAS MD 05/20/2007 4:45 PM CDT Enrique Mckinney MD CHEMISTRY ORDERABLES Edited Performing Organization Address [facility] Phone Number INTERFACE SYSTEM Refer to clinic/hospital department * RPR (05/20/2007 4:45 PM CDT) RPR NON-REACTI VE NON-REACT BREEZY INTERFACE SYSTEM Comment: Lab test performed by: [facility] [id number] [address] [employer] [id number] ALLIE CARDENAS MD 05/20/2007 4:45 PM CDT Enrique Mckinney MD CHEMISTRY ORDERABLES Edited Performing Organization Address [facility] Phone Number INTERFACE SYSTEM Refer to clinic/hospital department documented in this encounter Visit Diagnoses Diagnosis state, incidental- Primary documented in this encounter Care Teams Mason Helper Relationship Specialty Start Date End Date Roxanna Acosta MD PCP - General Family Practice 02/19/12 documented as of this encounter
--- OUTSIDE RECORDS SUMMARY | 2025-07-14 06:57 | XMS_ITS | Encounter Summary ---
Author Organization [facility] Address [address] [place] [address] Care Team Providers Care Bulb Packer Name Role Phone Roxanna Acosta MD Primary Care Provider Encounter Details Date Type Department Care Team (Late st Contact Info) Description 09/11/2007 Outpatient Historical [facility] TECHNICIAN HELPER INSTRUMENT - [address] [place] [address] Enrique Mckinney MD [address] [place] [address] [place] [phone] Social History Tobacco Use Types Packs/Day Years Used Date Smoking Tobacco: Never Assessed Comments Unknown Sex and Gender Information Value Date Recorded Sex Assigned at Not on file Legal Sex Female 4:02 AM AUDIT LEAD Gender Identity Not on file Sexual Orientation Not on file documented as of this encounter Plan of Treatment Not on file documented as of this encounter Visit Diagnoses Not on filedocumented in this encounter Care Teams Bulb Packer Relationship Specialty Start Date End Date Roxanna Acosta MD PCP - General Family Practice 02/19/12 documented as of this encounter
--- OUTSIDE RECORDS SUMMARY | 2025-07-14 06:57 | XMS_ITS | Encounter Summary ---
Author Organization [facility] Address [address] [place] [address] Care Team Providers Care Cook Helper Meat Name Role Phone Roxanna Acosta MD Primary Care Provider Encounter Details Date Type Department Care Team (Latest Contact Info) Description 10/05/2007 Outpatient Historical [facility] [address] Epifanio Jones MD NO ADDRESS ON FILE Supervision of Other Normal Social History Tobacco Use Types Packs/Day Years Used Date Smoking Tobacco: Never Assessed Comments Unknown Sex and Gender Information Value Date Recorded Sex Assigned at Not on file Legal Sex Female 4:02 AM BALL MILL MIXER Gender Identity Not on file Sexual Orientation Not on file documented as of this encounter Plan of Treatment Not on file documented as of this encounter Procedures Procedure Name Priority Date/Time Associated Diagnosis Comments (BROTH-ENRICHED) GROUP B STREP DETECTION Routine 10/05/2007 5:22 PM BALL MILL MIXER documented in this encounter Results * STREPTOCOCCUS GROUP B CULTURE (10/05/2007 5:22 PM BALL MILL MIXER) PRELIMINARY REPORT Pending INTERFACE SYSTEM FINAL REPORT No Streptococcus Group B isolated. INTERFACE SYSTEM Vaginal 10/05/2007 5:22 PM BALL MILL MIXER 10/05/2007 5:26 PM BALL MILL MIXER Epifanio Jones MD MICROBIOLOGY - GENERAL ORDERABL ES Final Result INTERFACE SYSTEM Refer to clinic/hospital department documented in this encounter Visit Diagnoses Diagnosis Supervision of other normal documented in this encounter Care Teams Cook Helper Meat Relationship Specialty Start Date End Date Roxanna Acosta MD PCP - General Family Practice 02/19/12 documented as of this encounter
--- OUTSIDE RECORDS SUMMARY | 2025-07-14 06:57 | XMS_ITS | Encounter Summary ---
Author Organization [facility] Address [address] [place] [address] Care Team Providers Care Plating Inspector Name Role Phone Roxanna Acosta MD Primary Care Provider Encounter Details Date Type Department Care Team (Late st Contact Info) Description 04/02/2007 Outpatient Historical [facility] PHYSICIAN PRACTICE COORDINATOR - Medical [address] [address] Enrique Mckinney MD [address] [place] [phone] Social History Tobacco Use Types Packs/Day Years Used Date Smoking Tobacco: Never Assessed Comments Unknown Sex and Gender Information Value Date Recorded Sex Assigned at Not on file Legal Sex Female 4:02 AM TRANSPORTATION MAINTENANCE SPECIALIST Gender Identity Not on file Sexual Orientation Not on file documented as of this encounter Plan of Treatment Not on file documented as of this encounter Visit Diagnoses Not on filedocumented in this encounter Care Teams Plating Inspector Relationship Specialty Start Date End Date Roxanna Acosta MD PCP - General Family Practice 02/19/12 documented as of this encounter
--- OUTSIDE RECORDS SUMMARY | 2025-07-14 06:57 | XMS_ITS | Encounter Summary ---
Author Organization [facility] Address [address] [place] [address] Care Team Providers Care Dope Sprayer Name Role Phone Roxanna Acosta MD Primary Care Provider Encounter Details Date Type Department Care Team (Late st Contact Info) Description 03/27/2007 Outpatient Historical [facility] LOWER SCHOOL MUSIC TEACHER - [address] [place] [address] Enrique Mckinney MD [address] [place] [address] [place] [phone] Social History Tobacco Use Types Packs/Day Years Used Date Smoking Tobacco: Never Assessed Comments Unknown Sex and Gender Information Value Date Recorded Sex Assigned at Not on file Legal Sex Female 4:02 AM BUTTONHOLE MAKER Gender Identity Not on file Sexual Orientation Not on file documented as of this encounter Plan of Treatment Not on file documented as of this encounter Visit Diagnoses Not on filedocumented in this encounter Care Teams Dope Sprayer Relationship Specialty Start Date End Date Roxanna Acosta MD PCP - General Family Practice 02/19/12 documented as of this encounter
--- OUTSIDE RECORDS SUMMARY | 2025-07-14 06:58 | XMS_ITS | Encounter Summary ---
Author Organization [facility] Address [address] [place] [address] Care Team Providers Care Codifier Name Role Phone Roxanna Acosta MD Primary Care Provider Encounter Details Date Type Department Care Team (Late st Contact Info) Description 07/29/2007 Outpatient Historical [facility] Enrique Mckinney MD [address] [address] Social History Tobacco Use Types Packs/Day Years Used Date Smoking Tobacco: Never Assessed Comments Unknown Sex and Gender Information Value Date Recorded Sex Assigned at Not on file Legal Sex Female 4:02 AM BAND NAILER Gender Identity Not on file Sexual Orientation Not on file documented as of this encounter Plan of Treatment Not on file documented as of this encounter Procedures Procedure Name Priority Date/Time Associated Diagnosis Comments URINALYSIS WITH REFLEX CULTURE Routine 07/29/2007 12:18 PM BAND NAILER URINALYSIS W/REFLEX MICROSCOPIC Routine 07/29/2007 12:18 PM BAND NAILER documented in this encounter Results * URINALYSIS (07/29/2007 12:18 PM BAND NAILER) COLOR UA Pale Yellow INTERFAC E SYSTEM [...] Negative INTERFACE SYSTEM 07/29/2007 12:1 8 PM BAND NAILER Enrique Mckinney MD URINE ORDERABLES Edited Performing Organization Address [facility] Phone Number INTERFACE SYSTEM Refer to clinic/hospital department * URINALYSIS WITH REFLEX CULTURE (07/29/2007 12:18 PM BAND NAILER) URINE CULTURE ORDER Not indicated INTERFACE SYSTEM Comment: Criteria for a reflex culture include one or more of the following: Abn ormal nitrite, leukocyte esterase, WBCs or RBCs. Lack of qualifying criteria does not exclude the possiblity of a urinary tract infection. Dilute urine, drug interference, etc. may decrease the sensitivity of the criteria analytes. 07/29/2007 12:1 8 PM BAND NAILER Enrique Mckinney MD URINE ORDERABLES Edited Performing Organization Address [facility] Phone Number INTERFACE SYSTEM Refer to clinic/hospital department documented in this encounter Visit Diagnoses Not on filedocumented in this encounter Care Teams Codifier Relationship Specialty Start Date End Date Roxanna Acosta MD PCP - General Family Practice 02/19/12 documented as of this encounter
--- OUTSIDE RECORDS SUMMARY | 2025-07-14 06:58 | XMS_ITS | Encounter Summary ---
Author Organization [facility] Address [address] [place] [address] Care Team Providers Care Launch Steward Name Role Phone Roxanna Acosta MD Primary Care Provider Encounter Details Date Type Department Care Team (Late st Contact Info) Description 08/13/2007 Outpatient Historical [facility] COPIER FIELD SERVICE TECHNICIAN - Medical [address] [address] Enrique Mckinney MD [address] [place] [address] Social History Tobacco Use Types Packs/Day Years Used Date Smoking Tobacco: Never Assessed Comments Unknown Sex and Gender Information Value Date Recorded Sex Assigned at Not on file Legal Sex Female 4:02 AM CUTTER OPERATOR BRICK Gender Identity Not on file Sexual Orientation Not on file documented as of this encounter Plan of Treatment Not on file documented as of this encounter Visit Diagnoses Not on filedocumented in this encounter Care Teams Launch Steward Relationship Specialty Start Date End Date Roxanna Acosta MD PCP - General Family Practice 02/19/12 documented as of this encounter
--- OUTSIDE RECORDS SUMMARY | 2025-07-14 06:59 | XMS_ITS | Encounter Summary ---
Author Organization [facility] Address [address] [place] [address] Care Team Providers Care Chipper Feeder Name Role Phone Roxanna Acosta MD Primary Care Provider Encounter Details Date Type Department Care Team (Late st Contact Info) Description 08/13/2007 Outpatient Historical [facility] SENIOR SOFTWARE TEST ENGINEER - Medical [address] [address] Enrique Mckinney MD [address] [place] [address] Social History Tobacco Use Types Packs/Day Years Used Date Smoking Tobacco: Never Assessed Comments Unknown Sex and Gender Information Value Date Recorded Sex Assigned at Not on file Legal Sex Female 4:02 AM IDENTIFICATION AND RECORDS COMMANDER Gender Identity Not on file Sexual Orientation Not on file documented as of this encounter Plan of Treatment Not on file documented as of this encounter Visit Diagnoses Not on filedocumented in this encounter Care Teams Chipper Feeder Relationship Specialty Start Date End Date Roxanna Acosta MD PCP - General Family Practice 02/19/12 documented as of this encounter
--- OUTSIDE RECORDS SUMMARY | 2025-07-14 06:59 | XMS_ITS | Encounter Summary ---
Author Organization [employer] Address [address] [place] [address] Care Team Providers Care Yeast Maker Name Role Phone Roxanna Acosta MD Primary Care Provider [phone] Encounter Details Date Type Department Care Team (Latest Contact Info) Description 08/17/2007 Outpatient Historical [facility] Naveed Means MD [address] [facility] [address] [place] [address] Other Specified Complication, Antepartum Social History Tobacco Use Types Packs/Day Years Used Date Smoking Tobacco: Never Assessed Comments Unknown Sex and Gender Information Value Date Recorded Sex Assigned at Not on file Legal Sex Female 4:02 AM POWER CLEANER OPERATOR Gender Identity Not on file Sexual Orientation Not on file documented as of this encounter Plan of Treatment Not on file documented as of this encounter Visit Diagnoses Diagnosis Other specified complication, antepartum(646.83) Other specified complication, antepartum documented in this encounter Care Teams Yeast Maker Relationship Specialty Start Date End Date Roxanna Acosta MD PCP - General Family Practice 02/19/12 documented as of this encounter
--- OUTSIDE RECORDS SUMMARY | 2025-07-14 07:00 | XMS_ITS | Encounter Summary ---
Author Organization [employer] Address [address] [place] [address] Care Team Providers Care Residential Living Assistant Name Role Phone Roxanna Acosta MD Primary Care Provider Encounter Details Date Type Department Care Team (Latest Contact Info) Description 07/16/2007 Outpatient Historical [facility] Enrique Mckinney MD [address] [facility] [address] [facility] [place] [address] Naveed Means MD [facility] [address] [facility] [address] [place] [address] Other Specified Complication, Antepartum Social History Tobacco Use Types Packs/Day Years Used Date Smoking Tobacco: Never Assessed Comments Unknown Sex and Gender Information Value Date Recorded Sex Assigned at Not on file Legal Sex Female 4:02 AM QLIKVIEW DEVELOPER Gender Identity Not on file Sexual Orientation Not on file documented as of this encounter Plan of Treatment Not on file documented as of this encounter Visit Diagnoses Diagnosis Other specified complication, antepartum(646.83) Other specified complication, antepartum documented in this encounter Care Teams Residential Living Assistant Relationship Specialty Start Date End Date Roxanna Acosta MD PCP - General Family Practice 02/19/12 documented as of this encounter
--- OUTSIDE RECORDS SUMMARY | 2025-07-14 07:00 | XMS_ITS | Encounter Summary ---
Author Organization [facility] Address 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 - [address] [place] [address] [place] [address] Enrique Mckinney MD [address] [place] [address] [place] [phone] Social History Tobacco Use Types Packs/Day Years Used Date Smoking Tobacco: Never Assessed Comments Unknown Sex and Gender Information Value Date Recorded Sex Assigned at Not on file Legal Sex Female 4:02 AM PARTS COORDINATOR Gender Identity Not on file Sexual Orientation Not on file documented as of this encounter Plan of Treatment Not on file documented as of this encounter Visit Diagnoses Not on filedocumented in this encounter Care Teams Automobile Tester Relationship Specialty Start Date End Date Roxanna Acosta MD PCP - General Family Practice 02/19/12 documented as of this encounter
--- OUTSIDE RECORDS SUMMARY | 2025-07-14 07:00 | XMS_ITS | Clinical Summary ---
Author Organization [facility] Address [address] [place] [address] Care Team Providers Care Cell Room Operator Name Role Phone Tracey Patel MD Primary Care Provider [phone] [facility],non-owned Affiliates and Associated Physician Practices is amultiple site organization consisting of ambulatory clinics and hospital sitesin [place], [place], [place] and [place]. This disclosure is being madepursuant to the Care Everywhere program and may not contain all information available regarding this patient. Last updated 18.[employer] Allergies No known active allergies Medications * [...] on file Legal Sex Female 6:01 AM POCKET CLOSER Gender Identity Not on file Sexual Orientation [...] Report), 07/09/2017 DEPRESSION SCREENING 08/04/2024 COVID-19 VACCINE (1 - 2024-2 6 season) 2025 INFLUENZA VACCINE (#1) 2025 [...] MAMMO BILAT DIAGNOSTIC Routine 07/17/2017 10:10 AM POCKET CLOSER Left breast lump PAP IG LB +HPV APTIMA REFLEX 16,18/45 Routine 07/09/2017 3:07 PM POCKET CLOSER Well woman exam with routine gynecological exam Screening for HPV (human papillomavirus) COMPREHENSIVE METABOLIC PANEL Routine 06/17/2017 10:22 AM POCKET CLOSER Annual physical exam LIPID PROFILE W TCHOL/HDL Routine 06/17/2017 10:22 AM POCKET CLOSER Annual physical exam from Last 3 Months or Most Recently Relevant to Health Maintenance Results * MAMMO DIAG DIRECT DIGITAL IMAGE BILA [id number] (07/17/2017 10:10 AM POCKET CLOSER) Anatomical Region Laterality Modality Bilateral Mammography 07/17/2017 11:1 7 AM POCKET CLOSER Narrative 07/17/2017 11:24 AM POCKET CLOSER DIGITAL BILATERAL DIAGNOSTIC MAMMOGRAMS WITH CAD CORRELATION [...] if suspicious findings are present clinically. An [employer] Certified Facility. [facility] utilize [employer] as a reminder system to notify patients of their next recommended mammogram. Edited by Jennifer Stockton on 07/17/2017 11:23 AM us Joyce Saldivar MD MAMMO ORDERABLES Final Result * (ABNORMAL) PAP IG LB +HPV APTIMA REFLEX 16,18/45 (07/09/2017 3:07 PM POCKET CLOSER) Diagnosis (A) [facility] ACCOUNT BILL Comment: EPITHELIAL [...] UTERINE CERVIX / Unknown 07/09/2017 3:07 PM POCKET CLOSER 07/09/2017 Narrative [facility] ACCOUNT BILL - 07/15/2017 5:10 PM POCKET CLOSER Source.............Cervix LMP / Prev Treat...CEM=[id number] No. of containers..01 ThinPrep Vial Resulting Agency Comment [facility] Jason Buckley [place] Marylin GONZALEZ [id number] us Joyec Saldivar MD LAB - PATHOLOGY/CYTOLOGY ORDER CARLOS ENRIQUE Final Result Performing Organization Address [facility] Co de Phone Number [facility] ACCOUNT BILL [address] [place] [address] * LIPID PROFILE W TCHOL/HDL (06/17/2017 10:22 AM POCKET CLOSER) Cholesterol 185 <200 mg/dL [facility] ACCOUNT BILL [...] BLOOD SPECIMEN / Unknown 06/17/2017 10:22 AM POCKET CLOSER 06/17/2017 Narrative Resulting Agency Comment [facility] [address] [place] [phone] us Tracey Patel MD LAB - CHEMISTRY ORDERABLES Heather l Result Performing Organization Address City/[facility] Co de Phone Number [facility] ACCOUNT BILL [address] [place] [address] * (ABNORMAL) COMPREHENSIVE METABOLIC PANEL (06/17/2017 10:22 AM POCKET CLOSER) Glucose 79 74 - 106 mg/dL [facility] [...] BLOOD SPECIMEN / Unknown 06/17/2017 10:22 AM POCKET CLOSER 06/17/2017 Narrative Resulting Agency Comment [facility] [address] [place] [id number] Tracey Patel MD LAB - CHEMISTRY ORDERABLES Heather l Result [facility] ACCOUNT BILL [address] [place] [address] from Last 3 Months or Most Recently Relevant to Health Maintenance Insurance [facility] Care Teams Cell Room Operator Relationship Specialty Start Date End Date Tracey Patel MD PCP - General Family Medicine 06/13/17
--- OUTSIDE RECORDS SUMMARY | 2025-07-14 07:00 | XMS_ITS | Encounter Summary ---
Author Organization [facility] Address [address] [place] [address] Care Team Providers Care Sound Equipment Mechanic Name Role Phone Roxanna Acosta MD Primary Care Provider Encounter Details Date Type Department Care Team (Late st Contact Info) Description 07/20/2007 Outpatient Historical [facility] Maternal and Ground [address] [place] [address] Naveed Means MD [address] [place] [address] Social History Tobacco Use Types Packs/Day Years Used Date Smoking Tobacco: Never Assessed Comments Unknown Sex and Gender Information Value Date Recorded Sex Assigned at Not on file Legal Sex Female 4:02 AM MUSIC GRAPHER Gender Identity Not on file Sexual Orientation Not on file documented as of this encounter Plan of Treatment Not on file documented as of this encounter Visit Diagnoses Not on filedocumented in this encounter Care Teams Sound Equipment Mechanic Relationship Specialty Start Date End Date Roxanna Acosta MD PCP - General Family Practice 02/19/12 documented as of this encounter
--- OUTSIDE RECORDS SUMMARY | 2025-07-14 07:01 | XMS_ITS | Encounter Summary ---
Author Organization [facility] Address [address] [place] [address] Care Team Providers Care Field Nurse Case Manager Name Role Phone Roxanna Acosta MD Primary Care Provider [phone] Encounter Details Date Type Department Care Team (Late st Contact Info) Description 11/19/2002 Outpatient [facility] Primary Care - [address] [place] [address] Otf Talavera Social History Tobacco Use Types Packs/Day Years Used Date Smoking Tobacco: Never Assessed Comments Unknown Sex and Gender Information Value Date Recorded Sex Assigned at Not on file Legal Sex Female 4:02 AM DIETETIC ASSISTANT Gender Identity Not on file Sexual Orientation Not on file documented as of this encounter Plan of Treatment Not on file documented as of this encounter Visit Diagnoses Not on filedocumented in this encounter Care Teams Field Nurse Case Manager Relationship Specialty Start Date End Date Roxanna Acosta MD PCP - General Family Practice 02/19/12 documented as of this encounter
--- OUTSIDE RECORDS SUMMARY | 2025-07-14 07:01 | XMS_ITS | Encounter Summary ---
Author Organization [facility] Address [address] [place] [address] Care Team Providers Care Finish Grinder Name Role Phone Roxanna Acosta MD Primary Care Provider Encounter Details Date Type Department Care Team (Late st Contact Info) Description 12/20/2002 Outpatient [facility] Primary Care - [address] [place] [address] Otf Talavera Social History Tobacco Use Types Packs/Day Years Used Date Smoking Tobacco: Never Assessed Comments Unknown Sex and Gender Information Value Date Recorded Sex Assigned at Not on file Legal Sex Female 4:02 AM CONSTRUCTION EQUIPMENT MECHANIC Gender Identity Not on file Sexual Orientation Not on file documented as of this encounter Plan of Treatment Not on file documented as of this encounter Visit Diagnoses Not on filedocumented in this encounter Care Teams Finish Grinder Relationship Specialty Start Date End Date Roxanna Acosta MD PCP - General Family Practice 02/19/12 documented as of this encounter
--- OUTSIDE RECORDS SUMMARY | 2025-07-14 07:01 | XMS_ITS | Encounter Summary ---
Author Organization [facility] Address [address] [place] [address] Care Team Providers Care Hurl Shaker Name Role Phone Roxanna Acosta MD Primary Care Provider Encounter Details Date Type Department Care Team (Late st Contact Info) Description 10/18/2002 Outpatient [facility] Primary Care - [address] [place] [address] Otf Talavera Social History Tobacco Use Types Packs/Day Years Used Date Smoking Tobacco: Never Assessed Comments Unknown Sex and Gender Information Value Date Recorded Sex Assigned at Not on file Legal Sex Female 4:02 AM WAIST PLEATER Gender Identity Not on file Sexual Orientation Not on file documented as of this encounter Plan of Treatment Not on file documented as of this encounter Visit Diagnoses Not on filedocumented in this encounter Care Teams Hurl Shaker Relationship Specialty Start Date End Date Roxanna Acosta MD PCP - General Family Practice 02/19/12 documented as of this encounter
--- OUTSIDE RECORDS SUMMARY | 2025-07-14 07:02 | XMS_ITS | Encounter Summary ---
Author Organization [employer] Address [address] [place] [address] Care Team Providers Care Night Shift Manager Name Role Phone Roxanna Acosta MD Primary Care Provider Encounter Details Date Type Department Care Team (Late st Contact Info) Description 06/14/2002 Outpatient Historical [facility] [address] [place] [address] [place] Gannon MD NO ADDRESS ON FILE Social History Tobacco Use Types Packs/Day Years Used Date Smoking Tobacco: Never Assessed Comments Unknown Sex and Gender Information Value Date Recorded Sex Assigned at Not on file Legal Sex Female 4:02 AM MACHINE OPERATOR HELPER Gender Identity Not on file Sexual Orientation Not on file documented as of this encounter Plan of Treatment Not on file documented as of this encounter Visit Diagnoses Not on filedocumented in this encounter Care Teams Night Shift Manager Relationship Specialty Start Date End Date Roxanna Acosta MD PCP - General Family Practice 02/19/12 documented as of this encounter
--- OUTSIDE RECORDS SUMMARY | 2025-07-14 07:02 | XMS_ITS | Encounter Summary ---
Author Organization [facility] Address [address] [place] [address] Care Team Providers Care Offshore Wind Operations Manager Name Role Phone Tracey Patel MD Primary Care Provider [phone] Tracey Patel MD Unavailable [phone] Encounter Details Date Type Department Care Team (Late st Contact Info) Description 04/16/2018 [facility] Outpatient Visit EXTERNAL NON-[facility] DEPT Tracey Patel MD [address] [place] [address] Social History Tobacco Use Types Packs/Day Years Used Date Smoking Tobacco: Never Smokeless Tobacco: Never Alcohol Use Standard Drinks/Week Comments Yes 0 (1 standard drink = 0.6 oz pur e alcohol) socially Comments No Sex and Gender Information Value Date Recorded Sex Assigned at Not on file Legal Sex Female 6:01 AM PUBLIC HEALTH SPECIALIST Gender Identity Not on file Sexual Orientation Not on file documented as of this encounter Plan of Treatment Not on file documented as of this encounter Visit Diagnoses Not on filedocumented in this encounter Care Teams Offshore Wind Operations Manager Relationship Specialty Start Date End Date Tracey Patel MD PCP - General Family Medicine 06/13/17 Tracey Patel MD [address] [place] [address] PCP - Attributed-C Commercial 12/19/18 12/19/18 documented as of this encounter
--- OUTSIDE RECORDS SUMMARY | 2025-07-14 07:02 | XMS_ITS | Encounter Summary ---
Author Organization [facility] Address [address] [place] [address] Care Team Providers Care Marble Setter Name Role Phone Roxanna Acosta MD [...] on file Legal Sex Female 4:02 AM INFANT CAREGIVER Gender Identity Not on file Sexual Orientation Not on file documented as of this encounter Plan of Treatment Not on file documented as of this encounter Visit Diagnoses Diagnosis Undiagnosed cardiac murmurs- Primary documented in this encounter Care Teams Marble Setter Relationship Specialty Start Date End Date Roxanna Acosta MD PCP - General Family Practice 02/19/12 documented as of this encounter
--- OUTSIDE RECORDS SUMMARY | 2025-07-14 07:02 | XMS_ITS | Encounter Summary ---
Author Organization [facility] Address [address] [place] [address] Care Team Providers Care Betting Agency Manager Name Role Phone Roxanna Acosta MD Primary Care Provider Encounter Details Date Type Department Care Team (Late st Contact Info) Description 07/07/2002 Outpatient [facility] Primary Care - [address] [place] [address] Otf Talavera Social History Tobacco Use Types Packs/Day Years Used Date Smoking Tobacco: Never Assessed Comments Unknown Sex and Gender Information Value Date Recorded Sex Assigned at Not on file Legal Sex Female 4:02 AM SHUTTLE SPOTTER Gender Identity Not on file Sexual Orientation Not on file documented as of this encounter Plan of Treatment Not on file documented as of this encounter Visit Diagnoses Not on filedocumented in this encounter Care Teams Betting Agency Manager Relationship Specialty Start Date End Date Roxanna Acosta MD PCP - General Family Practice 02/19/12 documented as of this encounter
--- OUTSIDE RECORDS SUMMARY | 2025-07-14 07:02 | XMS_ITS | Encounter Summary ---
Author Organization [facility] Address [address] [place] [address] Care Team Providers Care Black Pickler Name Role Phone Roxanna Acosta MD Primary Care Provider [phone] Encounter Details Date Type Department Care Team (Late st Contact Info) Description 12/29/2002 Outpatient [facility] Primary Care - [address] [place] [address] Otf Talavera Social History Tobacco Use Types Packs/Day Years Used Date Smoking Tobacco: Never Assessed Comments Unknown Sex and Gender Information Value Date Recorded Sex Assigned at Not on file Legal Sex Female 4:02 AM MEMS PROCESS ENGINEER Gender Identity Not on file Sexual Orientation Not on file documented as of this encounter Plan of Treatment Not on file documented as of this encounter Visit Diagnoses Not on filedocumented in this encounter Care Teams Black Pickler Relationship Specialty Start Date End Date Roxanna Acosta MD PCP - General Family Practice 02/19/12 documented as of this encounter
--- OUTSIDE RECORDS SUMMARY | 2025-07-14 07:03 | XMS_ITS | Encounter Summary ---
Author Organization [facility] Address [address] [place] [address] Care Team Providers Care Box Coverer Hand Name Role Phone Roxanna Acosta MD Primary Care Provider [phone] Encounter Details Date Type Department Care Team (Late st Contact Info) Description 12/30/2001 Outpatient [facility] Primary Care - [address] [place] [address] Otf Talavera Social History Tobacco Use Types Packs/Day Years Used Date Smoking Tobacco: Never Assessed Comments Unknown Sex and Gender Information Value Date Recorded Sex Assigned at Not on file Legal Sex Female 4:02 AM PRACTICE ADMINISTRATOR Gender Identity Not on file Sexual Orientation Not on file documented as of this encounter Plan of Treatment Not on file documented as of this encounter Visit Diagnoses Not on filedocumented in this encounter Care Teams Box Coverer Hand Relationship Specialty Start Date End Date Roxanna Acosta MD PCP - General Family Practice 02/19/12 documented as of this encounter
--- OUTSIDE RECORDS SUMMARY | 2025-07-14 07:03 | XMS_ITS | Encounter Summary ---
Author Organization [facility] Address [address] [place] [address] Care Team Providers Care Optical Advisor Name Role Phone Roxanna Acosta MD Primary Care Provider Encounter Details Date Type Department Care Team (Late st Contact Info) Description 05/31/2002 Outpatient [facility] Primary Care - [address] [place] [id number] Otf Talavera Social History Tobacco Use Types Packs/Day Years Used Date Smoking Tobacco: Never Assessed Comments Unknown Sex and Gender Information Value Date Recorded Sex Assigned at Not on file Legal Sex Female 4:02 AM PRINCIPAL PROGRAMMER Gender Identity Not on file Sexual Orientation Not on file documented as of this encounter Plan of Treatment Not on file documented as of this encounter Visit Diagnoses Not on filedocumented in this encounter Care Teams Optical Advisor Relationship Specialty Start Date End Date Roxanna Acosta MD PCP - General Family Practice 02/19/12 documented as of this encounter
--- OUTSIDE RECORDS SUMMARY | 2025-07-14 07:03 | XMS_ITS | Encounter Summary ---
Author Organization [facility] Address [address] [place] [address] Care Team Providers Care Take Up Supervisor Name Role Phone Roxanna Acosta MD Primary Care Provider [phone] Encounter Details Date Type Department Care Team (Late st Contact Info) Description 04/14/2002 Outpatient [facility] Primary Care - [address] [place] [phone] Otf Talavera Social History Tobacco Use Types Packs/Day Years Used Date Smoking Tobacco: Never Assessed Comments Unknown Sex and Gender Information Value Date Recorded Sex Assigned at Not on file Legal Sex Female 4:02 AM CORRECTIONAL SUPERVISING COOK Gender Identity Not on file Sexual Orientation Not on file documented as of this encounter Plan of Treatment Not on file documented as of this encounter Visit Diagnoses Not on filedocumented in this encounter Care Teams Take Up Supervisor Relationship Specialty Start Date End Date Roxanna Acosta MD PCP - General Family Practice 02/19/12 documented as of this encounter
--- OUTSIDE RECORDS SUMMARY | 2025-07-14 07:04 | XMS_ITS | Encounter Summary ---
Author Organization [facility] Address [address] [place] [address] Care Team Providers Care Ultimate Hoops Scoreboard Operator Name Role Phone Citlali Gómez DO Primary Care Provider [phone] Encounter Details Date Type Department Care Team (Late st Contact Info) Description 06/28/2025 Telephone [facility] [place] [address] [place] [address] Cori Dow NP [address] [place] [address] [address] [place] [address] Social History Tobacco Use Types Packs/Day Years Used Date Smoking Tobacco: Never Assessed Comments Unknown Sex and Gender Information Value Date Recorded Sex Assigned at Not on file Legal Sex Female 7:01 PM QUALIFICATION ENGINEER Gender Identity Not on file Sexual Orientation Not on file documented as of this encounter Miscellaneous Notes * Telephone Encounter - Tracey Scott - 06/28/2025 9:52 AM CST Patient returning a call about her x ray results, would like a call back. IFICATION ENGINEER documented in this encounter Plan of Treatment Not on file documented as of this encounter Visit Diagnoses Not on filedocumented in this encounter Care Teams Ultimate Hoops Scoreboard Operator Relationship Specialty Start Date End Date Citlali Gómez DO [address] [facility] [address] [place] [address] PCP - General Family Medicine 06/28/25 documented as of this encounter
--- OUTSIDE RECORDS SUMMARY | 2025-07-14 07:04 | XMS_ITS | Encounter Summary ---
Author Organization [facility] Healthcare Address [address] [place] [address] Care Team Providers Care Veneer Slicing Machine Operator Name Role Phone Citlali Gómez DO Primary Care Provider [phone] Encounter Details Date Type Department Care Team ([facility] st Contact Info) Description 06/28/2025 Results Follow-Up [facility] [place] [address] [place] [address] Cori Dow NP [address] [facility] [address] [place], [place] [id number] XR Clavicle Left Social History Tobacco Use Types Packs/Day Years Used Date Smoking Tobacco: Never Assessed Comments Unknown Sex and Gender Information Value Date Recorded Sex Assigned at Not on file Legal Sex Female 7:01 PM RAIL CAR OPERATOR Gender Identity Not on file Sexual Orientation Not on file documented as of this encounter Plan of Treatment Not on file documented as of this encounter Visit Diagnoses Not on filedocumented in this encounter Care Teams Veneer Slicing Machine Operator Relationship Specialty Start Date End Date Citlali Gómez DO [address] [facility] [address] [place], [place] [id number] PCP - General Family Medicine 06/28/25 documented as of this encounter
== END 2025-07-14 06:41 | disposition home or self-care (01) ==
LOC: ANHIMG 06:41
PROVIDERS: PCP Family Medicine; Visit Provider Family Medicine
DX: M89.319 Hypertrophy of bone, unspecified shoulder (principal)
CPT/HCPCS: 71250